=== PATIENT | female | born 1965 | race Caucasian/White ===

== ENCOUNTER 2025-03-29 13:23 | Emergency (ER) | payer SELFPAY ==
[2025-03-29 13:43] VITALS: BP 119/81; BP 140/86; PULSE 100; PULSE 101; RESP 19; TEMP 36.5; O2SAT 95; O2SAT 98; BMI 28.2
--- NOTE | 2025-03-29 14:02 | ED_ITS ---
HPI - General Adult General Chief complaint: General Medical Stated complaint: DIZZINESS SLURRED SPEECH FEET SWELLING Time Seen by Provider: 03/29/25 14:02 Source: patient and EMS Mode of arrival: EMS Limitations: no limitations History of Present Illness ED Provider: HPI narrative: 59-year-old transgender female presenting after she was picked up on the sidewalk she states that she was walking back home to [place], [place], states the weather was hot so she laid down to cool down on the sidewalk when somebody pulled up she told him she does not need help but was transported to the hospital, she was seen at [facility] and concerns were addressed she has a old lip plaque from a fall, and reports that has history of paraphimosis. Has not missed dialysis, no chest pain no slurred speech no new trauma. I looked at patient's visit from [facility]. Related Data Previous Rx's ?Medication ?Instructions ?Recorded clotrimazole-betamethasone 1 1 appl topical BID #15 gr ams 03/29/25 %-0.05 % topical cream Allergies Allergy/AdvReac Type Severity Reaction Status Date / Time No Known Allergies Allergy Verified 03/29/25 13:48 Review of Systems Constitutional: Constitutional: Reports as per HPI Physical Exam ED Vital Signs: Vital Signs - 24 hr 03/29/25 13:43 Temperature 97.7 F Pulse Rate 101 H Respiratory Rate 19 Blood Pressure 119/81 Pulse Oximetry 95 Oxygen Delivery Method Room Air BMI result Body Mass Index 28.2 Const Other: * Gen: ?Overall well-appearing patient * CV: RRR, no obvious murmurs appreciated * Resp: ?No wheezing rales rhonchi no stridor moving air well * Abd: ?Bowel sounds are present, no tenderness no rebound no rigidity * MSK: Bilateral pitting lower extremity edema, right side it AV fistula, functional * : Phimosis with balanitis * Skin: Noninfected lower lip scratch, no jaundice, noninfected skin markings * Neuro: ?Alert and oriented x3, moving upper and lower extremities symmetrically, no obvious facial asymmetry noted Medical Decision Making Medical Decision Making [facility] Narrative: 2:44 PM 03/29/2025 (Dr. Nithin Poe): with phimosis, balanitis we will discharge with clotrimazole and betamethasone to [facility] no new trauma, blood work at [facility] has been reassuring, patient states that there was no new falls reported, no SI or HI, has functional AV fistula, no evidence that patient requires repeat imaging or blood work Differential Diagnosis Differential Diagnoses: The differential diagnosis associated with the presentation includes (See above) Admission/Observation Consideration of admission/observation: Escalation of care including admiss ion/observation considered Independent Historian Clinical information obtained from an independent historian. History obtained from or confirmed by: EMS External Record Review External record reviewed: Outside ED record Tests considered The following testing was considered but not selected: CT brain, ECG, blood work Prescription Management I considered prescription management with: Antibiotic Discharge Plan Discharge Clinical Impression: ESRD (end stage renal disease) on dialysis, Bilateral edema of lower extremity Patient Disposition: Home, Self-Care Additional Instructions: Clean the area with gentle soap on wash with water, dry clean and put ointment twice a day I reviewed your workup at [facility] Otherwise please stay hydrated, get home safe Prescriptions: New clotrimazole-betamethasone 1-0.05 % cream 1 appl topical BID Qty: 15 0RF Print Language: Faroese
--- OUTSIDE RECORDS SUMMARY | 2025-03-29 14:05 | XMS_ITS ---
Author Name [facility] Organization Unknown Results Test Name/Text Value Interpretation Date Range Source BUN SerPl-mCnc 100.0 mg/dL Above high normal 03/26/20 2 5 8 - 21 [facility] CO2 SerPl-sCnc 23.0 mmol/L 5 22 - 33 [facility] Potassium SerPl-sCnc 5.0 mmol/L 5 3.4 - 5.3 [facility] BUN/Creat SerPl 9.0 Ratio Below low normal 03/26/20 2 5 10 - 25 [facility] Anion Gap Bld-sCnc 20.0 Above high normal 03/03 5 7 - 17 [facility] Chloride SerPl-sCnc 102.0 mmol/L 5 98 - 107 [facility] Glucose SerPl-mCnc 104.0 mg/dL Above high normal 03/03 5 65 - 99 [facility] Creat SerPl-mCnc 11.54 mg/dL Above high normal 5 0.4 - 1.1 [facility] Calcium SerPl-mCnc 9.4 mg/dL 5 8.7 - 10.5 [facility] GFR/BSA.pred SerPlBld AQT-VAL-VgVNgw 3.0 Below low normal 5 59 - [facility] Sodium SerPl-sCnc 145.0 mmol/L 5 136 - 145 [facility] LMWH PPP Project Design Engineer-aCnc >2.0 IU/mL Critically high 5 [facility] Anticoagulant APIXABAN (ELIQUIS) 03/26/20 2 5 [facility] aPTT PPP 35.0 seconds 5 25 - 36 [facility] Anticoagulant APIXABAN (ELIQUIS) 03/26/20 2 5 [facility] Prothrombin time 23.4 seconds Above high normal 5 10 - 13.5 [facility] INR PPP 2.0 5 [facility] Anticoagulant APIXABAN (ELIQUIS) 03/26/20 2 5 [facility] Imm Granulocytes/leuk NFr Bld Auto 1.1 % 5 [facility] MCH RBC Qn Auto 27.8 pg 5 27 - 31 [facility] Monocytes/leuk NFr Bld Auto 8.3 % 5 [facility] Monocytes num Bld Auto 0.38 Thou/uL 5 0.2 - 1.5 [facility] MCV RBC Auto 94.0 fL 5 80 - 100 [facility] Eosinophil/leuk NFr Bld Auto 3.7 % 5 [facility] Platelet num Bld Auto 138.0 Thou/uL Below low normal 5 150 - 450 [facility] PMV Bld Auto 11.8 fL 5 7.5 - 12.5 [facility] Hgb Bld-mCnc 11.6 g/dL Below low normal 5 11.7 - 15.7 [facility] Eosinophil num Bld Auto 0.17 Thou/uL 5 0 - 0.7 [facility] nRBC/100 WBC Bld Auto-Rto 1.1 /100 WBC Above high normal 5 0 - 0.1 [facility] Neutrophils num Bld Auto 2.63 Thou/uL 5 2 - 7.5 [facility] Basophils/leuk NFr Bld Auto 0.9 % 5 [facility] Neutrophils/leuk NFr Bld Auto 57.4 % 5 [facility] Basophils num Bld Auto 0.04 Thou/uL 5 0 - 0.2 [facility] Lymphocytes num Bld Auto 1.31 Thou/uL Below low normal 5 1.5 - 4.5 [facility] nRBC num Bld Auto 0.05 Thou/uL Above high normal 03/26 5 0 - 0.02 [facility] RDW RBC Auto-Rto 21.7 % Above high normal 5 11.5 - 14.5 [facility] Lymphocytes/leuk NFr Bld Auto 28.6 % 5 [facility] Imm Granulocytes num Bld Auto 0.05 Thou/uL 5 0 - 0.1 [facility]CT MCHC RBC Auto-mCnc 29.7 g/dL Below low normal 03/26 5 30 - 36 [facility] WBC num Bld Auto 4.6 Thou/uL 5 4 - 11 [facility] Hct VFr Bld Auto 39.0 % 5 35 - 47 [facility] RBC num Bld Auto 4.17 Mil/uL 5 4 - 5.4 [facility] Rh Bld Positive 5 [facility] Bld gp Ab Scn SerPl Ql Negative 5 [facility] ABO Group Bld A 5 [facility] Glucose SerPl-mCnc 114.0 mg/dL 5 70 - 199 [facility] Potassium SerPl-sCnc 5.0 mmol/L 5 3.5 - 5.1 [facility] Bilirub SerPl-mCnc 1.9 mg/dL Above high normal 03/03 5 0.3 - 1 [facility] ALT SerPl-cCnc 6.0 unit/L Below low normal 5 7 - 52 [facility] Chloride SerPl-sCnc 95.0 mmol/L Below low normal 5 98 - 107 [facility] Sodium SerPl-sCnc 139.0 mmol/L 5 135 - 145 [facility] Calcium SerPl-mCnc 9.7 mg/dL 5 8.4 - 10.2 [facility] Prot SerPl-mCnc 7.0 g/dL 5 6.4 - 8.5 [facility] AST SerPl-cCnc 28.0 unit/L 5 5 - 40 [facility] Creat SerPl-mCnc 11.0 mg/dL Above high normal 5 0.5 - 1.3 [facility] ALP SerPl-cCnc 77.0 unit/L 5 34 - 104 [facility] CO2 SerPl-sCnc 28.0 mmol/L 5 24 - 32 [facility] Albumin SerPl-mCnc 3.9 g/dL 5 3.5 - 5 [facility] BUN/Creat SerPl 7.9 Below low normal 03/25/20 2 5 12 - 20 [facility] Anion Gap SerPl Calc-sCnc 16.0 Above high normal 5 5 - 14 [facility] eGFRcr SerPlBld CKD-EPI 2020 5.0 mL/min/1.73m2 Below low normal 5 - [facility] BUN SerPl-mCnc 87.0 mg/dL 5 [facility] INR PPP 2.2 Above high normal 5 0.8 - 1.1 [facility] PT Bld 25.3 sec Above high normal 5 10.5 - 13.3 [facility] aPTT PPP 33.3 sec 5 25 - 37 [facility] Polychromasia Present Present 5 [facility] Neuts Seg NFr Bld Manual 82.0 % Above high normal 5 44 - 74 [facility] Basophils NFr Bld Manual 1.0 % 5 0 - 2 [facility] Monocytes # Bld Manual 0.14 K/mcL 5 0 - 0.8 [facility] Basophils # Bld Manual 0.07 K/mcL 5 0 - 0.2 [facility] Monocytes NFr Bld Manual 2.0 % 5 2 - 12 [facility] Neuts Seg # Bld Manual 5.58 K/mcL 5 1.8 - 7.8 [facility] Lymphocytes # Bld Manual 1.02 K/mcL 5 1 - 3.2 [facility] Lymphocytes NFr Bld Manual 15.0 % Below low normal 5 20 - 48 [facility] Macrocytes Present Present 5 [facility] RDW RBC Auto 23.4 % Above high normal 5 12.1 - 17.7 [facility] Platelet # Bld Auto 173.0 K/mcL 5 150 - 450 [facility] RBC # Bld Auto 4.62 M/mcL 5 4.2 - 6 [facility] WBC # Bld Auto 6.8 K/mcL 5 4 - 10.5 [facility] Hgb Bld-mCnc 13.2 g/dL 5 12.5 - 18 [facility] MCH RBC Qn Auto 28.6 pcg 5 25 - 33 [facility] Hct VFr Bld Auto 41.4 % 5 37 - 54 [facility] MCHC RBC Auto-EntMCnc 31.9 g/dL Below low normal 5 32 - 36 [facility] RBC Auto 89.7 FL 5 78 - 100 [facility] PMV Bld Auto 9.0 FL 5 7.4 - 11.4 [facility] Chloride SerPl-sCnc 101.0 mmol/L 5 98 - 107 [facility] Potassium SerPl-sCnc 4.5 mmol/L 5 3.4 - 5.3 [facility] Sodium SerPl-sCnc 140.0 mmol/L 5 136 - 145 [facility] CO2 SerPl-sCnc 25.0 mmol/L 5 22 - 33 [facility] Glucose SerPl-mCnc 131.0 mg/dL Above high normal 03/02 5 65 - 99 [facility] Calcium SerPl-mCnc 9.2 mg/dL 5 8.7 - 10.5 [facility] Anion Gap Bld-sCnc 14.0 09/12/202 5 7 - 17 [facility] GFR/BSA.pred SerPlBld HZG-KJM-LiRVda 7.0 Below low normal 5 59 - [facility] BUN/Creat SerPl 9.0 Ratio Below low normal 03/13/20 2 5 10 - 25 [facility] BUN SerPl-mCnc 53.0 mg/dL Above high normal 03/13/20 2 5 8 - 21 [facility] Creat SerPl-mCnc 6.2 mg/dL Above high normal 5 0.4 - 1.1 [facility] Globulin Ser Calc-mCnc 3.1 g/dL 5 1.5 - 3.9 [facility] Prot SerPl-mCnc 6.8 g/dL 5 6.3 - 8.3 [facility] ALT SerPl-cCnc 10.0 U/L 5 10 - 50 [facility] Albumin SerPl-mCnc 3.7 g/dL 5 3.5 - 5 [facility] Albumin/Glob SerPl 1.2 Ratio 5 1 - 3 [facility] Bilirub Direct SerPl-mCnc Specimen hemolyzed. Test not performed. 5 0 - 0.2 [facility] ALP SerPl-cCnc 95.0 U/L 5 32 - 122 [facility] Bilirub SerPl-mCnc 1.1 mg/dL Above high normal 03/02 5 0.2 - 1 [facility] AST SerPl-cCnc 49.0 U/L 5 10 - 50 [facility] Magnesium SerPl-mCnc 2.1 mg/dL 5 1.6 - 2.7 [facility] pro BNP, N-terminal >32348.0 pg/mL Above high normal 5 - 125 [facility] PMV Bld Auto 11.1 fL 5 7.5 - 12.5 [facility] RBC num Bld Auto 4.41 Mil/uL 5 4 - 5.4 [facility] Basophils num Bld Auto 0.03 Thou/uL 5 0 - 0.2 [facility] WBC num Bld Auto 6.3 Thou/uL 5 4 - 11 [facility] MCV RBC Auto 93.0 fL 5 80 - 100 [facility] Hgb Bld-mCnc 12.6 g/dL 5 11.7 - 15.7 [facility] Eosinophil/leuk NFr Bld Auto 1.9 % 5 [facility] RDW RBC Auto-Rto 21.3 % Above high normal 5 11.5 - 14.5 [facility] Lymphocytes/leuk NFr Bld Auto 20.0 % 5 [facility] Eosinophil num Bld Auto 0.12 Thou/uL 5 0 - 0.7 [facility] Imm Granulocytes/leuk NFr Bld Auto 0.3 % 5 [facility] Imm Granulocytes num Bld Auto 0.02 Thou/uL 5 0 - 0.1 [facility] Neutrophils/leuk NFr Bld Auto 66.2 % 5 [facility] Neutrophils num Bld Auto 4.17 Thou/uL 5 2 - 7.5 [facility] Basophils/leuk NFr Bld Auto 0.5 % 5 [facility] Lymphocytes num Bld Auto 1.26 Thou/uL Below low normal 5 1.5 - 4.5 [facility] Monocytes/leuk NFr Bld Auto 11.1 % 5 [facility] MCH RBC Qn Auto 28.6 pg 5 27 - 31 [facility] Platelet num Bld Auto 149.0 Thou/uL Below low normal 5 150 - 450 [facility] Monocytes num Bld Auto 0.7 Thou/uL 5 0.2 - 1.5 [facility] MCHC RBC Auto-mCnc 30.7 g/dL 5 30 - 36 [facility] Hct VFr Bld Auto 41.1 % 5 35 - 47 [facility] LMWH PPP Project Design Engineer-aCnc Blood/anticoagulant ratio of specimen is unsatisfactory for testing, please repeat. 5 [facility] Anticoagulant IV HEPARIN, UNFRACTIONATED 5 [facility] CO2 SerPl-sCnc 19.0 mmol/L Below low normal 5 22 - 33 [facility] GFR/BSA.pred SerPlBld EFW-KAL-JxNRqw 5.0 Below low normal 5 59 - [facility] Anion Gap Bld-sCnc 20.0 Above high normal 5 7 - 17 [facility] Creat SerPl-mCnc 9.0 mg/dL Above high normal 5 0.4 - 1.1 [facility]CT Chloride SerPl-sCnc 97.0 mmol/L Below low normal 5 98 - 107 [facility] BUN/Creat SerPl 8.0 Ratio Below low normal 03/10/20 2 5 10 - 25 [facility] Glucose SerPl-mCnc 191.0 mg/dL Above high normal 5 65 - 99 [facility] Calcium SerPl-mCnc 8.9 mg/dL 5 8.7 - 10.5 [facility]CT BUN SerPl-mCnc 76.0 mg/dL Above high normal 03/10/20 2 5 8 - 21 [facility] Potassium SerPl-sCnc 4.5 mmol/L 5 3.4 - 5.3 [facility] Sodium SerPl-sCnc 136.0 mmol/L 5 136 - 145 [facility] RBC num Bld Auto 4.24 Mil/uL 5 4 - 5.4 [facility] nRBC num Bld Auto 0.03 Thou/uL Above high normal 03/10 5 0 - 0.02 [facility] Hgb Bld-mCnc 12.4 g/dL 5 11.7 - 15.7 [facility] WBC num Bld Auto 5.1 Thou/uL 5 4 - 11 [facility] nRBC/100 WBC Bld Auto-Rto 0.6 /100 WBC Above high normal 5 0 - 0.1 [facility] MCV RBC Auto 93.0 fL 5 80 - 100 [facility] PMV Bld Auto 11.9 fL 5 7.5 - 12.5 [facility]CT Hct VFr Bld Auto 39.2 % 5 35 - 47 [facility] MCHC RBC Auto-mCnc 31.6 g/dL 5 30 - 36 [facility] RDW RBC Auto-Rto 21.6 % Above high normal 5 11.5 - 14.5 [facility] MCH RBC Qn Auto 29.2 pg 5 27 - 31 [facility] Platelet num Bld Auto 142.0 Thou/uL Below low normal 5 150 - 450 [facility] LMWH PPP Project Design Engineer-aCnc 0.31 IU/mL 5 [facility] Anticoagulant IV HEPARIN, UNFRACTIONATED 5 [facility] Platelet num Bld Auto 131.0 Thou/uL Below low normal 5 150 - 450 [facility] RDW RBC Auto-Rto 21.7 % Above high normal 5 11.5 - 14.5 [facility]CT nRBC num Bld Auto 0.02 Thou/uL 5 0 - 0.02 [facility] RBC num Bld Auto 4.38 Mil/uL 5 4 - 5.4 [facility] PMV Bld Auto 11.2 fL 5 7.5 - 12.5 [facility] nRBC/100 WBC Bld Auto-Rto 0.4 /100 WBC Above high normal 5 0 - 0.1 [facility]CT MCHC RBC Auto-mCnc 30.4 g/dL 5 30 - 36 [facility] Immature Platelet Fraction 7.7 % 5 1.2 - 8.6 [facility] MCV RBC Auto 94.0 fL 5 80 - 100 [facility] WBC num Bld Auto 5.2 Thou/uL 5 4 - 11 [facility] Hgb Bld-mCnc 12.5 g/dL 5 11.7 - 15.7 [facility]CT Hct VFr Bld Auto 41.1 % 5 35 - 47 [facility] MCH RBC Qn Auto 28.5 pg 5 27 - 31 [facility] Phosphate SerPl-mCnc 5.4 mg/dL Above high normal 5 2.7 - 4.5 [facility] Sodium SerPl-sCnc 140.0 mmol/L 5 136 - 145 [facility] BUN SerPl-mCnc 64.0 mg/dL Above high normal 03/09/20 2 5 8 - 21 [facility] Calcium SerPl-mCnc 9.4 mg/dL 5 8.7 - 10.5 [facility]CT Potassium SerPl-sCnc 4.2 mmol/L 5 3.4 - 5.3 [facility]CT GFR/BSA.pred SerPlBld KDV-NSW-SePAdg 5.0 Below low normal 5 59 - [facility]CT CO2 SerPl-sCnc 24.0 mmol/L 5 22 - 33 [facility] BUN/Creat SerPl 8.0 Ratio Below low normal 03/09/20 2 5 10 - 25 [facility] Anion Gap Bld-sCnc 19.0 Above high normal 5 7 - 17 [facility] Creat SerPl-mCnc 8.0 mg/dL Above high normal 5 0.4 - 1.1 [facility]CT Chloride SerPl-sCnc 97.0 mmol/L Below low normal 5 98 - 107 [facility] Glucose SerPl-mCnc 119.0 mg/dL Above high normal 5 65 - 99 [facility]CT Magnesium SerPl-mCnc 2.6 mg/dL 5 1.6 - 2.7 [facility]CT Prothrombin time 14.7 seconds Above high normal 5 10 - 13.5 [facility]CT INR PPP 1.3 5 [facility]CT Anticoagulant IV HEPARIN, UNFRACTIONATED 5 [facility] LMWH PPP Project Design Engineer-aCnc 0.52 IU/mL 5 [facility]CT Anticoagulant IV HEPARIN, UNFRACTIONATED 5 [facility] LMWH PPP Project Design Engineer-aCnc 0.47 IU/mL 5 [facility]CT Anticoagulant IV HEPARIN, UNFRACTIONATED 5 [facility]CT LMWH PPP Project Design Engineer-aCnc 0.43 IU/mL 5 [facility]CT Anticoagulant IV HEPARIN, UNFRACTIONATED 5 [facility]CT Calcium SerPl-mCnc 9.0 mg/dL 5 8.7 - 10.5 [facility]CT Anion Gap Bld-sCnc 17.0 5 7 - 17 [facility] CO2 SerPl-sCnc 24.0 mmol/L 5 22 - 33 [facility]CT BUN SerPl-mCnc 60.0 mg/dL Above high normal 03/08/20 2 5 8 - 21 [facility]CT Potassium SerPl-sCnc 4.4 mmol/L 5 3.4 - 5.3 HHCCT GFR/BSA.pred SerPlBld UAK-QJE-KpJZru 6.0 Below low normal 5 59 - HHCCT BUN/Creat SerPl 9.0 Ratio Below low normal 03/08/20 2 5 10 - 25 [facility] Glucose SerPl-mCnc 133.0 mg/dL Above high normal 5 65 - 99 [facility]CT Chloride SerPl-sCnc 97.0 mmol/L Below low normal 5 98 - 107 [facility]CT Sodium SerPl-sCnc 138.0 mmol/L 5 136 - 145 [facility] Creat SerPl-mCnc 6.9 mg/dL Above high normal 5 0.4 - 1.1 [facility] LMWH PPP Project Design Engineer-aCnc 0.27 IU/mL 5 [facility]CT Anticoagulant IV HEPARIN, UNFRACTIONATED 5 [facility]CT Calcium SerPl-mCnc 9.2 mg/dL 5 8.7 - 10.5 [facility]CT Potassium SerPl-sCnc 4.7 mmol/L 5 3.4 - 5.3 [facility]CT Sodium SerPl-sCnc 136.0 mmol/L 5 136 - 145 [facility] Creat SerPl-mCnc 6.7 mg/dL Above high normal 5 0.4 - 1.1 [facility]CT Anion Gap Bld-sCnc 15.0 5 7 - 17 [facility]CT BUN SerPl-mCnc 57.0 mg/dL Above high normal 03/08/20 2 5 8 - 21 [facility]CT BUN/Creat SerPl 9.0 Ratio Below low normal 03/08/20 2 5 10 - 25 [facility]CT GFR/BSA.pred SerPlBld NUX-ABQ-UgDYqm 7.0 Below low normal 5 59 - HHCCT Chloride SerPl-sCnc 97.0 mmol/L Below low normal 5 98 - 107 [facility]CT Glucose SerPl-mCnc 122.0 mg/dL Above high normal 09/0 5 65 - 99 [facility]CT CO2 SerPl-sCnc 24.0 mmol/L 5 22 - 33 [facility]CT WBC num Bld Auto 6.3 Thou/uL 5 4 - 11 [facility]CT RDW RBC Auto-Rto 21.5 % Above high normal 5 11.5 - 14.5 [facility]CT nRBC/100 WBC Bld Auto-Rto 0.3 /100 WBC Above high normal 5 0 - 0.1 [facility] Platelet num Bld Auto 175.0 Thou/uL 5 150 - 450 [facility] RBC num Bld Auto 4.83 Mil/uL 5 4 - 5.4 [facility]CT MCHC RBC Auto-mCnc 30.9 g/dL 5 30 - 36 [facility]CT nRBC num Bld Auto 0.02 Thou/uL 5 0 - 0.02 H[facility]CT PMV Bld Auto 11.7 fL 5 7.5 - 12.5 HHCCT Hct VFr Bld Auto 44.4 % 5 35 - 47 [facility]CT MCH RBC Qn Auto 28.4 pg 5 27 - 31 [facility]CT Hgb Bld-mCnc 13.7 g/dL 5 11.7 - 15.7 [facility]HCCT MCV RBC Auto 92.0 fL 5 80 - 100 [facility] LMWH PPP Project Design Engineer-aCnc 0.21 IU/mL 5 [facility]CT Anticoagulant IV HEPARIN, UNFRACTIONATED 5 [facility]CT RBC num Bld Auto 4.82 Mil/uL 5 4 - 5.4 [facility]HCCT nRBC num Bld Auto 0.03 Thou/uL Above high normal 03/08 5 0 - 0.02 [facility]CT Platelet num Bld Auto 186.0 Thou/uL 5 150 - 450 [facility]CT MCHC RBC Auto-mCnc 31.0 g/dL 5 30 - 36 [facility]CT PMV Bld Auto 11.3 fL 5 7.5 - 12.5 HHCCT Hct VFr Bld Auto 44.5 % 5 35 - 47 [facility]CT Hgb Bld-mCnc 13.8 g/dL 5 11.7 - 15.7 HHCCT nRBC/100 WBC Bld Auto-Rto 0.6 /100 WBC Above high normal 5 0 - 0.1 [facility]HCCT RDW RBC Auto-Rto 21.5 % Above high normal 5 11.5 - 14.5 HHCCT MCH RBC Qn Auto 28.6 pg 5 27 - 31 [facility]CT WBC num Bld Auto 5.4 Thou/uL 5 4 - 11 [facility]CT MCV RBC Auto 92.0 fL 5 80 - 100 [facility]CT HBV surface Ag Ser Ql Nonreactive 5 - [facility]CT LMWH PPP Project Design Engineer-aCnc 0.31 IU/mL 5 [facility]CT Anticoagulant IV HEPARIN, UNFRACTIONATED 5 [facility]HCCT Calcium SerPl-mCnc 10.2 mg/dL 5 8.7 - 10.5 HHCCT Chloride SerPl-sCnc 100.0 mmol/L 5 98 - 107 [facility]CT GFR/BSA.pred SerPlBld HIS-BCG-DsBDgs 5.0 Below low normal 5 59 - HHCCT Creat SerPl-mCnc 8.3 mg/dL Above high normal 5 0.4 - 1.1 [facility]CT BUN SerPl-mCnc 90.0 mg/dL Above high normal 03/07/20 2 5 8 - 21 [facility] BUN/Creat SerPl 11.0 Ratio 5 10 - 25 [facility]CT Potassium SerPl-sCnc 6.4 mmol/L Critically high 5 3.4 - 5.3 H[facility]CT Sodium SerPl-sCnc 142.0 mmol/L 5 136 - 145 [facility] Glucose SerPl-mCnc 84.0 mg/dL 5 65 - 99 [facility]CT CO2 SerPl-sCnc 20.0 mmol/L Below low normal 5 22 - 33 [facility]CT Anion Gap Bld-sCnc 22.0 Above high normal 5 7 - 17 [facility]CT GFR/BSA.pred SerPlBld XPR-KYQ-BgTKok 5.0 Below low normal 5 59 - [facility]HCCT Calcium SerPl-mCnc 10.4 mg/dL 5 8.7 - 10.5 [facility]CT Anion Gap Bld-sCnc 23.0 Above high normal 5 7 - 17 [facility]CT BUN SerPl-mCnc 88.0 mg/dL Above high normal 03/07/20 2 5 8 - 21 [facility]CT Potassium SerPl-sCnc 6.7 mmol/L Critically high 5 3.4 - 5.3 H[facility]CT BUN/Creat SerPl 11.0 Ratio 5 10 - 25 [facility]CT Glucose SerPl-mCnc 77.0 mg/dL 5 65 - 99 [facility] CO2 SerPl-sCnc 18.0 mmol/L Below low normal 5 22 - 33 [facility]CT Creat SerPl-mCnc 8.1 mg/dL Above high normal 5 0.4 - 1.1 [facility]CT Sodium SerPl-sCnc 141.0 mmol/L 5 136 - 145 [facility]CT Chloride SerPl-sCnc 100.0 mmol/L 5 98 - 107 [facility] LMWH PPP Project Design Engineer-aCnc 0.7 IU/mL 5 H[facility]CT Anticoagulant IV HEPARIN, UNFRACTIONATED 5 HHCCT RBC num Bld Auto 5.04 Mil/uL 5 4 - 5.4 HHCCT Hct VFr Bld Auto 47.5 % Above high normal 5 35 - 47 [facility]CT WBC num Bld Auto 6.7 Thou/uL 5 4 - 11 [facility]CT MCHC RBC Auto-mCnc 30.3 g/dL 5 30 - 36 [facility]CT Basophils num Bld Auto 0.04 Thou/uL 5 0 - 0.2 HHCCT Eosinophil num Bld Auto 0.04 Thou/uL 5 0 - 0.7 [facility]CT Imm Granulocytes num Bld Auto 0.03 Thou/uL 5 0 - 0.1 HHCCT Basophils/leuk NFr Bld Auto 0.6 % 5 [facility]CT nRBC/100 WBC Bld Auto-Rto 1.0 /100 WBC Above high normal 5 0 - 0.1 [facility]CT Lymphocytes/leuk NFr Bld Auto 31.9 % 5 [facility]CT Eosinophil/leuk NFr Bld Auto 0.6 % 5 [facility]CT Neutrophils num Bld Auto 3.97 Thou/uL 5 2 - 7.5 HHCCT MCH RBC Qn Auto 28.6 pg 5 27 - 31 [facility]CT Lymphocytes num Bld Auto 2.14 Thou/uL 5 1.5 - 4.5 [facility]CT Neutrophils/leuk NFr Bld Auto 59.3 % 5 [facility]CT Monocytes/leuk NFr Bld Auto 7.2 % 5 [facility]CT Imm Granulocytes/leuk NFr Bld Auto 0.4 % 5 [facility]CT RDW RBC Auto-Rto 22.3 % Above high normal 5 11.5 - 14.5 [facility]HCCT Hgb Bld-mCnc 14.4 g/dL 5 11.7 - 15.7 HHCCT PMV Bld Auto 12.1 fL 5 7.5 - 12.5 [facility]CT Platelet num Bld Auto 201.0 Thou/uL 5 150 - 450 [facility]CT Monocytes num Bld Auto 0.48 Thou/uL 5 0.2 - 1.5 [facility]HCCT nRBC num Bld Auto 0.07 Thou/uL Above high normal 03/07 5 0 - 0.02 HHCCT MCV RBC Auto 94.0 fL 5 80 - 100 [facility] LMWH PPP Project Design Engineer-aCnc 1.2 IU/mL 5 [facility]CT Anticoagulant IV HEPARIN, UNFRACTIONATED 5 [facility]CT LMWH PPP Project Design Engineer-aCnc 0.98 IU/mL 5 [facility]CT Anticoagulant APIXABAN (ELIQUIS) 03/06/20 2 5 [facility] INR PPP 2.2 5 [facility]CT Prothrombin time 25.4 seconds Above high normal 5 10 - 13.5 [facility]CT Anticoagulant IV HEPARIN, UNFRACTIONATED 5 [facility]HCCT aPTT PPP 35.0 seconds 5 25 - 36 [facility]CT Anticoagulant IV HEPARIN, UNFRACTIONATED 5 [facility]HCCT MCHC RBC Auto-mCnc 29.3 g/dL Below low normal 03/06 5 30 - 36 H[facility]CT WBC num Bld Auto 7.3 Thou/uL 5 4 - 11 [facility]CT Hgb Bld-mCnc 14.6 g/dL 5 11.7 - 15.7 [facility]HCCT MCV RBC Auto 94.0 fL 5 80 - 100 [facility]CT nRBC/100 WBC Bld Auto-Rto 0.4 /100 WBC Above high normal 5 0 - 0.1 [facility]CT MCH RBC Qn Auto 27.5 pg 5 27 - 31 [facility]CT RDW RBC Auto-Rto 22.4 % Above high normal 5 11.5 - 14.5 [facility]CT Platelet num Bld Auto 176.0 Thou/uL 5 150 - 450 [facility]CT PMV Bld Auto 11.5 fL 5 7.5 - 12.5 [facility]CT RBC num Bld Auto 5.31 Mil/uL 5 4 - 5.4 HHCCT nRBC num Bld Auto 0.03 Thou/uL Above high normal 03/06 5 0 - 0.02 HHCCT Hct VFr Bld Auto 49.9 % Above high normal 5 35 - 47 [facility]CT Chloride SerPl-sCnc 103.0 mmol/L 5 98 - 107 [facility]CT Sodium SerPl-sCnc 143.0 mmol/L 5 136 - 145 [facility]CT GFR/BSA.pred SerPlBld [id number]-HZN-FnVGnp 6.0 Below low normal 5 59 - [facility]HCCT Glucose SerPl-mCnc 149.0 mg/dL Above high normal 5 65 - 99 [facility]CT BUN/Creat SerPl 10.0 Ratio 5 10 - 25 [facility]CT Creat SerPl-mCnc 7.2 mg/dL Above high normal 5 0.4 - 1.1 HHCCT Potassium SerPl-sCnc 5.5 mmol/L Above high normal 5 3.4 - 5.3 HHCCT BUN SerPl-mCnc 75.0 mg/dL Above high normal 03/06/20 2 5 8 - 21 [facility]CT Anion Gap Bld-sCnc 19.0 Above high normal 5 7 - 17 [facility]CT Calcium SerPl-mCnc 10.0 mg/dL 5 8.7 - 10.5 [facility]CT CO2 SerPl-sCnc 21.0 mmol/L Below low normal 5 22 - 33 [facility]CT Prothrombin time 23.7 seconds Above high normal 5 10 - 13.5 HHCCT INR PPP 2.1 5 HHCCT Anticoagulant OTHER AGENT OR UNKNOWN 5 HHCCT MCV RBC Auto 94.0 fL 5 80 - 100 [facility]CT Hgb Bld-mCnc 14.3 g/dL 5 11.7 - 15.7 HHCCT PMV Bld Auto 11.7 fL 5 7.5 - 12.5 HHCCT nRBC num Bld Auto 0.02 Thou/uL 5 0 - 0.02 [facility]CT Platelet num Bld Auto 180.0 Thou/uL 5 150 - 450 [facility]CT MCHC RBC Auto-mCnc 29.4 g/dL Below low normal 03/06 5 30 - 36 [facility]CT RDW RBC Auto-Rto 22.2 % Above high normal 5 11.5 - 14.5 HHCCT MCH RBC Qn Auto 27.5 pg 5 27 - 31 [facility]CT nRBC/100 WBC Bld Auto-Rto 0.3 /100 WBC Above high normal 5 0 - 0.1 HHCCT Hct VFr Bld Auto 48.7 % Above high normal 5 35 - 47 [facility]CT RBC num Bld Auto 5.2 Mil/uL 5 4 - 5.4 HHCCT WBC num Bld Auto 7.2 Thou/uL 5 4 - 11 HHCCT BUN/Creat SerPl 10.0 Ratio 5 10 - 25 HHCCT Prot SerPl-mCnc 6.7 g/dL 5 6.3 - 8.3 HHCCT GFR/BSA.pred SerPlBld VKW-FHE-KiEXet 8.0 Below low normal 5 59 - HHCCT Bilirub SerPl-mCnc 1.5 mg/dL Above high normal 5 0.2 - 1 HHCCT ALP SerPl-cCnc 87.0 U/L 5 32 - 122 HHCCT Albumin SerPl-mCnc 3.7 g/dL 5 3.5 - 5 HHCCT Globulin Ser Calc-mCnc 3.0 g/dL 5 1.5 - 3.9 HHCCT Calcium SerPl-mCnc 9.8 mg/dL 5 8.7 - 10.5 HHCCT Potassium SerPl-sCnc 4.9 mmol/L 5 3.4 - 5.3 HHCCT Creat SerPl-mCnc 6.0 mg/dL Above high normal 5 0.4 - 1.1 [facility] Glucose SerPl-mCnc 95.0 mg/dL 5 65 - 99 [facility] ALT SerPl-cCnc 15.0 U/L 5 10 - 50 [facility] Anion Gap Bld-sCnc 18.0 Above high normal 5 7 - 17 [facility] Sodium SerPl-sCnc 142.0 mmol/L 5 136 - 145 [facility] Chloride SerPl-sCnc 101.0 mmol/L 5 98 - 107 [facility] AST SerPl-cCnc 21.0 U/L 5 10 - 50 [facility] Albumin/Glob SerPl 1.2 Ratio 5 1 - 3 [facility] CO2 SerPl-sCnc 23.0 mmol/L 5 22 - 33 [facility] BUN SerPl-mCnc 61.0 mg/dL Above high normal 03/05/20 2 5 8 - 21 [facility] INR PPP 2.2 5 [facility] Prothrombin time 25.6 seconds Above high normal 5 10 - 13.5 [facility] Anticoagulant APIXABAN (ELIQUIS) 03/05/20 2 5 [facility] Imm Granulocytes num Bld Auto 0.02 Thou/uL 5 0 - 0.1 [facility] Hgb Bld-mCnc 14.0 g/dL 5 11.7 - 15.7 [facility] Platelet num Bld Auto 155.0 Thou/uL 5 150 - 450 [facility] Lymphocytes num Bld Auto 1.71 Thou/uL 5 1.5 - 4.5 [facility] MCV RBC Auto 95.0 fL 5 80 - 100 [facility] Basophils num Bld Auto 0.04 Thou/uL 5 0 - 0.2 [facility] Lymphocytes/leuk NFr Bld Auto 27.1 % 5 [facility] WBC num Bld Auto 6.3 Thou/uL 5 4 - 11 [facility] Neutrophils num Bld Auto 3.86 Thou/uL 5 2 - 7.5 [facility] MCHC RBC Auto-mCnc 30.1 g/dL 5 30 - 36 [facility] RDW RBC Auto-Rto 22.0 % Above high normal 5 11.5 - 14.5 [facility] nRBC/100 WBC Bld Auto-Rto 0.3 /100 WBC Above high normal 5 0 - 0.1 [facility] Imm Granulocytes/leuk NFr Bld Auto 0.3 % 5 [facility] nRBC num Bld Auto 0.02 Thou/uL 5 0 - 0.02 [facility] Eosinophil num Bld Auto 0.08 Thou/uL 5 0 - 0.7 [facility] Monocytes num Bld Auto 0.6 Thou/uL 5 0.2 - 1.5 [facility] Basophils/leuk NFr Bld Auto 0.6 % 5 [facility] MCH RBC Qn Auto 28.6 pg 5 27 - 31 [facility] PMV Bld Auto 11.7 fL 5 7.5 - 12.5 [facility] Neutrophils/leuk NFr Bld Auto 61.2 % 5 [facility] Eosinophil/leuk NFr Bld Auto 1.3 % 5 [facility] RBC num Bld Auto 4.89 Mil/uL 5 4 - 5.4 [facility] Monocytes/leuk NFr Bld Auto 9.5 % 5 [facility] Hct VFr Bld Auto 46.5 % 5 35 - 47 [facility] pro BNP, N-terminal >76443.0 pg/mL Above high normal 5 - 125 [facility] Magnesium SerPl-mCnc 2.4 mg/dL 5 1.6 - 2.7 [facility] Glucose SerPl-mCnc 127.0 mg/dL Above high normal 5 65 - 99 [facility] BUN SerPl-mCnc 38.0 mg/dL Above high normal 03/04/20 2 5 8 - 21 [facility] GFR/BSA.pred SerPlBld [id number] 11.0 Below low normal 5 59 - [facility] Calcium SerPl-mCnc 9.3 mg/dL 5 8.7 - 10.5 [facility] BUN/Creat SerPl 9.0 Ratio Below low normal 03/04/20 2 5 10 - 25 [facility] Chloride SerPl-sCnc 99.0 mmol/L 5 98 - 107 [facility] Sodium SerPl-sCnc 139.0 mmol/L 5 136 - 145 [facility] Creat SerPl-mCnc 4.4 mg/dL Above high normal 5 0.4 - 1.1 [facility] Anion Gap Bld-sCnc 13.0 5 7 - 17 [facility] CO2 SerPl-sCnc 27.0 mmol/L 5 22 - 33 [facility] Potassium SerPl-sCnc 4.8 mmol/L 5 3.4 - 5.3 [facility] Hct VFr Bld Auto 44.8 % 5 35 - 47 [facility] Platelet num Bld Auto 148.0 Thou/uL Below low normal 5 150 - 450 [facility] MCH RBC Qn Auto 29.3 pg 5 27 - 31 [facility] MCHC RBC Auto-mCnc 30.8 g/dL 5 30 - 36 [facility] MCV RBC Auto 95.0 fL 5 80 - 100 [facility] RDW RBC Auto-Rto 21.4 % Above high normal 5 11.5 - 14.5 [facility] PMV Bld Auto 11.2 fL 5 7.5 - 12.5 [facility] Hgb Bld-mCnc 13.8 g/dL 5 11.7 - 15.7 [facility] WBC num Bld Auto 6.1 Thou/uL 5 4 - 11 [facility] RBC num Bld Auto 4.71 Mil/uL 5 4 - 5.4 [facility] BUN/Creat SerPl 8.0 Ratio Below low normal 03/03/20 2 5 10 - 25 [facility] Calcium SerPl-mCnc 9.4 mg/dL 5 8.7 - 10.5 [facility] Anion Gap Bld-sCnc 14.0 5 7 - 17 [facility] Potassium SerPl-sCnc 4.3 mmol/L 5 3.4 - 5.3 [facility] GFR/BSA.pred SerPlBld [id number] 8.0 Below low normal 5 59 - [facility] Sodium SerPl-sCnc 141.0 mmol/L 5 136 - 145 [facility] Glucose SerPl-mCnc 117.0 mg/dL Above high normal 5 65 - 99 [facility] BUN SerPl-mCnc 46.0 mg/dL Above high normal 03/03/20 2 5 8 - 21 [facility] CO2 SerPl-sCnc 30.0 mmol/L 5 22 - 33 [facility] Creat SerPl-mCnc 5.9 mg/dL Above high normal 5 0.4 - 1.1 [facility] Chloride SerPl-sCnc 97.0 mmol/L Below low normal 5 98 - 107 [facility] Magnesium SerPl-mCnc 2.5 mg/dL 5 1.6 - 2.7 [facility] Anion Gap Bld-sCnc 18.0 Above high normal 5 7 - 17 [facility] Glucose SerPl-mCnc 100.0 mg/dL Above high normal 5 65 - 99 [facility] BUN SerPl-mCnc 63.0 mg/dL Above high normal 03/02/20 2 5 8 - 21 [facility] Sodium SerPl-sCnc 141.0 mmol/L 5 136 - 145 [facility] Creat SerPl-mCnc 7.9 mg/dL Above high normal 5 0.4 - 1.1 [facility] Potassium SerPl-sCnc 5.0 mmol/L 5 3.4 - 5.3 [facility] BUN/Creat SerPl 8.0 Ratio Below low normal 03/02/20 2 5 10 - 25 [facility] CO2 SerPl-sCnc 26.0 mmol/L 5 22 - 33 [facility] Chloride SerPl-sCnc 97.0 mmol/L Below low normal 5 98 - 107 [facility] GFR/BSA.pred SerPlBld [id number] 5.0 Below low normal 5 59 - [facility] Calcium SerPl-mCnc 9.7 mg/dL 5 8.7 - 10.5 [facility] Magnesium SerPl-mCnc 2.8 mg/dL Above high normal 5 1.6 - 2.7 [facility] POC Glucose 127.0 mg/dL Above high normal 5 65 - 99 [facility] POC Glucose 156.0 mg/dL Above high normal 5 65 - 99 [facility] POC Glucose 138.0 mg/dL Above high normal 5 65 - 99 [facility] POC Glucose 126.0 mg/dL Above high normal 5 65 - 99 [facility] POC Glucose 130.0 mg/dL Above high normal 5 65 - 99 [facility] Magnesium SerPl-mCnc 2.5 mg/dL 5 1.6 - 2.7 [facility]CT Troponin T SerPl-mCnc 57.0 ng/L Critically high 5 - 15 [facility] Delta NO PREVIOUS RESULT 5 - 3 [facility] POC Glucose 171.0 mg/dL Above high normal 5 65 - 99 [facility] pro BNP, N-terminal >61178.0 pg/mL Above high normal 5 - 125 [facility] Calcium SerPl-mCnc 10.0 mg/dL 5 8.7 - 10.5 [facility] ALT SerPl-cCnc 13.0 U/L 5 10 - 50 [facility] Chloride SerPl-sCnc 98.0 mmol/L 5 98 - 107 [facility] ALP SerPl-cCnc 85.0 U/L 5 32 - 122 [facility] Creat SerPl-mCnc 5.4 mg/dL Above high normal 5 0.4 - 1.1 [facility]CT Bilirub SerPl-mCnc 1.9 mg/dL Above high normal 02/01 5 0.2 - 1 [facility] CO2 SerPl-sCnc 27.0 mmol/L 5 22 - 33 [facility] Albumin SerPl-mCnc 3.6 g/dL 5 3.5 - 5 [facility] Potassium SerPl-sCnc 4.5 mmol/L 5 3.4 - 5.3 [facility] BUN SerPl-mCnc 37.0 mg/dL Above high normal 02/29/20 2 5 8 - 21 [facility] AST SerPl-cCnc 20.0 U/L 5 10 - 50 [facility] Globulin Ser Calc-mCnc 3.0 g/dL 5 1.5 - 3.9 [facility] Prot SerPl-mCnc 6.6 g/dL 5 6.3 - 8.3 [facility] Glucose SerPl-mCnc 166.0 mg/dL Above high normal 02/01 5 65 - 99 [facility] Albumin/Glob SerPl 1.2 Ratio 5 1 - 3 [facility] Anion Gap Bld-sCnc 17.0 5 7 - 17 [facility] GFR/BSA.pred SerPlBld [id number] 9.0 Below low normal 5 59 - H[facility]CT BUN/Creat SerPl 7.0 Ratio Below low normal 02/29/20 2 5 10 - 25 [facility] Sodium SerPl-sCnc 142.0 mmol/L 5 136 - 145 [facility] Lymphocytes/leuk NFr Bld Auto 16.2 % 5 [facility] Basophils num Bld Auto 0.05 Thou/uL 5 0 - 0.2 [facility] nRBC num Bld Auto 0.04 Thou/uL Above high normal 02/28 5 0 - 0.02 [facility] Monocytes/leuk NFr Bld Auto 7.3 % 5 [facility] WBC num Bld Auto 8.2 Thou/uL 5 4 - 11 [facility] Neutrophils/leuk NFr Bld Auto 74.2 % 5 [facility] Lymphocytes num Bld Auto 1.33 Thou/uL Below low normal 5 1.5 - 4.5 [facility]CT MCHC RBC Auto-mCnc 30.7 g/dL 5 30 - 36 [facility] Hct VFr Bld Auto 42.4 % 5 35 - 47 [facility] Basophils/leuk NFr Bld Auto 0.6 % 5 [facility] PMV Bld Auto 11.0 fL 5 7.5 - 12.5 [facility] MCH RBC Qn Auto 28.8 pg 5 27 - 31 [facility] Monocytes num Bld Auto 0.6 Thou/uL 5 0.2 - 1.5 [facility] nRBC/100 WBC Bld Auto-Rto 0.5 /100 WBC Above high normal 5 0 - 0.1 [facility] Hgb Bld-mCnc 13.0 g/dL 5 11.7 - 15.7 [facility]CT Eosinophil/leuk NFr Bld Auto 1.2 % 5 [facility] Platelet num Bld Auto 185.0 Thou/uL 5 150 - 450 [facility] MCV RBC Auto 94.0 fL 5 80 - 100 [facility] RDW RBC Auto-Rto 21.9 % Above high normal 5 11.5 - 14.5 [facility]CT Neutrophils num Bld Auto 6.08 Thou/uL 5 2 - 7.5 [facility]CT Eosinophil num Bld Auto 0.1 Thou/uL 5 0 - 0.7 [facility] Imm Granulocytes/leuk NFr Bld Auto 0.5 % 5 [facility] Imm Granulocytes num Bld Auto 0.04 Thou/uL 5 0 - 0.1 [facility]CT RBC num Bld Auto 4.52 Mil/uL 5 4 - 5.4 [facility] BUN SerPl-mCnc 79.0 mg/dL Above high normal 02/18/20 2 5 8 - 21 [facility] GFR/BSA.pred SerPlBld [id number] 5.0 Below low normal 5 59 - [facility]CT Phosphate SerPl-mCnc 8.3 mg/dL Above high normal 5 2.7 - 4.5 [facility]CT Calcium SerPl-mCnc 9.2 mg/dL 5 8.7 - 10.5 [facility] Glucose SerPl-mCnc 194.0 mg/dL Above high normal 01/30 5 65 - 99 [facility] BUN/Creat SerPl 10.0 Ratio 5 10 - 25 [facility]CT Chloride SerPl-sCnc 96.0 mmol/L Below low normal 5 98 - 107 [facility]CT Potassium SerPl-sCnc 5.3 mmol/L 5 3.4 - 5.3 [facility]CT CO2 SerPl-sCnc 17.0 mmol/L Below low normal 5 22 - 33 [facility] Sodium SerPl-sCnc 135.0 mmol/L Below low normal 5 136 - 145 [facility] Albumin SerPl-mCnc 3.5 g/dL 5 3.5 - 5 [facility] Creat SerPl-mCnc 8.1 mg/dL Above high normal 5 0.4 - 1.1 [facility]CT Neutrophils num Bld Auto 5.45 Thou/uL 5 2 - 7.5 [facility]CT Hct VFr Bld Auto 43.3 % 5 35 - 47 [facility]CT MCHC RBC Auto-mCnc 31.2 g/dL 5 30 - 36 [facility] Hgb Bld-mCnc 13.5 g/dL 5 11.7 - 15.7 [facility]CT RBC num Bld Auto 4.69 Mil/uL 5 4 - 5.4 [facility]CT Monocytes num Bld Auto 0.31 Thou/uL 5 0.2 - 1.5 [facility]CT PMV Bld Auto 11.2 fL 5 7.5 - 12.5 [facility]CT Lymphocytes/leuk NFr Bld Auto 13.7 % 5 [facility]CT Eosinophil/leuk NFr Bld Auto 1.0 % 5 [facility]CT Eosinophil num Bld Auto 0.07 Thou/uL 5 0 - 0.7 [facility]CT Basophils/leuk NFr Bld Auto 0.3 % 5 [facility] Neutrophils/leuk NFr Bld Auto 80.1 % 5 [facility] MCH RBC Qn Auto 28.8 pg 5 27 - 31 [facility] MCV RBC Auto 92.0 fL 5 80 - 100 [facility] Imm Granulocytes/leuk NFr Bld Auto 0.3 % 5 [facility]CT WBC num Bld Auto 6.8 Thou/uL 5 4 - 11 [facility] Imm Granulocytes num Bld Auto 0.02 Thou/uL 5 0 - 0.1 [facility]CT nRBC num Bld Auto 0.08 Thou/uL Above high normal 02/17 5 0 - 0.02 [facility]CT Lymphocytes num Bld Auto 0.93 Thou/uL Below low normal 5 1.5 - 4.5 HHCCT Basophils num Bld Auto 0.02 Thou/uL 5 0 - 0.2 [facility]CT Platelet num Bld Auto 177.0 Thou/uL 5 150 - 450 [facility]CT RDW RBC Auto-Rto 22.7 % Above high normal 5 11.5 - 14.5 [facility]CT nRBC/100 WBC Bld Auto-Rto 1.2 /100 WBC Above high normal 5 0 - 0.1 [facility]CT Monocytes/leuk NFr Bld Auto 4.6 % 5 [facility] BUN/Creat SerPl 9.0 Ratio Below low normal 02/17/20 2 5 10 - 25 [facility]CT Chloride SerPl-sCnc 93.0 mmol/L Below low normal 5 98 - 107 [facility]CT GFR/BSA.pred SerPlBld [id number] 6.0 Below low normal 5 59 - [facility]HCCT BUN SerPl-mCnc 60.0 mg/dL Above high normal 02/17/20 2 5 8 - 21 [facility]CT Sodium SerPl-sCnc 136.0 mmol/L 5 136 - 145 [facility] Creat SerPl-mCnc 6.9 mg/dL Above high normal 5 0.4 - 1.1 [facility]CT Potassium SerPl-sCnc 5.1 mmol/L 5 3.4 - 5.3 [facility] CO2 SerPl-sCnc 23.0 mmol/L 5 22 - 33 [facility] Glucose SerPl-mCnc 128.0 mg/dL Above high normal 01/30 5 65 - 99 [facility] Anion Gap Bld-sCnc 20.0 Above high normal 01/30 5 7 - 17 [facility]CT Calcium SerPl-mCnc 9.5 mg/dL 5 8.7 - 10.5 [facility]CT Magnesium SerPl-mCnc 2.8 mg/dL Above high normal 5 1.6 - 2.7 H[facility]CT Eosinophil num Bld Auto 0.14 Thou/uL 5 0 - 0.7 [facility]CT Imm Granulocytes num Bld Auto 0.02 Thou/uL 5 0 - 0.1 [facility]CT Imm Granulocytes/leuk NFr Bld Auto 0.3 % 5 [facility] Platelet num Bld Auto 162.0 Thou/uL 5 150 - 450 [facility]CT Monocytes/leuk NFr Bld Auto 6.3 % 5 [facility]CT MCHC RBC Auto-mCnc 30.8 g/dL 5 30 - 36 [facility]CT Neutrophils/leuk NFr Bld Auto 76.1 % 5 [facility]CT PMV Bld Auto 11.1 fL 5 7.5 - 12.5 H[facility]CT Basophils num Bld Auto 0.02 Thou/uL 5 0 - 0.2 H[facility]CT MCH RBC Qn Auto 29.6 pg 5 27 - 31 [facility]CT nRBC/100 WBC Bld Auto-Rto 1.1 /100 WBC Above high normal 5 0 - 0.1 [facility]CT Lymphocytes/leuk NFr Bld Auto 14.9 % 5 [facility]CT RBC num Bld Auto 4.53 Mil/uL 5 4 - 5.4 [facility]CT Neutrophils num Bld Auto 5.04 Thou/uL 5 2 - 7.5 [facility]CT nRBC num Bld Auto 0.07 Thou/uL Above high normal 02/16 5 0 - 0.02 HHCCT WBC num Bld Auto 6.6 Thou/uL 5 4 - 11 [facility]CT Hgb Bld-mCnc 13.4 g/dL 5 11.7 - 15.7 HHCCT MCV RBC Auto 96.0 fL 5 80 - 100 [facility]CT Eosinophil/leuk NFr Bld Auto 2.1 % 5 [facility]CT Basophils/leuk NFr Bld Auto 0.3 % 5 [facility]CT RDW RBC Auto-Rto 22.6 % Above high normal 5 11.5 - 14.5 [facility]CT Monocytes num Bld Auto 0.42 Thou/uL 5 0.2 - 1.5 [facility]HCCT Lymphocytes num Bld Auto 0.99 Thou/uL Below low normal 5 1.5 - 4.5 HHCCT Hct VFr Bld Auto 43.5 % 5 35 - 47 [facility]CT POC Glucose 199.0 mg/dL Above high normal 5 65 - 99 [facility] POC Glucose 196.0 mg/dL Above high normal 5 65 - 99 [facility]CT Magnesium SerPl-mCnc 2.4 mg/dL 5 1.6 - 2.7 H[facility]CT Calcium SerPl-mCnc 9.3 mg/dL 5 8.7 - 10.5 [facility]CT CO2 SerPl-sCnc 24.0 mmol/L 5 22 - 33 [facility]CT Glucose SerPl-mCnc 167.0 mg/dL Above high normal 01/30 5 65 - 99 [facility]CT Sodium SerPl-sCnc 136.0 mmol/L 5 136 - 145 [facility]CT BUN SerPl-mCnc 47.0 mg/dL Above high normal 02/16/20 2 5 8 - 21 [facility]CT BUN/Creat SerPl 9.0 Ratio Below low normal 02/16/20 2 5 10 - 25 [facility]CT Chloride SerPl-sCnc 95.0 mmol/L Below low normal 5 98 - 107 [facility]CT Potassium SerPl-sCnc 4.2 mmol/L 5 3.4 - 5.3 HHCCT GFR/BSA.pred SerPlBld MHL-RPC-[id number] 8.0 Below low normal 5 59 - HHCCT Creat SerPl-mCnc 5.5 mg/dL Above high normal 5 0.4 - 1.1 [facility]CT Anion Gap Bld-sCnc 17.0 5 7 - 17 [facility]CT WBC num Bld Auto 7.4 Thou/uL 5 4 - 11 [facility]CT Imm Granulocytes num Bld Auto 0.03 Thou/uL 5 0 - 0.1 [facility]CT Imm Granulocytes/leuk NFr Bld Auto 0.4 % 5 H[facility]CT MCHC RBC Auto-mCnc 31.5 g/dL 5 30 - 36 [facility]CT MCV RBC Auto 94.0 fL 5 80 - 100 [facility]CT Lymphocytes num Bld Auto 0.78 Thou/uL Below low normal 5 1.5 - 4.5 HHCCT Basophils num Bld Auto 0.02 Thou/uL 5 0 - 0.2 HHCCT Hct VFr Bld Auto 41.9 % 5 35 - 47 HHCCT Neutrophils num Bld Auto 6.06 Thou/uL 5 2 - 7.5 HHCCT Neutrophils/leuk NFr Bld Auto 82.1 % 5 HHCCT RBC num Bld Auto 4.44 Mil/uL 5 4 - 5.4 HHCCT nRBC num Bld Auto 0.09 Thou/uL Above high normal 02/15 5 0 - 0.02 HHCCT Eosinophil/leuk NFr Bld Auto 1.4 % 5 HHCCT Monocytes/leuk NFr Bld Auto 5.2 % 5 [facility]CT Hgb Bld-mCnc 13.2 g/dL 5 11.7 - 15.7 HHCCT PMV Bld Auto 10.2 fL 5 7.5 - 12.5 HHCCT Monocytes num Bld Auto 0.38 Thou/uL 5 0.2 - 1.5 H[facility]CT Lymphocytes/leuk NFr Bld Auto 10.6 % 5 H[facility]CT Basophils/leuk NFr Bld Auto 0.3 % 5 HHCCT Eosinophil num Bld Auto 0.1 Thou/uL 5 0 - 0.7 [facility]CT Platelet num Bld Auto 180.0 Thou/uL 5 150 - 450 H[facility]CT nRBC/100 WBC Bld Auto-Rto 1.2 /100 WBC Above high normal 5 0 - 0.1 HHCCT RDW RBC Auto-Rto 22.6 % Above high normal 5 11.5 - 14.5 HHCCT MCH RBC Qn Auto 29.7 pg 5 27 - 31 HHCCT POC Glucose 107.0 mg/dL Above high normal 5 65 - 99 [facility]CT Magnesium SerPl-mCnc 2.9 mg/dL Above high normal 5 1.6 - 2.7 HHCCT BUN/Creat SerPl 10.0 Ratio 5 10 - 25 H[facility]CT GFR/BSA.pred SerPlBld IDV-HQZ-OhCYtl 6.0 Below low normal 5 59 - HHCCT Glucose SerPl-mCnc 90.0 mg/dL 5 65 - 99 [facility]CT Calcium SerPl-mCnc 10.1 mg/dL 5 8.7 - 10.5 [facility]CT Anion Gap Bld-sCnc 26.0 Above high normal 01/30 5 7 - 17 [facility]CT BUN SerPl-mCnc 78.0 mg/dL Above high normal 02/15/20 2 5 8 - 21 [facility]CT Sodium SerPl-sCnc 139.0 mmol/L 5 136 - 145 [facility]CT Chloride SerPl-sCnc 93.0 mmol/L Below low normal 5 98 - 107 [facility]CT Potassium SerPl-sCnc 5.9 mmol/L Above high normal 5 3.4 - 5.3 HHCCT CO2 SerPl-sCnc 20.0 mmol/L Below low normal 5 22 - 33 [facility]CT Creat SerPl-mCnc 7.6 mg/dL Above high normal 5 0.4 - 1.1 HHCCT RDW RBC Auto-Rto 22.5 % Above high normal 5 11.5 - 14.5 HHCCT WBC num Bld Auto 7.9 Thou/uL 5 4 - 11 [facility]CT Hgb Bld-mCnc 13.8 g/dL 5 11.7 - 15.7 HHCCT nRBC num Bld Auto 0.12 Thou/uL Above high normal 02/14 5 0 - 0.02 HHCCT Hct VFr Bld Auto 45.7 % 5 35 - 47 HHCCT PMV Bld Auto 11.4 fL 5 7.5 - 12.5 [facility]CT Platelet num Bld Auto 224.0 Thou/uL 5 150 - 450 H[facility]CT Eosinophil num Bld Auto 0.04 Thou/uL 5 0 - 0.7 HHCCT Neutrophils num Bld Auto 6.09 Thou/uL 5 2 - 7.5 HHCCT Imm Granulocytes/leuk NFr Bld Auto 0.5 % 5 HHCCT MCH RBC Qn Auto 28.6 pg 5 27 - 31 [facility]CT Monocytes/leuk NFr Bld Auto 6.0 % 5 HHCCT Basophils/leuk NFr Bld Auto 0.3 % 5 H[facility]CT MCHC RBC Auto-mCnc 30.2 g/dL 5 30 - 36 HHCCT nRBC/100 WBC Bld Auto-Rto 1.5 /100 WBC Above high normal 5 0 - 0.1 HHCCT MCV RBC Auto 95.0 fL 5 80 - 100 [facility]CT Imm Granulocytes num Bld Auto 0.04 Thou/uL 5 0 - 0.1 HHCCT RBC num Bld Auto 4.82 Mil/uL 5 4 - 5.4 HHCCT Eosinophil/leuk NFr Bld Auto 0.5 % 5 HHCCT Lymphocytes/leuk NFr Bld Auto 15.5 % 5 [facility]CT Neutrophils/leuk NFr Bld Auto 77.2 % 5 HHCCT Lymphocytes num Bld Auto 1.22 Thou/uL Below low normal 5 1.5 - 4.5 HHCCT Monocytes num Bld Auto 0.47 Thou/uL 5 0.2 - 1.5 HHCCT Basophils num Bld Auto 0.02 Thou/uL 5 0 - 0.2 HHCCT POC Glucose 132.0 mg/dL Above high normal 5 65 - 99 HHCCT Magnesium SerPl-mCnc 2.4 mg/dL 5 1.6 - 2.7 HHCCT GFR/BSA.pred SerPlBld JNO-TRU-HpHMyt 7.0 Below low normal 5 59 - HHCCT Potassium SerPl-sCnc 4.8 mmol/L 5 3.4 - 5.3 HHCCT Creat SerPl-mCnc 6.3 mg/dL Above high normal 5 0.4 - 1.1 HHCCT Calcium SerPl-mCnc 9.4 mg/dL 5 8.7 - 10.5 HHCCT Sodium SerPl-sCnc 138.0 mmol/L 5 136 - 145 H[facility]CT Anion Gap Bld-sCnc 20.0 Above high normal 01/30 5 7 - 17 HHCCT BUN SerPl-mCnc 61.0 mg/dL Above high normal 02/14/20 2 5 8 - 21 HHCCT BUN/Creat SerPl 10.0 Ratio 5 10 - 25 HHCCT Chloride SerPl-sCnc 97.0 mmol/L Below low normal 5 98 - 107 HHCCT CO2 SerPl-sCnc 21.0 mmol/L Below low normal 5 22 - 33 [facility]CT Glucose SerPl-mCnc 163.0 mg/dL Above high normal 01/30 5 65 - 99 H[facility]CT Neutrophils/leuk NFr Bld Auto 76.6 % 5 HHCCT Hgb Bld-mCnc 12.2 g/dL 5 11.7 - 15.7 HHCCT Lymphocytes/leuk NFr Bld Auto 13.6 % 5 HHCCT RBC num Bld Auto 4.23 Mil/uL 5 4 - 5.4 HHCCT Monocytes/leuk NFr Bld Auto 8.1 % 5 HHCCT Hct VFr Bld Auto 39.9 % 5 35 - 47 HHCCT WBC num Bld Auto 7.2 Thou/uL 5 4 - 11 HHCCT Imm Granulocytes num Bld Auto 0.02 Thou/uL 5 0 - 0.1 HHCCT nRBC num Bld Auto 0.14 Thou/uL Above high normal 02/13 5 0 - 0.02 HHCCT Neutrophils num Bld Auto 5.5 Thou/uL 5 2 - 7.5 HHCCT Basophils/leuk NFr Bld Auto 0.4 % 5 HHCCT Basophils num Bld Auto 0.03 Thou/uL 5 0 - 0.2 HHCCT Monocytes num Bld Auto 0.58 Thou/uL 5 0.2 - 1.5 HHCCT MCHC RBC Auto-mCnc 30.6 g/dL 5 30 - 36 HHCCT Eosinophil/leuk NFr Bld Auto 1.0 % 5 HHCCT nRBC/100 WBC Bld Auto-Rto 1.9 /100 WBC Above high normal 5 0 - 0.1 HHCCT PMV Bld Auto 10.6 fL 5 7.5 - 12.5 HHCCT Eosinophil num Bld Auto 0.07 Thou/uL 5 0 - 0.7 HHCCT Lymphocytes num Bld Auto 0.98 Thou/uL Below low normal 5 1.5 - 4.5 HHCCT MCH RBC Qn Auto 28.8 pg 5 27 - 31 HHCCT Imm Granulocytes/leuk NFr Bld Auto 0.3 % 5 HHCCT RDW RBC Auto-Rto 22.0 % Above high normal 5 11.5 - 14.5 [facility]CT Platelet num Bld Auto 200.0 Thou/uL 5 150 - 450 HHCCT MCV RBC Auto 94.0 fL 5 80 - 100 HHCCT Troponin T SerPl-mCnc 68.0 ng/L Critically high 5 - 15 HHCCT Delta 2.0 5 - 3 HHCCT HBV surface Ag Ser Ql Nonreactive 5 - HHCCT Troponin T SerPl-mCnc 69.0 ng/L Critically high 5 - 15 HHCCT Delta 3.0 Above high normal 5 - 3 HHCCT Troponin T SerPl-mCnc 67.0 ng/L Critically high 5 - 15 HHCCT Delta 1.0 5 - 3 HHCCT Magnesium SerPl-mCnc 3.0 mg/dL Above high normal 5 1.6 - 2.7 HHCCT Potassium SerPl-sCnc 5.5 mmol/L Above high normal 5 3.4 - 5.3 HHCCT Glucose SerPl-mCnc 115.0 mg/dL Above high normal 01/30 5 65 - 99 HHCCT Calcium SerPl-mCnc 10.2 mg/dL 5 8.7 - 10.5 HHCCT GFR/BSA.pred SerPlBld [id number]-[id number] 5.0 Below low normal 5 59 - HHCCT Sodium SerPl-sCnc 138.0 mmol/L 5 136 - 145 HHCCT BUN SerPl-mCnc 87.0 mg/dL Above high normal 02/13/20 2 5 8 - 21 HHCCT Chloride SerPl-sCnc 95.0 mmol/L Below low normal 5 98 - 107 HHCCT CO2 SerPl-sCnc 21.0 mmol/L Below low normal 5 22 - 33 HHCCT BUN/Creat SerPl 10.0 Ratio 5 10 - 25 HHCCT Creat SerPl-mCnc 8.4 mg/dL Above high normal 5 0.4 - 1.1 HHCCT Anion Gap Bld-sCnc 22.0 Above high normal 01/30 5 7 - 17 HHCCT RDW RBC Auto-Rto 22.0 % Above high normal 5 11.5 - 14.5 HHCCT nRBC num Bld Auto 0.12 Thou/uL Above high normal 02/12 5 0 - 0.02 HHCCT RBC num Bld Auto 4.38 Mil/uL 5 4 - 5.4 HHCCT MCV RBC Auto 93.0 fL 5 80 - 100 [facility]CT Platelet num Bld Auto 224.0 Thou/uL 5 150 - 450 HHCCT MCHC RBC Auto-mCnc 30.6 g/dL 5 30 - 36 HHCCT PMV Bld Auto 10.7 fL 5 7.5 - 12.5 HHCCT nRBC/100 WBC Bld Auto-Rto 1.5 /100 WBC Above high normal 5 0 - 0.1 HHCCT Hct VFr Bld Auto 40.9 % 5 35 - 47 HHCCT MCH RBC Qn Auto 28.5 pg 5 27 - 31 HHCCT Hgb Bld-mCnc 12.5 g/dL 5 11.7 - 15.7 HHCCT WBC num Bld Auto 8.1 Thou/uL 5 4 - 11 HHCCT Delta NO PREVIOUS RESULT 5 - 3 HHCCT Troponin T SerPl-mCnc 66.0 ng/L Critically high 5 - 15 HHCCT Magnesium SerPl-mCnc 2.7 mg/dL 5 1.6 - 2.7 HHCCT GFR/BSA.pred SerPlBld [id number]-[id number] 6.0 Below low normal 5 59 - HHCCT Sodium SerPl-sCnc 140.0 mmol/L 5 136 - 145 HHCCT Calcium SerPl-mCnc 10.3 mg/dL 5 8.7 - 10.5 HHCCT Potassium SerPl-sCnc 4.7 mmol/L 5 3.4 - 5.3 HHCCT BUN/Creat SerPl 10.0 Ratio 5 10 - 25 HHCCT Creat SerPl-mCnc 7.6 mg/dL Above high normal 5 0.4 - 1.1 HHCCT Anion Gap Bld-sCnc 21.0 Above high normal 01/30 5 7 - 17 HHCCT Chloride SerPl-sCnc 96.0 mmol/L Below low normal 5 98 - 107 HHCCT Glucose SerPl-mCnc 96.0 mg/dL 5 65 - 99 HHCCT BUN SerPl-mCnc 74.0 mg/dL Above high normal 02/13/20 2 5 8 - 21 HHCCT CO2 SerPl-sCnc 23.0 mmol/L 5 22 - 33 HHCCT Imm Granulocytes/leuk NFr Bld Auto 0.7 % 5 HHCCT Basophils num Bld Auto 0.04 Thou/uL 5 0 - 0.2 HHCCT Basophils/leuk NFr Bld Auto 0.5 % 5 HHCCT WBC num Bld Auto 8.6 Thou/uL 5 4 - 11 HHCCT MCH RBC Qn Auto 27.6 pg 5 27 - 31 HHCCT Hgb Bld-mCnc 12.2 g/dL 5 11.7 - 15.7 HHCCT Lymphocytes num Bld Auto 1.32 Thou/uL Below low normal 5 1.5 - 4.5 HHCCT Neutrophils/leuk NFr Bld Auto 73.5 % 5 HHCCT Monocytes num Bld Auto 0.76 Thou/uL 5 0.2 - 1.5 HHCCT Lymphocytes/leuk NFr Bld Auto 15.3 % 5 HHCCT Imm Granulocytes num Bld Auto 0.06 Thou/uL 5 0 - 0.1 HHCCT nRBC num Bld Auto 0.12 Thou/uL Above high normal 02/12 5 0 - 0.02 HHCCT RBC num Bld Auto 4.42 Mil/uL 5 4 - 5.4 HHCCT Platelet num Bld Auto 233.0 Thou/uL 5 150 - 450 HHCCT MCV RBC Auto 93.0 fL 5 80 - 100 HHCCT PMV Bld Auto 11.1 fL 5 7.5 - 12.5 HHCCT Eosinophil num Bld Auto 0.1 Thou/uL 5 0 - 0.7 HHCCT RDW RBC Auto-Rto 21.9 % Above high normal 5 11.5 - 14.5 HHCCT Neutrophils num Bld Auto 6.36 Thou/uL 5 2 - 7.5 HHCCT nRBC/100 WBC Bld Auto-Rto 1.4 /100 WBC Above high normal 5 0 - 0.1 HHCCT Hct VFr Bld Auto 41.3 % 5 35 - 47 HHCCT Monocytes/leuk NFr Bld Auto 8.8 % 5 HHCCT MCHC RBC Auto-mCnc 29.5 g/dL Below low normal 02/12 5 30 - 36 HHCCT Eosinophil/leuk NFr Bld Auto 1.2 % 5 HHCCT MCH RBC Qn Auto 28.6 pg 5 27 - 31 HHCCT WBC num Bld Auto 8.0 Thou/uL 5 4 - 11 HHCCT RBC num Bld Auto 4.12 Mil/uL 5 4 - 5.4 HHCCT RDW RBC Auto-Rto 19.9 % Above high normal 5 11.5 - 14.5 HHCCT Platelet num Bld Auto 273.0 Thou/uL 5 150 - 450 HHCCT nRBC/100 WBC Bld Auto-Rto 0.6 /100 WBC Above high normal 5 0 - 0.1 HHCCT Hgb Bld-mCnc 11.8 g/dL 5 11.7 - 15.7 HHCCT MCHC RBC Auto-mCnc 31.6 g/dL 5 30 - 36 HHCCT Hct VFr Bld Auto 37.3 % 5 35 - 47 HHCCT PMV Bld Auto 10.8 fL 5 7.5 - 12.5 HHCCT MCV RBC Auto 91.0 fL 5 80 - 100 HHCCT nRBC num Bld Auto 0.05 Thou/uL Above high normal 02/03 5 0 - 0.02 HHCCT BUN p dialysis SerPl-mCnc 18.0 mg/dL 5 8 - 21 HHCCT Urea reduction ratio SerPl 74.0 % 5 64 - HHCCT Kt/V Effective 1.69 5 1.3 - HHCCT Phosphate SerPl-mCnc 7.5 mg/dL Above high normal 5 2.7 - 4.5 HHCCT Potassium SerPl-sCnc 5.4 mmol/L Above high normal 5 3.4 - 5.3 HHCCT Calcium SerPl-mCnc 9.6 mg/dL 5 8.7 - 10.5 HHCCT AST SerPl-cCnc 21.0 U/L 5 10 - 50 HHCCT Calcium, Corrected 10.0 mg/dL 5 8.7 - 10.5 HHCCT GFR/BSA.pred SerPlBld [id number] 6.0 Below low normal 5 59 - HHCCT Calcium*Phosphorus 72.0 5 HHCCT Chloride SerPl-sCnc 90.0 mmol/L Below low normal 5 98 - 107 HHCCT Creat SerPl-mCnc 7.5 mg/dL Above high normal 5 0.4 - 1.1 HHCCT Sodium SerPl-sCnc 135.0 mmol/L Below low normal 5 136 - 145 HHCCT Albumin SerPl-mCnc 3.5 g/dL 5 3.5 - 5 HHCCT ALP SerPl-cCnc 60.0 U/L 5 32 - 122 HHCCT CO2 SerPl-sCnc 23.0 mmol/L 5 22 - 33 HHCCT BUN SerPl-mCnc 69.0 mg/dL Above high normal 02/04/20 2 5 8 - 21 HHCCT Potassium SerPl-sCnc 5.5 mmol/L Above high normal 5 3.4 - 5.3 HHCCT Haptoglob SerPl-mCnc 122.0 mg/dL 5 30 - 200 HHCCT CK SerPl-cCnc 93.0 U/L 5 24 - 173 HHCCT Phosphate SerPl-mCnc 6.4 mg/dL Above high normal 5 2.7 - 4.5 HHCCT Creat SerPl-mCnc 6.1 mg/dL Above high normal 5 0.4 - 1.1 HHCCT BUN SerPl-mCnc 52.0 mg/dL Above high normal 02/03/20 2 5 8 - 21 HHCCT BUN/Creat SerPl 9.0 Ratio Below low normal 02/03/20 2 5 10 - 25 HHCCT Albumin SerPl-mCnc 3.7 g/dL 5 3.5 - 5 HHCCT Sodium SerPl-sCnc 136.0 mmol/L 5 136 - 145 HHCCT Calcium SerPl-mCnc 9.6 mg/dL 5 8.7 - 10.5 HHCCT Potassium SerPl-sCnc 6.1 mmol/L Critically high 5 3.4 - 5.3 HHCCT CO2 SerPl-sCnc 23.0 mmol/L 5 22 - 33 HHCCT Glucose SerPl-mCnc 128.0 mg/dL Above high normal 08/ 5 65 - 99 HHCCT GFR/BSA.pred SerPlBld [id number] 7.0 Below low normal 5 59 - HHCCT Chloride SerPl-sCnc 94.0 mmol/L Below low normal 5 98 - 107 HHCCT RBC num Bld Auto 4.31 Mil/uL 5 4 - 5.4 HHCCT MCH RBC Qn Auto 28.8 pg 5 27 - 31 HHCCT nRBC/100 WBC Bld Auto-Rto 0.2 /100 WBC Above high normal 5 0 - 0.1 HHCCT PMV Bld Auto 10.4 fL 5 7.5 - 12.5 HHCCT RDW RBC Auto-Rto 19.5 % Above high normal 5 11.5 - 14.5 HHCCT MCV RBC Auto 94.0 fL 5 80 - 100 HHCCT MCHC RBC Auto-mCnc 30.8 g/dL 5 30 - 36 HHCCT nRBC num Bld Auto 0.02 Thou/uL 5 0 - 0.02 HHCCT Hgb Bld-mCnc 12.4 g/dL 5 11.7 - 15.7 HHCCT Platelet num Bld Auto 273.0 Thou/uL 5 150 - 450 HHCCT WBC num Bld Auto 8.2 Thou/uL 5 4 - 11 HHCCT Hct VFr Bld Auto 40.3 % 5 35 - 47 HHCCT Potassium SerPl-sCnc 5.7 mmol/L Above high normal 5 3.4 - 5.3 HHCCT CO2 SerPl-sCnc 21.0 mmol/L Below low normal 5 22 - 33 HHCCT BUN/Creat SerPl 8.0 Ratio Below low normal 02/01/20 2 5 10 - 25 [facility] Sodium SerPl-sCnc 137.0 mmol/L 5 136 - 145 [facility] Calcium SerPl-mCnc 9.9 mg/dL 5 8.7 - 10.5 [facility] BUN SerPl-mCnc 54.0 mg/dL Above high normal 02/01/20 2 5 8 - 21 [facility] GFR/BSA.pred SerPlBld [id number] 7.0 Below low normal 5 59 - [facility] Anion Gap Bld-sCnc 21.0 Above high normal 08 5 7 - 17 [facility] Creat SerPl-mCnc 6.7 mg/dL Above high normal 5 0.4 - 1.1 [facility] Glucose SerPl-mCnc 77.0 mg/dL 5 65 - 99 [facility] Chloride SerPl-sCnc 95.0 mmol/L Below low normal 5 98 - 107 [facility] Magnesium SerPl-mCnc 2.0 mg/dL 5 1.6 - 2.7 [facility] PMV Bld Auto 10.5 fL 5 7.5 - 12.5 [facility] Hct VFr Bld Auto 38.1 % 5 35 - 47 [facility] Hgb Bld-mCnc 11.3 g/dL Below low normal 5 11.7 - 15.7 [facility] Lymphocytes/leuk NFr Bld Auto 20.2 % 5 [facility] Basophils num Bld Auto 0.05 Thou/uL 5 0 - 0.2 [facility] Neutrophils num Bld Auto 5.81 Thou/uL 5 2 - 7.5 [facility] Monocytes num Bld Auto 0.98 Thou/uL 5 0.2 - 1.5 [facility] Platelet num Bld Auto 269.0 Thou/uL 5 150 - 450 [facility] MCH RBC Qn Auto 28.1 pg 5 27 - 31 [facility] MCV RBC Auto 95.0 fL 5 80 - 100 [facility] WBC num Bld Auto 8.7 Thou/uL 5 4 - 11 [facility] Eosinophil/leuk NFr Bld Auto 0.9 % 5 [facility] MCHC RBC Auto-mCnc 29.7 g/dL Below low normal 01/31 5 30 - 36 [facility] RBC num Bld Auto 4.02 Mil/uL 5 4 - 5.4 [facility] Monocytes/leuk NFr Bld Auto 11.2 % 5 [facility] Imm Granulocytes num Bld Auto 0.04 Thou/uL 5 0 - 0.1 [facility] RDW RBC Auto-Rto 20.1 % Above high normal 5 11.5 - 14.5 [facility] Lymphocytes num Bld Auto 1.76 Thou/uL 5 1.5 - 4.5 [facility] Neutrophils/leuk NFr Bld Auto 66.6 % 5 [facility] Basophils/leuk NFr Bld Auto 0.6 % 5 [facility] Imm Granulocytes/leuk NFr Bld Auto 0.5 % 5 [facility] Eosinophil num Bld Auto 0.08 Thou/uL 5 0 - 0.7 [facility] Troponin T SerPl-mCnc 72.0 ng/L Critically high 5 - 15 [facility] Delta 2.0 5 - 3 [facility] pro BNP, N-terminal >09348.0 pg/mL Above high normal 5 - 125 [facility] Troponin T SerPl-mCnc 70.0 ng/L Critically high 5 - 15 [facility] Delta NO PREVIOUS RESULT 5 - 3 [facility] AST SerPl-cCnc 29.0 U/L 5 10 - 50 [facility] Chloride SerPl-sCnc 95.0 mmol/L Below low normal 5 98 - 107 [facility] Prot SerPl-mCnc 7.3 g/dL 5 6.3 - 8.3 [facility] ALT SerPl-cCnc 11.0 U/L 5 10 - 50 [facility] Calcium SerPl-mCnc 10.2 mg/dL 5 8.7 - 10.5 [facility] GFR/BSA.pred SerPlBld [id number] 8.0 Below low normal 5 59 - [facility] Albumin SerPl-mCnc 4.0 g/dL 5 3.5 - 5 [facility] CO2 SerPl-sCnc 27.0 mmol/L 5 22 - 33 [facility] Albumin/Glob SerPl 1.2 Ratio 5 1 - 3 [facility] Potassium SerPl-sCnc 5.3 mmol/L 5 3.4 - 5.3 [facility] Sodium SerPl-sCnc 139.0 mmol/L 5 136 - 145 [facility] Globulin Ser Calc-mCnc 3.3 g/dL 5 1.5 - 3.9 [facility] Glucose SerPl-mCnc 100.0 mg/dL Above high normal 5 65 - 99 [facility] BUN SerPl-mCnc 50.0 mg/dL Above high normal 02/01/20 2 5 8 - 21 [facility] ALP SerPl-cCnc 75.0 U/L 5 32 - 122 [facility] BUN/Creat SerPl 8.0 Ratio Below low normal 02/01/20 2 5 10 - 25 [facility] Creat SerPl-mCnc 6.0 mg/dL Above high normal 5 0.4 - 1.1 [facility] Bilirub SerPl-mCnc 1.3 mg/dL Above high normal 5 0.2 - 1 [facility] Anion Gap Bld-sCnc 17.0 5 7 - 17 [facility] Lactate SerPl-sCnc 1.5 mmol/L 5 0.5 - 1.9 [facility] MCH RBC Qn Auto 28.6 pg 5 27 - 31 [facility] Lymphocytes num Bld Auto 1.5 Thou/uL 5 1.5 - 4.5 [facility] MCV RBC Auto 97.0 fL 5 80 - 100 [facility] Imm Granulocytes/leuk NFr Bld Auto 0.6 % 5 [facility] Basophils num Bld Auto 0.04 Thou/uL 5 0 - 0.2 [facility] Basophils/leuk NFr Bld Auto 0.4 % 5 [facility] RBC num Bld Auto 4.2 Mil/uL 5 4 - 5.4 [facility] Hgb Bld-mCnc 12.0 g/dL 5 11.7 - 15.7 [facility] Monocytes num Bld Auto 0.84 Thou/uL 5 0.2 - 1.5 [facility] Eosinophil num Bld Auto 0.17 Thou/uL 5 0 - 0.7 [facility] Hct VFr Bld Auto 40.8 % 5 35 - 47 [facility] Neutrophils/leuk NFr Bld Auto 71.3 % 5 [facility] Eosinophil/leuk NFr Bld Auto 1.9 % 5 [facility] Lymphocytes/leuk NFr Bld Auto 16.5 % 5 [facility] RDW RBC Auto-Rto 20.1 % Above high normal 5 11.5 - 14.5 [facility] Platelet num Bld Auto 244.0 Thou/uL 5 150 - 450 [facility] Imm Granulocytes num Bld Auto 0.05 Thou/uL 5 0 - 0.1 [facility] WBC num Bld Auto 9.1 Thou/uL 5 4 - 11 [facility] Neutrophils num Bld Auto 6.47 Thou/uL 5 2 - 7.5 [facility] PMV Bld Auto 10.7 fL 5 7.5 - 12.5 [facility] Monocytes/leuk NFr Bld Auto 9.3 % 5 [facility] MCHC RBC Auto-mCnc 29.4 g/dL Below low normal 01/31 5 30 - 36 [facility] POC Glucose 123.0 mg/dL Above high normal 5 65 - 99 [facility] POC Glucose 82.0 mg/dL 5 65 - 99 [facility] POC Glucose 63.0 mg/dL Below low normal 5 65 - 99 [facility] POC Glucose 164.0 mg/dL Above high normal 5 65 - 99 [facility] POC Glucose 203.0 mg/dL Above high normal 5 65 - 99 [facility] POC Glucose 95.0 mg/dL 5 65 - 99 [facility] Lactate SerPl-sCnc 1.5 mmol/L 5 0.5 - 1.9 [facility] Lactate SerPl-sCnc 1.4 mmol/L 5 0.5 - 1.9 [facility] Phosphate SerPl-mCnc 5.2 mg/dL Above high normal 5 2.7 - 4.5 [facility] Lipase SerPl-cCnc 41.0 U/L 5 13 - 60 [facility] BUN SerPl-mCnc 81.0 mg/dL Above high normal 01/27/20 2 5 8 - 21 [facility] Prot SerPl-mCnc 6.6 g/dL 5 6.3 - 8.3 [facility] Sodium SerPl-sCnc 139.0 mmol/L 5 136 - 145 [facility] CO2 SerPl-sCnc 21.0 mmol/L Below low normal 5 22 - 33 [facility] ALP SerPl-cCnc 67.0 U/L 5 32 - 122 [facility] Anion Gap Bld-sCnc 20.0 Above high normal 12/31 5 7 - 17 [facility] Glucose SerPl-mCnc 84.0 mg/dL 5 65 - 99 [facility]CT Bilirub SerPl-mCnc 1.1 mg/dL Above high normal 12/31 5 0.2 - 1 [facility] BUN/Creat SerPl 8.0 Ratio Below low normal 01/27/20 2 5 10 - 25 [facility] ALT SerPl-cCnc 6.0 U/L Below low normal 5 10 - 50 [facility] Chloride SerPl-sCnc 98.0 mmol/L 5 98 - 107 [facility] AST SerPl-cCnc 25.0 U/L 5 10 - 50 [facility] Calcium SerPl-mCnc 9.9 mg/dL 5 8.7 - 10.5 [facility] Albumin SerPl-mCnc 3.6 g/dL 5 3.5 - 5 [facility] GFR/BSA.pred SerPlBld [id number] 4.0 Below low normal 5 59 - [facility]CT Potassium SerPl-sCnc 6.4 mmol/L Critically high 5 3.4 - 5.3 [facility] Creat SerPl-mCnc 10.0 mg/dL Above high normal 5 0.4 - 1.1 [facility] Globulin Ser Calc-mCnc 3.0 g/dL 5 1.5 - 3.9 [facility]CT Albumin/Glob SerPl 1.2 Ratio 5 1 - 3 [facility] Magnesium SerPl-mCnc 2.7 mg/dL 5 1.6 - 2.7 [facility] RBC num Bld Auto 4.11 Mil/uL 5 4 - 5.4 [facility] MCV RBC Auto 95.0 fL 5 80 - 100 [facility] PMV Bld Auto 10.9 fL 5 7.5 - 12.5 [facility] Lymphocytes/leuk NFr Bld Auto 21.5 % 5 [facility] Basophils/leuk NFr Bld Auto 0.6 % 5 [facility] RDW RBC Auto-Rto 20.9 % Above high normal 5 11.5 - 14.5 [facility] Imm Granulocytes num Bld Auto 0.02 Thou/uL 5 0 - 0.1 [facility] Lymphocytes num Bld Auto 1.76 Thou/uL 5 1.5 - 4.5 [facility] Hct VFr Bld Auto 39.2 % 5 35 - 47 [facility] Neutrophils/leuk NFr Bld Auto 67.1 % 5 [facility] MCHC RBC Auto-mCnc 30.1 g/dL 5 30 - 36 [facility] Monocytes/leuk NFr Bld Auto 8.4 % 5 [facility] MCH RBC Qn Auto 28.7 pg 5 27 - 31 [facility] Basophils num Bld Auto 0.05 Thou/uL 5 0 - 0.2 [facility] Hgb Bld-mCnc 11.8 g/dL 5 11.7 - 15.7 [facility] WBC num Bld Auto 8.2 Thou/uL 5 4 - 11 [facility] Monocytes num Bld Auto 0.69 Thou/uL 5 0.2 - 1.5 [facility] Neutrophils num Bld Auto 5.47 Thou/uL 5 2 - 7.5 [facility] Platelet num Bld Auto 176.0 Thou/uL 5 150 - 450 [facility] Eosinophil/leuk NFr Bld Auto 2.2 % 5 [facility] Imm Granulocytes/leuk NFr Bld Auto 0.2 % 5 [facility] Eosinophil num Bld Auto 0.18 Thou/uL 5 0 - 0.7 [facility] POC Glucose 100.0 mg/dL Above high normal 5 65 - 99 [facility] ALT SerPl-cCnc <5.0 U/L Below low normal 5 10 - 50 [facility] Albumin/Glob SerPl 1.4 Ratio 5 1 - 3 [facility] GFR/BSA.pred SerPlBld [id number] 6.0 Below low normal 5 59 - [facility] Glucose SerPl-mCnc 163.0 mg/dL Above high normal 12/31 5 65 - 99 [facility] CO2 SerPl-sCnc 24.0 mmol/L 5 22 - 33 [facility] Sodium SerPl-sCnc 141.0 mmol/L 5 136 - 145 [facility] Albumin SerPl-mCnc 3.6 g/dL 5 3.5 - 5 [facility] Creat SerPl-mCnc 7.7 mg/dL Above high normal 5 0.4 - 1.1 [facility] Potassium SerPl-sCnc 4.7 mmol/L 5 3.4 - 5.3 [facility] Chloride SerPl-sCnc 99.0 mmol/L 5 98 - 107 [facility]CT Bilirub SerPl-mCnc 0.7 mg/dL 5 0.2 - 1 [facility] Globulin Ser Calc-mCnc 2.5 g/dL 5 1.5 - 3.9 [facility] ALP SerPl-cCnc 62.0 U/L 5 32 - 122 [facility] Anion Gap Bld-sCnc 18.0 Above high normal 12/31 5 7 - 17 [facility] AST SerPl-cCnc 22.0 U/L 5 10 - 50 [facility] Calcium SerPl-mCnc 9.5 mg/dL 5 8.7 - 10.5 [facility] BUN SerPl-mCnc 55.0 mg/dL Above high normal 01/25/20 2 5 8 - 21 [facility] Prot SerPl-mCnc 6.1 g/dL Below low normal 01/25/20 2 5 6.3 - 8.3 [facility] BUN/Creat SerPl 7.0 Ratio Below low normal 01/25/20 2 5 10 - 25 [facility] Phosphate SerPl-mCnc 3.6 mg/dL 5 2.7 - 4.5 [facility] Magnesium SerPl-mCnc 2.5 mg/dL 5 1.6 - 2.7 [facility] MCV RBC Auto 96.0 fL 5 80 - 100 [facility] RBC num Bld Auto 3.86 Mil/uL Below low normal 02 5 4 - 5.4 [facility] Neutrophils/leuk NFr Bld Auto 79.5 % 5 [facility] RDW RBC Auto-Rto 20.5 % Above high normal 5 11.5 - 14.5 [facility] Platelet num Bld Auto 159.0 Thou/uL 5 150 - 450 [facility] Neutrophils num Bld Auto 5.98 Thou/uL 5 2 - 7.5 [facility] Eosinophil/leuk NFr Bld Auto 2.1 % 5 [facility] Basophils/leuk NFr Bld Auto 0.3 % 5 [facility] WBC num Bld Auto 7.5 Thou/uL 5 4 - 11 [facility] Hgb Bld-mCnc 11.0 g/dL Below low normal 5 11.7 - 15.7 [facility] Lymphocytes/leuk NFr Bld Auto 10.9 % 5 [facility] Monocytes/leuk NFr Bld Auto 6.9 % 5 [facility] MCHC RBC Auto-mCnc 29.6 g/dL Below low normal 01/24 5 30 - 36 [facility] PMV Bld Auto 10.8 fL 5 7.5 - 12.5 [facility]CT Basophils num Bld Auto 0.02 Thou/uL 5 0 - 0.2 [facility] Imm Granulocytes num Bld Auto 0.02 Thou/uL 5 0 - 0.1 [facility]CT Monocytes num Bld Auto 0.52 Thou/uL 5 0.2 - 1.5 [facility] Imm Granulocytes/leuk NFr Bld Auto 0.3 % 5 [facility] MCH RBC Qn Auto 28.5 pg 5 27 - 31 [facility] Hct VFr Bld Auto 37.1 % 5 35 - 47 [facility]CT Lymphocytes num Bld Auto 0.82 Thou/uL Below low normal 5 1.5 - 4.5 [facility]CT Eosinophil num Bld Auto 0.16 Thou/uL 5 0 - 0.7 [facility] Calcium SerPl-mCnc 8.9 mg/dL 5 8.7 - 10.5 [facility]CT Potassium SerPl-sCnc 3.8 mmol/L 5 3.4 - 5.3 [facility]CT Chloride SerPl-sCnc 100.0 mmol/L 5 98 - 107 [facility] Glucose SerPl-mCnc 89.0 mg/dL 5 65 - 99 [facility] Creat SerPl-mCnc 4.2 mg/dL Above high normal 5 0.4 - 1.1 [facility] GFR/BSA.pred SerPlBld [id number] 12.0 Below low normal 5 59 - [facility]CT BUN SerPl-mCnc 21.0 mg/dL 5 8 - 21 [facility] Anion Gap Bld-sCnc 15.0 5 7 - 17 [facility] BUN/Creat SerPl 5.0 Ratio Below low normal 01/23/20 2 5 10 - 25 [facility] CO2 SerPl-sCnc 30.0 mmol/L 5 22 - 33 [facility] Sodium SerPl-sCnc 145.0 mmol/L 5 136 - 145 [facility] BUN SerPl-mCnc 63.0 mg/dL Above high normal 01/23/20 2 5 8 - 21 [facility] Potassium SerPl-sCnc 5.3 mmol/L 5 3.4 - 5.3 [facility]CT Glucose SerPl-mCnc 122.0 mg/dL Above high normal 12/31 5 65 - 99 [facility] Sodium SerPl-sCnc 138.0 mmol/L 5 136 - 145 [facility]CT Calcium SerPl-mCnc 8.7 mg/dL 5 8.7 - 10.5 [facility]CT GFR/BSA.pred SerPlBld [id number] 5.0 Below low normal 5 59 - [facility]CT Chloride SerPl-sCnc 96.0 mmol/L Below low normal 5 98 - 107 [facility] CO2 SerPl-sCnc 23.0 mmol/L 5 22 - 33 [facility] BUN/Creat SerPl 8.0 Ratio Below low normal 01/23/20 2 5 10 - 25 [facility] Phosphate SerPl-mCnc 7.3 mg/dL Above high normal 5 2.7 - 4.5 [facility]CT Albumin SerPl-mCnc 3.3 g/dL Below low normal 01/22 5 3.5 - 5 [facility] Creat SerPl-mCnc 8.1 mg/dL Above high normal 5 0.4 - 1.1 [facility] MCV RBC Auto 94.0 fL 5 80 - 100 [facility] MCH RBC Qn Auto 28.6 pg 5 27 - 31 [facility] WBC num Bld Auto 6.7 Thou/uL 5 4 - 11 [facility]CT PMV Bld Auto 11.2 fL 5 7.5 - 12.5 [facility] RBC num Bld Auto 4.09 Mil/uL 5 4 - 5.4 [facility]CT MCHC RBC Auto-mCnc 30.3 g/dL 5 30 - 36 [facility] Platelet num Bld Auto 200.0 Thou/uL 5 150 - 450 [facility] Hct VFr Bld Auto 38.6 % 5 35 - 47 [facility] RDW RBC Auto-Rto 20.3 % Above high normal 5 11.5 - 14.5 [facility]CT Hgb Bld-mCnc 11.7 g/dL 5 11.7 - 15.7 [facility]CT Lactate SerPl-sCnc 2.0 mmol/L Above high normal 12/31 5 0.5 - 1.9 [facility] ISTAT Hemoglobin 13.6 gm/dL 5 11.7 - 15.7 [facility] ISTAT Glucose 110.0 mg/dL Above high normal 5 65 - 99 [facility] ISTAT Hematocrit 40.0 % 5 35 - 47 [facility]CT ISTAT Potassium 4.4 mmol/L 5 3.4 - 5.3 [facility]CT BUN/Creat SerPl 7.0 Ratio Below low normal 01/22/20 2 5 10 - 25 [facility] GFR/BSA.pred SerPlBld [id number] 6.0 Below low normal 5 59 - [facility]CT Glucose SerPl-mCnc 106.0 mg/dL Above high normal 12/31 5 65 - 99 [facility] Anion Gap Bld-sCnc 17.0 5 7 - 17 [facility] Sodium SerPl-sCnc 142.0 mmol/L 5 136 - 145 [facility] CO2 SerPl-sCnc 28.0 mmol/L 5 22 - 33 [facility] Creat SerPl-mCnc 7.0 mg/dL Above high normal 5 0.4 - 1.1 [facility]CT Chloride SerPl-sCnc 97.0 mmol/L Below low normal 5 98 - 107 [facility]CT Potassium SerPl-sCnc 4.9 mmol/L 5 3.4 - 5.3 [facility]CT Calcium SerPl-mCnc 9.4 mg/dL 5 8.7 - 10.5 [facility]CT BUN SerPl-mCnc 47.0 mg/dL Above high normal 01/22/20 2 5 8 - 21 [facility]CT Prothrombin time 31.4 seconds Above high normal 5 10 - 13.5 [facility]CT INR PPP 2.7 5 [facility]HCCT Anticoagulant OTHER AGENT OR UNKNOWN 5 HHCCT Hct VFr Bld Auto 40.4 % 5 35 - 47 [facility] RDW RBC Auto-Rto 20.2 % Above high normal 5 11.5 - 14.5 [facility]CT Hgb Bld-mCnc 12.0 g/dL 5 11.7 - 15.7 [facility]CT MCH RBC Qn Auto 28.2 pg 5 27 - 31 [facility]CT PMV Bld Auto 11.3 fL 5 7.5 - 12.5 [facility]CT Platelet num Bld Auto 220.0 Thou/uL 5 150 - 450 [facility]CT MCHC RBC Auto-mCnc 29.7 g/dL Below low normal 01/21 5 30 - 36 [facility]CT WBC num Bld Auto 6.4 Thou/uL 5 4 - 11 [facility] RBC num Bld Auto 4.26 Mil/uL 5 4 - 5.4 [facility]CT MCV RBC Auto 95.0 fL 5 80 - 100 [facility]CT Potassium SerPl-sCnc 4.5 mmol/L 5 3.4 - 5.3 [facility]CT Lactate SerPl-sCnc 2.0 mmol/L Above high normal 12/31 5 0.5 - 1.9 [facility]CT Magnesium SerPl-mCnc 2.2 mg/dL 5 1.6 - 2.7 [facility] POC Glucose 88.0 mg/dL 5 65 - 99 [facility] POC Glucose 68.0 mg/dL 5 65 - 99 [facility] POC Glucose 88.0 mg/dL 5 65 - 99 [facility]CT BUN/Creat SerPl 10.0 Ratio 5 10 - 25 [facility]CT Albumin SerPl-mCnc 3.7 g/dL 5 3.5 - 5 [facility]CT CO2 SerPl-sCnc 20.0 mmol/L Below low normal 5 22 - 33 [facility]CT Potassium SerPl-sCnc 6.0 mmol/L Above high normal 5 3.4 - 5.3 [facility]CT Glucose SerPl-mCnc 85.0 mg/dL 5 65 - 99 [facility]CT BUN SerPl-mCnc 97.0 mg/dL Above high normal 01/21/20 2 5 8 - 21 [facility]CT Chloride SerPl-sCnc 100.0 mmol/L 5 98 - 107 [facility]CT Creat SerPl-mCnc 10.1 mg/dL Above high normal 5 0.4 - 1.1 [facility]CT Sodium SerPl-sCnc 146.0 mmol/L Above high normal 01/20 5 136 - 145 [facility]CT Calcium SerPl-mCnc 10.6 mg/dL Above high normal 12/31 5 8.7 - 10.5 [facility]CT Phosphate SerPl-mCnc 5.3 mg/dL Above high normal 5 2.7 - 4.5 [facility]CT GFR/BSA.pred SerPlBld [id number] 4.0 Below low normal 5 59 - HHCCT WBC num Bld Auto 7.6 Thou/uL 5 4 - 11 [facility]CT nRBC/100 WBC Bld Auto-Rto 0.3 /100 WBC Above high normal 5 0 - 0.1 [facility]CT Hgb Bld-mCnc 12.0 g/dL 5 11.7 - 15.7 [facility]CT RBC num Bld Auto 4.29 Mil/uL 5 4 - 5.4 [facility]CT MCHC RBC Auto-mCnc 29.8 g/dL Below low normal 01/20 5 30 - 36 [facility] Platelet num Bld Auto 227.0 Thou/uL 5 150 - 450 [facility]CT Hct VFr Bld Auto 40.3 % 5 35 - 47 [facility]CT PMV Bld Auto 11.4 fL 5 7.5 - 12.5 [facility]CT nRBC num Bld Auto 0.02 Thou/uL 5 0 - 0.02 H[facility]CT MCH RBC Qn Auto 28.0 pg 5 27 - 31 [facility]CT MCV RBC Auto 94.0 fL 5 80 - 100 [facility]CT RDW RBC Auto-Rto 20.8 % Above high normal 5 11.5 - 14.5 [facility]CT POC Glucose 108.0 mg/dL Above high normal 5 65 - 99 [facility] POC Glucose 91.0 mg/dL 5 65 - 99 [facility] POC Glucose 67.0 mg/dL 5 65 - 99 [facility]CT POC Glucose 126.0 mg/dL Above high normal 5 65 - 99 [facility]CT POC Glucose 188.0 mg/dL Above high normal 5 65 - 99 [facility]CT Potassium SerPl-sCnc 6.6 mmol/L Critically high 5 3.4 - 5.3 [facility]CT POC Glucose 116.0 mg/dL Above high normal 5 65 - 99 [facility]CT Lactate SerPl-sCnc 3.0 mmol/L Critically high 5 0.5 - 1.9 HHCCT INR PPP 1.9 5 HHCCT Prothrombin time 21.9 seconds Above high normal 5 10 - 13.5 H[facility]CT Anticoagulant APIXABAN (ELIQUIS) 01/21/20 2 5 [facility]HCCT POC Glucose 122.0 mg/dL Above high normal 5 65 - 99 [facility]CT Lipase SerPl-cCnc 37.0 U/L 5 13 - 60 [facility]CT BUN/Creat SerPl 9.0 Ratio Below low normal 01/21/20 2 5 10 - 25 [facility]CT CO2 SerPl-sCnc 20.0 mmol/L Below low normal 5 22 - 33 H[facility]CT AST SerPl-cCnc 30.0 U/L 5 10 - 50 [facility]CT BUN SerPl-mCnc 85.0 mg/dL Above high normal 01/21/20 2 5 8 - 21 [facility]CT Anion Gap Bld-sCnc 25.0 Above high normal 12/31 5 7 - 17 [facility]CT Chloride SerPl-sCnc 99.0 mmol/L 5 98 - 107 HHCCT ALT SerPl-cCnc 21.0 U/L 5 10 - 50 [facility]CT Prot SerPl-mCnc 6.9 g/dL 5 6.3 - 8.3 HHCCT Potassium SerPl-sCnc 6.2 mmol/L Critically high 5 3.4 - 5.3 HHCCT Globulin Ser Calc-mCnc 3.1 g/dL 5 1.5 - 3.9 HHCCT GFR/BSA.pred SerPlBld [id number] 4.0 Below low normal 5 59 - HHCCT Sodium SerPl-sCnc 144.0 mmol/L 5 136 - 145 H[facility]CT Calcium SerPl-mCnc 10.5 mg/dL 5 8.7 - 10.5 H[facility]CT Creat SerPl-mCnc 9.3 mg/dL Above high normal 5 0.4 - 1.1 HHCCT ALP SerPl-cCnc 65.0 U/L 5 32 - 122 [facility]CT Albumin/Glob SerPl 1.2 Ratio 5 1 - 3 HHCCT Bilirub SerPl-mCnc 1.7 mg/dL Above high normal 12/31 5 0.2 - 1 [facility]CT Albumin SerPl-mCnc 3.8 g/dL 5 3.5 - 5 [facility]CT Glucose SerPl-mCnc 113.0 mg/dL Above high normal 12/31 5 65 - 99 H[facility]CT Monocytes/leuk NFr Bld Auto 10.2 % 5 HHCCT Imm Granulocytes/leuk NFr Bld Auto 0.5 % 5 HHCCT RDW RBC Auto-Rto 21.0 % Above high normal 5 11.5 - 14.5 HHCCT Lymphocytes num Bld Auto 1.72 Thou/uL 5 1.5 - 4.5 HHCCT Neutrophils/leuk NFr Bld Auto 65.9 % 5 HHCCT Neutrophils num Bld Auto 5.18 Thou/uL 5 2 - 7.5 HHCCT Basophils num Bld Auto 0.03 Thou/uL 5 0 - 0.2 HHCCT Hgb Bld-mCnc 12.3 g/dL 5 11.7 - 15.7 HHCCT Lymphocytes/leuk NFr Bld Auto 21.9 % 5 HHCCT Hct VFr Bld Auto 41.0 % 5 35 - 47 HHCCT MCHC RBC Auto-mCnc 30.0 g/dL 5 30 - 36 H[facility]CT Basophils/leuk NFr Bld Auto 0.4 % 5 HHCCT nRBC/100 WBC Bld Auto-Rto 0.4 /100 WBC Above high normal 5 0 - 0.1 [facility]CT Platelet num Bld Auto 240.0 Thou/uL 5 150 - 450 H[facility]CT Eosinophil/leuk NFr Bld Auto 1.1 % 5 HHCCT nRBC num Bld Auto 0.03 Thou/uL Above high normal 01/20 5 0 - 0.02 HHCCT MCH RBC Qn Auto 28.2 pg 5 27 - 31 HHCCT RBC num Bld Auto 4.36 Mil/uL 5 4 - 5.4 HHCCT Eosinophil num Bld Auto 0.09 Thou/uL 5 0 - 0.7 HHCCT Monocytes num Bld Auto 0.8 Thou/uL 5 0.2 - 1.5 HHCCT PMV Bld Auto 11.4 fL 5 7.5 - 12.5 HHCCT WBC num Bld Auto 7.9 Thou/uL 5 4 - 11 HHCCT Imm Granulocytes num Bld Auto 0.04 Thou/uL 5 0 - 0.1 HHCCT MCV RBC Auto 94.0 fL 5 80 - 100 HHCCT Sodium SerPl-sCnc 132.0 mmol/L Below low normal 5 136 - 145 HHCCT Chloride SerPl-sCnc 92.0 mmol/L Below low normal 5 98 - 107 HHCCT Anion Gap Bld-sCnc 21.0 Above high normal 12/30 5 7 - 17 H[facility]CT BUN/Creat SerPl 9.0 Ratio Below low normal 01/14/20 2 5 10 - 25 [facility]CT Calcium SerPl-mCnc 9.1 mg/dL 5 8.7 - 10.5 HHCCT CO2 SerPl-sCnc 19.0 mmol/L Below low normal 5 22 - 33 HHCCT GFR/BSA.pred SerPlBld [id number] 4.0 Below low normal 5 59 - HHCCT BUN SerPl-mCnc 84.0 mg/dL Above high normal 01/14/20 2 5 8 - 21 H[facility]CT Potassium SerPl-sCnc 5.4 mmol/L Above high normal 5 3.4 - 5.3 HHCCT Glucose SerPl-mCnc 126.0 mg/dL Above high normal 12/30 5 65 - 99 [facility]CT Creat SerPl-mCnc 9.3 mg/dL Above high normal 5 0.4 - 1.1 HHCCT RBC num Bld Auto 4.3 Mil/uL 5 4 - 5.4 HHCCT WBC num Bld Auto 6.5 Thou/uL 5 4 - 11 HHCCT nRBC num Bld Auto 0.04 Thou/uL Above high normal 01/13 5 0 - 0.02 HHCCT MCHC RBC Auto-mCnc 30.9 g/dL 5 30 - 36 HHCCT nRBC/100 WBC Bld Auto-Rto 0.6 /100 WBC Above high normal 5 0 - 0.1 HHCCT Hgb Bld-mCnc 12.1 g/dL 5 11.7 - 15.7 HHCCT PMV Bld Auto 11.1 fL 5 7.5 - 12.5 HHCCT MCV RBC Auto 91.0 fL 5 80 - 100 HHCCT MCH RBC Qn Auto 28.1 pg 5 27 - 31 [facility]CT Platelet num Bld Auto 188.0 Thou/uL 5 150 - 450 HHCCT RDW RBC Auto-Rto 21.3 % Above high normal 5 11.5 - 14.5 HHCCT Hct VFr Bld Auto 39.1 % 5 35 - 47 HHCCT Phosphate SerPl-mCnc 7.0 mg/dL Above high normal 5 2.7 - 4.5 HHCCT Magnesium SerPl-mCnc 2.6 mg/dL 5 1.6 - 2.7 HHCCT Anion Gap Bld-sCnc 21.0 Above high normal 12/30 5 7 - 17 HHCCT BUN SerPl-mCnc 69.0 mg/dL Above high normal 01/13/20 2 5 8 - 21 HHCCT Creat SerPl-mCnc 8.0 mg/dL Above high normal 5 0.4 - 1.1 HHCCT Calcium SerPl-mCnc 9.0 mg/dL 5 8.7 - 10.5 HHCCT BUN/Creat SerPl 9.0 Ratio Below low normal 01/13/20 2 5 10 - 25 HHCCT GFR/BSA.pred SerPlBld [id number] 5.0 Below low normal 5 59 - HHCCT Sodium SerPl-sCnc 140.0 mmol/L 5 136 - 145 HHCCT Potassium SerPl-sCnc 4.7 mmol/L 5 3.4 - 5.3 HHCCT Chloride SerPl-sCnc 96.0 mmol/L Below low normal 5 98 - 107 HHCCT Glucose SerPl-mCnc 145.0 mg/dL Above high normal 12/30 5 65 - 99 HHCCT CO2 SerPl-sCnc 23.0 mmol/L 5 22 - 33 HHCCT POC Glucose 167.0 mg/dL Above high normal 5 65 - 99 HHCCT POC Glucose 158.0 mg/dL Above high normal 5 65 - 99 HHCCT BUN/Creat SerPl 8.0 Ratio Below low normal 01/12/20 2 5 10 - 25 HHCCT Sodium SerPl-sCnc 138.0 mmol/L 5 136 - 145 HHCCT Anion Gap Bld-sCnc 18.0 Above high normal 12/30 5 7 - 17 HHCCT Calcium SerPl-mCnc 8.8 mg/dL 5 8.7 - 10.5 HHCCT Potassium SerPl-sCnc 4.2 mmol/L 5 3.4 - 5.3 HHCCT Creat SerPl-mCnc 6.4 mg/dL Above high normal 5 0.4 - 1.1 HHCCT BUN SerPl-mCnc 50.0 mg/dL Above high normal 01/12/20 2 5 8 - 21 HHCCT Chloride SerPl-sCnc 97.0 mmol/L Below low normal 5 98 - 107 HHCCT Glucose SerPl-mCnc 134.0 mg/dL Above high normal 12/30 5 65 - 99 HHCCT GFR/BSA.pred SerPlBld [id number] 7.0 Below low normal 5 59 - HHCCT CO2 SerPl-sCnc 23.0 mmol/L 5 22 - 33 HHCCT POC Glucose 132.0 mg/dL Above high normal 5 65 - 99 HHCCT POC Glucose 112.0 mg/dL Above high normal 5 65 - 99 HHCCT POC Glucose 221.0 mg/dL Above high normal 5 65 - 99 HHCCT POC Glucose 115.0 mg/dL Above high normal 5 65 - 99 HHCCT HBV surface Ag Ser Ql Nonreactive 5 - HHCCT Hgb Bld-mCnc 12.1 g/dL 5 11.7 - 15.7 HHCCT Hct VFr Bld Auto 39.3 % 5 35 - 47 HHCCT PMV Bld Auto 11.8 fL 5 7.5 - 12.5 HHCCT RDW RBC Auto-Rto 19.9 % Above high normal 5 11.5 - 14.5 HHCCT MCHC RBC Auto-mCnc 30.8 g/dL 5 30 - 36 HHCCT nRBC num Bld Auto 0.06 Thou/uL Above high normal 01/10 5 0 - 0.02 HHCCT MCV RBC Auto 91.0 fL 5 80 - 100 [facility]CT Platelet num Bld Auto 211.0 Thou/uL 5 150 - 450 HHCCT RBC num Bld Auto 4.31 Mil/uL 5 4 - 5.4 HHCCT MCH RBC Qn Auto 28.1 pg 5 27 - 31 HHCCT nRBC/100 WBC Bld Auto-Rto 1.0 /100 WBC Above high normal 5 0 - 0.1 HHCCT WBC num Bld Auto 5.8 Thou/uL 5 4 - 11 HHCCT Chloride SerPl-sCnc 96.0 mmol/L Below low normal 5 98 - 107 HHCCT BUN/Creat SerPl 10.0 Ratio 5 10 - 25 HHCCT Glucose SerPl-mCnc 119.0 mg/dL Above high normal 12/30 5 65 - 99 HHCCT Sodium SerPl-sCnc 140.0 mmol/L 5 136 - 145 HHCCT Calcium SerPl-mCnc 9.6 mg/dL 5 8.7 - 10.5 HHCCT GFR/BSA.pred SerPlBld [id number] 5.0 Below low normal 5 59 - HHCCT Creat SerPl-mCnc 9.2 mg/dL Above high normal 5 0.4 - 1.1 HHCCT BUN SerPl-mCnc 89.0 mg/dL Above high normal 01/11/20 2 5 8 - 21 HHCCT Anion Gap Bld-sCnc 23.0 Above high normal 12/30 5 7 - 17 HHCCT CO2 SerPl-sCnc 21.0 mmol/L Below low normal 5 22 - 33 HHCCT Potassium SerPl-sCnc 5.6 mmol/L Above high normal 5 3.4 - 5.3 HHCCT POC Glucose 149.0 mg/dL Above high normal 5 65 - 99 HHCCT POC Glucose 183.0 mg/dL Above high normal 5 65 - 99 HHCCT POC Glucose 139.0 mg/dL Above high normal 5 65 - 99 HHCCT POC Glucose 176.0 mg/dL Above high normal 5 65 - 99 HHCCT Cortis AM peak SerPl-mCnc 23.9 ug/dL Above high normal 5 6.2 - 19.4 HHCCT Vit B12 SerPl-mCnc >2000.0 pg/mL Above high normal 5 243 - 894 HHCCT ALP SerPl-cCnc 60.0 U/L 5 32 - 122 HHCCT Calcium SerPl-mCnc 9.7 mg/dL 5 8.7 - 10.5 HHCCT Globulin Ser Calc-mCnc 2.8 g/dL 5 1.5 - 3.9 HHCCT BUN/Creat SerPl 9.0 Ratio Below low normal 01/10/20 2 5 10 - 25 HHCCT Bilirub SerPl-mCnc 1.7 mg/dL Above high normal 12/30 5 0.2 - 1 HHCCT Prot SerPl-mCnc 6.7 g/dL 5 6.3 - 8.3 HHCCT Glucose SerPl-mCnc 108.0 mg/dL Above high normal 12/30 5 65 - 99 HHCCT BUN SerPl-mCnc 71.0 mg/dL Above high normal 01/10/20 2 5 8 - 21 HHCCT Albumin SerPl-mCnc 3.9 g/dL 5 3.5 - 5 HHCCT GFR/BSA.pred SerPlBld [id number] 6.0 Below low normal 5 59 - HHCCT Sodium SerPl-sCnc 137.0 mmol/L 5 136 - 145 HHCCT Anion Gap Bld-sCnc 22.0 Above high normal 12/30 5 7 - 17 HHCCT Albumin/Glob SerPl 1.4 Ratio 5 1 - 3 HHCCT CO2 SerPl-sCnc 20.0 mmol/L Below low normal 5 22 - 33 HHCCT Potassium SerPl-sCnc 5.1 mmol/L 5 3.4 - 5.3 HHCCT Creat SerPl-mCnc 7.8 mg/dL Above high normal 5 0.4 - 1.1 HHCCT Chloride SerPl-sCnc 95.0 mmol/L Below low normal 5 98 - 107 HHCCT AST SerPl-cCnc 29.0 U/L 5 10 - 50 HHCCT ALT SerPl-cCnc 20.0 U/L 5 10 - 50 HHCCT Magnesium SerPl-mCnc 2.3 mg/dL 5 1.6 - 2.7 HHCCT Lactate SerPl-sCnc 2.7 mmol/L Above high normal 12/30 5 0.5 - 1.9 HHCCT Folate SerPl-mCnc 16.4 ng/mL 5 7.2 - HHCCT nRBC num Bld Auto 0.08 Thou/uL Above high normal 01/09 5 0 - 0.02 HHCCT Basophils/leuk NFr Bld Auto 0.4 % 5 HHCCT Eosinophil num Bld Auto 0.05 Thou/uL 5 0 - 0.7 HHCCT Imm Granulocytes/leuk NFr Bld Auto 0.8 % 5 HHCCT RDW RBC Auto-Rto 19.3 % Above high normal 5 11.5 - 14.5 HHCCT Hgb Bld-mCnc 12.1 g/dL 5 11.7 - 15.7 HHCCT MCH RBC Qn Auto 28.7 pg 5 27 - 31 HHCCT Neutrophils/leuk NFr Bld Auto 71.3 % 5 HHCCT Eosinophil/leuk NFr Bld Auto 0.7 % 5 HHCCT Imm Granulocytes num Bld Auto 0.06 Thou/uL 5 0 - 0.1 HHCCT Monocytes num Bld Auto 0.72 Thou/uL 5 0.2 - 1.5 HHCCT Platelet num Bld Auto 218.0 Thou/uL 5 150 - 450 HHCCT Basophils num Bld Auto 0.03 Thou/uL 5 0 - 0.2 HHCCT MCV RBC Auto 91.0 fL 5 80 - 100 HHCCT nRBC/100 WBC Bld Auto-Rto 1.1 /100 WBC Above high normal 5 0 - 0.1 HHCCT Hct VFr Bld Auto 38.4 % 5 35 - 47 HHCCT PMV Bld Auto 10.9 fL 5 7.5 - 12.5 HHCCT WBC num Bld Auto 7.5 Thou/uL 5 4 - 11 HHCCT Neutrophils num Bld Auto 5.36 Thou/uL 5 2 - 7.5 HHCCT RBC num Bld Auto 4.22 Mil/uL 5 4 - 5.4 HHCCT MCHC RBC Auto-mCnc 31.5 g/dL 5 30 - 36 HHCCT Lymphocytes/leuk NFr Bld Auto 17.2 % 5 HHCCT Monocytes/leuk NFr Bld Auto 9.6 % 5 HHCCT Lymphocytes num Bld Auto 1.29 Thou/uL Below low normal 5 1.5 - 4.5 HHCCT Delta 1.0 5 - 3 HHCCT Troponin T SerPl-mCnc 68.0 ng/L Critically high 5 - 15 HHCCT POC Glucose 104.0 mg/dL Above high normal 5 65 - 99 [facility] Ammonia Plas-sCnc 33.0 umol/L 5 11 - 51 [facility] T. pallidum IgG+IgM Ser QI IA Nonreactive 5 - [facility] HIV-1 p24 Antigen Negative 5 - [facility] HIV-1/2 Antibody Negative 5 - [facility] Delta NO PREVIOUS RESULT 5 - 3 [facility] Troponin T SerPl-mCnc 67.0 ng/L Critically high 5 - 15 [facility] TSH SerPl DL<=0.005 mIU/L-aCnc 1.55 mIU/L 5 0.27 - 4.2 [facility] Lactate SerPl-sCnc 3.0 mmol/L Critically high 5 0.5 - 1.9 [facility] WBC num/area UrnS HPF 0.0 per hpf 5 0 - 4 [facility] RBC num/area UrnS HPF 0.0 per hpf 5 0 - 4 [facility] Leukocyte esterase Ur Ql Strip Negative 5 - [facility] Hgb Ur Ql Strip Small Abnormal 5 - [facility] Ketones Ur Strip-mCnc Negative 5 - [facility] Glucose Ur Strip-mCnc 50.0 mg/dL 5 0 - 99 [facility] Nitrite Ur Ql Strip Negative 5 - [facility] Clarity Ur Clear 5 [facility] Prot Ur Strip-mCnc Moderate (100 mg/dL) Abnormal 5 - [facility] pH Ur Strip 8.0 5 5 - 8 [facility] Bilirub Ur Strip-mCnc Negative 5 - [facility] Sp Gr Ur Strip 1.011 5 1.003 - 1.03 [facility] Color Ur Yellow 5 [facility] Lactate SerPl-sCnc 3.2 mmol/L Critically high 5 0.5 - 1.9 [facility] ISTAT Lactate 3.42 mmol/L Above high normal 5 0.5 - 1.9 [facility] ISTAT Lactate 2.61 mmol/L Above high normal 5 0.5 - 1.9 [facility] Potassium SerPl-sCnc 5.0 mmol/L 5 3.4 - 5.3 [facility] Chloride SerPl-sCnc 95.0 mmol/L Below low normal 5 98 - 107 [facility] Glucose SerPl-mCnc 86.0 mg/dL 5 65 - 99 [facility] Albumin/Glob SerPl 1.5 Ratio 5 1 - 3 [facility] Calcium SerPl-mCnc 10.2 mg/dL 5 8.7 - 10.5 [facility] Creat SerPl-mCnc 9.7 mg/dL Above high normal 5 0.4 - 1.1 [facility] GFR/BSA.pred SerPlBld [id number] 4.0 Below low normal 5 59 - [facility] Prot SerPl-mCnc 6.7 g/dL 5 6.3 - 8.3 [facility] CO2 SerPl-sCnc 18.0 mmol/L Below low normal 5 22 - 33 [facility] ALP SerPl-cCnc 58.0 U/L 5 32 - 122 [facility] Anion Gap Bld-sCnc 28.0 Above high normal 12/30 5 7 - 17 [facility] Globulin Ser Calc-mCnc 2.7 g/dL 5 1.5 - 3.9 [facility] Albumin SerPl-mCnc 4.0 g/dL 5 3.5 - 5 [facility] ALT SerPl-cCnc 18.0 U/L 5 10 - 50 [facility] AST SerPl-cCnc 27.0 U/L 5 10 - 50 [facility] BUN SerPl-mCnc 92.0 mg/dL Above high normal 01/09/20 2 5 8 - 21 [facility] BUN/Creat SerPl 9.0 Ratio Below low normal 01/09/20 2 5 10 - 25 [facility] Sodium SerPl-sCnc 141.0 mmol/L 5 136 - 145 [facility] Bilirub SerPl-mCnc 1.6 mg/dL Above high normal 12/30 5 0.2 - 1 [facility] Lipase SerPl-cCnc 27.0 U/L 5 13 - 60 [facility] Monocytes num Bld Auto 0.77 Thou/uL 5 0.2 - 1.5 [facility] MCV RBC Auto 89.0 fL 5 80 - 100 [facility] Platelet num Bld Auto 234.0 Thou/uL 5 150 - 450 [facility] MCHC RBC Auto-mCnc 31.4 g/dL 5 30 - 36 [facility] WBC num Bld Auto 7.5 Thou/uL 5 4 - 11 [facility] RDW RBC Auto-Rto 19.1 % Above high normal 5 11.5 - 14.5 [facility] Monocytes/leuk NFr Bld Auto 10.3 % 5 [facility] Lymphocytes num Bld Auto 1.57 Thou/uL 5 1.5 - 4.5 [facility] nRBC num Bld Auto 0.05 Thou/uL Above high normal 01/08 5 0 - 0.02 [facility] Imm Granulocytes num Bld Auto 0.03 Thou/uL 5 0 - 0.1 [facility] Neutrophils num Bld Auto 4.92 Thou/uL 5 2 - 7.5 [facility] Lymphocytes/leuk NFr Bld Auto 21.1 % 5 [facility] PMV Bld Auto 11.2 fL 5 7.5 - 12.5 [facility] Basophils/leuk NFr Bld Auto 0.7 % 5 [facility] RBC num Bld Auto 4.14 Mil/uL 5 4 - 5.4 [facility] nRBC/100 WBC Bld Auto-Rto 0.7 /100 WBC Above high normal 5 0 - 0.1 [facility] Basophils num Bld Auto 0.05 Thou/uL 5 0 - 0.2 [facility] Hct VFr Bld Auto 36.9 % 5 35 - 47 [facility] MCH RBC Qn Auto 28.0 pg 5 27 - 31 [facility] Hgb Bld-mCnc 11.6 g/dL Below low normal 5 11.7 - 15.7 [facility] Imm Granulocytes/leuk NFr Bld Auto 0.4 % 5 [facility] Neutrophils/leuk NFr Bld Auto 66.0 % 5 [facility] Eosinophil/leuk NFr Bld Auto 1.5 % 5 [facility] Eosinophil num Bld Auto 0.11 Thou/uL 5 0 - 0.7 [facility] Delta 1.0 5 - 3 [facility] Troponin T SerPl-mCnc 63.0 ng/L Critically high 5 - 15 [facility] Troponin T SerPl-mCnc 64.0 ng/L Critically high 5 - 15 [facility] Delta NO PREVIOUS RESULT 5 - 3 [facility] BUN SerPl-mCnc 75.0 mg/dL Above high normal 01/07/20 2 5 8 - 21 [facility] ALT SerPl-cCnc 17.0 U/L 5 10 - 50 [facility] GFR/BSA.pred SerPlBld [id number] 5.0 Below low normal 5 59 - [facility]CT ALP SerPl-cCnc 57.0 U/L 5 32 - 122 [facility]CT Bilirub SerPl-mCnc 1.4 mg/dL Above high normal 5 0.2 - 1 [facility] Anion Gap Bld-sCnc 22.0 Above high normal 5 7 - 17 [facility] Chloride SerPl-sCnc 96.0 mmol/L Below low normal 5 98 - 107 [facility] AST SerPl-cCnc 24.0 U/L 5 10 - 50 [facility] Albumin SerPl-mCnc 4.1 g/dL 5 3.5 - 5 [facility] Sodium SerPl-sCnc 140.0 mmol/L 5 136 - 145 [facility] Calcium SerPl-mCnc 10.2 mg/dL 5 8.7 - 10.5 [facility] Globulin Ser Calc-mCnc 3.0 g/dL 5 1.5 - 3.9 [facility] Prot SerPl-mCnc 7.1 g/dL 5 6.3 - 8.3 [facility] Albumin/Glob SerPl 1.4 Ratio 5 1 - 3 [facility] BUN/Creat SerPl 9.0 Ratio Below low normal 01/07/20 2 5 10 - 25 [facility] Creat SerPl-mCnc 8.3 mg/dL Above high normal 5 0.4 - 1.1 [facility] CO2 SerPl-sCnc 22.0 mmol/L 5 22 - 33 [facility] Glucose SerPl-mCnc 80.0 mg/dL 5 65 - 99 [facility] Potassium SerPl-sCnc 5.2 mmol/L 5 3.4 - 5.3 [facility] Monocytes/leuk NFr Bld Auto 9.3 % 5 [facility] Imm Granulocytes num Bld Auto 0.04 Thou/uL 5 0 - 0.1 [facility] WBC num Bld Auto 8.7 Thou/uL 5 4 - 11 [facility] Basophils num Bld Auto 0.06 Thou/uL 5 0 - 0.2 [facility] Hgb Bld-mCnc 11.1 g/dL Below low normal 5 11.7 - 15.7 [facility] Lymphocytes num Bld Auto 2.08 Thou/uL 5 1.5 - 4.5 [facility] Eosinophil/leuk NFr Bld Auto 1.8 % 5 [facility] MCV RBC Auto 92.0 fL 5 80 - 100 [facility] RDW RBC Auto-Rto 18.6 % Above high normal 5 11.5 - 14.5 [facility] Neutrophils num Bld Auto 5.58 Thou/uL 5 2 - 7.5 [facility] MCHC RBC Auto-mCnc 29.8 g/dL Below low normal 01/06 5 30 - 36 [facility] Lymphocytes/leuk NFr Bld Auto 23.8 % 5 [facility] Eosinophil num Bld Auto 0.16 Thou/uL 5 0 - 0.7 [facility] RBC num Bld Auto 4.05 Mil/uL 5 4 - 5.4 [facility] Imm Granulocytes/leuk NFr Bld Auto 0.5 % 5 [facility] Monocytes num Bld Auto 0.81 Thou/uL 5 0.2 - 1.5 [facility] MCH RBC Qn Auto 27.4 pg 5 27 - 31 [facility] Neutrophils/leuk NFr Bld Auto 63.9 % 5 [facility] PMV Bld Auto 10.9 fL 5 7.5 - 12.5 [facility] Basophils/leuk NFr Bld Auto 0.7 % 5 [facility] Platelet num Bld Auto 213.0 Thou/uL 5 150 - 450 [facility] Hct VFr Bld Auto 37.2 % 5 35 - 47 [facility] GFR/BSA.pred SerPlBld [id number] 16.0 Below low normal 5 59 - [facility] BUN/Creat SerPl 7.0 Ratio Below low normal 11/05/19 2 5 10 - 25 [facility] Calcium SerPl-mCnc 9.2 mg/dL 5 8.7 - 10.5 [facility] Creat SerPl-mCnc 3.3 mg/dL Above high normal 5 0.4 - 1.1 [facility] BUN SerPl-mCnc 22.0 mg/dL Above high normal 11/05/19 2 5 8 - 21 [facility] Glucose SerPl-mCnc 140.0 mg/dL Above high normal 5 65 - 99 [facility] Sodium SerPl-sCnc 139.0 mmol/L 5 136 - 145 [facility] Chloride SerPl-sCnc 98.0 mmol/L 5 98 - 107 [facility] Potassium SerPl-sCnc 3.7 mmol/L 5 3.4 - 5.3 [facility] CO2 SerPl-sCnc 29.0 mmol/L 5 22 - 33 [facility] Anion Gap Bld-sCnc 12.0 5 7 - 17 [facility] Magnesium SerPl-mCnc 2.6 mg/dL 5 1.6 - 2.7 [facility] RBC num Bld Auto 4.17 Mil/uL 5 4 - 5.4 [facility] PMV Bld Auto 11.6 fL 5 7.5 - 12.5 [facility] Hgb Bld-mCnc 11.9 g/dL 5 11.7 - 15.7 [facility] Hct VFr Bld Auto 37.9 % 5 35 - 47 [facility] nRBC/100 WBC Bld Auto-Rto 0.5 /100 WBC Above high normal 5 0 - 0.1 [facility] WBC num Bld Auto 8.0 Thou/uL 5 4 - 11 [facility] Platelet num Bld Auto 220.0 Thou/uL 5 150 - 450 [facility] MCV RBC Auto 91.0 fL 5 80 - 100 [facility] MCH RBC Qn Auto 28.5 pg 5 27 - 31 [facility] RDW RBC Auto-Rto 17.7 % Above high normal 5 11.5 - 14.5 [facility] nRBC num Bld Auto 0.04 Thou/uL Above high normal 11/04 5 0 - 0.02 [facility] MCHC RBC Auto-mCnc 31.4 g/dL 5 30 - 36 [facility] Magnesium SerPl-mCnc 2.8 mg/dL Above high normal 5 1.6 - 2.7 [facility] Potassium SerPl-sCnc 6.2 mmol/L Critically high 5 3.4 - 5.3 [facility] Chloride SerPl-sCnc 96.0 mmol/L Below low normal 5 98 - 107 [facility] BUN SerPl-mCnc 66.0 mg/dL Above high normal 11/04/19 2 5 8 - 21 [facility] GFR/BSA.pred SerPlBld [id number] 6.0 Below low normal 5 59 - [facility]CT Sodium SerPl-sCnc 137.0 mmol/L Normal 5 136 - 145 [facility] Creat SerPl-mCnc 7.5 mg/dL Above high normal 5 0.4 - 1.1 [facility] Calcium SerPl-mCnc 9.3 mg/dL Normal 5 8.7 - 10.5 [facility] BUN/Creat SerPl 9.0 Ratio Below low normal 11/04/19 2 5 10 - 25 [facility] Glucose SerPl-mCnc 94.0 mg/dL Normal 5 65 - 99 [facility] Anion Gap Bld-sCnc 21.0 Above high normal 05/ 5 7 - 17 [facility] CO2 SerPl-sCnc 20.0 mmol/L Below low normal 5 22 - 33 [facility] RBC num Bld Auto 4.48 Mil/uL Normal 5 4 - 5.4 [facility] Hct VFr Bld Auto 40.4 % Normal 5 35 - 47 [facility] WBC num Bld Auto 8.9 Thou/uL Normal 5 4 - 11 [facility] MCHC RBC Auto-mCnc 31.7 g/dL Normal 5 30 - 36 [facility] MCV RBC Auto 90.0 fL Normal 5 80 - 100 [facility] RDW RBC Auto-Rto 17.6 % Above high normal 5 11.5 - 14.5 [facility] PMV Bld Auto 11.1 fL Normal 5 7.5 - 12.5 [facility] Hgb Bld-mCnc 12.8 g/dL Normal 5 11.7 - 15.7 [facility] Platelet num Bld Auto 221.0 Thou/uL Normal 5 150 - 450 [facility] MCH RBC Qn Auto 28.6 pg Normal 5 27 - 31 [facility] Magnesium SerPl-mCnc 2.6 mg/dL Normal 5 1.6 - 2.7 [facility] CO2 SerPl-sCnc 22.0 mmol/L Normal 5 22 - 33 [facility] BUN/Creat SerPl 8.0 Ratio Below low normal 11/03/19 2 5 10 - 25 [facility] GFR/BSA.pred SerPlBld [id number] 8.0 Below low normal 5 59 - [facility]CT Sodium SerPl-sCnc 137.0 mmol/L Normal 5 136 - 145 [facility]CT Chloride SerPl-sCnc 97.0 mmol/L Below low normal 5 98 - 107 [facility]CT Potassium SerPl-sCnc 4.9 mmol/L Normal 5 3.4 - 5.3 [facility] Anion Gap Bld-sCnc 18.0 Above high normal 5 7 - 17 [facility] Glucose SerPl-mCnc 225.0 mg/dL Above high normal 05/0 5 65 - 99 [facility] Creat SerPl-mCnc 6.0 mg/dL Above high normal 5 0.4 - 1.1 [facility]CT Calcium SerPl-mCnc 9.1 mg/dL Normal 5 8.7 - 10.5 [facility]CT BUN SerPl-mCnc 46.0 mg/dL Above high normal 11/03/19 2 5 8 - 21 [facility] MCV RBC Auto 93.0 fL Normal 5 80 - 100 [facility] MCH RBC Qn Auto 27.9 pg Normal 5 27 - 31 [facility] Hct VFr Bld Auto 38.9 % Normal 5 35 - 47 [facility] PMV Bld Auto 10.9 fL Normal 5 7.5 - 12.5 [facility] MCHC RBC Auto-mCnc 30.1 g/dL Normal 5 30 - 36 [facility] RBC num Bld Auto 4.2 Mil/uL Normal 5 4 - 5.4 [facility] RDW RBC Auto-Rto 17.6 % Above high normal 5 11.5 - 14.5 [facility] Hgb Bld-mCnc 11.7 g/dL Normal 5 11.7 - 15.7 [facility] Platelet num Bld Auto 232.0 Thou/uL Normal 5 150 - 450 [facility] WBC num Bld Auto 7.6 Thou/uL Normal 5 4 - 11 [facility]CT Troponin T SerPl-mCnc 83.0 ng/L Critically high 5 - 15 [facility] Delta 5.0 Above high normal 5 - 3 [facility] Potassium SerPl-sCnc 4.1 mmol/L Normal 5 3.4 - 5.3 [facility] POC Glucose 64.0 mg/dL Below low normal 5 65 - 99 [facility] Troponin T SerPl-mCnc 80.0 ng/L Critically high 5 - 15 [facility] Delta 2.0 Normal 5 - 3 [facility]CT Bilirub SerPl-mCnc 0.8 mg/dL Normal 5 0.2 - 1 [facility] Creat SerPl-mCnc 8.6 mg/dL Above high normal 5 0.4 - 1.1 [facility] Calcium SerPl-mCnc 9.7 mg/dL Normal 5 8.7 - 10.5 [facility] Albumin/Glob SerPl 1.3 Ratio Normal 5 1 - 3 [facility] Prot SerPl-mCnc 7.0 g/dL Normal 5 6.3 - 8.3 [facility] BUN/Creat SerPl 8.0 Ratio Below low normal 11/02/19 2 5 10 - 25 [facility] Glucose SerPl-mCnc 104.0 mg/dL Above high normal 5 65 - 99 [facility] GFR/BSA.pred SerPlBld QEN-QNI-RvLIme 5.0 Below low normal 5 59 - [facility]CT Anion Gap Bld-sCnc 17.0 Normal 5 7 - 17 [facility] Sodium SerPl-sCnc 140.0 mmol/L Normal 5 136 - 145 [facility]CT ALT SerPl-cCnc 25.0 U/L Normal 5 10 - 50 [facility] CO2 SerPl-sCnc 22.0 mmol/L Normal 5 22 - 33 [facility]CT Potassium SerPl-sCnc 6.7 mmol/L Critically high 5 3.4 - 5.3 [facility]CT Chloride SerPl-sCnc 101.0 mmol/L Normal 5 98 - 107 [facility]CT Albumin SerPl-mCnc 3.9 g/dL Normal 5 3.5 - 5 [facility]CT AST SerPl-cCnc 36.0 U/L Normal 5 10 - 50 [facility] BUN SerPl-mCnc 69.0 mg/dL Above high normal 11/02/19 2 5 8 - 21 [facility] ALP SerPl-cCnc 61.0 U/L Normal 5 32 - 122 [facility] Globulin Ser Calc-mCnc 3.1 g/dL Normal 5 1.5 - 3.9 [facility]CT TSH SerPl DL<=0.005 mIU/L-aCnc 1.88 mIU/L Normal 5 0.27 - 4.2 [facility] Delta NO PREVIOUS RESULT Normal 5 - 3 [facility]CT Troponin T SerPl-mCnc 78.0 ng/L Critically high 5 - 15 [facility]CT Magnesium SerPl-mCnc 2.6 mg/dL Normal 5 1.6 - 2.7 [facility]CT Eosinophil num Bld Auto 0.09 Thou/uL Normal 5 0 - 0.7 [facility] Imm Granulocytes/leuk NFr Bld Auto 0.2 % Normal 5 [facility] Platelet num Bld Auto 239.0 Thou/uL Normal 5 150 - 450 [facility] Neutrophils/leuk NFr Bld Auto 57.2 % Normal 5 [facility] MCV RBC Auto 94.0 fL Normal 5 80 - 100 [facility] MCH RBC Qn Auto 28.7 pg Normal 5 27 - 31 [facility] Lymphocytes/leuk NFr Bld Auto 32.8 % Normal 5 [facility] Eosinophil/leuk NFr Bld Auto 1.1 % Normal 5 [facility] PMV Bld Auto 11.2 fL Normal 5 7.5 - 12.5 [facility] MCHC RBC Auto-mCnc 30.4 g/dL Normal 5 30 - 36 [facility] Monocytes/leuk NFr Bld Auto 8.2 % Normal 5 [facility] Basophils/leuk NFr Bld Auto 0.5 % Normal 5 [facility]CT Hct VFr Bld Auto 40.8 % Normal 5 35 - 47 [facility] Lymphocytes num Bld Auto 2.72 Thou/uL Normal 5 1.5 - 4.5 [facility]CT Basophils num Bld Auto 0.04 Thou/uL Normal 5 0 - 0.2 [facility] RDW RBC Auto-Rto 17.7 % Above high normal 5 11.5 - 14.5 [facility] Imm Granulocytes num Bld Auto 0.02 Thou/uL Normal 5 0 - 0.1 [facility]CT Monocytes num Bld Auto 0.68 Thou/uL Normal 5 0.2 - 1.5 [facility] Hgb Bld-mCnc 12.4 g/dL Normal 5 11.7 - 15.7 [facility]CT Neutrophils num Bld Auto 4.74 Thou/uL Normal 5 2 - 7.5 [facility] RBC num Bld Auto 4.32 Mil/uL Normal 5 4 - 5.4 [facility]CT WBC num Bld Auto 8.3 Thou/uL Normal 5 4 - 11 [facility] Glucose SerPl-mCnc 137.0 mg/dL Above high normal 09/30 5 65 - 99 [facility] Albumin SerPl-mCnc 4.1 g/dL Normal 5 3.5 - 5 [facility]CT Phosphate SerPl-mCnc 5.0 mg/dL Above high normal 5 2.7 - 4.5 [facility]CT Sodium SerPl-sCnc 140.0 mmol/L Normal 5 136 - 145 [facility]CT Chloride SerPl-sCnc 96.0 mmol/L Below low normal 5 98 - 107 [facility] BUN/Creat SerPl 9.0 Ratio Below low normal 10/19/19 2 5 10 - 25 [facility] Calcium SerPl-mCnc 9.4 mg/dL Normal 5 8.7 - 10.5 [facility] CO2 SerPl-sCnc 26.0 mmol/L Normal 5 22 - 33 [facility] Creat SerPl-mCnc 7.9 mg/dL Above high normal 5 0.4 - 1.1 [facility]CT GFR/BSA.pred SerPlBld [id number] 5.0 Below low normal 5 59 - [facility]HCCT Potassium SerPl-sCnc 5.0 mmol/L Normal 5 3.4 - 5.3 [facility]CT BUN SerPl-mCnc 70.0 mg/dL Above high normal 10/19/19 2 5 8 - 21 [facility]CT Hct VFr Bld Auto 42.5 % Normal 5 35 - 47 [facility] MCHC RBC Auto-mCnc 31.1 g/dL Normal 5 30 - 36 [facility] Platelet num Bld Auto 207.0 Thou/uL Normal 5 150 - 450 [facility] PMV Bld Auto 11.0 fL Normal 5 7.5 - 12.5 [facility]CT Hgb Bld-mCnc 13.2 g/dL Normal 5 11.7 - 15.7 [facility]CT RDW RBC Auto-Rto 17.2 % Above high normal 5 11.5 - 14.5 [facility] RBC num Bld Auto 4.52 Mil/uL Normal 5 4 - 5.4 [facility]CT WBC num Bld Auto 5.9 Thou/uL Normal 5 4 - 11 [facility] MCV RBC Auto 94.0 fL Normal 5 80 - 100 [facility] MCH RBC Qn Auto 29.2 pg Normal 5 27 - 31 [facility] HBV surface Ag Ser Ql Nonreactive Normal 5 - [facility] HBV surface Ab Ser Ql Reactive (Immune) Normal 5 - [facility] HBV core Ab Ser Ql Nonreactive Normal 5 - [facility]CT Potassium SerPl-sCnc 4.4 mmol/L Normal 5 3.4 - 5.3 [facility]CT Calcium SerPl-mCnc 9.2 mg/dL Normal 5 8.7 - 10.5 [facility]CT BUN SerPl-mCnc 75.0 mg/dL Above high normal 10/17/19 2 5 8 - 21 [facility] Creat SerPl-mCnc 8.7 mg/dL Above high normal 5 0.4 - 1.1 [facility]CT Phosphate SerPl-mCnc 4.7 mg/dL Above high normal 5 2.7 - 4.5 H[facility]CT Albumin SerPl-mCnc 3.8 g/dL Normal 5 3.5 - 5 [facility] CO2 SerPl-sCnc 24.0 mmol/L Normal 5 22 - 33 [facility]CT Sodium SerPl-sCnc 144.0 mmol/L Normal 5 136 - 145 [facility] GFR/BSA.pred SerPlBld BNC-NMO-[id number] 5.0 Below low normal 5 59 - [facility]CT Glucose SerPl-mCnc 116.0 mg/dL Above high normal 09/30 5 65 - 99 [facility] BUN/Creat SerPl 9.0 Ratio Below low normal 10/17/19 2 5 10 - 25 [facility]CT Chloride SerPl-sCnc 104.0 mmol/L Normal 5 98 - 107 [facility] MCH RBC Qn Auto 28.9 pg Normal 5 27 - 31 [facility] RBC num Bld Auto 4.22 Mil/uL Normal 5 4 - 5.4 [facility] RDW RBC Auto-Rto 16.7 % Above high normal 5 11.5 - 14.5 [facility]CT WBC num Bld Auto 5.1 Thou/uL Normal 5 4 - 11 [facility] PMV Bld Auto 10.7 fL Normal 5 7.5 - 12.5 [facility]CT Hgb Bld-mCnc 12.2 g/dL Normal 5 11.7 - 15.7 [facility]CT MCHC RBC Auto-mCnc 30.3 g/dL Normal 5 30 - 36 [facility] MCV RBC Auto 95.0 fL Normal 5 80 - 100 [facility] Hct VFr Bld Auto 40.2 % Normal 5 35 - 47 [facility] Platelet num Bld Auto 189.0 Thou/uL Normal 5 150 - 450 [facility] POC Glucose 139.0 mg/dL Above high normal 5 65 - 99 [facility] Urea Breath Test Ql NOT DETECTED Normal 5 - [facility] Endomysium IgA Ser Ql Negative Normal 5 - [facility] Gliadin IgG Ser IA-aCnc 3.5 U/mL Normal 5 [facility] tTG IgG Ser-aCnc 1.1 U/mL Normal 5 [facility] tTG IgA Ser-aCnc <1.0 Normal 5 [facility] IgA SerPl-mCnc 315.0 mg/dL Above high normal 10/19/19 2 5 47 - 310 [facility] Gliadin IgA Ser IA-aCnc <1.0 Normal 5 [facility] Salicylates SerPl-mCnc <1.0 mg/dL Below low normal 5 15 - 30 [facility] Globulin Ser Calc-mCnc 2.7 g/dL Normal 5 1.5 - 3.9 [facility]CT Albumin SerPl-mCnc 3.7 g/dL Normal 5 3.5 - 5 [facility] AST SerPl-cCnc 20.0 U/L Normal 5 10 - 50 [facility] Glucose SerPl-mCnc 153.0 mg/dL Above high normal 08/31 5 65 - 99 [facility] Sodium SerPl-sCnc 144.0 mmol/L Normal 5 136 - 145 [facility] Creat SerPl-mCnc 7.1 mg/dL Above high normal 5 0.4 - 1.1 [facility]CT Bilirub SerPl-mCnc 1.4 mg/dL Above high normal 08/31 5 0.2 - 1 [facility] Anion Gap Bld-sCnc 19.0 Above high normal 08/31 5 7 - 17 [facility]CT Chloride SerPl-sCnc 99.0 mmol/L Normal 5 98 - 107 [facility]CT Potassium SerPl-sCnc 4.0 mmol/L Normal 5 3.4 - 5.3 [facility]CT BUN SerPl-mCnc 45.0 mg/dL Above high normal 09/23/19 2 5 8 - 21 [facility]CT ALP SerPl-cCnc 51.0 U/L Normal 5 32 - 122 [facility]CT ALT SerPl-cCnc 17.0 U/L Normal 5 10 - 50 [facility]CT Calcium SerPl-mCnc 9.3 mg/dL Normal 5 8.7 - 10.5 [facility]CT Prot SerPl-mCnc 6.4 g/dL Normal 5 6.3 - 8.3 [facility] BUN/Creat SerPl 6.0 Ratio Below low normal 09/23/19 2 5 10 - 25 [facility] Albumin/Glob SerPl 1.4 Ratio Normal 5 1 - 3 [facility] GFR/BSA.pred SerPlBld [id number] 6.0 Below low normal 5 59 - [facility] CO2 SerPl-sCnc 26.0 mmol/L Normal 5 22 - 33 [facility]CT APAP SerPl-mCnc <5.0 mg/L Below low normal 09/23/19 2 5 10 - 30 [facility] INR PPP 2.6 Normal 5 [facility]CT Prothrombin time 30.6 seconds Above high normal 5 10 - 13.5 [facility]CT Anticoagulant APIXABAN (ELIQUIS) Normal 09/22/19 2 5 [facility]CT MCHC RBC Auto-mCnc 30.5 g/dL Normal 5 30 - 36 [facility] RBC num Bld Auto 4.13 Mil/uL Normal 5 4 - 5.4 [facility]CT MCV RBC Auto 97.0 fL Normal 5 80 - 100 [facility] Lymphocytes/leuk NFr Bld Auto 25.2 % Normal 5 [facility]CT Hgb Bld-mCnc 12.2 g/dL Normal 5 11.7 - 15.7 [facility]CT Lymphocytes num Bld Auto 1.84 Thou/uL Normal 5 1.5 - 4.5 [facility]CT Imm Granulocytes num Bld Auto 0.03 Thou/uL Normal 5 0 - 0.1 [facility]CT WBC num Bld Auto 7.3 Thou/uL Normal 5 4 - 11 [facility] Neutrophils/leuk NFr Bld Auto 63.9 % Normal 5 [facility]CT Monocytes num Bld Auto 0.6 Thou/uL Normal 5 0.2 - 1.5 [facility]CT Imm Granulocytes/leuk NFr Bld Auto 0.4 % Normal 5 [facility]CT nRBC num Bld Auto 0.06 Thou/uL Above high normal 09/22 5 0 - 0.02 H[facility]CT Eosinophil num Bld Auto 0.13 Thou/uL Normal 5 0 - 0.7 [facility]CT Monocytes/leuk NFr Bld Auto 8.2 % Normal 5 [facility]CT Basophils num Bld Auto 0.04 Thou/uL Normal 5 0 - 0.2 [facility] Platelet num Bld Auto 186.0 Thou/uL Normal 5 150 - 450 [facility] MCH RBC Qn Auto 29.5 pg Normal 5 27 - 31 [facility]CT Eosinophil/leuk NFr Bld Auto 1.8 % Normal 5 [facility]CT Hct VFr Bld Auto 40.0 % Normal 5 35 - 47 [facility] nRBC/100 WBC Bld Auto-Rto 0.8 /100 WBC Above high normal 5 0 - 0.1 [facility]CT Neutrophils num Bld Auto 4.65 Thou/uL Normal 5 2 - 7.5 [facility]CT PMV Bld Auto 11.1 fL Normal 5 7.5 - 12.5 [facility]CT RDW RBC Auto-Rto 18.3 % Above high normal 5 11.5 - 14.5 [facility]CT Basophils/leuk NFr Bld Auto 0.5 % Normal 5 H[facility] pro BNP, N-terminal >14783.0 pg/mL Above high normal 5 - 125 [facility]CT Lipase SerPl-cCnc 30.0 U/L Normal 5 13 - 60 [facility]CT ALT SerPl-cCnc 11.0 U/L Normal 5 10 - 50 [facility] Albumin/Glob SerPl 1.5 Ratio Normal 5 1 - 3 [facility]CT Anion Gap Bld-sCnc 18.0 Above high normal 08/30 5 7 - 17 [facility] BUN/Creat SerPl 5.0 Ratio Below low normal 09/16/19 2 5 10 - 25 [facility]CT Bilirub SerPl-mCnc 1.1 mg/dL Above high normal 08/30 5 0.2 - 1 [facility]CT Calcium SerPl-mCnc 9.9 mg/dL Normal 5 8.7 - 10.5 HHCCT Prot SerPl-mCnc 6.9 g/dL Normal 5 6.3 - 8.3 HHCCT BUN SerPl-mCnc 43.0 mg/dL Above high normal 09/16/19 2 5 8 - 21 [facility]CT GFR/BSA.pred SerPlBld [id number] 4.0 Below low normal 5 59 - HHCCT AST SerPl-cCnc 13.0 U/L Normal 5 10 - 50 [facility]CT Potassium SerPl-sCnc 4.9 mmol/L Normal 5 3.4 - 5.3 [facility]CT Globulin Ser Calc-mCnc 2.8 g/dL Normal 5 1.5 - 3.9 [facility]CT Chloride SerPl-sCnc 102.0 mmol/L Normal 5 98 - 107 [facility]CT ALP SerPl-cCnc 54.0 U/L Normal 5 32 - 122 [facility]CT Albumin SerPl-mCnc 4.1 g/dL Normal 5 3.5 - 5 [facility] CO2 SerPl-sCnc 26.0 mmol/L Normal 5 22 - 33 [facility]CT Sodium SerPl-sCnc 146.0 mmol/L Above high normal 09/15 5 136 - 145 [facility]CT Glucose SerPl-mCnc 100.0 mg/dL Above high normal 08/30 5 65 - 99 [facility]CT Creat SerPl-mCnc 9.3 mg/dL Above high normal 5 0.4 - 1.1 HHCCT INR PPP 2.1 Normal 5 H[facility]CT Prothrombin time 24.4 seconds Above high normal 5 10 - 13.5 [facility]CT Anticoagulant APIXABAN (ELIQUIS) Normal 09/16/19 2 5 [facility]CT MCH RBC Qn Auto 28.9 pg Normal 5 27 - 31 [facility]CT Basophils/leuk NFr Bld Auto 0.5 % Normal 5 [facility]CT Eosinophil/leuk NFr Bld Auto 1.4 % Normal 5 [facility]CT Lymphocytes num Bld Auto 2.51 Thou/uL Normal 5 1.5 - 4.5 HHCCT Eosinophil num Bld Auto 0.11 Thou/uL Normal 5 0 - 0.7 [facility]CT RDW RBC Auto-Rto 16.9 % Above high normal 5 11.5 - 14.5 [facility]CT Platelet num Bld Auto 255.0 Thou/uL Normal 5 150 - 450 [facility]CT Neutrophils num Bld Auto 4.35 Thou/uL Normal 5 2 - 7.5 HHCCT MCV RBC Auto 97.0 fL Normal 5 80 - 100 [facility]CT Monocytes num Bld Auto 0.64 Thou/uL Normal 5 0.2 - 1.5 HHCCT WBC num Bld Auto 7.7 Thou/uL Normal 5 4 - 11 [facility]CT Lymphocytes/leuk NFr Bld Auto 32.7 % Normal 5 HHCCT Basophils num Bld Auto 0.04 Thou/uL Normal 5 0 - 0.2 HHCCT RBC num Bld Auto 3.67 Mil/uL Below low normal 02 5 4 - 5.4 [facility]CT PMV Bld Auto 10.5 fL Normal 5 7.5 - 12.5 [facility]CT Monocytes/leuk NFr Bld Auto 8.3 % Normal 5 [facility]CT Hgb Bld-mCnc 10.6 g/dL Below low normal 5 11.7 - 15.7 HHCCT Hct VFr Bld Auto 35.6 % Normal 5 35 - 47 [facility]CT MCHC RBC Auto-mCnc 29.8 g/dL Below low normal 09/15 5 30 - 36 [facility]CT Neutrophils/leuk NFr Bld Auto 56.7 % Normal 5 [facility]CT Imm Granulocytes num Bld Auto 0.03 Thou/uL Normal 5 0 - 0.1 [facility]CT Imm Granulocytes/leuk NFr Bld Auto 0.4 % Normal 5 [facility]CT HBV surface Ag Ser Ql Nonreactive Normal 5 - HHCCT Phosphate SerPl-mCnc 6.4 mg/dL Above high normal 5 2.7 - 4.5 HHCCT Potassium SerPl-sCnc 4.7 mmol/L Normal 5 3.4 - 5.3 HHCCT BUN SerPl-mCnc 63.0 mg/dL Above high normal 08/05/19 2 5 8 - 21 [facility]CT BUN/Creat SerPl 5.0 Ratio Below low normal 08/05/19 2 5 10 - 25 [facility]CT Calcium SerPl-mCnc 9.2 mg/dL Normal 5 8.7 - 10.5 [facility]CT Glucose SerPl-mCnc 124.0 mg/dL Above high normal 5 65 - 99 [facility]CT Sodium SerPl-sCnc 140.0 mmol/L Normal 5 136 - 145 [facility]CT GFR/BSA.pred SerPlBld [id number]-AuGXkl 3.0 Below low normal 5 59 - [facility]HCCT Albumin SerPl-mCnc 3.9 g/dL Normal 5 3.5 - 5 [facility]HCCT Chloride SerPl-sCnc 98.0 mmol/L Normal 5 98 - 107 [facility]CT Creat SerPl-mCnc 11.9 mg/dL Above high normal 5 0.4 - 1.1 [facility]CT CO2 SerPl-sCnc 22.0 mmol/L Normal 5 22 - 33 [facility] Platelet num Bld Auto 189.0 Thou/uL Normal 5 150 - 450 [facility]CT MCH RBC Qn Auto 29.2 pg Normal 5 27 - 31 [facility]CT RDW RBC Auto-Rto 15.0 % Above high normal 5 11.5 - 14.5 HHCCT PMV Bld Auto 10.9 fL Normal 5 7.5 - 12.5 [facility]HCCT MCV RBC Auto 91.0 fL Normal 5 80 - 100 [facility]CT WBC num Bld Auto 6.7 Thou/uL Normal 5 4 - 11 H[facility]CT Hct VFr Bld Auto 30.3 % Below low normal 02 5 35 - 47 [facility]CT MCHC RBC Auto-mCnc 32.0 g/dL Normal 5 30 - 36 [facility]CT Hgb Bld-mCnc 9.7 g/dL Below low normal 5 11.7 - 15.7 HHCCT RBC num Bld Auto 3.32 Mil/uL Below low normal 02 5 4 - 5.4 HHCCT Phosphate SerPl-mCnc 6.5 mg/dL Above high normal 5 2.7 - 4.5 HHCCT Magnesium SerPl-mCnc 2.7 mg/dL Normal 5 1.6 - 2.7 HHCCT Creat SerPl-mCnc 11.7 mg/dL Above high normal 5 0.4 - 1.1 H[facility]CT CO2 SerPl-sCnc 24.0 mmol/L Normal 5 22 - 33 HHCCT Anion Gap Bld-sCnc 17.0 Normal 5 7 - 17 [facility]CT Glucose SerPl-mCnc 124.0 mg/dL Above high normal 5 65 - 99 HHCCT Calcium SerPl-mCnc 9.1 mg/dL Normal 5 8.7 - 10.5 HHCCT GFR/BSA.pred SerPlBld [id number]-GmYPnd 3.0 Below low normal 5 59 - HHCCT BUN/Creat SerPl 5.0 Ratio Below low normal 08/05/19 2 5 10 - 25 [facility]HCCT BUN SerPl-mCnc 60.0 mg/dL Above high normal 08/05/19 2 5 8 - 21 HHCCT Sodium SerPl-sCnc 140.0 mmol/L Normal 5 136 - 145 HHCCT Chloride SerPl-sCnc 99.0 mmol/L Normal 5 98 - 107 HHCCT Potassium SerPl-sCnc 4.6 mmol/L Normal 5 3.4 - 5.3 HHCCT Ca-I SerPl-mCnc 1.1 mmol/L Below low normal 08/05/19 2 5 1.17 - 1.33 HHCCT WBC num Bld Auto 6.8 Thou/uL Normal 5 4 - 11 [facility]CT RBC num Bld Auto 3.31 Mil/uL Below low normal 02 5 4 - 5.4 [facility]CT Platelet num Bld Auto 178.0 Thou/uL Normal 5 150 - 450 HHCCT Hct VFr Bld Auto 30.9 % Below low normal 02 5 35 - 47 [facility]CT MCHC RBC Auto-mCnc 31.4 g/dL Normal 5 30 - 36 [facility]CT MCH RBC Qn Auto 29.3 pg Normal 5 27 - 31 HHCCT RDW RBC Auto-Rto 14.9 % Above high normal 5 11.5 - 14.5 HHCCT MCV RBC Auto 93.0 fL Normal 5 80 - 100 [facility]CT PMV Bld Auto 10.5 fL Normal 5 7.5 - 12.5 HHCCT Hgb Bld-mCnc 9.7 g/dL Below low normal 5 11.7 - 15.7 HHCCT ISTAT Hemoglobin 11.2 gm/dL Below low normal 02 5 11.7 - 15.7 [facility] ISTAT Hematocrit 33.0 % Below low normal 02 5 35 - 47 [facility]HCCT ISTAT Potassium 3.9 mmol/L Normal 5 3.4 - 5.3 HHCCT CO2 SerPl-sCnc 25.0 mmol/L Normal 4 22 - 33 HHCCT BUN SerPl-mCnc 57.0 mg/dL Above high normal 03/26/20 2 4 8 - 21 HHCCT Glucose SerPl-mCnc 141.0 mg/dL Above high normal 03/03 4 65 - 99 HHCCT Creat SerPl-mCnc 9.7 mg/dL Above high normal 4 0.4 - 1.1 HHCCT GFR/BSA.pred SerPlBld [id number] 4.0 Below low normal 4 59 - HHCCT BUN/Creat SerPl 6.0 Ratio Below low normal 03/26/20 2 4 10 - 25 HHCCT Calcium SerPl-mCnc 9.7 mg/dL Normal 4 8.7 - 10.5 HHCCT Anion Gap Bld-sCnc 17.0 Normal 4 7 - 17 H[facility]CT Chloride SerPl-sCnc 99.0 mmol/L Normal 4 98 - 107 H[facility]CT Sodium SerPl-sCnc 141.0 mmol/L Normal 4 136 - 145 HHCCT Potassium SerPl-sCnc 5.5 mmol/L Above high normal 4 3.4 - 5.3 HHCCT Magnesium SerPl-mCnc 2.7 mg/dL Normal 4 1.6 - 2.7 HHCCT Phosphate SerPl-mCnc 5.6 mg/dL Above high normal 4 2.7 - 4.5 HHCCT PMV Bld Auto 10.5 fL Normal 4 7.5 - 12.5 [facility]HCCT MCH RBC Qn Auto 30.4 pg Normal 4 27 - 31 HHCCT MCV RBC Auto 95.0 fL Normal 4 80 - 100 H[facility]CT Monocytes num Bld Auto 0.71 Thou/uL Normal 4 0.2 - 1.5 HHCCT Eosinophil/leuk NFr Bld Auto 2.9 % Normal 4 [facility]CT Lymphocytes/leuk NFr Bld Auto 25.9 % Normal 4 [facility] Imm Granulocytes/leuk NFr Bld Auto 0.3 % Normal 4 [facility] Hgb Bld-mCnc 9.9 g/dL Below low normal 4 11.7 - 15.7 [facility] RBC num Bld Auto 3.26 Mil/uL Below low normal 02 4 4 - 5.4 [facility] Neutrophils num Bld Auto 5.87 Thou/uL Normal 4 2 - 7.5 [facility] Imm Granulocytes num Bld Auto 0.03 Thou/uL Normal 4 0 - 0.1 [facility] WBC num Bld Auto 9.3 Thou/uL Normal 4 4 - 11 [facility] Neutrophils/leuk NFr Bld Auto 63.0 % Normal 4 [facility] Platelet num Bld Auto 250.0 Thou/uL Normal 4 150 - 450 [facility] RDW RBC Auto-Rto 12.7 % Normal 4 11.5 - 14.5 [facility] Hct VFr Bld Auto 30.9 % Below low normal 02 4 35 - 47 [facility] MCHC RBC Auto-mCnc 32.0 g/dL Normal 4 30 - 36 [facility] Monocytes/leuk NFr Bld Auto 7.6 % Normal 4 [facility] Eosinophil num Bld Auto 0.27 Thou/uL Normal 4 0 - 0.7 [facility] Lymphocytes num Bld Auto 2.42 Thou/uL Normal 4 1.5 - 4.5 [facility] Basophils/leuk NFr Bld Auto 0.3 % Normal 4 [facility] Basophils num Bld Auto 0.03 Thou/uL Normal 4 0 - 0.2 [facility] HBV surface Ag Ser Ql Nonreactive Normal 4 - [facility] WBC num/area UrnS HPF 0.0 per hpf Normal 4 0 - 4 [facility] RBC num/area UrnS HPF 0.0 per hpf Normal 4 0 - 4 [facility] Squamous num/area UrnS HPF 1.0 PER HPF Normal 4 [facility] Leukocyte esterase Ur Ql Strip Negative Normal 4 - [facility] pH Ur Strip 9.0 Above high normal 4 5 - 8 [facility] Bilirub Ur Strip-mCnc Negative Normal 4 - [facility] Glucose Ur Strip-mCnc 150.0 mg/dL Above high normal 4 0 - 99 [facility] Sp Gr Ur Strip 1.01 Normal 4 1.003 - 1.03 [facility] Prot Ur Strip-mCnc Moderate (100 mg/dL) Abnormal 4 - [facility] Color Ur Straw Normal 4 [facility] Clarity Ur Clear Normal 4 [facility] Ketones Ur Strip-mCnc Negative Normal 4 - [facility] Hgb Ur Ql Strip Negative Normal 4 - [facility] Nitrite Ur Ql Strip Negative Normal 4 - [facility] FLUBV RNA Nph Ql Non-probe PCR Not Detected Normal 4 [facility] HPIV2 RNA Nph Ql Non-probe PCR Not Detected Normal 4 [facility] HPIV4 RNA Nph Ql Non-probe PCR Not Detected Normal 4 [facility] Bordetella parapertussis Not Detected Normal 4 [facility] HPIV3 RNA Nph Ql Non-probe PCR Not Detected Normal 4 [facility] HCoV HKU1 RNA Nph Ql Non-probe PCR Not Detected Normal 4 [facility] HCoV 229E RNA Nph Ql Non-probe PCR Not Detected Normal 4 [facility] HCoV OC43 RNA Nph Ql Non-probe PCR Not Detected Normal 4 [facility] M pneumo DNA Nph Ql Non-probe PCR Not Detected Normal 4 [facility] B pert tox prom reg Nph Ql Non-probe PCR Not Detected Normal 4 [facility] HPIV1 RNA Nph Ql Non-probe PCR Not Detected Normal 4 [facility] 2019-nCOV RNA Not Detected Normal 4 [facility] HAdV DNA Nph Ql Non-probe PCR Not Detected Normal 4 [facility] RV+EV RNA Nph Ql Non-probe PCR Not Detected Normal 4 [facility] C pneum DNA Nph Ql Non-probe PCR Not Detected Normal 4 [facility] hMPV RNA Nph Ql Non-probe PCR Not Detected Normal 4 [facility] RSV RNA Nph Ql Non-probe PCR Not Detected Normal 4 [facility] HCoV NL63 RNA Nph Ql Non-probe PCR Not Detected Normal 4 [facility] FLUAV RNA Nph Ql Non-probe PCR Not Detected Normal 4 [facility] 2019-nCOV RNA Not Detected Normal 4 CCT Specimen source XXX Nasopharyngeal Normal 4 [facility] CK SerPl-cCnc 82.0 U/L Normal 4 24 - 173 [facility] Lipase SerPl-cCnc 38.0 U/L Normal 4 13 - 60 [facility] Bilirub SerPl-mCnc 0.7 mg/dL Normal 4 0.2 - 1 [facility] GFR/BSA.pred SerPlBld [id number] 3.0 Below low normal 4 59 - [facility] ALP SerPl-cCnc 41.0 U/L Normal 4 32 - 122 [facility] Anion Gap Bld-sCnc 17.0 Normal 4 7 - 17 [facility] Albumin SerPl-mCnc 4.2 g/dL Normal 4 3.5 - 5 [facility] Potassium SerPl-sCnc 6.2 mmol/L Critically high 4 3.4 - 5.3 [facility] Glucose SerPl-mCnc 118.0 mg/dL Above high normal 03/03 4 65 - 99 [facility] Creat SerPl-mCnc 12.9 mg/dL Above high normal 4 0.4 - 1.1 [facility] Calcium SerPl-mCnc 9.8 mg/dL Normal 4 8.7 - 10.5 [facility] Sodium SerPl-sCnc 135.0 mmol/L Below low normal 4 136 - 145 [facility] Globulin Ser Calc-mCnc 2.8 g/dL Normal 4 1.5 - 3.9 [facility] BUN SerPl-mCnc 76.0 mg/dL Above high normal 03/25/20 2 4 8 - 21 [facility] ALT SerPl-cCnc 18.0 U/L Normal 4 10 - 50 [facility] Albumin/Glob SerPl 1.5 Ratio Normal 4 1 - 3 [facility] Chloride SerPl-sCnc 96.0 mmol/L Below low normal 4 98 - 107 [facility] CO2 SerPl-sCnc 22.0 mmol/L Normal 4 22 - 33 [facility] AST SerPl-cCnc 19.0 U/L Normal 4 10 - 50 [facility] BUN/Creat SerPl 6.0 Ratio Below low normal 03/25/20 2 4 10 - 25 [facility] Prot SerPl-mCnc 7.0 g/dL Normal 4 6.3 - 8.3 [facility] Neutrophils num Bld Auto 9.53 Thou/uL Above high normal 4 2 - 7.5 [facility] MCHC RBC Auto-mCnc 32.4 g/dL Normal 4 30 - 36 [facility] Imm Granulocytes/leuk NFr Bld Auto 0.5 % Normal 4 [facility] MCV RBC Auto 94.0 fL Normal 4 80 - 100 [facility] Imm Granulocytes num Bld Auto 0.06 Thou/uL Normal 4 0 - 0.1 [facility] Eosinophil num Bld Auto 0.08 Thou/uL Normal 4 0 - 0.7 [facility] Monocytes/leuk NFr Bld Auto 6.8 % Normal 4 [facility] Lymphocytes num Bld Auto 2.03 Thou/uL Normal 4 1.5 - 4.5 [facility] Eosinophil/leuk NFr Bld Auto 0.6 % Normal 4 [facility] WBC num Bld Auto 12.6 Thou/uL Above high normal 4 4 - 11 [facility] Lymphocytes/leuk NFr Bld Auto 16.1 % Normal 4 [facility] Monocytes num Bld Auto 0.85 Thou/uL Normal 4 0.2 - 1.5 [facility] Platelet num Bld Auto 223.0 Thou/uL Normal 4 150 - 450 [facility] Neutrophils/leuk NFr Bld Auto 75.7 % Normal 4 [facility] Hgb Bld-mCnc 9.1 g/dL Below low normal 4 11.7 - 15.7 [facility] RDW RBC Auto-Rto 12.7 % Normal 4 11.5 - 14.5 [facility] Basophils/leuk NFr Bld Auto 0.3 % Normal 4 [facility] PMV Bld Auto 10.3 fL Normal 4 7.5 - 12.5 [facility] MCH RBC Qn Auto 30.3 pg Normal 4 27 - 31 [facility] Hct VFr Bld Auto 28.1 % Below low normal 02 4 35 - 47 [facility] RBC num Bld Auto 3.0 Mil/uL Below low normal 02 4 4 - 5.4 [facility] Basophils num Bld Auto 0.04 Thou/uL Normal 4 0 - 0.2 [facility] HBV surface Ag Ser Ql Nonreactive Normal 4 - [facility] Glucose SerPl-mCnc 86.0 mg/dL Normal 4 65 - 99 [facility] Creat SerPl-mCnc 11.5 mg/dL Above high normal 4 0.4 - 1.1 [facility] Calcium SerPl-mCnc 8.8 mg/dL Normal 4 8.7 - 10.5 [facility] BUN SerPl-mCnc 68.0 mg/dL Above high normal 02/09/20 2 4 8 - 21 [facility] Chloride SerPl-sCnc 96.0 mmol/L Below low normal 4 98 - 107 [facility] Sodium SerPl-sCnc 139.0 mmol/L Normal 4 136 - 145 [facility] BUN/Creat SerPl 6.0 Ratio Below low normal 02/09/20 2 4 10 - 25 [facility] CO2 SerPl-sCnc 25.0 mmol/L Normal 4 22 - 33 [facility] Potassium SerPl-sCnc 4.7 mmol/L Normal 4 3.4 - 5.3 [facility] Phosphate SerPl-mCnc 8.1 mg/dL Above high normal 4 2.7 - 4.5 [facility] Albumin SerPl-mCnc 3.6 g/dL Normal 4 3.5 - 5 [facility] GFR/BSA.pred SerPlBld MOR-SQO-UlQPup 4.0 Below low normal 4 59 - [facility] Imm Granulocytes num Bld Auto 0.02 Thou/uL Normal 4 0 - 0.1 [facility] WBC num Bld Auto 6.5 Thou/uL Normal 4 4 - 11 [facility] Hct VFr Bld Auto 34.5 % Below low normal 02 4 35 - 47 [facility] MCH RBC Qn Auto 30.2 pg Normal 4 27 - 31 [facility] Neutrophils/leuk NFr Bld Auto 58.4 % Normal 4 [facility] Platelet num Bld Auto 203.0 Thou/uL Normal 4 150 - 450 [facility] Monocytes/leuk NFr Bld Auto 9.4 % Normal 4 [facility] Lymphocytes/leuk NFr Bld Auto 27.3 % Normal 4 [facility] Eosinophil/leuk NFr Bld Auto 4.1 % Normal 4 [facility] Eosinophil num Bld Auto 0.27 Thou/uL Normal 4 0 - 0.7 [facility] Neutrophils num Bld Auto 3.8 Thou/uL Normal 4 2 - 7.5 [facility] Monocytes num Bld Auto 0.61 Thou/uL Normal 4 0.2 - 1.5 [facility] Basophils num Bld Auto 0.03 Thou/uL Normal 4 0 - 0.2 [facility] MCV RBC Auto 91.0 fL Normal 4 80 - 100 [facility] PMV Bld Auto 10.5 fL Normal 4 7.5 - 12.5 [facility] Lymphocytes num Bld Auto 1.78 Thou/uL Normal 4 1.5 - 4.5 [facility] Hgb Bld-mCnc 11.5 g/dL Below low normal 4 11.7 - 15.7 [facility] Imm Granulocytes/leuk NFr Bld Auto 0.3 % Normal 4 [facility] Basophils/leuk NFr Bld Auto 0.5 % Normal 4 [facility] RBC num Bld Auto 3.81 Mil/uL Below low normal 02 4 4 - 5.4 [facility] MCHC RBC Auto-mCnc 33.3 g/dL Normal 4 30 - 36 [facility] RDW RBC Auto-Rto 12.7 % Normal 4 11.5 - 14.5 [facility] Potassium SerPl-sCnc 4.5 mmol/L Normal 4 3.4 - 5.3 [facility] BUN/Creat SerPl 6.0 Ratio Below low normal 02/09/20 2 4 10 - 25 [facility] Creat SerPl-mCnc 11.5 mg/dL Above high normal 4 0.4 - 1.1 [facility] Sodium SerPl-sCnc 139.0 mmol/L Normal 4 136 - 145 [facility] Glucose SerPl-mCnc 106.0 mg/dL Above high normal 01/30 4 65 - 99 [facility] Anion Gap Bld-sCnc 19.0 Above high normal 01/30 4 7 - 17 [facility] Calcium SerPl-mCnc 8.8 mg/dL Normal 4 8.7 - 10.5 [facility] GFR/BSA.pred SerPlBld [id number]-[id number] 4.0 Below low normal 4 59 - [facility]CT Chloride SerPl-sCnc 97.0 mmol/L Below low normal 4 98 - 107 [facility] CO2 SerPl-sCnc 23.0 mmol/L Normal 4 22 - 33 [facility] BUN SerPl-mCnc 67.0 mg/dL Above high normal 02/09/20 2 4 8 - 21 [facility] Magnesium SerPl-mCnc 2.5 mg/dL Normal 4 1.6 - 2.7 [facility] Phosphate SerPl-mCnc 8.1 mg/dL Above high normal 4 2.7 - 4.5 [facility] Neutrophils num Bld Auto 3.0 Thou/uL Normal 4 2 - 7.5 [facility] Monocytes num Bld Auto 0.56 Thou/uL Normal 4 0.2 - 1.5 [facility] Lymphocytes num Bld Auto 1.57 Thou/uL Normal 4 1.5 - 4.5 [facility] MCH RBC Qn Auto 30.1 pg Normal 4 27 - 31 [facility] WBC num Bld Auto 5.4 Thou/uL Normal 4 4 - 11 [facility] Hct VFr Bld Auto 34.9 % Below low normal 02 4 35 - 47 [facility] Basophils/leuk NFr Bld Auto 0.4 % Normal 4 [facility] RBC num Bld Auto 3.82 Mil/uL Below low normal 02 4 4 - 5.4 [facility] RDW RBC Auto-Rto 12.7 % Normal 4 11.5 - 14.5 [facility] Imm Granulocytes num Bld Auto 0.02 Thou/uL Normal 4 0 - 0.1 [facility] Hgb Bld-mCnc 11.5 g/dL Below low normal 4 11.7 - 15.7 [facility]CT MCHC RBC Auto-mCnc 33.0 g/dL Normal 4 30 - 36 [facility] Monocytes/leuk NFr Bld Auto 10.3 % Normal 4 [facility] Lymphocytes/leuk NFr Bld Auto 28.9 % Normal 4 [facility] Basophils num Bld Auto 0.02 Thou/uL Normal 4 0 - 0.2 [facility] Neutrophils/leuk NFr Bld Auto 55.0 % Normal 4 [facility] MCV RBC Auto 91.0 fL Normal 4 80 - 100 [facility] Eosinophil/leuk NFr Bld Auto 5.0 % Normal 4 [facility] PMV Bld Auto 10.3 fL Normal 4 7.5 - 12.5 [facility] Eosinophil num Bld Auto 0.27 Thou/uL Normal 4 0 - 0.7 [facility] Platelet num Bld Auto 191.0 Thou/uL Normal 4 150 - 450 [facility] Imm Granulocytes/leuk NFr Bld Auto 0.4 % Normal 4 [facility] Ca-I SerPl-mCnc 1.07 mmol/L Below low normal 02/09/20 2 4 1.17 - 1.33 [facility] GFR/BSA.pred SerPlBld [id number]-[id number] 4.0 Below low normal 4 59 - [facility] Creat SerPl-mCnc 10.0 mg/dL Above high normal 4 0.4 - 1.1 [facility] Glucose SerPl-mCnc 94.0 mg/dL Normal 4 65 - 99 [facility] Anion Gap Bld-sCnc 17.0 Normal 4 7 - 17 [facility] BUN/Creat SerPl 6.0 Ratio Below low normal 02/09/20 2 4 10 - 25 [facility] Sodium SerPl-sCnc 138.0 mmol/L Normal 4 136 - 145 [facility] Chloride SerPl-sCnc 97.0 mmol/L Below low normal 4 98 - 107 [facility] Calcium SerPl-mCnc 8.9 mg/dL Normal 4 8.7 - 10.5 [facility] CO2 SerPl-sCnc 24.0 mmol/L Normal 4 22 - 33 [facility] Potassium SerPl-sCnc 4.4 mmol/L Normal 4 3.4 - 5.3 [facility] BUN SerPl-mCnc 56.0 mg/dL Above high normal 02/09/20 2 4 8 - 21 [facility] Magnesium SerPl-mCnc 2.4 mg/dL Normal 4 1.6 - 2.7 [facility] Phosphate SerPl-mCnc 6.3 mg/dL Above high normal 4 2.7 - 4.5 [facility] Hgb Bld-mCnc 11.8 g/dL Normal 4 11.7 - 15.7 [facility] Hct VFr Bld Auto 34.8 % Below low normal 02 4 35 - 47 [facility] WBC num Bld Auto 7.0 Thou/uL Normal 4 4 - 11 [facility] RDW RBC Auto-Rto 12.9 % Normal 4 11.5 - 14.5 [facility] RBC num Bld Auto 3.8 Mil/uL Below low normal 02 4 4 - 5.4 [facility]CT MCHC RBC Auto-mCnc 33.9 g/dL Normal 4 30 - 36 [facility] PMV Bld Auto 10.2 fL Normal 4 7.5 - 12.5 [facility] MCH RBC Qn Auto 31.1 pg Above high normal 02 4 27 - 31 [facility] Platelet num Bld Auto 222.0 Thou/uL Normal 4 150 - 450 [facility] MCV RBC Auto 92.0 fL Normal 4 80 - 100 [facility] Ca-I SerPl-mCnc 1.11 mmol/L Below low normal 02/09/20 2 4 1.17 - 1.33 [facility] ISTAT Glucose 106.0 mg/dL Above high normal 4 65 - 99 [facility] ISTAT Potassium 4.3 mmol/L Normal 4 3.4 - 5.3 [facility] History of Medication Use Medication Directions Dispensed Refills Start Date End Date Stat us alteplase (CATHFLO ACTIVASE) injection As needed, Starting on Sun03/25/25 at 1244, Intraprocedure 03/25/2025 03/25/20 completed fentaNYL (PF) (SUBLIMAZE) injection intravenous, As needed, Starting on Sun03/25/25 at 1233, Intraprocedure 03/25/2025 03/25/20 completed heparin (UFH) injection intravenous, As needed, Starting on Sun03/25/25 at 1306, Intraprocedure 03/25/2025 03/25/20 completed midazolam (VERSED) injection intravenous, As needed, Starting on Sun03/25/25 at 1233, Intraprocedure 03/25/2025 03/25/20 completed sodium chloride 0.9 % infusion intravenous, Continuous PRN, Starting on Sun03/25/25 at 1233, Intraprocedure 03/25/2025 03/25/20 completed iopamidoL (ISOVUE-300) 300 mg iodine /mL (61 %) solution 80 mL 80 mL, Other, Once in imaging, Starting on Sun03/25/25 at 1319, For 1 dose 03/25/2025 active metoprolol succinate (TOPROL-XL) 100 mg 24 hr tablet Take 1 tablet (100 mg total) by mouth. 03/11/2025 active metoPROLOL SUCCINATE (TOPROL-XL) 100 MG 24 hr tablet Take 1 tablet (100 mg total) by mouth daily. Do not start before March 11, 2025. 03/11/2025 active metoprolol succinate XL (TOPROL-XL) 100 mg 24 hr tablet 03/11/2025 active carvedilol (COREG) 6.25 MG tablet Take 1 tablet (6.25 mg total) by mouth 2 (two) times a day with meals. 03/04/2025 active mirtazapine (REMERON) 15 mg tablet 02/27/2025 active mirtazapine (REMERON) 15 mg tablet 02/27/2025 active clotrimazole-betamet hasone (LOTRISONE) 1-0.05 % cream APPLY TOPICALLY TO THE AFFECTED AREA TWICE DAILY FOR 7 DAYS 02/24/2025 active carvedilol (COREG) 25 MG tablet Take 1 tablet (25 mg total) by mouth 2 (two) times a day with meals. 02/17/2025 active aluminum-magnesium hydroxide-simethicon e (MYLANTA) suspension Take 5 mL by mouth 4 times daily (every 6 hours) as needed for indigestion or heartburn. 02/03/2025 active pantoprazole (PROTONIX) 40 mg EC tablet Take 1 tablet (40 mg total) by mouth 1 (one) time each day. 02/03/2025 active PANTOprazole (PROTONIX) 40 MG EC tablet Take 1 tablet (40 mg total) by mouth daily. 02/03/2025 active pantoprazole (PROTONIX) 40 mg tablet Take 1 tablet (40 mg total) by mouth daily. 02/03/2025 active mexiletine (MEXITIL) 150 mg capsule 02/02/2025 active HYDROmorphone (DILAUDID) 2 mg tablet 01/27/2025 active acetaminophen (TYLENOL) 325 mg tablet Take 2 tablets (650 mg total) by mouth every 6 hours as needed. 01/22/2025 active hydrocerin (EUCERIN) cream Apply topically 2 (two) times a day. 01/22/2025 active sodium zirconium cyclosilicate (LOKELMA) 10 g packet Take 1 packet (10 g total) by mouth daily. 01/22/2025 active sodium zirconium cyclosilicate (LOKELMA) 10 gram packet Take 10 g by mouth. 01/22/2025 activ e white petrolatum 61 % Crea Apply topically 2 (two) times daily. 01/22/2025 active thiamine mononitrate (VITAMIN B-1) 100 MG tablet Take 1 tablet (100 mg total) by mouth daily. 01/14/2025 active tamsulosin (FLOMAX) 0.4 mg 24 hr capsule TAKE 1 CAPSULE (0.4 MG) BY ORAL ROUTE ONCE DAILY 1/2 HOUR FOLLOWING THE SAME MEAL EACH DAY 01/13/2025 active thiamine mononitrate, vit B1, 100 mg tablet 01/13/2025 active thiamine mononitrate, vit B1, 100 mg tablet 01/13/2025 active augmented betamethasone dipropionate (DIPROLENE-AF) 0.05 % ointment 12/30/2024 active ELIQUIS 5 mg Tab tablet Take 1 tablet (5 mg total) by mouth every 12 (twelve) hours. 12/30/2024 active mupirocin (BACTROBAN) 2 % ointment APPLY TOPICALLY TO OPEN AREAS OF THE SKIN 2-3 TIMES DAILY UNTIL HEALED 12/29/2024 active nemolizumab-ilto (Nemluvio) 30 mg pen injector Inject 60 mg (2 injections) under the skin once. 12/29/2024 active nemolizumab-ilto (NEMLUVIO) 30 mg PnIj Inject 60 mg (2 injections) under the skin once. 12/29/2024 active nemolizumab-ilto (Nemluvio) 30 mg subcutaneous auto-injector Inject 60 mg (2 injections) under the skin once. 12/29/2024 active finasteride (PROSCAR) 5 mg tablet 12/17/2024 active hydrocortisone (ANUSOL-HC) 2.5 % rectal cream Insert into the rectum 3 (three) times a day as needed for hemorrhoids. 12/16/2024 active carvediloL (COREG) 12.5 mg Immediate Release tablet 12/07/2024 active clobetasol (TEMOVATE) 0.05 % ointment Apply topically 2 (two) times a day. Avoid using for more than 2 weeks at a time. 11/18/2024 active clobetasoL (TEMOVATE) 0.05 % ointment Apply topically. 11/18/2024 active hydrOXYzine (ATARAX) 25 mg tablet Take 1 tablet (25 mg total) by mouth. 11/18/2024 active hydrOXYzine HCl (ATARAX) 25 MG tablet Take 1 tablet (25 mg total) by mouth 4 times daily (every 6 hours) as needed for itching. 11/18/2024 active hydrOXYzine HCL (ATARAX) 25 mg tablet Take 1 tablet (25 mg total) by mouth. 11/18/2024 active vitamin B complex-vitamin C-folic acid (NEPHRO-KAEL) 0.8 MG Tab tablet Take 1 tablet by mouth daily. 11/05/2024 active mexiletine (MEXITIL) 150 mg capsule 11/04/2024 active JORGE LUIS-KAEL 0.8 mg tablet Take 1 tablet by mouth daily. 11/04/2024 active torsemide (DEMADEX) 100 mg tablet Take 1 tablet (100 mg total) by mouth daily. 10/29/2024 active torsemide (DEMADEX) 100 mg tablet Take 1 tablet (100 mg total) by mouth 1 (one) time each day. 10/29/2024 active torsemide (DEMADEX) 100 MG tablet Take 1 tablet (100 mg total) by mouth daily. 10/29/2024 active hydrocortisone 1 % ointment Apply topically 2 (two) times a day. 10/28/2024 active hydrocortisone 1 % ointment Apply topically 2 (two) times daily. 10/28/2024 active phenyleph-min oil-petrolatum (PREPARATION-H) 0.25-14-74.9 % rectal ointment Place 1 each rectally. 10/28/2024 active phenylephrine (PREPARATION H) 0.25-14-74.9 % Ointment topical rectal ointment Insert 1 each into the rectum 4 (four) times a day as needed for hemorrhoids. 10/28/2024 active furosemide (LASIX) 20 mg tablet 10/25/2024 active Entresto 24 mg-26 mg tablet Take 1 tablet twice a day by oral route for 90 days. 10/14/2024 active Entresto 24-26 mg per tablet Take 1 tablet by mouth 2 (two) times a day. 10/14/2024 active Entresto 24-26 MG per tablet 1 tablet by Mouth/Oral Cavity route every 12 hours. 10/14/2024 active ENTRESTO 24-26 mg tablet Take 1 tablet by mouth. 10/14/2024 active cyanocobalamin (VITAMIN B-12) 2000 MCG tablet Take 1 tablet (2,000 mcg total) by mouth daily. 10/04/2024 active cyanocobalamin, vitamin B-12, 2,000 mcg Tab Take 2,000 mcg by mouth. 10/04/2024 active buPROPion (WELLBUTRIN) 100 mg tablet Take 1 tablet (100 mg total) by mouth. 10/03/2024 active buPROPion (WELLBUTRIN) 100 MG tablet Take 1 tablet (100 mg total) by mouth 2 (two) times a day. Take 1 tablet in the morning and 1 tablet at 4:00 pm 10/03/2024 active cyanocobalamin (VITAMIN B-12) 1,000 mcg tablet Take 2 tablets (2,000 mcg total) by mouth. 10/03/2024 active cyanocobalamin (VITAMIN B-12) 1000 MCG tablet Take 2 tablets (2,000 mcg total) by mouth. 10/03/2024 active polyethylene glycol (MIRALAX) 17 gram packet 10/03/2024 active saliva substitute (MOUTH KOTE/BIOTENE) Solution Apply 3 sprays to the mouth or throat every 30 (thirty) minutes as needed (dry mouth). 10/03/2024 active sevelamer carbonate (RENVELA) 800 MG tablet Take 2 tablets (1,600 mg total) by mouth nightly. 10/03/2024 active sevelamer carbonate (RENVELA) 800 MG tablet Take 3 tablets (2,400 mg total) by mouth 3 (three) times a day with meals. 10/03/2024 active docusate sodium (COLACE) 100 mg capsule 09/16/2024 active docusate sodium (COLACE) 100 mg capsule 09/16/2024 active melatonin 10 mg Cap Take 10 mg by mouth nightly. 09/07/2024 active melatonin 10 mg capsule Take 1 capsule (10 mg total) by mouth. 09/07/2024 active melatonin 10 MG capsule Take 1 capsule (10 mg total) by mouth nightly. 09/07/2024 active albuterol (PROVENTIL HFA; VENTOLIN HFA) 108 (90 Base) MCG/ACT inhaler Inhale 2 puffs 4 times daily (every 6 hours) as needed for wheezing. 09/06/2024 active albuterol sulfate 90 mcg/actuation HFA aerosol inhaler Inhale 2 puffs into the lungs. 09/06/2024 active benzonatate (TESSALON) 200 mg capsule Take 1 capsule (200 mg total) by mouth 3 (three) times daily as needed for cough. 09/06/2024 active benzonatate (TESSALON) 200 mg capsule Take 1 capsule (200 mg total) by mouth. 09/06/2024 active benzonatate (TESSALON) 200 MG capsule Take 1 capsule (200 mg total) by mouth 3 (three) times a day as needed for cough. 09/06/2024 active DUPIXENT PEN 300 mg/2 mL pen injector 09/03/2024 acti ve sevelamer carbonate (RENVELA) 800 MG tablet TAKE 1 TABLET(800 MG) BY MOUTH THREE TIMES DAILY WITH MEALS 07/09/2024 active tacrolimus (PROTOPIC) 0.1 % ointment Apply 1 Units topically 2 (two) times a day as needed. 05/05/2024 active tacrolimus (PROTOPIC) 0.1 % ointment Apply 1 Units topically. 05/05/2024 active sevelamer (RENVELA) 800 mg tablet Take 3 tablets (2,400 mg total) by mouth. 03/26/2024 active sevelamer carbonate (RENVELA) 800 mg tablet Take 3 tablets (2,400 mg total) by mouth. 03/26/2024 active sevelamer carbonate (RENVELA) 800 MG tablet Take 1 tablet (800 mg total) by mouth 3 (three) times a day with meals. 03/26/2024 active estradiol valerate (DELESTROGEN) 20 MG/ML injection 0.2ml = 4mg subcutaneous weekly 03/14/2024 active HYDROmorphone (DILAUDID) 2 MG tablet Take 1 tablet (2 mg total) by mouth every 4 (four) hours as needed for severe pain. Max Daily Amount: 12 mg 02/09/2024 active ferrous sulfate 325 (65 FE) MG EC tablet Take 1 tablet (325 mg total) by mouth daily. Take 2 hours before or 4 hours after acid reducers. 11/09/2023 12/10/19 active traZODone (DESYREL) 50 MG tablet Take 1 tablet (50 mg total) by mouth nightly as needed for sleep. Do not start before December 21, 2023. 11/08/2023 01/21/20 24 active losartan (COZAAR) 25 mg tablet every morning. 09/18/2023 active losartan (COZAAR) 25 MG tablet every morning. 09/18/2023 active Eliquis 5 mg tablet Take 1 tablet twice a day by oral route for 90 days. 08/24/2023 active apixaban (ELIQUIS) 5 MG tablet Take 1 tablet (5 mg total) by mouth every 12 (twelve) hours around the clock. 05/30/2023 active calcium acetate (PHOSLO) 667 MG capsule TAKE 1 CAPSULE WITH EACH MEAL AND SNACK. 05/30/2023 active Eliquis 5 mg tablet Take 1 tablet (5 mg total) by mouth. 05/30/2023 active famotidine (PEPCID) 20 MG tablet Take 1 tablet (20 mg total) by mouth 2 (two) times a day. 05/03/2023 05/19/20 active Xiidra 5 % Solution Administer 1 drop to both eyes as needed. 03/12/2023 suspended Zinc 50 MG Tab 50 mg every morning. 02/13/2023 active zinc gluconate 50 mg tablet 1 tablet (50 mg total). 02/13/2023 active dupilumab (Dupixent) 300 MG/2ML pen injector Inject 2 mL (300 mg total) under the skin every 14 days (2 weeks). 01/29/2023 08/08/19 aborted dupilumab (Dupixent) 300 MG/2ML pen injector Inject 4 mL (600 mg total) under the skin once. 01/29/2023 active Dupixent Pen 300 mg/2 mL pen 01/29/2023 active betamethasone, augmented, (DIPROLENE) 0.05 % ointment Apply to symptomatic areas of skin twice daily as needed 12/21/2022 08/06/19 24 active buPROPion (WELLBUTRIN) 75 MG tablet TAKE 1 TABLET(75 MG) BY MOUTH TWICE DAILY 12/12/2022 active furosemide (LASIX) 20 MG tablet TAKE 1 TABLET BY MOUTH DAILY 09/14/2022 active ALPRAZolam (XANAX) 1 MG tablet TAKE 1 TABLET BY MOUTH EVERY NIGHT NEEDED FOR ANXIETY OR SLEEP 02/20/2022 suspended buPROPion (WELLBUTRIN) 75 MG tablet Take 1 tablet (75 mg total) by mouth 2 (two) times a day. 12/23/2021 active leuprolide (Lupron Depot, 4-Month,) 30 MG IM injection Inject 30 mg into the shoulder, thigh, or buttocks every 4 (four) months. 12/08/2021 01/09/20 23 active albuterol HFA (PROAIR HFA ; PROVENTIL HFA ; VENTOLIN HFA) 90 mcg/actuation inhaler Inhale 2 puffs by mouth. 11/29/2021 active Minoxidil (ROGAINE MENS EXTEA STRENGTH) 5 % foam Apply 0.5 Applicatorfuls topically 2 (two) times a day. 11/23/2021 active minoxidiL 5 % foam Apply 0.5 Applicatorfuls topically. 11/23/2021 active finasteride (PROSCAR) 5 MG tablet TAKE 1 TABLET BY MOUTH EVERY MORNING 10/05/2021 active polyethylene glycol 17 g packet Take 1 packet (17 g total) by mouth daily as needed for constipation. 08/21/2021 active citalopram (CeleXA) 40 mg tablet 02/22/2021 active furosemide (LASIX) 20 mg tablet 02/11/2021 active oxyCODONE-acetaminop hen (PERCOCET) 5-325 mg per tablet 02/04/2021 active finasteride (PROSCAR) 5 mg tablet 01/28/2021 active calcium acetate (PHOSLO) 667 MG capsule Take 3 capsules (2,001 mg total) by mouth 3 (three) times a day with meals. 12/13/2020 07/01/20 23 active calcium acetate (PHOSLO) 667 MG capsule Take 667 mg by mouth 3 (three) times a day with meals. 12/13/2020 active calcium acetate,phosphat bind, (PHOSLO) 667 mg capsule TAKE 1 CAPSULE WITH EACH MEAL AND SNACK. 12/10/2020 active ferrous sulfate 325 (65 FE) MG tablet Take 1 tablet (325 mg total) by mouth every morning. 12/10/2020 active amLODIPine (NORVASC) 10 mg tablet 11/30/2020 active carvediloL (COREG) 25 mg tablet 11/30/2020 active leuprolide (Lupron Depot, 6 Month,) 45 mg syringe kit 11/18/2020 active finasteride (PROSCAR) 5 mg tablet 11/01/2020 active atorvastatin (LIPITOR) 20 mg tablet 10/04/2020 active furosemide (LASIX) 20 mg tablet 09/30/2020 active calcitrioL (ROCALTROL) 0.25 mcg capsule 09/27/2020 active cholecalciferol (VITAMIN D-3) 25 mcg (1,000 unit) tablet 09/03/2020 activ e amlodipine 5 mg tablet TAKE 1 TABLET BY MOUTH EVERY DAY 06/09/2019 10/08/19 20 completed carvediloL (COREG) 12.5 mg tablet 11/03/2017 active amLODIPine (NORVASC) 10 mg tablet 10/08/2017 active estradiol 1 2mg tab daily 09/30 11/18 24 completed vitamin E 10/15/19 24 active amlodipine 10 mg tablet Take 1 tablet every day by oral route. 09/18/19 24 completed finasteride 5 mg tablet Take 0.5 tablets every day by oral route. 09/18/19 24 completed ropinirole 5 mg tablet Take 1 tablet 3 times a day by oral route. 07/20/19 24 completed losartan 25 mg tablet active Entresto 24 mg-26 mg tablet active calcium acetate 667 mg tablet Take 1 tablet every day by oral route. active Dupixent Pen active Rexulti 2 mg tablet Take 1 tablet every day by oral route. active tamsulosin 0.4 mg capsule TAKE 1 CAPSULE (0.4 MG) BY ORAL ROUTE ONCE DAILY 1/2 HOUR FOLLOWING THE SAME MEAL EACH DAY active Vivelle-Dot 0.1 mg/24 hr transdermal patch Apply 1 patch twice a week by transdermal route. active loratadine (CLARITIN) 10 mg tablet Take 1 tablet (10 mg total) by mouth nightly. active loratadine (CLARITIN) 10 mg tablet Take 1 tablet (10 mg total) by mouth. active Melatonin 10 MG Tablet Dispersible Take 2 tablets by mouth nightly as needed. active rOPINIRole (REQUIP) 0.25 mg tablet Take 1 tablet (0.25 mg total) by mouth. active ROPINIRole (REQUIP) 0.25 mg tablet Take 0.25 mg by mouth nightly. active tamsulosin (FLOMAX) 0.4 mg 24 hr capsule TAKE 1 CAPSULE (0.4 MG) BY ORAL ROUTE ONCE DAILY 1/2 HOUR FOLLOWING THE SAME MEAL EACH DAY active UNABLE TO FIND Take 1 gummy by mouth every morning. Med Name: [employer] power zinc gummies active Allergies Allergen Reaction Severity Comment Documented Date Source Statu s ADHESIVE TAPE-SILICONES RASH Plastic tape causes rash, pt prefers silk tape 08/09/2023 [email or web address] active ADHESIVES/TAPE RASH/DERMATIT IS Plastic tape causes rash, pt prefers silk tape 08/09/2023 [facility] active CHLORHEXIDINE HIVES 02/07/2023 [facility] active LEVONORGESTREL-ETH INYL ESTRAD 12/03/2017 [facility] active Problems Problem Status Onset Date Problem Type Date of Resolution Source Constipation active 2020-11-11 [facility] Atrial fibrillation with RVR active 2025-02-12 [facility] HTN (hypertension) active 2015-01-27 ProblemAct [facility] Mild cognitive impairment active 2024-10-03 ProblemAct [facility] Gender dysphoria in adult active 2024-03-14 ProblemAct [facility] Abnormal stress test active 2025-01-10 ProblemAct [facility] Severe recurrent major depression without psychotic features active 2024-09-22 ProblemAct [facility] ESRD (end stage renal disease) on dialysis active 2025-03-16 Problem[facility] Prurigo nodularis active 2023-09-05 ProblemAct [facility] Acute on chronic anemia active 2020-12-26 [facility] HLD (hyperlipidemia) active Problem[facility] Hypoglycemia active 2023-05-26 Problem[facility] ICD (implantable cardioverter-defibrillator ) in place active 2024-07-07 Problem[facility] Abdominal pain active 2025-01-[address] Circadian rhythm sleep disorder, shift work type active 2014-02-16 ProblemAct [facility] Hypotension active 2025-03-03 ProblemAct [facility] History of cardiac arrest active 2021-08-09 ProblemAct [facility] Proteinuria active 2008-11-15 ProblemAct [facility] Secondary hypercoagulable state active 2023-08-10 ProblemAct [facility] Alopecia active 2020-08-08 ProblemAct [facility] BPH (benign prostatic hyperplasia) active 2024-10-03 [facility] Recurrent major depressive disorder, in partial remission active 2023-11-16 [facility] AV fistula active 2025-03-06 ProblemAct [facility] HFrEF (heart failure with reduced ejection fraction) active 2025-02-01 ProblemAct [facility] Hx of colonic polyps active 2023-01-08 ProblemAct [facility] Suicide attempt active 2025-02-12 ProblemAct [facility] Paroxysmal VT active ProblemAct [facility] Secondary hyperparathyroidism of renal origin active ProblemAct [facility] Anxiety and depression active 2025-01-09 ProblemAct [facility] Long QT interval active 2021-09-12 ProblemAct [facility] Fatigue, unspecified type active 2025-01-08 ProblemAct [facility] Fluttering sensation of heart active 2021-09-11 ProblemAct [facility] Low back pain active 2014-06-04 ProblemAct [facility] T Hyperkalemia active 2023-05-25 ProblemAct [facility] Clotted renal dialysis AV graft, initial encounter active 2025-03-[address] Paroxysmal atrial fibrillation active 2024-11-01 ProblemAct [facility] Aortic calcification active ProblemAct [facility] Dry mouth active 2024-10-03 ProblemAct [facility] Hemorrhoids active 2024-10-28 ProblemAct [facility] KASEY (obstructive sleep apnea) active 2025-02-12 ProblemAct [facility] Atypical chest pain active 2020-11-11 ProblemAct [facility] AICD discharge active 2023-04-[address] Polyp of colon active 2020-11-[address] Gastroesophageal reflux disease active 2024-11-10 [facility] Suicidal ideation active 2024-09-21 [facility] Chronic HFrEF (heart failure with reduced ejection fraction) active 2025-02-14 [facility] Diarrhea active 2025-02-16 [facility] PTSD (post-traumatic stress disorder) active 2024-09-23 [facility] Encounter for post surgical wound check active 2025-03-12 [facility] [facility] Paroxysmal VT active [facility] Hypoglycemia active 2023-05-26 [facility] History of placement of internal cardiac defibrillator active 2021-09-12 [facility] PTSD (post-traumatic stress disorder) active 2024-09-23 [facility] Low back pain active 2014-06-04 [facility] T Acute on chronic anemia active 2020-12-26 [facility] Alopecia active 2020-08-08 [facility] ESRD (end stage renal disease) on dialysis active 2021-09-12 [facility] Hx of colonic polyps active 2023-01-08 [facility] AICD discharge active 2023-04-[address] Polyp of colon active 2020-11-[address] Proteinuria active 2008-11-15 [facility] Secondary hypercoagulable state active 2023-08-10 [facility] HTN (hypertension) active 2015-01-27 [facility] Aortic calcification active [facility] Prurigo nodularis active 2023-09-05 [facility] Hemorrhoids active 2024-10-28 [facility] Atypical chest pain active 2020-11-11 [facility] Constipation active 2020-11-11 [facility] Recurrent major depressive disorder, in partial remission active 2023-11-16 [facility] New onset atrial fibrillation active 2023-05-28 [facility] Gastroesophageal reflux disease active 2024-11-10 [facility] Suicidal ideation active 2024-09-21 [facility] Circadian rhythm sleep disorder, shift work type active 2014-02-16 ProblemAct [facility] Hyperkalemia active 2023-05-25 [facility] Dry mouth active 2024-10-03 [facility] Paroxysmal atrial fibrillation active 2024-11-01 [facility] HFrEF (heart failure with reduced ejection fraction) active 2023-05-30 [facility] Fluttering sensation of heart active 2021-09-11 [facility] Mild cognitive impairment active 2024-10-03 [facility] History of cardiac arrest active 2021-08-09 [facility] Long QT interval active 2021-09-12 [facility]Act [facility] Gender dysphoria in adult active 2024-03-14 [facility] BPH (benign prostatic hyperplasia) active 2024-10-03 [facility] Severe recurrent major depression without psychotic features active 2024-09-22 [facility] Hyperlipidemia active ProblemAct [facility] Transgender identity active 2019-04-16 [facility]Act [facility] Automatic implantable cardiac defibrillator in situ active 2021-08-12 [facility]Act [facility] History of cardiac catheterization active 2021-08-11 [facility]Act [facility] Hyperlipidemia active 2019-06-09 [facility]Act [facility] Atrial fibrillation active 2023-07-19 [facility]Act [facility] End-stage renal disease active 2021-07-20 [facility]Act [facility] Cardiomyopathy active 2023-09-18 [facility]Act [facility] Prolonged QT interval active 2023-07-26 [facility]Act [facility] Essential hypertension active 2019-02-17 [facility]Act [facility] History of cardiac arrest active 2023-07-26 [facility]Act [facility] Gender dysphoria active 2021-02-25 ProblemAct [facility] Encounter for fertility preservation counseling active 2021-12-29 ProblemAct [facility] Immunizations Vaccine Date Source Lot Number Status Covid-19 mRNA Seasonal Vacci ne - MODERNA 50 mcg/0.5 mL 12 years and older 05/05/2024 [facility] [id number] completed Covid-19 mRNA Seasonal Vacci ne - MODERNA 50 mcg/0.5 mL 12 years and older 05/05/2024 [facility] [id number] completed Covid-19 mRNA Seasonal Vacci ne - MODERNA 50 mcg/0.5 mL 12 years and older 05/05/2024 [facility] [id number] completed Covid-19 mRNA Seasonal Vacci ne - MODERNA 50 mcg/0.5 mL 12 years and older 05/05/2024 [facility] [id number] completed Covid-19 mRNA Seasonal Vacci ne - MODERNA 50 mcg/0.5 mL 12 years and older 05/05/2024 [facility] [id number] completed Covid-19 mRNA Seasonal Vacci ne - MODERNA 50 mcg/0.5 mL 12 years and older 05/05/2024 [facility] [id number] completed Covid-19 mRNA Seasonal Vacci ne - MODERNA 50 mcg/0.5 mL 12 years and older 05/05/2024 [facility] [id number] completed Covid-19 mRNA Seasonal Vacci ne - MODERNA 50 mcg/0.5 mL 12 years and older 05/05/2024 [facility] [id number] completed Influenza, Trivalent (FLUARI X, AFLURIA, FLULAVAL, FLUZONE) Preservative Free IM 05/05/2024 [facility] [id number] completed Influenza, Trivalent (FLUARI X, AFLURIA, FLULAVAL, FLUZONE) Preservative Free IM 05/05/2024 [facility] [id number] completed Influenza, Trivalent (FLUARI X, AFLURIA, FLULAVAL, FLUZONE) Preservative Free IM 05/05/2024 [facility] [id number] completed Influenza, Trivalent (FLUARI X, AFLURIA, FLULAVAL, FLUZONE) Preservative Free IM 05/05/2024 [facility] [id number] completed Influenza, Trivalent (FLUARI X, AFLURIA, FLULAVAL, FLUZONE) Preservative Free IM 05/05/2024 [facility] [id number] completed Influenza, Trivalent (FLUARI X, AFLURIA, FLULAVAL, FLUZONE) Preservative Free IM 05/05/2024 [facility] [id number] completed Influenza, Trivalent (FLUARI X, AFLURIA, FLULAVAL, FLUZONE) Preservative Free IM 05/05/2024 [facility] [id number] completed Influenza, Trivalent (FLUARI X, AFLURIA, FLULAVAL, FLUZONE) Preservative Free IM 05/05/2024 [facility] [id number] completed Influenza, Trivalent (FLUARI X, AFLURIA, FLULAVAL, FLUZONE) Preservative Free IM 05/05/2024 [facility] [id number] completed Covid-19 mRNA Seasonal Vacci ne - MODERNA 50 mcg/0.5 mL 12 years and older 10/17/2023 [facility] [id number] completed Covid-19 mRNA Seasonal Vacci ne - MODERNA 50 mcg/0.5 mL 12 years and older 10/17/2023 [facility] [id number] completed Covid-19 mRNA Seasonal Vacci ne - MODERNA 50 mcg/0.5 mL 12 years and older 10/17/2023 [facility] [id number] completed Covid-19 mRNA Seasonal Vacci ne - MODERNA 50 mcg/0.5 mL 12 years and older 10/17/2023 [facility] [id number] completed Covid-19 mRNA Seasonal Vacci ne - MODERNA 50 mcg/0.5 mL 12 years and older 10/17/2023 [facility] [id number] completed Covid-19 mRNA Seasonal Vacci ne - MODERNA 50 mcg/0.5 mL 12 years and older 10/17/2023 [facility] [id number] completed Covid-19 mRNA Seasonal Vacci ne - MODERNA 50 mcg/0.5 mL 12 years and older 10/17/2023 [facility] [id number] completed Covid-19 mRNA Seasonal Vacci ne - MODERNA 50 mcg/0.5 mL 12 years and older 10/17/2023 [facility] [id number] completed Covid-19 mRNA Seasonal Vacci ne - MODERNA 50 mcg/0.5 mL 12 years and older 04/27/2023 [facility] [id number] completed Covid-19 mRNA Seasonal Vacci ne - MODERNA 50 mcg/0.5 mL 12 years and older 04/27/2023 [facility] [id number] completed Covid-19 mRNA Seasonal Vacci ne - MODERNA 50 mcg/0.5 mL 12 years and older 04/27/2023 [facility] [id number] completed Covid-19 mRNA Seasonal Vacci ne - MODERNA 50 mcg/0.5 mL 12 years and older 04/27/2023 [facility] [id number] completed Covid-19 mRNA Seasonal Vacci ne - MODERNA 50 mcg/0.5 mL 12 years and older 04/27/2023 [facility] [id number] completed Covid-19 mRNA Seasonal Vacci ne - MODERNA 50 mcg/0.5 mL 12 years and older 04/27/2023 [facility] [id number] completed Covid-19 mRNA Seasonal Vacci ne - MODERNA 50 mcg/0.5 mL 12 years and older 04/27/2023 [facility] [id number] completed Covid-19 mRNA Seasonal Vacci ne - MODERNA 50 mcg/0.5 mL 12 years and older 04/27/2023 [facility] [id number] completed Hep A / Hep B 04/27/2023 [facility] 327E3 completed Hep A / Hep B 04/27/2023 [facility] 327E3 completed Hep A / Hep B 04/27/2023 [facility] 327E3 completed Hep A / Hep B 04/27/2023 [facility] 327E3 completed Hep A / Hep B 04/27/2023 [facility] 327E3 completed Hep A / Hep B 04/27/2023 [facility] 327E3 completed Hep A / Hep B 04/27/2023 [facility] 327E3 completed Hep A / Hep B 04/27/2023 [facility] 327E3 completed Pneumococcal Conjugate 20-Valent 04/27/2023 [facility] [id number] completed Pneumococcal Conjugate 20-Valent 04/27/2023 [facility] [id number] completed Pneumococcal Conjugate 20-Valent 04/27/2023 [facility] [id number] completed Pneumococcal Conjugate 20-Valent 04/27/2023 [facility] [id number] completed Pneumococcal Conjugate 20-Valent 04/27/2023 CCT [id number] completed Pneumococcal Conjugate 20-Valent 04/27/2023 [facility] [id number] completed Pneumococcal Conjugate 20-Valent 04/27/2023 CCT [id number] completed Pneumococcal Conjugate 20-Valent 04/27/2023 [facility] [id number] completed Pneumococcal Conjugate 20-Valent 04/27/2023 [facility] [id number] completed Zoster Vaccine Recombinant (Shingrix) 04/27/2023 [facility] [id number] completed Zoster Vaccine Recombinant (Shingrix) 04/27/2023 [facility] C5M4M completed Zoster Vaccine Recombinant (Shingrix) 04/27/2023 [facility] C5M4M completed Zoster Vaccine Recombinant (Shingrix) 04/27/2023 [facility] C5M4M completed Zoster Vaccine Recombinant (Shingrix) 04/27/2023 [facility] C5M4M completed Zoster Vaccine Recombinant (Shingrix) 04/27/2023 [facility] C5M4M completed Zoster Vaccine Recombinant (Shingrix) 04/27/2023 [facility] C5M4M completed Zoster Vaccine Recombinant (Shingrix) 04/27/2023 [facility] C5M4M completed Influenza, Quadrivalent (FLUCELVAX) MDCK, Preservative Free IM 02/22/2023 [facility] completed Influenza, Quadrivalent (FLUCELVAX) MDCK, Preservative Free IM 02/22/2023 [facility] completed Influenza, Quadrivalent (FLUCELVAX) MDCK, Preservative Free IM 02/22/2023 [facility] completed Influenza, Quadrivalent (FLUCELVAX) MDCK, Preservative Free IM 02/22/2023 [facility] completed Influenza, Quadrivalent (FLUCELVAX) MDCK, Preservative Free IM 02/22/2023 [facility] completed Influenza, Quadrivalent (FLUCELVAX) MDCK, Preservative Free IM 02/22/2023 [facility] completed Influenza, Quadrivalent (FLUCELVAX) MDCK, Preservative Free IM 02/22/2023 [facility] completed Influenza, Quadrivalent (FLUCELVAX) MDCK, Preservative Free IM 02/22/2023 [facility] completed Influenza, Unspecified 02/22/2023 [facility] co mpleted Influenza, Unspecified 02/22/2023 [facility] co mpleted Influenza, Unspecified 02/22/2023 [facility] co mpleted Influenza, Unspecified 02/22/2023 [facility] co mpleted Influenza, Unspecified 02/22/2023 [facility] co mpleted Influenza, Unspecified 02/22/2023 [facility] co mpleted Influenza, Unspecified 02/22/2023 [facility] co mpleted Influenza, Unspecified 02/22/2023 [facility] co mpleted Pneumococcal Conjugate 20-Valent 12/07/2022 [facility] completed Pneumococcal Conjugate 20-Valent 12/07/2022 [facility] completed Pneumococcal Conjugate 20-Valent 12/07/2022 [facility] completed Pneumococcal Conjugate 20-Valent 12/07/2022 [facility] completed Pneumococcal Conjugate 20-Valent 12/07/2022 [facility] completed Pneumococcal Conjugate 20-Valent 12/07/2022 [facility] completed Pneumococcal Conjugate 20-Valent 12/07/2022 [facility] completed Pneumococcal Conjugate 20-Valent 12/07/2022 [facility] completed Hep A / Hep B 12/05/2022 [facility] completed Hep A / Hep B 12/05/2022 [facility] completed Hep A / Hep B 12/05/2022 [facility] completed Hep A / Hep B 12/05/2022 [facility] completed Hep A / Hep B 12/05/2022 [facility] completed Hep A / Hep B 12/05/2022 [facility] completed Hep A / Hep B 12/05/2022 [facility] completed Hep A / Hep B 12/05/2022 [facility] completed Tdap 12/05/2022 [facility] DH3A2 completed Tdap 12/05/2022 [facility] DH3A2 completed Tdap 12/05/2022 [facility] DH3A2 completed Tdap 12/05/2022 [facility] DH3A2 completed Tdap 12/05/2022 [facility] DH3A2 completed Tdap 12/05/2022 [facility] DH3A2 completed Tdap 12/05/2022 [facility] DH3A2 completed Tdap 12/05/2022 [facility] DH3A2 completed Zoster Vaccine Recombinant (Shingrix) 12/05/2022 [facility] [id number] completed Zoster Vaccine Recombinant (Shingrix) 12/05/2022 [facility] XG7RF completed Zoster Vaccine Recombinant (Shingrix) 12/05/2022 [facility] XG7RF completed Zoster Vaccine Recombinant (Shingrix) 12/05/2022 [facility] XG7RF completed Zoster Vaccine Recombinant (Shingrix) 12/05/2022 [facility] XG7RF completed Zoster Vaccine Recombinant (Shingrix) 12/05/2022 CCT XG7RF completed Zoster Vaccine Recombinant (Shingrix) 12/05/2022 [facility] [id number] completed Zoster Vaccine Recombinant (Shingrix) 12/05/2022 [facility] XG7RF completed Influenza, Quadrivalent (FLUARIX, AFLURIA, FLULAVAL, FLUZONE) Preservative Free IM 02/17/2022 [facility] [id number] co mpleted Influenza, Quadrivalent (FLUARIX, AFLURIA, FLULAVAL, FLUZONE) Preservative Free IM 02/17/2022 [facility] [id number] co mpleted Influenza, Quadrivalent (FLUARIX, AFLURIA, FLULAVAL, FLUZONE) Preservative Free IM 02/17/2022 [facility] [id number] co mpleted Influenza, Quadrivalent (FLUARIX, AFLURIA, FLULAVAL, FLUZONE) Preservative Free IM 02/17/2022 CCT [id number] co mpleted Influenza, Quadrivalent (FLUARIX, AFLURIA, FLULAVAL, FLUZONE) Preservative Free IM 02/17/2022 [facility] [id number] co mpleted Influenza, Quadrivalent (FLUARIX, AFLURIA, FLULAVAL, FLUZONE) Preservative Free IM 02/17/2022 CCT [id number] co mpleted Influenza, Quadrivalent (FLUARIX, AFLURIA, FLULAVAL, FLUZONE) Preservative Free IM 02/17/2022 CCT [id number] co mpleted Influenza, Quadrivalent (FLUARIX, AFLURIA, FLULAVAL, FLUZONE) Preservative Free IM 02/17/2022 CCT [id number] co mpleted Influenza, Quadrivalent (FLUCELVAX) MDCK, Preservative Free IM 02/17/2022 CCT [id number] completed Influenza, Quadrivalent (FLUCELVAX) MDCK, Preservative Free IM 02/17/2022 CCT [id number] completed Influenza, Quadrivalent (FLUCELVAX) MDCK, Preservative Free IM 02/17/2022 CCT [id number] completed Influenza, Quadrivalent (FLUCELVAX) MDCK, Preservative Free IM 02/17/2022 CCT [id number] completed Influenza, Quadrivalent (FLUCELVAX) MDCK, Preservative Free IM 02/17/2022 CCT [id number] completed Influenza, Quadrivalent (FLUCELVAX) MDCK, Preservative Free IM 02/17/2022 CCT [id number] completed Influenza, Quadrivalent (FLUCELVAX) MDCK, Preservative Free IM 02/17/2022 CCT [id number] completed Influenza, Quadrivalent (FLUCELVAX) MDCK, Preservative Free IM 02/17/2022 CCT [id number] completed Influenza, Unspecified 02/17/2022 [facility] co mpleted Influenza, Unspecified 02/17/2022 [facility] co mpleted Influenza, Unspecified 02/17/2022 [facility] co mpleted Influenza, Unspecified 02/17/2022 [facility] co mpleted Influenza, Unspecified 02/17/2022 [facility] co mpleted Influenza, Unspecified 02/17/2022 [facility] co mpleted Influenza, Unspecified 02/17/2022 [facility] co mpleted Influenza, Unspecified 02/17/2022 [facility] co mpleted Pneumococcal, Unspecified 04/23/2021 [facility] completed Pneumococcal, Unspecified 04/23/2021 [facility] completed Pneumococcal, Unspecified 04/23/2021 [facility] completed Pneumococcal, Unspecified 04/23/2021 [facility] completed Pneumococcal, Unspecified 04/23/2021 [facility] completed Pneumococcal, Unspecified 04/23/2021 [facility] completed Pneumococcal, Unspecified 04/23/2021 [facility] completed Pneumococcal, Unspecified 04/23/2021 [facility] completed Influenza, Quadrivalent (FLUARIX, AFLURIA, FLULAVAL, FLUZONE) Preservative Free IM 04/19/2021 [facility] co mpleted Influenza, Quadrivalent (FLUARIX, AFLURIA, FLULAVAL, FLUZONE) Preservative Free IM 04/19/2021 [facility] co mpleted Influenza, Quadrivalent (FLUARIX, AFLURIA, FLULAVAL, FLUZONE) Preservative Free IM 04/19/2021 [facility] co mpleted Influenza, Quadrivalent (FLUARIX, AFLURIA, FLULAVAL, FLUZONE) Preservative Free IM 04/19/2021 [facility] co mpleted Influenza, Quadrivalent (FLUARIX, AFLURIA, FLULAVAL, FLUZONE) Preservative Free IM 04/19/2021 [facility] co mpleted Influenza, Quadrivalent (FLUARIX, AFLURIA, FLULAVAL, FLUZONE) Preservative Free IM 04/19/2021 [facility] co mpleted Influenza, Quadrivalent (FLUARIX, AFLURIA, FLULAVAL, FLUZONE) Preservative Free IM 04/19/2021 [facility] co mpleted Influenza, Quadrivalent (FLUARIX, AFLURIA, FLULAVAL, FLUZONE) Preservative Free IM 04/19/2021 [facility] co mpleted Influenza, Unspecified 04/19/2021 [facility] co mpleted Influenza, Unspecified 04/19/2021 [facility] co mpleted Influenza, Unspecified 04/19/2021 [facility] co mpleted Influenza, Unspecified 04/19/2021 [facility] co mpleted Influenza, Unspecified 04/19/2021 [facility] co mpleted Influenza, Unspecified 04/19/2021 [facility] co mpleted Influenza, Unspecified 04/19/2021 [facility] co mpleted Influenza, Unspecified 04/19/2021 [facility] co mpleted Covid-19 mRNA Primary Series Vaccine - Moderna 0.5 mL Full Dose 03/28/2021 [facility] [id number] completed Covid-19 mRNA Primary Series Vaccine - Moderna 0.5 mL Full Dose 03/28/2021 [facility] [id number] completed Covid-19 mRNA Primary Series Vaccine - Moderna 0.5 mL Full Dose 03/28/2021 [facility] [id number] completed Covid-19 mRNA Primary Series Vaccine - Moderna 0.5 mL Full Dose 03/28/2021 [facility] [id number] completed Covid-19 mRNA Primary Series Vaccine - Moderna 0.5 mL Full Dose 03/28/2021 [facility] [id number] completed Covid-19 mRNA Primary Series Vaccine - Moderna 0.5 mL Full Dose 03/28/2021 [facility] [id number] completed Covid-19 mRNA Primary Series Vaccine - Moderna 0.5 mL Full Dose 03/28/2021 [facility] [id number] completed Covid-19 mRNA Primary Series Vaccine - Moderna 0.5 mL Full Dose 03/28/2021 [facility] [id number] completed Influenza, Quadrivalent (FLUARIX, AFLURIA, FLULAVAL, FLUZONE) Preservative Free IM 02/21/2021 [facility] [id number] co mpleted Influenza, Quadrivalent (FLUARIX, AFLURIA, FLULAVAL, FLUZONE) Preservative Free IM 02/21/2021 [facility] [id number] co mpleted Influenza, Quadrivalent (FLUARIX, AFLURIA, FLULAVAL, FLUZONE) Preservative Free IM 02/21/2021 [facility] 49LC5 co mpleted Influenza, Quadrivalent (FLUARIX, AFLURIA, FLULAVAL, FLUZONE) Preservative Free IM 02/21/2021 [facility] 49LC5 co mpleted Influenza, Quadrivalent (FLUARIX, AFLURIA, FLULAVAL, FLUZONE) Preservative Free IM 02/21/2021 [facility] 49LC5 co mpleted Influenza, Quadrivalent (FLUARIX, AFLURIA, FLULAVAL, FLUZONE) Preservative Free IM 02/21/2021 [facility] 49LC5 co mpleted Influenza, Quadrivalent (FLUARIX, AFLURIA, FLULAVAL, FLUZONE) Preservative Free IM 02/21/2021 [facility] 49LC5 co mpleted Influenza, Quadrivalent (FLUARIX, AFLURIA, FLULAVAL, FLUZONE) Preservative Free IM 02/21/2021 [facility] 49LC5 co mpleted Influenza, Quadrivalent (FLUARIX, AFLURIA, FLULAVAL, FLUZONE) Preservative Free IM 02/21/2021 [facility] 49LC5 co mpleted Pneumococcal Conjugate 13-Valent 02/21/2021 [facility] completed Pneumococcal Conjugate 13-Valent 02/21/2021 [facility] completed Pneumococcal Conjugate 13-Valent 02/21/2021 [facility] completed Pneumococcal Conjugate 13-Valent 02/21/2021 [facility] completed Pneumococcal Conjugate 13-Valent 02/21/2021 [facility] completed Pneumococcal Conjugate 13-Valent 02/21/2021 [facility] completed Pneumococcal Conjugate 13-Valent 02/21/2021 [facility] completed Pneumococcal Conjugate 13-Valent 02/21/2021 [facility] completed Zoster Vaccine Recombinant (Shingrix) 02/21/2021 [facility] 2232K completed Zoster Vaccine Recombinant (Shingrix) 02/21/2021 [facility] 2232K completed Zoster Vaccine Recombinant (Shingrix) 02/21/2021 [facility] 2232K completed Zoster Vaccine Recombinant (Shingrix) 02/21/2021 [facility] 2232K completed Zoster Vaccine Recombinant (Shingrix) 02/21/2021 [facility] 2232K completed Zoster Vaccine Recombinant (Shingrix) 02/21/2021 [facility] 2232K completed Zoster Vaccine Recombinant (Shingrix) 02/21/2021 CCT 2232K completed Zoster Vaccine Recombinant (Shingrix) 02/21/2021 CCT 2K completed PPD Test 01/27/2021 [facility] completed PPD Test 01/27/2021 [facility] completed PPD Test 01/27/2021 [facility] completed PPD Test 01/27/2021 [facility] completed PPD Test 01/27/2021 [facility] completed PPD Test 01/27/2021 [facility] completed PPD Test 01/27/2021 [facility] completed PPD Test 01/27/2021 [facility] completed PPD Test 01/15/2021 [facility] completed PPD Test 01/15/2021 [facility] completed PPD Test 01/15/2021 [facility] completed PPD Test 01/15/2021 [facility] completed PPD Test 01/15/2021 [facility] completed PPD Test 01/15/2021 [facility] completed PPD Test 01/15/2021 [facility] completed PPD Test 01/15/2021 [facility] completed Covid-19 mRNA Primary Series Vaccine - Moderna 0.5 mL Full Dose 11/30/2020 [facility] [id number] completed Covid-19 mRNA Primary Series Vaccine - Moderna 0.5 mL Full Dose 11/30/2020 [facility] [id number] completed Covid-19 mRNA Primary Series Vaccine - Moderna 0.5 mL Full Dose 11/30/2020 [facility] [id number] completed Covid-19 mRNA Primary Series Vaccine - Moderna 0.5 mL Full Dose 11/30/2020 [facility] [id number] completed Covid-19 mRNA Primary Series Vaccine - Moderna 0.5 mL Full Dose 11/30/2020 [facility] [id number] completed Covid-19 mRNA Primary Series Vaccine - Moderna 0.5 mL Full Dose 11/30/2020 [facility] [id number] completed Covid-19 mRNA Primary Series Vaccine - Moderna 0.5 mL Full Dose 11/30/2020 [facility] [id number] completed Covid-19 mRNA Primary Series Vaccine - Moderna 0.5 mL Full Dose 11/30/2020 [facility] [id number] completed Covid-19 mRNA Primary Series Vaccine - Moderna 0.5 mL Full Dose 11/03/2020 [facility] [id number] completed Covid-19 mRNA Primary Series Vaccine - Moderna 0.5 mL Full Dose 11/03/2020 [facility] [id number] completed Covid-19 mRNA Primary Series Vaccine - Moderna 0.5 mL Full Dose 11/03/2020 [facility] [id number] completed Covid-19 mRNA Primary Series Vaccine - Moderna 0.5 mL Full Dose 11/03/2020 [facility] [id number] completed Covid-19 mRNA Primary Series Vaccine - Moderna 0.5 mL Full Dose 11/03/2020 [facility] [id number] completed Covid-19 mRNA Primary Series Vaccine - Moderna 0.5 mL Full Dose 11/03/2020 [facility] [id number] completed Covid-19 mRNA Primary Series Vaccine - Moderna 0.5 mL Full Dose 11/03/2020 [facility] [id number] completed Covid-19 mRNA Primary Series Vaccine - Moderna 0.5 mL Full Dose 11/03/2020 [facility] [id number] completed MMR 01/05/2020 [facility] completed MMR 01/05/2020 [facility] completed MMR 01/05/2020 CCT completed MMR 01/05/2020 CCT completed MMR 01/05/2020 CCT completed MMR 01/05/2020 CCT completed MMR 01/05/2020 [facility] completed MMR 01/05/2020 [facility] completed Influenza, Unspecified 07/29/2019 [facility] co mpleted Influenza, Unspecified 07/29/2019 [facility] co mpleted Influenza, Unspecified 07/29/2019 [facility] co mpleted Influenza, Unspecified 07/29/2019 [facility] co mpleted Influenza, Unspecified 07/29/2019 [facility] co mpleted Influenza, Unspecified 07/29/2019 [facility] co mpleted Influenza, Unspecified 07/29/2019 [facility] co mpleted Influenza, Unspecified 07/29/2019 [facility] co mpleted Influenza Inactivated/Split Preservative Free IM 05/26/2015 [facility] [id number] - FLUARIX 0.5 ML SYRINGE completed Influenza Inactivated/Split Preservative Free IM 03/27/2014 [facility] [id number] completed Tdap 11/15/2008 [facility] [id number] completed Tdap 11/15/2008 [facility] [id number] completed Tdap 11/15/2008 [facility] [id number] completed Tdap 11/15/2008 [facility] [id number] completed Tdap 11/15/2008 [facility] [id number] completed Tdap 11/15/2008 [facility] [id number] completed Tdap 11/15/2008 [facility] [id number] completed Tdap 11/15/2008 [facility] [id number] completed Encounters Encounter Type Encounter Reason Primary Diagnosis Location Date Ambulatory Abrasion of lip, sequela Abrasion of lip, sequela [facility] 5 Emergency Traumatic subdural hemorrhage with loss of consciousness status unknown, initial encounter Traumatic subdural hemorrhage with loss of consciousness status unknown, initial encounter [facility] 5 Emergency BLOOD CLOT Other specified complication of vascular prosthetic devices, implants and grafts, initial encounter ([facility] V24) [facility] 5 Ambulatory Follow-up Follow-up [facility] 5 Emergency Localized edema Localized edema [facility] 5 Ambulatory Other specified aftercare following surgery Other specified aftercare following surgery [facility] 5 Inpatient Other mechanical complication of surgically created arteriovenous fistula, initial encounter Other mechanical complication of surgically created arteriovenous fistula, initial encounter [facility] 5 Inpatient End stage renal disease End stage renal disease [facility] 5 Ambulatory Atrial fibrillation (HC Code) Atrial fibrillation (HC Code) [facility] 5 Ambulatory Balanitis Balanitis [facility] 5 Emergency Candidal balanitis Candidal balanitis [facility] 5 Ambulatory Presence of automati c (implantable) cardiac defibrillator Presence of automatic (implantable) cardiac defibrillator [employer] 5 Inpatient Tachycardia, unspecified Tachycardia, unspecified [employer] 5 Ambulatory Presence of automati c (implantable) cardiac defibrillator Presence of automatic (implantable) cardiac defibrillator [employer] 5 Inpatient Unspecified abdomina l pain Unspecified abdominal pain [employer] 5 Ambulatory Presence of other vascular implants and grafts Presence of other vascular implants and grafts [facility] 5 Emergency End stage renal disease End stage renal disease [employer] 5 Emergency Hyperkalemia Hyperkalemia [facility] 5 Emergency Arteriovenous fistul a, acquired Arteriovenous fistula, acquired [facility] 5 Inpatient Diarrhea, unspecified Diarrhea, unspecifi ed [facility] 5 Inpatient Encephalopathy, unspecified Encephalopathy, unspecified [facility] 5 Emergency Gastro-esophageal reflux disease without esophagitis Gastro-esophageal reflux disease without esophagitis [facility] 5 [facility] 5 Ambulatory Prurigo nodularis Prurigo nodularis [employer] 5 [facility] 5 Ambulatory Second degree hemorrhoids Second degree hemorrhoids [facility] 5 [facility] 5 Ambulatory End stage renal disease End stage renal disease [facility] 5 Ambulatory Unspecified hemorrhoids Unspecified hemorrhoids [facility] 5 Ambulatory Unspecified hemorrhoids Unspecified hemorrhoids [facility] 5 Ambulatory Calculus of gallbladder without cholecystitis without obstruction Calculus of gallbladder without cholecystitis without obstruction [facility] 5 [facility] 5 Ambulatory Presence of automati c (implantable) cardiac defibrillator Presence of automatic (implantable) cardiac defibrillator [facility] 5 Ambulatory Prurigo nodularis Prurigo nodularis [employer] 5 Ambulatory Rectal Bleeding Rectal Bleeding [facility] 5 Inpatient Unspecified atrial fibrillation Unspecified atrial fibrillation [facility] 5 Emergency Major depressive disorder, recurrent severe without psychotic features [facility] 5 [facility] 5 Ambulatory Abdominal distension (gaseous) Abdominal distension (gaseous) [facility] 5 Ambulatory Constipation, unspecified Constipation, unspecified [facility] 5 Observation Major depressive disorder, recurrent severe without psychotic features [facility] 5 Emergency Generalized abdomina l pain Generalized abdominal pain [employer] 5 Emergency Constipation, unspecified Constipation, unspecified [employer] 5 Ambulatory Abdominal distension (gaseous) Abdominal distension (gaseous) [employer] 5 Ambulatory Other specified cough Other specified cou gh [employer] 5 Ambulatory Consult Consult [employer] 5 [facility] 5 Ambulatory Follow-up Follow-up [employer] 5 Inpatient End stage renal disease End stage renal disease [employer] 5 Ambulatory Consult Consult [employer] 5 Ambulatory Encounter for genera l adult medical examination without abnormal findings Encounter for general adult medical examination without abnormal findings [employer] 4 Ambulatory Presence of automati c (implantable) cardiac defibrillator Presence of automatic (implantable) cardiac defibrillator [facility] 4 Ambulatory Prurigo nodularis Prurigo nodularis [facility] 4 Ambulatory Transsexualism Transsexualism [employer] 4 Inpatient Hyperkalemia Hyperkalemia [facility] [employer] 4 Ambulatory Consult Consult [employer] 4 Ambulatory Transsexualism Transsexualism [employer] 4 Inpatient End stage renal disease End stage renal disease [employer] 4 Ambulatory Consult Consult [employer] 4 Ambulatory Presence of automati c (implantable) cardiac defibrillator Presence of automatic (implantable) cardiac defibrillator [employer] 4 Ambulatory Major depressive disorder, recurrent, in partial remission Major depressive disorder, recurrent, in partial remission [facility] 4 [facility] 4 Emergency Major depressive disorder, recurrent severe without psychotic features Major depressive disorder, recurrent severe without psychotic features [employer] 4 Emergency Diarrhea, unspecified Diarrhea, unspecifi ed [employer] 4 Emergency Diarrhea, unspecified Diarrhea, unspecifi ed [employer] 4 [facility] 4 Ambulatory Encounter for genera l adult medical examination without abnormal findings Encounter for general adult medical examination without abnormal findings [employer] 4 Ambulatory Presence of automati c (implantable) cardiac defibrillator Presence of automatic (implantable) cardiac defibrillator [facility] [employer] 4 Ambulatory Follow-up Follow-up [employer] 4 [facility] 4 Ambulatory Unspecified atrial fibrillation Unspecified atrial fibrillation [employer] 4 Emergency Other specified heal th status Other specified health status [facility] 4 Ambulatory Transsexualism Transsexualism [facility] 4 [facility] 4 Ambulatory Stenosis of other vascular prosthetic devices, implants and grafts, 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, implants and grafts, initial encounter [facility] [employer] 4 Ambulatory 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 [employer] 4 [facility] 4 Ambulatory [employer] 4 Inpatient End stage renal disease End stage renal disease [facility] 4 [facility] 4 [facility] 4 Ambulatory [employer] 4 Emergency Other specified diseases of anus and rectum Other specified diseases of anus and rectum [facility] [employer] 4 Ambulatory Prurigo nodularis Prurigo nodularis [facility] [employer] 4 [facility] 4 Ambulatory End stage renal disease End stage renal disease [employer] 4 Emergency Unspecified atrial fibrillation Unspecified atrial fibrillation [employer] 4 Ambulatory Peripheral vascular angioplasty status Peripheral vascular angioplasty status [facility] 3 Observation Unspecified atrial fibrillation Unspecified atrial fibrillation [facility] 3 Inpatient Hyperkalemia Hyperkalemia [employer] 3 Ambulatory End stage renal disease End stage renal disease [employer] 3 Ambulatory Gastro-esophageal reflux disease without esophagitis Gastro-esophageal reflux disease without esophagitis [employer] 3 Ambulatory Presence of automati c (implantable) cardiac defibrillator Presence of automatic (implantable) cardiac defibrillator [employer] 3 Emergency Chest pain, unspecified Chest pain, unspecified [employer] 3 Observation Encounter for adjustment and management of automatic implantable cardiac defibrillator Encounter for adjustment and management of automatic implantable cardiac defibrillator [employer] 3 Ambulatory Presence of automati c (implantable) cardiac defibrillator Presence of automatic (implantable) cardiac defibrillator [employer] 3 Ambulatory Encounter for screening for malignant neoplasm of colon Encounter for screening for malignant neoplasm of colon [employer] 3 Ambulatory Encounter for screening for malignant neoplasm of colon Encounter for screening for malignant neoplasm of colon [employer] 3 Ambulatory [facility] 3 Ambulatory Encounter for genera l adult medical examination without abnormal findings Encounter for general adult medical examination without abnormal findings [facility] 3 Ambulatory End stage renal disease End stage renal disease [employer] 3 Ambulatory Presence of automati c (implantable) cardiac defibrillator Presence of automatic (implantable) cardiac defibrillator [employer] 3 Ambulatory Encounter for other preprocedural examination Encounter for other preprocedural examination [facility] 3 Ambulatory Prurigo nodularis [facility] 3 Ambulatory Encounter for screening for malignant neoplasm of colon [employer] 3 Ambulatory Disorder of the skin and subcutaneous tissue, unspecified [employer] 3 Ambulatory [facility] 3 Ambulatory Follow-up [facility] 3 Ambulatory Encounter for fertility preservation counseling [facility] 3 Ambulatory Presence of automati c (implantable) cardiac defibrillator Presence of automatic (implantable) cardiac defibrillator [employer] 3 Ambulatory Encounter for other preprocedural examination Encounter for other preprocedural examination [employer] 3 Ambulatory Transsexualism [employer] 3 Ambulatory Rash and other nonspecific skin eruption [employer] 3 Ambulatory Presence of auto matic (implantable) cardiac defibrillator [employer] 3 Ambulatory Rash and other nonspecific skin eruption [employer] 2 Ambulatory Presence of auto matic (implantable) cardiac defibrillator [employer] 2 Inpatient End stage renal disease [employer] 2 Ambulatory Rash and other nonspecific skin eruption [employer] 2 Ambulatory Presence of auto matic (implantable) cardiac defibrillator [employer] 2 Emergency Hematuria, unspecified [facility] 2 Ambulatory Encounter for fertility preservation counseling [facility] 2 Ambulatory Dysthymic disorder [facility] 2 Ambulatory Acute bronchospasm [facility] 2 Ambulatory Acute upper respiratory infection, unspecified [employer] 2 Ambulatory Presence of auto matic (implantable) cardiac defibrillator [employer] 2 Ambulatory Transsexualism [facility] 2 Ambulatory Other specified abnormal findings of blood chemistry [employer] 2 Ambulatory Presence of auto matic (implantable) cardiac defibrillator [employer] 2 Ambulatory Other specified abnormal findings of blood chemistry [facility] 2 Ambulatory Essential (prima ry) hypertension [employer] 2 Ambulatory [facility] 2 Inpatient Cardiac arrest, cause unspecified [employer] 2 Ambulatory [facility] 2 Ambulatory [facility] 1 Ambulatory [facility] 1 Ambulatory [facility] 1 Ambulatory [facility] 1 Ambulatory Anxiety disorder , unspecified [employer] 1 Ambulatory End stage renal disease [facility] 1 Ambulatory Encounter for re moval of sutures [facility] 1 Ambulatory Anemia, unspecified [facility] 1 Ambulatory End stage renal disease [facility] 1 Care Team Organization Name Specialty Phone Email Start Date End Da te [facility] ME[facility]O Primary Care 03/25/2025 [facility] Primary Care 03[facility]25/2025 [facility] BENTLEY WILDER Primary Care 03/25/2025 [facility] 02/28/2025 [facility] 11/16/2023 [facility] ANGELO POWELL Primary Care 10/30/2023 [facility] 10/16/2023 024 [facility] 10/16/2023 024 [facility] 10/12/202310/30 [facility]ologists [facility] Primary Care 08/14/2023 [facility] 05/03/2023 024 [facility] Aimee Cruz Primary [facility] 05/17/2022 [facility] Aimee Cruz Primary [facility] 12/29/2021 12/29/2021 [facility] Aimee Cruz Primary [facility] 12/29/2021 [facility] Aimee Cruz Primary Care 02/10/2022 [facility] Umair Kaminski Primary Care 07/25/2021 02/18/2024 [facility] MINNA TIDWELL Primary Care 03/06/2021 [facility] 03/06/2021 05/17/2022
--- OUTSIDE RECORDS SUMMARY | 2025-03-29 14:08 | XMS_ITS ---
Author Organization [facility] ([facility]) Address [address] [place] [address] Care Team Providers Care Pr Internship Name Role Phone Unavailable Unavailable Unavailable Allergies, Adverse Reactions, Alerts Allergy Name Allergy Type Status Severity Reaction(s) Onset Date Inactive Date Treating Clinician Comments Chlorhexidine Allergy Active Unknown 2022-07 17:46: 32 Medications Ordered Medication Name Filled Medication Name Start Date Stop Date Current Medication? Ordering Clinician Indication Dosage Frequency Signature (SIG) Comments Components Venofer 03-22 21:56: 56 Yes [id number] Number of Repeats Allowed: Frequency: One time a weekDosesO rdered: Maintenanc e Dose 50 Milligram Route: Intravenou s ONS [facility] 02-23 23:47: 12 Yes [id number] Number of Repeats Allowed: Frequency: Every Dialysis Treatment calcitriol 8-14 21:20: 10 Yes [id number] Number of Repeats Allowed: Frequency: Three times a week Bar, Protein 8-08 04:00: 00 Yes [id number] Number of Repeats Allowed: Frequency: Three times a week Mircera 8- 04:00: 00 Yes [id number] Number of Repeats Allowed: Frequency: PORSHA dosing, every four weeks calcitriol 7-23 15:29: 40 Yes [id number] Number of Repeats Allowed: Frequency: Three times a week Mircera 6-23 16:31: 32 Yes [id number] Number of Repeats Allowed: Frequency: PORSHA dosing, every two weeks Mircera 0 5-24 23:53: 54 Yes [id number] Number of Repeats Allowed: Frequency: PORSHA dosing, every four weeks calcitriol 11-21 15:07: 29 Yes [id number] Number of Repeats Allowed: Frequency: Three times a week Venofer 11-21 13:26: 30 Yes [id number] Number of Repeats Allowed: Frequency: One time a weekDosesO rdered: Maintenanc e Dose 50 Milligram Route: Intravenou s MiraLax 10-29 20:53: 02 Yes Number of Repeats Allowed: Frequency: One time a day Remeron 10-29 20:51: 34 Yes Number of Repeats Allowed: Frequency: Once a day, at bedtime calcitriol 08-13 12:44: 55 Yes [id number] Number of Repeats Allowed: Frequency: Three times a week Losartan Potassium 2023-07 16:22: 43 Yes Number of Repeats Allowed: Frequency: One time a day MAGnesium-O xide 09-17 15:46: 18 Yes Number of Repeats Allowed: Frequency: As needed Ferrous Sulfate 2022-07 17:45: 42 Yes Number of Repeats Allowed: Frequency: One time a day Eliquis 2022-07 17:20: 09 Yes Number of Repeats Allowed: Frequency: Every twelve hours Tamsulosin HCl 10-26 18:35: 55 Yes Number of Repeats Allowed: Frequency: One time a day buPROPion HCl 03-16 17:11: 33 Yes Number of Repeats Allowed: Frequency: One time a day Vitamin E 03-16 17:08: 34 Yes Number of Repeats Allowed: Frequency: One time a day Zinc 03-16 17:06: 56 Yes Number of Repeats Allowed: Frequency: One time a day Vitamin B12 03-16 17:05: 23 Yes Number of Repeats Allowed: Frequency: One time a day Multivitami n 03-16 17:04: 46 Yes Number of Repeats Allowed: Frequency: One time a day Melatonin 03-16 17:04: 21 Yes Number of Repeats Allowed: Frequency: Once a day, at bedtime Furosemide 03-16 17:03: 33 Yes Number of Repeats Allowed: Frequency: One time a day Finasteride 03-16 17:03: 04 Yes Number of Repeats Allowed: Frequency: One time a day Carvedilol 03-16 17:01: 52 Yes Number of Repeats Allowed: Frequency: Two times a day Oxygen 02-26 04:00: 00 Yes [id number] Number of Repeats Allowed: Frequency: As needed Antacid Extra Strength 02-26 04:00: 00 Yes [id number] Number of Repeats Allowed: Frequency: Every 4 hours as needed acetaminoph en 02-26 04:00: 00 Yes [id number] Number of Repeats Allowed: Frequency: Every 4 hours as needed ondansetron hydrochlori de 02-26 04:00: 00 Yes [id number] Number of Repeats Allowed: Frequency: Every 8 hours as needed Normal Saline Solution 0.9% NaCl 02-26 04:00: 00 Yes [id number] Number of Repeats Allowed: Frequency: As needed diphenhydra mine hydrochlori de 02-26 04:00: 00 Yes [id number] Number of Repeats Allowed: Frequency: Every 4 hours as needed diphenhydra mine hydrochlori de 02-26 04:00: 00 Yes [id number] Number of Repeats Allowed: Frequency: Every 30 minutes as needed Problems Condition Name Condition Details Condition Category Status Onset Date Resolution Date Condition Entered On Date Treating Clinician Comments End-stage renal disease Problem List Item Active 2024-04-16 16:34:59 Procedures Procedure Date / Time Performed Performing Clinician Kelly ce Details AV Graft 2025-01-21 04:00:00 Access Surgeon ALEJANDRO LUTHER M.D. ([id number]),[place], [place] Access Site Upper Arm (Right) Access Use Start Date 2025-01-26 04:00:0 0 AV [id number] 05:00:00 Access Site Upper Arm (Right) Access Use Start Date 2021-09-08 05:00:0 0 Access Use End Date 2025-01-21 04:00:00 DIALYSIS TREATMENT INFORMATION Conventional Hemodialysis Date Type Treatment Start Date Treatment End Date Pre-Treatment Vitals Post-Treatment Vitals Weight Gain BFR DFR Actual UF Dialysis Access [facility] 2024 In-Ce nter Hemod ialys is Treat ment 2025-03-28 T10:58:26. 000Z 2025-03-28 T14:44:27. 000Z BP Sitting (Pre-Dialysis) 118/80 mmHg BP Sitting (Post-D ialysis ) 155/ 80 mmHg BP Standing (Pre-Dialysis) 122/82 mmHg BP Standing (P ost-Dialysis) 135/86 mmHg Sitting Heart Rate Pre-Dialysis 86 BPM Sitting Heart Rate Post-Dialysis 90 BPM Standing Heart Rate Pre-Dialysis 94 BPM Standing Heart Rate Post-Dialysis 93 BPM Temperature Pre-Dialysis 97.8 degF Temperature Post -Dialysis 98 degF March 24, 2025 In-Center Hemodialysis Treatment [id number]:20:36.000Z 8297-32-31V01:52:53.000Z BP Sitting (Pre-Dialysis) 123/81 mmHg BP Sitting (Post-Dialysis) 130/80 mmHg Concurrent Access: falseAV Graft Upper Arm (Right) Arterial BP Standing (Pre-Dialysis) 131/88 mmHg BP Standing (P ost-Dialysis) 120/80 mmHg Sitting Heart Rate Pre-Dialysis 88 BPM Sitting Heart Rate Post-Dialysis 80 BPM Standing Heart Rate Pre-Dialysis 92 BPM Standing Heart Rate Post-Dialysis 80 BPM Temperature Pre-Dialysis 97.9 degF Temperature Post -Dialysis 98 degF March 21, 2025 In-Center Hemodialysis Treatment [id number]:13:10.000Z 9753-65-88E30:18:25.000Z BP Sitting (Pre-Dialysis) 134/95 mmHg BP Sitting (Post-Dialysis) 145/80 mmHg Concurrent Access: falseAV Graft Upper Arm (Right) Arterial BP Standing (Pre-Dialysis) 133/92 mmHg BP Standing (P ost-Dialysis) 135/94 mmHg Sitting Heart Rate Pre-Dialysis 73 BPM Sitting Heart Rate Post-Dialysis 80 BPM Standing Heart Rate Pre-Dialysis 87 BPM Standing Heart Rate Post-Dialysis 80 BPM Temperature Pre-Dialysis 98 degF Temperature Post -Dialysis 98 degF March 19, 2025 In-Center Hemodialysis Treatment [id number]:29:17.000Z 7992-85-39Z05:30:48.000Z BP Sitting (Pre-Dialysis) 137/112 mmHg BP Sitting (Post-Dialysis) 150/100 mmHg Concurrent Access: falseAV Graft Upper Arm (Right) Arterial Sitting Heart Rate Pre-Dialysis 94 BPM BP Standing (Post-Dialysis) 132/91 mmHg Temperature Pre-Dialysis 98.1 degF Sitting Heart Ra te Post-Dialysis 103 BPM Standing Heart Rate Post-Cuca lysis 104 BPM Temperature Post-Dialysis 98 degF March 17, 2025 In-Center Hemodialysis Treatment 9543-06-46E75:02:31.000Z 5672-03-97M65:08:01.000Z BP Sitting (Pre-Dialysis) 119/80 mmHg BP Sitting (Post-Dialysis) 207/117 mmHg Concurrent Access: falseAV Graft Upper Arm (Right) Arterial Sitting Heart Rate Pre-Dialysis 98 BPM BP Standing (Post-Dialysis) 127/81 mmHg Temperature Pre-Dialysis 97.6 degF Sitting Heart Ra te Post-Dialysis 80 BPM Standing Heart Rate Post-Cuca lysis 80 BPM Temperature Post-Dialysis 98 degF March 14, 2025 In-Center Hemodialysis Treatment 3911-05-69P68:32:37.000Z 6794-13-42W14:21:11.000Z BP Sitting (Pre-Dialysis) 128/94 mmHg BP Sitting (Post-Dialysis) 140/60 mmHg Concurrent Access: falseAV Graft Upper Arm (Right) Arterial BP Standing (Pre-Dialysis) 127/83 mmHg BP Standing (P ost-Dialysis) 121/76 mmHg Sitting Heart Rate Pre-Dialysis 97 BPM Sitting Heart Rate Post-Dialysis 80 BPM Standing Heart Rate Pre-Dialysis 97 BPM Standing Heart Rate Post-Dialysis 80 BPM Temperature Pre-Dialysis 97.6 degF Temperature Post -Dialysis 97.8 degF March 12, 2025 In-Center Hemodialysis Treatment [id number]:40:00.000Z 8933-08-41U15:01:00.000Z BP Sitting (Pre-Dialysis) 127/82 mmHg BP Sitting (Post-Dialysis) 166/60 mmHg Concurrent Access: falseAV Graft Upper Arm (Right) Arterial BP Standing (Pre-Dialysis) 126/81 mmHg Sitting Heart Rate Post-Dialysis 96 BPM Sitting Heart Rate Pre-Dialysis 81 BPM Temperatu re Post-Dialysis 98 degF Standing Heart Rate Pre-Dialysis 82 BPM Temperature Pre-Dialysis 98 degF March 05, 2025 In-Center Hemodialysis Treatment [id number]:29:28.000Z 2846-11-83J42:28:16.000Z BP Sitting (Pre-Dialysis) 105/70 mmHg BP Sitting (Post-Dialysis) 150/80 mmHg Concurrent Access: falseAV Graft Upper Arm (Right) Arterial Sitting Heart Rate Pre-Dialysis 91 BPM BP Standi ng (Post-Dialysis) 128/95 mmHg Temperature Pre-Dialysis 98 degF Sitting Heart Ra te Post-Dialysis 85 BPM Standing Heart Rate Post-Cuca lysis 40 BPM Temperature Post-Dialysis 98 degF February 28, 2025 In-Center Hemodialysis Treatment [id number]:24:49.000Z 0827-05-38N28:17:20.000Z BP Sitting (Pre-Dialysis) 125/91 mmHg BP Sitting (Post-Dialysis) 150/80 mmHg Concurrent Access: falseAV Graft Upper Arm (Right) Arterial Sitting Heart Rate Pre-Dialysis 117 BPM BP Standing (Post-Dialysis) 133/68 mmHg Temperature Pre-Dialysis 98.4 degF Sitting Heart Ra te Post-Dialysis 85 BPM Standing Heart Rate Post-Cuca lysis 96 BPM Temperature Post-Dialysis 97 .5 degF February 26, 2025 In-Center Hemodialysis Treatment [id number]:52:57.000Z 7253-44-72Y51:41:28.000Z BP Sitting (Pre-Dialysis) 131/80 mmHg BP Sitting (Post-Dialysis) 133/104 mmHg Concurrent Access: falseAV Graft Upper Arm (Right) Arterial Sitting Heart Rate Pre-Dialysis 95 BPM Sitting H eart Rate Post-Dialysis 109 BPM Temperature Pre-Dialysis 98 degF Temperature Post -Dialysis 98 degF February 24, 2025 In-Center Hemodialysis Treatment [id number]:24:18.000Z 4511-31-87O25:54:18.000Z BP Sitting (Pre-Dialysis) 145/103 mmHg BP Sitting (Post-Dialysis) 189/102 mmHg Concurrent Access: falseAV Graft Upper Arm (Right) Arterial Sitting Heart Rate Pre-Dialysis 98 BPM BP Standi ng (Post-Dialysis) 170/80 mmHg Temperature Pre-Dialysis 97 degF Sitting Heart Ra te Post-Dialysis 86 BPM Standing Heart Rate Post-Cuca lysis 80 BPM Temperature Post-Dialysis 97 .8 degF February 21, 2025 In-Center Hemodialysis Treatment 3557-19-29H34:13:16.000Z 8312-92-39I29:06:16.000Z BP Sitting (Pre-Dialysis) 119/75 mmHg BP Sitting (Post-Dialysis) 127/85 mmHg Concurrent Access: falseAV Graft Upper Arm (Right) Arterial Sitting Heart Rate Pre-Dialysis 103 BPM Sitting H eart Rate Post-Dialysis 72 BPM Temperature Pre-Dialysis 97 degF Temperature Post -Dialysis 98 degF February 19, 2025 In-Center Hemodialysis Treatment [id number]:56:00.000Z 5767-93-63Q53:40:34.000Z BP Sitting (Pre-Dialysis) 117/77 mmHg BP Sitting (Post-Dialysis) 133/73 mmHg Concurrent Access: falseAV Graft Upper Arm (Right) Arterial BP Standing (Pre-Dialysis) 117/80 mmHg BP Standing (P ost-Dialysis) 118/83 mmHg Sitting Heart Rate Pre-Dialysis 80 BPM Sitting Heart Rate Post-Dialysis 80 BPM Standing Heart Rate Pre-Dialysis 74 BPM Standing Heart Rate Post-Dialysis 99 BPM Temperature Pre-Dialysis 97.4 degF Temperature Post -Dialysis 98 degF February 10, 2025 In-Center Hemodialysis Treatment 4229-08-49K41:48:49.000Z 6813-81-56X81:40:04.000Z BP Sitting (Pre-Dialysis) 131/85 mmHg BP Sitting (Post-Dialysis) 128/90 mmHg Concurrent Access: falseAV Graft Upper Arm (Right) Arterial Sitting Heart Rate Pre-Dialysis 139 BPM Sitting H eart Rate Post-Dialysis 99 BPM Temperature Pre-Dialysis 97.8 degF Temperature Post -Dialysis 97.6 degF February 07, 2025 In-Center Hemodialysis Treatment 8426-44-87H98:43:57.000Z 6141-76-46S75:36:47.000Z BP Sitting (Pre-Dialysis) 156/99 mmHg BP Sitting (Post-Dialysis) 173/86 mmHg Concurrent Access: falseAV Graft Upper Arm (Right) Arterial Sitting Heart Rate Pre-Dialysis 105 BPM Sitting H eart Rate Post-Dialysis 65 BPM Temperature Pre-Dialysis 97.1 degF Temperature Post -Dialysis 97.5 degF February 05, 2025 In-Center Hemodialysis Treatment 6061-16-16J02:49:08.000Z 1166-54-93A63:47:10.000Z BP Sitting (Pre-Dialysis) 117/81 mmHg BP Sitting (Post-Dialysis) 148/82 mmHg Concurrent Access: falseAV Graft Upper Arm (Right) Arterial BP Standing (Pre-Dialysis) 118/75 mmHg BP Standing (P ost-Dialysis) 131/73 mmHg Sitting Heart Rate Pre-Dialysis 91 BPM Sitting Heart Rate Post-Dialysis 80 BPM Standing Heart Rate Pre-Dialysis 95 BPM Standing Heart Rate Post-Dialysis 85 BPM Temperature Pre-Dialysis 97.1 degF Temperature Post -Dialysis 97.5 degF January 29, 2025 In-Center Hemodialysis Treatment 4311-11-53P87:18:37.000Z 2478-93-22E77:07:15.000Z BP Sitting (Pre-Dialysis) 129/77 mmHg BP Sitting (Post-Dialysis) 126/81 mmHg Concurrent Access: falseAV Graft Upper Arm (Right) Arterial Sitting Heart Rate Pre-Dialysis 100 BPM BP Standing (Post-Dialysis) 127/86 mmHg Temperature Pre-Dialysis 96.6 degF Sitting Heart Ra te Post-Dialysis 101 BPM Standing Heart Rate Post-Cuca lysis 101 BPM Temperature Post-Dialysis 98 degF January 27, 2025 In-Center Hemodialysis Treatment [id number]:21:38.000Z 1570-40-91E00:12:29.000Z BP Sitting (Pre-Dialysis) 116/76 mmHg BP Sitting (Post-Dialysis) 139/93 mmHg Concurrent Access: falseAV Graft Upper Arm (Right) Arterial Sitting Heart Rate Pre-Dialysis 96 BPM Sitting H eart Rate Post-Dialysis 93 BPM Temperature Pre-Dialysis 97.3 degF Temperature Post -Dialysis 98 degF January 24, 2025 In-Center Hemodialysis Treatment BP Sitting (Pre-Dialysis) 132/80 mmHg Concurrent Access: falseAV Graft Upper Arm (Right) Arterial BP Standing (Pre-Dialysis) 132/84 mmHg Sitting Heart Rate Pre-Dialysis 86 BPM Standing Heart Rate Pre-Dialysis 80 BPM Temperature Pre-Dialysis 97.6 degF January 17, 2025 In-Center Hemodialysis Treatment 2663-42-08B29:05:00.000Z 1164-41-65W43:24:49.000Z BP Sitting (Pre-Dialysis) 113/102 Eosinophils [#/volume] in Blood by Automated count 2025-03-20 14:01:14 83 Cells/uL F 0.0-700.0 Basophils [#/volume] in Blood by Automated count 2025-02-20 20:33:11 24 Cells/uL F 0.0-400.0 Neutrophils/100 leukocytes in Blood by Automated count 2025-02-20 20:33:11 80.3 % F Basophils/100 leukocytes in Blood by Automated count 2025-02-20 20:33:11 0.3 % F Eosinophils/100 leukocytes in Blood by Automated count 2025-02-20 20:33:11 1.3 % F Eosinophils [#/volume] in Blood by Automated count 2025-02-20 20:33:11 106 Cells/uL F 0.0-700.0 Leukocytes [#/volume] in Blood by Automated count 2025-02-20 20:33:11 8.2 x 10^3 cells/uL F 4.0-11.0 Neutrophils [#/volume] in Blood by Automated count 2025-02-20 20:33:11 6552 Cells/uL F 2000.0-8800. 0 Monocytes/100 leukocytes in Blood by Automated count 2025-02-20 20:33:11 5.2 % F Lymphocytes [#/volume] in Blood by Automated count 2025-02-20 20:33:11 1061 Cells/uL F 620.0-3660.0 Monocytes [#/volume] in Blood by Automated count 2025-02-20 20:33:11 424 Cells/uL F 0.0-1100.0 Lymphocytes/100 leukocytes in Blood by Automated count 2025-02-20 20:33:11 13 % F Eosinophils [#/volume] in Blood by Automated count 2025-02-20 20:33:11 106 Cells/uL F 0.0-700.0 Eosinophils/100 leukocytes in Blood by Automated count 2025-02-20 20:33:11 1.3 % F Lymphocytes [#/volume] in Blood by Automated count 2025-02-20 20:33:11 1061 Cells/uL F 620.0-3660.0 Leukocytes [#/volume] in Blood by Automated count 2025-02-20 20:33:11 8.2 x 10^3 cells/uL F 4.0-11.0 Lymphocytes/100 leukocytes in Blood by Automated count 2025-02-20 20:33:11 13 % F Monocytes/100 leukocytes in Blood by Automated count 2025-02-20 20:33:11 5.2 % F Basophils [#/volume] in Blood by Automated count 2025-02-20 20:33:11 24 Cells/uL F 0.0-400.0 Basophils/100 leukocytes in Blood by Automated count 2025-02-20 20:33:11 0.3 % F Neutrophils [#/volume] in Blood by Automated count 2025-02-20 20:33:11 6552 Cells/uL F 2000.0-8800. 0 Neutrophils/100 leukocytes in Blood by Automated count 2025-02-20 20:33:11 80.3 % F Monocytes [#/volume] in Blood by Automated count 2025-02-20 20:33:11 424 Cells/uL F 0.0-1100.0 Eosinophils/100 leukocytes in Blood by Automated count 2025-02-20 20:33:11 1.3 % F Neutrophils/100 leukocytes in Blood by Automated count 2025-02-20 20:33:11 80.3 % F Monocytes/100 leukocytes in Blood by Automated count 2025-02-20 20:33:11 5.2 % F Lymphocytes/100 leukocytes in Blood by Automated count 2025-02-20 20:33:11 13 % F Basophils/100 leukocytes in Blood by Automated count 2025-02-20 20:33:11 0.3 % F Monocytes [#/volume] in Blood by Automated count 2025-02-20 20:33:11 424 Cells/uL F 0.0-1100.0 Basophils [#/volume] in Blood by Automated count 2025-02-20 20:33:11 24 Cells/uL F 0.0-400.0 Eosinophils [#/volume] in Blood by Automated count 2025-02-20 20:33:11 106 Cells/uL F 0.0-700.0 Neutrophils [#/volume] in Blood by Automated count 2025-02-20 20:33:11 6552 Cells/uL F 2000.0-8800. 0 Leukocytes [#/volume] in Blood by Automated count 2025-02-20 20:33:11 8.2 x 10^3 cells/uL F 4.0-11.0 Lymphocytes [#/volume] in Blood by Automated count 2025-02-20 20:33:11 1061 Cells/uL F 620.0-3660.0 Basophils/100 leukocytes in Blood by Automated count 2025-01-28 17:49:11 1 % F Neutrophils/100 leukocytes in Blood by Automated count 2025-01-28 17:49:11 66.9 % F Lymphocytes/100 leukocytes in Blood by Automated count 2025-01-28 17:49:11 21.9 % F Monocytes/100 leukocytes in Blood by Automated count 2025-01-28 17:49:11 6.8 % F Eosinophils/100 leukocytes in Blood by Automated count 2025-01-28 17:49:11 3.4 % F Leukocytes [#/volume] in Blood by Automated count 2025-01-28 17:49:11 7.3 x 10^3 cells/uL F 4.0-11.0 Neutrophils [#/volume] in Blood by Automated count 2025-01-28 17:49:11 4857 Cells/uL F 2000.0-8800. 0 Lymphocytes [#/volume] in Blood by Automated count 2025-01-28 17:49:11 1590 Cells/uL F 620.0-3660.0 Monocytes [#/volume] in Blood by Automated count 2025-01-28 17:49:11 494 Cells/uL F 0.0-1100.0 Eosinophils [#/volume] in Blood by Automated count 2025-01-28 17:49:11 247 Cells/uL F 0.0-700.0 Basophils [#/volume] in Blood by Automated count 2025-01-28 17:49:11 73 Cells/uL F 0.0-400.0 Monocytes [#/volume] in Blood by Automated count 2024-12-19 13:50:13 507 Cells/uL F 0.0-1100.0 Leukocytes [#/volume] in Blood by Automated count 2024-12-19 13:50:13 7.6 x 10^3 cells/uL F 4.0-11.0 Lymphocytes/100 leukocytes in Blood by Automated count 2024-12-19 13:50:13 26 % F Monocytes/100 leukocytes in Blood by Automated count 2024-12-19 13:50:13 6.7 % F Basophils/100 leukocytes in Blood by Automated count 2024-12-19 13:50:13 0.3 % F Basophils [#/volume] in Blood by Automated count 2024-12-19 13:50:13 23 Cells/uL F 0.0-400.0 Neutrophils [#/volume] in Blood by Automated count 2024-12-19 13:50:13 4936 Cells/uL F 2000.0-8800. 0 Neutrophils/100 leukocytes in Blood by Automated count 2024-12-19 13:50:13 65.2 % F Lymphocytes [#/volume] in Blood by Automated count 2024-12-19 13:50:13 1968 Cells/uL F 620.0-3660.0 Eosinophils/100 leukocytes in Blood by Automated count 2024-12-19 13:50:13 1.8 % F Eosinophils [#/volume] in Blood by Automated count 2024-12-19 13:50:13 136 Cells/uL F 0.0-700.0 Neutrophils/100 leukocytes in Blood by Automated count 2024-12-19 13:50:13 65.2 % F Eosinophils/100 leukocytes in Blood by Automated count 2024-12-19 13:50:13 1.8 % F Monocytes/100 leukocytes in Blood by Automated count 2024-12-19 13:50:13 6.7 % F Basophils/100 leukocytes in Blood by Automated count 2024-12-19 13:50:13 0.3 % F Lymphocytes/100 leukocytes in Blood by Automated count 2024-12-19 13:50:13 26 % F Monocytes [#/volume] in Blood by Automated count 2024-12-19 13:50:13 507 Cells/uL F 0.0-1100.0 Eosinophils [#/volume] in Blood by Automated count 2024-12-19 13:50:13 136 Cells/uL F 0.0-700.0 Basophils [#/volume] in Blood by Automated count 2024-12-19 13:50:13 23 Cells/uL F 0.0-400.0 Neutrophils [#/volume] in Blood by Automated count 2024-12-19 13:50:13 4936 Cells/uL F 2000.0-8800. 0 Leukocytes [#/volume] in Blood by Automated count 2024-12-19 13:50:13 7.6 x 10^3 cells/uL F 4.0-11.0 Lymphocytes [#/volume] in Blood by Automated count 2024-12-19 13:50:13 1968 Cells/uL F 620.0-3660.0 Eosinophils/100 leukocytes in Blood by Automated count 2024-12-19 13:50:13 1.8 % F Neutrophils/100 leukocytes in Blood by Automated count 2024-12-19 13:50:13 65.2 % F Monocytes/100 leukocytes in Blood by Automated count 2024-12-19 13:50:13 6.7 % F Basophils/100 leukocytes in Blood by Automated count 2024-12-19 13:50:13 0.3 % F Lymphocytes/100 leukocytes in Blood by Automated count 2024-12-19 13:50:13 26 % F Basophils [#/volume] in Blood by Automated count 2024-12-19 13:50:13 23 Cells/uL F 0.0-400.0 Eosinophils [#/volume] in Blood by Automated count 2024-12-19 13:50:13 136 Cells/uL F 0.0-700.0 Monocytes [#/volume] in Blood by Automated count 2024-12-19 13:50:13 507 Cells/uL F 0.0-1100.0 Leukocytes [#/volume] in Blood by Automated count 2024-12-19 13:50:13 7.6 x 10^3 cells/uL F 4.0-11.0 Neutrophils [#/volume] in Blood by Automated count 2024-12-19 13:50:13 4936 Cells/uL F 2000.0-8800. 0 Lymphocytes [#/volume] in Blood by Automated count 2024-12-19 13:50:13 1968 Cells/uL F 620.0-3660.0 Basophils/100 leukocytes in Blood by Automated count 2024-11-08 00:16:11 0.5 % F Leukocytes [#/volume] in Blood by Automated count 2024-11-08 00:16:11 7.5 x 10^3 cells/uL F 4.0-11.0 Monocytes [#/volume] in Blood by Automated count 2024-11-08 00:16:11 398 Cells/uL F 0.0-1100.0 Lymphocytes/100 leukocytes in Blood by Automated count 2024-11-08 00:16:11 23 % F Lymphocytes [#/volume] in Blood by Automated count 2024-11-08 00:16:11 1727 Cells/uL F 620.0-3660.0 Monocytes/100 leukocytes in Blood by Automated count 2024-11-08 00:16:11 5.3 % F Eosinophils [#/volume] in Blood by Automated count 2024-11-08 00:16:11 143 Cells/uL F 0.0-700.0 Neutrophils/100 leukocytes in Blood by Automated count 2024-11-08 00:16:11 69.2 % F Basophils [#/volume] in Blood by Automated count 2024-11-08 00:16:11 38 Cells/uL F 0.0-400.0 Eosinophils/100 leukocytes in Blood by Automated count 2024-11-08 00:16:11 1.9 % F Neutrophils [#/volume] in Blood by Automated count 2024-11-08 00:16:11 5197 Cells/uL F 2000.0-8800. 0 Basophils/100 leukocytes in Blood by Automated count 2024-11-08 00:16:11 0.5 % F Lymphocytes [#/volume] in Blood by Automated count 2024-11-08 00:16:11 1727 Cells/uL F 620.0-3660.0 Neutrophils/100 leukocytes in Blood by Automated count 2024-11-08 00:16:11 69.2 % F Lymphocytes/100 leukocytes in Blood by Automated count 2024-11-08 00:16:11 23 % F Eosinophils/100 leukocytes in Blood by Automated count 2024-11-08 00:16:11 1.9 % F Eosinophils [#/volume] in Blood by Automated count 2024-11-08 00:16:11 143 Cells/uL F 0.0-700.0 Basophils [#/volume] in Blood by Automated count 2024-11-08 00:16:11 38 Cells/uL F 0.0-400.0 Leukocytes [#/volume] in Blood by Automated count 2024-11-08 00:16:11 7.5 x 10^3 cells/uL F 4.0-11.0 Monocytes/100 leukocytes in Blood by Automated count 2024-11-08 00:16:11 5.3 % F Monocytes [#/volume] in Blood by Automated count 2024-11-08 00:16:11 398 Cells/uL F 0.0-1100.0 Neutrophils [#/volume] in Blood by Automated count 2024-11-08 00:16:11 5197 Cells/uL F 2000.0-8800. 0 Basophils/100 leukocytes in Blood by Automated count 2024-11-08 00:16:11 0.5 % F Eosinophils/100 leukocytes in Blood by Automated count 2024-11-08 00:16:11 1.9 % F Lymphocytes/100 leukocytes in Blood by Automated count 2024-11-08 00:16:11 23 % F Monocytes/100 leukocytes in Blood by Automated count 2024-11-08 00:16:11 5.3 % F Neutrophils/100 leukocytes in Blood by Automated count 2024-11-08 00:16:11 69.2 % F Monocytes [#/volume] in Blood by Automated count 2024-11-08 00:16:11 398 Cells/uL F 0.0-1100.0 Basophils [#/volume] in Blood by Automated count 2024-11-08 00:16:11 38 Cells/uL F 0.0-400.0 Eosinophils [#/volume] in Blood by Automated count 2024-11-08 00:16:11 143 Cells/uL F 0.0-700.0 Neutrophils [#/volume] in Blood by Automated count 2024-11-08 00:16:11 5197 Cells/uL F 2000.0-8800. 0 Leukocytes [#/volume] in Blood by Automated count 2024-11-08 00:16:11 7.5 x 10^3 cells/uL F 4.0-11.0 Lymphocytes [#/volume] in Blood by Automated count 2024-11-08 00:16:11 1727 Cells/uL F 620.0-3660.0 Monocytes/100 leukocytes in Blood by Automated count 2024-09-19 21:26:22 6.1 % F Neutrophils/100 leukocytes in Blood by Automated count 2024-09-19 21:26:22 61.8 % F Eosinophils/100 leukocytes in Blood by Automated count 2024-09-19 21:26:22 2.2 % F Basophils/100 leukocytes in Blood by Automated count 2024-09-19 21:26:22 0.5 % F Lymphocytes/100 leukocytes in Blood by Automated count 2024-09-19 21:26:22 29.4 % F Monocytes [#/volume] in Blood by Automated count 2024-09-19 21:26: 481 Cells/uL F 0.0-1100.0 Eosinophils [#/volume] in Blood by Automated count 2024-09-19 21:: 174 Cells/uL F 0.0-700.0 Basophils [#/volume] in Blood by Automated count 2024-09-19 21::22 39 Cells/uL F 0.0-400.0 Neutrophils [#/volume] in Blood by Automated count 2024-09-19 21:26:22 4876 Cells/uL F 2000.0-8800. 0 Leukocytes [#/volume] in Blood by Automated count 2024-09-19 21:26:22 7.9 x 10^3 cells/uL F 4.0-11.0 Lymphocytes [#/volume] in Blood by Automated count 2024-09-19 21::22 2320 Cells/uL F 620.0-3660.0 Eosinophils/100 leukocytes in Blood by Automated count 2024-08-29 17:02:39 F RECOLLECT - OUTDATED SPECIMEN Monocytes [#/volume] in Blood by Automated count 2024-08-29 17:02:39 F RECOLLECT - OUTDATED SPECIMEN Neutrophils/100 leukocytes in Blood by Automated count 2024-08-29 17:02:39 F RECOLLECT - OUTDATED SPECIMEN,WBC differential count percentage results will continue to be reported without reference ranges per [employer] guidelines and will not be flagged Normal of Abnormal. Refer to Absolute Differential counts for reference ranges. Basophils/100 leukocytes in Blood by Automated count 2024-08-29 17:02:39 F RECOLLECT - OUTDATED SPECIMEN Leukocytes [#/volume] in Blood by Automated count 2024-08-29 17:02:39 F RECOLLECT - OUTDATED SPECIMEN Eosinophils [#/volume] in Blood by Automated count 2024-08-29 17:02:39 F RECOLLECT - OUTDATED SPECIMEN Basophils [#/volume] in Blood by Automated count 2024-08-29 17:02:39 F RECOLLECT - OUTDATED SPECIMEN Neutrophils [#/volume] in Blood by Automated count 2024-08-29 17:02:39 F RECOLLECT - OUTDATED SPECIMEN Lymphocytes [#/volume] in Blood by Automated count 2024-08-29 17:02:39 F RECOLLECT - OUTDATED SPECIMEN Lymphocytes/100 leukocytes in Blood by Automated count 2024-08-29 17:02:39 F RECOLLECT - OUTDATED SPECIMEN Monocytes/100 leukocytes in Blood by Automated count 2024-08-29 17:02:39 F RECOLLECT - OUTDATED SPECIMEN Monocytes [#/volume] in Blood by Automated count 2024-08-29 17:02:39 F RECOLLECT - OUTDATED SPECIMEN Leukocytes [#/volume] in Blood by Automated count 2024-08-29 17:02:39 F RECOLLECT - OUTDATED SPECIMEN Neutrophils/100 leukocytes in Blood by Automated count 2024-08-29 17:02:39 F RECOLLECT - OUTDATED SPECIMEN,WBC differential count percentage results will continue to be reported without reference ranges per [employer] guidelines and will not be flagged Normal of Abnormal. Refer to Absolute Differential counts for reference ranges. Basophils [#/volume] in Blood by Automated count 2024-08-29 17:02:39 F RECOLLECT - OUTDATED SPECIMEN Neutrophils [#/volume] in Blood by Automated count 2024-08-29 17:02:39 F RECOLLECT - OUTDATED SPECIMEN Eosinophils [#/volume] in Blood by Automated count 2024-08-29 17:02:39 F RECOLLECT - OUTDATED SPECIMEN Basophils/100 leukocytes in Blood by Automated count 2024-08-29 17:02:39 F RECOLLECT - OUTDATED SPECIMEN Monocytes/100 leukocytes in Blood by Automated count 2024-08-29 17:02:39 F RECOLLECT - OUTDATED SPECIMEN Lymphocytes [#/volume] in Blood by Automated count 2024-08-29 17:02:39 F RECOLLECT - OUTDATED SPECIMEN Lymphocytes/100 leukocytes in Blood by Automated count 2024-08-29 17:02:39 F RECOLLECT - OUTDATED SPECIMEN Eosinophils/100 leukocytes in Blood by Automated count 2024-08-29 17:02:39 F RECOLLECT - OUTDATED SPECIMEN Basophils [#/volume] in Blood by Automated count 2024-08-23 02:36:10 F Recollect - Clot Detected Monocytes [#/volume] in Blood by Automated count 2024-08-23 02:36:10 F Recollect - Clot Detected Lymphocytes [#/volume] in Blood by Automated count 2024-08-23 02:36:10 F Recollect - Clot Detected Eosinophils [#/volume] in Blood by Automated count 2024-08-23 02:36:10 F Recollect - Clot Detected Neutrophils [#/volume] in Blood by Automated count 2024-08-23 02:36:10 F Recollect - Clot Detected Eosinophils [#/volume] in Blood by Automated count 2024-08-23 02:36:10 F Recollect - Clot Detected Neutrophils [#/volume] in Blood by Automated count 2024-08-23 02:36:10 F Recollect - Clot Detected Basophils [#/volume] in Blood by Automated count 2024-08-23 02:36:10 F Recollect - Clot Detected Lymphocytes [#/volume] in Blood by Automated count 2024-08-23 02:36:10 F Recollect - Clot Detected Monocytes [#/volume] in Blood by Automated count 2024-08-23 02:36:10 F Recollect - Clot Detected Eosinophils [#/volume] in Blood by Automated count 2024-08-23 02:36:10 F Recollect - Clot Detected Monocytes [#/volume] in Blood by Automated count 2024-08-23 02:36:10 F Recollect - Clot Detected Basophils [#/volume] in Blood by Automated count 2024-08-23 02:36:10 F Recollect - Clot Detected Lymphocytes [#/volume] in Blood by Automated count 2024-08-23 02:36:10 F Recollect - Clot Detected Neutrophils [#/volume] in Blood by Automated count 2024-08-23 02:36:10 F Recollect - Clot Detected Leukocytes [#/volume] in Blood by Automated count 2024-08-23 02:36:09 F Recollect - Clot Detected Leukocytes [#/volume] in Blood by Automated count 2024-08-23 02:36:09 F Recollect - Clot Detected Leukocytes [#/volume] in Blood by Automated count 2024-08-23 02:36:09 F Recollect - Clot Detected Basophils/100 leukocytes in Blood by Automated count 2024-08-23 02:36:08 F Recollect - Clot Detected Lymphocytes/100 leukocytes in Blood by Automated count 2024-08-23 02:36:08 F Recollect - Clot Detected Eosinophils/100 leukocytes in Blood by Automated count 2024-08-23 02:36:08 F Recollect - Clot Detected Neutrophils/100 leukocytes in Blood by Automated count 2024-08-23 02:36:08 F Recollect - Clot Detected Monocytes/100 leukocytes in Blood by Automated count 2024-08-23 02:36:08 F Recollect - Clot Detected Eosinophils/100 leukocytes in Blood by Automated count 2024-08-23 02:36:08 F Recollect - Clot Detected Lymphocytes/100 leukocytes in Blood by Automated count 2024-08-23 02:36:08 F Recollect - Clot Detected Neutrophils/100 leukocytes in Blood by Automated count 2024-08-23 02:36:08 F Recollect - Clot Detected Monocytes/100 leukocytes in Blood by Automated count 2024-08-23 02:36:08 F Recollect - Clot Detected Basophils/100 leukocytes in Blood by Automated count 2024-08-23 02:36:08 F Recollect - Clot Detected Lymphocytes/100 leukocytes in Blood by Automated count 2024-08-23 02:36:08 F Recollect - Clot Detected Monocytes/100 leukocytes in Blood by Automated count 2024-08-23 02:36:08 F Recollect - Clot Detected Basophils/100 leukocytes in Blood by Automated count 2024-08-23 02:36:08 F Recollect - Clot Detected Neutrophils/100 leukocytes in Blood by Automated count 2024-08-23 02:36:08 F Recollect - Clot Detected Eosinophils/100 leukocytes in Blood by Automated count 2024-08-23 02:36:08 F Recollect - Clot Detected Eosinophils/100 leukocytes in Blood by Automated count 2024-05-23 19:18:10 4.2 % F Monocytes/100 leukocytes in Blood by Automated count 2024-05-23 19:18:10 5.9 % F Basophils/100 leukocytes in Blood by Automated count 2024-05-23 19:18:10 1 % F Lymphocytes/100 leukocytes in Blood by Automated count 2024-05-23 19:18:10 28.4 % F Neutrophils/100 leukocytes in Blood by Automated count 2024-05-23 19:18:10 60.5 % F Monocytes [#/volume] in Blood by Automated count 2024-05-23 19:18:10 543 Cells/uL F 0.0-1100.0 Basophils [#/volume] in Blood by Automated count 2024-05-23 19:18:10 92 Cells/uL F 0.0-400.0 Eosinophils [#/volume] in Blood by Automated count 2024-05-23 19:18:10 386 Cells/uL F 0.0-700.0 Neutrophils [#/volume] in Blood by Automated count 2024-05-23 19:18:10 5566 Cells/uL F 2000.0-8800. 0 Leukocytes [#/volume] in Blood by Automated count 2024-05-23 19:18:10 9.2 x 10^3 cells/uL F 4.0-11.0 Lymphocytes [#/volume] in Blood by Automated count 2024-05-23 19:18:10 2613 Cells/uL F 620.0-3660.0 Lymphocytes/100 leukocytes in Blood by Automated count 2024-05-23 19:18:10 28.4 % F Monocytes/100 leukocytes in Blood by Automated count 2024-05-23 19:18:10 5.9 % F Neutrophils/100 leukocytes in Blood by Automated count 2024-05-23 19:18:10 60.5 % F Eosinophils/100 leukocytes in Blood by Automated count 2024-05-23 19:18:10 4.2 % F Basophils/100 leukocytes in Blood by Automated count 2024-05-23 19:18:10 1 % F Monocytes [#/volume] in Blood by Automated count 2024-05-23 19:18:10 543 Cells/uL F 0.0-1100.0 Basophils [#/volume] in Blood by Automated count 2024-05-23 19:18:10 92 Cells/uL F 0.0-400.0 Eosinophils [#/volume] in Blood by Automated count 2024-05-23 19:18:10 386 Cells/uL F 0.0-700.0 Neutrophils [#/volume] in Blood by Automated count 2024-05-23 19:18:10 5566 Cells/uL F 2000.0-8800. 0 Leukocytes [#/volume] in Blood by Automated count 2024-05-23 19:18:10 9.2 x 10^3 cells/uL F 4.0-11.0 Lymphocytes [#/volume] in Blood by Automated count 2024-05-23 19:18:10 2613 Cells/uL F 620.0-3660.0 Monocytes/100 leukocytes in Blood by Automated count 2024-05-23 19:18:10 5.9 % F Eosinophils/100 leukocytes in Blood by Automated count 2024-05-23 19:18:10 4.2 % F Basophils/100 leukocytes in Blood by Automated count 2024-05-23 19:18:10 1 % F Neutrophils/100 leukocytes in Blood by Automated count 2024-05-23 19:18:10 60.5 % F Lymphocytes/100 leukocytes in Blood by Automated count 2024-05-23 19:18:10 28.4 % F Monocytes [#/volume] in Blood by Automated count 2024-05-23 19:18:10 543 Cells/uL F 0.0-1100.0 Basophils [#/volume] in Blood by Automated count 2024-05-23 19:18:10 92 Cells/uL F 0.0-400.0 Eosinophils [#/volume] in Blood by Automated count 2024-05-23 19:18:10 386 Cells/uL F 0.0-700.0 Neutrophils [#/volume] in Blood by Automated count 2024-05-23 19:18:10 5566 Cells/uL F 2000.0-8800. 0 Leukocytes [#/volume] in Blood by Automated count 2024-05-23 19:18:10 9.2 x 10^3 cells/uL F 4.0-11.0 Lymphocytes [#/volume] in Blood by Automated count 2024-05-23 19:18:10 2613 Cells/uL F 620.0-3660.0 Lymphocytes/100 leukocytes in Blood by Automated count 2023-09-21 15:56:31 33 % F Monocytes/100 leukocytes in Blood by Automated count 2023-09-21 15:56:31 7.5 % F Basophils/100 leukocytes in Blood by Automated count 2023-09-21 15:56:31 0.4 % F Eosinophils/100 leukocytes in Blood by Automated count 2023-09-21 15:56:31 2.3 % F Monocytes [#/volume] in Blood by Automated count 2023-09-21 15:56:31 523 Cell/uL F 0.0-1100.0 Neutrophils/100 leukocytes in Blood by Automated count 2023-09-21 15:56:31 56.8 % F Basophils [#/volume] in Blood by Automated count 2023-09-21 15:56:31 28 Cell/uL F 0.0-400.0 Eosinophils [#/volume] in Blood by Automated count 2023-09-21 15:56:31 160 Cell/uL F 0.0-700.0 Neutrophils [#/volume] in Blood by Automated count 2023-09-21 15:56:31 3959 Cell/uL F 2000.0-8800. 0 Leukocytes [#/volume] in Blood by Automated count 2023-09-21 15:56:31 7 x 10^3 cells/uL F 4.0-11.0 Lymphocytes [#/volume] in Blood by Automated count 2023-09-21 15:56:31 2300 Cell/uL F 620.0-3660.0 Lymphocytes/100 leukocytes in Blood by Automated count 2023-08-24 17:50:20 34 % F Lymphocytes/100 leukocytes in Blood by Automated count 2023-08-24 17:50:20 34 % F Lymphocytes/100 leukocytes in Blood by Automated count 2023-08-24 17:50:20 34 % F Basophils/100 leukocytes in Blood by Automated count 2023-08-24 17:50:18 0.9 % F Monocytes [#/volume] in Blood by Automated count 2023-08-24 17:50:18 529 Cell/uL F 0.0-1100.0 Basophils [#/volume] in Blood by Automated count 2023-08-24 17:50:18 69 Cell/uL F 0.0-400.0 Eosinophils [#/volume] in Blood by Automated count 2023-08-24 17:50:18 283 Cell/uL F 0.0-700.0 Neutrophils [#/volume] in Blood by Automated count 2023-08-24 17:50:18 4175 Cell/uL F 2000.0-8800. 0 Basophils/100 leukocytes in Blood by Automated count 2023-08-24 17:50:18 0.9 % F Monocytes [#/volume] in Blood by Automated count 2023-08-24 17:50:18 529 Cell/uL F 0.0-1100.0 Basophils [#/volume] in Blood by Automated count 2023-08-24 17:50:18 69 Cell/uL F 0.0-400.0 Eosinophils [#/volume] in Blood by Automated count 2023-08-24 17:50:18 283 Cell/uL F 0.0-700.0 Neutrophils [#/volume] in Blood by Automated count 2023-08-24 17:50:18 4175 Cell/uL F 2000.0-8800. 0 Basophils/100 leukocytes in Blood by Automated count 2023-08-24 17:50:18 0.9 % F Monocytes [#/volume] in Blood by Automated count 2023-08-24 17:50:18 529 Cell/uL F 0.0-1100.0 Basophils [#/volume] in Blood by Automated count 2023-08-24 17:50:18 69 Cell/uL F 0.0-400.0 Eosinophils [#/volume] in Blood by Automated count 2023-08-24 17:50:18 283 Cell/uL F 0.0-700.0 Neutrophils [#/volume] in Blood by Automated count 2023-08-24 17:50:18 4175 Cell/uL F 2000.0-8800. 0 Eosinophils/100 leukocytes in Blood by Automated count 2023-08-24 17:50:16 3.7 % F Monocytes/100 leukocytes in Blood by Automated count 2023-08-24 17:50:16 6.9 % F Neutrophils/100 leukocytes in Blood by Automated count 2023-08-24 17:50:16 54.5 % F Leukocytes [#/volume] in Blood by Automated count 2023-08-24 17:50:16 7.7 x 10^3 cells/uL F 4.0-11.0 Monocytes/100 leukocytes in Blood by Automated count 2023-08-24 17:50:16 6.9 % F Eosinophils/100 leukocytes in Blood by Automated count 2023-08-24 17:50:16 3.7 % F Neutrophils/100 leukocytes in Blood by Automated count 2023-08-24 17:50:16 54.5 % F Leukocytes [#/volume] in Blood by Automated count 2023-08-24 17:50:16 7.7 x 10^3 cells/uL F 4.0-11.0 Eosinophils/100 leukocytes in Blood by Automated count 2023-08-24 17:50:16 3.7 % F Monocytes/100 leukocytes in Blood by Automated count 2023-08-24 17:50:16 6.9 % F Neutrophils/100 leukocytes in Blood by Automated count 2023-08-24 17:50:16 54.5 % F Leukocytes [#/volume] in Blood by Automated count 2023-08-24 17:50:16 7.7 x 10^3 cells/uL F 4.0-11.0 Lymphocytes [#/volume] in Blood by Automated count 2023-08-24 17:50:14 2604 Cell/uL F 620.0-3660.0 Lymphocytes [#/volume] in Blood by Automated count 2023-08-24 17:50:14 2604 Cell/uL F 620.0-3660.0 Lymphocytes [#/volume] in Blood by Automated count 2023-08-24 17:50:14 2604 Cell/uL F 620.0-3660.0 Lymphocytes [#/volume] in Blood by Automated count 2023-07-21 06:31:17 F Recollect - Clot Detected Neutrophils/100 leukocytes in Blood by Automated count 2023-07-21 06:31:17 F Recollect - Clot Detected Basophils/100 leukocytes in Blood by Automated count 2023-07-21 06:31:17 F Recollect - Clot Detected Neutrophils [#/volume] in Blood by Automated count 2023-07-21 06:31:17 F Recollect - Clot Detected Monocytes/100 leukocytes in Blood by Automated count 2023-07-21 06:31:17 F Recollect - Clot Detected Eosinophils [#/volume] in Blood by Automated count 2023-07-21 06:31:17 F Recollect - Clot Detected Basophils [#/volume] in Blood by Automated count 2023-07-21 06:31:17 F Recollect - Clot Detected Eosinophils/100 leukocytes in Blood by Automated count 2023-07-21 06:31:17 F Recollect - Clot Detected Leukocytes [#/volume] in Blood by Automated count 2023-07-21 06:31:17 F Recollect - Clot Detected Lymphocytes/100 leukocytes in Blood by Automated count 2023-07-21 06:31:17 F Recollect - Clot Detected Monocytes [#/volume] in Blood by Automated count 2023-07-21 06:31:17 F Recollect - Clot Detected Lymphocytes [#/volume] in Blood by Automated count 2023-07-21 06:31:17 F Recollect - Clot Detected Eosinophils [#/volume] in Blood by Automated count 2023-07-21 06:31:17 F Recollect - Clot Detected Basophils/100 leukocytes in Blood by Automated count 2023-07-21 06:31:17 F Recollect - Clot Detected Neutrophils/100 leukocytes in Blood by Automated count 2023-07-21 06:31:17 F Recollect - Clot Detected Neutrophils [#/volume] in Blood by Automated count 2023-07-21 06:31:17 F Recollect - Clot Detected Monocytes/100 leukocytes in Blood by Automated count 2023-07-21 06:31:17 F Recollect - Clot Detected Lymphocytes/100 leukocytes in Blood by Automated count 2023-07-21 06:31:17 F Recollect - Clot Detected Monocytes [#/volume] in Blood by Automated count 2023-07-21 06:31:17 F Recollect - Clot Detected Eosinophils/100 leukocytes in Blood by Automated count 2023-07-21 06:31:17 F Recollect - Clot Detected Basophils [#/volume] in Blood by Automated count 2023-07-21 06:31:17 F Recollect - Clot Detected Leukocytes [#/volume] in Blood by Automated count 2023-07-21 06:31:17 F Recollect - Clot Detected Monocytes/100 leukocytes in Blood by Automated count 2023-06-22 14:59:40 5.5 % F Neutrophils/100 leukocytes in Blood by Automated count 2023-06-22 14:59:40 58.8 % F Eosinophils/100 leukocytes in Blood by Automated count 2023-06-22 14:59:40 2.9 % F Lymphocytes/100 leukocytes in Blood by Automated count 2023-06-22 14:59:40 32.6 % F Basophils/100 leukocytes in Blood by Automated count 2023-06-22 14:59:40 0.2 % F Monocytes [#/volume] in Blood by Automated count 2023-06-22 14:59:40 360 Cell/uL F 0.0-1100.0 Basophils [#/volume] in Blood by Automated count 2023-06-22 14:59:40 13 Cell/uL F 0.0-400.0 Eosinophils [#/volume] in Blood by Automated count 2023-06-22 14:59:40 190 Cell/uL F 0.0-700.0 Neutrophils [#/volume] in Blood by Automated count 2023-06-22 14:59:40 3846 Cell/uL F 2000.0-8800. 0 Leukocytes [#/volume] in Blood by Automated count 2023-06-22 14:59:40 6.5 x 10^3 cells/uL F 4.0-11.0 Lymphocytes [#/volume] in Blood by Automated count 2023-06-22 14:59:40 2132 Cell/uL F 620.0-3660.0 Basophils/100 leukocytes in Blood by Automated count 2023-06-22 14:59:40 0.2 % F Basophils [#/volume] in Blood by Automated count 2023-06-22 14:59:40 13 Cell/uL F 0.0-400.0 Neutrophils [#/volume] in Blood by Automated count 2023-06-22 14:59:40 3846 Cell/uL F 2000.0-8800. 0 Leukocytes [#/volume] in Blood by Automated count 2023-06-22 14:59:40 6.5 x 10^3 cells/uL F 4.0-11.0 Eosinophils/100 leukocytes in Blood by Automated count 2023-06-22 14:59:40 2.9 % F Neutrophils/100 leukocytes in Blood by Automated count 2023-06-22 14:59:40 58.8 % F Lymphocytes/100 leukocytes in Blood by Automated count 2023-06-22 14:59:40 32.6 % F Monocytes/100 leukocytes in Blood by Automated count 2023-06-22 14:59:40 5.5 % F Monocytes [#/volume] in Blood by Automated count 2023-06-22 14:59:40 360 Cell/uL F 0.0-1100.0 Eosinophils [#/volume] in Blood by Automated count 2023-06-22 14:59:40 190 Cell/uL F 0.0-700.0 Lymphocytes [#/volume] in Blood by Automated count 2023-06-22 14:59:40 2132 Cell/uL F 620.0-3660.0 Lymphocytes/100 leukocytes in Blood by Automated count 2023-06-22 14:59:40 32.6 % F Monocytes/100 leukocytes in Blood by Automated count 2023-06-22 14:59:40 5.5 % F Neutrophils/100 leukocytes in Blood by Automated count 2023-06-22 14:59:40 58.8 % F Basophils/100 leukocytes in Blood by Automated count 2023-06-22 14:59:40 0.2 % F Eosinophils/100 leukocytes in Blood by Automated count 2023-06-22 14:59:40 2.9 % F Monocytes [#/volume] in Blood by Automated count 2023-06-22 14:59:40 360 Cell/uL F 0.0-1100.0 Eosinophils [#/volume] in Blood by Automated count 2023-06-22 14:59:40 190 Cell/uL F 0.0-700.0 Basophils [#/volume] in Blood by Automated count 2023-06-22 14:59:40 13 Cell/uL F 0.0-400.0 Neutrophils [#/volume] in Blood by Automated count 2023-06-22 14:59:40 3846 Cell/uL F 2000.0-8800. 0 Leukocytes [#/volume] in Blood by Automated count 2023-06-22 14:59:40 6.5 x 10^3 cells/uL F 4.0-11.0 Lymphocytes [#/volume] in Blood by Automated count 2023-06-22 14:59:40 2132 Cell/uL F 620.0-3660.0 Lymphocytes/100 leukocytes in Blood by Automated count 2023-05-18 16:38:46 41.2 % F Monocytes [#/volume] in Blood by Automated count 2023-05-18 16:38:46 402 Cell/uL F 0.0-1100.0 Basophils [#/volume] in Blood by Automated count 2023-05-18 16:38:46 6 Cell/uL F 0.0-400.0 Eosinophils [#/volume] in Blood by Automated count 2023-05-18 16:38:46 325 Cell/uL F 0.0-700.0 Leukocytes [#/volume] in Blood by Automated count 2023-05-18 16:38:46 5.9 x 10^3 cells/uL F 4.0-11.0 Lymphocytes [#/volume] in Blood by Automated count 2023-05-18 16:38:46 2435 Cell/uL F 620.0-3660.0 Neutrophils/100 leukocytes in Blood by Automated count 2023-05-18 16:38:44 46.4 % F Monocytes/100 leukocytes in Blood by Automated count 2023-05-18 16:38:44 6.8 % F Basophils/100 leukocytes in Blood by Automated count 2023-05-18 16:38:44 0.1 % F Eosinophils/100 leukocytes in Blood by Automated count 2023-05-18 16:38:44 5.5 % F Neutrophils [#/volume] in Blood by Automated count 2023-05-18 16:38:44 2742 Cell/uL F 2000.0-8800. 0 Monocytes/100 leukocytes in Blood by Automated count 2023-04-20 23:18:24 6.6 % F Eosinophils/100 leukocytes in Blood by Automated count 2023-04-20 23:18:24 2.5 % F Basophils/100 leukocytes in Blood by Automated count 2023-04-20 23:18:24 0.3 % F Neutrophils/100 leukocytes in Blood by Automated count 2023-04-20 23:18:24 61.3 % F Monocytes [#/volume] in Blood by Automated count 2023-04-20 23:18:24 629 Cell/uL F 0.0-1100.0 Lymphocytes/100 leukocytes in Blood by Automated count 2023-04-20 23:18:24 29.2 % F Basophils [#/volume] in Blood by Automated count 2023-04-20 23:18:24 29 Cell/uL F 0.0-400.0 Eosinophils [#/volume] in Blood by Automated count 2023-04-20 23:18:24 238 Cell/uL F 0.0-700.0 Neutrophils [#/volume] in Blood by Automated count 2023-04-20 23:18:24 5842 Cell/uL F 2000.0-8800. 0 Leukocytes [#/volume] in Blood by Automated count 2023-04-20 23:18:24 9.5 x 10^3 cells/uL F 4.0-11.0 Lymphocytes [#/volume] in Blood by Automated count 2023-04-20 23:18:24 2783 Cell/uL F 620.0-3660.0 Lymphocytes/100 leukocytes in Blood by Automated count 2023-03-23 18:23:35 39.3 % F Monocytes/100 leukocytes in Blood by Automated count 2023-03-23 18:23:35 6 % F Eosinophils/100 leukocytes in Blood by Automated count 2023-03-23 18:23:35 3.4 % F Basophils/100 leukocytes in Blood by Automated count 2023-03-23 18:23:35 0.2 % F Neutrophils/100 leukocytes in Blood by Automated count 2023-03-23 18:23:35 51 % F Monocytes [#/volume] in Blood by Automated count 2023-03-23 18:23:35 439 Cell/uL F 0.0-1100.0 Basophils [#/volume] in Blood by Automated count 2023-03-23 18:23:35 15 Cell/uL F 0.0-400.0 Eosinophils [#/volume] in Blood by Automated count 2023-03-23 18:23:35 249 Cell/uL F 0.0-700.0 Neutrophils [#/volume] in Blood by Automated count 2023-03-23 18:23:35 3728 Cell/uL F 2000.0-8800. 0 Leukocytes [#/volume] in Blood by Automated count 2023-03-23 18:23:35 7.3 x 10^3 cells/uL F 4.0-11.0 Lymphocytes [#/volume] in Blood by Automated count 2023-03-23 18:23:35 2873 Cell/uL F 620.0-3660.0 Monocytes/100 leukocytes in Blood by Automated count 2023-03-23 18:23:35 6 % F Neutrophils/100 leukocytes in Blood by Automated count 2023-03-23 18:23:35 51 % F Lymphocytes/100 leukocytes in Blood by Automated count 2023-03-23 18:23:35 39.3 % F Eosinophils/100 leukocytes in Blood by Automated count 2023-03-23 18:23:35 3.4 % F Monocytes [#/volume] in Blood by Automated count 2023-03-23 18:23:35 439 Cell/uL F 0.0-1100.0 Basophils [#/volume] in Blood by Automated count 2023-03-23 18:23:35 15 Cell/uL F 0.0-400.0 Basophils/100 leukocytes in Blood by Automated count 2023-03-23 18:23:35 0.2 % F Eosinophils [#/volume] in Blood by Automated count 2023-03-23 18:23:35 249 Cell/uL F 0.0-700.0 Neutrophils [#/volume] in Blood by Automated count 2023-03-23 18:23:35 3728 Cell/uL F 2000.0-8800. 0 Leukocytes [#/volume] in Blood by Automated count 2023-03-23 18:23:35 7.3 x 10^3 cells/uL F 4.0-11.0 Lymphocytes [#/volume] in Blood by Automated count 2023-03-23 18:23:35 2873 Cell/uL F 620.0-3660.0 Eosinophils/100 leukocytes in Blood by Automated count 2023-02-23 13:11:37 5 % F Basophils/100 leukocytes in Blood by Automated count 2023-02-23 13:11:37 0.5 % F Lymphocytes/100 leukocytes in Blood by Automated count 2023-02-23 13:11:37 27.8 % F Neutrophils/100 leukocytes in Blood by Automated count 2023-02-23 13:11:37 60.7 % F Monocytes/100 leukocytes in Blood by Automated count 2023-02-23 13:11:37 6.1 % F Monocytes [#/volume] in Blood by Automated count 2023-02-23 13:11:37 434 Cell/uL F 0.0-1100.0 Basophils [#/volume] in Blood by Automated count 2023-02-23 13:11:37 36 Cell/uL F 0.0-400.0 Eosinophils [#/volume] in Blood by Automated count 2023-02-23 13:11:37 356 Cell/uL F 0.0-700.0 Neutrophils [#/volume] in Blood by Automated count 2023-02-23 13:11:37 4322 Cell/uL F 2000.0-8800. 0 Leukocytes [#/volume] in Blood by Automated count 2023-02-23 13:11:37 7.1 x 10^3 cells/uL F 4.0-11.0 Lymphocytes [#/volume] in Blood by Automated count 2023-02-23 13:11:37 1979 Cell/uL F 620.0-3660.0 Lymphocytes/100 leukocytes in Blood by Automated count 2023-01-19 20:01:14 35.4 % F Basophils/100 leukocytes in Blood by Automated count 2023-01-19 20:01:14 0.7 % F Monocytes/100 leukocytes in Blood by Automated count 2023-01-19 20:01:12 8.1 % F Eosinophils/100 leukocytes in Blood by Automated count 2023-01-19 20:01:12 4.8 % F Neutrophils/100 leukocytes in Blood by Automated count 2023-01-19 20:01:12 50.9 % F Monocytes [#/volume] in Blood by Automated count 2023-01-19 20:01:12 414 Cell/uL F 0.0-1100.0 Basophils [#/volume] in Blood by Automated count 2023-01-19 20:01:12 36 Cell/uL F 0.0-400.0 Eosinophils [#/volume] in Blood by Automated count 2023-01-19 20:01:12 245 Cell/uL F 0.0-700.0 Neutrophils [#/volume] in Blood by Automated count 2023-01-19 20:01:12 2601 Cell/uL F 2000.0-8800. 0 Leukocytes [#/volume] in Blood by Automated count 2023-01-19 20:01:12 5.1 x 10^3 cells/uL F 4.0-11.0 Lymphocytes [#/volume] in Blood by Automated count 2023-01-19 20:01:12 1809 Cell/uL F 620.0-3660.0 Lymphocytes/100 leukocytes in Blood by Automated count 2022-12-22 18:25:12 32.7 % F Eosinophils/100 leukocytes in Blood by Automated count 2022-12-22 18:25:12 5.5 % F Basophils/100 leukocytes in Blood by Automated count 2022-12-22 18:25:12 0.5 % F Monocytes/100 leukocytes in Blood by Automated count 2022-12-22 18:25:12 5.2 % F Neutrophils/100 leukocytes in Blood by Automated count 2022-12-22 18:25:12 56.1 % F Basophils [#/volume] in Blood by Automated count 2022-12-22 18:25:12 38 Cell/uL F 0.0-400.0 Eosinophils [#/volume] in Blood by Automated count 2022-12-22 18:25:12 422 Cell/uL F 0.0-700.0 Lymphocytes [#/volume] in Blood by Automated count 2022-12-22 18:25:12 2508 Cell/uL F 620.0-3660.0 Eosinophils [#/volume] in Blood by Automated count 2022-12-22 18:25:12 422 Cell/uL F 0.0-700.0 Monocytes/100 leukocytes in Blood by Automated count 2022-12-22 18:25:12 5.2 % F Lymphocytes [#/volume] in Blood by Automated count 2022-12-22 18:25:12 2508 Cell/uL F 620.0-3660.0 Lymphocytes/100 leukocytes in Blood by Automated count 2022-12-22 18:25:12 32.7 % F Eosinophils/100 leukocytes in Blood by Automated count 2022-12-22 18:25:12 5.5 % F Neutrophils/100 leukocytes in Blood by Automated count 2022-12-22 18:25:12 56.1 % F Basophils/100 leukocytes in Blood by Automated count 2022-12-22 18:25:12 0.5 % F Basophils [#/volume] in Blood by Automated count 2022-12-22 18:25:12 38 Cell/uL F 0.0-400.0 Lymphocytes/100 leukocytes in Blood by Automated count 2022-12-22 18:25:12 32.7 % F Eosinophils/100 leukocytes in Blood by Automated count 2022-12-22 18:25:12 5.5 % F Monocytes/100 leukocytes in Blood by Automated count 2022-12-22 18:25:12 5.2 % F Basophils/100 leukocytes in Blood by Automated count 2022-12-22 18:25:12 0.5 % F Neutrophils/100 leukocytes in Blood by Automated count 2022-12-22 18:25:12 56.1 % F Basophils [#/volume] in Blood by Automated count 2022-12-22 18:25:12 38 Cell/uL F 0.0-400.0 Eosinophils [#/volume] in Blood by Automated count 2022-12-22 18:25:12 422 Cell/uL F 0.0-700.0 Lymphocytes [#/volume] in Blood by Automated count 2022-12-22 18:25:12 2508 Cell/uL F 620.0-3660.0 Monocytes [#/volume] in Blood by Automated count 2022-12-22 18:25:10 399 Cell/uL F 0.0-1100.0 Neutrophils [#/volume] in Blood by Automated count 2022-12-22 18:25:10 4303 Cell/uL F 2000.0-8800. 0 Leukocytes [#/volume] in Blood by Automated count 2022-12-22 18:25:10 7.7 x 10^3 cells/uL F 4.0-11.0 Leukocytes [#/volume] in Blood by Automated count 2022-12-22 18:25:10 7.7 x 10^3 cells/uL F 4.0-11.0 Monocytes [#/volume] in Blood by Automated count 2022-12-22 18:25:10 399 Cell/uL F 0.0-1100.0 Neutrophils [#/volume] in Blood by Automated count 2022-12-22 18:25:10 4303 Cell/uL F 2000.0-8800. 0 Monocytes [#/volume] in Blood by Automated count 2022-12-22 18:25:10 399 Cell/uL F 0.0-1100.0 Neutrophils [#/volume] in Blood by Automated count 2022-12-22 18:25:10 4303 Cell/uL F 2000.0-8800. 0 Leukocytes [#/volume] in Blood by Automated count 2022-12-22 18:25:10 7.7 x 10^3 cells/uL F 4.0-11.0 Lymphocytes/100 leukocytes in Blood by Automated count 2022-05-05 15:51:56 25.2 % F Eosinophils/100 leukocytes in Blood by Automated count 2022-05-05 15:51:56 5.4 % F Basophils/100 leukocytes in Blood by Automated count 2022-05-05 15:51:56 0.4 % F Lymphocytes [#/volume] in Blood by Automated count 2022-05-05 15:51:56 2114.28 Cell/uL F 1100.0-4800. 0 Neutrophils [#/volume] in Blood by Automated count 2022-05-05 15:51:56 5285.7 Cell/uL F 2000.0-8800. 0 Leukocytes [#/volume] in Blood by Automated count 2022-05-05 15:51:56 8.4 x 10^3 cells/uL F 4.5-11.0 Lymphocytes/100 leukocytes in Blood by Automated count 2022-05-05 15:51:56 25.2 % F Eosinophils/100 leukocytes in Blood by Automated count 2022-05-05 15:51:56 5.4 % F Basophils/100 leukocytes in Blood by Automated count 2022-05-05 15:51:56 0.4 % F Lymphocytes [#/volume] in Blood by Automated count 2022-05-05 15:51:56 2114.28 Cell/uL F 1100.0-4800. 0 Neutrophils [#/volume] in Blood by Automated count 2022-05-05 15:51:56 5285.7 Cell/uL F 2000.0-8800. 0 Leukocytes [#/volume] in Blood by Automated count 2022-05-05 15:51:56 8.4 x 10^3 cells/uL F 4.5-11.0 Neutrophils/100 leukocytes in Blood by Automated count 2022-05-05 15:51:55 63 % F Monocytes/100 leukocytes in Blood by Automated count 2022-05-05 15:51:55 6.1 % F Monocytes [#/volume] in Blood by Automated count 2022-05-05 15:51:55 511.79 Cell/uL F 0.0-1100.0 Basophils [#/volume] in Blood by Automated count 2022-05-05 15:51:55 33.56 Cell/uL F 0.0-400.0 Eosinophils [#/volume] in Blood by Automated count 2022-05-05 15:51:55 453.06 Cell/uL F 0.0-700.0 Monocytes/100 leukocytes in Blood by Automated count 2022-05-05 15:51:55 6.1 % F Neutrophils/100 leukocytes in Blood by Automated count 2022-05-05 15:51:55 63 % F Monocytes [#/volume] in Blood by Automated count 2022-05-05 15:51:55 511.79 Cell/uL F 0.0-1100.0 Basophils [#/volume] in Blood by Automated count 2022-05-05 15:51:55 33.56 Cell/uL F 0.0-400.0 Eosinophils [#/volume] in Blood by Automated count 2022-05-05 15:51:55 453.06 Cell/uL F 0.0-700.0 MineralBone Disorder Description Draw Date Result/Unit Status Ref Range Result Comments Alkaline phosphatase [Enzymatic activity/volume] in Serum or Plasma 2025-03-20 13:19:07 90 U/L F 46.0-116.0 Alkaline phosphatase [Enzymatic activity/volume] in Serum or Plasma 2025-03-20 13:19:07 90 U/L F 46.0-116.0 CA CORRECTED 2025-03-07 05:36:30 9.5 mg/dL F CA CORRECTED 2025-03-07 05:36:30 9.5 mg/dL F CA CORRECTED 2025-03-07 05:36:30 9.5 mg/dL F CA CORRECTED 2025-03-07 05:36:30 9.5 mg/dL F CA/PHOS PRODUCT 2025-03-07 05:33:36 47.8 Calc F 21.0-53.0 CA*PO4 CORRCTD 2025-03-07 05:33:36 49.5 Calc F 21.0-53.0 CA/PHOS PRODUCT 2025-03-07 05:33:36 47.8 Calc F 21.0-53.0 CA*PO4 CORRCTD 2025-03-07 05:33:36 49.5 Calc F 21.0-53.0 CA/PHOS PRODUCT 2025-03-07 05:33:36 47.8 Calc F 21.0-53.0 CA*PO4 CORRCTD 2025-03-07 05:33:36 49.5 Calc F 21.0-53.0 CA/PHOS PRODUCT 2025-03-07 05:33:36 47.8 Calc F 21.0-53.0 CA*PO4 CORRCTD 2025-03-07 05:33:36 49.5 Calc F 21.0-53.0 Calcium [Mass/volume] in Serum or Plasma 2025-03-07 05:26:31 9.2 mg/dL F 8.7-10.4 Calcium [Mass/volume] in Serum or Plasma 2025-03-07 05:26:31 9.2 mg/dL F 8.7-10.4 Calcium [Mass/volume] in Serum or Plasma 2025-03-07 05:26:31 9.2 mg/dL F 8.7-10.4 Calcium [Mass/volume] in Serum or Plasma 2025-03-07 05:26:31 9.2 mg/dL F 8.7-10.4 Parathyrin.intact [Mass/volume] in Serum or Plasma 2025-03-06 19:57:28 212 pg/mL F 18.0-80.0 Parathyrin.intact [Mass/volume] in Serum or Plasma 2025-03-06 19:57:28 212 pg/mL F 18.0-80.0 Parathyrin.intact [Mass/volume] in Serum or Plasma 2025-03-06 19:57:28 212 pg/mL F 18.0-80.0 Parathyrin.intact [Mass/volume] in Serum or Plasma 2025-03-06 19:57:28 212 pg/mL F 18.0-80.0 Phosphate [Mass/volume] in Serum or Plasma 2025-03-06 18:13:23 5.2 mg/dL F 2.4-5.1 Phosphate [Mass/volume] in Serum or Plasma 2025-03-06 18:13:23 5.2 mg/dL F 2.4-5.1 Phosphate [Mass/volume] in Serum or Plasma 2025-03-06 18:13:23 5.2 mg/dL F 2.4-5.1 Phosphate [Mass/volume] in Serum or Plasma 2025-03-06 18:13:23 5.2 mg/dL F 2.4-5.1 Alkaline phosphatase [Enzymatic activity/volume] in Serum or Plasma 2025-02-20 18:26:12 81 U/L F 46.0-116.0 Alkaline phosphatase [Enzymatic activity/volume] in Serum or Plasma 2025-02-20 18:26:12 81 U/L F 46.0-116.0 Alkaline phosphatase [Enzymatic activity/volume] in Serum or Plasma 2025-02-20 18:26:12 81 U/L F 46.0-116.0 CA CORRECTED 2025-02-07 08:28:20 9.4 mg/dL F CA CORRECTED 2025-02-07 08:28:20 9.4 mg/dL F CA CORRECTED 2025-02-07 08:28:20 9.4 mg/dL F CA*PO4 CORRCTD 2025-02-07 08:26:52 46.3 Calc F 21.0-53.0 CA/PHOS PRODUCT 2025-02-07 08:26:52 45.1 Calc F 21.0-53.0 CA/PHOS PRODUCT 2025-02-07 08:26:52 45.1 Calc F 21.0-53.0 CA*PO4 CORRCTD 2025-02-07 08:26:52 46.3 Calc F 21.0-53.0 CA/PHOS PRODUCT 2025-02-07 08:26:52 45.1 Calc F 21.0-53.0 CA*PO4 CORRCTD 2025-02-07 08:26:52 46.3 Calc F 21.0-53.0 Calcium [Mass/volume] in Serum or Plasma 2025-02-07 07:44:38 9.2 mg/dL F 8.7-10.4 Calcium [Mass/volume] in Serum or Plasma 2025-02-07 07:44:38 9.2 mg/dL F 8.7-10.4 Calcium [Mass/volume] in Serum or Plasma 2025-02-07 07:44:38 9.2 mg/dL F 8.7-10.4 Phosphate [Mass/volume] in Serum or Plasma 2025-02-07 03:34:13 4.9 mg/dL F 2.4-5.1 Phosphate [Mass/volume] in Serum or Plasma 2025-02-07 03:34:13 4.9 mg/dL F 2.4-5.1 Phosphate [Mass/volume] in Serum or Plasma 2025-02-07 03:34:13 4.9 mg/dL F 2.4-5.1 Parathyrin.intact [Mass/volume] in Serum or Plasma 2025-02-06 16:58:16 147 pg/mL F 18.0-80.0 Parathyrin.intact [Mass/volume] in Serum or Plasma 2025-02-06 16:58:16 147 pg/mL F 18.0-80.0 Parathyrin.intact [Mass/volume] in Serum or Plasma 2025-02-06 16:58:16 147 pg/mL F 18.0-80.0 Alkaline phosphatase [Enzymatic activity/volume] in Serum or Plasma 2025-01-28 16:05:12 68 U/L F 46.0-116.0 CA CORRECTED 2025-01-17 05:07:01 8.8 mg/dL F CA CORRECTED 2025-01-17 05:07:01 8.8 mg/dL F CA CORRECTED 2025-01-17 05:07:01 8.8 mg/dL F CA CORRECTED 2025-01-17 05:07:01 8.8 mg/dL F CA CORRECTED 2025-01-17 05:07:01 8.8 mg/dL F CA/PHOS PRODUCT 2025-01-17 05:04:08 51 Calc F 21.0-53.0 CA*PO4 CORRCTD 2025-01-17 05:04:08 51 Calc F 21.0-53.0 CA/PHOS PRODUCT 2025-01-17 05:04:08 51 Calc F 21.0-53.0 CA*PO4 CORRCTD 2025-01-17 05:04:08 51 Calc F 21.0-53.0 CA/PHOS PRODUCT 2025-01-17 05:04:08 51 Calc F 21.0-53.0 CA*PO4 CORRCTD 2025-01-17 05:04:08 51 Calc F 21.0-53.0 CA/PHOS PRODUCT 2025-01-17 05:04:08 51 Calc F 21.0-53.0 CA*PO4 CORRCTD 2025-01-17 05:04:08 51 Calc F 21.0-53.0 CA/PHOS PRODUCT 2025-01-17 05:04:08 51 Calc F 21.0-53.0 CA*PO4 CORRCTD 2025-01-17 05:04:08 51 Calc F 21.0-53.0 Calcium [Mass/volume] in Serum or Plasma 2025-01-17 04:55:52 8.8 mg/dL F 8.7-10.4 Calcium [Mass/volume] in Serum or Plasma 2025-01-17 04:55:52 8.8 mg/dL F 8.7-10.4 Calcium [Mass/volume] in Serum or Plasma 2025-01-17 04:55:52 8.8 mg/dL F 8.7-10.4 Calcium [Mass/volume] in Serum or Plasma 2025-01-17 04:55:52 8.8 mg/dL F 8.7-10.4 Calcium [Mass/volume] in Serum or Plasma 2025-01-17 04:55:52 8.8 mg/dL F 8.7-10.4 Parathyrin.intact [Mass/volume] in Serum or Plasma 2025-01-16 14:28:17 332 pg/mL F 18.0-80.0 Parathyrin.intact [Mass/volume] in Serum or Plasma 2025-01-16 14:28:17 332 pg/mL F 18.0-80.0 Parathyrin.intact [Mass/volume] in Serum or Plasma 2025-01-16 14:28:17 332 pg/mL F 18.0-80.0 Parathyrin.intact [Mass/volume] in Serum or Plasma 2025-01-16 14:28:17 332 pg/mL F 18.0-80.0 Parathyrin.intact [Mass/volume] in Serum or Plasma 2025-01-16 14:28:17 332 pg/mL F 18.0-80.0 Phosphate [Mass/volume] in Serum or Plasma 2025-01-16 13:39:09 5.8 mg/dL F 2.4-5.1 Phosphate [Mass/volume] in Serum or Plasma 2025-01-16 13:39:09 5.8 mg/dL F 2.4-5.1 Phosphate [Mass/volume] in Serum or Plasma 2025-01-16 13:39:09 5.8 mg/dL F 2.4-5.1 Phosphate [Mass/volume] in Serum or Plasma 2025-01-16 13:39:09 5.8 mg/dL F 2.4-5.1 Phosphate [Mass/volume] in Serum or Plasma 2025-01-16 13:39:09 5.8 mg/dL F 2.4-5.1 Alkaline phosphatase [Enzymatic activity/volume] in Serum or Plasma 2024-12-19 14:06:19 57 U/L F 46.0-116.0 Alkaline phosphatase [Enzymatic activity/volume] in Serum or Plasma 2024-12-19 14:06:19 57 U/L F 46.0-116.0 Alkaline phosphatase [Enzymatic activity/volume] in Serum or Plasma 2024-12-19 14:06:19 57 U/L F 46.0-116.0 CA CORRECTED 2024-12-06 02:27:26 9 mg/dL F CA CORRECTED 2024-12-06 02:27:26 9 mg/dL F CA CORRECTED 2024-12-06 02:27:26 9 mg/dL F CA CORRECTED 2024-12-06 02:27:26 9 mg/dL F CA CORRECTED 2024-12-06 02:27:26 9 mg/dL F CA/PHOS PRODUCT 2024-12-06 02:26:13 48.4 Calc F 21.0-53.0 CA*PO4 CORRCTD 2024-12-06 02:26:13 49.3 Calc F 21.0-53.0 CA*PO4 CORRCTD 2024-12-06 02:26:13 49.3 Calc F 21.0-53.0 CA/PHOS PRODUCT 2024-12-06 02:26:13 48.4 Calc F 21.0-53.0 CA*PO4 CORRCTD 2024-12-06 02:26:13 49.3 Calc F 21.0-53.0 CA/PHOS PRODUCT 2024-12-06 02:26:13 48.4 Calc F 21.0-53.0 CA*PO4 CORRCTD 2024-12-06 02:26:13 49.3 Calc F 21.0-53.0 CA/PHOS PRODUCT 2024-12-06 02:26:13 48.4 Calc F 21.0-53.0 CA/PHOS PRODUCT 2024-12-06 02:26:13 48.4 Calc F 21.0-53.0 CA*PO4 CORRCTD 2024-12-06 02:26:13 49.3 Calc F 21.0-53.0 Calcium [Mass/volume] in Serum or Plasma 2024-12-06 02:25:22 8.8 mg/dL F 8.7-10.4 Calcium [Mass/volume] in Serum or Plasma 2024-12-06 02:25:22 8.8 mg/dL F 8.7-10.4 Calcium [Mass/volume] in Serum or Plasma 2024-12-06 02:25:22 8.8 mg/dL F 8.7-10.4 Calcium [Mass/volume] in Serum or Plasma 2024-12-06 02:25:22 8.8 mg/dL F 8.7-10.4 Calcium [Mass/volume] in Serum or Plasma 2024-12-06 02:25:22 8.8 mg/dL F 8.7-10.4 Phosphate [Mass/volume] in Serum or Plasma 2024-12-05 20:36:17 5.5 mg/dL F 2.4-5.1 Phosphate [Mass/volume] in Serum or Plasma 2024-12-05 20:36:17 5.5 mg/dL F 2.4-5.1 Phosphate [Mass/volume] in Serum or Plasma 2024-12-05 20:36:17 5.5 mg/dL F 2.4-5.1 Phosphate [Mass/volume] in Serum or Plasma 2024-12-05 20:36:17 5.5 mg/dL F 2.4-5.1 Phosphate [Mass/volume] in Serum or Plasma 2024-12-05 20:36:17 5.5 mg/dL F 2.4-5.1 Parathyrin.intact [Mass/volume] in Serum or Plasma 2024-12-05 18:35:14 229 pg/mL F 18.0-80.0 Parathyrin.intact [Mass/volume] in Serum or Plasma 2024-12-05 18:35:14 229 pg/mL F 18.0-80.0 Parathyrin.intact [Mass/volume] in Serum or Plasma 2024-12-05 18:35:14 229 pg/mL F 18.0-80.0 Parathyrin.intact [Mass/volume] in Serum or Plasma 2024-12-05 18:35:14 229 pg/mL F 18.0-80.0 Parathyrin.intact [Mass/volume] in Serum or Plasma 2024-12-05 18:35:14 229 pg/mL F 18.0-80.0 CA CORRECTED 2024-11-25 15:05:21 9 mg/dL F CA CORRECTED 2024-11-25 15:05:21 9 mg/dL F CA CORRECTED 2024-11-25 15:05:21 9 mg/dL F Parathyrin.intact [Mass/volume] in Serum or Plasma 2024-11-25 15:03:53 416 pg/mL F 18.0-80.0 CANCELED - TEST CANCELED,This test utilizes Biotin (Vitamin B7) as one of it's reagents. Testing may be interfered with in patients consuming Biotin supplements. Please factor this when reviewing results. METHODOLOGY: SIEMENSReference range changed as of July. Parathyrin.intact [Mass/volume] in Serum or Plasma 2024-11-25 15:03:53 416 pg/mL K 18.0-80.0 This test utiliz es Biotin (Vitamin B7) as one of it's reagents. Testing may be interfered with in patients consuming Biotin supplements. Please factor this when reviewing results. METHODOLOGY: SIEMENSReference range changed as of July. Parathyrin.intact [Mass/volume] in Serum or Plasma 2024-11-25 15:03:53 416 pg/mL F 18.0-80.0 CA*PO4 CORRCTD 2024-11-25 15:02:06 34.2 Calc F 21.0-53.0 CA/PHOS PRODUCT 2024-11-25 15:02:06 34.2 Calc F 21.0-53.0 CA/PHOS PRODUCT 2024-11-25 15:02:06 34.2 Calc F 21.0-53.0 CA*PO4 CORRCTD 2024-11-25 15:02:06 34.2 Calc F 21.0-53.0 CA*PO4 CORRCTD 2024-11-25 15:02:06 34.2 Calc F 21.0-53.0 CA/PHOS PRODUCT 2024-11-25 15:02:06 34.2 Calc F 21.0-53.0 Parathyrin.intact [Mass/volume] in Serum or Plasma 2024-11-20 20:27:14 248 pg/mL F 18.0-80.0 Parathyrin.intact [Mass/volume] in Serum or Plasma 2024-11-20 20:27:14 248 pg/mL F 18.0-80.0 CA CORRECTED 2024-11-08 07:48:24 9.3 mg/dL F CA CORRECTED 2024-11-08 07:48:24 9.3 mg/dL F CA CORRECTED 2024-11-08 07:48:24 9.3 mg/dL F CA/PHOS PRODUCT 2024-11-08 07:45:01 35 Calc F 21.0-53.0 CA*PO4 CORRCTD 2024-11-08 07:45:01 35.3 Calc F 21.0-53.0 CA/PHOS PRODUCT 2024-11-08 07:45:01 35 Calc F 21.0-53.0 CA*PO4 CORRCTD 2024-11-08 07:45:01 35.3 Calc F 21.0-53.0 CA*PO4 CORRCTD 2024-11-08 07:45:01 35.3 Calc F 21.0-53.0 CA/PHOS PRODUCT 2024-11-08 07:45:01 35 Calc F 21.0-53.0 Phosphate [Mass/volume] in Serum or Plasma 2024-11-08 07:17:40 3.8 mg/dL F 2.4-5.1 Calcium [Mass/volume] in Serum or Plasma 2024-11-08 07:17:40 9.2 mg/dL F 8.7-10.4 Phosphate [Mass/volume] in Serum or Plasma 2024-11-08 07:17:40 3.8 mg/dL F 2.4-5.1 Calcium [Mass/volume] in Serum or Plasma 2024-11-08 07:17:40 9.2 mg/dL F 8.7-10.4 Phosphate [Mass/volume] in Serum or Plasma 2024-11-08 07:17:40 3.8 mg/dL F 2.4-5.1 Calcium [Mass/volume] in Serum or Plasma 2024-11-08 07:17:40 9.2 mg/dL F 8.7-10.4 Alkaline phosphatase [Enzymatic activity/volume] in Serum or Plasma 2024-11-07 22:54:27 59 U/L F 46.0-116.0 Alkaline phosphatase [Enzymatic activity/volume] in Serum or Plasma 2024-11-07 22:54:27 59 U/L F 46.0-116.0 Alkaline phosphatase [Enzymatic activity/volume] in Serum or Plasma 2024-11-07 22:54:27 59 U/L F 46.0-116.0 Parathyrin.intact [Mass/volume] in Serum or Plasma 2024-11-06 20:46:30 F CANCELED - TEST CANCELED Parathyrin.intact [Mass/volume] in Serum or Plasma 2024-11-06 20:46:30 F CANCELED - TEST CANCELED Parathyrin.intact [Mass/volume] in Serum or Plasma 2024-11-06 20:46:30 F CANCELED - TEST CANCELED,CANCELED - TEST CANCELED Parathyrin.intact [Mass/volume] in Serum or Plasma 2024-10-29 15:57:40 F This test utiliz es Biotin (Vitamin B7) as one of it's reagents. Testing may be interfered with in patients consuming Biotin supplements. Please factor this when reviewing results. METHODOLOGY: SIEMENSReference range changed as of July. CA CORRECTED 2024-10-11 06:30:14 9 mg/dL F CA/PHOS PRODUCT 2024-10-11 06:28:14 34.2 Calc F 21.0-53.0 CA*PO4 CORRCTD 2024-10-11 06:28:14 34.2 Calc F 21.0-53.0 Phosphate [Mass/volume] in Serum or Plasma 2024-10-11 06:14:11 3.8 mg/dL F 2.4-5.1 Calcium [Mass/volume] in Serum or Plasma 2024-10-11 06:14:11 9 mg/dL F 8.7-10.4 Phosphate [Mass/volume] in Serum or Plasma 2024-10-11 06:14:11 3.8 mg/dL F 2.4-5.1 Calcium [Mass/volume] in Serum or Plasma 2024-10-11 06:14:11 9 mg/dL F 8.7-10.4 Phosphate [Mass/volume] in Serum or Plasma 2024-10-11 06:14:11 3.8 mg/dL F 2.4-5.1 Calcium [Mass/volume] in Serum or Plasma 2024-10-11 06:14:11 9 mg/dL F 8.7-10.4 Phosphate [Mass/volume] in Serum or Plasma 2024-10-11 06:14:11 3.8 mg/dL F 2.4-5.1 Calcium [Mass/volume] in Serum or Plasma 2024-10-11 06:14:11 9 mg/dL F 8.7-10.4 Alkaline phosphatase [Enzymatic activity/volume] in Serum or Plasma 2024-09-19 16:59:24 53 U/L F 46.0-116.0 CA CORRECTED 2024-09-06 10:00:07 9.1 mg/dL F CA CORRECTED 2024-09-06 10:00:07 9.1 mg/dL F CA/PHOS PRODUCT 2024-09-06 09:56:56 52.8 Calc F 21.0-53.0 CA*PO4 CORRCTD 2024-09-06 09:56:56 52.8 Calc F 21.0-53.0 CA*PO4 CORRCTD 2024-09-06 09:56:56 52.8 Calc F 21.0-53.0 CA/PHOS PRODUCT 2024-09-06 09:56:56 52.8 Calc F 21.0-53.0 Phosphate [Mass/volume] in Serum or Plasma 2024-09-06 07:20:45 5.8 mg/dL F 2.4-5.1 Phosphate [Mass/volume] in Serum or Plasma 2024-09-06 07:20:45 5.8 mg/dL F 2.4-5.1 Calcium [Mass/volume] in Serum or Plasma 2024-09-06 07:19:48 9.1 mg/dL F 8.7-10.4 Calcium [Mass/volume] in Serum or Plasma 2024-09-06 07:19:48 9.1 mg/dL F 8.7-10.4 Parathyrin.intact [Mass/volume] in Serum or Plasma 2024-09-05 21:57:24 432 pg/mL F 18.0-80.0 Parathyrin.intact [Mass/volume] in Serum or Plasma 2024-09-05 21:57:24 432 pg/mL F 18.0-80.0 Alkaline phosphatase [Enzymatic activity/volume] in Serum or Plasma 2024-08-29 16:23:21 50 U/L F 46.0-116.0 Alkaline phosphatase [Enzymatic activity/volume] in Serum or Plasma 2024-08-29 16:23:21 50 U/L F 46.0-116.0 Alkaline phosphatase [Enzymatic activity/volume] in Serum or Plasma 2024-08-22 21:55:14 58 U/L F 46.0-116.0 Alkaline phosphatase [Enzymatic activity/volume] in Serum or Plasma 2024-08-22 21:55:14 58 U/L F 46.0-116.0 Alkaline phosphatase [Enzymatic activity/volume] in Serum or Plasma 2024-08-22 21:55:14 58 U/L F 46.0-116.0 CA CORRECTED 2024-08-09 12:17:24 9.1 mg/dL F CA CORRECTED 2024-08-09 12:17:24 9.1 mg/dL F CA/PHOS PRODUCT 2024-08-09 12:15:13 61 Calc F 21.0-53.0 CA*PO4 CORRCTD 2024-08-09 12:15:13 61 Calc F 21.0-53.0 CA*PO4 CORRCTD 2024-08-09 12:15:13 61 Calc F 21.0-53.0 CA/PHOS PRODUCT 2024-08-09 12:15:13 61 Calc F 21.0-53.0 Phosphate [Mass/volume] in Serum or Plasma 2024-08-09 08:16:15 6.7 mg/dL F 2.4-5.1 Calcium [Mass/volume] in Serum or Plasma 2024-08-09 08:16:15 9.1 mg/dL F 8.7-10.4 Phosphate [Mass/volume] in Serum or Plasma 2024-08-09 08:16:15 6.7 mg/dL F 2.4-5.1 Calcium [Mass/volume] in Serum or Plasma 2024-08-09 08:16:15 9.1 mg/dL F 8.7-10.4 Parathyrin.intact [Mass/volume] in Serum or Plasma 2024-08-09 01:31:28 436 pg/mL F 18.0-80.0 Parathyrin.intact [Mass/volume] in Serum or Plasma 2024-08-09 01:31:28 436 pg/mL F 18.0-80.0 25-Hydroxyvitamin D3+25-Hydroxyvitami n D2 [Mass/volume] in Serum or Plasma 2024-05-24 08:20:22 49.5 ng/mL F 25-Hydroxyvitamin D3+25-Hydroxyvitami n D2 [Mass/volume] in Serum or Plasma 2024-05-24 08:20:22 49.5 ng/mL F 25-Hydroxyvitamin D3+25-Hydroxyvitami n D2 [Mass/volume] in Serum or Plasma 2024-05-24 08:20:22 49.5 ng/mL F Alkaline phosphatase [Enzymatic activity/volume] in Serum or Plasma 2024-05-23 15:46:24 55 U/L F 46.0-116.0 Alkaline phosphatase [Enzymatic activity/volume] in Serum or Plasma 2024-05-23 15:46:24 55 U/L F 46.0-116.0 Alkaline phosphatase [Enzymatic activity/volume] in Serum or Plasma 2024-05-23 15:46:24 55 U/L F 46.0-116.0 Phosphate [Mass/volume] in Serum or Plasma 2024-05-23 15:46:22 5.3 mg/dL F 2.4-5.1 Phosphate [Mass/volume] in Serum or Plasma 2024-05-23 15:46:22 5.3 mg/dL F 2.4-5.1 Phosphate [Mass/volume] in Serum or Plasma 2024-05-23 15:46:22 5.3 mg/dL F 2.4-5.1 Phosphate [Mass/volume] in Serum or Plasma 2023-09-21 15:50:35 6.3 mg/dL F 2.4-5.1 Alkaline phosphatase [Enzymatic activity/volume] in Serum or Plasma 2023-09-21 15:50:35 52 U/L F 46.0-116.0 Alkaline phosphatase [Enzymatic activity/volume] in Serum or Plasma 2023-08-24 16:20:03 57 U/L F 46.0-116.0 Alkaline phosphatase [Enzymatic activity/volume] in Serum or Plasma 2023-08-24 16:20:03 57 U/L F 46.0-116.0 Alkaline phosphatase [Enzymatic activity/volume] in Serum or Plasma 2023-08-24 16:20:03 57 U/L F 46.0-116.0 Alkaline phosphatase [Enzymatic activity/volume] in Serum or Plasma 2023-07-20 16:08:42 112 U/L F 46.0-116.0 Alkaline phosphatase [Enzymatic activity/volume] in Serum or Plasma 2023-07-20 16:08:42 112 U/L F 46.0-116.0 Phosphate [Mass/volume] in Serum or Plasma 2023-07-20 16:08:38 5 mg/dL F 2.4-5.1 Phosphate [Mass/volume] in Serum or Plasma 2023-07-20 16:08:38 5 mg/dL F 2.4-5.1 Phosphate [Mass/volume] in Serum or Plasma 2023-06-22 15:18:32 7.9 mg/dL F 2.4-5.1 Alkaline phosphatase [Enzymatic activity/volume] in Serum or Plasma 2023-06-22 15:18:32 46 U/L F 46.0-116.0 Phosphate [Mass/volume] in Serum or Plasma 2023-06-22 15:18:32 7.9 mg/dL F 2.4-5.1 Alkaline phosphatase [Enzymatic activity/volume] in Serum or Plasma 2023-06-22 15:18:32 46 U/L F 46.0-116.0 Phosphate [Mass/volume] in Serum or Plasma 2023-06-22 15:18:32 7.9 mg/dL F 2.4-5.1 Alkaline phosphatase [Enzymatic activity/volume] in Serum or Plasma 2023-06-22 15:18:32 46 U/L F 46.0-116.0 CA CORRECTED 2023-05-19 05:27:36 8.7 mg/dL F CA/PHOS PRODUCT 2023-05-19 05:25:06 92.9 Calc F 21.0-53.0 CA*PO4 CORRCTD 2023-05-19 05:25:06 94 Calc F 21.0-53.0 Calcium [Mass/volume] in Serum or Plasma 2023-05-19 05:16:00 8.6 mg/dL F 8.7-10.4 Parathyrin.intact [Mass/volume] in Serum or Plasma 2023-05-19 03:16:30 402 pg/mL F 18.0-80.0 25-Hydroxyvitamin D3+25-Hydroxyvitami n D2 [Mass/volume] in Serum or Plasma 2023-05-19 03:16:22 61.1 ng/mL F Phosphate [Mass/volume] in Serum or Plasma 2023-05-18 20:21:37 10.8 mg/dL F 2.4-5.1 Alkaline phosphatase [Enzymatic activity/volume] in Serum or Plasma 2023-05-18 20:21:37 38 U/L F 46.0-116.0 Phosphate [Mass/volume] in Serum or Plasma 2023-04-20 19:35:36 6.6 mg/dL F 2.4-5.1 Alkaline phosphatase [Enzymatic activity/volume] in Serum or Plasma 2023-04-20 19:35:36 63 U/L F 46.0-116.0 Phosphate [Mass/volume] in Serum or Plasma 2023-03-23 19:55:35 8.9 mg/dL F 2.4-5.1 Alkaline phosphatase [Enzymatic activity/volume] in Serum or Plasma 2023-03-23 19:55:35 51 U/L F 46.0-116.0 Phosphate [Mass/volume] in Serum or Plasma 2023-03-23 19:55:35 8.9 mg/dL F 2.4-5.1 Alkaline phosphatase [Enzymatic activity/volume] in Serum or Plasma 2023-03-23 19:55:35 51 U/L F 46.0-116.0 Phosphate [Mass/volume] in Serum or Plasma 2023-02-23 14:23:38 5.1 mg/dL F 2.4-5.1 Alkaline phosphatase [Enzymatic activity/volume] in Serum or Plasma 2023-02-23 14:23:38 57 U/L F 46.0-116.0 Alkaline phosphatase [Enzymatic activity/volume] in Serum or Plasma 2023-01-19 18:49:17 46 U/L F 46.0-116.0 Alkaline phosphatase [Enzymatic activity/volume] in Serum or Plasma 2022-12-22 18:13:11 55 U/L F 46.0-116.0 Alkaline phosphatase [Enzymatic activity/volume] in Serum or Plasma 2022-12-22 18:13:11 55 U/L F 46.0-116.0 Alkaline phosphatase [Enzymatic activity/volume] in Serum or Plasma 2022-12-22 18:13:11 55 U/L F 46.0-116.0 Calcium.ionized [Mass/volume] in Serum or Plasma 2022-05-08 14:41:15 F CANCELED - INCOR RECT TEST ORDERED,[id number] Calcium.ionized [Mass/volume] in Serum or Plasma 2022-05-08 14:41:15 F CANCELED - INCOR RECT TEST ORDERED,[id number] CA CORRECTED 2022-05-06 02:44:40 8.6 mg/dL F CA CORRECTED 2022-05-06 02:44:40 8.6 mg/dL F CA*PO4 CORRCTD 2022-05-06 02:32:00 45.6 Calc F 21.0-53.0 CA/PHOS PRODUCT 2022-05-06 02:32:00 45.6 Calc F 21.0-53.0 CA/PHOS PRODUCT 2022-05-06 02:32:00 45.6 Calc F 21.0-53.0 CA*PO4 CORRCTD 2022-05-06 02:32:00 45.6 Calc F 21.0-53.0 Calcium [Mass/volume] in Serum or Plasma 2022-05-06 02:20:10 8.6 mg/dL F 8.7-10.4 Calcium [Mass/volume] in Serum or Plasma 2022-05-06 02:20:10 8.6 mg/dL F 8.7-10.4 Phosphate [Mass/volume] in Serum or Plasma 2022-05-05 19:23:51 5.3 mg/dL F 2.4-5.1 Alkaline phosphatase [Enzymatic activity/volume] in Serum or Plasma 2022-05-05 19:23:51 53 U/L F 46.0-116.0 Phosphate [Mass/volume] in Serum or Plasma 2022-05-05 19:23:51 5.3 mg/dL F 2.4-5.1 Alkaline phosphatase [Enzymatic activity/volume] in Serum or Plasma 2022-05-05 19:23:51 53 U/L F 46.0-116.0 Parathyrin.intact [Mass/volume] in Serum or Plasma 2022-05-05 16:17:53 264 pg/mL F 18.0-80.0 Parathyrin.intact [Mass/volume] in Serum or Plasma 2022-05-05 16:17:53 264 pg/mL F 18.0-80.0 25-Hydroxyvitamin D3+25-Hydroxyvitami n D2 [Mass/volume] in Serum or Plasma 2022-05-05 15:49:56 44.2 ng/mL F 30.0-100.0 25-Hydroxyvitamin D3+25-Hydroxyvitami n D2 [Mass/volume] in Serum or Plasma 2022-05-05 15:49:56 44.2 ng/mL F 30.0-100.0 Nutrition Description Draw Date Result/Unit Status Ref Range Result Comments Potassium [Moles/volume] in Serum or Plasma 2025-03-21 01:51:49 5.5 mEq/L F 3.5-5.5 Potassium [Moles/volume] in Serum or Plasma 2025-03-21 01:51:49 5.5 mEq/L F 3.5-5.5 A/G RATIO 2025-03-20 13:19:48 1.5 Calc F 1.0-2.5 GLOBULIN 2025-03-20 13:19:48 2.7 g/dL F 0.9-5.0 A/G RATIO 2025-03-20 13:19:48 1.5 Calc F 1.0-2.5 GLOBULIN 2025-03-20 13:19:48 2.7 g/dL F 0.9-5.0 Albumin [Mass/volume] in Serum or Plasma by Bromocresol green (BCG) dye binding method 2025-03-20 13:19:07 4 g/dL F 3.4-4.8 Bicarbonate [Moles/volume] in Serum or Plasma 2025-03-20 13:19:07 23 mEq/L F 20.0-31.0 Lactate dehydrogenase [Enzymatic activity/volume] in Serum or Plasma 2025-03-20 13:19:07 374 U/L F 120.0-246.0 Protein [Mass/volume] in Serum or Plasma 2025-03-20 13:19:07 6.7 g/dL F 5.7-8.2 Albumin [Mass/volume] in Serum or Plasma by Bromocresol green (BCG) dye binding method 2025-03-20 13:19:07 4 g/dL F 3.4-4.8 Bicarbonate [Moles/volume] in Serum or Plasma 2025-03-20 13:19:07 23 mEq/L F 20.0-31.0 Lactate dehydrogenase [Enzymatic activity/volume] in Serum or Plasma 2025-03-20 13:19:07 374 U/L F 120.0-246.0 Protein [Mass/volume] in Serum or Plasma 2025-03-20 13:19:07 6.7 g/dL F 5.7-8.2 Potassium [Moles/volume] in Serum or Plasma 2025-02-21 05:50:38 5.1 mEq/L F 3.5-5.5 Potassium [Moles/volume] in Serum or Plasma 2025-02-21 05:50:38 5.1 mEq/L F 3.5-5.5 Potassium [Moles/volume] in Serum or Plasma 2025-02-21 05:50:38 5.1 mEq/L F 3.5-5.5 GLOBULIN 2025-02-20 18:27:20 2.7 g/dL F 0.9-5.0 A/G RATIO 2025-02-20 18:27:20 1.3 Calc F 1.0-2.5 A/G RATIO 2025-02-20 18:27:20 1.3 Calc F 1.0-2.5 GLOBULIN 2025-02-20 18:27:20 2.7 g/dL F 0.9-5.0 GLOBULIN 2025-02-20 18:27:20 2.7 g/dL F 0.9-5.0 A/G RATIO 2025-02-20 18:27:20 1.3 Calc F 1.0-2.5 Albumin [Mass/volume] in Serum or Plasma by Bromocresol green (BCG) dye binding method 2025-02-20 18:26:12 3.6 g/dL F 3.4-4.8 Lactate dehydrogenase [Enzymatic activity/volume] in Serum or Plasma 2025-02-20 18:26:12 338 U/L F 120.0-246.0 Bicarbonate [Moles/volume] in Serum or Plasma 2025-02-20 18:26:12 24 mEq/L F 20.0-31.0 Protein [Mass/volume] in Serum or Plasma 2025-02-20 18:26:12 6.3 g/dL F 5.7-8.2 Albumin [Mass/volume] in Serum or Plasma by Bromocresol green (BCG) dye binding method 2025-02-20 18:26:12 3.6 g/dL F 3.4-4.8 Lactate dehydrogenase [Enzymatic activity/volume] in Serum or Plasma 2025-02-20 18:26:12 338 U/L F 120.0-246.0 Protein [Mass/volume] in Serum or Plasma 2025-02-20 18:26:12 6.3 g/dL F 5.7-8.2 Bicarbonate [Moles/volume] in Serum or Plasma 2025-02-20 18:26:12 24 mEq/L F 20.0-31.0 Lactate dehydrogenase [Enzymatic activity/volume] in Serum or Plasma 2025-02-20 18:26:12 338 U/L F 120.0-246.0 Bicarbonate [Moles/volume] in Serum or Plasma 2025-02-20 18:26:12 24 mEq/L F 20.0-31.0 Albumin [Mass/volume] in Serum or Plasma by Bromocresol green (BCG) dye binding method 2025-02-20 18:26:12 3.6 g/dL F 3.4-4.8 Protein [Mass/volume] in Serum or Plasma 2025-02-20 18:26:12 6.3 g/dL F 5.7-8.2 Potassium [Moles/volume] in Serum or Plasma 2025-01-29 04:36:34 5.6 mEq/L F 3.5-5.5 A/G RATIO 2025-01-28 16:06:05 1.5 Calc F 1.0-2.5 GLOBULIN 2025-01-28 16:06:05 2.5 g/dL F 0.9-5.0 Albumin [Mass/volume] in Serum or Plasma by Bromocresol green (BCG) dye binding method 2025-01-28 16:05:12 3.7 g/dL F 3.4-4.8 Lactate dehydrogenase [Enzymatic activity/volume] in Serum or Plasma 2025-01-28 16:05:12 352 U/L F 120.0-246.0 Protein [Mass/volume] in Serum or Plasma 2025-01-28 16:05:12 6.2 g/dL F 5.7-8.2 Bicarbonate [Moles/volume] in Serum or Plasma 2025-01-28 16:05:12 24 mEq/L F 20.0-31.0 Potassium [Moles/volume] in Serum or Plasma 2024-12-19 22:46:05 5.4 mEq/L F 3.5-5.5 Potassium [Moles/volume] in Serum or Plasma 2024-12-19 22:46:05 5.4 mEq/L F 3.5-5.5 Potassium [Moles/volume] in Serum or Plasma 2024-12-19 22:46:05 5.4 mEq/L F 3.5-5.5 A/G RATIO 2024-12-19 14:07:19 1.6 Calc F 1.0-2.5 GLOBULIN 2024-12-19 14:07:19 2.6 g/dL F 0.9-5.0 GLOBULIN 2024-12-19 14:07:19 2.6 g/dL F 0.9-5.0 A/G RATIO 2024-12-19 14:07:19 1.6 Calc F 1.0-2.5 GLOBULIN 2024-12-19 14:07:19 2.6 g/dL F 0.9-5.0 A/G RATIO 2024-12-19 14:07:19 1.6 Calc F 1.0-2.5 Protein [Mass/volume] in Serum or Plasma 2024-12-19 14:06:19 6.8 g/dL F 5.7-8.2 Bicarbonate [Moles/volume] in Serum or Plasma 2024-12-19 14:06:19 21 mEq/L F 20.0-31.0 Albumin [Mass/volume] in Serum or Plasma by Bromocresol green (BCG) dye binding method 2024-12-19 14:06:19 4.2 g/dL F 3.4-4.8 Lactate dehydrogenase [Enzymatic activity/volume] in Serum or Plasma 2024-12-19 14:06:19 304 U/L F 120.0-246.0 Lactate dehydrogenase [Enzymatic activity/volume] in Serum or Plasma 2024-12-19 14:06:19 304 U/L F 120.0-246.0 Bicarbonate [Moles/volume] in Serum or Plasma 2024-12-19 14:06:19 21 mEq/L F 20.0-31.0 Albumin [Mass/volume] in Serum or Plasma by Bromocresol green (BCG) dye binding method 2024-12-19 14:06:19 4.2 g/dL F 3.4-4.8 Protein [Mass/volume] in Serum or Plasma 2024-12-19 14:06:19 6.8 g/dL F 5.7-8.2 Lactate dehydrogenase [Enzymatic activity/volume] in Serum or Plasma 2024-12-19 14:06:19 304 U/L F 120.0-246.0 Bicarbonate [Moles/volume] in Serum or Plasma 2024-12-19 14:06:19 21 mEq/L F 20.0-31.0 Albumin [Mass/volume] in Serum or Plasma by Bromocresol green (BCG) dye binding method 2024-12-19 14:06:19 4.2 g/dL F 3.4-4.8 Protein [Mass/volume] in Serum or Plasma 2024-12-19 14:06:19 6.8 g/dL F 5.7-8.2 Albumin [Mass/volume] in Serum or Plasma by Bromocresol green (BCG) dye binding method 2024-11-12 19:34:15 3.8 g/dL F 3.4-4.8 Albumin [Mass/volume] in Serum or Plasma by Bromocresol green (BCG) dye binding method 2024-11-12 19:34:15 3.8 g/dL F 3.4-4.8 Potassium [Moles/volume] in Serum or Plasma 2024-11-08 07:17:40 5 mEq/L F 3.5-5.5 Potassium [Moles/volume] in Serum or Plasma 2024-11-08 07:17:40 5 mEq/L F 3.5-5.5 Potassium [Moles/volume] in Serum or Plasma 2024-11-08 07:17:40 5 mEq/L F 3.5-5.5 A/G RATIO 2024-11-07 22:55:33 1.7 Calc F 1.0-2.5 GLOBULIN 2024-11-07 22:55:33 2.3 g/dL F 0.9-5.0 A/G RATIO 2024-11-07 22:55:33 1.7 Calc F 1.0-2.5 GLOBULIN 2024-11-07 22:55:33 2.3 g/dL F 0.9-5.0 GLOBULIN 2024-11-07 22:55:33 2.3 g/dL F 0.9-5.0 A/G RATIO 2024-11-07 22:55:33 1.7 Calc F 1.0-2.5 Lactate dehydrogenase [Enzymatic activity/volume] in Serum or Plasma 2024-11-07 22:54:27 316 U/L F 120.0-246.0 Protein [Mass/volume] in Serum or Plasma 2024-11-07 22:54:27 6.2 g/dL F 5.7-8.2 Bicarbonate [Moles/volume] in Serum or Plasma 2024-11-07 22:54:27 25 mEq/L F 20.0-31.0 Albumin [Mass/volume] in Serum or Plasma by Bromocresol green (BCG) dye binding method 2024-11-07 22:54:27 3.9 g/dL F 3.4-4.8 Albumin [Mass/volume] in Serum or Plasma by Bromocresol green (BCG) dye binding method 2024-11-07 22:54:27 3.9 g/dL F 3.4-4.8 Protein [Mass/volume] in Serum or Plasma 2024-11-07 22:54:27 6.2 g/dL F 5.7-8.2 Lactate dehydrogenase [Enzymatic activity/volume] in Serum or Plasma 2024-11-07 22:54:27 316 U/L F 120.0-246.0 Bicarbonate [Moles/volume] in Serum or Plasma 2024-11-07 22:54:27 25 mEq/L F 20.0-31.0 Lactate dehydrogenase [Enzymatic activity/volume] in Serum or Plasma 2024-11-07 22:54:27 316 U/L F 120.0-246.0 Bicarbonate [Moles/volume] in Serum or Plasma 2024-11-07 22:54:27 25 mEq/L F 20.0-31.0 Albumin [Mass/volume] in Serum or Plasma by Bromocresol green (BCG) dye binding method 2024-11-07 22:54:27 3.9 g/dL F 3.4-4.8 Protein [Mass/volume] in Serum or Plasma 2024-11-07 22:54:27 6.2 g/dL F 5.7-8.2 Potassium [Moles/volume] in Serum or Plasma 2024-09-19 19:35:06 4.6 mEq/L F 3.5-5.5 A/G RATIO 2024-09-19 17:00:23 1.5 Calc F 1.0-2.5 GLOBULIN 2024-09-19 17:00:23 2.6 g/dL F 0.9-5.0 Lactate dehydrogenase [Enzymatic activity/volume] in Serum or Plasma 2024-09-19 16:59:24 289 U/L F 120.0-246.0 Bicarbonate [Moles/volume] in Serum or Plasma 2024-09-19 16:59:24 28 mEq/L F 20.0-31.0 Albumin [Mass/volume] in Serum or Plasma by Bromocresol green (BCG) dye binding method 2024-09-19 16:59:24 4 g/dL F 3.4-4.8 Protein [Mass/volume] in Serum or Plasma 2024-09-19 16:59:24 6.6 g/dL F 5.7-8.2 Potassium [Moles/volume] in Serum or Plasma 2024-08-29 20:17:44 4.4 mEq/L F 3.5-5.5 Potassium [Moles/volume] in Serum or Plasma 2024-08-29 20:17:44 4.4 mEq/L F 3.5-5.5 GLOBULIN 2024-08-29 16:23:55 2.6 g/dL F 0.9-5.0 A/G RATIO 2024-08-29 16:23:55 1.5 Calc F 1.0-2.5 GLOBULIN 2024-08-29 16:23:55 2.6 g/dL F 0.9-5.0 A/G RATIO 2024-08-29 16:23:55 1.5 Calc F 1.0-2.5 Bicarbonate [Moles/volume] in Serum or Plasma 2024-08-29 16:23:21 28 mEq/L F 20.0-31.0 Protein [Mass/volume] in Serum or Plasma 2024-08-29 16:23:21 6.6 g/dL F 5.7-8.2 Lactate dehydrogenase [Enzymatic activity/volume] in Serum or Plasma 2024-08-29 16:23:21 230 U/L F 120.0-246.0 Albumin [Mass/volume] in Serum or Plasma by Bromocresol green (BCG) dye binding method 2024-08-29 16:23:21 4 g/dL F 3.4-4.8 Lactate dehydrogenase [Enzymatic activity/volume] in Serum or Plasma 2024-08-29 16:23:21 230 U/L F 120.0-246.0 Bicarbonate [Moles/volume] in Serum or Plasma 2024-08-29 16:23:21 28 mEq/L F 20.0-31.0 Albumin [Mass/volume] in Serum or Plasma by Bromocresol green (BCG) dye binding method 2024-08-29 16:23:21 4 g/dL F 3.4-4.8 Protein [Mass/volume] in Serum or Plasma 2024-08-29 16:23:21 6.6 g/dL F 5.7-8.2 Potassium [Moles/volume] in Serum or Plasma 2024-08-23 07:15:16 4.5 mEq/L F 3.5-5.5 Potassium [Moles/volume] in Serum or Plasma 2024-08-23 07:15:16 4.5 mEq/L F 3.5-5.5 Potassium [Moles/volume] in Serum or Plasma 2024-08-23 07:15:16 4.5 mEq/L F 3.5-5.5 GLOBULIN 2024-08-22 21:56:53 2.6 g/dL F 0.9-5.0 A/G RATIO 2024-08-22 21:56:53 1.6 Calc F 1.0-2.5 GLOBULIN 2024-08-22 21:56:53 2.6 g/dL F 0.9-5.0 A/G RATIO 2024-08-22 21:56:53 1.6 Calc F 1.0-2.5 GLOBULIN 2024-08-22 21:56:53 2.6 g/dL F 0.9-5.0 A/G RATIO 2024-08-22 21:56:53 1.6 Calc F 1.0-2.5 Lactate dehydrogenase [Enzymatic activity/volume] in Serum or Plasma 2024-08-22 21:55:14 217 U/L F 120.0-246.0 Bicarbonate [Moles/volume] in Serum or Plasma 2024-08-22 21:55:14 25 mEq/L F 20.0-31.0 Albumin [Mass/volume] in Serum or Plasma by Bromocresol green (BCG) dye binding method 2024-08-22 21:55:14 4.2 g/dL F 3.4-4.8 Protein [Mass/volume] in Serum or Plasma 2024-08-22 21:55:14 6.8 g/dL F 5.7-8.2 Lactate dehydrogenase [Enzymatic activity/volume] in Serum or Plasma 2024-08-22 21:55:14 217 U/L F 120.0-246.0 Albumin [Mass/volume] in Serum or Plasma by Bromocresol green (BCG) dye binding method 2024-08-22 21:55:14 4.2 g/dL F 3.4-4.8 Protein [Mass/volume] in Serum or Plasma 2024-08-22 21:55:14 6.8 g/dL F 5.7-8.2 Bicarbonate [Moles/volume] in Serum or Plasma 2024-08-22 21:55:14 25 mEq/L F 20.0-31.0 Lactate dehydrogenase [Enzymatic activity/volume] in Serum or Plasma 2024-08-22 21:55:14 217 U/L F 120.0-246.0 Bicarbonate [Moles/volume] in Serum or Plasma 2024-08-22 21:55:14 25 mEq/L F 20.0-31.0 Albumin [Mass/volume] in Serum or Plasma by Bromocresol green (BCG) dye binding method 2024-08-22 21:55:14 4.2 g/dL F 3.4-4.8 Protein [Mass/volume] in Serum or Plasma 2024-08-22 21:55:14 6.8 g/dL F 5.7-8.2 CHOL/HDL RATIO 2024-05-24 08:31:11 3.8 Calc F 3.3-5.0 CHOL/HDL RATIO 2024-05-24 08:31:11 3.8 Calc F 3.3-5.0 CHOL/HDL RATIO 2024-05-24 08:31:11 3.8 Calc F 3.3-5.0 Potassium [Moles/volume] in Serum or Plasma 2024-05-23 16:57:22 6.1 mEq/L F 3.5-5.5 Potassium [Moles/volume] in Serum or Plasma 2024-05-23 16:57:22 6.1 mEq/L F 3.5-5.5 Potassium [Moles/volume] in Serum or Plasma 2024-05-23 16:57:22 6.1 mEq/L F 3.5-5.5 VLDL-CHOL(CALC) 2024-05-23 15:47:33 26 mg/dL F 0.0-29.0 LDL-CHOLESTEROL 2024-05-23 15:47:33 92 mg/dL F 0.0-99.0 GLOBULIN 2024-05-23 15:47:33 2.7 g/dL F 0.9-5.0 A/G RATIO 2024-05-23 15:47:33 1.6 Calc F 1.0-2.5 VLDL-CHOL(CALC) 2024-05-23 15:47:33 26 mg/dL F 0.0-29.0 GLOBULIN 2024-05-23 15:47:33 2.7 g/dL F 0.9-5.0 LDL-CHOLESTEROL 2024-05-23 15:47:33 92 mg/dL F 0.0-99.0 A/G RATIO 2024-05-23 15:47:33 1.6 Calc F 1.0-2.5 VLDL-CHOL(CALC) 2024-05-23 15:47:33 26 mg/dL F 0.0-29.0 LDL-CHOLESTEROL 2024-05-23 15:47:33 92 mg/dL F 0.0-99.0 GLOBULIN 2024-05-23 15:47:33 2.7 g/dL F 0.9-5.0 A/G RATIO 2024-05-23 15:47:33 1.6 Calc F 1.0-2.5 Lactate dehydrogenase [Enzymatic activity/volume] in Serum or Plasma 2024-05-23 15:46:24 210 U/L F 120.0-246.0 Cholesterol in HDL [Mass/volume] in Serum or Plasma 2024-05-23 15:46:24 42 mg/dL F 40.0-60.0 Lactate dehydrogenase [Enzymatic activity/volume] in Serum or Plasma 2024-05-23 15:46:24 210 U/L F 120.0-246.0 Cholesterol in HDL [Mass/volume] in Serum or Plasma 2024-05-23 15:46:24 42 mg/dL F 40.0-60.0 Lactate dehydrogenase [Enzymatic activity/volume] in Serum or Plasma 2024-05-23 15:46:24 210 U/L F 120.0-246.0 Cholesterol in HDL [Mass/volume] in Serum or Plasma 2024-05-23 15:46:24 42 mg/dL F 40.0-60.0 Protein [Mass/volume] in Serum or Plasma 2024-05-23 15:46:22 128 mg/dL F 0.0-149.0 Cholesterol [Mass/volume] in Serum or Plasma 2024-05-23 15:46:22 160 mg/dL F 0.0-199.0 Bicarbonate [Moles/volume] in Serum or Plasma 2024-05-23 15:46:22 26 mEq/L F 20.0-31.0 Albumin [Mass/volume] in Serum or Plasma by Bromocresol green (BCG) dye binding method 2024-05-23 15:46:22 4.2 g/dL F 3.4-4.8 Protein [Mass/volume] in Serum or Plasma 2024-05-23 15:46:22 6.9 g/dL F 5.7-8.2 Protein [Mass/volume] in Serum or Plasma 2024-05-23 15:46:22 128 mg/dL F 0.0-149.0 Cholesterol [Mass/volume] in Serum or Plasma 2024-05-23 15:46:22 160 mg/dL F 0.0-199.0 Bicarbonate [Moles/volume] in Serum or Plasma 2024-05-23 15:46:22 26 mEq/L F 20.0-31.0 Albumin [Mass/volume] in Serum or Plasma by Bromocresol green (BCG) dye binding method 2024-05-23 15:46:22 4.2 g/dL F 3.4-4.8 Protein [Mass/volume] in Serum or Plasma 2024-05-23 15:46:22 6.9 g/dL F 5.7-8.2 Protein [Mass/volume] in Serum or Plasma 2024-05-23 15:46:22 128 mg/dL F 0.0-149.0 Cholesterol [Mass/volume] in Serum or Plasma 2024-05-23 15:46:22 160 mg/dL F 0.0-199.0 Bicarbonate [Moles/volume] in Serum or Plasma 2024-05-23 15:46:22 26 mEq/L F 20.0-31.0 Albumin [Mass/volume] in Serum or Plasma by Bromocresol green (BCG) dye binding method 2024-05-23 15:46:22 4.2 g/dL F 3.4-4.8 Protein [Mass/volume] in Serum or Plasma 2024-05-23 15:46:22 6.9 g/dL F 5.7-8.2 Potassium [Moles/volume] in Serum or Plasma 2023-09-22 02:12:23 4.4 mEq/L F 3.5-5.5 GLOBULIN 2023-09-21 15:51:07 2.4 g/dL F 0.9-5.0 A/G RATIO 2023-09-21 15:51:07 1.8 Calc F 1.0-2.5 Lactate dehydrogenase [Enzymatic activity/volume] in Serum or Plasma 2023-09-21 15:50:35 195 U/L F 120.0-246.0 Bicarbonate [Moles/volume] in Serum or Plasma 2023-09-21 15:50:35 20 mEq/L F 20.0-31.0 Albumin [Mass/volume] in Serum or Plasma by Bromocresol green (BCG) dye binding method 2023-09-21 15:50:35 4.2 g/dL F 3.4-4.8 Protein [Mass/volume] in Serum or Plasma 2023-09-21 15:50:35 6.6 g/dL F 5.7-8.2 Potassium [Moles/volume] in Serum or Plasma 2023-08-24 17:28:31 4.3 mEq/L F 3.5-5.5 Potassium [Moles/volume] in Serum or Plasma 2023-08-24 17:28:31 4.3 mEq/L F 3.5-5.5 Potassium [Moles/volume] in Serum or Plasma 2023-08-24 17:28:31 4.3 mEq/L F 3.5-5.5 GLOBULIN 2023-08-24 16:20:25 2.4 g/dL F 0.9-5.0 A/G RATIO 2023-08-24 16:20:25 1.6 Calc F 1.0-2.5 GLOBULIN 2023-08-24 16:20:25 2.4 g/dL F 0.9-5.0 A/G RATIO 2023-08-24 16:20:25 1.6 Calc F 1.0-2.5 A/G RATIO 2023-08-24 16:20:25 1.6 Calc F 1.0-2.5 GLOBULIN 2023-08-24 16:20:25 2.4 g/dL F 0.9-5.0 Lactate dehydrogenase [Enzymatic activity/volume] in Serum or Plasma 2023-08-24 16:20:03 203 U/L F 120.0-246.0 Bicarbonate [Moles/volume] in Serum or Plasma 2023-08-24 16:20:03 27 mEq/L F 20.0-31.0 Albumin [Mass/volume] in Serum or Plasma by Bromocresol green (BCG) dye binding method 2023-08-24 16:20:03 3.9 g/dL F 3.4-4.8 Protein [Mass/volume] in Serum or Plasma 2023-08-24 16:20:03 6.3 g/dL F 5.7-8.2 Lactate dehydrogenase [Enzymatic activity/volume] in Serum or Plasma 2023-08-24 16:20:03 203 U/L F 120.0-246.0 Bicarbonate [Moles/volume] in Serum or Plasma 2023-08-24 16:20:03 27 mEq/L F 20.0-31.0 Albumin [Mass/volume] in Serum or Plasma by Bromocresol green (BCG) dye binding method 2023-08-24 16:20:03 3.9 g/dL F 3.4-4.8 Protein [Mass/volume] in Serum or Plasma 2023-08-24 16:20:03 6.3 g/dL F 5.7-8.2 Lactate dehydrogenase [Enzymatic activity/volume] in Serum or Plasma 2023-08-24 16:20:03 203 U/L F 120.0-246.0 Bicarbonate [Moles/volume] in Serum or Plasma 2023-08-24 16:20:03 27 mEq/L F 20.0-31.0 Albumin [Mass/volume] in Serum or Plasma by Bromocresol green (BCG) dye binding method 2023-08-24 16:20:03 3.9 g/dL F 3.4-4.8 Protein [Mass/volume] in Serum or Plasma 2023-08-24 16:20:03 6.3 g/dL F 5.7-8.2 Potassium [Moles/volume] in Serum or Plasma 2023-07-20 21:08:52 5 mEq/L F 3.5-5.5 Potassium [Moles/volume] in Serum or Plasma 2023-07-20 21:08:52 5 mEq/L F 3.5-5.5 GLOBULIN 2023-07-20 16:09:16 2.8 g/dL F 0.9-5.0 A/G RATIO 2023-07-20 16:09:16 1.6 Calc F 1.0-2.5 GLOBULIN 2023-07-20 16:09:16 2.8 g/dL F 0.9-5.0 A/G RATIO 2023-07-20 16:09:16 1.6 Calc F 1.0-2.5 Albumin [Mass/volume] in Serum or Plasma by Bromocresol green (BCG) dye binding method 2023-07-20 16:08:42 4.5 g/dL F 3.4-4.8 Albumin [Mass/volume] in Serum or Plasma by Bromocresol green (BCG) dye binding method 2023-07-20 16:08:42 4.5 g/dL F 3.4-4.8 Lactate dehydrogenase [Enzymatic activity/volume] in Serum or Plasma 2023-07-20 16:08:39 315 U/L F 120.0-246.0 Bicarbonate [Moles/volume] in Serum or Plasma 2023-07-20 16:08:39 28 mEq/L F 20.0-31.0 Lactate dehydrogenase [Enzymatic activity/volume] in Serum or Plasma 2023-07-20 16:08:39 315 U/L F 120.0-246.0 Bicarbonate [Moles/volume] in Serum or Plasma 2023-07-20 16:08:39 28 mEq/L F 20.0-31.0 Protein [Mass/volume] in Serum or Plasma 2023-07-20 16:08:38 7.3 g/dL F 5.7-8.2 Protein [Mass/volume] in Serum or Plasma 2023-07-20 16:08:38 7.3 g/dL F 5.7-8.2 Potassium [Moles/volume] in Serum or Plasma 2023-06-22 18:28:41 4.3 mEq/L F 3.5-5.5 Potassium [Moles/volume] in Serum or Plasma 2023-06-22 18:28:41 4.3 mEq/L F 3.5-5.5 Potassium [Moles/volume] in Serum or Plasma 2023-06-22 18:28:41 4.3 mEq/L F 3.5-5.5 GLOBULIN 2023-06-22 15:18:36 2.9 g/dL F 0.9-5.0 A/G RATIO 2023-06-22 15:18:36 1.4 Calc F 1.0-2.5 A/G RATIO 2023-06-22 15:18:36 1.4 Calc F 1.0-2.5 GLOBULIN 2023-06-22 15:18:36 2.9 g/dL F 0.9-5.0 GLOBULIN 2023-06-22 15:18:36 2.9 g/dL F 0.9-5.0 A/G RATIO 2023-06-22 15:18:36 1.4 Calc F 1.0-2.5 Lactate dehydrogenase [Enzymatic activity/volume] in Serum or Plasma 2023-06-22 15:18:32 242 U/L F 120.0-246.0 Bicarbonate [Moles/volume] in Serum or Plasma 2023-06-22 15:18:32 24 mEq/L F 20.0-31.0 Albumin [Mass/volume] in Serum or Plasma by Bromocresol green (BCG) dye binding method 2023-06-22 15:18:32 4.1 g/dL F 3.4-4.8 Protein [Mass/volume] in Serum or Plasma 2023-06-22 15:18:32 7 g/dL F 5.7-8.2 Lactate dehydrogenase [Enzymatic activity/volume] in Serum or Plasma 2023-06-22 15:18:32 242 U/L F 120.0-246.0 Albumin [Mass/volume] in Serum or Plasma by Bromocresol green (BCG) dye binding method 2023-06-22 15:18:32 4.1 g/dL F 3.4-4.8 Protein [Mass/volume] in Serum or Plasma 2023-06-22 15:18:32 7 g/dL F 5.7-8.2 Bicarbonate [Moles/volume] in Serum or Plasma 2023-06-22 15:18:32 24 mEq/L F 20.0-31.0 Lactate dehydrogenase [Enzymatic activity/volume] in Serum or Plasma 2023-06-22 15:18:32 242 U/L F 120.0-246.0 Bicarbonate [Moles/volume] in Serum or Plasma 2023-06-22 15:18:32 24 mEq/L F 20.0-31.0 Albumin [Mass/volume] in Serum or Plasma by Bromocresol green (BCG) dye binding method 2023-06-22 15:18:32 4.1 g/dL F 3.4-4.8 Protein [Mass/volume] in Serum or Plasma 2023-06-22 15:18:32 7 g/dL F 5.7-8.2 VLDL-CHOL(CALC) 2023-05-18 20:22:23 12 mg/dL F 0.0-29.0 LDL-CHOLESTEROL 2023-05-18 20:22:23 76 mg/dL F 0.0-99.0 GLOBULIN 2023-05-18 20:22:23 2.4 g/dL F 0.9-5.0 A/G RATIO 2023-05-18 20:22:23 1.6 Calc F 1.0-2.5 CHOL/HDL RATIO 2023-05-18 20:22:23 3.3 Calc F 3.3-5.0 Protein [Mass/volume] in Serum or Plasma 2023-05-18 20:21:37 60 mg/dL F 0.0-149.0 Cholesterol [Mass/volume] in Serum or Plasma 2023-05-18 20:21:37 127 mg/dL F 0.0-199.0 Lactate dehydrogenase [Enzymatic activity/volume] in Serum or Plasma 2023-05-18 20:21:37 189 U/L F 120.0-246.0 Bicarbonate [Moles/volume] in Serum or Plasma 2023-05-18 20:21:37 22 mEq/L F 20.0-31.0 Albumin [Mass/volume] in Serum or Plasma by Bromocresol green (BCG) dye binding method 2023-05-18 20:21:37 3.9 g/dL F 3.4-4.8 Potassium [Moles/volume] in Serum or Plasma 2023-05-18 20:21:37 4.6 mEq/L F 3.5-5.5 Cholesterol in HDL [Mass/volume] in Serum or Plasma 2023-05-18 20:21:37 39 mg/dL F 40.0-60.0 Protein [Mass/volume] in Serum or Plasma 2023-05-18 20:21:37 6.3 g/dL F 5.7-8.2 GLOBULIN 2023-04-20 19:36:12 2.5 g/dL F 0.9-5.0 A/G RATIO 2023-04-20 19:36:12 1.7 Calc F 1.0-2.5 Lactate dehydrogenase [Enzymatic activity/volume] in Serum or Plasma 2023-04-20 19:35:36 282 U/L F 120.0-246.0 Bicarbonate [Moles/volume] in Serum or Plasma 2023-04-20 19:35:36 23 mEq/L F 20.0-31.0 Albumin [Mass/volume] in Serum or Plasma by Bromocresol green (BCG) dye binding method 2023-04-20 19:35:36 4.2 g/dL F 3.4-4.8 Protein [Mass/volume] in Serum or Plasma 2023-04-20 19:35:36 6.7 g/dL F 5.7-8.2 Potassium [Moles/volume] in Serum or Plasma 2023-04-20 19:35:36 5.2 mEq/L F 3.5-5.5 GLOBULIN 2023-03-23 19:56:11 2.9 g/dL F 0.9-5.0 A/G RATIO 2023-03-23 19:56:11 1.4 Calc F 1.0-2.5 GLOBULIN 2023-03-23 19:56:11 2.9 g/dL F 0.9-5.0 A/G RATIO 2023-03-23 19:56:11 1.4 Calc F 1.0-2.5 Lactate dehydrogenase [Enzymatic activity/volume] in Serum or Plasma 2023-03-23 19:55:35 208 U/L F 120.0-246.0 Bicarbonate [Moles/volume] in Serum or Plasma 2023-03-23 19:55:35 24 mEq/L F 20.0-31.0 Albumin [Mass/volume] in Serum or Plasma by Bromocresol green (BCG) dye binding method 2023-03-23 19:55:35 4.1 g/dL F 3.4-4.8 Potassium [Moles/volume] in Serum or Plasma 2023-03-23 19:55:35 5.3 mEq/L F 3.5-5.5 Protein [Mass/volume] in Serum or Plasma 2023-03-23 19:55:35 7 g/dL F 5.7-8.2 Lactate dehydrogenase [Enzymatic activity/volume] in Serum or Plasma 2023-03-23 19:55:35 208 U/L F 120.0-246.0 Bicarbonate [Moles/volume] in Serum or Plasma 2023-03-23 19:55:35 24 mEq/L F 20.0-31.0 Potassium [Moles/volume] in Serum or Plasma 2023-03-23 19:55:35 5.3 mEq/L F 3.5-5.5 Albumin [Mass/volume] in Serum or Plasma by Bromocresol green (BCG) dye binding method 2023-03-23 19:55:35 4.1 g/dL F 3.4-4.8 Protein [Mass/volume] in Serum or Plasma 2023-03-23 19:55:35 7 g/dL F 5.7-8.2 GLOBULIN 2023-02-23 14:24:07 2.8 g/dL F 0.9-5.0 A/G RATIO 2023-02-23 14:24:07 1.5 Calc F 1.0-2.5 Lactate dehydrogenase [Enzymatic activity/volume] in Serum or Plasma 2023-02-23 14:23:38 208 U/L F 120.0-246.0 Bicarbonate [Moles/volume] in Serum or Plasma 2023-02-23 14:23:38 25 mEq/L F 20.0-31.0 Albumin [Mass/volume] in Serum or Plasma by Bromocresol green (BCG) dye binding method 2023-02-23 14:23:38 4.3 g/dL F 3.4-4.8 Potassium [Moles/volume] in Serum or Plasma 2023-02-23 14:23:38 4.7 mEq/L F 3.5-5.5 Protein [Mass/volume] in Serum or Plasma 2023-02-23 14:23:38 7.1 g/dL F 5.7-8.2 GLOBULIN 2023-01-19 18:50:01 2.6 g/dL F 0.9-5.0 A/G RATIO 2023-01-19 18:50:01 1.6 Calc F 1.0-2.5 Lactate dehydrogenase [Enzymatic activity/volume] in Serum or Plasma 2023-01-19 18:49:17 219 U/L F 120.0-246.0 Bicarbonate [Moles/volume] in Serum or Plasma 2023-01-19 18:49:17 26 mEq/L F 20.0-31.0 Albumin [Mass/volume] in Serum or Plasma by Bromocresol green (BCG) dye binding method 2023-01-19 18:49:17 4.1 g/dL F 3.4-4.8 Potassium [Moles/volume] in Serum or Plasma 2023-01-19 18:49:17 4.1 mEq/L F 3.5-5.5 Protein [Mass/volume] in Serum or Plasma 2023-01-19 18:49:17 6.7 g/dL F 5.7-8.2 GLOBULIN 2022-12-22 18:13:42 2.8 g/dL F 0.9-5.0 A/G RATIO 2022-12-22 18:13:42 1.6 Calc F 1.0-2.5 A/G RATIO 2022-12-22 18:13:42 1.6 Calc F 1.0-2.5 GLOBULIN 2022-12-22 18:13:42 2.8 g/dL F 0.9-5.0 GLOBULIN 2022-12-22 18:13:42 2.8 g/dL F 0.9-5.0 A/G RATIO 2022-12-22 18:13:42 1.6 Calc F 1.0-2.5 Potassium [Moles/volume] in Serum or Plasma 2022-12-22 18:13:13 5 mEq/L F 3.5-5.5 Potassium [Moles/volume] in Serum or Plasma 2022-12-22 18:13:13 5 mEq/L F 3.5-5.5 Potassium [Moles/volume] in Serum or Plasma 2022-12-22 18:13:13 5 mEq/L F 3.5-5.5 Lactate dehydrogenase [Enzymatic activity/volume] in Serum or Plasma 2022-12-22 18:13:11 245 U/L F 120.0-246.0 Bicarbonate [Moles/volume] in Serum or Plasma 2022-12-22 18:13:11 26 mEq/L F 20.0-31.0 Albumin [Mass/volume] in Serum or Plasma by Bromocresol green (BCG) dye binding method 2022-12-22 18:13:11 4.5 g/dL F 3.4-4.8 Protein [Mass/volume] in Serum or Plasma 2022-12-22 18:13:11 7.3 g/dL F 5.7-8.2 Lactate dehydrogenase [Enzymatic activity/volume] in Serum or Plasma 2022-12-22 18:13:11 245 U/L F 120.0-246.0 Protein [Mass/volume] in Serum or Plasma 2022-12-22 18:13:11 7.3 g/dL F 5.7-8.2 Bicarbonate [Moles/volume] in Serum or Plasma 2022-12-22 18:13:11 26 mEq/L F 20.0-31.0 Albumin [Mass/volume] in Serum or Plasma by Bromocresol green (BCG) dye binding method 2022-12-22 18:13:11 4.5 g/dL F 3.4-4.8 Bicarbonate [Moles/volume] in Serum or Plasma 2022-12-22 18:13:11 26 mEq/L F 20.0-31.0 Albumin [Mass/volume] in Serum or Plasma by Bromocresol green (BCG) dye binding method 2022-12-22 18:13:11 4.5 g/dL F 3.4-4.8 Lactate dehydrogenase [Enzymatic activity/volume] in Serum or Plasma 2022-12-22 18:13:11 245 U/L F 120.0-246.0 Protein [Mass/volume] in Serum or Plasma 2022-12-22 18:13:11 7.3 g/dL F 5.7-8.2 GLOBULIN 2022-05-06 00:54:01 2.5 g/dL K 0.9-5.0 A/G RATIO 2022-05-06 00:54:01 1.7 Calc K 1.0-2.5 GLOBULIN 2022-05-06 00:54:01 2.5 g/dL K 0.9-5.0 A/G RATIO 2022-05-06 00:54:01 1.7 Calc K 1.0-2.5 VLDL-CHOL(CALC) 2022-05-05 19:23:59 19 mg/dL F 0.0-29.0 LDL-CHOLESTEROL 2022-05-05 19:23:59 73 mg/dL F 0.0-99.0 CHOL/HDL RATIO 2022-05-05 19:23:59 3.2 Calc F 3.3-5.0 VLDL-CHOL(CALC) 2022-05-05 19:23:59 19 mg/dL F 0.0-29.0 LDL-CHOLESTEROL 2022-05-05 19:23:59 73 mg/dL F 0.0-99.0 CHOL/HDL RATIO 2022-05-05 19:23:59 3.2 Calc F 3.3-5.0 Protein [Mass/volume] in Serum or Plasma 2022-05-05 19:23:51 96 mg/dL F 0.0-149.0 Cholesterol [Mass/volume] in Serum or Plasma 2022-05-05 19:23:51 134 mg/dL F 0.0-199.0 Lactate dehydrogenase [Enzymatic activity/volume] in Serum or Plasma 2022-05-05 19:23:51 188 U/L F 120.0-246.0 Bicarbonate [Moles/volume] in Serum or Plasma 2022-05-05 19:23:51 28 mEq/L F 20.0-31.0 Albumin [Mass/volume] in Serum or Plasma by Bromocresol green (BCG) dye binding method 2022-05-05 19:23:51 4.2 g/dL F 3.4-4.8 Potassium [Moles/volume] in Serum or Plasma 2022-05-05 19:23:51 4.4 mEq/L F 3.5-5.5 Cholesterol in HDL [Mass/volume] in Serum or Plasma 2022-05-05 19:23:51 42 mg/dL F 40.0-60.0 Protein [Mass/volume] in Serum or Plasma 2022-05-05 19:23:51 6.7 g/dL F 5.7-8.2 Protein [Mass/volume] in Serum or Plasma 2022-05-05 19:23:51 96 mg/dL F 0.0-149.0 Cholesterol [Mass/volume] in Serum or Plasma 2022-05-05 19:23:51 134 mg/dL F 0.0-199.0 Lactate dehydrogenase [Enzymatic activity/volume] in Serum or Plasma 2022-05-05 19:23:51 188 U/L F 120.0-246.0 Bicarbonate [Moles/volume] in Serum or Plasma 2022-05-05 19:23:51 28 mEq/L F 20.0-31.0 Potassium [Moles/volume] in Serum or Plasma 2022-05-05 19:23:51 4.4 mEq/L F 3.5-5.5 Albumin [Mass/volume] in Serum or Plasma by Bromocresol green (BCG) dye binding method 2022-05-05 19:23:51 4.2 g/dL F 3.4-4.8 Cholesterol in HDL [Mass/volume] in Serum or Plasma 2022-05-05 19:23:51 42 mg/dL F 40.0-60.0 Protein [Mass/volume] in Serum or Plasma 2022-05-05 19:23:51 6.7 g/dL F 5.7-8.2 Encounters No encounter information to report Immunizations Ordered Immunization Name Filled Immunization Name Date Status Comments Refusal Reason TST-PPD intradermal 2024-07-15 17:13:53 Influenza Vaccination 2024-05-05 05:00:00 Influenza Vaccination 2023-10-30 04:00:00 TST-PPD intradermal 2023-08-14 16:02:00 Covid-19 Vaccination 2023-04-27 04:00:00 Pneumococcal conjugate PCV20, polysaccharide [id number] conjugate, adjuvant, PF 2023-04-27 04:00:00 Influenza Vaccination 2023-02-22 04:00:00 Tetanus Vaccination 2022-12-06 04:00:00 Pneumococcal Vaccination 2022-12-05 04:00:00 Influenza Vaccination 2022-03-02 04:00:00 Covid-19 Vaccination 2020-11-30 08:00:00 Covid-19 Vaccination 2020-11-03 08:00:00 Plan of Treatment Planned Activity Provider Planned Date Details Commen ts Diagnostic Test Pending Calin Wild 2024-11-15 05:48:09 Ferritin [Mass/volume] in Serum or Plasma [code = 2276-4] Diagnostic Test Pending Calin Wild 2024-11-30 04:00:00 Hemoglobin [Mass/volume] in Blood [code = 718-7] Diagnostic Test Pending Calin Wild 2024-11-22 05:44:12 Ferritin [Mass/volume] in Serum or Plasma [code = 2276-4] Diagnostic Test Pending Calin Wild 2025-01-20 05:38:54 Hemoglobin [Mass/volume] in Blood [code = 718-7] [facility] 2025-[facility]-30 05:41:56 Hemoglobin [Mass/volume] in Blood [code = 718-7] Diagnostic Test Pending [facility] 2025-02-09 05:20:24 Hemoglobin [Mass/volume] in Blood [code = 718-7] Diagnostic Test Pending [facility] 2025-03-02 04:00:00 Ferritin [Mass/volume] in Serum or Plasma [code = 2276-4] Future Scheduled Test [facility] 2025-05-02 04:00:00 Ferritin [Mass/volume] in Serum or Plasma [code = 2276-4] Diagnostic Test Pending [facility] 2024-09-06 06:47:31 Ferritin [Mass/volume] in Serum or Plasma [code = 2276-4] Diagnostic Test Pending [facility] 2024-09-22 05:24:53 Hemoglobin [Mass/volume] in Blood [code = 718-7] Diagnostic Test Pending [facility] 2022-03-02 04:00:00 Parathyrin.intact [Mass/volume] in Serum or Plasma [code = 2731-8] Diagnostic Test Pending [facility] 2024-11-07 04:00:00 Albumin [Mass/volume] in Serum or Plasma by Bromocresol green (BCG) dye binding method [code = 43357-9] Diagnostic [facility] 2022-03-02 04:00:00 Sodium [Moles/volume] in Serum or Plasma [code = 2951-2] Diagnostic Test Pending [facility] 2022-02-26 08:32:56 Alanine aminotransferase [Enzymatic activity/volume] in Serum or Plasma [code = 1742-6] Diagnostic Test Pending [facility] 2022-02-26 04:00:00 Aluminum [Mass/volume] in Serum or Plasma [code = 5574-9] Diagnostic Test Pending [facility] 2022-02-26 04:00:00 25-Hydroxyvitamin D3+25-Hydroxyvitamin D2 [Mass/volume] in Serum or Plasma [code = 57895-2] Diagnostic Test Pending [facility] 2022-03-02 04:00:00 Creatinine [Mass/volume] in Serum or Plasma [code = 2160-0] Diagnostic Test Pending Calin Wild [facility] 2025-02-27 04:00:00 In-Center Hemodialysis Treatment [code = ZAT568] Diagnostic Test Pending Calin Wild [facility] 2025-02-23 17:52:35 In-Center Hemodialysis Treatment [code = VVI599] Diagnostic Test Pending Jana Rosenberganoop Elliott [facility] 2025-02-06 04:00:00 In-Center Hemodialysis Treatment [code = NEB432] Diagnostic Test Pending Calin Wild [facility] 2025-01-26 12:23:13 In-Center Hemodialysis Treatment [code = HEZ900] Diagnostic Test Pending Calin Wild [facility] 2024-12-29 18:45:25 Sequential Treatment [code = QZJ336] Diagnostic Test Pending Calin Wild [facility] 2024-11-06 19:45:43 In-Center Hemodialysis Treatment [code = SRG719] Diagnostic Test Pending Calin Wild [facility] 2024-10-08 04:00:00 In-Center Hemodialysis Treatment [code = EXT467] Other Order Calin Wild [facility] 2024-08-15 18:17:58 Diet Order [facility] February 10, 2022 Diet Calorie 25 kcal/kg Fluid Value 1000 mL/d Phosphorus Value 800 mg/d Potassium Value 2000 mg/d Protein Value 1.2 gm/kg Sodium Value 2000 mg/d Calculated Weight 78 kg mmHg BP Sitting (Post-Dialysis) 136/94 mmHg Concurrent Access: falseAV Graft Upper Arm (Right) Arterial BP Standing (Pre-Dialysis) 126/98 mmHg BP Standing (P ost-Dialysis) 138/97 mmHg Sitting Heart Rate Pre-Dialysis 69 BPM Sitting Heart Rate Post-Dialysis 92 BPM Standing Heart Rate Pre-Dialysis 95 BPM Standing Heart Rate Post-Dialysis 92 BPM Temperature Pre-Dialysis 98.1 degF Temperature Post -Dialysis 98 degF January 15, 2025 In-Center Hemodialysis Treatment 7779-59-64P12:24:57.000Z 7896-99-53R71:16:28.000Z BP Sitting (Pre-Dialysis) 122/79 mmHg BP Sitting (Post-Dialysis) 164/109 mmHg Concurrent Access: falseAV Graft Upper Arm (Right) Arterial BP Standing (Pre-Dialysis) 112/66 mmHg Sitting Heart Rate Post-Dialysis 71 BPM Sitting Heart Rate Pre-Dialysis 80 BPM Temperatu re Post-Dialysis 98 degF Standing Heart Rate Pre-Dialysis 52 BPM Temperature Pre-Dialysis 97.2 degF January 06, 2025 In-Center Hemodialysis Treatment 4812-68-73U68:46:06.000Z 3022-37-15X04:32:57.000Z BP Sitting (Pre-Dialysis) 130/91 mmHg BP Sitting (Post-Dialysis) 137/103 mmHg Concurrent Access: falseAV Graft Upper Arm (Right) Arterial BP Standing (Pre-Dialysis) 136/92 mmHg BP Standing (P ost-Dialysis) 146/96 mmHg Sitting Heart Rate Pre-Dialysis 96 BPM Sitting Heart Rate Post-Dialysis 80 BPM Standing Heart Rate Pre-Dialysis 97 BPM Standing Heart Rate Post-Dialysis 80 BPM Temperature Pre-Dialysis 98 degF Temperature Post -Dialysis 98 degF January 03, 2025 In-Center Hemodialysis Treatment [id number]:01:20.000Z 0613-90-43P90:52:21.000Z BP Sitting (Pre-Dialysis) 148/98 mmHg BP Sitting (Post-Dialysis) 158/109 mmHg Concurrent Access: falseAV Graft Upper Arm (Right) Arterial Sitting Heart Rate Pre-Dialysis 97 BPM BP Standi ng (Post-Dialysis) 136/93 mmHg Temperature Pre-Dialysis 98 degF Sitting Heart Ra te Post-Dialysis 92 BPM Standing Heart Rate Post-Cuca lysis 74 BPM Temperature Post-Dialysis 98 degF January 01, 2025 In-Center Hemodialysis Treatment [id number]:44:48.000Z 4443-65-87O64:45:09.000Z BP Sitting (Pre-Dialysis) 146/102 mmHg BP Sitting (Post-Dialysis) 154/104 mmHg Concurrent Access: falseAV Graft Upper Arm (Right) Arterial BP Standing (Pre-Dialysis) 152/117 mmHg Sitti ng Heart Rate Post-Dialysis 80 BPM Sitting Heart Rate Pre-Dialysis 104 BPM Temperatu re Post-Dialysis 98 degF Standing Heart Rate Pre-Dialysis 96 BPM Temperature Pre-Dialysis 97.4 degF December 30, 2024 In-Center Hemodialysis Treatment [id number]:31:05.000Z 9684-15-80H55:12:36.000Z BP Sitting (Pre-Dialysis) 149/78 mmHg BP Sitting (Post-Dialysis) 127/83 mmHg Concurrent Access: falseAV Graft Upper Arm (Right) Arterial BP Standing (Pre-Dialysis) 116/71 mmHg Sitting Heart Rate Post-Dialysis 73 BPM Sitting Heart Rate Pre-Dialysis 81 BPM Temperatu re Post-Dialysis 98 degF Standing Heart Rate Pre-Dialysis 78 BPM Temperature Pre-Dialysis 97.9 degF December 29, 2024 Sequential Treatment [id number]:44:29.000Z 5401-67-42Q19:46:59.000Z BP Sitting (Pre-Dialysis) 118/78 mmHg BP Sitting (Post-Dialysis) 132/91 mmHg Concurrent Access: falseAV Graft Upper Arm (Right) Arterial BP Standing (Pre-Dialysis) 108/72 mmHg Sitting Heart Rate Post-Dialysis 80 BPM Sitting Heart Rate Pre-Dialysis 94 BPM Temperatu re Post-Dialysis 98 degF Standing Heart Rate Pre-Dialysis 99 BPM Temperature Pre-Dialysis 97.5 degF December 27, 2024 In-Center Hemodialysis Treatment [id number]:30:21.000Z [id number]:21:21.000Z BP Sitting (Pre-Dialysis) 150/95 mmHg BP Sitting (Post-Dialysis) 122/109 mmHg Concurrent Access: falseAV Graft Upper Arm (Right) Arterial BP Standing (Pre-Dialysis) 134/75 mmHg BP Standing (P ost-Dialysis) 141/86 mmHg Sitting Heart Rate Pre-Dialysis 100 BPM Sitting Heart Rate Post-Dialysis 97 BPM Standing Heart Rate Pre-Dialysis 100 BPM Standing Heart Rate Post-Dialysis 98 BPM Temperature Pre-Dialysis 98 degF Temperature Post -Dialysis 98 degF December 25, 2024 In-Center Hemodialysis Treatment [id number]:32:59.000Z [id number]:19:29.000Z BP Sitting (Pre-Dialysis) 142/98 mmHg BP Sitting (Post-Dialysis) 149/98 mmHg Concurrent Access: falseAV Graft Upper Arm (Right) Arterial BP Standing (Pre-Dialysis) 145/100 mmHg Sitti ng Heart Rate Post-Dialysis 95 BPM Sitting Heart Rate Pre-Dialysis 55 BPM Temperatu re Post-Dialysis 98 degF Standing Heart Rate Pre-Dialysis 55 BPM Temperature Pre-Dialysis 98 degF December 23, 2024 In-Center Hemodialysis Treatment [id number]:37:45.000Z 9641-49-78H17:29:36.000Z BP Sitting (Pre-Dialysis) 108/74 mmHg BP Sitting (Post-Dialysis) 140/87 mmHg Concurrent Access: falseAV Graft Upper Arm (Right) Arterial BP Standing (Pre-Dialysis) 110/60 mmHg BP Standing (P ost-Dialysis) 121/77 mmHg Sitting Heart Rate Pre-Dialysis 105 BPM Sitting Heart Rate Post-Dialysis 70 BPM Standing Heart Rate Pre-Dialysis 105 BPM Standing Heart Rate Post-Dialysis 87 BPM Temperature Pre-Dialysis 97.8 degF Temperature Post -Dialysis 98 degF December 20, 2024 In-Center Hemodialysis Treatment [id number]:45:12.000Z [id number]:03:23.000Z BP Sitting (Pre-Dialysis) 129/95 mmHg BP Sitting (Post-Dialysis) 134/89 mmHg Concurrent Access: falseAV Graft Upper Arm (Right) Arterial BP Standing (Pre-Dialysis) 132/88 mmHg BP Standing (P ost-Dialysis) 120/81 mmHg Sitting Heart Rate Pre-Dialysis 80 BPM Sitting Heart Rate Post-Dialysis 77 BPM Standing Heart Rate Pre-Dialysis 100 BPM Standing Heart Rate Post-Dialysis 81 BPM Temperature Pre-Dialysis 97.2 degF Temperature Post -Dialysis 97.5 degF December 18, 2024 In-Center Hemodialysis Treatment [id number]:10:00.000Z [id number]:45:31.000Z BP Sitting (Pre-Dialysis) 137/89 mmHg BP Sitting (Post-Dialysis) 132/82 mmHg Concurrent Access: falseAV Graft Upper Arm (Right) Arterial BP Standing (Pre-Dialysis) 132/97 mmHg Sitting Heart Rate Post-Dialysis 85 BPM Sitting Heart Rate Pre-Dialysis 105 BPM Temperatu re Post-Dialysis 98 degF Standing Heart Rate Pre-Dialysis 93 BPM Temperature Pre-Dialysis 97.9 degF December 16, 2024 In-Center Hemodialysis Treatment [id number]:42:19.000Z [id number]:11:49.000Z BP Sitting (Pre-Dialysis) 131/95 mmHg BP Sitting (Post-Dialysis) 148/100 mmHg Concurrent Access: falseAV Graft Upper Arm (Right) Arterial Sitting Heart Rate Pre-Dialysis 104 BPM Sitting H eart Rate Post-Dialysis 77 BPM Temperature Pre-Dialysis 97 degF Temperature Post -Dialysis 98.2 degF December 13, 2024 In-Center Hemodialysis Treatment [id number]:44:10.000Z [id number]:36:31.000Z BP Sitting (Pre-Dialysis) 144/104 mmHg BP Sitting (Post-Dialysis) 144/104 mmHg Concurrent Access: falseAV Graft Upper Arm (Right) Arterial Sitting Heart Rate Pre-Dialysis 113 BPM BP Standing (Post-Dialysis) 163/91 mmHg Temperature Pre-Dialysis 96.6 degF Sitting Heart Ra te Post-Dialysis 82 BPM Standing Heart Rate Post-Cuca lysis 81 BPM Temperature Post-Dialysis 98 degF December 11, 2024 In-Center Hemodialysis Treatment [id number]:36:19.000Z [id number]:29:39.000Z BP Sitting (Pre-Dialysis) 127/84 mmHg BP Sitting (Post-Dialysis) 100/50 mmHg Concurrent Access: falseAV Graft Upper Arm (Right) Arterial Sitting Heart Rate Pre-Dialysis 102 BPM Sitting H eart Rate Post-Dialysis 101 BPM Temperature Pre-Dialysis 98 degF Temperature Post -Dialysis 98.2 degF December 09, 2024 In-Center Hemodialysis Treatment [id number]:31:03.000Z [id number]:19:34.000Z BP Sitting (Pre-Dialysis) 135/91 mmHg BP Sitting (Post-Dialysis) 137/93 mmHg Concurrent Access: falseAV Graft Upper Arm (Right) Arterial Sitting Heart Rate Pre-Dialysis 105 BPM Sitting H eart Rate Post-Dialysis 90 BPM Temperature Pre-Dialysis 97.8 degF Temperature Post -Dialysis 98 degF December 06, 2024 In-Center Hemodialysis Treatment [id number]:27:54.000Z [id number]:13:24.000Z BP Sitting (Pre-Dialysis) 122/74 mmHg BP Sitting (Post-Dialysis) 116/64 mmHg Concurrent Access: falseAV Graft Upper Arm (Right) Arterial BP Standing (Pre-Dialysis) 116/77 mmHg BP Standing (P ost-Dialysis) 113/64 mmHg Sitting Heart Rate Pre-Dialysis 85 BPM Sitting Heart Rate Post-Dialysis 78 BPM Standing Heart Rate Pre-Dialysis 102 BPM Standing Heart Rate Post-Dialysis 58 BPM Temperature Pre-Dialysis 98 degF Temperature Post -Dialysis 98 degF December 04, 2024 In-Center Hemodialysis Treatment [id number]:22:05.000Z [id number]:16:05.000Z BP Sitting (Pre-Dialysis) 120/78 mmHg BP Sitting (Post-Dialysis) 119/79 mmHg Concurrent Access: falseAV Graft Upper Arm (Right) Arterial BP Standing (Pre-Dialysis) 149/60 mmHg BP Standing (P ost-Dialysis) 113/67 mmHg Sitting Heart Rate Pre-Dialysis 91 BPM Sitting Heart Rate Post-Dialysis 100 BPM Standing Heart Rate Pre-Dialysis 103 BPM Standing Heart Rate Post-Dialysis 99 BPM Temperature Pre-Dialysis 97.1 degF Temperature Post -Dialysis 98 degF December 02, 2024 In-Center Hemodialysis Treatment [id number]:06:11.000Z [id number]:02:11.000Z BP Sitting (Pre-Dialysis) 136/92 mmHg BP Sitting (Post-Dialysis) 147/95 mmHg Concurrent Access: falseAV Graft Upper Arm (Right) Arterial Sitting Heart Rate Pre-Dialysis 102 BPM BP Standing (Post-Dialysis) 122/80 mmHg Temperature Pre-Dialysis 97.6 degF Sitting Heart Ra te Post-Dialysis 50 BPM Standing Heart Rate Post-Cuca lysis 90 BPM Temperature Post-Dialysis 98 degF November 29, 2024 In-Center Hemodialysis Treatment [id number]:31:43.000Z [id number]:24:13.000Z BP Sitting (Pre-Dialysis) 121/96 mmHg BP Sitting (Post-Dialysis) 134/84 mmHg Concurrent Access: falseAV Graft Upper Arm (Right) Arterial BP Standing (Pre-Dialysis) 148/97 mmHg BP Standing (P ost-Dialysis) 123/76 mmHg Sitting Heart Rate Pre-Dialysis 95 BPM Sitting Heart Rate Post-Dialysis 88 BPM Standing Heart Rate Pre-Dialysis 103 BPM Standing Heart Rate Post-Dialysis 130 BPM Temperature Pre-Dialysis 96.7 degF Temperature Post -Dialysis 98 degF November 27, 2024 In-Center Hemodialysis Treatment [id number]:20:30.000Z [id number]:11:31.000Z BP Sitting (Pre-Dialysis) 117/77 mmHg BP Sitting (Post-Dialysis) 134/81 mmHg Concurrent Access: falseAV Graft Upper Arm (Right) Arterial BP Standing (Pre-Dialysis) 127/82 mmHg BP Standing (P ost-Dialysis) 136/72 mmHg Sitting Heart Rate Pre-Dialysis 100 BPM Sitting Heart Rate Post-Dialysis 108 BPM Standing Heart Rate Pre-Dialysis 101 BPM Standing Heart Rate Post-Dialysis 80 BPM Temperature Pre-Dialysis 97 degF Temperature Post -Dialysis 98 degF November 25, 2024 In-Center Hemodialysis Treatment [id number]:52:01.000Z [id number]:47:02.000Z BP Sitting (Pre-Dialysis) 115/64 mmHg BP Sitting (Post-Dialysis) 136/89 mmHg Concurrent Access: falseAV Graft Upper Arm (Right) Arterial BP Standing (Pre-Dialysis) 120/70 mmHg Sitti ng Heart Rate Post-Dialysis 120 BPM Sitting Heart Rate Pre-Dialysis 77 BPM Temperatu re Post-Dialysis 97.7 degF Standing Heart Rate Pre-Dialysis 80 BPM Temperature Pre-Dialysis 97.7 degF November 22, 2024 In-Center Hemodialysis Treatment [id number]:41:06.000Z [id number]:46:18.000Z BP Sitting (Pre-Dialysis) 122/81 mmHg BP Sitting (Post-Dialysis) 138/80 mmHg Concurrent Access: falseAV Graft Upper Arm (Right) Arterial BP Standing (Pre-Dialysis) 132/92 mmHg BP Standing (P ost-Dialysis) 140/86 mmHg Sitting Heart Rate Pre-Dialysis 100 BPM Sitting Heart Rate Post-Dialysis 97 BPM Standing Heart Rate Pre-Dialysis 101 BPM Standing Heart Rate Post-Dialysis 111 BPM Temperature Pre-Dialysis 97.5 degF Temperature Post -Dialysis 98 degF November 20, 2024 In-Center Hemodialysis Treatment [id number]:43:10.000Z [id number]:33:36.000Z BP Sitting (Pre-Dialysis) 137/91 mmHg BP Sitting (Post-Dialysis) 125/92 mmHg Concurrent Access: falseAV Graft Upper Arm (Right) Arterial BP Standing (Pre-Dialysis) 132/92 mmHg BP Standing (P ost-Dialysis) 125/63 mmHg Sitting Heart Rate Pre-Dialysis 95 BPM Sitting Heart Rate Post-Dialysis 60 BPM Standing Heart Rate Pre-Dialysis 102 BPM Standing Heart Rate Post-Dialysis 66 BPM Temperature Pre-Dialysis 97.8 degF Temperature Post -Dialysis 98.1 degF November 18, 2024 In-Center Hemodialysis Treatment [id number]:29:05.000Z [id number]:22:06.000Z BP Sitting (Pre-Dialysis) 148/95 mmHg BP Sitting (Post-Dialysis) 140/86 mmHg Concurrent Access: falseAV Graft Upper Arm (Right) Arterial BP Standing (Pre-Dialysis) 149/105 mmHg BP Standing (P ost-Dialysis) 132/83 mmHg Sitting Heart Rate Pre-Dialysis 69 BPM Sitting Heart Rate Post-Dialysis 86 BPM Standing Heart Rate Pre-Dialysis 109 BPM Standing Heart Rate Post-Dialysis 81 BPM Temperature Pre-Dialysis 97 degF Temperature Post -Dialysis 98 degF November 15, 2024 In-Center Hemodialysis Treatment [id number]:39:50.000Z [id number]:27:20.000Z BP Sitting (Pre-Dialysis) 132/93 mmHg BP Sitting (Post-Dialysis) 145/46 mmHg Concurrent Access: falseAV Graft Upper Arm (Right) Arterial BP Standing (Pre-Dialysis) 135/54 mmHg BP Standing (P ost-Dialysis) 121/84 mmHg Sitting Heart Rate Pre-Dialysis 93 BPM Sitting Heart Rate Post-Dialysis 70 BPM Standing Heart Rate Pre-Dialysis 107 BPM Standing Heart Rate Post-Dialysis 89 BPM Temperature Pre-Dialysis 97.3 degF Temperature Post -Dialysis 97.2 degF November 13, 2024 In-Center Hemodialysis Treatment [id number]:41:19.000Z [id number]:29:20.000Z BP Sitting (Pre-Dialysis) 123/85 mmHg BP Sitting (Post-Dialysis) 138/99 mmHg Concurrent Access: falseAV Graft Upper Arm (Right) Arterial Sitting Heart Rate Pre-Dialysis 82 BPM Sitting H eart Rate Post-Dialysis 87 BPM Temperature Pre-Dialysis 97 degF Temperature Post -Dialysis 98 degF November 11, 2024 In-Center Hemodialysis Treatment [id number]:26:17.000Z [id number]:16:37.000Z BP Sitting (Pre-Dialysis) 129/92 mmHg BP Sitting (Post-Dialysis) 150/96 mmHg Concurrent Access: falseAV Graft Upper Arm (Right) Arterial BP Standing (Pre-Dialysis) 140/89 mmHg BP Standing (P ost-Dialysis) 130/93 mmHg Sitting Heart Rate Pre-Dialysis 100 BPM Sitting Heart Rate Post-Dialysis 99 BPM Standing Heart Rate Pre-Dialysis 87 BPM Standing Heart Rate Post-Dialysis 91 BPM Temperature Pre-Dialysis 97.3 degF Temperature Post -Dialysis 98 degF November 08, 2024 In-Center Hemodialysis Treatment [id number]:34:09.000Z [id number]:27:49.000Z BP Sitting (Pre-Dialysis) 134/91 mmHg BP Sitting (Post-Dialysis) 130/92 mmHg Concurrent Access: falseAV Graft Upper Arm (Right) Arterial BP Standing (Pre-Dialysis) 136/97 mmHg Sitting Heart Rate Post-Dialysis 82 BPM Sitting Heart Rate Pre-Dialysis 110 BPM Temperatu re Post-Dialysis 98 degF Standing Heart Rate Pre-Dialysis 95 BPM Temperature Pre-Dialysis 97.9 degF November 06, 2024 In-Center Hemodialysis Treatment 5523-10-05P15:31:05.000Z [id number]:24:36.000Z BP Sitting (Pre-Dialysis) 118/81 mmHg BP Sitting (Post-Dialysis) 127/63 mmHg Concurrent Access: falseAV Graft Upper Arm (Right) Arterial BP Standing (Pre-Dialysis) 122/85 mmHg Sitti ng Heart Rate Post-Dialysis 80 BPM Sitting Heart Rate Pre-Dialysis 82 BPM Temperatu re Post-Dialysis 97.3 degF Standing Heart Rate Pre-Dialysis 89 BPM Temperature Pre-Dialysis 97.2 degF October 30, 2024 In-Center Hemodialysis Treatment [id number]:48:15.000Z 2004-88-36U67:35:00.000Z BP Sitting (Pre-Dialysis) 138/93 mmHg BP Sitting (Post-Dialysis) 147/102 mmHg Concurrent Access: falseAV Graft Upper Arm (Right) Arterial BP Standing (Pre-Dialysis) 137/99 mmHg BP Standing (P ost-Dialysis) 138/90 mmHg Sitting Heart Rate Pre-Dialysis 80 BPM Sitting Heart Rate Post-Dialysis 100 BPM Standing Heart Rate Pre-Dialysis 107 BPM Standing Heart Rate Post-Dialysis 102 BPM Temperature Pre-Dialysis 97.3 degF Temperature Post -Dialysis 97.9 degF October 14, 2024 In-Center Hemodialysis Treatment 1999-34-07W19:31:53.000Z [id number]:12:09.000Z BP Sitting (Pre-Dialysis) 149/99 mmHg BP Sitting (Post-Dialysis) 151/102 mmHg Concurrent Access: falseAV Graft Upper Arm (Right) Arterial BP Standing (Pre-Dialysis) 148/100 mmHg BP Standing (P ost-Dialysis) 132/93 mmHg Sitting Heart Rate Pre-Dialysis 105 BPM Sitting Heart Rate Post-Dialysis 100 BPM Standing Heart Rate Pre-Dialysis 106 BPM Standing Heart Rate Post-Dialysis 114 BPM Temperature Pre-Dialysis 97 degF Temperature Post -Dialysis 98 degF October 11, 2024 In-Center Hemodialysis Treatment [id number]:11:00.000Z 3417-49-91W77:02:00.000Z BP Sitting (Pre-Dialysis) 146/83 mmHg BP Sitting (Post-Dialysis) 148/98 mmHg Concurrent Access: falseAV Graft Upper Arm (Right) Arterial BP Standing (Pre-Dialysis) 146/83 mmHg BP Standing (P ost-Dialysis) 138/88 mmHg Sitting Heart Rate Pre-Dialysis 105 BPM Sitting Heart Rate Post-Dialysis 108 BPM Standing Heart Rate Pre-Dialysis 105 BPM Standing Heart Rate Post-Dialysis 80 BPM October 09, 2024 In-Center Hemodialysis Treatment [id number]:23:11.000Z [id number]:30:46.000Z BP Sitting (Pre-Dialysis) 126/82 mmHg BP Sitting (Post-Dialysis) 128/82 mmHg Concurrent Access: falseAV Graft Upper Arm (Right) Arterial BP Standing (Pre-Dialysis) 123/85 mmHg BP Standing (P ost-Dialysis) 133/93 mmHg Sitting Heart Rate Pre-Dialysis 102 BPM Sitting Heart Rate Post-Dialysis 92 BPM Standing Heart Rate Pre-Dialysis 95 BPM Standing Heart Rate Post-Dialysis 98 BPM Temperature Pre-Dialysis 98 degF Temperature Post -Dialysis 98 degF October 07, 2024 In-Center Hemodialysis Treatment [id number]:27:03.000Z [id number]:16:53.000Z BP Sitting (Pre-Dialysis) 129/87 mmHg BP Sitting (Post-Dialysis) 149/98 mmHg Concurrent Access: falseAV Graft Upper Arm (Right) Arterial Sitting Heart Rate Pre-Dialysis 104 BPM BP Standi ng (Post-Dialysis) 135/88 mmHg Temperature Pre-Dialysis 98 degF Sitting Heart Ra te Post-Dialysis 87 BPM Standing Heart Rate Post-Cuca lysis 97 BPM Temperature Post-Dialysis 97 .3 degF October 04, 2024 In-Center Hemodialysis Treatment [id number]:35:51.000Z [id number]:25:52.000Z BP Sitting (Pre-Dialysis) 134/94 mmHg BP Sitting (Post-Dialysis) 139/89 mmHg Concurrent Access: falseAV Graft Upper Arm (Right) Arterial BP Standing (Pre-Dialysis) 128/95 mmHg Sitting Heart Rate Post-Dialysis 82 BPM Sitting Heart Rate Pre-Dialysis 90 BPM Standing Heart Rate Pre-Dialysis 94 BPM Temperature Pre-Dialysis 97 degF September 20, 2024 In-Center Hemodialysis Treatment [id number]:02:43.000Z 4292-51-15M13:54:04.000Z BP Sitting (Pre-Dialysis) 155/93 mmHg BP Sitting (Post-Dialysis) 128/92 mmHg Concurrent Access: falseAV Graft Upper Arm (Right) Arterial Sitting Heart Rate Pre-Dialysis 91 BPM BP Standing (Post-Dialysis) 141/92 mmHg Temperature Pre-Dialysis 96.9 degF Sitting Heart Ra te Post-Dialysis 95 BPM Standing Heart Rate Post-Cuca lysis 74 BPM Temperature Post-Dialysis 98 degF September 18, 2024 In-Center Hemodialysis Treatment [id number]:05:44.000Z 3922-28-85M44:59:26.000Z BP Sitting (Pre-Dialysis) 140/101 mmHg BP Sitting (Post-Dialysis) 136/84 mmHg Concurrent Access: falseAV Graft Upper Arm (Right) Arterial Sitting Heart Rate Pre-Dialysis 108 BPM Sitting H eart Rate Post-Dialysis 84 BPM Temperature Pre-Dialysis 97 degF Temperature Post -Dialysis 98 degF September 16, 2024 In-Center Hemodialysis Treatment [id number]:30:54.000Z 9176-05-55C22:23:55.000Z BP Sitting (Pre-Dialysis) 133/95 mmHg BP Sitting (Post-Dialysis) 145/93 mmHg Concurrent Access: falseAV Graft Upper Arm (Right) Arterial BP Standing (Pre-Dialysis) 142/95 mmHg BP Standing (P ost-Dialysis) 135/97 mmHg Sitting Heart Rate Pre-Dialysis 102 BPM Sitting Heart Rate Post-Dialysis 90 BPM Standing Heart Rate Pre-Dialysis 98 BPM Standing Heart Rate Post-Dialysis 94 BPM Temperature Pre-Dialysis 97 degF Temperature Post -Dialysis 97.8 degF September 13, 2024 In-Center Hemodialysis Treatment [id number]:10:55.000Z 5489-96-90I94:02:16.000Z BP Sitting (Pre-Dialysis) 133/110 mmHg BP Sitting (Post-Dialysis) 105/91 mmHg Concurrent Access: falseAV Graft Upper Arm (Right) Arterial BP Standing (Pre-Dialysis) 134/82 mmHg BP Standing (P ost-Dialysis) 134/80 mmHg Sitting Heart Rate Pre-Dialysis 120 BPM Sitting Heart Rate Post-Dialysis 107 BPM Standing Heart Rate Pre-Dialysis 117 BPM Standing Heart Rate Post-Dialysis 108 BPM Temperature Pre-Dialysis 97 degF Temperature Post -Dialysis 98 degF September 11, 2024 In-Center Hemodialysis Treatment [id number]:36:01.000Z [id number]:58:57.000Z BP Sitting (Pre-Dialysis) 142/91 mmHg BP Sitting (Post-Dialysis) 135/77 mmHg Concurrent Access: falseAV Graft Upper Arm (Right) Arterial BP Standing (Pre-Dialysis) 148/89 mmHg BP Standing (P ost-Dialysis) 137/86 mmHg Sitting Heart Rate Pre-Dialysis 50 BPM Sitting Heart Rate Post-Dialysis 107 BPM Standing Heart Rate Pre-Dialysis 79 BPM Standing Heart Rate Post-Dialysis 99 BPM Temperature Pre-Dialysis 97.2 degF Temperature Post -Dialysis 98 degF September 09, 2024 In-Center Hemodialysis Treatment [id number]:50:48.000Z [id number]:43:43.000Z BP Sitting (Pre-Dialysis) 101/78 mmHg BP Sitting (Post-Dialysis) 130/80 mmHg Concurrent Access: falseAV Graft Upper Arm (Right) Arterial BP Standing (Pre-Dialysis) 135/94 mmHg BP Standing (P ost-Dialysis) 122/80 mmHg Sitting Heart Rate Pre-Dialysis 104 BPM Sitting Heart Rate Post-Dialysis 92 BPM Standing Heart Rate Pre-Dialysis 106 BPM Standing Heart Rate Post-Dialysis 93 BPM Temperature Pre-Dialysis 97.2 degF Temperature Post -Dialysis 98 degF September 06, 2024 In-Center Hemodialysis Treatment [id number]:34:39.000Z [id number]:11:39.000Z BP Sitting (Pre-Dialysis) 135/91 mmHg BP Sitting (Post-Dialysis) 129/83 mmHg Concurrent Access: falseAV Graft Upper Arm (Right) Arterial BP Standing (Pre-Dialysis) 120/84 mmHg BP Standing (P ost-Dialysis) 123/79 mmHg Sitting Heart Rate Pre-Dialysis 107 BPM Sitting Heart Rate Post-Dialysis 98 BPM Standing Heart Rate Pre-Dialysis 108 BPM Standing Heart Rate Post-Dialysis 91 BPM Temperature Pre-Dialysis 97.1 degF Temperature Post -Dialysis 98 degF September 04, 2024 In-Center Hemodialysis Treatment [id number]:50:57.000Z 7857-64-72R60:40:03.000Z BP Sitting (Pre-Dialysis) 130/95 mmHg BP Sitting (Post-Dialysis) 122/70 mmHg Concurrent Access: falseAV Graft Upper Arm (Right) Arterial BP Standing (Pre-Dialysis) 135/95 mmHg BP Standing (P ost-Dialysis) 138/72 mmHg Sitting Heart Rate Pre-Dialysis 96 BPM Sitting Heart Rate Post-Dialysis 99 BPM Standing Heart Rate Pre-Dialysis 103 BPM Standing Heart Rate Post-Dialysis 80 BPM Temperature Pre-Dialysis 97.5 degF Temperature Post -Dialysis 98 degF September 02, 2024 In-Center Hemodialysis Treatment [id number]:28:43.000Z 6387-95-44M81:21:13.000Z BP Sitting (Pre-Dialysis) 133/88 mmHg BP Sitting (Post-Dialysis) 139/89 mmHg Concurrent Access: falseAV Graft Upper Arm (Right) Arterial BP Standing (Pre-Dialysis) 138/85 mmHg Sitti ng Heart Rate Post-Dialysis 89 BPM Sitting Heart Rate Pre-Dialysis 110 BPM Temperatu re Post-Dialysis 97.5 degF Standing Heart Rate Pre-Dialysis 111 BPM Temperature Pre-Dialysis 97.5 degF August 30, 2024 In-Center Hemodialysis Treatment 6945-65-01K67:29:26.000Z [id number]:19:57.000Z BP Sitting (Pre-Dialysis) 136/93 mmHg BP Sitting (Post-Dialysis) 126/98 mmHg Concurrent Access: falseAV Graft Upper Arm (Right) Arterial BP Standing (Pre-Dialysis) 155/84 mmHg BP Standing (P ost-Dialysis) 109/74 mmHg Sitting Heart Rate Pre-Dialysis 44 BPM Sitting Heart Rate Post-Dialysis 50 BPM Standing Heart Rate Pre-Dialysis 58 BPM Standing Heart Rate Post-Dialysis 91 BPM Temperature Pre-Dialysis 98 degF August 28, 2024 In-Center Hemodialysis Treatment [id number]:21:02.000Z 4768-20-90N45:10:32.000Z BP Sitting (Pre-Dialysis) 121/82 mmHg BP Sitting (Post-Dialysis) 146/98 mmHg Concurrent Access: falseAV Graft Upper Arm (Right) Arterial BP Standing (Pre-Dialysis) 123/95 mmHg BP Standing (P ost-Dialysis) 136/80 mmHg Sitting Heart Rate Pre-Dialysis 100 BPM Sitting Heart Rate Post-Dialysis 80 BPM Standing Heart Rate Pre-Dialysis 108 BPM Standing Heart Rate Post-Dialysis 92 BPM Temperature Pre-Dialysis 98 degF Temperature Post -Dialysis 97.5 degF August 26, 2024 In-Center Hemodialysis Treatment 2674-09-35Y85:33:27.000Z 2592-31-74T24:24:28.000Z BP Sitting (Pre-Dialysis) 141/91 mmHg BP Sitting (Post-Dialysis) 147/97 mmHg Concurrent Access: falseAV Graft Upper Arm (Right) Arterial BP Standing (Pre-Dialysis) 151/100 mmHg BP Standing (P ost-Dialysis) 134/76 mmHg Sitting Heart Rate Pre-Dialysis 102 BPM Sitting Heart Rate Post-Dialysis 98 BPM Standing Heart Rate Pre-Dialysis 110 BPM Standing Heart Rate Post-Dialysis 105 BPM Temperature Pre-Dialysis 99.7 degF Temperature Post -Dialysis 98 degF August 23, 2024 In-Center Hemodialysis Treatment 0148-25-19Z20:21:08.000Z 6105-65-06L74:04:04.000Z BP Sitting (Pre-Dialysis) 140/99 mmHg BP Sitting (Post-Dialysis) 139/84 mmHg Concurrent Access: falseAV Graft Upper Arm (Right) Arterial BP Standing (Pre-Dialysis) 130/99 mmHg BP Standing (P ost-Dialysis) 117/82 mmHg Sitting Heart Rate Pre-Dialysis 100 BPM Sitting Heart Rate Post-Dialysis 97 BPM Standing Heart Rate Pre-Dialysis 99 BPM Standing Heart Rate Post-Dialysis 100 BPM Temperature Pre-Dialysis 98 degF Temperature Post -Dialysis 98 degF August 21, 2024 In-Center Hemodialysis Treatment [id number]:38:50.000Z 8308-59-55E37:29:20.000Z BP Sitting (Pre-Dialysis) 138/89 mmHg BP Sitting (Post-Dialysis) 144/70 mmHg Concurrent Access: falseAV Graft Upper Arm (Right) Arterial BP Standing (Pre-Dialysis) 123/79 mmHg BP Standing (P ost-Dialysis) 120/82 mmHg Sitting Heart Rate Pre-Dialysis 103 BPM Sitting Heart Rate Post-Dialysis 80 BPM Standing Heart Rate Pre-Dialysis 92 BPM Standing Heart Rate Post-Dialysis 100 BPM Temperature Pre-Dialysis 97 degF Temperature Post -Dialysis 98 degF August 19, 2024 In-Center Hemodialysis Treatment 6741-72-50P48:03:46.000Z 0428-69-08S86:52:46.000Z BP Sitting (Pre-Dialysis) 138/92 mmHg BP Sitting (Post-Dialysis) 131/89 mmHg Concurrent Access: falseAV Graft Upper Arm (Right) Arterial BP Standing (Pre-Dialysis) 151/102 mmHg Sitti ng Heart Rate Post-Dialysis 97 BPM Sitting Heart Rate Pre-Dialysis 98 BPM Temperatu re Post-Dialysis 97.3 degF Standing Heart Rate Pre-Dialysis 80 BPM Temperature Pre-Dialysis 98.5 degF August 16, 2024 In-Center Hemodialysis Treatment 5229-26-01D72:28:25.000Z 5787-78-12I05:19:00.000Z BP Sitting (Pre-Dialysis) 129/79 mmHg BP Sitting (Post-Dialysis) 104/73 mmHg Concurrent Access: falseAV Graft Upper Arm (Right) Arterial BP Standing (Pre-Dialysis) 129/77 mmHg Sitting Heart Rate Post-Dialysis 89 BPM Sitting Heart Rate Pre-Dialysis 87 BPM Temperatu re Post-Dialysis 98 degF Standing Heart Rate Pre-Dialysis 97 BPM Temperature Pre-Dialysis 97.2 degF August 14, 2024 In-Center Hemodialysis Treatment [id number]:41:39.000Z 4040-86-81Z53:30:49.000Z BP Sitting (Pre-Dialysis) 147/100 mmHg BP Sitting (Post-Dialysis) 137/88 mmHg Concurrent Access: falseAV Graft Upper Arm (Right) Arterial BP Standing (Pre-Dialysis) 147/98 mmHg Sitti ng Heart Rate Post-Dialysis 94 BPM Sitting Heart Rate Pre-Dialysis 90 BPM Temperatu re Post-Dialysis 97.8 degF Standing Heart Rate Pre-Dialysis 110 BPM Temperature Pre-Dialysis 97.3 degF August 12, 2024 In-Center Hemodialysis Treatment 5074-48-00L81:11:53.000Z 8679-47-45T09:00:03.000Z BP Sitting (Pre-Dialysis) 129/76 mmHg BP Sitting (Post-Dialysis) 121/79 mmHg Concurrent Access: falseAV Graft Upper Arm (Right) Arterial BP Standing (Pre-Dialysis) 134/88 mmHg BP Standing (P ost-Dialysis) 130/70 mmHg Sitting Heart Rate Pre-Dialysis 104 BPM Sitting Heart Rate Post-Dialysis 91 BPM Standing Heart Rate Pre-Dialysis 117 BPM Standing Heart Rate Post-Dialysis 80 BPM Temperature Pre-Dialysis 97.2 degF Temperature Post -Dialysis 98 degF August 09, 2024 In-Center Hemodialysis Treatment 8881-50-30V10:50:16.000Z 1224-92-35N34:09:02.000Z BP Sitting (Pre-Dialysis) 130/83 mmHg BP Sitting (Post-Dialysis) 107/61 mmHg Concurrent Access: falseAV Graft Upper Arm (Right) Arterial BP Standing (Pre-Dialysis) 148/96 mmHg BP Standing (P ost-Dialysis) 127/73 mmHg Sitting Heart Rate Pre-Dialysis 99 BPM Sitting Heart Rate Post-Dialysis 89 BPM Standing Heart Rate Pre-Dialysis 100 BPM Standing Heart Rate Post-Dialysis 60 BPM Temperature Pre-Dialysis 97.2 degF Temperature Post -Dialysis 98 degF August 07, 2024 In-Center Hemodialysis Treatment [id number]:21:00.000Z 6822-42-59B25:23:50.000Z BP Sitting (Pre-Dialysis) 133/82 mmHg BP Sitting (Post-Dialysis) 121/80 mmHg Concurrent Access: falseAV Graft Upper Arm (Right) Arterial BP Standing (Pre-Dialysis) 145/95 mmHg BP Standing (P ost-Dialysis) 121/80 mmHg Sitting Heart Rate Pre-Dialysis 106 BPM Sitting Heart Rate Post-Dialysis 91 BPM Standing Heart Rate Pre-Dialysis 106 BPM Standing Heart Rate Post-Dialysis 90 BPM Temperature Pre-Dialysis 97.5 degF Temperature Post -Dialysis 98 degF August 02, 2024 In-Center Hemodialysis Treatment 4149-25-51G60:36:00.000Z 1600-77-80G44:27:53.000Z BP Sitting (Pre-Dialysis) 138/91 mmHg BP Sitting (Post-Dialysis) 139/88 mmHg Concurrent Access: falseAV Graft Upper Arm (Right) Arterial BP Standing (Pre-Dialysis) 145/96 mmHg BP Standing (P ost-Dialysis) 122/81 mmHg Sitting Heart Rate Pre-Dialysis 77 BPM Sitting Heart Rate Post-Dialysis 90 BPM Standing Heart Rate Pre-Dialysis 114 BPM Standing Heart Rate Post-Dialysis 97 BPM Temperature Pre-Dialysis 98 degF Temperature Post -Dialysis 97.6 degF July 31, 2024 In-Center Hemodialysis Treatment 3187-49-08P18:44:39.000Z 7844-85-49V65:33:15.000Z BP Sitting (Pre-Dialysis) 140/86 mmHg BP Sitting (Post-Dialysis) 119/68 mmHg Concurrent Access: falseAV Graft Upper Arm (Right) Arterial BP Standing (Pre-Dialysis) 146/96 mmHg Sitting Heart Rate Post-Dialysis 88 BPM Sitting Heart Rate Pre-Dialysis 108 BPM Temperatu re Post-Dialysis 98 degF Standing Heart Rate Pre-Dialysis 106 BPM Temperature Pre-Dialysis 97.9 degF July 29, 2024 In-Center Hemodialysis Treatment 9113-52-71H68:12:36.000Z 4235-66-27Z36:04:36.000Z BP Sitting (Pre-Dialysis) 140/88 mmHg BP Sitting (Post-Dialysis) 106/79 mmHg Concurrent Access: falseAV Graft Upper Arm (Right) Arterial BP Standing (Pre-Dialysis) 136/87 mmHg BP Standing (P ost-Dialysis) 122/77 mmHg Sitting Heart Rate Pre-Dialysis 107 BPM Sitting Heart Rate Post-Dialysis 120 BPM Standing Heart Rate Pre-Dialysis 145 BPM Standing Heart Rate Post-Dialysis 90 BPM Temperature Pre-Dialysis 97.6 degF Temperature Post -Dialysis 98 degF July 26, 2024 In-Center Hemodialysis Treatment 7361-24-27K65:38:11.000Z 6036-40-45O06:26:52.000Z BP Sitting (Pre-Dialysis) 121/84 mmHg BP Sitting (Post-Dialysis) 117/97 mmHg Concurrent Access: falseAV Graft Upper Arm (Right) Arterial BP Standing (Pre-Dialysis) 135/85 mmHg Sitting Heart Rate Post-Dialysis 90 BPM Sitting Heart Rate Pre-Dialysis 89 BPM Temperatu re Post-Dialysis 98 degF Standing Heart Rate Pre-Dialysis 160 BPM Temperature Pre-Dialysis 98 degF July 24, 2024 In-Center Hemodialysis Treatment 1033-43-24X77:37:41.000Z 7722-62-56F96:28:11.000Z BP Sitting (Pre-Dialysis) 152/98 mmHg BP Sitting (Post-Dialysis) 137/97 mmHg Concurrent Access: falseAV Graft Upper Arm (Right) Arterial BP Standing (Pre-Dialysis) 167/102 mmHg Sitti ng Heart Rate Post-Dialysis 100 BPM Sitting Heart Rate Pre-Dialysis 113 BPM Temperatu re Post-Dialysis 98 degF Standing Heart Rate Pre-Dialysis 120 BPM Temperature Pre-Dialysis 97.9 degF July 22, 2024 In-Center Hemodialysis Treatment 0518-77-41O62:34:39.000Z 1362-83-36A75:24:59.000Z BP Sitting (Pre-Dialysis) 162/109 mmHg BP Sitting (Post-Dialysis) 130/77 mmHg Concurrent Access: falseAV Graft Upper Arm (Right) Arterial BP Standing (Pre-Dialysis) 148/95 mmHg Sitting Heart Rate Post-Dialysis 90 BPM Sitting Heart Rate Pre-Dialysis 114 BPM Standing Heart Rate Pre-Dialysis 114 BPM Temperature Pre-Dialysis 97.9 degF July 19, 2024 In-Center Hemodialysis Treatment 3496-09-03X62:36:33.000Z 3746-12-95B73:28:34.000Z BP Sitting (Pre-Dialysis) 139/90 mmHg BP Sitting (Post-Dialysis) 131/96 mmHg Concurrent Access: falseAV Graft Upper Arm (Right) Arterial BP Standing (Pre-Dialysis) 146/97 mmHg Sitti ng Heart Rate Post-Dialysis 93 BPM Sitting Heart Rate Pre-Dialysis 46 BPM Temperatu re Post-Dialysis 97.2 degF Standing Heart Rate Pre-Dialysis 114 BPM Temperature Pre-Dialysis 97.6 degF July 17, 2024 In-Center Hemodialysis Treatment 7511-09-02L11:40:24.000Z 2950-61-68X52:30:59.000Z BP Sitting (Pre-Dialysis) 159/93 mmHg BP Sitting (Post-Dialysis) 137/88 mmHg Concurrent Access: falseAV Graft Upper Arm (Right) Arterial Sitting Heart Rate Pre-Dialysis 104 BPM Sitting H eart Rate Post-Dialysis 104 BPM Temperature Pre-Dialysis 98 degF Temperature Post -Dialysis 97.2 degF July 15, 2024 In-Center Hemodialysis Treatment 2428-54-29P00:31:52.000Z 9899-91-16P37:20:13.000Z BP Sitting (Pre-Dialysis) 118/80 mmHg BP Sitting (Post-Dialysis) 134/89 mmHg Concurrent Access: falseAV Graft Upper Arm (Right) Arterial Sitting Heart Rate Pre-Dialysis 60 BPM Sitting H eart Rate Post-Dialysis 100 BPM Temperature Pre-Dialysis 97.9 degF Temperature Post -Dialysis 98 degF July 12, 2024 In-Center Hemodialysis Treatment [id number]:33:14.000Z 6619-47-46Z83:21:05.000Z BP Sitting (Pre-Dialysis) 134/75 mmHg BP Sitting (Post-Dialysis) 117/79 mmHg Concurrent Access: falseAV Graft Upper Arm (Right) Arterial BP Standing (Pre-Dialysis) 145/82 mmHg Sitti ng Heart Rate Post-Dialysis 87 BPM Sitting Heart Rate Pre-Dialysis 108 BPM Temperatu re Post-Dialysis 97.2 degF Standing Heart Rate Pre-Dialysis 131 BPM Temperature Pre-Dialysis 98 degF July 10, 2024 In-Center Hemodialysis Treatment 1650-13-57S85:33:54.000Z 8055-38-33D39:23:55.000Z BP Sitting (Pre-Dialysis) 140/80 mmHg BP Sitting (Post-Dialysis) 130/50 mmHg Concurrent Access: falseAV Graft Upper Arm (Right) Arterial BP Standing (Pre-Dialysis) 136/98 mmHg BP Standing (P ost-Dialysis) 142/60 mmHg Sitting Heart Rate Pre-Dialysis 108 BPM Sitting Heart Rate Post-Dialysis 99 BPM Standing Heart Rate Pre-Dialysis 109 BPM Standing Heart Rate Post-Dialysis 106 BPM Temperature Pre-Dialysis 98.2 degF Temperature Post -Dialysis 98 degF July 05, 2024 In-Center Hemodialysis Treatment 5927-26-06K84:36:46.000Z 7709-71-64P67:34:22.000Z BP Sitting (Pre-Dialysis) 166/90 mmHg BP Sitting (Post-Dialysis) 138/91 mmHg Concurrent Access: falseAV Graft Upper Arm (Right) Arterial Sitting Heart Rate Pre-Dialysis 130 BPM Sitting H eart Rate Post-Dialysis 99 BPM Temperature Pre-Dialysis 96.6 degF Temperature Post -Dialysis 98 degF July 03, 2024 In-Center Hemodialysis Treatment 5825-82-48T42:36:15.000Z 8701-93-50H09:26:11.000Z BP Sitting (Pre-Dialysis) 171/98 mmHg BP Sitting (Post-Dialysis) 133/76 mmHg Concurrent Access: falseAV Graft Upper Arm (Right) Arterial BP Standing (Pre-Dialysis) 168/115 mmHg BP Standing (P ost-Dialysis) 127/80 mmHg Sitting Heart Rate Pre-Dialysis 106 BPM Sitting Heart Rate Post-Dialysis 108 BPM Standing Heart Rate Pre-Dialysis 99 BPM Standing Heart Rate Post-Dialysis 130 BPM Temperature Pre-Dialysis 97.2 degF Temperature Post -Dialysis 98 degF June 30, 2024 In-Center Hemodialysis Treatment 8144-68-32I61:44:23.000Z 6269-33-57F54:24:24.000Z BP Sitting (Pre-Dialysis) 150/100 mmHg BP Sitting (Post-Dialysis) 102/76 mmHg Concurrent Access: falseAV Graft Upper Arm (Right) Arterial BP Standing (Pre-Dialysis) 151/98 mmHg BP Standing (P ost-Dialysis) 106/79 mmHg Sitting Heart Rate Pre-Dialysis 101 BPM Sitting Heart Rate Post-Dialysis 100 BPM Standing Heart Rate Pre-Dialysis 120 BPM Standing Heart Rate Post-Dialysis 100 BPM Temperature Pre-Dialysis 97.2 degF Temperature Post -Dialysis 98 degF June 28, 2024 In-Center Hemodialysis Treatment 4968-50-29E55:07:51.000Z 5790-46-18R20:01:32.000Z BP Sitting (Pre-Dialysis) 144/78 mmHg BP Sitting (Post-Dialysis) 133/80 mmHg Concurrent Access: falseAV Graft Upper Arm (Right) Arterial BP Standing (Pre-Dialysis) 149/96 mmHg Sitting Heart Rate Post-Dialysis 72 BPM Sitting Heart Rate Pre-Dialysis 101 BPM Temperatu re Post-Dialysis 98 degF Standing Heart Rate Pre-Dialysis 70 BPM Temperature Pre-Dialysis 97.7 degF June 26, 2024 In-Center Hemodialysis Treatment 3332-40-99Z54:36:58.000Z 7965-66-44M83:26:29.000Z BP Sitting (Pre-Dialysis) 150/100 mmHg BP Sitting (Post-Dialysis) 135/69 mmHg Concurrent Access: falseAV Graft Upper Arm (Right) Arterial Sitting Heart Rate Pre-Dialysis 125 BPM Sitting H eart Rate Post-Dialysis 117 BPM Temperature Pre-Dialysis 98 degF Temperature Post -Dialysis 98 degF June 23, 2024 In-Center Hemodialysis Treatment 8121-99-37O46:47:13.000Z 6602-06-19S00:37:44.000Z BP Sitting (Pre-Dialysis) 151/100 mmHg BP Sitting (Post-Dialysis) 129/87 mmHg Concurrent Access: falseAV Graft Upper Arm (Right) Arterial BP Standing (Pre-Dialysis) 151/99 mmHg BP Standing (P ost-Dialysis) 130/76 mmHg Sitting Heart Rate Pre-Dialysis 94 BPM Sitting Heart Rate Post-Dialysis 117 BPM Standing Heart Rate Pre-Dialysis 103 BPM Standing Heart Rate Post-Dialysis 92 BPM Temperature Pre-Dialysis 98 degF Temperature Post -Dialysis 97.8 degF June 21, 2024 In-Center Hemodialysis Treatment 7317-07-33Z05:39:15.000Z 2081-13-08F89:28:25.000Z BP Sitting (Pre-Dialysis) 143/108 mmHg BP Sitting (Post-Dialysis) 105/73 mmHg Concurrent Access: falseAV Graft Upper Arm (Right) Arterial BP Standing (Pre-Dialysis) 135/82 mmHg Sitting Heart Rate Post-Dialysis 93 BPM Sitting Heart Rate Pre-Dialysis 113 BPM Temperatu re Post-Dialysis 98 degF Standing Heart Rate Pre-Dialysis 117 BPM Temperature Pre-Dialysis 97.6 degF June 19, 2024 In-Center Hemodialysis Treatment 8719-13-91J57:41:13.000Z 5045-88-33Z33:30:28.000Z BP Sitting (Pre-Dialysis) 153/87 mmHg BP Sitting (Post-Dialysis) 160/101 mmHg Concurrent Access: falseAV Graft Upper Arm (Right) Arterial BP Standing (Pre-Dialysis) 149/89 mmHg Sitting Heart Rate Post-Dialysis 88 BPM Sitting Heart Rate Pre-Dialysis 120 BPM Temperatu re Post-Dialysis 98 degF Standing Heart Rate Pre-Dialysis 120 BPM Temperature Pre-Dialysis 98.2 degF June 17, 2024 In-Center Hemodialysis Treatment 8071-70-46N65:33:13.000Z 2207-62-81F02:29:24.000Z BP Sitting (Pre-Dialysis) 137/84 mmHg BP Sitting (Post-Dialysis) 148/97 mmHg Concurrent Access: falseAV Graft Upper Arm (Right) Arterial Sitting Heart Rate Pre-Dialysis 108 BPM Sitting H eart Rate Post-Dialysis 103 BPM Temperature Pre-Dialysis 97.6 degF Temperature Post -Dialysis 97.8 degF June 14, 2024 In-Center Hemodialysis Treatment 8238-87-10E71:35:44.000Z 8534-21-48N22:28:44.000Z BP Sitting (Pre-Dialysis) 162/102 mmHg BP Sitting (Post-Dialysis) 128/77 mmHg Concurrent Access: falseAV Graft Upper Arm (Right) Arterial Sitting Heart Rate Pre-Dialysis 106 BPM BP Standi ng (Post-Dialysis) 121/76 mmHg Temperature Pre-Dialysis 98 degF Sitting Heart Ra te Post-Dialysis 85 BPM Standing Heart Rate Post-Cuca lysis 120 BPM Temperature Post-Dialysis 98 degF June 12, 2024 In-Center Hemodialysis Treatment 0964-60-84F91:23:13.000Z 0812-79-77T42:07:38.000Z BP Sitting (Pre-Dialysis) 140/85 mmHg BP Sitting (Post-Dialysis) 98/62 mmHg Concurrent Access: falseAV Graft Upper Arm (Right) Arterial Sitting Heart Rate Pre-Dialysis 103 BPM BP Standi ng (Post-Dialysis) 98/65 mmHg Temperature Pre-Dialysis 97.2 degF Sitting Heart Ra te Post-Dialysis 100 BPM Standing Heart Rate Post-Cuca lysis 80 BPM Temperature Post-Dialysis 98 degF June 10, 2024 In-Center Hemodialysis Treatment [id number]:10:00.000Z 0988-23-16F61:07:20.000Z BP Sitting (Pre-Dialysis) 135/81 mmHg BP Sitting (Post-Dialysis) 130/79 mmHg Concurrent Access: falseAV Graft Upper Arm (Right) Arterial Sitting Heart Rate Pre-Dialysis 98 BPM Sitting H eart Rate Post-Dialysis 60 BPM Temperature Pre-Dialysis 98.6 degF Temperature Post -Dialysis 98 degF June 07, 2024 In-Center Hemodialysis Treatment [id number]:31:27.000Z [id number]:22:33.000Z BP Sitting (Pre-Dialysis) 156/102 mmHg BP Sitting (Post-Dialysis) 126/81 mmHg Concurrent Access: falseAV Graft Upper Arm (Right) Arterial Sitting Heart Rate Pre-Dialysis 106 BPM Sitting H eart Rate Post-Dialysis 100 BPM Temperature Pre-Dialysis 97.9 degF Temperature Post -Dialysis 97.5 degF June 05, 2024 In-Center Hemodialysis Treatment [id number]:22:17.000Z 6740-97-01W57:16:00.000Z BP Sitting (Pre-Dialysis) 143/95 mmHg BP Sitting (Post-Dialysis) 155/94 mmHg Concurrent Access: falseAV Graft Upper Arm (Right) Arterial Sitting Heart Rate Pre-Dialysis 105 BPM Sitting H eart Rate Post-Dialysis 103 BPM Temperature Pre-Dialysis 98.4 degF Temperature Post -Dialysis 98 degF June 03, 2024 In-Center Hemodialysis Treatment [id number]:41:21.000Z [id number]:33:36.000Z BP Sitting (Pre-Dialysis) 150/93 mmHg BP Sitting (Post-Dialysis) 120/68 mmHg Concurrent Access: falseAV Graft Upper Arm (Right) Arterial Sitting Heart Rate Pre-Dialysis 97 BPM BP Standi ng (Post-Dialysis) 134/94 mmHg Temperature Pre-Dialysis 98 degF Sitting Heart Ra te Post-Dialysis 99 BPM Standing Heart Rate Post-Cuca lysis 100 BPM Temperature Post-Dialysis 97 .5 degF May 31, 2024 In-Center Hemodialysis Treatment [id number]:38:02.000Z 7886-79-84P07:32:17.000Z BP Sitting (Pre-Dialysis) 139/76 mmHg BP Sitting (Post-Dialysis) 131/76 mmHg Concurrent Access: falseAV Graft Upper Arm (Right) Arterial Sitting Heart Rate Pre-Dialysis 100 BPM BP Standi ng (Post-Dialysis) 125/83 mmHg Temperature Pre-Dialysis 98 degF Sitting Heart Ra te Post-Dialysis 97 BPM Standing Heart Rate Post-Cuca lysis 96 BPM Temperature Post-Dialysis 98 degF May 28, 2024 In-Center Hemodialysis Treatment [id number]:35:32.000Z 4988-21-26V24:23:52.000Z BP Sitting (Pre-Dialysis) 125/90 mmHg BP Sitting (Post-Dialysis) 122/76 mmHg Concurrent Access: falseAV Graft Upper Arm (Right) Arterial Sitting Heart Rate Pre-Dialysis 105 BPM BP Standi ng (Post-Dialysis) 101/66 mmHg Temperature Pre-Dialysis 98 degF Sitting Heart Ra te Post-Dialysis 88 BPM Standing Heart Rate Post-Cuca lysis 76 BPM Temperature Post-Dialysis 98 degF May 26, 2024 In-Center Hemodialysis Treatment [id number]:33:00.000Z 8060-23-15O78:27:00.000Z BP Sitting (Pre-Dialysis) 148/89 mmHg BP Sitting (Post-Dialysis) 109/69 mmHg Concurrent Access: falseAV Graft Upper Arm (Right) Arterial BP Standing (Pre-Dialysis) 155/84 mmHg Sitting Heart Rate Post-Dialysis 100 BPM Sitting Heart Rate Pre-Dialysis 103 BPM Temperatu re Post-Dialysis 98 degF Standing Heart Rate Pre-Dialysis 120 BPM Temperature Pre-Dialysis 98.3 degF May 24, 2024 In-Center Hemodialysis Treatment [id number]:41:57.000Z 5061-59-20Y07:12:58.000Z BP Sitting (Pre-Dialysis) 163/97 mmHg BP Sitting (Post-Dialysis) 126/99 mmHg Concurrent Access: falseAV Graft Upper Arm (Right) Arterial Sitting Heart Rate Pre-Dialysis 112 BPM BP Standi ng (Post-Dialysis) 130/86 mmHg Temperature Pre-Dialysis 98 degF Sitting Heart Ra te Post-Dialysis 109 BPM Standing Heart Rate Post-Cuca lysis 80 BPM Temperature Post-Dialysis 98 degF May 22, 2024 In-Center Hemodialysis Treatment [id number]:31:28.000Z 5810-49-80G21:22:53.000Z BP Sitting (Pre-Dialysis) 156/99 mmHg BP Sitting (Post-Dialysis) 136/84 mmHg Concurrent Access: falseAV Graft Upper Arm (Right) Arterial Sitting Heart Rate Pre-Dialysis 100 BPM BP Standing (Post-Dialysis) 115/54 mmHg Temperature Pre-Dialysis 97.1 degF Sitting Heart Ra te Post-Dialysis 100 BPM Standing Heart Rate Post-Cuca lysis 120 BPM Temperature Post-Dialysis 98 degF May 20, 2024 In-Center Hemodialysis Treatment [id number]:30:22.000Z 9760-50-77V43:23:38.000Z BP Sitting (Pre-Dialysis) 149/100 mmHg BP Sitting (Post-Dialysis) 146/84 mmHg Concurrent Access: falseAV Graft Upper Arm (Right) Arterial Sitting Heart Rate Pre-Dialysis 114 BPM BP Standing (Post-Dialysis) 121/68 mmHg Temperature Pre-Dialysis 98.7 degF Sitting Heart Ra te Post-Dialysis 120 BPM Standing Heart Rate Post-Cuca lysis 96 BPM Temperature Post-Dialysis 98 degF May 17, 2024 In-Center Hemodialysis Treatment 8575-05-28U78:24:58.000Z 9882-35-36O06:17:54.000Z BP Sitting (Pre-Dialysis) 157/99 mmHg BP Sitting (Post-Dialysis) 120/87 mmHg Concurrent Access: falseAV Graft Upper Arm (Right) Arterial Sitting Heart Rate Pre-Dialysis 102 BPM BP Standi ng (Post-Dialysis) 149/98 mmHg Temperature Pre-Dialysis 97 degF Sitting Heart Ra te Post-Dialysis 98 BPM Standing Heart Rate Post-Cuca lysis 99 BPM Temperature Post-Dialysis 98 degF May 15, 2024 In-Center Hemodialysis Treatment [id number]:23:32.000Z 8954-35-31Y81:15:48.000Z BP Sitting (Pre-Dialysis) 169/99 mmHg BP Sitting (Post-Dialysis) 123/87 mmHg Concurrent Access: falseAV Graft Upper Arm (Right) Arterial Sitting Heart Rate Pre-Dialysis 120 BPM BP Standing (Post-Dialysis) 115/76 mmHg Temperature Pre-Dialysis 98.3 degF Sitting Heart Ra te Post-Dialysis 98 BPM Standing Heart Rate Post-Cuca lysis 110 BPM Temperature Post-Dialysis 98 degF May 13, 2024 In-Center Hemodialysis Treatment [id number]:23:56.000Z 0815-82-70I85:14:11.000Z BP Sitting (Pre-Dialysis) 144/109 mmHg BP Sitting (Post-Dialysis) 150/87 mmHg Concurrent Access: falseAV Graft Upper Arm (Right) Arterial Sitting Heart Rate Pre-Dialysis 100 BPM Sitting H eart Rate Post-Dialysis 71 BPM Temperature Pre-Dialysis 98 degF May 10, 2024 In-Center Hemodialysis Treatment 2403-88-42L22:48:51.000Z 4078-59-19P46:41:22.000Z BP Sitting (Pre-Dialysis) 148/86 mmHg BP Sitting (Post-Dialysis) 131/82 mmHg Concurrent Access: falseAV Graft Upper Arm (Right) Arterial BP Standing (Pre-Dialysis) 151/85 mmHg BP Standing (P ost-Dialysis) 140/89 mmHg Sitting Heart Rate Pre-Dialysis 104 BPM Sitting Heart Rate Post-Dialysis 86 BPM Standing Heart Rate Pre-Dialysis 86 BPM Standing Heart Rate Post-Dialysis 96 BPM Temperature Pre-Dialysis 97.8 degF Temperature Post -Dialysis 98 degF May 08, 2024 In-Center Hemodialysis Treatment [id number]:09:18.000Z 1980-61-97E94:47:33.000Z BP Sitting (Pre-Dialysis) 133/82 mmHg BP Sitting (Post-Dialysis) 120/73 mmHg Concurrent Access: falseAV Graft Upper Arm (Right) Arterial BP Standing (Pre-Dialysis) 141/95 mmHg BP Standing (P ost-Dialysis) 108/70 mmHg Sitting Heart Rate Pre-Dialysis 94 BPM Sitting Heart Rate Post-Dialysis 90 BPM Standing Heart Rate Pre-Dialysis 95 BPM Standing Heart Rate Post-Dialysis 100 BPM Temperature Pre-Dialysis 97.2 degF Temperature Post -Dialysis 97.5 degF May 06, 2024 In-Center Hemodialysis Treatment 7889-20-30Q70:40:12.000Z 0173-69-41V23:29:13.000Z BP Sitting (Pre-Dialysis) 156/91 mmHg BP Sitting (Post-Dialysis) 149/81 mmHg Concurrent Access: falseAV Graft Upper Arm (Right) Arterial Sitting Heart Rate Pre-Dialysis 91 BPM BP Standing (Post-Dialysis) 105/79 mmHg Temperature Pre-Dialysis 97.2 degF Sitting Heart Ra te Post-Dialysis 79 BPM Standing Heart Rate Post-Cuca lysis 105 BPM Temperature Post-Dialysis 98 degF May 03, 2024 In-Center Hemodialysis Treatment [id number]:47:12.000Z 4709-95-75N43:30:30.000Z BP Sitting (Pre-Dialysis) 154/106 mmHg BP Sitting (Post-Dialysis) 112/80 mmHg Concurrent Access: falseAV Graft Upper Arm (Right) Arterial BP Standing (Pre-Dialysis) 151/103 mmHg BP Standing (P ost-Dialysis) 115/80 mmHg Sitting Heart Rate Pre-Dialysis 96 BPM Sitting Heart Rate Post-Dialysis 60 BPM Standing Heart Rate Pre-Dialysis 97 BPM Standing Heart Rate Post-Dialysis 80 BPM Temperature Pre-Dialysis 97.3 degF Temperature Post -Dialysis 98 degF May 01, 2024 In-Center Hemodialysis Treatment 5828-08-68F16:35:12.000Z 4459-77-20D49:23:52.000Z BP Sitting (Pre-Dialysis) 144/88 mmHg BP Sitting (Post-Dialysis) 141/78 mmHg Concurrent Access: falseAV Graft Upper Arm (Right) Arterial Sitting Heart Rate Pre-Dialysis 99 BPM BP Standi ng (Post-Dialysis) 115/76 mmHg Temperature Pre-Dialysis 98 degF Sitting Heart Ra te Post-Dialysis 109 BPM Standing Heart Rate Post-Cuca lysis 109 BPM Temperature Post-Dialysis 98 degF April 29, 2024 In-Center Hemodialysis Treatment 4344-23-25U37:39:04.000Z 5454-90-13L74:32:15.000Z BP Sitting (Pre-Dialysis) 143/73 mmHg BP Sitting (Post-Dialysis) 120/94 mmHg Concurrent Access: falseAV Graft Upper Arm (Right) Arterial BP Standing (Pre-Dialysis) 148/97 mmHg BP Standing (P ost-Dialysis) 100/64 mmHg Sitting Heart Rate Pre-Dialysis 97 BPM Sitting Heart Rate Post-Dialysis 90 BPM Standing Heart Rate Pre-Dialysis 107 BPM Standing Heart Rate Post-Dialysis 110 BPM Temperature Pre-Dialysis 97 degF Temperature Post -Dialysis 97.4 degF April 26, 2024 In-Center Hemodialysis Treatment [id number]:44:27.000Z 0787-66-16Y88:36:27.000Z BP Sitting (Pre-Dialysis) 140/89 mmHg BP Sitting (Post-Dialysis) 125/99 mmHg Concurrent Access: falseAV Graft Upper Arm (Right) Arterial BP Standing (Pre-Dialysis) 151/98 mmHg BP Standing (P ost-Dialysis) 133/99 mmHg Sitting Heart Rate Pre-Dialysis 89 BPM Sitting Heart Rate Post-Dialysis 80 BPM Standing Heart Rate Pre-Dialysis 80 BPM Standing Heart Rate Post-Dialysis 89 BPM Temperature Pre-Dialysis 98 degF Temperature Post -Dialysis 97.7 degF April 24, 2024 In-Center Hemodialysis Treatment [id number]:46:16.000Z 9874-89-89S81:39:21.000Z BP Sitting (Pre-Dialysis) 157/92 mmHg BP Sitting (Post-Dialysis) 120/77 mmHg Concurrent Access: falseAV Graft Upper Arm (Right) Arterial BP Standing (Pre-Dialysis) 147/96 mmHg BP Standing (P ost-Dialysis) 101/56 mmHg Sitting Heart Rate Pre-Dialysis 102 BPM Sitting Heart Rate Post-Dialysis 99 BPM Standing Heart Rate Pre-Dialysis 105 BPM Standing Heart Rate Post-Dialysis 109 BPM Temperature Pre-Dialysis 97.3 degF Temperature Post -Dialysis 98 degF April 22, 2024 In-Center Hemodialysis Treatment [id number]:51:53.000Z 4694-72-48E67:41:53.000Z BP Sitting (Pre-Dialysis) 162/100 mmHg BP Sitting (Post-Dialysis) 125/88 mmHg Concurrent Access: falseAV Graft Upper Arm (Right) Arterial Sitting Heart Rate Pre-Dialysis 107 BPM BP Standing (Post-Dialysis) 109/60 mmHg Temperature Pre-Dialysis 97.6 degF Sitting Heart Ra te Post-Dialysis 93 BPM Standing Heart Rate Post-Cuca lysis 96 BPM Temperature Post-Dialysis 97 .6 degF April 19, 2024 In-Center Hemodialysis Treatment [id number]:36:42.000Z 8619-28-91S42:22:33.000Z BP Sitting (Pre-Dialysis) 136/95 mmHg BP Sitting (Post-Dialysis) 120/78 mmHg Concurrent Access: falseAV Graft Upper Arm (Right) Arterial Sitting Heart Rate Pre-Dialysis 97 BPM BP Standi ng (Post-Dialysis) 114/66 mmHg Temperature Pre-Dialysis 98 degF Sitting Heart Ra te Post-Dialysis 94 BPM Standing Heart Rate Post-Cuca lysis 92 BPM Temperature Post-Dialysis 98 degF April 17, 2024 In-Center Hemodialysis Treatment [id number]:41:58.000Z 7564-91-89Z57:18:28.000Z BP Sitting (Pre-Dialysis) 148/84 mmHg BP Sitting (Post-Dialysis) 128/79 mmHg Concurrent Access: falseAV Graft Upper Arm (Right) Arterial Sitting Heart Rate Pre-Dialysis 104 BPM Sitting H eart Rate Post-Dialysis 85 BPM Temperature Pre-Dialysis 98.1 degF Temperature Post -Dialysis 97.7 degF April 15, 2024 In-Center Hemodialysis Treatment 8725-06-38Z85:06:26.000Z 0978-78-99C33:57:37.000Z BP Sitting (Pre-Dialysis) 160/98 mmHg BP Sitting (Post-Dialysis) 124/89 mmHg Concurrent Access: falseAV Graft Upper Arm (Right) Arterial Sitting Heart Rate Pre-Dialysis 97 BPM Sitting H eart Rate Post-Dialysis 92 BPM Temperature Pre-Dialysis 97 degF Temperature Post -Dialysis 98 degF April 12, 2024 In-Center Hemodialysis Treatment [id number]:35:04.000Z 6852-08-66D38:23:08.000Z BP Sitting (Pre-Dialysis) 139/79 mmHg BP Sitting (Post-Dialysis) 108/67 mmHg Concurrent Access: falseAV Graft Upper Arm (Right) Arterial BP Standing (Pre-Dialysis) 138/79 mmHg Sitti ng Heart Rate Post-Dialysis 95 BPM Sitting Heart Rate Pre-Dialysis 99 BPM Temperatu re Post-Dialysis 97.7 degF Standing Heart Rate Pre-Dialysis 99 BPM Temperature Pre-Dialysis 97.8 degF April 10, 2024 In-Center Hemodialysis Treatment 7976-92-72K57:46:56.000Z 3096-22-05A14:43:46.000Z BP Sitting (Pre-Dialysis) 158/94 mmHg BP Sitting (Post-Dialysis) 133/76 mmHg Concurrent Access: falseAV Graft Upper Arm (Right) Arterial Sitting Heart Rate Pre-Dialysis 106 BPM Sitting H eart Rate Post-Dialysis 74 BPM Temperature Pre-Dialysis 98.3 degF Temperature Post -Dialysis 98.4 degF April 08, 2024 In-Center Hemodialysis Treatment 7413-97-07Z11:40:39.000Z 6939-53-05J21:30:54.000Z BP Sitting (Pre-Dialysis) 147/95 mmHg BP Sitting (Post-Dialysis) 136/85 mmHg Concurrent Access: falseAV Graft Upper Arm (Right) Arterial Sitting Heart Rate Pre-Dialysis 110 BPM Sitting H eart Rate Post-Dialysis 98 BPM Temperature Pre-Dialysis 97.3 degF Temperature Post -Dialysis 98 degF April 05, 2024 In-Center Hemodialysis Treatment 0887-05-28M70:40:10.000Z 4402-21-73I20:30:46.000Z BP Sitting (Pre-Dialysis) 150/95 mmHg BP Sitting (Post-Dialysis) 136/92 mmHg Concurrent Access: falseAV Graft Upper Arm (Right) Arterial BP Standing (Pre-Dialysis) 150/96 mmHg BP Standing (P ost-Dialysis) 115/65 mmHg Sitting Heart Rate Pre-Dialysis 105 BPM Sitting Heart Rate Post-Dialysis 102 BPM Standing Heart Rate Pre-Dialysis 99 BPM Standing Heart Rate Post-Dialysis 103 BPM Temperature Pre-Dialysis 97 degF Temperature Post -Dialysis 98 degF April 03, 2024 In-Center Hemodialysis Treatment 9786-16-37Q95:42:09.000Z [id number]:35:04.000Z BP Sitting (Pre-Dialysis) 169/100 mmHg BP Sitting (Post-Dialysis) 122/79 mmHg Concurrent Access: falseAV Graft Upper Arm (Right) Arterial BP Standing (Pre-Dialysis) 151/75 mmHg Sitti ng Heart Rate Post-Dialysis 100 BPM Sitting Heart Rate Pre-Dialysis 106 BPM Temperatu re Post-Dialysis 97.9 degF Standing Heart Rate Pre-Dialysis 109 BPM Temperature Pre-Dialysis 97.7 degF April 01, 2024 In-Center Hemodialysis Treatment 2585-27-31W91:39:05.000Z 2527-99-60G47:33:20.000Z BP Sitting (Pre-Dialysis) 152/98 mmHg BP Sitting (Post-Dialysis) 132/77 mmHg Concurrent Access: falseAV Graft Upper Arm (Right) Arterial BP Standing (Pre-Dialysis) 157/101 mmHg BP Standing (P ost-Dialysis) 134/68 mmHg Sitting Heart Rate Pre-Dialysis 103 BPM Sitting Heart Rate Post-Dialysis 95 BPM Standing Heart Rate Pre-Dialysis 120 BPM Standing Heart Rate Post-Dialysis 97 BPM Temperature Pre-Dialysis 98.7 degF Temperature Post -Dialysis 97.5 degF March 29, 2024 In-Center Hemodialysis Treatment 4255-15-12S62:42:23.000Z 8634-49-64R88:23:44.000Z BP Sitting (Pre-Dialysis) 145/95 mmHg BP Sitting (Post-Dialysis) 110/63 mmHg Concurrent Access: falseAV Graft Upper Arm (Right) Arterial BP Standing (Pre-Dialysis) 130/80 mmHg BP Standing (P ost-Dialysis) 113/62 mmHg Sitting Heart Rate Pre-Dialysis 112 BPM Sitting Heart Rate Post-Dialysis 106 BPM Standing Heart Rate Pre-Dialysis 111 BPM Standing Heart Rate Post-Dialysis 96 BPM Temperature Pre-Dialysis 97.3 degF Temperature Post -Dialysis 96 degF March 27, 2024 In-Center Hemodialysis Treatment 2752-34-25R54:35:50.000Z 6613-86-38O00:33:20.000Z BP Sitting (Pre-Dialysis) 137/92 mmHg BP Sitting (Post-Dialysis) 126/81 mmHg Concurrent Access: falseAV Graft Upper Arm (Right) Arterial BP Standing (Pre-Dialysis) 148/82 mmHg Sitti ng Heart Rate Post-Dialysis 59 BPM Sitting Heart Rate Pre-Dialysis 91 BPM Temperatu re Post-Dialysis 97.5 degF Standing Heart Rate Pre-Dialysis 91 BPM Temperature Pre-Dialysis 97.8 degF March 22, 2024 In-Center Hemodialysis Treatment 4120-83-87T00:39:37.000Z 0532-21-67M84:32:37.000Z BP Sitting (Pre-Dialysis) 166/95 mmHg BP Sitting (Post-Dialysis) 122/99 mmHg Concurrent Access: falseAV Graft Upper Arm (Right) Arterial BP Standing (Pre-Dialysis) 145/89 mmHg BP Standing (P ost-Dialysis) 152/101 mmHg Sitting Heart Rate Pre-Dialysis 94 BPM Sitting Heart Rate Post-Dialysis 99 BPM Standing Heart Rate Pre-Dialysis 107 BPM Standing Heart Rate Post-Dialysis 112 BPM Temperature Pre-Dialysis 98.3 degF Temperature Post -Dialysis 98 degF March 20, 2024 In-Center Hemodialysis Treatment [id number]:33:58.000Z 6319-10-20S90:23:43.000Z BP Sitting (Pre-Dialysis) 164/73 mmHg BP Sitting (Post-Dialysis) 151/96 mmHg Concurrent Access: falseAV Graft Upper Arm (Right) Arterial BP Standing (Pre-Dialysis) 168/94 mmHg BP Standing (P ost-Dialysis) 134/84 mmHg Sitting Heart Rate Pre-Dialysis 52 BPM Sitting Heart Rate Post-Dialysis 104 BPM Standing Heart Rate Pre-Dialysis 108 BPM Standing Heart Rate Post-Dialysis 107 BPM Temperature Pre-Dialysis 97 degF Temperature Post -Dialysis 98 degF March 18, 2024 In-Center Hemodialysis Treatment 6395-55-37I22:35:18.000Z 7952-32-96Q60:56:55.000Z BP Sitting (Pre-Dialysis) 151/96 mmHg BP Sitting (Post-Dialysis) 148/98 mmHg Concurrent Access: falseAV Graft Upper Arm (Right) Arterial BP Standing (Pre-Dialysis) 168/104 mmHg BP Standing (P ost-Dialysis) 126/88 mmHg Sitting Heart Rate Pre-Dialysis 98 BPM Sitting Heart Rate Post-Dialysis 89 BPM Standing Heart Rate Pre-Dialysis 101 BPM Standing Heart Rate Post-Dialysis 106 BPM Temperature Pre-Dialysis 98.6 degF March 15, 2024 In-Center Hemodialysis Treatment 7836-15-58J30:30:02.000Z 3163-07-67A82:22:53.000Z BP Sitting (Pre-Dialysis) 146/86 mmHg BP Sitting (Post-Dialysis) 139/93 mmHg Concurrent Access: falseAV Graft Upper Arm (Right) Arterial BP Standing (Pre-Dialysis) 154/109 mmHg BP Standing (P ost-Dialysis) 113/56 mmHg Sitting Heart Rate Pre-Dialysis 102 BPM Sitting Heart Rate Post-Dialysis 104 BPM Standing Heart Rate Pre-Dialysis 104 BPM Standing Heart Rate Post-Dialysis 127 BPM Temperature Pre-Dialysis 98 degF Temperature Post -Dialysis 98 degF March 13, 2024 In-Center Hemodialysis Treatment 3447-09-98N97:29:46.000Z 6780-25-92U13:10:23.000Z BP Sitting (Pre-Dialysis) 163/97 mmHg BP Sitting (Post-Dialysis) 140/90 mmHg Concurrent Access: falseAV Graft Upper Arm (Right) Arterial BP Standing (Pre-Dialysis) 174/112 mmHg BP Standing (P ost-Dialysis) 137/93 mmHg Sitting Heart Rate Pre-Dialysis 98 BPM Sitting Heart Rate Post-Dialysis 60 BPM Standing Heart Rate Pre-Dialysis 112 BPM Standing Heart Rate Post-Dialysis 65 BPM Temperature Pre-Dialysis 97.2 degF Temperature Post -Dialysis 98 degF March 11, 2024 In-Center Hemodialysis Treatment 4713-80-93I37:39:57.000Z 2564-58-26Z79:31:23.000Z BP Sitting (Pre-Dialysis) 145/88 mmHg BP Sitting (Post-Dialysis) 143/72 mmHg Concurrent Access: falseAV Graft Upper Arm (Right) Arterial BP Standing (Pre-Dialysis) 150/103 mmHg BP Standing (P ost-Dialysis) 128/99 mmHg Sitting Heart Rate Pre-Dialysis 92 BPM Sitting Heart Rate Post-Dialysis 85 BPM Standing Heart Rate Pre-Dialysis 61 BPM Standing Heart Rate Post-Dialysis 100 BPM Temperature Pre-Dialysis 98.1 degF Temperature Post -Dialysis 98.2 degF March 08, 2024 In-Center Hemodialysis Treatment 8945-55-20D42:45:55.000Z 7773-19-64C41:36:15.000Z BP Sitting (Pre-Dialysis) 169/99 mmHg BP Sitting (Post-Dialysis) 120/80 mmHg Concurrent Access: falseAV Graft Upper Arm (Right) Arterial BP Standing (Pre-Dialysis) 158/99 mmHg BP Standing (P ost-Dialysis) 119/79 mmHg Sitting Heart Rate Pre-Dialysis 91 BPM Sitting Heart Rate Post-Dialysis 100 BPM Standing Heart Rate Pre-Dialysis 104 BPM Standing Heart Rate Post-Dialysis 100 BPM Temperature Pre-Dialysis 97.7 degF Temperature Post -Dialysis 98 degF March 06, 2024 In-Center Hemodialysis Treatment [id number]:39:33.000Z 3113-80-73W26:22:48.000Z BP Sitting (Pre-Dialysis) 141/74 mmHg BP Sitting (Post-Dialysis) 148/83 mmHg Concurrent Access: falseAV Graft Upper Arm (Right) Arterial Sitting Heart Rate Pre-Dialysis 85 BPM BP Standi ng (Post-Dialysis) 118/81 mmHg Temperature Pre-Dialysis 98 degF Sitting Heart Ra te Post-Dialysis 110 BPM Standing Heart Rate Post-Cuca lysis 102 BPM Temperature Post-Dialysis 98 degF March 04, 2024 In-Center Hemodialysis Treatment 7863-56-86V30:50:01.000Z 8320-84-96M00:49:07.000Z BP Sitting (Pre-Dialysis) 132/82 mmHg BP Sitting (Post-Dialysis) 146/85 mmHg Concurrent Access: falseAV Graft Upper Arm (Right) Arterial BP Standing (Pre-Dialysis) 121/78 mmHg BP Standing (P ost-Dialysis) 109/75 mmHg Sitting Heart Rate Pre-Dialysis 80 BPM Sitting Heart Rate Post-Dialysis 110 BPM Standing Heart Rate Pre-Dialysis 80 BPM Standing Heart Rate Post-Dialysis 133 BPM Temperature Pre-Dialysis 97.7 degF Temperature Post -Dialysis 97.4 degF March 01, 2024 In-Center Hemodialysis Treatment [id number]:43:48.000Z 5686-06-84F85:53:54.000Z BP Sitting (Pre-Dialysis) 120/83 mmHg BP Sitting (Post-Dialysis) 128/92 mmHg Concurrent Access: falseAV Graft Upper Arm (Right) Arterial Sitting Heart Rate Pre-Dialysis 87 BPM BP Standi ng (Post-Dialysis) 130/80 mmHg Temperature Pre-Dialysis 98 degF Sitting Heart Ra te Post-Dialysis 102 BPM Standing Heart Rate Post-Cuca lysis 99 BPM Temperature Post-Dialysis 98 degF February 28, 2024 In-Center Hemodialysis Treatment 5342-89-00W14:48:45.000Z 9773-66-40L56:42:35.000Z BP Sitting (Pre-Dialysis) 122/79 mmHg BP Sitting (Post-Dialysis) 123/78 mmHg Concurrent Access: falseAV Graft Upper Arm (Right) Arterial BP Standing (Pre-Dialysis) 120/77 mmHg Sitting Heart Rate Post-Dialysis 95 BPM Sitting Heart Rate Pre-Dialysis 95 BPM Temperatu re Post-Dialysis 98 degF Standing Heart Rate Pre-Dialysis 95 BPM Temperature Pre-Dialysis 97.9 degF February 26, 2024 In-Center Hemodialysis Treatment 6665-58-37T97:45:55.000Z 3855-88-97K81:25:30.000Z BP Sitting (Pre-Dialysis) 151/98 mmHg BP Sitting (Post-Dialysis) 114/66 mmHg Concurrent Access: falseAV Graft Upper Arm (Right) Arterial Sitting Heart Rate Pre-Dialysis 80 BPM BP Standing (Post-Dialysis) 100/53 mmHg Temperature Pre-Dialysis 97.8 degF Sitting Heart Ra te Post-Dialysis 86 BPM Standing Heart Rate Post-Cuca lysis 106 BPM Temperature Post-Dialysis 97 .6 degF February 23, 2024 In-Center Hemodialysis Treatment 7728-75-26Z47:53:25.000Z 5473-89-01Q45:14:40.000Z BP Sitting (Pre-Dialysis) 135/74 mmHg BP Sitting (Post-Dialysis) 140/89 mmHg Concurrent Access: falseAV Graft Upper Arm (Right) Arterial Sitting Heart Rate Pre-Dialysis 120 BPM BP Standi ng (Post-Dialysis) 109/68 mmHg Temperature Pre-Dialysis 98 degF Sitting Heart Ra te Post-Dialysis 90 BPM Standing Heart Rate Post-Cuca lysis 86 BPM Temperature Post-Dialysis 98 degF February 21, 2024 In-Center Hemodialysis Treatment 6075-32-20T14:46:17.000Z 2873-63-92M23:38:47.000Z BP Sitting (Pre-Dialysis) 117/76 mmHg BP Sitting (Post-Dialysis) 132/88 mmHg Concurrent Access: falseAV Graft Upper Arm (Right) Arterial BP Standing (Pre-Dialysis) 123/77 mmHg BP Standing (P ost-Dialysis) 100/61 mmHg Sitting Heart Rate Pre-Dialysis 86 BPM Sitting Heart Rate Post-Dialysis 139 BPM Standing Heart Rate Pre-Dialysis 92 BPM Standing Heart Rate Post-Dialysis 93 BPM Temperature Pre-Dialysis 98 degF Temperature Post -Dialysis 98 degF February 19, 2024 In-Center Hemodialysis Treatment 6578-78-30T18:41:00.000Z 9798-29-29D51:51:40.000Z BP Sitting (Pre-Dialysis) 146/89 mmHg BP Sitting (Post-Dialysis) 147/88 mmHg Concurrent Access: falseAV Graft Upper Arm (Right) Arterial Sitting Heart Rate Pre-Dialysis 80 BPM BP Standing (Post-Dialysis) 114/68 mmHg Temperature Pre-Dialysis 97.8 degF Sitting Heart Ra te Post-Dialysis 80 BPM Standing Heart Rate Post-Cuca lysis 86 BPM Temperature Post-Dialysis 97 .9 degF February 18, 2024 Sequential Treatment [id number]:32:41.000Z 4715-98-32A05:44:42.000Z BP Sitting (Pre-Dialysis) 164/88 mmHg BP Sitting (Post-Dialysis) 118/93 mmHg Concurrent Access: falseAV Graft Upper Arm (Right) Arterial Sitting Heart Rate Pre-Dialysis 94 BPM Sitting H eart Rate Post-Dialysis 53 BPM Temperature Pre-Dialysis 97.2 degF Temperature Post -Dialysis 98 degF February 16, 2024 In-Center Hemodialysis Treatment 4776-35-06L26:32:00.000Z 7855-25-99O09:10:10.000Z BP Sitting (Pre-Dialysis) 148/88 mmHg BP Sitting (Post-Dialysis) 148/97 mmHg Concurrent Access: falseAV Graft Upper Arm (Right) Arterial BP Standing (Pre-Dialysis) 160/69 mmHg BP Standing (P ost-Dialysis) 163/79 mmHg Sitting Heart Rate Pre-Dialysis 95 BPM Sitting Heart Rate Post-Dialysis 95 BPM Standing Heart Rate Pre-Dialysis 100 BPM Standing Heart Rate Post-Dialysis 85 BPM Temperature Pre-Dialysis 98.2 degF Temperature Post -Dialysis 97.6 degF February 14, 2024 In-Center Hemodialysis Treatment [id number]:44:00.000Z [id number]:36:49.000Z BP Sitting (Pre-Dialysis) 141/81 mmHg BP Sitting (Post-Dialysis) 102/81 mmHg Concurrent Access: falseAV Graft Upper Arm (Right) Arterial Sitting Heart Rate Pre-Dialysis 95 BPM Sitting H eart Rate Post-Dialysis 93 BPM Temperature Pre-Dialysis 97.7 degF Temperature Post -Dialysis 98.6 degF February 13, 2024 Sequential Treatment [id number]:31:20.000Z 2573-50-60V14:18:56.000Z BP Sitting (Pre-Dialysis) 136/79 mmHg BP Sitting (Post-Dialysis) 120/70 mmHg Concurrent Access: falseAV Graft Upper Arm (Right) Arterial BP Standing (Pre-Dialysis) 132/83 mmHg BP Standing (P ost-Dialysis) 122/78 mmHg Sitting Heart Rate Pre-Dialysis 80 BPM Sitting Heart Rate Post-Dialysis 80 BPM Standing Heart Rate Pre-Dialysis 135 BPM Standing Heart Rate Post-Dialysis 49 BPM Temperature Pre-Dialysis 97.6 degF Temperature Post -Dialysis 98 degF February 12, 2024 In-Center Hemodialysis Treatment [id number]:02:47.000Z [id number]:23:32.000Z BP Sitting (Pre-Dialysis) 149/99 mmHg BP Sitting (Post-Dialysis) 146/87 mmHg Concurrent Access: falseAV Graft Upper Arm (Right) Arterial Sitting Heart Rate Pre-Dialysis 87 BPM BP Standing (Post-Dialysis) 155/79 mmHg Temperature Pre-Dialysis 98.3 degF Sitting Heart Ra te Post-Dialysis 96 BPM Standing Heart Rate Post-Cuca lysis 86 BPM February 07, 2024 In-Center Hemodialysis Treatment [id number]:41:57.000Z 7763-12-11P50:32:58.000Z BP Sitting (Pre-Dialysis) 108/72 mmHg BP Sitting (Post-Dialysis) 111/67 mmHg Concurrent Access: falseAV Graft Upper Arm (Right) Arterial BP Standing (Pre-Dialysis) 137/94 mmHg BP Standing (P ost-Dialysis) 119/80 mmHg Sitting Heart Rate Pre-Dialysis 97 BPM Sitting Heart Rate Post-Dialysis 100 BPM Standing Heart Rate Pre-Dialysis 73 BPM Standing Heart Rate Post-Dialysis 112 BPM Temperature Pre-Dialysis 97.7 degF Temperature Post -Dialysis 97.2 degF February 05, 2024 In-Center Hemodialysis Treatment [id number]:35:04.000Z 5325-36-29D27:24:05.000Z BP Sitting (Pre-Dialysis) 133/86 mmHg BP Sitting (Post-Dialysis) 171/87 mmHg Concurrent Access: falseAV Graft Upper Arm (Right) Arterial BP Standing (Pre-Dialysis) 172/83 mmHg BP Standing (P ost-Dialysis) 112/68 mmHg Sitting Heart Rate Pre-Dialysis 92 BPM Sitting Heart Rate Post-Dialysis 87 BPM Standing Heart Rate Pre-Dialysis 99 BPM Standing Heart Rate Post-Dialysis 87 BPM Temperature Pre-Dialysis 97.9 degF Temperature Post -Dialysis 97.5 degF February 02, 2024 In-Center Hemodialysis Treatment [id number]:28:00.000Z 4294-29-27F02:16:04.000Z BP Sitting (Pre-Dialysis) 134/78 mmHg BP Sitting (Post-Dialysis) 128/82 mmHg Concurrent Access: falseAV Graft Upper Arm (Right) Arterial Sitting Heart Rate Pre-Dialysis 89 BPM BP Standi ng (Post-Dialysis) 151/96 mmHg Temperature Pre-Dialysis 98 degF Sitting Heart Ra te Post-Dialysis 60 BPM Standing Heart Rate Post-Cuca lysis 61 BPM Temperature Post-Dialysis 98 .2 degF January 31, 2024 In-Center Hemodialysis Treatment [id number]:39:00.000Z 7642-52-50F88:39:21.000Z BP Sitting (Pre-Dialysis) 136/78 mmHg BP Sitting (Post-Dialysis) 117/82 mmHg Concurrent Access: falseAV Graft Upper Arm (Right) Arterial BP Standing (Pre-Dialysis) 149/102 mmHg Sitti ng Heart Rate Post-Dialysis 97 BPM Sitting Heart Rate Pre-Dialysis 80 BPM Temperatu re Post-Dialysis 97 degF Standing Heart Rate Pre-Dialysis 80 BPM Temperature Pre-Dialysis 97.9 degF January 29, 2024 In-Center Hemodialysis Treatment 3421-24-24R39:39:37.000Z 2377-32-33R14:28:18.000Z BP Sitting (Pre-Dialysis) 129/78 mmHg BP Sitting (Post-Dialysis) 103/70 mmHg Concurrent Access: falseAV Graft Upper Arm (Right) Arterial BP Standing (Pre-Dialysis) 123/80 mmHg BP Standing (P ost-Dialysis) 119/62 mmHg Sitting Heart Rate Pre-Dialysis 90 BPM Sitting Heart Rate Post-Dialysis 88 BPM Standing Heart Rate Pre-Dialysis 92 BPM Standing Heart Rate Post-Dialysis 96 BPM Temperature Pre-Dialysis 97.3 degF Temperature Post -Dialysis 98 degF January 26, 2024 In-Center Hemodialysis Treatment [id number]:44:10.000Z 7596-67-99N94:32:50.000Z BP Sitting (Pre-Dialysis) 129/69 mmHg BP Sitting (Post-Dialysis) 108/70 mmHg Concurrent Access: falseAV Graft Upper Arm (Right) Arterial Sitting Heart Rate Pre-Dialysis 117 BPM BP Standing (Post-Dialysis) 103/67 mmHg Temperature Pre-Dialysis 98.3 degF Sitting Heart Ra te Post-Dialysis 80 BPM Standing Heart Rate Post-Cuca lysis 104 BPM Temperature Post-Dialysis 98 degF January 24, 2024 In-Center Hemodialysis Treatment [id number]:36:17.000Z 0838-81-82S20:30:17.000Z BP Sitting (Pre-Dialysis) 139/91 mmHg BP Sitting (Post-Dialysis) 114/65 mmHg Concurrent Access: falseAV Graft Upper Arm (Right) Arterial BP Standing (Pre-Dialysis) 157/89 mmHg BP Standing (P ost-Dialysis) 100/62 mmHg Sitting Heart Rate Pre-Dialysis 88 BPM Sitting Heart Rate Post-Dialysis 92 BPM Standing Heart Rate Pre-Dialysis 102 BPM Standing Heart Rate Post-Dialysis 109 BPM Temperature Pre-Dialysis 97.3 degF Temperature Post -Dialysis 97.6 degF January 22, 2024 In-Center Hemodialysis Treatment [id number]:35:00.000Z 3336-06-69Z81:27:13.000Z BP Sitting (Pre-Dialysis) 130/89 mmHg BP Sitting (Post-Dialysis) 132/74 mmHg Concurrent Access: falseAV Graft Upper Arm (Right) Arterial Sitting Heart Rate Pre-Dialysis 101 BPM Sitting H eart Rate Post-Dialysis 85 BPM Temperature Pre-Dialysis 98 degF Temperature Post -Dialysis 98 degF January 19, 2024 In-Center Hemodialysis Treatment 7917-71-30N96:45:00.000Z 6569-82-14N69:30:07.000Z BP Sitting (Pre-Dialysis) 126/78 mmHg BP Sitting (Post-Dialysis) 107/75 mmHg Concurrent Access: falseAV Graft Upper Arm (Right) Arterial BP Standing (Pre-Dialysis) 159/92 mmHg Sitting Heart Rate Post-Dialysis 94 BPM Sitting Heart Rate Pre-Dialysis 91 BPM Temperatu re Post-Dialysis 98 degF Standing Heart Rate Pre-Dialysis 100 BPM Temperature Pre-Dialysis 98 degF January 17, 2024 In-Center Hemodialysis Treatment 4006-63-73Y76:46:19.000Z 1099-01-04G31:53:40.000Z BP Sitting (Pre-Dialysis) 131/86 mmHg BP Sitting (Post-Dialysis) 132/80 mmHg Concurrent Access: falseAV Graft Upper Arm (Right) Arterial BP Standing (Pre-Dialysis) 130/76 mmHg BP Standing (P ost-Dialysis) 135/69 mmHg Sitting Heart Rate Pre-Dialysis 89 BPM Sitting Heart Rate Post-Dialysis 90 BPM Standing Heart Rate Pre-Dialysis 86 BPM Standing Heart Rate Post-Dialysis 113 BPM Temperature Pre-Dialysis 98.4 degF Temperature Post -Dialysis 98 degF January 15, 2024 In-Center Hemodialysis Treatment [id number]:41:33.000Z 5879-81-25E61:45:39.000Z BP Sitting (Pre-Dialysis) 136/81 mmHg BP Sitting (Post-Dialysis) 122/79 mmHg Concurrent Access: falseAV Graft Upper Arm (Right) Arterial BP Standing (Pre-Dialysis) 132/83 mmHg Sitting Heart Rate Post-Dialysis 93 BPM Sitting Heart Rate Pre-Dialysis 80 BPM Temperatu re Post-Dialysis 98 degF Standing Heart Rate Pre-Dialysis 85 BPM Temperature Pre-Dialysis 98.4 degF January 12, 2024 In-Center Hemodialysis Treatment 4371-70-55U75:28:01.000Z 8421-98-08I32:33:06.000Z BP Sitting (Pre-Dialysis) 152/74 mmHg BP Sitting (Post-Dialysis) 123/77 mmHg Concurrent Access: falseAV Graft Upper Arm (Right) Arterial BP Standing (Pre-Dialysis) 149/97 mmHg BP Standing (P ost-Dialysis) 117/68 mmHg Sitting Heart Rate Pre-Dialysis 89 BPM Sitting Heart Rate Post-Dialysis 86 BPM Standing Heart Rate Pre-Dialysis 93 BPM Standing Heart Rate Post-Dialysis 80 BPM Temperature Pre-Dialysis 97.7 degF Temperature Post -Dialysis 98 degF January 10, 2024 In-Center Hemodialysis Treatment 6216-62-20M65:56:29.000Z 8998-89-91E56:57:05.000Z BP Sitting (Pre-Dialysis) 127/98 mmHg BP Sitting (Post-Dialysis) 121/85 mmHg Concurrent Access: falseAV Graft Upper Arm (Right) Arterial BP Standing (Pre-Dialysis) 128/77 mmHg Sitting Heart Rate Post-Dialysis 91 BPM Sitting Heart Rate Pre-Dialysis 80 BPM Temperatu re Post-Dialysis 98 degF Standing Heart Rate Pre-Dialysis 94 BPM Temperature Pre-Dialysis 97.6 degF January 08, 2024 In-Center Hemodialysis Treatment 0015-74-48N87:41:00.000Z 1732-21-71B96:48:24.000Z BP Sitting (Pre-Dialysis) 141/89 mmHg BP Sitting (Post-Dialysis) 111/95 mmHg Concurrent Access: falseAV Graft Upper Arm (Right) Arterial BP Standing (Pre-Dialysis) 130/75 mmHg BP Standing (P ost-Dialysis) 117/78 mmHg Sitting Heart Rate Pre-Dialysis 96 BPM Sitting Heart Rate Post-Dialysis 80 BPM Standing Heart Rate Pre-Dialysis 85 BPM Standing Heart Rate Post-Dialysis 89 BPM Temperature Pre-Dialysis 98.5 degF Temperature Post -Dialysis 98 degF January 05, 2024 In-Center Hemodialysis Treatment 3045-29-07K79:32:41.000Z 8458-95-28J14:36:36.000Z BP Sitting (Pre-Dialysis) 108/69 mmHg BP Sitting (Post-Dialysis) 118/77 mmHg Concurrent Access: falseAV Graft Upper Arm (Right) Arterial BP Standing (Pre-Dialysis) 90/57 mmHg BP Standing (P ost-Dialysis) 137/97 mmHg Sitting Heart Rate Pre-Dialysis 107 BPM Sitting Heart Rate Post-Dialysis 80 BPM Standing Heart Rate Pre-Dialysis 86 BPM Standing Heart Rate Post-Dialysis 60 BPM Temperature Pre-Dialysis 97.3 degF Temperature Post -Dialysis 97.6 degF January 03, 2024 In-Center Hemodialysis Treatment [id number]:28:07.000Z 1298-44-50H09:26:08.000Z BP Sitting (Pre-Dialysis) 137/83 mmHg BP Sitting (Post-Dialysis) 116/76 mmHg Concurrent Access: falseAV Graft Upper Arm (Right) Arterial Sitting Heart Rate Pre-Dialysis 71 BPM BP Standi ng (Post-Dialysis) 132/70 mmHg Temperature Pre-Dialysis 98 degF Sitting Heart Ra te Post-Dialysis 88 BPM Standing Heart Rate Post-Cuca lysis 120 BPM Temperature Post-Dialysis 98 degF January 01, 2024 In-Center Hemodialysis Treatment 8577-18-56J18:38:24.000Z 2509-26-10X94:34:54.000Z BP Sitting (Pre-Dialysis) 107/64 mmHg BP Sitting (Post-Dialysis) 119/76 mmHg Concurrent Access: falseAV Graft Upper Arm (Right) Arterial Sitting Heart Rate Pre-Dialysis 82 BPM Sitting H eart Rate Post-Dialysis 88 BPM Temperature Pre-Dialysis 98.2 degF Temperature Post -Dialysis 97.5 degF December 29, 2023 In-Center Hemodialysis Treatment 9210-49-92F06:28:14.000Z 2440-28-98G84:33:22.000Z BP Sitting (Pre-Dialysis) 135/109 mmHg BP Sitting (Post-Dialysis) 105/58 mmHg Concurrent Access: falseAV Graft Upper Arm (Right) Arterial BP Standing (Pre-Dialysis) 122/78 mmHg BP Standing (P ost-Dialysis) 118/80 mmHg Sitting Heart Rate Pre-Dialysis 80 BPM Sitting Heart Rate Post-Dialysis 92 BPM Standing Heart Rate Pre-Dialysis 88 BPM Standing Heart Rate Post-Dialysis 90 BPM Temperature Pre-Dialysis 98.2 degF Temperature Post -Dialysis 98.2 degF December 27, 2023 In-Center Hemodialysis Treatment 1107-53-41W00:30:00.000Z 6844-16-78X44:33:37.000Z BP Sitting (Pre-Dialysis) 142/85 mmHg BP Sitting (Post-Dialysis) 122/80 mmHg Concurrent Access: falseAV Graft Upper Arm (Right) Arterial Sitting Heart Rate Pre-Dialysis 81 BPM Sitting H eart Rate Post-Dialysis 86 BPM Temperature Pre-Dialysis 97.6 degF Temperature Post -Dialysis 97.6 degF December 25, 2023 In-Center Hemodialysis Treatment [id number]:22:00.000Z 9548-06-86D97:41:14.000Z BP Sitting (Pre-Dialysis) 141/74 mmHg BP Sitting (Post-Dialysis) 106/92 mmHg Concurrent Access: falseAV Graft Upper Arm (Right) Arterial BP Standing (Pre-Dialysis) 111/69 mmHg BP Standing (P ost-Dialysis) 119/78 mmHg Sitting Heart Rate Pre-Dialysis 77 BPM Sitting Heart Rate Post-Dialysis 93 BPM Standing Heart Rate Pre-Dialysis 82 BPM Standing Heart Rate Post-Dialysis 104 BPM Temperature Pre-Dialysis 97.2 degF Temperature Post -Dialysis 98 degF December 22, 2023 In-Center Hemodialysis Treatment 9670-21-91U99:28:43.000Z 0031-85-34L83:31:43.000Z BP Sitting (Pre-Dialysis) 122/76 mmHg BP Sitting (Post-Dialysis) 113/90 mmHg Concurrent Access: falseAV Graft Upper Arm (Right) Arterial BP Standing (Pre-Dialysis) 114/71 mmHg BP Standing (P ost-Dialysis) 141/66 mmHg Sitting Heart Rate Pre-Dialysis 95 BPM Sitting Heart Rate Post-Dialysis 103 BPM Standing Heart Rate Pre-Dialysis 101 BPM Standing Heart Rate Post-Dialysis 82 BPM Temperature Pre-Dialysis 97.8 degF Temperature Post -Dialysis 97.8 degF December 20, 2023 In-Center Hemodialysis Treatment 5612-29-55B37:20:00.000Z 8124-52-97O79:22:16.000Z BP Sitting (Pre-Dialysis) 120/73 mmHg BP Sitting (Post-Dialysis) 104/73 mmHg Concurrent Access: falseAV Graft Upper Arm (Right) Arterial BP Standing (Pre-Dialysis) 111/62 mmHg BP Standing (P ost-Dialysis) 100/56 mmHg Sitting Heart Rate Pre-Dialysis 93 BPM Sitting Heart Rate Post-Dialysis 97 BPM Standing Heart Rate Pre-Dialysis 96 BPM Standing Heart Rate Post-Dialysis 91 BPM Temperature Pre-Dialysis 98.2 degF Temperature Post -Dialysis 97.6 degF December 18, 2023 In-Center Hemodialysis Treatment 6033-31-62A19:26:05.000Z 4600-57-86Z06:31:40.000Z BP Sitting (Pre-Dialysis) 137/94 mmHg BP Sitting (Post-Dialysis) 143/84 mmHg Concurrent Access: falseAV Graft Upper Arm (Right) Arterial BP Standing (Pre-Dialysis) 116/86 mmHg Sitting Heart Rate Post-Dialysis 81 BPM Sitting Heart Rate Pre-Dialysis 93 BPM Temperatu re Post-Dialysis 98 degF Standing Heart Rate Pre-Dialysis 103 BPM Temperature Pre-Dialysis 97 degF December 15, 2023 In-Center Hemodialysis Treatment 8510-93-29R86:37:30.000Z 7037-70-39X75:40:01.000Z BP Sitting (Pre-Dialysis) 122/79 mmHg BP Sitting (Post-Dialysis) 116/79 mmHg Concurrent Access: falseAV Graft Upper Arm (Right) Arterial Sitting Heart Rate Pre-Dialysis 95 BPM BP Standing (Post-Dialysis) 127/73 mmHg Temperature Pre-Dialysis 98.6 degF Sitting Heart Ra te Post-Dialysis 109 BPM Standing Heart Rate Post-Cuca lysis 126 BPM Temperature Post-Dialysis 97 .2 degF December 13, 2023 In-Center Hemodialysis Treatment [id number]:58:26.000Z 1459-18-67G14:09:02.000Z BP Sitting (Pre-Dialysis) 151/79 mmHg BP Sitting (Post-Dialysis) 113/67 mmHg Concurrent Access: falseAV Graft Upper Arm (Right) Arterial Sitting Heart Rate Pre-Dialysis 81 BPM BP Standing (Post-Dialysis) 130/94 mmHg Temperature Pre-Dialysis 97.7 degF Sitting Heart Ra te Post-Dialysis 119 BPM Standing Heart Rate Post-Cuca lysis 104 BPM Temperature Post-Dialysis 98 degF December 11, 2023 In-Center Hemodialysis Treatment 4967-53-25X21:24:23.000Z 5874-22-80R14:24:53.000Z BP Sitting (Pre-Dialysis) 143/86 mmHg BP Sitting (Post-Dialysis) 148/76 mmHg Concurrent Access: falseAV Graft Upper Arm (Right) Arterial BP Standing (Pre-Dialysis) 134/97 mmHg BP Standing (P ost-Dialysis) 113/69 mmHg Sitting Heart Rate Pre-Dialysis 90 BPM Sitting Heart Rate Post-Dialysis 68 BPM Standing Heart Rate Pre-Dialysis 89 BPM Standing Heart Rate Post-Dialysis 60 BPM Temperature Pre-Dialysis 98.5 degF Temperature Post -Dialysis 97.2 degF December 08, 2023 In-Center Hemodialysis Treatment 6540-90-85U22:28:57.000Z 5710-71-64H65:31:57.000Z BP Sitting (Pre-Dialysis) 111/73 mmHg BP Sitting (Post-Dialysis) 150/74 mmHg Concurrent Access: falseAV Graft Upper Arm (Right) Arterial Sitting Heart Rate Pre-Dialysis 82 BPM BP Standi ng (Post-Dialysis) 112/63 mmHg Temperature Pre-Dialysis 97 degF Sitting Heart Ra te Post-Dialysis 72 BPM Standing Heart Rate Post-Cuca lysis 78 BPM Temperature Post-Dialysis 98 degF December 06, 2023 In-Center Hemodialysis Treatment 6519-12-97K43:26:23.000Z 9066-42-07T30:33:54.000Z BP Sitting (Pre-Dialysis) 136/74 mmHg BP Sitting (Post-Dialysis) 139/99 mmHg Concurrent Access: falseAV Graft Upper Arm (Right) Arterial BP Standing (Pre-Dialysis) 119/77 mmHg Sitting Heart Rate Post-Dialysis 73 BPM Sitting Heart Rate Pre-Dialysis 85 BPM Standing Heart Rate Pre-Dialysis 94 BPM Temperature Pre-Dialysis 97.3 degF December 04, 2023 In-Center Hemodialysis Treatment 0998-49-84R19:27:32.000Z 7329-00-32V88:32:53.000Z BP Sitting (Pre-Dialysis) 116/66 mmHg BP Sitting (Post-Dialysis) 118/77 mmHg Concurrent Access: falseAV Graft Upper Arm (Right) Arterial BP Standing (Pre-Dialysis) 106/70 mmHg Sitting Heart Rate Post-Dialysis 80 BPM Sitting Heart Rate Pre-Dialysis 80 BPM Temperatu re Post-Dialysis 98 degF Standing Heart Rate Pre-Dialysis 82 BPM Temperature Pre-Dialysis 98 degF December 01, 2023 In-Center Hemodialysis Treatment 3010-81-26R50:39:30.000Z 2911-85-10H38:39:31.000Z BP Sitting (Pre-Dialysis) 120/79 mmHg BP Sitting (Post-Dialysis) 107/70 mmHg Concurrent Access: falseAV Graft Upper Arm (Right) Arterial BP Standing (Pre-Dialysis) 98/62 mmHg BP Standing (P ost-Dialysis) 135/78 mmHg Sitting Heart Rate Pre-Dialysis 73 BPM Sitting Heart Rate Post-Dialysis 72 BPM Standing Heart Rate Pre-Dialysis 86 BPM Standing Heart Rate Post-Dialysis 60 BPM Temperature Pre-Dialysis 97.3 degF Temperature Post -Dialysis 98 degF November 29, 2023 In-Center Hemodialysis Treatment 6773-48-37T07:29:57.000Z 2242-09-91E17:35:57.000Z BP Sitting (Pre-Dialysis) 121/71 mmHg BP Sitting (Post-Dialysis) 108/83 mmHg Concurrent Access: falseAV Graft Upper Arm (Right) Arterial Sitting Heart Rate Pre-Dialysis 79 BPM BP Standing (Post-Dialysis) 114/65 mmHg Temperature Pre-Dialysis 97.5 degF Sitting Heart Ra te Post-Dialysis 72 BPM Standing Heart Rate Post-Cuca lysis 62 BPM November 27, 2023 In-Center Hemodialysis Treatment 4950-97-11L77:46:24.000Z 4863-92-81K56:45:20.000Z BP Sitting (Pre-Dialysis) 117/65 mmHg BP Sitting (Post-Dialysis) 96/66 mmHg Concurrent Access: falseAV Graft Upper Arm (Right) Arterial BP Standing (Pre-Dialysis) 111/68 mmHg Sitting Heart Rate Post-Dialysis 80 BPM Sitting Heart Rate Pre-Dialysis 60 BPM Temperatu re Post-Dialysis 98 degF Standing Heart Rate Pre-Dialysis 70 BPM Temperature Pre-Dialysis 98 degF November 24, 2023 In-Center Hemodialysis Treatment [id number]:17:48.000Z 8433-17-17P17:16:19.000Z BP Sitting (Pre-Dialysis) 93/54 mmHg BP Sitting (Post-Dialysis) 108/74 mmHg Concurrent Access: falseAV Graft Upper Arm (Right) Arterial Sitting Heart Rate Pre-Dialysis 80 BPM Sitting H eart Rate Post-Dialysis 90 BPM Temperature Pre-Dialysis 97 degF Temperature Post -Dialysis 98 degF November 22, 2023 In-Center Hemodialysis Treatment 2700-80-30R51:32:07.000Z 2368-98-37N06:30:54.000Z BP Sitting (Pre-Dialysis) 129/69 mmHg BP Sitting (Post-Dialysis) 109/68 mmHg Concurrent Access: falseAV Graft Upper Arm (Right) Arterial Sitting Heart Rate Pre-Dialysis 73 BPM BP Standing (Post-Dialysis) 112/99 mmHg Temperature Pre-Dialysis 97.4 degF Sitting Heart Ra te Post-Dialysis 71 BPM Standing Heart Rate Post-Cuca lysis 80 BPM Temperature Post-Dialysis 98 degF November 20, 2023 In-Center Hemodialysis Treatment 9317-31-28N25:38:26.000Z 0608-59-97V73:33:21.000Z BP Sitting (Pre-Dialysis) 122/78 mmHg BP Sitting (Post-Dialysis) 112/64 mmHg Concurrent Access: falseAV Graft Upper Arm (Right) Arterial BP Standing (Pre-Dialysis) 117/76 mmHg Sitting Heart Rate Post-Dialysis 80 BPM Sitting Heart Rate Pre-Dialysis 80 BPM Temperatu re Post-Dialysis 98 degF Standing Heart Rate Pre-Dialysis 74 BPM Temperature Pre-Dialysis 97.4 degF November 17, 2023 In-Center Hemodialysis Treatment 2499-39-29V01:02:04.000Z 0966-75-78E37:48:28.000Z BP Sitting (Pre-Dialysis) 132/78 mmHg BP Sitting (Post-Dialysis) 124/98 mmHg Concurrent Access: falseAV Graft Upper Arm (Right) Arterial BP Standing (Pre-Dialysis) 133/70 mmHg BP Standing (P ost-Dialysis) 120/96 mmHg Sitting Heart Rate Pre-Dialysis 72 BPM Sitting Heart Rate Post-Dialysis 86 BPM Standing Heart Rate Pre-Dialysis 80 BPM Standing Heart Rate Post-Dialysis 84 BPM Temperature Pre-Dialysis 97.7 degF Temperature Post -Dialysis 98 degF November 15, 2023 In-Center Hemodialysis Treatment 5817-16-79O17:33:00.000Z 8524-04-22A70:26:48.000Z BP Sitting (Pre-Dialysis) 107/68 mmHg BP Sitting (Post-Dialysis) 105/62 mmHg Concurrent Access: falseAV Graft Upper Arm (Right) Arterial Sitting Heart Rate Pre-Dialysis 80 BPM BP Standi ng (Post-Dialysis) 117/91 mmHg Temperature Pre-Dialysis 98 degF Sitting Heart Ra te Post-Dialysis 79 BPM Standing Heart Rate Post-Cuca lysis 79 BPM Temperature Post-Dialysis 97 .8 degF November 13, 2023 In-Center Hemodialysis Treatment 4827-14-52Z04:41:44.000Z 7054-65-41F20:46:45.000Z BP Sitting (Pre-Dialysis) 122/81 mmHg BP Sitting (Post-Dialysis) 132/75 mmHg Concurrent Access: falseAV Graft Upper Arm (Right) Arterial Sitting Heart Rate Pre-Dialysis 88 BPM BP Standi ng (Post-Dialysis) 117/80 mmHg Temperature Pre-Dialysis 98 degF Sitting Heart Ra te Post-Dialysis 82 BPM Standing Heart Rate Post-Cuca lysis 108 BPM Temperature Post-Dialysis 97 .8 degF November 10, 2023 In-Center Hemodialysis Treatment [id number]:32:54.000Z 0164-89-87B18:36:36.000Z BP Sitting (Pre-Dialysis) 128/74 mmHg BP Sitting (Post-Dialysis) 116/71 mmHg Concurrent Access: falseAV Graft Upper Arm (Right) Arterial BP Standing (Pre-Dialysis) 149/79 mmHg Sitting Heart Rate Post-Dialysis 85 BPM Sitting Heart Rate Pre-Dialysis 81 BPM Temperatu re Post-Dialysis 98 degF Standing Heart Rate Pre-Dialysis 92 BPM Temperature Pre-Dialysis 98.2 degF November 01, 2023 In-Center Hemodialysis Treatment 7229-35-17E71:08:32.000Z 1890-51-36W77:21:02.000Z BP Sitting (Pre-Dialysis) 131/82 mmHg BP Sitting (Post-Dialysis) 130/83 mmHg Concurrent Access: falseAV Graft Upper Arm (Right) Arterial BP Standing (Pre-Dialysis) 135/82 mmHg Sitti ng Heart Rate Post-Dialysis 80 BPM Sitting Heart Rate Pre-Dialysis 80 BPM Temperatu re Post-Dialysis 98.5 degF Standing Heart Rate Pre-Dialysis 80 BPM Temperature Pre-Dialysis 98 degF October 31, 2023 Additional Day Of Dialysis Treatment [id number]:42:54.000Z 8681-62-32A14:46:34.000Z BP Sitting (Pre-Dialysis) 129/77 mmHg BP Sitting (Post-Dialysis) 138/85 mmHg Concurrent Access: falseAV Graft Upper Arm (Right) Arterial Sitting Heart Rate Pre-Dialysis 87 BPM BP Standing (Post-Dialysis) 112/67 mmHg Temperature Pre-Dialysis 97.4 degF Sitting Heart Ra te Post-Dialysis 91 BPM Standing Heart Rate Post-Cuca lysis 92 BPM Temperature Post-Dialysis 97 .5 degF October 30, 2023 In-Center Hemodialysis Treatment [id number]:25:12.000Z 8105-89-16F81:23:42.000Z BP Sitting (Pre-Dialysis) 120/76 mmHg BP Sitting (Post-Dialysis) 116/75 mmHg Concurrent Access: falseAV Graft Upper Arm (Right) Arterial Sitting Heart Rate Pre-Dialysis 142 BPM BP Standing (Post-Dialysis) 123/80 mmHg Temperature Pre-Dialysis 97.8 degF Sitting Heart Ra te Post-Dialysis 80 BPM Standing Heart Rate Post-Cuca lysis 80 BPM October 27, 2023 In-Center Hemodialysis Treatment [id number]:52:27.000Z 4171-91-24W17:58:08.000Z BP Sitting (Pre-Dialysis) 124/68 mmHg BP Sitting (Post-Dialysis) 126/74 mmHg Concurrent Access: falseAV Graft Upper Arm (Right) Arterial BP Standing (Pre-Dialysis) 144/59 mmHg Sitting Heart Rate Post-Dialysis 80 BPM Sitting Heart Rate Pre-Dialysis 85 BPM Temperatu re Post-Dialysis 98 degF Standing Heart Rate Pre-Dialysis 86 BPM Temperature Pre-Dialysis 98.3 degF October 25, 2023 In-Center Hemodialysis Treatment 2852-93-57J93:06:25.000Z 4073-00-62J77:07:30.000Z BP Sitting (Pre-Dialysis) 133/82 mmHg BP Sitting (Post-Dialysis) 127/83 mmHg Concurrent Access: falseAV Graft Upper Arm (Right) Arterial BP Standing (Pre-Dialysis) 139/74 mmHg BP Standing (P ost-Dialysis) 138/79 mmHg Sitting Heart Rate Pre-Dialysis 77 BPM Sitting Heart Rate Post-Dialysis 60 BPM Standing Heart Rate Pre-Dialysis 80 BPM Standing Heart Rate Post-Dialysis 120 BPM Temperature Pre-Dialysis 98.3 degF Temperature Post -Dialysis 98 degF October 23, 2023 In-Center Hemodialysis Treatment [id number]:22:41.000Z 5894-90-49H07:59:01.000Z BP Sitting (Pre-Dialysis) 148/100 mmHg BP Sitting (Post-Dialysis) 115/81 mmHg Concurrent Access: falseAV Graft Upper Arm (Right) Arterial BP Standing (Pre-Dialysis) 148/96 mmHg Sitting Heart Rate Post-Dialysis 98 BPM Sitting Heart Rate Pre-Dialysis 74 BPM Temperatu re Post-Dialysis 98 degF Standing Heart Rate Pre-Dialysis 80 BPM Temperature Pre-Dialysis 96.7 degF October 20, 2023 In-Center Hemodialysis Treatment 8622-17-12U41:07:02.000Z 7618-63-38F19:13:23.000Z BP Sitting (Pre-Dialysis) 144/97 mmHg BP Sitting (Post-Dialysis) 105/70 mmHg Concurrent Access: falseAV Graft Upper Arm (Right) Arterial BP Standing (Pre-Dialysis) 123/74 mmHg Sitting Heart Rate Post-Dialysis 81 BPM Sitting Heart Rate Pre-Dialysis 79 BPM Temperatu re Post-Dialysis 98 degF Standing Heart Rate Pre-Dialysis 73 BPM Temperature Pre-Dialysis 97 degF October 18, 2023 In-Center Hemodialysis Treatment [id number]:26:02.000Z [id number]:19:57.000Z BP Sitting (Pre-Dialysis) 137/96 mmHg BP Sitting (Post-Dialysis) 145/101 mmHg Concurrent Access: falseAV Graft Upper Arm (Right) Arterial Sitting Heart Rate Pre-Dialysis 93 BPM BP Standi ng (Post-Dialysis) 100/64 mmHg Temperature Pre-Dialysis 98 degF Sitting Heart Ra te Post-Dialysis 101 BPM Standing Heart Rate Post-Cuca lysis 95 BPM Temperature Post-Dialysis 97 .5 degF October 16, 2023 In-Center Hemodialysis Treatment [id number]:12:24.000Z 6560-96-94Z66:57:24.000Z BP Sitting (Pre-Dialysis) 118/69 mmHg BP Sitting (Post-Dialysis) 110/68 mmHg Concurrent Access: falseAV Graft Upper Arm (Right) Arterial BP Standing (Pre-Dialysis) 123/77 mmHg BP Standing (P ost-Dialysis) 100/64 mmHg Sitting Heart Rate Pre-Dialysis 74 BPM Sitting Heart Rate Post-Dialysis 82 BPM Standing Heart Rate Pre-Dialysis 94 BPM Standing Heart Rate Post-Dialysis 85 BPM Temperature Pre-Dialysis 97.3 degF Temperature Post -Dialysis 97.5 degF October 13, 2023 In-Center Hemodialysis Treatment 7795-04-25T55:33:56.000Z 0918-37-25P41:34:17.000Z BP Sitting (Pre-Dialysis) 106/59 mmHg BP Sitting (Post-Dialysis) 132/97 mmHg Concurrent Access: falseAV Graft Upper Arm (Right) Arterial Sitting Heart Rate Pre-Dialysis 95 BPM BP Standing (Post-Dialysis) 107/56 mmHg Temperature Pre-Dialysis 97.3 degF Sitting Heart Ra te Post-Dialysis 60 BPM Standing Heart Rate Post-Cuca lysis 100 BPM Temperature Post-Dialysis 97 degF October 12, 2023 Sequential Treatment [id number]:56:55.000Z 4336-39-20U95:25:10.000Z BP Sitting (Pre-Dialysis) 127/73 mmHg BP Sitting (Post-Dialysis) 114/62 mmHg Concurrent Access: falseAV Graft Upper Arm (Right) Arterial BP Standing (Pre-Dialysis) 112/61 mmHg BP Standing (P ost-Dialysis) 100/67 mmHg Sitting Heart Rate Pre-Dialysis 80 BPM Sitting Heart Rate Post-Dialysis 96 BPM Standing Heart Rate Pre-Dialysis 96 BPM Standing Heart Rate Post-Dialysis 100 BPM Temperature Pre-Dialysis 97.4 degF Temperature Post -Dialysis 98 degF October 11, 2023 In-Center Hemodialysis Treatment 6639-09-02K54:32:49.000Z 3920-44-95F86:37:10.000Z BP Sitting (Pre-Dialysis) 145/96 mmHg BP Sitting (Post-Dialysis) 119/83 mmHg Concurrent Access: falseAV Graft Upper Arm (Right) Arterial BP Standing (Pre-Dialysis) 133/79 mmHg BP Standing (P ost-Dialysis) 104/71 mmHg Sitting Heart Rate Pre-Dialysis 87 BPM Sitting Heart Rate Post-Dialysis 80 BPM Standing Heart Rate Pre-Dialysis 85 BPM Standing Heart Rate Post-Dialysis 97 BPM Temperature Pre-Dialysis 97.4 degF Temperature Post -Dialysis 97.8 degF October 09, 2023 In-Center Hemodialysis Treatment 2613-26-58M12:54:34.000Z 9648-51-31I63:26:34.000Z BP Sitting (Pre-Dialysis) 133/83 mmHg BP Sitting (Post-Dialysis) 139/94 mmHg Concurrent Access: falseAV Graft Upper Arm (Right) Arterial BP Standing (Pre-Dialysis) 142/82 mmHg BP Standing (P ost-Dialysis) 132/92 mmHg Sitting Heart Rate Pre-Dialysis 88 BPM Sitting Heart Rate Post-Dialysis 80 BPM Standing Heart Rate Pre-Dialysis 91 BPM Standing Heart Rate Post-Dialysis 80 BPM Temperature Pre-Dialysis 98.2 degF Temperature Post -Dialysis 98 degF October 06, 2023 In-Center Hemodialysis Treatment [id number]:33:44.000Z 6763-32-51B51:48:59.000Z BP Sitting (Pre-Dialysis) 140/92 mmHg BP Sitting (Post-Dialysis) 127/77 mmHg Concurrent Access: falseAV Graft Upper Arm (Right) Arterial BP Standing (Pre-Dialysis) 137/93 mmHg BP Standing (P ost-Dialysis) 126/74 mmHg Sitting Heart Rate Pre-Dialysis 91 BPM Sitting Heart Rate Post-Dialysis 98 BPM Standing Heart Rate Pre-Dialysis 88 BPM Standing Heart Rate Post-Dialysis 98 BPM Temperature Pre-Dialysis 98 degF Temperature Post -Dialysis 97.6 degF October 04, 2023 In-Center Hemodialysis Treatment 2718-67-11C42:23:20.000Z 8978-20-18X43:33:50.000Z BP Sitting (Pre-Dialysis) 135/76 mmHg BP Sitting (Post-Dialysis) 134/77 mmHg Concurrent Access: falseAV Graft Upper Arm (Right) Arterial BP Standing (Pre-Dialysis) 145/57 mmHg BP Standing (P ost-Dialysis) 116/78 mmHg Sitting Heart Rate Pre-Dialysis 97 BPM Sitting Heart Rate Post-Dialysis 85 BPM Standing Heart Rate Pre-Dialysis 91 BPM Standing Heart Rate Post-Dialysis 92 BPM Temperature Pre-Dialysis 98.3 degF Temperature Post -Dialysis 97.5 degF October 02, 2023 In-Center Hemodialysis Treatment [id number]:07:54.000Z 6053-80-19F67:18:35.000Z BP Sitting (Pre-Dialysis) 161/75 mmHg BP Sitting (Post-Dialysis) 136/89 mmHg Concurrent Access: falseAV Graft Upper Arm (Right) Arterial Sitting Heart Rate Pre-Dialysis 173 BPM Sitting H eart Rate Post-Dialysis 80 BPM Temperature Pre-Dialysis 97.8 degF September 29, 2023 In-Center Hemodialysis Treatment 5756-16-34T99:31:49.000Z 5170-64-76E27:31:49.000Z BP Sitting (Pre-Dialysis) 138/91 mmHg BP Sitting (Post-Dialysis) 141/83 mmHg Concurrent Access: falseAV Graft Upper Arm (Right) Arterial BP Standing (Pre-Dialysis) 141/94 mmHg Sitti ng Heart Rate Post-Dialysis 87 BPM Sitting Heart Rate Pre-Dialysis 80 BPM Temperatu re Post-Dialysis 98.2 degF Standing Heart Rate Pre-Dialysis 85 BPM Temperature Pre-Dialysis 98 degF September 27, 2023 In-Center Hemodialysis Treatment 2599-84-29O46:08:10.000Z 7947-02-95B98:15:00.000Z BP Sitting (Pre-Dialysis) 137/84 mmHg BP Sitting (Post-Dialysis) 133/85 mmHg Concurrent Access: falseAV Graft Upper Arm (Right) Arterial BP Standing (Pre-Dialysis) 140/82 mmHg BP Standing (P ost-Dialysis) 119/77 mmHg Sitting Heart Rate Pre-Dialysis 80 BPM Sitting Heart Rate Post-Dialysis 70 BPM Standing Heart Rate Pre-Dialysis 99 BPM Standing Heart Rate Post-Dialysis 91 BPM Temperature Pre-Dialysis 97.5 degF Temperature Post -Dialysis 98 degF September 25, 2023 In-Center Hemodialysis Treatment 5108-81-81G98:28:17.000Z 5879-76-57X15:32:47.000Z BP Sitting (Pre-Dialysis) 140/88 mmHg BP Sitting (Post-Dialysis) 122/80 mmHg Concurrent Access: falseAV Graft Upper Arm (Right) Arterial BP Standing (Pre-Dialysis) 134/81 mmHg Sitti ng Heart Rate Post-Dialysis 80 BPM Sitting Heart Rate Pre-Dialysis 80 BPM Temperatu re Post-Dialysis 97.9 degF Standing Heart Rate Pre-Dialysis 80 BPM Temperature Pre-Dialysis 97.6 degF September 22, 2023 In-Center Hemodialysis Treatment 0312-28-54G61:13:00.000Z 5184-21-10V04:20:06.000Z BP Sitting (Pre-Dialysis) 136/82 mmHg BP Sitting (Post-Dialysis) 118/77 mmHg Concurrent Access: falseAV Graft Upper Arm (Right) Arterial BP Standing (Pre-Dialysis) 128/78 mmHg BP Standing (P ost-Dialysis) 108/69 mmHg Sitting Heart Rate Pre-Dialysis 94 BPM Sitting Heart Rate Post-Dialysis 81 BPM Standing Heart Rate Pre-Dialysis 80 BPM Standing Heart Rate Post-Dialysis 95 BPM Temperature Pre-Dialysis 97.9 degF Temperature Post -Dialysis 97.9 degF September 20, 2023 In-Center Hemodialysis Treatment 4117-88-96J93:23:37.000Z 0277-95-89Z35:22:52.000Z BP Sitting (Pre-Dialysis) 109/83 mmHg BP Sitting (Post-Dialysis) 121/79 mmHg Concurrent Access: falseAV Graft Upper Arm (Right) Arterial BP Standing (Pre-Dialysis) 130/80 mmHg BP Standing (P ost-Dialysis) 171/68 mmHg Sitting Heart Rate Pre-Dialysis 89 BPM Sitting Heart Rate Post-Dialysis 91 BPM Standing Heart Rate Pre-Dialysis 85 BPM Standing Heart Rate Post-Dialysis 120 BPM Temperature Pre-Dialysis 97.5 degF Temperature Post -Dialysis 98 degF September 18, 2023 In-Center Hemodialysis Treatment 7955-04-30S34:26:55.000Z 8094-20-52B22:32:41.000Z BP Sitting (Pre-Dialysis) 148/94 mmHg BP Sitting (Post-Dialysis) 126/92 mmHg Concurrent Access: falseAV Graft Upper Arm (Right) Arterial BP Standing (Pre-Dialysis) 138/98 mmHg Sitting Heart Rate Post-Dialysis 87 BPM Sitting Heart Rate Pre-Dialysis 101 BPM Temperatu re Post-Dialysis 98 degF Standing Heart Rate Pre-Dialysis 103 BPM Temperature Pre-Dialysis 97.5 degF September 15, 2023 In-Center Hemodialysis Treatment 1845-62-94E77:25:00.000Z 5093-78-97F33:34:31.000Z BP Sitting (Pre-Dialysis) 130/75 mmHg BP Sitting (Post-Dialysis) 126/92 mmHg Concurrent Access: falseAV Graft Upper Arm (Right) Arterial BP Standing (Pre-Dialysis) 119/80 mmHg Sitting Heart Rate Post-Dialysis 87 BPM Sitting Heart Rate Pre-Dialysis 96 BPM Temperatu re Post-Dialysis 98 degF Standing Heart Rate Pre-Dialysis 108 BPM Temperature Pre-Dialysis 98.6 degF September 13, 2023 In-Center Hemodialysis Treatment 2968-00-20P75:23:47.000Z 2622-46-71L38:38:48.000Z BP Sitting (Pre-Dialysis) 131/96 mmHg BP Sitting (Post-Dialysis) 130/62 mmHg Concurrent Access: falseAV Graft Upper Arm (Right) Arterial BP Standing (Pre-Dialysis) 130/92 mmHg Sitti ng Heart Rate Post-Dialysis 94 BPM Sitting Heart Rate Pre-Dialysis 103 BPM Temperatu re Post-Dialysis 97.8 degF Standing Heart Rate Pre-Dialysis 95 BPM Temperature Pre-Dialysis 98 degF September 11, 2023 In-Center Hemodialysis Treatment 5285-58-51A99:30:28.000Z 9373-99-20H74:44:29.000Z BP Sitting (Pre-Dialysis) 122/78 mmHg BP Sitting (Post-Dialysis) 145/79 mmHg Concurrent Access: falseAV Graft Upper Arm (Right) Arterial BP Standing (Pre-Dialysis) 109/78 mmHg Sitting Heart Rate Post-Dialysis 108 BPM Sitting Heart Rate Pre-Dialysis 117 BPM Standing Heart Rate Pre-Dialysis 120 BPM Temperature Pre-Dialysis 98.2 degF September 08, 2023 In-Center Hemodialysis Treatment 8351-22-66Y43:58:25.000Z 8918-93-96I50:37:25.000Z BP Sitting (Pre-Dialysis) 128/87 mmHg BP Sitting (Post-Dialysis) 141/68 mmHg Concurrent Access: falseAV Graft Upper Arm (Right) Arterial BP Standing (Pre-Dialysis) 134/96 mmHg BP Standing (P ost-Dialysis) 120/76 mmHg Sitting Heart Rate Pre-Dialysis 92 BPM Sitting Heart Rate Post-Dialysis 138 BPM Standing Heart Rate Pre-Dialysis 81 BPM Standing Heart Rate Post-Dialysis 120 BPM Temperature Pre-Dialysis 97.8 degF Temperature Post -Dialysis 98 degF September 06, 2023 In-Center Hemodialysis Treatment 5038-73-40N61:16:58.000Z 3623-64-59X62:17:58.000Z BP Sitting (Pre-Dialysis) 123/76 mmHg BP Sitting (Post-Dialysis) 120/78 mmHg Concurrent Access: falseAV Graft Upper Arm (Right) Arterial BP Standing (Pre-Dialysis) 138/77 mmHg BP Standing (P ost-Dialysis) 127/73 mmHg Sitting Heart Rate Pre-Dialysis 133 BPM Sitting Heart Rate Post-Dialysis 95 BPM Standing Heart Rate Pre-Dialysis 160 BPM Standing Heart Rate Post-Dialysis 108 BPM Temperature Pre-Dialysis 97.4 degF Temperature Post -Dialysis 97.5 degF September 04, 2023 In-Center Hemodialysis Treatment 6428-35-70F77:22:13.000Z 2673-46-27W95:29:49.000Z BP Sitting (Pre-Dialysis) 119/84 mmHg BP Sitting (Post-Dialysis) 109/81 mmHg Concurrent Access: falseAV Graft Upper Arm (Right) Arterial Sitting Heart Rate Pre-Dialysis 157 BPM BP Standi ng (Post-Dialysis) 121/80 mmHg Temperature Pre-Dialysis 98 degF Sitting Heart Ra te Post-Dialysis 120 BPM Standing Heart Rate Post-Cuca lysis 110 BPM Temperature Post-Dialysis 97 .3 degF September 01, 2023 In-Center Hemodialysis Treatment 1970-34-95K75:26:55.000Z 6735-40-70L06:33:16.000Z BP Sitting (Pre-Dialysis) 171/130 mmHg BP Sitting (Post-Dialysis) 118/78 mmHg Concurrent Access: falseAV Graft Upper Arm (Right) Arterial BP Standing (Pre-Dialysis) 163/149 mmHg Sitti ng Heart Rate Post-Dialysis 120 BPM Sitting Heart Rate Pre-Dialysis 100 BPM Temperatu re Post-Dialysis 98 degF Standing Heart Rate Pre-Dialysis 89 BPM Temperature Pre-Dialysis 97.3 degF August 30, 2023 In-Center Hemodialysis Treatment 2205-06-37G87:33:39.000Z 9483-90-29U03:41:10.000Z BP Sitting (Pre-Dialysis) 125/86 mmHg BP Sitting (Post-Dialysis) 120/82 mmHg Concurrent Access: falseAV Graft Upper Arm (Right) Arterial BP Standing (Pre-Dialysis) 122/63 mmHg Sitting Heart Rate Post-Dialysis 93 BPM Sitting Heart Rate Pre-Dialysis 40 BPM Temperatu re Post-Dialysis 98 degF Standing Heart Rate Pre-Dialysis 61 BPM Temperature Pre-Dialysis 97 degF August 28, 2023 In-Center Hemodialysis Treatment 4246-01-11V58:36:31.000Z 4744-26-74I15:33:02.000Z BP Sitting (Pre-Dialysis) 121/88 mmHg BP Sitting (Post-Dialysis) 120/82 mmHg Concurrent Access: falseAV Graft Upper Arm (Right) Arterial BP Standing (Pre-Dialysis) 124/60 mmHg BP Standing (P ost-Dialysis) 119/88 mmHg Sitting Heart Rate Pre-Dialysis 92 BPM Sitting Heart Rate Post-Dialysis 93 BPM Standing Heart Rate Pre-Dialysis 108 BPM Standing Heart Rate Post-Dialysis 59 BPM Temperature Pre-Dialysis 97.7 degF Temperature Post -Dialysis 97.8 degF August 25, 2023 In-Center Hemodialysis Treatment 0809-10-24T20:40:26.000Z 3918-11-38L93:35:27.000Z BP Sitting (Pre-Dialysis) 111/73 mmHg BP Sitting (Post-Dialysis) 142/84 mmHg Concurrent Access: falseAV Graft Upper Arm (Right) Arterial BP Standing (Pre-Dialysis) 102/77 mmHg BP Standing (P ost-Dialysis) 116/79 mmHg Sitting Heart Rate Pre-Dialysis 91 BPM Sitting Heart Rate Post-Dialysis 97 BPM Standing Heart Rate Pre-Dialysis 86 BPM Standing Heart Rate Post-Dialysis 99 BPM Temperature Pre-Dialysis 97.1 degF Temperature Post -Dialysis 97 degF August 23, 2023 In-Center Hemodialysis Treatment 4172-03-42U98:22:20.000Z 8036-38-07P91:25:50.000Z BP Sitting (Pre-Dialysis) 120/78 mmHg BP Sitting (Post-Dialysis) 144/85 mmHg Concurrent Access: falseAV Graft Upper Arm (Right) Arterial BP Standing (Pre-Dialysis) 106/78 mmHg BP Standing (P ost-Dialysis) 110/69 mmHg Sitting Heart Rate Pre-Dialysis 103 BPM Sitting Heart Rate Post-Dialysis 98 BPM Standing Heart Rate Pre-Dialysis 103 BPM Standing Heart Rate Post-Dialysis 80 BPM Temperature Pre-Dialysis 97 degF Temperature Post -Dialysis 97 degF August 21, 2023 In-Center Hemodialysis Treatment 1129-39-57T51:15:51.000Z 5497-33-75P87:08:21.000Z BP Sitting (Pre-Dialysis) 116/64 mmHg BP Sitting (Post-Dialysis) 121/63 mmHg Concurrent Access: falseAV Graft Upper Arm (Right) Arterial Sitting Heart Rate Pre-Dialysis 98 BPM Sitting H eart Rate Post-Dialysis 102 BPM Temperature Pre-Dialysis 97.6 degF Temperature Post -Dialysis 97.5 degF August 16, 2023 In-Center Hemodialysis Treatment 2711-60-99D72:29:33.000Z 4999-21-50N49:22:08.000Z BP Sitting (Pre-Dialysis) 130/82 mmHg BP Sitting (Post-Dialysis) 136/96 mmHg Concurrent Access: falseAV Graft Upper Arm (Right) Arterial BP Standing (Pre-Dialysis) 136/69 mmHg BP Standing (P ost-Dialysis) 148/92 mmHg Sitting Heart Rate Pre-Dialysis 98 BPM Sitting Heart Rate Post-Dialysis 88 BPM Standing Heart Rate Pre-Dialysis 74 BPM Standing Heart Rate Post-Dialysis 92 BPM Temperature Pre-Dialysis 97.2 degF Temperature Post -Dialysis 98 degF August 14, 2023 In-Center Hemodialysis Treatment 1340-59-74D64:54:20.000Z 5691-58-64K48:42:21.000Z BP Sitting (Pre-Dialysis) 126/94 mmHg BP Sitting (Post-Dialysis) 137/85 mmHg Concurrent Access: falseAV Graft Upper Arm (Right) Arterial BP Standing (Pre-Dialysis) 116/82 mmHg Sitting Heart Rate Post-Dialysis 102 BPM Sitting Heart Rate Pre-Dialysis 93 BPM Temperatu re Post-Dialysis 98 degF Standing Heart Rate Pre-Dialysis 102 BPM Temperature Pre-Dialysis 97.6 degF August 11, 2023 In-Center Hemodialysis Treatment 9586-26-31M01:29:35.000Z 0514-57-78G03:24:15.000Z BP Sitting (Pre-Dialysis) 111/67 mmHg BP Sitting (Post-Dialysis) 122/66 mmHg Concurrent Access: falseAV Graft Upper Arm (Right) Arterial BP Standing (Pre-Dialysis) 122/81 mmHg Sitti ng Heart Rate Post-Dialysis 90 BPM Sitting Heart Rate Pre-Dialysis 105 BPM Temperatu re Post-Dialysis 97.6 degF Standing Heart Rate Pre-Dialysis 109 BPM Temperature Pre-Dialysis 98 degF August 09, 2023 In-Center Hemodialysis Treatment 2837-87-25K47:38:23.000Z 1279-00-62T44:35:14.000Z BP Sitting (Pre-Dialysis) 118/80 mmHg BP Sitting (Post-Dialysis) 117/70 mmHg Concurrent Access: falseAV Graft Upper Arm (Right) Arterial Sitting Heart Rate Pre-Dialysis 102 BPM Sitting H eart Rate Post-Dialysis 102 BPM Temperature Pre-Dialysis 98.4 degF Temperature Post -Dialysis 98 degF August 07, 2023 In-Center Hemodialysis Treatment 6163-32-72P83:00:41.000Z 6573-62-03M19:01:12.000Z BP Sitting (Pre-Dialysis) 127/89 mmHg BP Sitting (Post-Dialysis) 129/92 mmHg Concurrent Access: falseAV Graft Upper Arm (Right) Arterial Sitting Heart Rate Pre-Dialysis 102 BPM BP Standi ng (Post-Dialysis) 117/86 mmHg Temperature Pre-Dialysis 98 degF Sitting Heart Ra te Post-Dialysis 98 BPM Standing Heart Rate Post-Cuca lysis 100 BPM Temperature Post-Dialysis 97 .9 degF August 04, 2023 In-Center Hemodialysis Treatment 8592-59-64H45:44:06.000Z 6726-71-50Q48:27:32.000Z BP Sitting (Pre-Dialysis) 120/79 mmHg BP Sitting (Post-Dialysis) 138/93 mmHg Concurrent Access: falseAV Graft Upper Arm (Right) Arterial BP Standing (Pre-Dialysis) 114/64 mmHg BP Standing (P ost-Dialysis) 121/83 mmHg Sitting Heart Rate Pre-Dialysis 141 BPM Sitting Heart Rate Post-Dialysis 138 BPM Standing Heart Rate Pre-Dialysis 200 BPM Standing Heart Rate Post-Dialysis 120 BPM Temperature Pre-Dialysis 97.3 degF Temperature Post -Dialysis 98 degF August 02, 2023 In-Center Hemodialysis Treatment 4636-87-72Z49:02:10.000Z 9064-89-84O95:59:55.000Z BP Sitting (Pre-Dialysis) 114/90 mmHg BP Sitting (Post-Dialysis) 138/79 mmHg Concurrent Access: falseAV Graft Upper Arm (Right) Arterial Sitting Heart Rate Pre-Dialysis 113 BPM BP Standing (Post-Dialysis) 123/81 mmHg Temperature Pre-Dialysis 96.9 degF Sitting Heart Ra te Post-Dialysis 94 BPM Standing Heart Rate Post-Cuca lysis 111 BPM July 31, 2023 In-Center Hemodialysis Treatment 9855-77-47T52:49:23.000Z 7446-76-71H18:40:23.000Z BP Sitting (Pre-Dialysis) 127/93 mmHg BP Sitting (Post-Dialysis) 130/97 mmHg Concurrent Access: falseAV Graft Upper Arm (Right) Arterial Sitting Heart Rate Pre-Dialysis 125 BPM Sitting H eart Rate Post-Dialysis 94 BPM Temperature Pre-Dialysis 97.9 degF Temperature Post -Dialysis 98.3 degF July 28, 2023 In-Center Hemodialysis Treatment 1994-40-46X69:17:30.000Z 3691-08-23R87:08:25.000Z BP Sitting (Pre-Dialysis) 130/105 mmHg BP Sitting (Post-Dialysis) 117/80 mmHg Concurrent Access: falseAV Graft Upper Arm (Right) Arterial BP Standing (Pre-Dialysis) 119/80 mmHg Sitti ng Heart Rate Post-Dialysis 80 BPM Sitting Heart Rate Pre-Dialysis 67 BPM Temperatu re Post-Dialysis 97.5 degF Standing Heart Rate Pre-Dialysis 101 BPM Temperature Pre-Dialysis 97.8 degF July 26, 2023 In-Center Hemodialysis Treatment 0925-65-31O68:27:00.000Z 2930-05-02Y70:27:47.000Z BP Sitting (Pre-Dialysis) 138/92 mmHg BP Sitting (Post-Dialysis) 148/98 mmHg Concurrent Access: falseAV Graft Upper Arm (Right) Arterial Sitting Heart Rate Pre-Dialysis 99 BPM Sitting H eart Rate Post-Dialysis 99 BPM Temperature Pre-Dialysis 97.7 degF Temperature Post -Dialysis 98 degF July 24, 2023 In-Center Hemodialysis Treatment 9524-15-65J59:35:28.000Z 7752-27-18H07:23:14.000Z BP Sitting (Pre-Dialysis) 133/81 mmHg BP Sitting (Post-Dialysis) 120/80 mmHg Concurrent Access: falseAV Graft Upper Arm (Right) Arterial BP Standing (Pre-Dialysis) 125/56 mmHg BP Standing (P ost-Dialysis) 137/99 mmHg Sitting Heart Rate Pre-Dialysis 102 BPM Sitting Heart Rate Post-Dialysis 104 BPM Standing Heart Rate Pre-Dialysis 79 BPM Standing Heart Rate Post-Dialysis 99 BPM Temperature Pre-Dialysis 97.5 degF Temperature Post -Dialysis 98 degF July 21, 2023 In-Center Hemodialysis Treatment 7870-77-37M28:28:58.000Z 8233-80-73T31:21:14.000Z BP Sitting (Pre-Dialysis) 117/78 mmHg BP Sitting (Post-Dialysis) 119/87 mmHg Concurrent Access: falseAV Graft Upper Arm (Right) Arterial BP Standing (Pre-Dialysis) 119/88 mmHg BP Standing (P ost-Dialysis) 122/94 mmHg Sitting Heart Rate Pre-Dialysis 89 BPM Sitting Heart Rate Post-Dialysis 89 BPM Standing Heart Rate Pre-Dialysis 61 BPM Standing Heart Rate Post-Dialysis 85 BPM Temperature Pre-Dialysis 97 degF Temperature Post -Dialysis 97 degF July 19, 2023 In-Center Hemodialysis Treatment 4299-60-88K79:32:13.000Z 0526-11-93Q24:35:23.000Z BP Sitting (Pre-Dialysis) 136/98 mmHg BP Sitting (Post-Dialysis) 157/99 mmHg Concurrent Access: falseAV Graft Upper Arm (Right) Arterial BP Standing (Pre-Dialysis) 130/89 mmHg Sitting Heart Rate Post-Dialysis 80 BPM Sitting Heart Rate Pre-Dialysis 110 BPM Temperatu re Post-Dialysis 98 degF Standing Heart Rate Pre-Dialysis 106 BPM Temperature Pre-Dialysis 97.8 degF July 17, 2023 In-Center Hemodialysis Treatment [id number]:40:50.000Z 8390-53-54Q51:29:55.000Z BP Sitting (Pre-Dialysis) 142/83 mmHg BP Sitting (Post-Dialysis) 131/94 mmHg Concurrent Access: falseAV Graft Upper Arm (Right) Arterial BP Standing (Pre-Dialysis) 116/82 mmHg BP Standing (P ost-Dialysis) 131/99 mmHg Sitting Heart Rate Pre-Dialysis 59 BPM Sitting Heart Rate Post-Dialysis 70 BPM Standing Heart Rate Pre-Dialysis 103 BPM Standing Heart Rate Post-Dialysis 100 BPM Temperature Pre-Dialysis 96.4 degF Temperature Post -Dialysis 98 degF July 14, 2023 In-Center Hemodialysis Treatment 6889-10-72H34:34:17.000Z 1934-57-20Y89:19:18.000Z BP Sitting (Pre-Dialysis) 124/71 mmHg BP Sitting (Post-Dialysis) 133/78 mmHg Concurrent Access: falseAV Graft Upper Arm (Right) Arterial BP Standing (Pre-Dialysis) 106/59 mmHg BP Standing (P ost-Dialysis) 116/65 mmHg Sitting Heart Rate Pre-Dialysis 60 BPM Sitting Heart Rate Post-Dialysis 84 BPM Standing Heart Rate Pre-Dialysis 51 BPM Standing Heart Rate Post-Dialysis 101 BPM Temperature Pre-Dialysis 97.4 degF Temperature Post -Dialysis 97.4 degF July 12, 2023 In-Center Hemodialysis Treatment 6215-48-35R05:30:02.000Z 6038-53-00T65:18:32.000Z BP Sitting (Pre-Dialysis) 127/87 mmHg BP Sitting (Post-Dialysis) 125/82 mmHg Concurrent Access: falseAV Graft Upper Arm (Right) Arterial BP Standing (Pre-Dialysis) 124/88 mmHg BP Standing (P ost-Dialysis) 120/84 mmHg Sitting Heart Rate Pre-Dialysis 94 BPM Sitting Heart Rate Post-Dialysis 100 BPM Standing Heart Rate Pre-Dialysis 102 BPM Standing Heart Rate Post-Dialysis 94 BPM Temperature Pre-Dialysis 98.5 degF Temperature Post -Dialysis 97.3 degF July 10, 2023 In-Center Hemodialysis Treatment 4284-29-24T55:30:17.000Z 1318-46-25P87:30:23.000Z BP Sitting (Pre-Dialysis) 134/76 mmHg BP Sitting (Post-Dialysis) 130/94 mmHg Concurrent Access: falseAV Graft Upper Arm (Right) Arterial Sitting Heart Rate Pre-Dialysis 109 BPM Sitting H eart Rate Post-Dialysis 38 BPM Temperature Pre-Dialysis 97.9 degF Temperature Post -Dialysis 97.5 degF July 07, 2023 In-Center Hemodialysis Treatment 8351-21-19A45:27:19.000Z 8674-60-29R25:19:15.000Z BP Sitting (Pre-Dialysis) 118/95 mmHg BP Sitting (Post-Dialysis) 125/56 mmHg Concurrent Access: falseAV Graft Upper Arm (Right) Arterial BP Standing (Pre-Dialysis) 121/72 mmHg BP Standing (P ost-Dialysis) 117/72 mmHg Sitting Heart Rate Pre-Dialysis 79 BPM Sitting Heart Rate Post-Dialysis 90 BPM Standing Heart Rate Pre-Dialysis 70 BPM Standing Heart Rate Post-Dialysis 90 BPM Temperature Pre-Dialysis 97.2 degF Temperature Post -Dialysis 97.5 degF July 05, 2023 In-Center Hemodialysis Treatment 5253-28-09T64:17:52.000Z 4011-65-36G06:13:22.000Z BP Sitting (Pre-Dialysis) 119/80 mmHg BP Sitting (Post-Dialysis) 139/92 mmHg Concurrent Access: falseAV Graft Upper Arm (Right) Arterial BP Standing (Pre-Dialysis) 121/83 mmHg Sitti ng Heart Rate Post-Dialysis 139 BPM Sitting Heart Rate Pre-Dialysis 100 BPM Temperatu re Post-Dialysis 98.3 degF Standing Heart Rate Pre-Dialysis 101 BPM Temperature Pre-Dialysis 97.2 degF July 03, 2023 In-Center Hemodialysis Treatment 2307-59-46X94:19:21.000Z 3747-11-19J24:17:02.000Z BP Sitting (Pre-Dialysis) 128/58 mmHg BP Sitting (Post-Dialysis) 136/87 mmHg Concurrent Access: falseAV Graft Upper Arm (Right) Arterial BP Standing (Pre-Dialysis) 127/79 mmHg BP Standing (P ost-Dialysis) 116/60 mmHg Sitting Heart Rate Pre-Dialysis 78 BPM Sitting Heart Rate Post-Dialysis 60 BPM Standing Heart Rate Pre-Dialysis 96 BPM Standing Heart Rate Post-Dialysis 59 BPM Temperature Pre-Dialysis 97.4 degF Temperature Post -Dialysis 97.5 degF June 30, 2023 In-Center Hemodialysis Treatment 9196-71-44N63:28:12.000Z 1814-69-25L30:21:43.000Z BP Sitting (Pre-Dialysis) 128/88 mmHg BP Sitting (Post-Dialysis) 148/110 mmHg Concurrent Access: falseAV Graft Upper Arm (Right) Arterial BP Standing (Pre-Dialysis) 122/81 mmHg BP Standing (P ost-Dialysis) 116/72 mmHg Sitting Heart Rate Pre-Dialysis 97 BPM Sitting Heart Rate Post-Dialysis 84 BPM Standing Heart Rate Pre-Dialysis 100 BPM Standing Heart Rate Post-Dialysis 103 BPM Temperature Pre-Dialysis 97.3 degF Temperature Post -Dialysis 97.4 degF June 28, 2023 In-Center Hemodialysis Treatment 4925-30-49Z89:27:26.000Z 2026-22-30J68:11:57.000Z BP Sitting (Pre-Dialysis) 133/97 mmHg BP Sitting (Post-Dialysis) 148/84 mmHg Concurrent Access: falseAV Graft Upper Arm (Right) Arterial BP Standing (Pre-Dialysis) 136/87 mmHg Sitti ng Heart Rate Post-Dialysis 88 BPM Sitting Heart Rate Pre-Dialysis 93 BPM Temperatu re Post-Dialysis 97.5 degF Standing Heart Rate Pre-Dialysis 61 BPM Temperature Pre-Dialysis 97.2 degF June 26, 2023 In-Center Hemodialysis Treatment [id number]:24:29.000Z 7611-55-37H55:21:00.000Z BP Sitting (Pre-Dialysis) 138/96 mmHg BP Sitting (Post-Dialysis) 157/68 mmHg Concurrent Access: falseAV Graft Upper Arm (Right) Arterial BP Standing (Pre-Dialysis) 144/93 mmHg BP Standing (P ost-Dialysis) 133/103 mmHg Sitting Heart Rate Pre-Dialysis 68 BPM Sitting Heart Rate Post-Dialysis 61 BPM Standing Heart Rate Pre-Dialysis 99 BPM Standing Heart Rate Post-Dialysis 105 BPM Temperature Pre-Dialysis 97.5 degF Temperature Post -Dialysis 98.3 degF June 23, 2023 In-Center Hemodialysis Treatment [id number]:22:15.000Z 6066-28-54P77:57:50.000Z BP Sitting (Pre-Dialysis) 119/87 mmHg BP Sitting (Post-Dialysis) 118/78 mmHg Concurrent Access: falseAV Graft Upper Arm (Right) Arterial BP Standing (Pre-Dialysis) 133/86 mmHg BP Standing (P ost-Dialysis) 104/66 mmHg Sitting Heart Rate Pre-Dialysis 78 BPM Sitting Heart Rate Post-Dialysis 51 BPM Standing Heart Rate Pre-Dialysis 109 BPM Standing Heart Rate Post-Dialysis 68 BPM Temperature Pre-Dialysis 97.1 degF Temperature Post -Dialysis 97.8 degF June 21, 2023 In-Center Hemodialysis Treatment [id number]:22:13.000Z [id number]:13:19.000Z BP Sitting (Pre-Dialysis) 155/94 mmHg BP Sitting (Post-Dialysis) 138/82 mmHg Concurrent Access: falseAV Graft Upper Arm (Right) Arterial BP Standing (Pre-Dialysis) 158/98 mmHg BP Standing (P ost-Dialysis) 139/73 mmHg Sitting Heart Rate Pre-Dialysis 94 BPM Sitting Heart Rate Post-Dialysis 74 BPM Standing Heart Rate Pre-Dialysis 99 BPM Standing Heart Rate Post-Dialysis 103 BPM Temperature Pre-Dialysis 97.8 degF Temperature Post -Dialysis 98 degF June 19, 2023 In-Center Hemodialysis Treatment [id number]:40:38.000Z 7743-68-92B90:18:38.000Z BP Sitting (Pre-Dialysis) 133/96 mmHg BP Sitting (Post-Dialysis) 129/70 mmHg Concurrent Access: falseAV Graft Upper Arm (Right) Arterial BP Standing (Pre-Dialysis) 147/88 mmHg BP Standing (P ost-Dialysis) 128/74 mmHg Sitting Heart Rate Pre-Dialysis 108 BPM Sitting Heart Rate Post-Dialysis 80 BPM Standing Heart Rate Pre-Dialysis 103 BPM Standing Heart Rate Post-Dialysis 93 BPM Temperature Pre-Dialysis 97.6 degF Temperature Post -Dialysis 97.6 degF June 16, 2023 In-Center Hemodialysis Treatment [id number]:48:00.000Z 3502-37-15H63:14:57.000Z BP Sitting (Pre-Dialysis) 142/89 mmHg BP Sitting (Post-Dialysis) 140/72 mmHg Concurrent Access: falseAV Graft Upper Arm (Right) Arterial BP Standing (Pre-Dialysis) 137/80 mmHg BP Standing (P ost-Dialysis) 101/80 mmHg Sitting Heart Rate Pre-Dialysis 81 BPM Sitting Heart Rate Post-Dialysis 62 BPM Standing Heart Rate Pre-Dialysis 93 BPM Standing Heart Rate Post-Dialysis 81 BPM Temperature Pre-Dialysis 97.3 degF June 14, 2023 In-Center Hemodialysis Treatment [id number]:40:43.000Z [id number]:29:44.000Z BP Sitting (Pre-Dialysis) 148/82 mmHg BP Sitting (Post-Dialysis) 140/82 mmHg Concurrent Access: falseAV Graft Upper Arm (Right) Arterial BP Standing (Pre-Dialysis) 138/82 mmHg BP Standing (P ost-Dialysis) 122/77 mmHg Sitting Heart Rate Pre-Dialysis 99 BPM Sitting Heart Rate Post-Dialysis 92 BPM Standing Heart Rate Pre-Dialysis 95 BPM Standing Heart Rate Post-Dialysis 96 BPM Temperature Pre-Dialysis 98.2 degF Temperature Post -Dialysis 97.7 degF June 12, 2023 In-Center Hemodialysis Treatment [id number]:44:07.000Z 9349-55-05S02:25:13.000Z BP Sitting (Pre-Dialysis) 149/83 mmHg BP Sitting (Post-Dialysis) 172/64 mmHg Concurrent Access: falseAV Graft Upper Arm (Right) Arterial BP Standing (Pre-Dialysis) 141/84 mmHg Sitti ng Heart Rate Post-Dialysis 95 BPM Sitting Heart Rate Pre-Dialysis 100 BPM Temperatu re Post-Dialysis 97.4 degF Standing Heart Rate Pre-Dialysis 94 BPM Temperature Pre-Dialysis 98 degF June 07, 2023 In-Center Hemodialysis Treatment [id number]:03:30.000Z [id number]:49:51.000Z BP Sitting (Pre-Dialysis) 147/99 mmHg BP Sitting (Post-Dialysis) 146/95 mmHg Concurrent Access: falseAV Graft Upper Arm (Right) Arterial BP Standing (Pre-Dialysis) 139/88 mmHg Sitting Heart Rate Post-Dialysis 86 BPM Sitting Heart Rate Pre-Dialysis 105 BPM Standing Heart Rate Pre-Dialysis 120 BPM Temperature Pre-Dialysis 97.6 degF June 05, 2023 In-Center Hemodialysis Treatment [id number]:34:27.000Z [id number]:25:57.000Z BP Sitting (Pre-Dialysis) 143/96 mmHg BP Sitting (Post-Dialysis) 149/86 mmHg Concurrent Access: falseAV Graft Upper Arm (Right) Arterial BP Standing (Pre-Dialysis) 144/91 mmHg BP Standing (P ost-Dialysis) 148/94 mmHg Sitting Heart Rate Pre-Dialysis 102 BPM Sitting Heart Rate Post-Dialysis 86 BPM Standing Heart Rate Pre-Dialysis 97 BPM Standing Heart Rate Post-Dialysis 100 BPM Temperature Pre-Dialysis 97.8 degF Temperature Post -Dialysis 98 degF June 02, 2023 In-Center Hemodialysis Treatment [id number]:50:00.000Z [id number]:36:40.000Z BP Sitting (Pre-Dialysis) 181/106 mmHg BP Sitting (Post-Dialysis) 152/99 mmHg Concurrent Access: falseAV Graft Upper Arm (Right) Arterial BP Standing (Pre-Dialysis) 158/105 mmHg BP Standing (P ost-Dialysis) 133/88 mmHg Sitting Heart Rate Pre-Dialysis 98 BPM Sitting Heart Rate Post-Dialysis 94 BPM Standing Heart Rate Pre-Dialysis 95 BPM Standing Heart Rate Post-Dialysis 102 BPM Temperature Pre-Dialysis 97.7 degF Temperature Post -Dialysis 97.9 degF May 31, 2023 In-Center Hemodialysis Treatment [id number]:56:08.000Z 7079-77-12L51:43:58.000Z BP Sitting (Pre-Dialysis) 165/100 mmHg BP Sitting (Post-Dialysis) 137/87 mmHg Concurrent Access: falseAV Graft Upper Arm (Right) Arterial BP Standing (Pre-Dialysis) 168/105 mmHg BP Standing (P ost-Dialysis) 126/79 mmHg Sitting Heart Rate Pre-Dialysis 96 BPM Sitting Heart Rate Post-Dialysis 89 BPM Standing Heart Rate Pre-Dialysis 100 BPM Standing Heart Rate Post-Dialysis 93 BPM Temperature Pre-Dialysis 98.4 degF May 21, 2023 In-Center Hemodialysis Treatment [id number]:10:21.000Z [id number]:02:26.000Z BP Sitting (Pre-Dialysis) 162/100 mmHg BP Sitting (Post-Dialysis) 147/97 mmHg Concurrent Access: falseAV Graft Upper Arm (Right) Arterial BP Standing (Pre-Dialysis) 172/65 mmHg BP Standing (P ost-Dialysis) 148/77 mmHg Sitting Heart Rate Pre-Dialysis 97 BPM Sitting Heart Rate Post-Dialysis 94 BPM Standing Heart Rate Pre-Dialysis 73 BPM Standing Heart Rate Post-Dialysis 94 BPM Temperature Pre-Dialysis 97.4 degF Temperature Post -Dialysis 97.7 degF May 19, 2023 In-Center Hemodialysis Treatment [id number]:38:52.000Z 4508-87-77I66:33:03.000Z BP Sitting (Pre-Dialysis) 168/112 mmHg BP Sitting (Post-Dialysis) 150/92 mmHg Concurrent Access: falseAV Graft Upper Arm (Right) Arterial Sitting Heart Rate Pre-Dialysis 91 BPM BP Standing (Post-Dialysis) 139/78 mmHg Temperature Pre-Dialysis 97.8 degF Sitting Heart Ra te Post-Dialysis 87 BPM Standing Heart Rate Post-Cuca lysis 94 BPM Temperature Post-Dialysis 97 .5 degF May 17, 2023 In-Center Hemodialysis Treatment [id number]:50:56.000Z [id number]:46:52.000Z BP Sitting (Pre-Dialysis) 141/94 mmHg BP Sitting (Post-Dialysis) 144/92 mmHg Concurrent Access: falseAV Graft Upper Arm (Right) Arterial BP Standing (Pre-Dialysis) 149/95 mmHg BP Standing (P ost-Dialysis) 137/63 mmHg Sitting Heart Rate Pre-Dialysis 78 BPM Sitting Heart Rate Post-Dialysis 80 BPM Standing Heart Rate Pre-Dialysis 80 BPM Standing Heart Rate Post-Dialysis 88 BPM Temperature Pre-Dialysis 98.3 degF Temperature Post -Dialysis 97.5 degF May 14, 2023 In-Center Hemodialysis Treatment [id number]:12:00.000Z [id number]:02:31.000Z BP Sitting (Pre-Dialysis) 150/79 mmHg BP Sitting (Post-Dialysis) 144/76 mmHg Concurrent Access: falseAV Graft Upper Arm (Right) Arterial BP Standing (Pre-Dialysis) 150/101 mmHg Sitti ng Heart Rate Post-Dialysis 90 BPM Sitting Heart Rate Pre-Dialysis 89 BPM Temperatu re Post-Dialysis 97.3 degF Standing Heart Rate Pre-Dialysis 87 BPM Temperature Pre-Dialysis 98.7 degF May 12, 2023 In-Center Hemodialysis Treatment 8869-79-15R41:32:26.000Z 8310-78-73N48:19:46.000Z BP Sitting (Pre-Dialysis) 151/85 mmHg BP Sitting (Post-Dialysis) 124/86 mmHg Concurrent Access: falseAV Graft Upper Arm (Right) Arterial BP Standing (Pre-Dialysis) 136/92 mmHg BP Standing (P ost-Dialysis) 108/63 mmHg Sitting Heart Rate Pre-Dialysis 81 BPM Sitting Heart Rate Post-Dialysis 87 BPM Standing Heart Rate Pre-Dialysis 78 BPM Standing Heart Rate Post-Dialysis 104 BPM Temperature Pre-Dialysis 97.2 degF May 10, 2023 In-Center Hemodialysis Treatment [id number]:28:04.000Z [id number]:14:04.000Z BP Sitting (Pre-Dialysis) 133/99 mmHg BP Sitting (Post-Dialysis) 139/92 mmHg Concurrent Access: falseAV Graft Upper Arm (Right) Arterial BP Standing (Pre-Dialysis) 141/91 mmHg BP Standing (P ost-Dialysis) 100/55 mmHg Sitting Heart Rate Pre-Dialysis 59 BPM Sitting Heart Rate Post-Dialysis 94 BPM Standing Heart Rate Pre-Dialysis 86 BPM Standing Heart Rate Post-Dialysis 79 BPM Temperature Pre-Dialysis 96.1 degF Temperature Post -Dialysis 97.4 degF May 08, 2023 In-Center Hemodialysis Treatment [id number]:56:57.000Z 9523-62-97T49:39:28.000Z BP Sitting (Pre-Dialysis) 150/96 mmHg BP Sitting (Post-Dialysis) 149/93 mmHg Concurrent Access: falseAV Graft Upper Arm (Right) Arterial BP Standing (Pre-Dialysis) 167/98 mmHg Sitti ng Heart Rate Post-Dialysis 81 BPM Sitting Heart Rate Pre-Dialysis 82 BPM Temperatu re Post-Dialysis 97.2 degF Standing Heart Rate Pre-Dialysis 81 BPM Temperature Pre-Dialysis 96.8 degF May 05, 2023 In-Center Hemodialysis Treatment 5091-03-60J41:21:03.000Z [id number]:05:33.000Z BP Sitting (Pre-Dialysis) 141/99 mmHg BP Sitting (Post-Dialysis) 141/84 mmHg Concurrent Access: falseAV Graft Upper Arm (Right) Arterial BP Standing (Pre-Dialysis) 140/89 mmHg BP Standing (P ost-Dialysis) 120/73 mmHg Sitting Heart Rate Pre-Dialysis 90 BPM Sitting Heart Rate Post-Dialysis 80 BPM Standing Heart Rate Pre-Dialysis 91 BPM Standing Heart Rate Post-Dialysis 81 BPM Temperature Pre-Dialysis 97.8 degF Temperature Post -Dialysis 97.4 degF May 03, 2023 In-Center Hemodialysis Treatment [id number]:46:56.000Z [id number]:50:16.000Z BP Sitting (Pre-Dialysis) 141/97 mmHg BP Sitting (Post-Dialysis) 145/70 mmHg Concurrent Access: falseAV Graft Upper Arm (Right) Arterial Sitting Heart Rate Pre-Dialysis 91 BPM Sitting H eart Rate Post-Dialysis 78 BPM Temperature Pre-Dialysis 98 degF Temperature Post -Dialysis 97.9 degF May 01, 2023 In-Center Hemodialysis Treatment [id number]:01:11.000Z [id number]:51:02.000Z BP Sitting (Pre-Dialysis) 148/97 mmHg BP Sitting (Post-Dialysis) 148/81 mmHg Concurrent Access: falseAV Graft Upper Arm (Right) Arterial BP Standing (Pre-Dialysis) 131/84 mmHg BP Standing (P ost-Dialysis) 119/76 mmHg Sitting Heart Rate Pre-Dialysis 80 BPM Sitting Heart Rate Post-Dialysis 74 BPM Standing Heart Rate Pre-Dialysis 80 BPM Standing Heart Rate Post-Dialysis 80 BPM Temperature Pre-Dialysis 98.1 degF Temperature Post -Dialysis 98.8 degF April 28, 2023 In-Center Hemodialysis Treatment [id number]:43:10.000Z 5201-73-97E06:18:10.000Z BP Sitting (Pre-Dialysis) 133/67 mmHg BP Sitting (Post-Dialysis) 123/84 mmHg Concurrent Access: falseAV Graft Upper Arm (Right) Arterial Sitting Heart Rate Pre-Dialysis 92 BPM BP Standing (Post-Dialysis) 104/59 mmHg Temperature Pre-Dialysis 97.4 degF Sitting Heart Ra te Post-Dialysis 91 BPM Standing Heart Rate Post-Cuca lysis 89 BPM Temperature Post-Dialysis 98 degF April 26, 2023 In-Center Hemodialysis Treatment [id number]:46:00.000Z 4287-91-30W95:29:31.000Z BP Sitting (Pre-Dialysis) 157/98 mmHg BP Sitting (Post-Dialysis) 130/94 mmHg Concurrent Access: falseAV Graft Upper Arm (Right) Arterial BP Standing (Pre-Dialysis) 151/100 mmHg BP Standing (P ost-Dialysis) 119/78 mmHg Sitting Heart Rate Pre-Dialysis 95 BPM Sitting Heart Rate Post-Dialysis 80 BPM Standing Heart Rate Pre-Dialysis 101 BPM Standing Heart Rate Post-Dialysis 60 BPM Temperature Pre-Dialysis 97.2 degF April 24, 2023 In-Center Hemodialysis Treatment 8327-06-36H45:56:21.000Z [id number]:48:21.000Z BP Sitting (Pre-Dialysis) 147/99 mmHg BP Sitting (Post-Dialysis) 130/94 mmHg Concurrent Access: falseAV Graft Upper Arm (Right) Arterial BP Standing (Pre-Dialysis) 147/95 mmHg BP Standing (P ost-Dialysis) 119/78 mmHg Sitting Heart Rate Pre-Dialysis 80 BPM Sitting Heart Rate Post-Dialysis 80 BPM Standing Heart Rate Pre-Dialysis 80 BPM Standing Heart Rate Post-Dialysis 60 BPM Temperature Pre-Dialysis 98 degF Temperature Post -Dialysis 97.3 degF April 21, 2023 In-Center Hemodialysis Treatment 5437-93-27F11:37:00.000Z 7987-30-34E82:39:29.000Z BP Sitting (Pre-Dialysis) 155/85 mmHg BP Sitting (Post-Dialysis) 150/95 mmHg Concurrent Access: falseAV Graft Upper Arm (Right) Arterial BP Standing (Pre-Dialysis) 144/71 mmHg BP Standing (P ost-Dialysis) 141/89 mmHg Sitting Heart Rate Pre-Dialysis 80 BPM Sitting Heart Rate Post-Dialysis 73 BPM Standing Heart Rate Pre-Dialysis 85 BPM Standing Heart Rate Post-Dialysis 94 BPM Temperature Pre-Dialysis 97.2 degF April 19, 2023 In-Center Hemodialysis Treatment [id number]:28:00.000Z 3941-38-87Y58:26:21.000Z BP Sitting (Pre-Dialysis) 138/88 mmHg BP Sitting (Post-Dialysis) 156/89 mmHg Concurrent Access: falseAV Graft Upper Arm (Right) Arterial Sitting Heart Rate Pre-Dialysis 85 BPM BP Standing (Post-Dialysis) 140/80 mmHg Temperature Pre-Dialysis 98.2 degF Sitting Heart Ra te Post-Dialysis 79 BPM Standing Heart Rate Post-Cuca lysis 79 BPM Temperature Post-Dialysis 97 .2 degF April 14, 2023 In-Center Hemodialysis Treatment 9847-94-50C10:44:00.000Z [id number]:32:40.000Z BP Sitting (Pre-Dialysis) 163/107 mmHg BP Sitting (Post-Dialysis) 135/80 mmHg Concurrent Access: falseAV Graft Upper Arm (Right) Arterial BP Standing (Pre-Dialysis) 147/101 mmHg BP Standing (P ost-Dialysis) 122/46 mmHg Sitting Heart Rate Pre-Dialysis 92 BPM Sitting Heart Rate Post-Dialysis 85 BPM Standing Heart Rate Pre-Dialysis 92 BPM Standing Heart Rate Post-Dialysis 95 BPM Temperature Pre-Dialysis 97.2 degF Temperature Post -Dialysis 98.2 degF April 11, 2023 In-Center Hemodialysis Treatment [id number]:46:55.000Z 8707-61-06P31:20:16.000Z BP Sitting (Pre-Dialysis) 160/73 mmHg BP Sitting (Post-Dialysis) 165/107 mmHg Concurrent Access: falseAV Graft Upper Arm (Right) Arterial BP Standing (Pre-Dialysis) 165/101 mmHg Sitti ng Heart Rate Post-Dialysis 88 BPM Sitting Heart Rate Pre-Dialysis 92 BPM Temperatu re Post-Dialysis 98 degF Standing Heart Rate Pre-Dialysis 95 BPM Temperature Pre-Dialysis 98.1 degF April 10, 2023 In-Center Hemodialysis Treatment 4661-33-26G06:22:00.000Z 7238-42-36T29:15:48.000Z BP Sitting (Pre-Dialysis) 164/89 mmHg BP Sitting (Post-Dialysis) 151/103 mmHg Concurrent Access: falseAV Graft Upper Arm (Right) Arterial Sitting Heart Rate Pre-Dialysis 104 BPM Sitting H eart Rate Post-Dialysis 77 BPM Temperature Pre-Dialysis 98 degF Temperature Post -Dialysis 98.7 degF April 07, 2023 In-Center Hemodialysis Treatment 1810-27-59L97:36:27.000Z 0026-05-05X15:27:57.000Z BP Sitting (Pre-Dialysis) 137/74 mmHg BP Sitting (Post-Dialysis) 135/87 mmHg Concurrent Access: falseAV Graft Upper Arm (Right) Arterial BP Standing (Pre-Dialysis) 156/96 mmHg Sitting Heart Rate Post-Dialysis 74 BPM Sitting Heart Rate Pre-Dialysis 91 BPM Temperatu re Post-Dialysis 98 degF Standing Heart Rate Pre-Dialysis 101 BPM Temperature Pre-Dialysis 98 degF April 05, 2023 In-Center Hemodialysis Treatment 1306-48-15O28:03:47.000Z [id number]:57:18.000Z BP Sitting (Pre-Dialysis) 167/85 mmHg BP Sitting (Post-Dialysis) 159/102 mmHg Concurrent Access: falseAV Graft Upper Arm (Right) Arterial BP Standing (Pre-Dialysis) 166/88 mmHg BP Standing (P ost-Dialysis) 118/79 mmHg Sitting Heart Rate Pre-Dialysis 94 BPM Sitting Heart Rate Post-Dialysis 104 BPM Standing Heart Rate Pre-Dialysis 100 BPM Standing Heart Rate Post-Dialysis 93 BPM Temperature Pre-Dialysis 97.5 degF Temperature Post -Dialysis 97.7 degF April 03, 2023 In-Center Hemodialysis Treatment [id number]:45:42.000Z 5081-75-07T23:01:22.000Z BP Sitting (Pre-Dialysis) 161/98 mmHg BP Sitting (Post-Dialysis) 117/88 mmHg Concurrent Access: falseAV Graft Upper Arm (Right) Arterial BP Standing (Pre-Dialysis) 164/100 mmHg Sitti ng Heart Rate Post-Dialysis 81 BPM Sitting Heart Rate Pre-Dialysis 93 BPM Temperatu re Post-Dialysis 98 degF Standing Heart Rate Pre-Dialysis 99 BPM Temperature Pre-Dialysis 98 degF March 31, 2023 In-Center Hemodialysis Treatment 1373-36-55A79:47:12.000Z 9223-75-74B34:38:28.000Z BP Sitting (Pre-Dialysis) 157/85 mmHg BP Sitting (Post-Dialysis) 144/98 mmHg Concurrent Access: falseAV Graft Upper Arm (Right) Arterial BP Standing (Pre-Dialysis) 170/98 mmHg BP Standing (P ost-Dialysis) 148/85 mmHg Sitting Heart Rate Pre-Dialysis 92 BPM Sitting Heart Rate Post-Dialysis 80 BPM Standing Heart Rate Pre-Dialysis 93 BPM Standing Heart Rate Post-Dialysis 110 BPM Temperature Pre-Dialysis 97.9 degF Temperature Post -Dialysis 97.7 degF March 29, 2023 In-Center Hemodialysis Treatment 7578-73-81V48:45:00.000Z 9932-92-56J64:54:09.000Z BP Sitting (Pre-Dialysis) 151/87 mmHg BP Sitting (Post-Dialysis) 139/92 mmHg Concurrent Access: falseAV Graft Upper Arm (Right) Arterial BP Standing (Pre-Dialysis) 150/103 mmHg BP Standing (P ost-Dialysis) 141/76 mmHg Sitting Heart Rate Pre-Dialysis 90 BPM Sitting Heart Rate Post-Dialysis 80 BPM Standing Heart Rate Pre-Dialysis 92 BPM Standing Heart Rate Post-Dialysis 94 BPM Temperature Pre-Dialysis 98.4 degF Temperature Post -Dialysis 97.5 degF March 27, 2023 In-Center Hemodialysis Treatment [id number]:57:44.000Z 5246-04-62C21:29:50.000Z BP Sitting (Pre-Dialysis) 143/93 mmHg BP Sitting (Post-Dialysis) 125/78 mmHg Concurrent Access: falseAV Graft Upper Arm (Right) Arterial BP Standing (Pre-Dialysis) 141/86 mmHg Sitti ng Heart Rate Post-Dialysis 81 BPM Sitting Heart Rate Pre-Dialysis 86 BPM Temperatu re Post-Dialysis 97.6 degF Standing Heart Rate Pre-Dialysis 79 BPM Temperature Pre-Dialysis 97.4 degF March 24, 2023 In-Center Hemodialysis Treatment 6768-22-35Y15:42:00.000Z 0069-84-62S03:20:20.000Z BP Sitting (Pre-Dialysis) 154/95 mmHg BP Sitting (Post-Dialysis) 132/80 mmHg Concurrent Access: falseAV Graft Upper Arm (Right) Arterial BP Standing (Pre-Dialysis) 160/100 mmHg BP Standing (P ost-Dialysis) 128/81 mmHg Sitting Heart Rate Pre-Dialysis 79 BPM Sitting Heart Rate Post-Dialysis 81 BPM Standing Heart Rate Pre-Dialysis 85 BPM Standing Heart Rate Post-Dialysis 80 BPM Temperature Pre-Dialysis 97.9 degF Temperature Post -Dialysis 98 degF March 22, 2023 In-Center Hemodialysis Treatment 2803-12-46K57:50:42.000Z 3014-43-67E64:04:58.000Z BP Sitting (Pre-Dialysis) 150/85 mmHg BP Sitting (Post-Dialysis) 144/98 mmHg Concurrent Access: falseAV Graft Upper Arm (Right) Arterial BP Standing (Pre-Dialysis) 141/89 mmHg BP Standing (P ost-Dialysis) 135/84 mmHg Sitting Heart Rate Pre-Dialysis 81 BPM Sitting Heart Rate Post-Dialysis 74 BPM Standing Heart Rate Pre-Dialysis 82 BPM Standing Heart Rate Post-Dialysis 82 BPM Temperature Pre-Dialysis 98 degF Temperature Post -Dialysis 98 degF March 20, 2023 In-Center Hemodialysis Treatment 6798-76-84P70:01:00.000Z 1603-87-99K22:49:57.000Z BP Sitting (Pre-Dialysis) 168/83 mmHg BP Sitting (Post-Dialysis) 148/95 mmHg Concurrent Access: falseAV Graft Upper Arm (Right) Arterial BP Standing (Pre-Dialysis) 186/100 mmHg Sitti ng Heart Rate Post-Dialysis 80 BPM Sitting Heart Rate Pre-Dialysis 93 BPM Temperatu re Post-Dialysis 98 degF Standing Heart Rate Pre-Dialysis 86 BPM Temperature Pre-Dialysis 97.6 degF March 17, 2023 In-Center Hemodialysis Treatment 0470-06-28Z83:44:41.000Z 1433-92-26K28:17:42.000Z BP Sitting (Pre-Dialysis) 149/83 mmHg BP Sitting (Post-Dialysis) 138/81 mmHg Concurrent Access: falseAV Graft Upper Arm (Right) Arterial BP Standing (Pre-Dialysis) 140/77 mmHg Sitti ng Heart Rate Post-Dialysis 95 BPM Sitting Heart Rate Pre-Dialysis 82 BPM Temperatu re Post-Dialysis 98.7 degF Standing Heart Rate Pre-Dialysis 81 BPM Temperature Pre-Dialysis 97.8 degF March 15, 2023 In-Center Hemodialysis Treatment [id number]:47:18.000Z 6932-84-25E68:38:48.000Z BP Sitting (Pre-Dialysis) 158/96 mmHg BP Sitting (Post-Dialysis) 154/96 mmHg Concurrent Access: falseAV Graft Upper Arm (Right) Arterial BP Standing (Pre-Dialysis) 149/94 mmHg BP Standing (P ost-Dialysis) 138/85 mmHg Sitting Heart Rate Pre-Dialysis 95 BPM Sitting Heart Rate Post-Dialysis 81 BPM Standing Heart Rate Pre-Dialysis 96 BPM Standing Heart Rate Post-Dialysis 101 BPM Temperature Pre-Dialysis 98.3 degF Temperature Post -Dialysis 98 degF March 13, 2023 In-Center Hemodialysis Treatment [id number]:49:23.000Z 1159-62-18C26:40:29.000Z BP Sitting (Pre-Dialysis) 148/95 mmHg BP Sitting (Post-Dialysis) 145/85 mmHg Concurrent Access: falseAV Graft Upper Arm (Right) Arterial BP Standing (Pre-Dialysis) 149/81 mmHg Sitti ng Heart Rate Post-Dialysis 79 BPM Sitting Heart Rate Pre-Dialysis 87 BPM Temperatu re Post-Dialysis 97.9 degF Standing Heart Rate Pre-Dialysis 86 BPM Temperature Pre-Dialysis 97.6 degF March 10, 2023 In-Center Hemodialysis Treatment 5974-57-31Q08:00:00.000Z 8681-16-98U18:45:52.000Z BP Sitting (Pre-Dialysis) 143/74 mmHg BP Sitting (Post-Dialysis) 130/70 mmHg Concurrent Access: falseAV Graft Upper Arm (Right) Arterial BP Standing (Pre-Dialysis) 138/84 mmHg BP Standing (P ost-Dialysis) 113/70 mmHg Sitting Heart Rate Pre-Dialysis 94 BPM Sitting Heart Rate Post-Dialysis 80 BPM Standing Heart Rate Pre-Dialysis 88 BPM Standing Heart Rate Post-Dialysis 103 BPM Temperature Pre-Dialysis 97.7 degF Temperature Post -Dialysis 97.9 degF March 08, 2023 In-Center Hemodialysis Treatment [id number]:46:41.000Z 9897-65-82D98:35:16.000Z BP Sitting (Pre-Dialysis) 164/88 mmHg BP Sitting (Post-Dialysis) 120/89 mmHg Concurrent Access: falseAV Graft Upper Arm (Right) Arterial BP Standing (Pre-Dialysis) 163/93 mmHg BP Standing (P ost-Dialysis) 125/43 mmHg Sitting Heart Rate Pre-Dialysis 89 BPM Sitting Heart Rate Post-Dialysis 81 BPM Standing Heart Rate Pre-Dialysis 86 BPM Standing Heart Rate Post-Dialysis 92 BPM Temperature Pre-Dialysis 97.8 degF Temperature Post -Dialysis 97.2 degF March 06, 2023 In-Center Hemodialysis Treatment [id number]:57:38.000Z 1876-40-16D72:51:43.000Z BP Sitting (Pre-Dialysis) 159/99 mmHg BP Sitting (Post-Dialysis) 146/95 mmHg Concurrent Access: falseAV Graft Upper Arm (Right) Arterial BP Standing (Pre-Dialysis) 159/95 mmHg BP Standing (P ost-Dialysis) 122/83 mmHg Sitting Heart Rate Pre-Dialysis 91 BPM Sitting Heart Rate Post-Dialysis 80 BPM Standing Heart Rate Pre-Dialysis 91 BPM Standing Heart Rate Post-Dialysis 94 BPM Temperature Pre-Dialysis 98.3 degF Temperature Post -Dialysis 97.8 degF March 03, 2023 In-Center Hemodialysis Treatment [id number]:51:15.000Z 6214-92-46O77:42:45.000Z BP Sitting (Pre-Dialysis) 144/79 mmHg BP Sitting (Post-Dialysis) 137/88 mmHg Concurrent Access: falseAV Graft Upper Arm (Right) Arterial BP Standing (Pre-Dialysis) 140/74 mmHg BP Standing (P ost-Dialysis) 123/76 mmHg Sitting Heart Rate Pre-Dialysis 77 BPM Sitting Heart Rate Post-Dialysis 81 BPM Standing Heart Rate Pre-Dialysis 72 BPM Standing Heart Rate Post-Dialysis 79 BPM Temperature Pre-Dialysis 97.1 degF Temperature Post -Dialysis 97.7 degF March 01, 2023 In-Center Hemodialysis Treatment 5938-50-57I90:51:30.000Z 8096-37-78L47:39:31.000Z BP Sitting (Pre-Dialysis) 128/72 mmHg BP Sitting (Post-Dialysis) 132/84 mmHg Concurrent Access: falseAV Graft Upper Arm (Right) Arterial BP Standing (Pre-Dialysis) 122/78 mmHg Sitting Heart Rate Post-Dialysis 74 BPM Sitting Heart Rate Pre-Dialysis 80 BPM Temperatu re Post-Dialysis 98 degF Standing Heart Rate Pre-Dialysis 80 BPM Temperature Pre-Dialysis 98.3 degF February 27, 2023 In-Center Hemodialysis Treatment 5800-50-93S63:03:33.000Z 6038-06-87Q23:54:58.000Z BP Sitting (Pre-Dialysis) 136/77 mmHg BP Sitting (Post-Dialysis) 165/96 mmHg Concurrent Access: falseAV Graft Upper Arm (Right) Arterial BP Standing (Pre-Dialysis) 137/84 mmHg BP Standing (P ost-Dialysis) 138/85 mmHg Sitting Heart Rate Pre-Dialysis 82 BPM Sitting Heart Rate Post-Dialysis 66 BPM Standing Heart Rate Pre-Dialysis 80 BPM Standing Heart Rate Post-Dialysis 80 BPM Temperature Pre-Dialysis 97.6 degF Temperature Post -Dialysis 98 degF February 24, 2023 In-Center Hemodialysis Treatment [id number]:42:51.000Z [id number]:34:22.000Z BP Sitting (Pre-Dialysis) 166/87 mmHg BP Sitting (Post-Dialysis) 128/75 mmHg Concurrent Access: falseAV Graft Upper Arm (Right) Arterial BP Standing (Pre-Dialysis) 167/92 mmHg BP Standing (P ost-Dialysis) 102/75 mmHg Sitting Heart Rate Pre-Dialysis 80 BPM Sitting Heart Rate Post-Dialysis 91 BPM Standing Heart Rate Pre-Dialysis 100 BPM Standing Heart Rate Post-Dialysis 85 BPM Temperature Pre-Dialysis 97.5 degF Temperature Post -Dialysis 98 degF February 22, 2023 In-Center Hemodialysis Treatment [id number]:47:03.000Z [id number]:23:43.000Z BP Sitting (Pre-Dialysis) 140/73 mmHg BP Sitting (Post-Dialysis) 144/85 mmHg Concurrent Access: falseAV Graft Upper Arm (Right) Arterial BP Standing (Pre-Dialysis) 137/87 mmHg BP Standing (P ost-Dialysis) 124/87 mmHg Sitting Heart Rate Pre-Dialysis 102 BPM Sitting Heart Rate Post-Dialysis 88 BPM Standing Heart Rate Pre-Dialysis 94 BPM Standing Heart Rate Post-Dialysis 85 BPM Temperature Pre-Dialysis 97.3 degF Temperature Post -Dialysis 97.9 degF February 20, 2023 In-Center Hemodialysis Treatment [id number]:01:22.000Z 1095-03-41H80:34:23.000Z BP Sitting (Pre-Dialysis) 138/87 mmHg BP Sitting (Post-Dialysis) 127/79 mmHg Concurrent Access: falseAV Graft Upper Arm (Right) Arterial Sitting Heart Rate Pre-Dialysis 79 BPM BP Standing (Post-Dialysis) 117/78 mmHg Temperature Pre-Dialysis 97.3 degF Sitting Heart Ra te Post-Dialysis 79 BPM Standing Heart Rate Post-Cuca lysis 99 BPM Temperature Post-Dialysis 97 .9 degF February 17, 2023 In-Center Hemodialysis Treatment [id number]:56:53.000Z 7793-29-34I81:12:43.000Z BP Sitting (Pre-Dialysis) 168/63 mmHg BP Sitting (Post-Dialysis) 155/72 mmHg Concurrent Access: falseAV Graft Upper Arm (Right) Arterial BP Standing (Pre-Dialysis) 154/96 mmHg Sitti ng Heart Rate Post-Dialysis 79 BPM Sitting Heart Rate Pre-Dialysis 78 BPM Temperatu re Post-Dialysis 98.2 degF Standing Heart Rate Pre-Dialysis 81 BPM Temperature Pre-Dialysis 98.4 degF February 15, 2023 In-Center Hemodialysis Treatment [id number]:00:00.000Z [id number]:28:26.000Z BP Sitting (Pre-Dialysis) 150/85 mmHg BP Sitting (Post-Dialysis) 155/92 mmHg Concurrent Access: falseAV Graft Upper Arm (Right) Arterial BP Standing (Pre-Dialysis) 140/83 mmHg BP Standing (P ost-Dialysis) 133/84 mmHg Sitting Heart Rate Pre-Dialysis 88 BPM Sitting Heart Rate Post-Dialysis 80 BPM Standing Heart Rate Pre-Dialysis 88 BPM Standing Heart Rate Post-Dialysis 81 BPM Temperature Pre-Dialysis 97.3 degF Temperature Post -Dialysis 97.9 degF February 13, 2023 In-Center Hemodialysis Treatment [id number]:42:26.000Z [id number]:17:47.000Z BP Sitting (Pre-Dialysis) 151/111 mmHg BP Sitting (Post-Dialysis) 155/92 mmHg Concurrent Access: falseAV Graft Upper Arm (Right) Arterial BP Standing (Pre-Dialysis) 150/91 mmHg Sitti ng Heart Rate Post-Dialysis 79 BPM Sitting Heart Rate Pre-Dialysis 98 BPM Temperatu re Post-Dialysis 98.2 degF Standing Heart Rate Pre-Dialysis 88 BPM Temperature Pre-Dialysis 97.2 degF February 10, 2023 In-Center Hemodialysis Treatment 2503-07-09U10:00:21.000Z 1508-20-74V03:18:16.000Z BP Sitting (Pre-Dialysis) 123/74 mmHg BP Sitting (Post-Dialysis) 144/75 mmHg Concurrent Access: falseAV Graft Upper Arm (Right) Arterial BP Standing (Pre-Dialysis) 150/88 mmHg Sitti ng Heart Rate Post-Dialysis 77 BPM Sitting Heart Rate Pre-Dialysis 79 BPM Temperatu re Post-Dialysis 98.1 degF Standing Heart Rate Pre-Dialysis 88 BPM Temperature Pre-Dialysis 98.3 degF February 06, 2023 In-Center Hemodialysis Treatment [id number]:59:48.000Z [id number]:21:48.000Z BP Sitting (Pre-Dialysis) 151/83 mmHg BP Sitting (Post-Dialysis) 141/81 mmHg Concurrent Access: falseAV Graft Upper Arm (Right) Arterial BP Standing (Pre-Dialysis) 144/83 mmHg Sitting Heart Rate Post-Dialysis 80 BPM Sitting Heart Rate Pre-Dialysis 77 BPM Temperatu re Post-Dialysis 98 degF Standing Heart Rate Pre-Dialysis 77 BPM Temperature Pre-Dialysis 98.5 degF February 03, 2023 In-Center Hemodialysis Treatment 1995-24-28R49:01:32.000Z 4667-21-13M67:31:33.000Z BP Sitting (Pre-Dialysis) 156/98 mmHg BP Sitting (Post-Dialysis) 164/92 mmHg Concurrent Access: falseAV Graft Upper Arm (Right) Arterial BP Standing (Pre-Dialysis) 145/95 mmHg Sitting Heart Rate Post-Dialysis 90 BPM Sitting Heart Rate Pre-Dialysis 88 BPM Temperatu re Post-Dialysis 98 degF Standing Heart Rate Pre-Dialysis 78 BPM Temperature Pre-Dialysis 97.2 degF February 01, 2023 In-Center Hemodialysis Treatment 5255-86-29S47:55:00.000Z 6217-55-71Y62:30:06.000Z BP Sitting (Pre-Dialysis) 145/99 mmHg BP Sitting (Post-Dialysis) 147/97 mmHg Concurrent Access: falseAV Graft Upper Arm (Right) Arterial BP Standing (Pre-Dialysis) 148/99 mmHg Sitti ng Heart Rate Post-Dialysis 82 BPM Sitting Heart Rate Pre-Dialysis 87 BPM Temperatu re Post-Dialysis 97.8 degF Standing Heart Rate Pre-Dialysis 86 BPM Temperature Pre-Dialysis 98.1 degF January 30, 2023 In-Center Hemodialysis Treatment [id number]:51:19.000Z 7572-70-74Y37:28:20.000Z BP Sitting (Pre-Dialysis) 156/100 mmHg BP Sitting (Post-Dialysis) 167/109 mmHg Concurrent Access: falseAV Graft Upper Arm (Right) Arterial BP Standing (Pre-Dialysis) 152/103 mmHg BP Standing (P ost-Dialysis) 145/96 mmHg Sitting Heart Rate Pre-Dialysis 80 BPM Sitting Heart Rate Post-Dialysis 70 BPM Standing Heart Rate Pre-Dialysis 85 BPM Standing Heart Rate Post-Dialysis 80 BPM Temperature Pre-Dialysis 98.3 degF Temperature Post -Dialysis 97.5 degF January 27, 2023 In-Center Hemodialysis Treatment [id number]:53:00.000Z [id number]:16:16.000Z BP Sitting (Pre-Dialysis) 170/85 mmHg BP Sitting (Post-Dialysis) 165/93 mmHg Concurrent Access: falseAV Graft Upper Arm (Right) Arterial BP Standing (Pre-Dialysis) 164/96 mmHg BP Standing (P ost-Dialysis) 150/97 mmHg Sitting Heart Rate Pre-Dialysis 91 BPM Sitting Heart Rate Post-Dialysis 80 BPM Standing Heart Rate Pre-Dialysis 89 BPM Standing Heart Rate Post-Dialysis 87 BPM Temperature Pre-Dialysis 98.2 degF Temperature Post -Dialysis 98.3 degF January 25, 2023 In-Center Hemodialysis Treatment [id number]:46:37.000Z 9879-50-62Q33:21:37.000Z BP Sitting (Pre-Dialysis) 166/100 mmHg BP Sitting (Post-Dialysis) 165/93 mmHg Concurrent Access: falseAV Graft Upper Arm (Right) Arterial BP Standing (Pre-Dialysis) 152/99 mmHg BP Standing (P ost-Dialysis) 148/88 mmHg Sitting Heart Rate Pre-Dialysis 96 BPM Sitting Heart Rate Post-Dialysis 80 BPM Standing Heart Rate Pre-Dialysis 89 BPM Standing Heart Rate Post-Dialysis 85 BPM Temperature Pre-Dialysis 97.2 degF January 23, 2023 In-Center Hemodialysis Treatment [id number]:04:27.000Z 0698-67-11J57:19:22.000Z BP Sitting (Pre-Dialysis) 141/85 mmHg BP Sitting (Post-Dialysis) 137/77 mmHg Concurrent Access: falseAV Graft Upper Arm (Right) Arterial BP Standing (Pre-Dialysis) 147/97 mmHg Sitti ng Heart Rate Post-Dialysis 67 BPM Sitting Heart Rate Pre-Dialysis 80 BPM Temperatu re Post-Dialysis 97.5 degF Standing Heart Rate Pre-Dialysis 80 BPM Temperature Pre-Dialysis 98.4 degF January 20, 2023 In-Center Hemodialysis Treatment 0539-41-15Z56:25:53.000Z 0895-34-79P34:58:24.000Z BP Sitting (Pre-Dialysis) 151/94 mmHg BP Sitting (Post-Dialysis) 158/95 mmHg Concurrent Access: falseAV Graft Upper Arm (Right) Arterial BP Standing (Pre-Dialysis) 160/96 mmHg Sitti ng Heart Rate Post-Dialysis 79 BPM Sitting Heart Rate Pre-Dialysis 95 BPM Temperatu re Post-Dialysis 97.6 degF Standing Heart Rate Pre-Dialysis 99 BPM Temperature Pre-Dialysis 97 degF January 18, 2023 In-Center Hemodialysis Treatment 1932-69-30M36:52:31.000Z 2649-47-13O20:26:02.000Z BP Sitting (Pre-Dialysis) 152/99 mmHg BP Sitting (Post-Dialysis) 136/87 mmHg Concurrent Access: falseAV Graft Upper Arm (Right) Arterial BP Standing (Pre-Dialysis) 152/97 mmHg Sitti ng Heart Rate Post-Dialysis 80 BPM Sitting Heart Rate Pre-Dialysis 80 BPM Temperatu re Post-Dialysis 97.8 degF Standing Heart Rate Pre-Dialysis 80 BPM Temperature Pre-Dialysis 98 degF January 16, 2023 In-Center Hemodialysis Treatment [id number]:05:33.000Z 9307-50-39A43:19:29.000Z BP Sitting (Pre-Dialysis) 151/98 mmHg BP Sitting (Post-Dialysis) 150/99 mmHg Concurrent Access: falseAV Graft Upper Arm (Right) Arterial BP Standing (Pre-Dialysis) 157/100 mmHg BP Standing (P ost-Dialysis) 146/95 mmHg Sitting Heart Rate Pre-Dialysis 87 BPM Sitting Heart Rate Post-Dialysis 80 BPM Standing Heart Rate Pre-Dialysis 88 BPM Standing Heart Rate Post-Dialysis 88 BPM Temperature Pre-Dialysis 98 degF Temperature Post -Dialysis 98 degF January 13, 2023 In-Center Hemodialysis Treatment 6750-94-96Z35:00:00.000Z 8415-87-88T95:42:02.000Z BP Sitting (Pre-Dialysis) 164/100 mmHg BP Sitting (Post-Dialysis) 142/73 mmHg Concurrent Access: falseAV Graft Upper Arm (Right) Arterial BP Standing (Pre-Dialysis) 161/105 mmHg BP Standing (P ost-Dialysis) 127/82 mmHg Sitting Heart Rate Pre-Dialysis 88 BPM Sitting Heart Rate Post-Dialysis 80 BPM Standing Heart Rate Pre-Dialysis 85 BPM Standing Heart Rate Post-Dialysis 94 BPM Temperature Pre-Dialysis 98 degF Temperature Post -Dialysis 97.9 degF January 11, 2023 In-Center Hemodialysis Treatment [id number]:44:39.000Z 9254-28-06V25:17:59.000Z BP Sitting (Pre-Dialysis) 143/100 mmHg BP Sitting (Post-Dialysis) 158/88 mmHg Concurrent Access: falseAV Graft Upper Arm (Right) Arterial BP Standing (Pre-Dialysis) 162/95 mmHg Sitti ng Heart Rate Post-Dialysis 85 BPM Sitting Heart Rate Pre-Dialysis 85 BPM Temperatu re Post-Dialysis 97.6 degF Standing Heart Rate Pre-Dialysis 89 BPM Temperature Pre-Dialysis 98 degF January 09, 2023 In-Center Hemodialysis Treatment 9982-26-62P02:45:42.000Z 9449-53-08A32:19:13.000Z BP Sitting (Pre-Dialysis) 159/106 mmHg BP Sitting (Post-Dialysis) 152/97 mmHg Concurrent Access: falseAV Graft Upper Arm (Right) Arterial BP Standing (Pre-Dialysis) 150/96 mmHg Sitting Heart Rate Post-Dialysis 86 BPM Sitting Heart Rate Pre-Dialysis 93 BPM Standing Heart Rate Pre-Dialysis 96 BPM Temperature Pre-Dialysis 98.3 degF January 06, 2023 In-Center Hemodialysis Treatment 4602-53-29W60:10:24.000Z 0155-86-70N86:49:25.000Z BP Sitting (Pre-Dialysis) 139/77 mmHg BP Sitting (Post-Dialysis) 151/98 mmHg Concurrent Access: falseAV Graft Upper Arm (Right) Arterial BP Standing (Pre-Dialysis) 147/95 mmHg BP Standing (P ost-Dialysis) 138/82 mmHg Sitting Heart Rate Pre-Dialysis 85 BPM Sitting Heart Rate Post-Dialysis 80 BPM Standing Heart Rate Pre-Dialysis 87 BPM Standing Heart Rate Post-Dialysis 90 BPM Temperature Pre-Dialysis 98 degF Temperature Post -Dialysis 98.2 degF January 04, 2023 In-Center Hemodialysis Treatment 7777-19-25C83:55:00.000Z 1525-79-83U68:18:15.000Z BP Sitting (Pre-Dialysis) 160/98 mmHg BP Sitting (Post-Dialysis) 165/99 mmHg Concurrent Access: falseAV Graft Upper Arm (Right) Arterial BP Standing (Pre-Dialysis) 164/112 mmHg BP Standing (P ost-Dialysis) 149/96 mmHg Sitting Heart Rate Pre-Dialysis 93 BPM Sitting Heart Rate Post-Dialysis 80 BPM Standing Heart Rate Pre-Dialysis 83 BPM Standing Heart Rate Post-Dialysis 82 BPM Temperature Pre-Dialysis 98.3 degF Temperature Post -Dialysis 98.4 degF January 02, 2023 In-Center Hemodialysis Treatment [id number]:22:38.000Z 5366-25-43K42:56:09.000Z BP Sitting (Pre-Dialysis) 151/112 mmHg BP Sitting (Post-Dialysis) 162/95 mmHg Concurrent Access: falseAV Graft Upper Arm (Right) Arterial BP Standing (Pre-Dialysis) 161/105 mmHg BP Standing (P ost-Dialysis) 137/95 mmHg Sitting Heart Rate Pre-Dialysis 90 BPM Sitting Heart Rate Post-Dialysis 79 BPM Standing Heart Rate Pre-Dialysis 120 BPM Standing Heart Rate Post-Dialysis 87 BPM Temperature Pre-Dialysis 98 degF Temperature Post -Dialysis 98.3 degF December 30, 2022 In-Center Hemodialysis Treatment [id number]:51:06.000Z 9476-77-73P15:23:12.000Z BP Sitting (Pre-Dialysis) 140/85 mmHg BP Sitting (Post-Dialysis) 125/70 mmHg Concurrent Access: falseAV Graft Upper Arm (Right) Arterial BP Standing (Pre-Dialysis) 140/65 mmHg BP Standing (P ost-Dialysis) 123/77 mmHg Sitting Heart Rate Pre-Dialysis 73 BPM Sitting Heart Rate Post-Dialysis 88 BPM Standing Heart Rate Pre-Dialysis 86 BPM Standing Heart Rate Post-Dialysis 90 BPM Temperature Pre-Dialysis 98.2 degF Temperature Post -Dialysis 98 degF December 28, 2022 In-Center Hemodialysis Treatment [id number]:49:24.000Z 7656-82-98T69:23:14.000Z BP Sitting (Pre-Dialysis) 148/88 mmHg BP Sitting (Post-Dialysis) 167/104 mmHg Concurrent Access: falseAV Graft Upper Arm (Right) Arterial BP Standing (Pre-Dialysis) 149/87 mmHg BP Standing (P ost-Dialysis) 136/87 mmHg Sitting Heart Rate Pre-Dialysis 80 BPM Sitting Heart Rate Post-Dialysis 73 BPM Standing Heart Rate Pre-Dialysis 109 BPM Standing Heart Rate Post-Dialysis 90 BPM Temperature Pre-Dialysis 98 degF Temperature Post -Dialysis 98.7 degF December 26, 2022 In-Center Hemodialysis Treatment [id number]:51:19.000Z 2815-59-31W89:23:50.000Z BP Sitting (Pre-Dialysis) 173/95 mmHg BP Sitting (Post-Dialysis) 157/107 mmHg Concurrent Access: falseAV Graft Upper Arm (Right) Arterial BP Standing (Pre-Dialysis) 163/77 mmHg Sitti ng Heart Rate Post-Dialysis 70 BPM Sitting Heart Rate Pre-Dialysis 94 BPM Temperatu re Post-Dialysis 98.6 degF Standing Heart Rate Pre-Dialysis 96 BPM Temperature Pre-Dialysis 97.6 degF December 23, 2022 In-Center Hemodialysis Treatment [id number]:49:52.000Z 7836-27-66L78:31:16.000Z BP Sitting (Pre-Dialysis) 156/87 mmHg BP Sitting (Post-Dialysis) 150/97 mmHg Concurrent Access: falseAV Graft Upper Arm (Right) Arterial BP Standing (Pre-Dialysis) 158/98 mmHg Sitting Heart Rate Post-Dialysis 79 BPM Sitting Heart Rate Pre-Dialysis 88 BPM Temperatu re Post-Dialysis 98 degF Standing Heart Rate Pre-Dialysis 92 BPM Temperature Pre-Dialysis 98 degF December 21, 2022 In-Center Hemodialysis Treatment 2652-53-26M86:56:02.000Z 5049-21-08J58:43:54.000Z BP Sitting (Pre-Dialysis) 149/57 mmHg BP Sitting (Post-Dialysis) 142/86 mmHg Concurrent Access: falseAV Graft Upper Arm (Right) Arterial BP Standing (Pre-Dialysis) 170/99 mmHg Sitting Heart Rate Post-Dialysis 82 BPM Sitting Heart Rate Pre-Dialysis 81 BPM Temperatu re Post-Dialysis 98 degF Standing Heart Rate Pre-Dialysis 91 BPM Temperature Pre-Dialysis 97.6 degF December 19, 2022 In-Center Hemodialysis Treatment [id number]:57:40.000Z 0544-58-74D10:38:46.000Z BP Sitting (Pre-Dialysis) 161/85 mmHg BP Sitting (Post-Dialysis) 151/99 mmHg Concurrent Access: falseAV Graft Upper Arm (Right) Arterial BP Standing (Pre-Dialysis) 171/97 mmHg BP Standing (P ost-Dialysis) 138/89 mmHg Sitting Heart Rate Pre-Dialysis 90 BPM Sitting Heart Rate Post-Dialysis 79 BPM Standing Heart Rate Pre-Dialysis 92 BPM Standing Heart Rate Post-Dialysis 81 BPM Temperature Pre-Dialysis 98 degF Temperature Post -Dialysis 97.7 degF December 16, 2022 In-Center Hemodialysis Treatment 4404-63-27F08:18:46.000Z 7774-98-92Q77:02:46.000Z BP Sitting (Pre-Dialysis) 150/115 mmHg BP Sitting (Post-Dialysis) 168/97 mmHg Concurrent Access: falseAV Graft Upper Arm (Right) Arterial BP Standing (Pre-Dialysis) 128/111 mmHg BP Standing (P ost-Dialysis) 146/86 mmHg Sitting Heart Rate Pre-Dialysis 96 BPM Sitting Heart Rate Post-Dialysis 80 BPM Standing Heart Rate Pre-Dialysis 96 BPM Standing Heart Rate Post-Dialysis 80 BPM Temperature Pre-Dialysis 98 degF Temperature Post -Dialysis 98 degF December 14, 2022 In-Center Hemodialysis Treatment [id number]:20:13.000Z [id number]:52:19.000Z BP Sitting (Pre-Dialysis) 159/100 mmHg BP Sitting (Post-Dialysis) 161/80 mmHg Concurrent Access: falseAV Graft Upper Arm (Right) Arterial BP Standing (Pre-Dialysis) 176/99 mmHg BP Standing (P ost-Dialysis) 142/85 mmHg Sitting Heart Rate Pre-Dialysis 87 BPM Sitting Heart Rate Post-Dialysis 80 BPM Standing Heart Rate Pre-Dialysis 88 BPM Standing Heart Rate Post-Dialysis 80 BPM Temperature Pre-Dialysis 98 degF Temperature Post -Dialysis 98 degF December 12, 2022 In-Center Hemodialysis Treatment 0602-12-03H31:48:38.000Z 0586-81-18B61:54:08.000Z BP Sitting (Pre-Dialysis) 141/116 mmHg BP Sitting (Post-Dialysis) 150/85 mmHg Concurrent Access: falseAV Graft Upper Arm (Right) Arterial BP Standing (Pre-Dialysis) 183/120 mmHg Sitti ng Heart Rate Post-Dialysis 94 BPM Sitting Heart Rate Pre-Dialysis 105 BPM Temperatu re Post-Dialysis 98 degF Standing Heart Rate Pre-Dialysis 100 BPM Temperature Pre-Dialysis 97.5 degF December 09, 2022 In-Center Hemodialysis Treatment 0949-85-71M60:00:00.000Z 8568-59-31B83:37:14.000Z BP Sitting (Pre-Dialysis) 122/82 mmHg BP Sitting (Post-Dialysis) 141/81 mmHg Concurrent Access: falseAV Graft Upper Arm (Right) Arterial BP Standing (Pre-Dialysis) 122/82 mmHg Sitting Heart Rate Post-Dialysis 80 BPM Sitting Heart Rate Pre-Dialysis 90 BPM Temperatu re Post-Dialysis 98 degF Standing Heart Rate Pre-Dialysis 80 BPM Temperature Pre-Dialysis 98.6 degF December 07, 2022 In-Center Hemodialysis Treatment 6664-75-09E63:49:45.000Z 5035-97-76F77:15:51.000Z BP Sitting (Pre-Dialysis) 145/84 mmHg BP Sitting (Post-Dialysis) 139/74 mmHg Concurrent Access: falseAV Graft Upper Arm (Right) Arterial BP Standing (Pre-Dialysis) 121/67 mmHg Sitting Heart Rate Post-Dialysis 49 BPM Sitting Heart Rate Pre-Dialysis 80 BPM Temperatu re Post-Dialysis 98 degF Standing Heart Rate Pre-Dialysis 69 BPM Temperature Pre-Dialysis 98 degF December 05, 2022 In-Center Hemodialysis Treatment 3903-68-60P73:43:15.000Z 3986-22-11G23:19:40.000Z BP Sitting (Pre-Dialysis) 131/69 mmHg BP Sitting (Post-Dialysis) 128/71 mmHg Concurrent Access: falseAV Graft Upper Arm (Right) Arterial BP Standing (Pre-Dialysis) 135/102 mmHg Sitti ng Heart Rate Post-Dialysis 79 BPM Sitting Heart Rate Pre-Dialysis 73 BPM Temperatu re Post-Dialysis 98.2 degF Standing Heart Rate Pre-Dialysis 79 BPM Temperature Pre-Dialysis 97.5 degF December 02, 2022 In-Center Hemodialysis Treatment [id number]:51:14.000Z 5387-47-30C64:27:14.000Z BP Sitting (Pre-Dialysis) 139/81 mmHg BP Sitting (Post-Dialysis) 148/84 mmHg Concurrent Access: falseAV Graft Upper Arm (Right) Arterial BP Standing (Pre-Dialysis) 129/71 mmHg Sitting Heart Rate Post-Dialysis 88 BPM Sitting Heart Rate Pre-Dialysis 85 BPM Temperatu re Post-Dialysis 98 degF Standing Heart Rate Pre-Dialysis 81 BPM Temperature Pre-Dialysis 97 degF November 30, 2022 In-Center Hemodialysis Treatment [id number]:49:15.000Z 3511-87-61U01:22:45.000Z BP Sitting (Pre-Dialysis) 148/95 mmHg BP Sitting (Post-Dialysis) 121/72 mmHg Concurrent Access: falseAV Graft Upper Arm (Right) Arterial BP Standing (Pre-Dialysis) 140/81 mmHg Sitting Heart Rate Post-Dialysis 98 BPM Sitting Heart Rate Pre-Dialysis 81 BPM Standing Heart Rate Pre-Dialysis 94 BPM Temperature Pre-Dialysis 97.3 degF November 28, 2022 In-Center Hemodialysis Treatment 9923-87-09X58:45:46.000Z 4442-57-43G36:04:46.000Z BP Sitting (Pre-Dialysis) 149/87 mmHg BP Sitting (Post-Dialysis) 142/91 mmHg Concurrent Access: falseAV Graft Upper Arm (Right) Arterial BP Standing (Pre-Dialysis) 152/73 mmHg Sitting Heart Rate Post-Dialysis 91 BPM Sitting Heart Rate Pre-Dialysis 88 BPM Temperatu re Post-Dialysis 97 degF Standing Heart Rate Pre-Dialysis 95 BPM Temperature Pre-Dialysis 98 degF November 25, 2022 In-Center Hemodialysis Treatment [id number]:45:35.000Z 0130-57-60Q50:13:00.000Z BP Sitting (Pre-Dialysis) 159/91 mmHg BP Sitting (Post-Dialysis) 141/77 mmHg Concurrent Access: falseAV Graft Upper Arm (Right) Arterial Sitting Heart Rate Pre-Dialysis 102 BPM BP Standi ng (Post-Dialysis) 135/74 mmHg Temperature Pre-Dialysis 98 degF Sitting Heart Ra te Post-Dialysis 80 BPM Standing Heart Rate Post-Cuca lysis 91 BPM Temperature Post-Dialysis 97 .7 degF November 23, 2022 In-Center Hemodialysis Treatment 9312-04-47N75:40:00.000Z 6786-33-38G45:17:00.000Z BP Sitting (Pre-Dialysis) 151/67 mmHg BP Sitting (Post-Dialysis) 129/82 mmHg Concurrent Access: falseAV Graft Upper Arm (Right) Arterial BP Standing (Pre-Dialysis) 140/78 mmHg BP Standing (P ost-Dialysis) 130/72 mmHg Sitting Heart Rate Pre-Dialysis 82 BPM Sitting Heart Rate Post-Dialysis 79 BPM Standing Heart Rate Pre-Dialysis 85 BPM Standing Heart Rate Post-Dialysis 80 BPM Temperature Pre-Dialysis 97.3 degF November 21, 2022 In-Center Hemodialysis Treatment 0255-46-15V98:45:30.000Z 2243-07-17K77:20:56.000Z BP Sitting (Pre-Dialysis) 162/92 mmHg BP Sitting (Post-Dialysis) 150/89 mmHg Concurrent Access: falseAV Graft Upper Arm (Right) Arterial BP Standing (Pre-Dialysis) 162/69 mmHg BP Standing (P ost-Dialysis) 125/76 mmHg Sitting Heart Rate Pre-Dialysis 81 BPM Sitting Heart Rate Post-Dialysis 79 BPM Standing Heart Rate Pre-Dialysis 80 BPM Standing Heart Rate Post-Dialysis 81 BPM Temperature Pre-Dialysis 98 degF Temperature Post -Dialysis 97.9 degF November 18, 2022 In-Center Hemodialysis Treatment 2609-61-44S30:42:47.000Z 5602-57-54Q53:16:17.000Z BP Sitting (Pre-Dialysis) 142/74 mmHg BP Sitting (Post-Dialysis) 136/78 mmHg Concurrent Access: falseAV Graft Upper Arm (Right) Arterial Sitting Heart Rate Pre-Dialysis 80 BPM Sitting H eart Rate Post-Dialysis 68 BPM Temperature Pre-Dialysis 98 degF Temperature Post -Dialysis 97 degF November 15, 2022 In-Center Hemodialysis Treatment [id number]:54:00.000Z 9729-44-14Z70:00:15.000Z BP Sitting (Pre-Dialysis) 142/73 mmHg BP Sitting (Post-Dialysis) 145/86 mmHg Concurrent Access: falseAV Graft Upper Arm (Right) Arterial BP Standing (Pre-Dialysis) 139/84 mmHg Sitting Heart Rate Post-Dialysis 85 BPM Sitting Heart Rate Pre-Dialysis 77 BPM Temperatu re Post-Dialysis 98 degF Standing Heart Rate Pre-Dialysis 87 BPM Temperature Pre-Dialysis 98 degF November 14, 2022 In-Center Hemodialysis Treatment 6280-15-23J57:57:29.000Z 9619-97-29I62:40:30.000Z BP Sitting (Pre-Dialysis) 160/91 mmHg BP Sitting (Post-Dialysis) 139/83 mmHg Concurrent Access: falseAV Graft Upper Arm (Right) Arterial BP Standing (Pre-Dialysis) 149/96 mmHg BP Standing (P ost-Dialysis) 120/77 mmHg Sitting Heart Rate Pre-Dialysis 89 BPM Sitting Heart Rate Post-Dialysis 80 BPM Standing Heart Rate Pre-Dialysis 88 BPM Standing Heart Rate Post-Dialysis 97 BPM Temperature Pre-Dialysis 98.4 degF Temperature Post -Dialysis 97.7 degF November 11, 2022 In-Center Hemodialysis Treatment [id number]:46:00.000Z [id number]:16:19.000Z BP Sitting (Pre-Dialysis) 161/85 mmHg BP Sitting (Post-Dialysis) 116/78 mmHg Concurrent Access: falseAV Graft Upper Arm (Right) Arterial BP Standing (Pre-Dialysis) 148/82 mmHg Sitting Heart Rate Post-Dialysis 90 BPM Sitting Heart Rate Pre-Dialysis 92 BPM Standing Heart Rate Pre-Dialysis 100 BPM Temperature Pre-Dialysis 97.2 degF November 09, 2022 In-Center Hemodialysis Treatment 3491-10-35I25:40:00.000Z 6692-77-02T62:08:39.000Z BP Sitting (Pre-Dialysis) 149/97 mmHg BP Sitting (Post-Dialysis) 128/89 mmHg Concurrent Access: falseAV Graft Upper Arm (Right) Arterial BP Standing (Pre-Dialysis) 150/96 mmHg BP Standing (P ost-Dialysis) 129/73 mmHg Sitting Heart Rate Pre-Dialysis 90 BPM Sitting Heart Rate Post-Dialysis 80 BPM Standing Heart Rate Pre-Dialysis 91 BPM Standing Heart Rate Post-Dialysis 96 BPM Temperature Pre-Dialysis 98.1 degF Temperature Post -Dialysis 98 degF November 07, 2022 In-Center Hemodialysis Treatment [id number]:44:41.000Z 8882-62-55C41:21:41.000Z BP Sitting (Pre-Dialysis) 161/106 mmHg BP Sitting (Post-Dialysis) 138/89 mmHg Concurrent Access: falseAV Graft Upper Arm (Right) Arterial BP Standing (Pre-Dialysis) 160/102 mmHg Sitti ng Heart Rate Post-Dialysis 95 BPM Sitting Heart Rate Pre-Dialysis 80 BPM Temperatu re Post-Dialysis 98.7 degF Standing Heart Rate Pre-Dialysis 87 BPM Temperature Pre-Dialysis 98.5 degF November 04, 2022 In-Center Hemodialysis Treatment 5080-21-20M26:50:26.000Z 6788-12-82G19:20:01.000Z BP Sitting (Pre-Dialysis) 163/105 mmHg BP Sitting (Post-Dialysis) 148/100 mmHg Concurrent Access: falseAV Graft Upper Arm (Right) Arterial BP Standing (Pre-Dialysis) 164/99 mmHg Sitti ng Heart Rate Post-Dialysis 87 BPM Sitting Heart Rate Pre-Dialysis 92 BPM Temperatu re Post-Dialysis 98.1 degF Standing Heart Rate Pre-Dialysis 86 BPM Temperature Pre-Dialysis 97.1 degF November 02, 2022 In-Center Hemodialysis Treatment [id number]:42:32.000Z 2207-19-54U72:30:32.000Z BP Sitting (Pre-Dialysis) 135/80 mmHg BP Sitting (Post-Dialysis) 90/52 mmHg Concurrent Access: falseAV Graft Upper Arm (Right) Arterial BP Standing (Pre-Dialysis) 138/76 mmHg BP Standing (P ost-Dialysis) 105/71 mmHg Sitting Heart Rate Pre-Dialysis 67 BPM Sitting Heart Rate Post-Dialysis 94 BPM Standing Heart Rate Pre-Dialysis 120 BPM Standing Heart Rate Post-Dialysis 80 BPM Temperature Pre-Dialysis 97.9 degF Temperature Post -Dialysis 98.1 degF October 31, 2022 In-Center Hemodialysis Treatment [id number]:41:29.000Z 0960-09-62C54:06:00.000Z BP Sitting (Pre-Dialysis) 151/96 mmHg BP Sitting (Post-Dialysis) 108/67 mmHg Concurrent Access: falseAV Graft Upper Arm (Right) Arterial BP Standing (Pre-Dialysis) 157/94 mmHg BP Standing (P ost-Dialysis) 108/65 mmHg Sitting Heart Rate Pre-Dialysis 79 BPM Sitting Heart Rate Post-Dialysis 73 BPM Standing Heart Rate Pre-Dialysis 77 BPM Standing Heart Rate Post-Dialysis 80 BPM Temperature Pre-Dialysis 97.1 degF October 28, 2022 In-Center Hemodialysis Treatment 7630-04-75N52:30:00.000Z 4322-05-02D28:10:58.000Z BP Sitting (Pre-Dialysis) 157/102 mmHg BP Sitting (Post-Dialysis) 142/75 mmHg Concurrent Access: falseAV Graft Upper Arm (Right) Arterial BP Standing (Pre-Dialysis) 144/89 mmHg Sitti ng Heart Rate Post-Dialysis 72 BPM Sitting Heart Rate Pre-Dialysis 74 BPM Temperatu re Post-Dialysis 97.2 degF Standing Heart Rate Pre-Dialysis 73 BPM Temperature Pre-Dialysis 97.3 degF October 26, 2022 In-Center Hemodialysis Treatment 2799-39-24M71:35:00.000Z 5913-15-13E27:54:45.000Z BP Sitting (Pre-Dialysis) 140/73 mmHg BP Sitting (Post-Dialysis) 140/80 mmHg Concurrent Access: falseAV Graft Upper Arm (Right) Arterial BP Standing (Pre-Dialysis) 151/98 mmHg BP Standing (P ost-Dialysis) 117/78 mmHg Sitting Heart Rate Pre-Dialysis 65 BPM Sitting Heart Rate Post-Dialysis 88 BPM Standing Heart Rate Pre-Dialysis 65 BPM Standing Heart Rate Post-Dialysis 80 BPM Temperature Pre-Dialysis 98.1 degF Temperature Post -Dialysis 98 degF October 24, 2022 In-Center Hemodialysis Treatment [id number]:43:18.000Z 5393-19-72E97:16:19.000Z BP Sitting (Pre-Dialysis) 139/79 mmHg BP Sitting (Post-Dialysis) 120/83 mmHg Concurrent Access: falseAV Graft Upper Arm (Right) Arterial BP Standing (Pre-Dialysis) 121/75 mmHg Sitting Heart Rate Post-Dialysis 71 BPM Sitting Heart Rate Pre-Dialysis 67 BPM Temperatu re Post-Dialysis 98 degF Standing Heart Rate Pre-Dialysis 67 BPM Temperature Pre-Dialysis 97 degF October 21, 2022 In-Center Hemodialysis Treatment 8636-44-99G65:38:00.000Z 7553-42-57R69:11:26.000Z BP Sitting (Pre-Dialysis) 162/84 mmHg BP Sitting (Post-Dialysis) 121/79 mmHg Concurrent Access: falseAV Graft Upper Arm (Right) Arterial BP Standing (Pre-Dialysis) 158/79 mmHg BP Standing (P ost-Dialysis) 107/62 mmHg Sitting Heart Rate Pre-Dialysis 72 BPM Sitting Heart Rate Post-Dialysis 81 BPM Standing Heart Rate Pre-Dialysis 77 BPM Standing Heart Rate Post-Dialysis 90 BPM Temperature Pre-Dialysis 97.2 degF Temperature Post -Dialysis 98 degF October 19, 2022 In-Center Hemodialysis Treatment 1004-70-41B90:41:10.000Z 6163-91-73D43:33:05.000Z BP Sitting (Pre-Dialysis) 151/97 mmHg BP Sitting (Post-Dialysis) 127/78 mmHg Concurrent Access: falseAV Graft Upper Arm (Right) Arterial BP Standing (Pre-Dialysis) 159/92 mmHg Sitting Heart Rate Post-Dialysis 72 BPM Sitting Heart Rate Pre-Dialysis 73 BPM Temperatu re Post-Dialysis 98 degF Standing Heart Rate Pre-Dialysis 80 BPM Temperature Pre-Dialysis 97.1 degF October 17, 2022 In-Center Hemodialysis Treatment [id number]:45:37.000Z 3400-13-21T85:24:37.000Z BP Sitting (Pre-Dialysis) 172/104 mmHg BP Sitting (Post-Dialysis) 157/97 mmHg Concurrent Access: falseAV Graft Upper Arm (Right) Arterial BP Standing (Pre-Dialysis) 171/102 mmHg Sitti ng Heart Rate Post-Dialysis 69 BPM Sitting Heart Rate Pre-Dialysis 73 BPM Temperatu re Post-Dialysis 98.3 degF Standing Heart Rate Pre-Dialysis 80 BPM Temperature Pre-Dialysis 96.2 degF October 14, 2022 In-Center Hemodialysis Treatment 1476-86-39I69:30:00.000Z 5004-97-13P62:06:36.000Z BP Sitting (Pre-Dialysis) 120/82 mmHg BP Sitting (Post-Dialysis) 133/84 mmHg Concurrent Access: falseAV Graft Upper Arm (Right) Arterial BP Standing (Pre-Dialysis) 145/73 mmHg BP Standing (P ost-Dialysis) 117/58 mmHg Sitting Heart Rate Pre-Dialysis 85 BPM Sitting Heart Rate Post-Dialysis 80 BPM Standing Heart Rate Pre-Dialysis 80 BPM Standing Heart Rate Post-Dialysis 91 BPM Temperature Pre-Dialysis 97 degF Temperature Post -Dialysis 98 degF October 12, 2022 In-Center Hemodialysis Treatment 2569-60-91L06:36:00.000Z 7123-26-58D59:02:33.000Z BP Sitting (Pre-Dialysis) 141/119 mmHg BP Sitting (Post-Dialysis) 138/89 mmHg Concurrent Access: falseAV Graft Upper Arm (Right) Arterial BP Standing (Pre-Dialysis) 144/115 mmHg BP Standing (P ost-Dialysis) 104/74 mmHg Sitting Heart Rate Pre-Dialysis 100 BPM Sitting Heart Rate Post-Dialysis 104 BPM Standing Heart Rate Pre-Dialysis 92 BPM Standing Heart Rate Post-Dialysis 95 BPM Temperature Pre-Dialysis 98 degF Temperature Post -Dialysis 98.8 degF October 10, 2022 In-Center Hemodialysis Treatment 0927-47-52Q97:55:00.000Z 8195-90-56N19:26:23.000Z BP Sitting (Pre-Dialysis) 167/109 mmHg BP Sitting (Post-Dialysis) 145/89 mmHg Concurrent Access: falseAV Graft Upper Arm (Right) Arterial BP Standing (Pre-Dialysis) 164/94 mmHg Sitti ng Heart Rate Post-Dialysis 77 BPM Sitting Heart Rate Pre-Dialysis 82 BPM Temperatu re Post-Dialysis 97.9 degF Standing Heart Rate Pre-Dialysis 104 BPM Temperature Pre-Dialysis 97.1 degF October 07, 2022 In-Center Hemodialysis Treatment [id number]:53:55.000Z 1512-31-44J52:37:55.000Z BP Sitting (Pre-Dialysis) 175/112 mmHg BP Sitting (Post-Dialysis) 129/96 mmHg Concurrent Access: falseAV Graft Upper Arm (Right) Arterial BP Standing (Pre-Dialysis) 166/102 mmHg Sitti ng Heart Rate Post-Dialysis 146 BPM Sitting Heart Rate Pre-Dialysis 93 BPM Temperatu re Post-Dialysis 98.3 degF Standing Heart Rate Pre-Dialysis 87 BPM Temperature Pre-Dialysis 97.6 degF October 05, 2022 In-Center Hemodialysis Treatment 6703-63-88Z98:49:00.000Z 7765-98-18K60:28:13.000Z BP Sitting (Pre-Dialysis) 158/100 mmHg BP Sitting (Post-Dialysis) 141/88 mmHg Concurrent Access: falseAV Graft Upper Arm (Right) Arterial BP Standing (Pre-Dialysis) 167/109 mmHg Sitti ng Heart Rate Post-Dialysis 90 BPM Sitting Heart Rate Pre-Dialysis 92 BPM Temperatu re Post-Dialysis 98.4 degF Standing Heart Rate Pre-Dialysis 90 BPM Temperature Pre-Dialysis 97 degF October 03, 2022 In-Center Hemodialysis Treatment 8749-22-57F11:58:20.000Z 0403-22-52P64:28:20.000Z BP Sitting (Pre-Dialysis) 149/96 mmHg BP Sitting (Post-Dialysis) 137/84 mmHg Concurrent Access: falseAV Graft Upper Arm (Right) Arterial BP Standing (Pre-Dialysis) 149/95 mmHg BP Standing (P ost-Dialysis) 122/79 mmHg Sitting Heart Rate Pre-Dialysis 80 BPM Sitting Heart Rate Post-Dialysis 107 BPM Standing Heart Rate Pre-Dialysis 78 BPM Standing Heart Rate Post-Dialysis 96 BPM Temperature Pre-Dialysis 97 degF Temperature Post -Dialysis 98.5 degF September 30, 2022 In-Center Hemodialysis Treatment [id number]:59:43.000Z 9381-38-90X43:32:14.000Z BP Sitting (Pre-Dialysis) 179/97 mmHg BP Sitting (Post-Dialysis) 147/100 mmHg Concurrent Access: falseAV Graft Upper Arm (Right) Arterial BP Standing (Pre-Dialysis) 158/104 mmHg BP Standing (P ost-Dialysis) 107/67 mmHg Sitting Heart Rate Pre-Dialysis 77 BPM Sitting Heart Rate Post-Dialysis 86 BPM Standing Heart Rate Pre-Dialysis 80 BPM Standing Heart Rate Post-Dialysis 91 BPM Temperature Pre-Dialysis 96.6 degF Temperature Post -Dialysis 97.7 degF September 28, 2022 In-Center Hemodialysis Treatment [id number]:41:00.000Z 5461-18-46N54:07:23.000Z BP Sitting (Pre-Dialysis) 152/96 mmHg BP Sitting (Post-Dialysis) 135/79 mmHg Concurrent Access: falseAV Graft Upper Arm (Right) Arterial BP Standing (Pre-Dialysis) 159/98 mmHg BP Standing (P ost-Dialysis) 118/78 mmHg Sitting Heart Rate Pre-Dialysis 70 BPM Sitting Heart Rate Post-Dialysis 80 BPM Standing Heart Rate Pre-Dialysis 85 BPM Standing Heart Rate Post-Dialysis 89 BPM Temperature Pre-Dialysis 97 degF Temperature Post -Dialysis 97.7 degF September 26, 2022 In-Center Hemodialysis Treatment 1795-20-53S71:08:00.000Z 3252-44-27X18:39:16.000Z BP Sitting (Pre-Dialysis) 152/97 mmHg BP Sitting (Post-Dialysis) 122/78 mmHg Concurrent Access: falseAV Graft Upper Arm (Right) Arterial BP Standing (Pre-Dialysis) 158/98 mmHg Sitting Heart Rate Post-Dialysis 73 BPM Sitting Heart Rate Pre-Dialysis 69 BPM Temperatu re Post-Dialysis 98 degF Standing Heart Rate Pre-Dialysis 89 BPM Temperature Pre-Dialysis 97 degF September 23, 2022 In-Center Hemodialysis Treatment 4147-04-60C84:46:05.000Z 1310-89-59K20:08:00.000Z BP Sitting (Pre-Dialysis) 149/87 mmHg BP Sitting (Post-Dialysis) 147/101 mmHg Concurrent Access: falseAV Graft Upper Arm (Right) Arterial BP Standing (Pre-Dialysis) 158/103 mmHg Sitti ng Heart Rate Post-Dialysis 86 BPM Sitting Heart Rate Pre-Dialysis 92 BPM Temperatu re Post-Dialysis 98 degF Standing Heart Rate Pre-Dialysis 86 BPM Temperature Pre-Dialysis 96.6 degF September 21, 2022 In-Center Hemodialysis Treatment 7024-85-44Q96:45:00.000Z 3532-51-60S13:22:43.000Z BP Sitting (Pre-Dialysis) 156/102 mmHg BP Sitting (Post-Dialysis) 148/80 mmHg Concurrent Access: falseAV Graft Upper Arm (Right) Arterial BP Standing (Pre-Dialysis) 164/102 mmHg BP Standing (P ost-Dialysis) 133/93 mmHg Sitting Heart Rate Pre-Dialysis 88 BPM Sitting Heart Rate Post-Dialysis 90 BPM Standing Heart Rate Pre-Dialysis 95 BPM Standing Heart Rate Post-Dialysis 93 BPM Temperature Pre-Dialysis 98.2 degF Temperature Post -Dialysis 98 degF September 19, 2022 In-Center Hemodialysis Treatment 8431-29-63A45:53:00.000Z 4099-06-71Q72:23:19.000Z BP Sitting (Pre-Dialysis) 156/113 mmHg BP Sitting (Post-Dialysis) 160/99 mmHg Concurrent Access: falseAV Graft Upper Arm (Right) Arterial BP Standing (Pre-Dialysis) 171/104 mmHg BP Standing (P ost-Dialysis) 130/77 mmHg Sitting Heart Rate Pre-Dialysis 91 BPM Sitting Heart Rate Post-Dialysis 80 BPM Standing Heart Rate Pre-Dialysis 92 BPM Standing Heart Rate Post-Dialysis 80 BPM Temperature Pre-Dialysis 98 degF Temperature Post -Dialysis 98 degF September 16, 2022 In-Center Hemodialysis Treatment 2969-78-76G67:50:00.000Z 1133-90-24X54:19:44.000Z BP Sitting (Pre-Dialysis) 155/109 mmHg BP Sitting (Post-Dialysis) 150/100 mmHg Concurrent Access: falseAV Graft Upper Arm (Right) Arterial BP Standing (Pre-Dialysis) 170/104 mmHg BP Standing (P ost-Dialysis) 133/94 mmHg Sitting Heart Rate Pre-Dialysis 91 BPM Sitting Heart Rate Post-Dialysis 98 BPM Standing Heart Rate Pre-Dialysis 92 BPM Standing Heart Rate Post-Dialysis 92 BPM Temperature Pre-Dialysis 97.3 degF Temperature Post -Dialysis 97.8 degF September 14, 2022 In-Center Hemodialysis Treatment [id number]:56:00.000Z 5859-55-76V01:03:32.000Z BP Sitting (Pre-Dialysis) 164/115 mmHg BP Sitting (Post-Dialysis) 155/88 mmHg Concurrent Access: falseAV Graft Upper Arm (Right) Arterial BP Standing (Pre-Dialysis) 178/110 mmHg BP Standing (P ost-Dialysis) 130/79 mmHg Sitting Heart Rate Pre-Dialysis 91 BPM Sitting Heart Rate Post-Dialysis 79 BPM Standing Heart Rate Pre-Dialysis 86 BPM Standing Heart Rate Post-Dialysis 82 BPM Temperature Pre-Dialysis 98.2 degF Temperature Post -Dialysis 98 degF September 12, 2022 In-Center Hemodialysis Treatment 3221-22-62C46:26:00.000Z 9123-71-46K99:59:34.000Z BP Sitting (Pre-Dialysis) 179/110 mmHg BP Sitting (Post-Dialysis) 138/94 mmHg Concurrent Access: falseAV Graft Upper Arm (Right) Arterial BP Standing (Pre-Dialysis) 191/112 mmHg BP Standing (P ost-Dialysis) 130/79 mmHg Sitting Heart Rate Pre-Dialysis 102 BPM Sitting Heart Rate Post-Dialysis 81 BPM Standing Heart Rate Pre-Dialysis 72 BPM Standing Heart Rate Post-Dialysis 99 BPM Temperature Pre-Dialysis 98.2 degF Temperature Post -Dialysis 97 degF September 09, 2022 In-Center Hemodialysis Treatment [id number]:45:00.000Z 1211-92-04W75:06:06.000Z BP Sitting (Pre-Dialysis) 160/97 mmHg BP Sitting (Post-Dialysis) 128/89 mmHg Concurrent Access: falseAV Graft Upper Arm (Right) Arterial BP Standing (Pre-Dialysis) 170/101 mmHg BP Standing (P ost-Dialysis) 127/99 mmHg Sitting Heart Rate Pre-Dialysis 93 BPM Sitting Heart Rate Post-Dialysis 94 BPM Standing Heart Rate Pre-Dialysis 103 BPM Standing Heart Rate Post-Dialysis 79 BPM Temperature Pre-Dialysis 98 degF September 07, 2022 In-Center Hemodialysis Treatment 9859-53-86V16:58:00.000Z 5589-41-76Z23:34:08.000Z BP Sitting (Pre-Dialysis) 174/98 mmHg BP Sitting (Post-Dialysis) 123/98 mmHg Concurrent Access: falseAV Graft Upper Arm (Right) Arterial BP Standing (Pre-Dialysis) 167/59 mmHg Sitting Heart Rate Post-Dialysis 100 BPM Sitting Heart Rate Pre-Dialysis 104 BPM Temperatu re Post-Dialysis 98 degF Standing Heart Rate Pre-Dialysis 107 BPM Temperature Pre-Dialysis 97.3 degF September 05, 2022 In-Center Hemodialysis Treatment 3510-24-68D91:55:00.000Z 1414-00-72O76:28:24.000Z BP Sitting (Pre-Dialysis) 152/87 mmHg BP Sitting (Post-Dialysis) 137/90 mmHg Concurrent Access: falseAV Graft Upper Arm (Right) Arterial BP Standing (Pre-Dialysis) 160/99 mmHg BP Standing (P ost-Dialysis) 134/83 mmHg Sitting Heart Rate Pre-Dialysis 85 BPM Sitting Heart Rate Post-Dialysis 98 BPM Standing Heart Rate Pre-Dialysis 86 BPM Standing Heart Rate Post-Dialysis 88 BPM Temperature Pre-Dialysis 97.5 degF Temperature Post -Dialysis 97.7 degF September 02, 2022 In-Center Hemodialysis Treatment 9853-67-75J73:54:00.000Z 1369-74-04P90:23:35.000Z BP Sitting (Pre-Dialysis) 152/100 mmHg BP Sitting (Post-Dialysis) 149/84 mmHg Concurrent Access: falseAV Graft Upper Arm (Right) Arterial BP Standing (Pre-Dialysis) 144/88 mmHg BP Standing (P ost-Dialysis) 126/90 mmHg Sitting Heart Rate Pre-Dialysis 91 BPM Sitting Heart Rate Post-Dialysis 80 BPM Standing Heart Rate Pre-Dialysis 98 BPM Standing Heart Rate Post-Dialysis 95 BPM Temperature Pre-Dialysis 98 degF Temperature Post -Dialysis 98.3 degF August 31, 2022 In-Center Hemodialysis Treatment [id number]:50:00.000Z 7258-12-10V36:19:41.000Z BP Sitting (Pre-Dialysis) 167/102 mmHg BP Sitting (Post-Dialysis) 156/104 mmHg Concurrent Access: falseAV Graft Upper Arm (Right) Arterial BP Standing (Pre-Dialysis) 157/96 mmHg Sitting Heart Rate Post-Dialysis 82 BPM Sitting Heart Rate Pre-Dialysis 77 BPM Temperatu re Post-Dialysis 97 degF Standing Heart Rate Pre-Dialysis 99 BPM Temperature Pre-Dialysis 97 degF August 29, 2022 In-Center Hemodialysis Treatment 5838-81-30B60:19:58.000Z 2221-64-97Q54:52:39.000Z BP Sitting (Pre-Dialysis) 171/105 mmHg BP Sitting (Post-Dialysis) 164/78 mmHg Concurrent Access: falseAV Graft Upper Arm (Right) Arterial BP Standing (Pre-Dialysis) 165/110 mmHg Sitting Heart Rate Post-Dialysis 81 BPM Sitting Heart Rate Pre-Dialysis 88 BPM Standing Heart Rate Pre-Dialysis 88 BPM Temperature Pre-Dialysis 98 degF August 26, 2022 In-Center Hemodialysis Treatment 7698-64-16N32:50:00.000Z 7880-09-68J83:24:28.000Z BP Sitting (Pre-Dialysis) 166/110 mmHg BP Sitting (Post-Dialysis) 147/99 mmHg Concurrent Access: falseAV Graft Upper Arm (Right) Arterial BP Standing (Pre-Dialysis) 170/110 mmHg Sitti ng Heart Rate Post-Dialysis 88 BPM Sitting Heart Rate Pre-Dialysis 82 BPM Temperatu re Post-Dialysis 97 degF Standing Heart Rate Pre-Dialysis 82 BPM Temperature Pre-Dialysis 98 degF August 24, 2022 In-Center Hemodialysis Treatment 3789-55-25Q01:45:00.000Z 9598-37-22B12:56:01.000Z BP Sitting (Pre-Dialysis) 160/108 mmHg BP Sitting (Post-Dialysis) 121/78 mmHg Concurrent Access: falseAV Graft Upper Arm (Right) Arterial Sitting Heart Rate Pre-Dialysis 81 BPM BP Standi ng (Post-Dialysis) 140/83 mmHg Temperature Pre-Dialysis 97 degF Sitting Heart Ra te Post-Dialysis 82 BPM Standing Heart Rate Post-Cuca lysis 87 BPM Temperature Post-Dialysis 98 degF August 22, 2022 In-Center Hemodialysis Treatment 1821-98-69K80:05:00.000Z 4939-96-59H84:03:36.000Z BP Sitting (Pre-Dialysis) 158/99 mmHg BP Sitting (Post-Dialysis) 105/61 mmHg Concurrent Access: falseAV Graft Upper Arm (Right) Arterial BP Standing (Pre-Dialysis) 148/83 mmHg BP Standing (P ost-Dialysis) 131/65 mmHg Sitting Heart Rate Pre-Dialysis 80 BPM Sitting Heart Rate Post-Dialysis 80 BPM Standing Heart Rate Pre-Dialysis 89 BPM Standing Heart Rate Post-Dialysis 95 BPM Temperature Pre-Dialysis 97.3 degF Temperature Post -Dialysis 98 degF August 19, 2022 In-Center Hemodialysis Treatment 4816-81-29G50:47:36.000Z 6551-39-16T96:18:41.000Z BP Sitting (Pre-Dialysis) 175/110 mmHg BP Sitting (Post-Dialysis) 149/97 mmHg Concurrent Access: falseAV Graft Upper Arm (Right) Arterial BP Standing (Pre-Dialysis) 186/113 mmHg Sitti ng Heart Rate Post-Dialysis 101 BPM Sitting Heart Rate Pre-Dialysis 92 BPM Temperatu re Post-Dialysis 98.1 degF Standing Heart Rate Pre-Dialysis 89 BPM Temperature Pre-Dialysis 97.2 degF August 17, 2022 In-Center Hemodialysis Treatment 1218-32-06D87:47:00.000Z 9079-50-96K31:30:11.000Z BP Sitting (Pre-Dialysis) 164/104 mmHg BP Sitting (Post-Dialysis) 139/88 mmHg Concurrent Access: falseAV Graft Upper Arm (Right) Arterial BP Standing (Pre-Dialysis) 170/109 mmHg BP Standing (P ost-Dialysis) 118/78 mmHg Sitting Heart Rate Pre-Dialysis 92 BPM Sitting Heart Rate Post-Dialysis 108 BPM Standing Heart Rate Pre-Dialysis 98 BPM Standing Heart Rate Post-Dialysis 93 BPM Temperature Pre-Dialysis 98 degF Temperature Post -Dialysis 98 degF August 15, 2022 In-Center Hemodialysis Treatment [id number]:55:00.000Z 1382-93-70S59:18:51.000Z BP Sitting (Pre-Dialysis) 170/118 mmHg BP Sitting (Post-Dialysis) 151/102 mmHg Concurrent Access: falseAV Graft Upper Arm (Right) Arterial BP Standing (Pre-Dialysis) 173/107 mmHg BP Standing (P ost-Dialysis) 148/99 mmHg Sitting Heart Rate Pre-Dialysis 104 BPM Sitting Heart Rate Post-Dialysis 95 BPM Standing Heart Rate Pre-Dialysis 104 BPM Standing Heart Rate Post-Dialysis 107 BPM Temperature Pre-Dialysis 98 degF Temperature Post -Dialysis 98 degF August 12, 2022 In-Center Hemodialysis Treatment 7952-05-21N56:40:00.000Z 3553-11-28V04:21:11.000Z BP Sitting (Pre-Dialysis) 165/104 mmHg BP Sitting (Post-Dialysis) 162/104 mmHg Concurrent Access: falseAV Graft Upper Arm (Right) Arterial Sitting Heart Rate Pre-Dialysis 96 BPM BP Standi ng (Post-Dialysis) 157/110 mmHg Temperature Pre-Dialysis 97 degF Sitting Heart Ra te Post-Dialysis 80 BPM Standing Heart Rate Post-Cuca lysis 124 BPM Temperature Post-Dialysis 97 .3 degF August 10, 2022 In-Center Hemodialysis Treatment 3144-24-15L49:48:00.000Z 4511-88-75H44:17:49.000Z BP Sitting (Pre-Dialysis) 165/101 mmHg BP Sitting (Post-Dialysis) 157/94 mmHg Concurrent Access: falseAV Graft Upper Arm (Right) Arterial BP Standing (Pre-Dialysis) 175/105 mmHg Sitti ng Heart Rate Post-Dialysis 82 BPM Sitting Heart Rate Pre-Dialysis 49 BPM Temperatu re Post-Dialysis 98.3 degF Standing Heart Rate Pre-Dialysis 81 BPM Temperature Pre-Dialysis 97.7 degF August 08, 2022 In-Center Hemodialysis Treatment [id number]:54:49.000Z 8142-46-79F41:34:50.000Z BP Sitting (Pre-Dialysis) 164/103 mmHg BP Sitting (Post-Dialysis) 161/94 mmHg Concurrent Access: falseAV Graft Upper Arm (Right) Arterial BP Standing (Pre-Dialysis) 172/101 mmHg BP Standing (P ost-Dialysis) 148/94 mmHg Sitting Heart Rate Pre-Dialysis 82 BPM Sitting Heart Rate Post-Dialysis 90 BPM Standing Heart Rate Pre-Dialysis 88 BPM Standing Heart Rate Post-Dialysis 81 BPM Temperature Pre-Dialysis 97.6 degF Temperature Post -Dialysis 98 degF August 05, 2022 In-Center Hemodialysis Treatment 6315-35-27P56:50:00.000Z 0570-29-30K69:26:00.000Z BP Sitting (Pre-Dialysis) 170/96 mmHg BP Sitting (Post-Dialysis) 128/95 mmHg Concurrent Access: falseAV Graft Upper Arm (Right) Arterial BP Standing (Pre-Dialysis) 177/107 mmHg BP Standing (P ost-Dialysis) 116/94 mmHg Sitting Heart Rate Pre-Dialysis 85 BPM Sitting Heart Rate Post-Dialysis 59 BPM Standing Heart Rate Pre-Dialysis 81 BPM Standing Heart Rate Post-Dialysis 89 BPM Temperature Pre-Dialysis 97.9 degF Temperature Post -Dialysis 98.7 degF August 03, 2022 In-Center Hemodialysis Treatment 3629-19-97U85:49:00.000Z 2732-12-47D98:28:32.000Z BP Sitting (Pre-Dialysis) 149/97 mmHg BP Sitting (Post-Dialysis) 116/84 mmHg Concurrent Access: falseAV Graft Upper Arm (Right) Arterial BP Standing (Pre-Dialysis) 160/95 mmHg BP Standing (P ost-Dialysis) 105/73 mmHg Sitting Heart Rate Pre-Dialysis 80 BPM Sitting Heart Rate Post-Dialysis 87 BPM Standing Heart Rate Pre-Dialysis 120 BPM Standing Heart Rate Post-Dialysis 94 BPM Temperature Pre-Dialysis 98 degF August 01, 2022 In-Center Hemodialysis Treatment 6762-16-49F45:02:00.000Z 0510-22-23N84:31:52.000Z BP Sitting (Pre-Dialysis) 144/84 mmHg BP Sitting (Post-Dialysis) 101/71 mmHg Concurrent Access: falseAV Graft Upper Arm (Right) Arterial BP Standing (Pre-Dialysis) 163/95 mmHg BP Standing (P ost-Dialysis) 116/78 mmHg Sitting Heart Rate Pre-Dialysis 81 BPM Sitting Heart Rate Post-Dialysis 41 BPM Standing Heart Rate Pre-Dialysis 88 BPM Standing Heart Rate Post-Dialysis 88 BPM Temperature Pre-Dialysis 97.2 degF Temperature Post -Dialysis 97.2 degF July 29, 2022 In-Center Hemodialysis Treatment 0971-16-94L29:45:00.000Z 3644-81-42O37:19:14.000Z BP Sitting (Pre-Dialysis) 150/108 mmHg BP Sitting (Post-Dialysis) 144/99 mmHg Concurrent Access: falseAV Graft Upper Arm (Right) Arterial Sitting Heart Rate Pre-Dialysis 80 BPM BP Standi ng (Post-Dialysis) 161/79 mmHg Temperature Pre-Dialysis 98 degF Sitting Heart Ra te Post-Dialysis 92 BPM Standing Heart Rate Post-Cuca lysis 94 BPM July 27, 2022 In-Center Hemodialysis Treatment 3835-17-04W86:56:00.000Z 4211-02-46O87:05:48.000Z BP Sitting (Pre-Dialysis) 151/97 mmHg BP Sitting (Post-Dialysis) 150/89 mmHg Concurrent Access: falseAV Graft Upper Arm (Right) Arterial BP Standing (Pre-Dialysis) 120/88 mmHg BP Standing (P ost-Dialysis) 120/78 mmHg Sitting Heart Rate Pre-Dialysis 77 BPM Sitting Heart Rate Post-Dialysis 80 BPM Standing Heart Rate Pre-Dialysis 94 BPM Standing Heart Rate Post-Dialysis 102 BPM Temperature Pre-Dialysis 97 degF Temperature Post -Dialysis 98 degF July 25, 2022 In-Center Hemodialysis Treatment 1863-70-58Q08:52:00.000Z 0356-27-24S87:23:47.000Z BP Sitting (Pre-Dialysis) 165/100 mmHg BP Sitting (Post-Dialysis) 129/78 mmHg Concurrent Access: falseAV Graft Upper Arm (Right) Arterial BP Standing (Pre-Dialysis) 168/100 mmHg BP Standing (P ost-Dialysis) 103/78 mmHg Sitting Heart Rate Pre-Dialysis 99 BPM Sitting Heart Rate Post-Dialysis 80 BPM Standing Heart Rate Pre-Dialysis 85 BPM Standing Heart Rate Post-Dialysis 52 BPM Temperature Pre-Dialysis 96 degF Temperature Post -Dialysis 98 degF July 22, 2022 In-Center Hemodialysis Treatment [id number]:46:00.000Z 2780-86-29A17:15:25.000Z BP Sitting (Pre-Dialysis) 162/97 mmHg BP Sitting (Post-Dialysis) 143/103 mmHg Concurrent Access: falseAV Graft Upper Arm (Right) Arterial BP Standing (Pre-Dialysis) 168/97 mmHg BP Standing (P ost-Dialysis) 128/82 mmHg Sitting Heart Rate Pre-Dialysis 81 BPM Sitting Heart Rate Post-Dialysis 80 BPM Standing Heart Rate Pre-Dialysis 62 BPM Standing Heart Rate Post-Dialysis 104 BPM Temperature Pre-Dialysis 97 degF Temperature Post -Dialysis 97.8 degF July 20, 2022 In-Center Hemodialysis Treatment 2292-08-77T05:44:44.000Z 5650-15-79L37:19:14.000Z BP Sitting (Pre-Dialysis) 150/112 mmHg BP Sitting (Post-Dialysis) 139/80 mmHg Concurrent Access: falseAV Graft Upper Arm (Right) Arterial BP Standing (Pre-Dialysis) 160/95 mmHg Sitti ng Heart Rate Post-Dialysis 80 BPM Sitting Heart Rate Pre-Dialysis 80 BPM Temperatu re Post-Dialysis 97.7 degF Standing Heart Rate Pre-Dialysis 80 BPM Temperature Pre-Dialysis 97.4 degF July 18, 2022 In-Center Hemodialysis Treatment 2868-14-48W98:46:00.000Z 5900-09-82Q16:23:20.000Z BP Sitting (Pre-Dialysis) 154/83 mmHg BP Sitting (Post-Dialysis) 121/78 mmHg Concurrent Access: falseAV Graft Upper Arm (Right) Arterial BP Standing (Pre-Dialysis) 158/72 mmHg BP Standing (P ost-Dialysis) 111/66 mmHg Sitting Heart Rate Pre-Dialysis 117 BPM Sitting Heart Rate Post-Dialysis 80 BPM Standing Heart Rate Pre-Dialysis 74 BPM Standing Heart Rate Post-Dialysis 82 BPM Temperature Pre-Dialysis 97.9 degF Temperature Post -Dialysis 98 degF July 15, 2022 In-Center Hemodialysis Treatment [id number]:50:00.000Z [id number]:24:02.000Z BP Sitting (Pre-Dialysis) 150/88 mmHg BP Sitting (Post-Dialysis) 108/79 mmHg Concurrent Access: falseAV Graft Upper Arm (Right) Arterial BP Standing (Pre-Dialysis) 147/92 mmHg BP Standing (P ost-Dialysis) 122/78 mmHg Sitting Heart Rate Pre-Dialysis 79 BPM Sitting Heart Rate Post-Dialysis 85 BPM Standing Heart Rate Pre-Dialysis 91 BPM Standing Heart Rate Post-Dialysis 82 BPM Temperature Pre-Dialysis 97.5 degF Temperature Post -Dialysis 97.9 degF July 13, 2022 In-Center Hemodialysis Treatment [id number]:30:00.000Z [id number]:34:49.000Z BP Sitting (Pre-Dialysis) 150/81 mmHg BP Sitting (Post-Dialysis) 120/80 mmHg Concurrent Access: falseAV Graft Upper Arm (Right) Arterial BP Standing (Pre-Dialysis) 150/89 mmHg BP Standing (P ost-Dialysis) 104/50 mmHg Sitting Heart Rate Pre-Dialysis 82 BPM Sitting Heart Rate Post-Dialysis 90 BPM Standing Heart Rate Pre-Dialysis 82 BPM Standing Heart Rate Post-Dialysis 89 BPM Temperature Pre-Dialysis 98 degF Temperature Post -Dialysis 98 degF July 11, 2022 In-Center Hemodialysis Treatment [id number]:46:00.000Z [id number]:17:52.000Z BP Sitting (Pre-Dialysis) 164/110 mmHg BP Sitting (Post-Dialysis) 139/96 mmHg Concurrent Access: falseAV Graft Upper Arm (Right) Arterial BP Standing (Pre-Dialysis) 194/110 mmHg BP Standing (P ost-Dialysis) 133/87 mmHg Sitting Heart Rate Pre-Dialysis 81 BPM Sitting Heart Rate Post-Dialysis 81 BPM Standing Heart Rate Pre-Dialysis 85 BPM Standing Heart Rate Post-Dialysis 90 BPM Temperature Pre-Dialysis 97.2 degF Temperature Post -Dialysis 98.3 degF July 08, 2022 In-Center Hemodialysis Treatment 0920-12-09R58:45:00.000Z [id number]:20:30.000Z BP Sitting (Pre-Dialysis) 149/93 mmHg BP Sitting (Post-Dialysis) 128/87 mmHg Concurrent Access: falseAV Graft Upper Arm (Right) Arterial BP Standing (Pre-Dialysis) 150/86 mmHg Sitting Heart Rate Post-Dialysis 87 BPM Sitting Heart Rate Pre-Dialysis 78 BPM Temperatu re Post-Dialysis 98 degF Standing Heart Rate Pre-Dialysis 80 BPM Temperature Pre-Dialysis 96 degF July 06, 2022 In-Center Hemodialysis Treatment [id number]:56:00.000Z [id number]:25:05.000Z BP Sitting (Pre-Dialysis) 159/66 mmHg BP Sitting (Post-Dialysis) 120/81 mmHg Concurrent Access: falseAV Graft Upper Arm (Right) Arterial BP Standing (Pre-Dialysis) 159/95 mmHg BP Standing (P ost-Dialysis) 112/69 mmHg Sitting Heart Rate Pre-Dialysis 81 BPM Sitting Heart Rate Post-Dialysis 82 BPM Standing Heart Rate Pre-Dialysis 79 BPM Standing Heart Rate Post-Dialysis 81 BPM Temperature Pre-Dialysis 96.4 degF Temperature Post -Dialysis 98 degF July 04, 2022 In-Center Hemodialysis Treatment [id number]:51:00.000Z 4023-86-43D06:20:43.000Z BP Sitting (Pre-Dialysis) 165/115 mmHg BP Sitting (Post-Dialysis) 108/81 mmHg Concurrent Access: falseAV Graft Upper Arm (Right) Arterial BP Standing (Pre-Dialysis) 162/97 mmHg Sitting Heart Rate Post-Dialysis 94 BPM Sitting Heart Rate Pre-Dialysis 89 BPM Temperatu re Post-Dialysis 98 degF Standing Heart Rate Pre-Dialysis 40 BPM Temperature Pre-Dialysis 97.1 degF July 01, 2022 In-Center Hemodialysis Treatment [id number]:12:00.000Z [id number]:44:19.000Z BP Sitting (Pre-Dialysis) 155/127 mmHg BP Sitting (Post-Dialysis) 140/93 mmHg Concurrent Access: falseAV Graft Upper Arm (Right) Arterial BP Standing (Pre-Dialysis) 168/97 mmHg Sitting Heart Rate Post-Dialysis 72 BPM Sitting Heart Rate Pre-Dialysis 81 BPM Temperatu re Post-Dialysis 98 degF Standing Heart Rate Pre-Dialysis 91 BPM Temperature Pre-Dialysis 98 degF June 29, 2022 In-Center Hemodialysis Treatment 8860-07-20P20:57:00.000Z 9704-01-23U78:30:16.000Z BP Sitting (Pre-Dialysis) 144/88 mmHg BP Sitting (Post-Dialysis) 158/105 mmHg Concurrent Access: falseAV Graft Upper Arm (Right) Arterial BP Standing (Pre-Dialysis) 63/96 mmHg BP Standing (P ost-Dialysis) 122/78 mmHg Sitting Heart Rate Pre-Dialysis 85 BPM Sitting Heart Rate Post-Dialysis 80 BPM Standing Heart Rate Pre-Dialysis 81 BPM Standing Heart Rate Post-Dialysis 87 BPM Temperature Pre-Dialysis 98 degF Temperature Post -Dialysis 97.3 degF June 27, 2022 In-Center Hemodialysis Treatment [id number]:52:00.000Z [id number]:22:44.000Z BP Sitting (Pre-Dialysis) 160/100 mmHg BP Sitting (Post-Dialysis) 162/102 mmHg Concurrent Access: falseAV Graft Upper Arm (Right) Arterial BP Standing (Pre-Dialysis) 171/98 mmHg BP Standing (P ost-Dialysis) 128/102 mmHg Sitting Heart Rate Pre-Dialysis 99 BPM Sitting Heart Rate Post-Dialysis 94 BPM Standing Heart Rate Pre-Dialysis 99 BPM Standing Heart Rate Post-Dialysis 80 BPM Temperature Pre-Dialysis 98.3 degF Temperature Post -Dialysis 98 degF June 24, 2022 In-Center Hemodialysis Treatment [id number]:23:00.000Z [id number]:02:40.000Z BP Sitting (Pre-Dialysis) 164/98 mmHg BP Sitting (Post-Dialysis) 132/93 mmHg Concurrent Access: falseAV Graft Upper Arm (Right) Arterial BP Standing (Pre-Dialysis) 154/98 mmHg BP Standing (P ost-Dialysis) 120/53 mmHg Sitting Heart Rate Pre-Dialysis 79 BPM Sitting Heart Rate Post-Dialysis 86 BPM Standing Heart Rate Pre-Dialysis 79 BPM Standing Heart Rate Post-Dialysis 71 BPM Temperature Pre-Dialysis 95 degF Temperature Post -Dialysis 98 degF June 22, 2022 In-Center Hemodialysis Treatment [id number]:01:00.000Z [id number]:31:16.000Z BP Sitting (Pre-Dialysis) 170/108 mmHg BP Sitting (Post-Dialysis) 155/98 mmHg Concurrent Access: falseAV Graft Upper Arm (Right) Arterial BP Standing (Pre-Dialysis) 176/119 mmHg BP Standing (P ost-Dialysis) 135/85 mmHg Sitting Heart Rate Pre-Dialysis 88 BPM Sitting Heart Rate Post-Dialysis 93 BPM Standing Heart Rate Pre-Dialysis 91 BPM Standing Heart Rate Post-Dialysis 103 BPM Temperature Pre-Dialysis 96.5 degF Temperature Post -Dialysis 98 degF June 20, 2022 In-Center Hemodialysis Treatment [id number]:59:12.000Z [id number]:34:13.000Z BP Sitting (Pre-Dialysis) 167/108 mmHg BP Sitting (Post-Dialysis) 142/82 mmHg Concurrent Access: falseAV Graft Upper Arm (Right) Arterial BP Standing (Pre-Dialysis) 175/105 mmHg BP Standing (P ost-Dialysis) 111/95 mmHg Sitting Heart Rate Pre-Dialysis 95 BPM Sitting Heart Rate Post-Dialysis 96 BPM Standing Heart Rate Pre-Dialysis 95 BPM Standing Heart Rate Post-Dialysis 73 BPM Temperature Pre-Dialysis 97.1 degF Temperature Post -Dialysis 98.3 degF June 17, 2022 In-Center Hemodialysis Treatment [id number]:52:00.000Z 2048-03-10N72:24:00.000Z BP Sitting (Pre-Dialysis) 159/96 mmHg BP Sitting (Post-Dialysis) 132/86 mmHg Concurrent Access: falseAV Graft Upper Arm (Right) Arterial BP Standing (Pre-Dialysis) 150/94 mmHg BP Standing (P ost-Dialysis) 133/96 mmHg Sitting Heart Rate Pre-Dialysis 89 BPM Sitting Heart Rate Post-Dialysis 88 BPM Standing Heart Rate Pre-Dialysis 94 BPM Standing Heart Rate Post-Dialysis 71 BPM Temperature Pre-Dialysis 97.9 degF Temperature Post -Dialysis 97.7 degF June 15, 2022 In-Center Hemodialysis Treatment [id number]:33:20.000Z [id number]:07:36.000Z BP Sitting (Pre-Dialysis) 168/109 mmHg BP Sitting (Post-Dialysis) 142/98 mmHg Concurrent Access: falseAV Graft Upper Arm (Right) Arterial BP Standing (Pre-Dialysis) 182/115 mmHg BP Standing (P ost-Dialysis) 118/80 mmHg Sitting Heart Rate Pre-Dialysis 92 BPM Sitting Heart Rate Post-Dialysis 98 BPM Standing Heart Rate Pre-Dialysis 106 BPM Standing Heart Rate Post-Dialysis 60 BPM Temperature Pre-Dialysis 97.6 degF Temperature Post -Dialysis 98 degF June 13, 2022 In-Center Hemodialysis Treatment [id number]:56:00.000Z 0923-11-90T30:28:46.000Z BP Sitting (Pre-Dialysis) 150/105 mmHg BP Sitting (Post-Dialysis) 150/98 mmHg Concurrent Access: falseAV Graft Upper Arm (Right) Arterial BP Standing (Pre-Dialysis) 168/107 mmHg BP Standing (P ost-Dialysis) 120/79 mmHg Sitting Heart Rate Pre-Dialysis 95 BPM Sitting Heart Rate Post-Dialysis 81 BPM Standing Heart Rate Pre-Dialysis 98 BPM Standing Heart Rate Post-Dialysis 91 BPM Temperature Pre-Dialysis 96.7 degF June 10, 2022 In-Center Hemodialysis Treatment 5038-31-08V10:46:00.000Z [id number]:17:20.000Z BP Sitting (Pre-Dialysis) 179/99 mmHg BP Sitting (Post-Dialysis) 148/80 mmHg Concurrent Access: falseAV Graft Upper Arm (Right) Arterial BP Standing (Pre-Dialysis) 168/94 mmHg Sitti ng Heart Rate Post-Dialysis 93 BPM Sitting Heart Rate Pre-Dialysis 91 BPM Temperatu re Post-Dialysis 98.7 degF Standing Heart Rate Pre-Dialysis 85 BPM Temperature Pre-Dialysis 98 degF June 08, 2022 In-Center Hemodialysis Treatment [id number]:51:00.000Z 0365-14-11V19:45:13.000Z BP Sitting (Pre-Dialysis) 142/92 mmHg BP Sitting (Post-Dialysis) 116/68 mmHg Concurrent Access: falseAV Graft Upper Arm (Right) Arterial BP Standing (Pre-Dialysis) 156/81 mmHg Sitti ng Heart Rate Post-Dialysis 82 BPM Sitting Heart Rate Pre-Dialysis 90 BPM Temperatu re Post-Dialysis 96.8 degF Standing Heart Rate Pre-Dialysis 91 BPM Temperature Pre-Dialysis 97.4 degF June 06, 2022 In-Center Hemodialysis Treatment [id number]:45:00.000Z 7097-65-08P71:26:25.000Z BP Sitting (Pre-Dialysis) 159/105 mmHg BP Sitting (Post-Dialysis) 142/89 mmHg Concurrent Access: falseAV Graft Upper Arm (Right) Arterial BP Standing (Pre-Dialysis) 163/103 mmHg Sitti ng Heart Rate Post-Dialysis 80 BPM Sitting Heart Rate Pre-Dialysis 91 BPM Temperatu re Post-Dialysis 97.2 degF Standing Heart Rate Pre-Dialysis 95 BPM Temperature Pre-Dialysis 97.7 degF June 05, 2022 Sequential Treatment [id number]:15:00.000Z [id number]:08:36.000Z BP Sitting (Pre-Dialysis) 157/105 mmHg BP Sitting (Post-Dialysis) 164/109 mmHg Concurrent Access: falseAV Graft Upper Arm (Right) Arterial BP Standing (Pre-Dialysis) 158/108 mmHg BP Standing (P ost-Dialysis) 148/93 mmHg Sitting Heart Rate Pre-Dialysis 101 BPM Sitting Heart Rate Post-Dialysis 70 BPM Standing Heart Rate Pre-Dialysis 99 BPM Standing Heart Rate Post-Dialysis 82 BPM Temperature Pre-Dialysis 98 degF June 03, 2022 In-Center Hemodialysis Treatment [id number]:35:00.000Z 7187-14-51W72:14:18.000Z BP Sitting (Pre-Dialysis) 165/104 mmHg BP Sitting (Post-Dialysis) 142/118 mmHg Concurrent Access: falseAV Graft Upper Arm (Right) Arterial BP Standing (Pre-Dialysis) 160/100 mmHg BP Standing (P ost-Dialysis) 125/80 mmHg Sitting Heart Rate Pre-Dialysis 98 BPM Sitting Heart Rate Post-Dialysis 90 BPM Standing Heart Rate Pre-Dialysis 100 BPM Standing Heart Rate Post-Dialysis 93 BPM Temperature Pre-Dialysis 97.5 degF 2022 In-Center Hemodialysis Treatment [id number]:11:00.000Z [id number]:42:23.000Z BP Sitting (Pre-Dialysis) 148/93 mmHg BP Sitting (Post-Dialysis) 144/89 mmHg Concurrent Access: falseAV Graft Upper Arm (Right) Arterial Sitting Heart Rate Pre-Dialysis 101 BPM Sitting H eart Rate Post-Dialysis 81 BPM Temperature Pre-Dialysis 97.5 degF Temperature Post -Dialysis 97.8 degF May 30, 2022 In-Center Hemodialysis Treatment 7824-51-31H14:43:00.000Z 5425-81-24T45:14:05.000Z BP Sitting (Pre-Dialysis) 148/95 mmHg BP Sitting (Post-Dialysis) 135/96 mmHg Concurrent Access: falseAV Graft Upper Arm (Right) Arterial BP Standing (Pre-Dialysis) 149/88 mmHg BP Standing (P ost-Dialysis) 103/65 mmHg Sitting Heart Rate Pre-Dialysis 93 BPM Sitting Heart Rate Post-Dialysis 91 BPM Standing Heart Rate Pre-Dialysis 92 BPM Standing Heart Rate Post-Dialysis 103 BPM Temperature Pre-Dialysis 97.5 degF Temperature Post -Dialysis 97.9 degF May 27, 2022 In-Center Hemodialysis Treatment 9634-23-06O78:01:29.000Z 0023-85-99O19:35:40.000Z BP Sitting (Pre-Dialysis) 182/123 mmHg BP Sitting (Post-Dialysis) 136/60 mmHg Concurrent Access: falseAV Graft Upper Arm (Right) Arterial BP Standing (Pre-Dialysis) 161/97 mmHg Sitti ng Heart Rate Post-Dialysis 54 BPM Sitting Heart Rate Pre-Dialysis 105 BPM Temperatu re Post-Dialysis 98.3 degF Standing Heart Rate Pre-Dialysis 104 BPM Temperature Pre-Dialysis 97.6 degF May 24, 2022 In-Center Hemodialysis Treatment [id number]:44:45.000Z 5448-15-97F49:19:00.000Z BP Sitting (Pre-Dialysis) 157/102 mmHg BP Sitting (Post-Dialysis) 132/81 mmHg Concurrent Access: falseAV Graft Upper Arm (Right) Arterial BP Standing (Pre-Dialysis) 151/105 mmHg BP Standing (P ost-Dialysis) 142/71 mmHg Sitting Heart Rate Pre-Dialysis 105 BPM Sitting Heart Rate Post-Dialysis 90 BPM Standing Heart Rate Pre-Dialysis 108 BPM Standing Heart Rate Post-Dialysis 86 BPM Temperature Pre-Dialysis 98.3 degF Temperature Post -Dialysis 98.1 degF May 22, 2022 In-Center Hemodialysis Treatment 0031-64-13S63:42:00.000Z 6757-58-58Y72:17:22.000Z BP Sitting (Pre-Dialysis) 156/112 mmHg BP Sitting (Post-Dialysis) 150/101 mmHg Concurrent Access: falseAV Graft Upper Arm (Right) Arterial Sitting Heart Rate Pre-Dialysis 92 BPM BP Standi ng (Post-Dialysis) 144/86 mmHg Temperature Pre-Dialysis 98 degF Sitting Heart Ra te Post-Dialysis 85 BPM Standing Heart Rate Post-Cuca lysis 96 BPM Temperature Post-Dialysis 98 .4 degF May 20, 2022 In-Center Hemodialysis Treatment [id number]:45:00.000Z [id number]:20:40.000Z BP Sitting (Pre-Dialysis) 171/106 mmHg BP Sitting (Post-Dialysis) 138/93 mmHg Concurrent Access: falseAV Graft Upper Arm (Right) Arterial BP Standing (Pre-Dialysis) 166/98 mmHg BP Standing (P ost-Dialysis) 142/77 mmHg Sitting Heart Rate Pre-Dialysis 100 BPM Sitting Heart Rate Post-Dialysis 82 BPM Standing Heart Rate Pre-Dialysis 88 BPM Standing Heart Rate Post-Dialysis 95 BPM Temperature Pre-Dialysis 98 degF Temperature Post -Dialysis 97.8 degF May 18, 2022 In-Center Hemodialysis Treatment 5059-30-14C56:47:00.000Z 0747-61-71O94:14:29.000Z BP Sitting (Pre-Dialysis) 156/74 mmHg BP Sitting (Post-Dialysis) 149/95 mmHg Concurrent Access: falseAV Graft Upper Arm (Right) Arterial BP Standing (Pre-Dialysis) 156/94 mmHg Sitti ng Heart Rate Post-Dialysis 80 BPM Sitting Heart Rate Pre-Dialysis 80 BPM Temperatu re Post-Dialysis 98.2 degF Standing Heart Rate Pre-Dialysis 95 BPM Temperature Pre-Dialysis 97.4 degF May 16, 2022 In-Center Hemodialysis Treatment 5729-52-29L69:48:13.000Z 5174-16-06A49:19:13.000Z BP Sitting (Pre-Dialysis) 161/98 mmHg BP Sitting (Post-Dialysis) 141/99 mmHg Concurrent Access: falseAV Graft Upper Arm (Right) Arterial BP Standing (Pre-Dialysis) 167/95 mmHg BP Standing (P ost-Dialysis) 124/81 mmHg Sitting Heart Rate Pre-Dialysis 90 BPM Sitting Heart Rate Post-Dialysis 82 BPM Standing Heart Rate Pre-Dialysis 96 BPM Standing Heart Rate Post-Dialysis 90 BPM Temperature Pre-Dialysis 98 degF Temperature Post -Dialysis 98.2 degF May 13, 2022 In-Center Hemodialysis Treatment 3071-07-47U76:38:00.000Z 8627-87-51K91:06:46.000Z BP Sitting (Pre-Dialysis) 163/100 mmHg BP Sitting (Post-Dialysis) 150/95 mmHg Concurrent Access: falseAV Graft Upper Arm (Right) Arterial BP Standing (Pre-Dialysis) 161/104 mmHg BP Standing (P ost-Dialysis) 134/89 mmHg Sitting Heart Rate Pre-Dialysis 99 BPM Sitting Heart Rate Post-Dialysis 91 BPM Standing Heart Rate Pre-Dialysis 101 BPM Standing Heart Rate Post-Dialysis 96 BPM Temperature Pre-Dialysis 97.9 degF Temperature Post -Dialysis 97.9 degF May 11, 2022 In-Center Hemodialysis Treatment 3489-06-71O42:50:00.000Z [id number]:20:36.000Z BP Sitting (Pre-Dialysis) 168/95 mmHg BP Sitting (Post-Dialysis) 150/85 mmHg Concurrent Access: falseAV Graft Upper Arm (Right) Arterial BP Standing (Pre-Dialysis) 164/109 mmHg BP Standing (P ost-Dialysis) 151/92 mmHg Sitting Heart Rate Pre-Dialysis 102 BPM Sitting Heart Rate Post-Dialysis 94 BPM Standing Heart Rate Pre-Dialysis 104 BPM Standing Heart Rate Post-Dialysis 99 BPM Temperature Pre-Dialysis 98.3 degF May 09, 2022 In-Center Hemodialysis Treatment [id number]:47:28.000Z 2697-07-10T79:21:44.000Z BP Sitting (Pre-Dialysis) 165/113 mmHg BP Sitting (Post-Dialysis) 150/89 mmHg Concurrent Access: falseAV Graft Upper Arm (Right) Arterial BP Standing (Pre-Dialysis) 165/101 mmHg Sitti ng Heart Rate Post-Dialysis 81 BPM Sitting Heart Rate Pre-Dialysis 80 BPM Temperatu re Post-Dialysis 97.1 degF Standing Heart Rate Pre-Dialysis 81 BPM Temperature Pre-Dialysis 97.9 degF May 06, 2022 In-Center Hemodialysis Treatment 6342-77-89K45:41:00.000Z 1262-28-28T74:02:13.000Z BP Sitting (Pre-Dialysis) 149/85 mmHg BP Sitting (Post-Dialysis) 122/77 mmHg Concurrent Access: falseAV Graft Upper Arm (Right) Arterial BP Standing (Pre-Dialysis) 148/86 mmHg Sitti ng Heart Rate Post-Dialysis 66 BPM Sitting Heart Rate Pre-Dialysis 80 BPM Temperatu re Post-Dialysis 96.5 degF Standing Heart Rate Pre-Dialysis 81 BPM Temperature Pre-Dialysis 97.1 degF May 04, 2022 In-Center Hemodialysis Treatment 4612-56-35P75:51:09.000Z 0705-90-15W70:23:39.000Z BP Sitting (Pre-Dialysis) 151/84 mmHg BP Sitting (Post-Dialysis) 120/87 mmHg Concurrent Access: falseAV Graft Upper Arm (Right) Arterial BP Standing (Pre-Dialysis) 148/92 mmHg Sitti ng Heart Rate Post-Dialysis 72 BPM Sitting Heart Rate Pre-Dialysis 80 BPM Temperatu re Post-Dialysis 97.7 degF Standing Heart Rate Pre-Dialysis 82 BPM Temperature Pre-Dialysis 98 degF May 02, 2022 In-Center Hemodialysis Treatment 6291-32-02P52:46:28.000Z 2857-87-27V34:20:59.000Z BP Sitting (Pre-Dialysis) 160/100 mmHg BP Sitting (Post-Dialysis) 145/88 mmHg Concurrent Access: falseAV Graft Upper Arm (Right) Arterial BP Standing (Pre-Dialysis) 159/95 mmHg BP Standing (P ost-Dialysis) 110/78 mmHg Sitting Heart Rate Pre-Dialysis 94 BPM Sitting Heart Rate Post-Dialysis 85 BPM Standing Heart Rate Pre-Dialysis 91 BPM Standing Heart Rate Post-Dialysis 64 BPM Temperature Pre-Dialysis 95.9 degF Temperature Post -Dialysis 98 degF April 29, 2022 In-Center Hemodialysis Treatment 2059-39-20C07:50:00.000Z 6091-79-37J14:21:57.000Z BP Sitting (Pre-Dialysis) 154/96 mmHg BP Sitting (Post-Dialysis) 133/91 mmHg Concurrent Access: falseAV Graft Upper Arm (Right) Arterial Sitting Heart Rate Pre-Dialysis 81 BPM BP Standing (Post-Dialysis) 116/80 mmHg Temperature Pre-Dialysis 97.6 degF Sitting Heart Ra te Post-Dialysis 94 BPM Standing Heart Rate Post-Cuca lysis 102 BPM April 27, 2022 In-Center Hemodialysis Treatment [id number]:48:00.000Z 1643-81-29T53:18:50.000Z BP Sitting (Pre-Dialysis) 173/106 mmHg BP Sitting (Post-Dialysis) 149/97 mmHg Concurrent Access: falseAV Graft Upper Arm (Right) Arterial BP Standing (Pre-Dialysis) 178/108 mmHg Sitti ng Heart Rate Post-Dialysis 85 BPM Sitting Heart Rate Pre-Dialysis 90 BPM Temperatu re Post-Dialysis 97.8 degF Standing Heart Rate Pre-Dialysis 94 BPM Temperature Pre-Dialysis 98.2 degF April 25, 2022 In-Center Hemodialysis Treatment [id number]:49:28.000Z 5391-01-10D65:21:29.000Z BP Sitting (Pre-Dialysis) 149/96 mmHg BP Sitting (Post-Dialysis) 142/92 mmHg Concurrent Access: falseAV Graft Upper Arm (Right) Arterial BP Standing (Pre-Dialysis) 151/95 mmHg BP Standing (P ost-Dialysis) 117/79 mmHg Sitting Heart Rate Pre-Dialysis 81 BPM Sitting Heart Rate Post-Dialysis 79 BPM Standing Heart Rate Pre-Dialysis 93 BPM Standing Heart Rate Post-Dialysis 99 BPM Temperature Pre-Dialysis 98.3 degF Temperature Post -Dialysis 97.9 degF April 20, 2022 In-Center Hemodialysis Treatment 3535-59-04N41:51:00.000Z 5046-50-85Z07:25:59.000Z BP Sitting (Pre-Dialysis) 162/100 mmHg BP Sitting (Post-Dialysis) 131/80 mmHg Concurrent Access: falseAV Graft Upper Arm (Right) Arterial BP Standing (Pre-Dialysis) 174/104 mmHg BP Standing (P ost-Dialysis) 117/67 mmHg Sitting Heart Rate Pre-Dialysis 81 BPM Sitting Heart Rate Post-Dialysis 93 BPM Standing Heart Rate Pre-Dialysis 80 BPM Standing Heart Rate Post-Dialysis 100 BPM Temperature Pre-Dialysis 98 degF Temperature Post -Dialysis 98.2 degF April 18, 2022 In-Center Hemodialysis Treatment [id number]:30:00.000Z 3251-08-38K74:04:22.000Z BP Sitting (Pre-Dialysis) 162/105 mmHg BP Sitting (Post-Dialysis) 156/82 mmHg Concurrent Access: falseAV Graft Upper Arm (Right) Arterial BP Standing (Pre-Dialysis) 176/110 mmHg BP Standing (P ost-Dialysis) 130/75 mmHg Sitting Heart Rate Pre-Dialysis 80 BPM Sitting Heart Rate Post-Dialysis 90 BPM Standing Heart Rate Pre-Dialysis 85 BPM Standing Heart Rate Post-Dialysis 97 BPM Temperature Pre-Dialysis 97.1 degF Temperature Post -Dialysis 97.4 degF April 15, 2022 In-Center Hemodialysis Treatment [id number]:44:00.000Z 5890-68-77S17:13:44.000Z BP Sitting (Pre-Dialysis) 157/99 mmHg BP Sitting (Post-Dialysis) 120/81 mmHg Concurrent Access: falseAV Graft Upper Arm (Right) Arterial BP Standing (Pre-Dialysis) 140/85 mmHg Sitti ng Heart Rate Post-Dialysis 91 BPM Sitting Heart Rate Pre-Dialysis 79 BPM Temperatu re Post-Dialysis 97.6 degF Standing Heart Rate Pre-Dialysis 82 BPM Temperature Pre-Dialysis 97.6 degF April 13, 2022 In-Center Hemodialysis Treatment 4661-91-91S85:00:00.000Z 2973-60-88B10:37:36.000Z BP Sitting (Pre-Dialysis) 156/95 mmHg BP Sitting (Post-Dialysis) 150/86 mmHg Concurrent Access: falseAV Graft Upper Arm (Right) Arterial BP Standing (Pre-Dialysis) 140/85 mmHg BP Standing (P ost-Dialysis) 149/81 mmHg Sitting Heart Rate Pre-Dialysis 85 BPM Sitting Heart Rate Post-Dialysis 91 BPM Standing Heart Rate Pre-Dialysis 86 BPM Standing Heart Rate Post-Dialysis 99 BPM Temperature Pre-Dialysis 96.6 degF Temperature Post -Dialysis 98 degF April 11, 2022 In-Center Hemodialysis Treatment 8077-53-71B68:52:00.000Z 2913-21-60U83:23:25.000Z BP Sitting (Pre-Dialysis) 144/89 mmHg BP Sitting (Post-Dialysis) 134/89 mmHg Concurrent Access: falseAV Graft Upper Arm (Right) Arterial BP Standing (Pre-Dialysis) 159/88 mmHg Sitting Heart Rate Post-Dialysis 78 BPM Sitting Heart Rate Pre-Dialysis 74 BPM Temperatu re Post-Dialysis 98 degF Standing Heart Rate Pre-Dialysis 79 BPM Temperature Pre-Dialysis 98.2 degF April 08, 2022 In-Center Hemodialysis Treatment 8693-00-12P76:53:00.000Z 5034-72-64I34:25:26.000Z BP Sitting (Pre-Dialysis) 149/83 mmHg BP Sitting (Post-Dialysis) 140/81 mmHg Concurrent Access: falseAV Graft Upper Arm (Right) Arterial BP Standing (Pre-Dialysis) 122/76 mmHg Sitting Heart Rate Post-Dialysis 71 BPM Sitting Heart Rate Pre-Dialysis 80 BPM Temperatu re Post-Dialysis 98 degF Standing Heart Rate Pre-Dialysis 80 BPM Temperature Pre-Dialysis 98 degF April 06, 2022 In-Center Hemodialysis Treatment 0488-37-23Y33:51:00.000Z 4750-58-51N42:14:41.000Z BP Sitting (Pre-Dialysis) 150/96 mmHg BP Sitting (Post-Dialysis) 146/98 mmHg Concurrent Access: falseAV Graft Upper Arm (Right) Arterial Sitting Heart Rate Pre-Dialysis 82 BPM BP Standing (Post-Dialysis) 133/76 mmHg Temperature Pre-Dialysis 97.3 degF Sitting Heart Ra te Post-Dialysis 80 BPM Standing Heart Rate Post-Cuca lysis 88 BPM Temperature Post-Dialysis 97 .7 degF April 04, 2022 In-Center Hemodialysis Treatment [id number]:50:00.000Z 3765-02-38A90:23:57.000Z BP Sitting (Pre-Dialysis) 166/81 mmHg BP Sitting (Post-Dialysis) 128/84 mmHg Concurrent Access: falseAV Graft Upper Arm (Right) Arterial BP Standing (Pre-Dialysis) 132/86 mmHg BP Standing (P ost-Dialysis) 108/68 mmHg Sitting Heart Rate Pre-Dialysis 78 BPM Sitting Heart Rate Post-Dialysis 82 BPM Standing Heart Rate Pre-Dialysis 70 BPM Standing Heart Rate Post-Dialysis 101 BPM Temperature Pre-Dialysis 97 degF Temperature Post -Dialysis 98.2 degF April 01, 2022 In-Center Hemodialysis Treatment 9616-31-17B71:16:00.000Z 0349-58-00A05:47:32.000Z BP Sitting (Pre-Dialysis) 143/89 mmHg BP Sitting (Post-Dialysis) 134/94 mmHg Concurrent Access: falseAV Graft Upper Arm (Right) Arterial BP Standing (Pre-Dialysis) 139/71 mmHg BP Standing (P ost-Dialysis) 116/78 mmHg Sitting Heart Rate Pre-Dialysis 67 BPM Sitting Heart Rate Post-Dialysis 80 BPM Standing Heart Rate Pre-Dialysis 96 BPM Standing Heart Rate Post-Dialysis 91 BPM Temperature Pre-Dialysis 97.6 degF Temperature Post -Dialysis 97.5 degF March 30, 2022 In-Center Hemodialysis Treatment [id number]:50:00.000Z 0000-64-26X18:25:11.000Z BP Sitting (Pre-Dialysis) 152/95 mmHg BP Sitting (Post-Dialysis) 152/96 mmHg Concurrent Access: falseAV Graft Upper Arm (Right) Arterial BP Standing (Pre-Dialysis) 150/97 mmHg BP Standing (P ost-Dialysis) 152/76 mmHg Sitting Heart Rate Pre-Dialysis 74 BPM Sitting Heart Rate Post-Dialysis 80 BPM Standing Heart Rate Pre-Dialysis 80 BPM Standing Heart Rate Post-Dialysis 88 BPM Temperature Pre-Dialysis 97.8 degF Temperature Post -Dialysis 98 degF March 28, 2022 In-Center Hemodialysis Treatment 5427-40-77S74:16:00.000Z 5675-45-14L00:45:05.000Z BP Sitting (Pre-Dialysis) 149/88 mmHg BP Sitting (Post-Dialysis) 151/95 mmHg Concurrent Access: falseAV Graft Upper Arm (Right) Arterial BP Standing (Pre-Dialysis) 150/97 mmHg BP Standing (P ost-Dialysis) 118/76 mmHg Sitting Heart Rate Pre-Dialysis 73 BPM Sitting Heart Rate Post-Dialysis 71 BPM Standing Heart Rate Pre-Dialysis 98 BPM Standing Heart Rate Post-Dialysis 93 BPM Temperature Pre-Dialysis 97.8 degF Temperature Post -Dialysis 98.1 degF March 25, 2022 In-Center Hemodialysis Treatment [id number]:53:00.000Z [id number]:23:10.000Z BP Sitting (Pre-Dialysis) 159/101 mmHg BP Sitting (Post-Dialysis) 135/85 mmHg Concurrent Access: falseAV Graft Upper Arm (Right) Arterial BP Standing (Pre-Dialysis) 150/96 mmHg Sitting Heart Rate Post-Dialysis 90 BPM Sitting Heart Rate Pre-Dialysis 88 BPM Standing Heart Rate Pre-Dialysis 88 BPM Temperature Pre-Dialysis 98.4 degF March 23, 2022 In-Center Hemodialysis Treatment [id number]:12.000Z [id number]:07.000Z BP Sitting (Pre-Dialysis) 140/79 mmHg BP Sitting (Post-Dialysis) 142/84 mmHg Concurrent Access: falseAV Graft Upper Arm (Right) Arterial BP Standing (Pre-Dialysis) 138/84 mmHg BP Standing (P ost-Dialysis) 136/79 mmHg Sitting Heart Rate Pre-Dialysis 80 BPM Sitting Heart Rate Post-Dialysis 60 BPM Standing Heart Rate Pre-Dialysis 85 BPM Standing Heart Rate Post-Dialysis 91 BPM Temperature Pre-Dialysis 98 degF Temperature Post -Dialysis 97.7 degF March 21, 2022 In-Center Hemodialysis Treatment [id number]:51:00.000Z [id number]:02:54.000Z BP Sitting (Pre-Dialysis) 162/99 mmHg BP Sitting (Post-Dialysis) 164/101 mmHg Concurrent Access: falseAV Graft Upper Arm (Right) Arterial BP Standing (Pre-Dialysis) 162/108 mmHg Sitti ng Heart Rate Post-Dialysis 80 BPM Sitting Heart Rate Pre-Dialysis 90 BPM Temperatu re Post-Dialysis 98 degF Standing Heart Rate Pre-Dialysis 90 BPM Temperature Pre-Dialysis 97.8 degF March 18, 2022 In-Center Hemodialysis Treatment [id number]:09:00.000Z [id number]:39:54.000Z BP Sitting (Pre-Dialysis) 164/98 mmHg BP Sitting (Post-Dialysis) 157/97 mmHg Concurrent Access: falseAV Graft Upper Arm (Right) Arterial BP Standing (Pre-Dialysis) 156/107 mmHg BP Standing (P ost-Dialysis) 132/94 mmHg Sitting Heart Rate Pre-Dialysis 82 BPM Sitting Heart Rate Post-Dialysis 79 BPM Standing Heart Rate Pre-Dialysis 79 BPM Standing Heart Rate Post-Dialysis 77 BPM Temperature Pre-Dialysis 98 degF Temperature Post -Dialysis 97.6 degF March 17, 2022 In-Center Hemodialysis Treatment [id number]:20:00.000Z [id number]:56:36.000Z BP Sitting (Pre-Dialysis) 191/122 mmHg BP Sitting (Post-Dialysis) 138/81 mmHg Concurrent Access: falseAV Graft Upper Arm (Right) Arterial BP Standing (Pre-Dialysis) 165/102 mmHg Sitti ng Heart Rate Post-Dialysis 81 BPM Sitting Heart Rate Pre-Dialysis 91 BPM Temperatu re Post-Dialysis 97.6 degF Standing Heart Rate Pre-Dialysis 73 BPM Temperature Pre-Dialysis 98 degF March 09, 2022 In-Center Hemodialysis Treatment [id number]:02:00.000Z [id number]:32:15.000Z BP Sitting (Pre-Dialysis) 164/104 mmHg BP Sitting (Post-Dialysis) 137/85 mmHg Concurrent Access: falseAV Graft Upper Arm (Right) Arterial BP Standing (Pre-Dialysis) 157/98 mmHg BP Standing (P ost-Dialysis) 122/80 mmHg Sitting Heart Rate Pre-Dialysis 78 BPM Sitting Heart Rate Post-Dialysis 79 BPM Standing Heart Rate Pre-Dialysis 71 BPM Standing Heart Rate Post-Dialysis 80 BPM Temperature Pre-Dialysis 98 degF Temperature Post -Dialysis 97.7 degF March 07, 2022 In-Center Hemodialysis Treatment [id number]:52:00.000Z [id number]:13:56.000Z BP Sitting (Pre-Dialysis) 156/93 mmHg BP Sitting (Post-Dialysis) 133/92 mmHg Concurrent Access: falseAV Graft Upper Arm (Right) Arterial BP Standing (Pre-Dialysis) 165/98 mmHg Sitti ng Heart Rate Post-Dialysis 72 BPM Sitting Heart Rate Pre-Dialysis 71 BPM Temperatu re Post-Dialysis 97.9 degF Standing Heart Rate Pre-Dialysis 79 BPM Temperature Pre-Dialysis 97.5 degF March 04, 2022 In-Center Hemodialysis Treatment [id number]:48:00.000Z [id number]:20:01.000Z BP Sitting (Pre-Dialysis) 166/102 mmHg BP Sitting (Post-Dialysis) 135/74 mmHg Concurrent Access: falseAV Graft Upper Arm (Right) Arterial BP Standing (Pre-Dialysis) 147/84 mmHg BP Standing (P ost-Dialysis) 128/78 mmHg Sitting Heart Rate Pre-Dialysis 73 BPM Sitting Heart Rate Post-Dialysis 73 BPM Standing Heart Rate Pre-Dialysis 80 BPM Standing Heart Rate Post-Dialysis 82 BPM Temperature Pre-Dialysis 97.5 degF Temperature Post -Dialysis 98.2 degF March 02, 2022 In-Center Hemodialysis Treatment [id number]:00:00.000Z [id number]:31:41.000Z BP Sitting (Pre-Dialysis) 148/94 mmHg BP Sitting (Post-Dialysis) 169/101 mmHg Concurrent Access: falseAV Graft Upper Arm (Right) Arterial Sitting Heart Rate Pre-Dialysis 86 BPM BP Standing (Post-Dialysis) 149/91 mmHg Temperature Pre-Dialysis 98.2 degF Sitting Heart Ra te Post-Dialysis 90 BPM Standing Heart Rate Post-Cuca lysis 86 BPM Temperature Post-Dialysis 98 degF February 28, 2022 In-Center Hemodialysis Treatment [id number]:07:00.000Z [id number]:37:33.000Z BP Sitting (Pre-Dialysis) 163/109 mmHg BP Sitting (Post-Dialysis) 150/101 mmHg Concurrent Access: falseAV Graft Upper Arm (Right) Arterial BP Standing (Pre-Dialysis) 158/98 mmHg BP Standing (P ost-Dialysis) 134/89 mmHg Sitting Heart Rate Pre-Dialysis 91 BPM Sitting Heart Rate Post-Dialysis 94 BPM Standing Heart Rate Pre-Dialysis 91 BPM Standing Heart Rate Post-Dialysis 80 BPM Temperature Pre-Dialysis 97.6 degF Temperature Post -Dialysis 97.6 degF DIALYSIS ORDER Dialysis Procedure Orders Type of Dialysis Procedure Order Order Date/Time Observations In-Center Hemodialysis Treatment February 27, 2025 Target Weight 74.5 kg Dialysate Flow Rate 800 mL/min Blood Flow Rate 450 mL/min Treatment Time 225 min(total) Max UF Rate 13 mL/kg/hr Base Sodium Dialysate Base Sodium 138 mE q/L dialysate_temp 37 C BiCarb Dialysate BiCarbonate 35 meq/L Access Concurrent No Arterial Access AV Graft (Upper Arm (Right)) Venous Access AV Graft (Upper Arm (Right)) Arterial Needle Display NIPRO, TULIP, 15 G x 1 , SHARP , TWIN Venous Needle NIPRO, [place], 15G x 1 , SHARP , TWIN Dialyzer Nipro Elisio 17H 145 5 [email or web address] Dialysate Bath Potassium Potassium 2 mEq /L Dialysate Bath Calcium Calcium 2.5 mEq/L In-Center Hemodialysis TreatmentAu2024 Observation Value Target Weight 76 kg Dialysate Flow Rate 800 mL/min Blood Flow Rate 450 mL/min Treatment Time 225 min(total) Max UF Rate 13 mL/kg/hr Base Sodium Dialysate Base Sodium 138 mE q/L dialysate_temp 37 C BiCarb Dialysate BiCarbonate 35 meq/L Access Concurrent No Arterial Access AV Graft (Upper Arm (Right)) Venous Access AV Graft (Upper Arm (Right)) Arterial Needle Display NIPRO, [place], 15 G x 1 , SHARP , TWIN Venous Needle NIPRO, [place], 15G x 1 , SHARP , TWIN Dialyzer Nipro Elisio 17H 145 5 [email or web address] Dialysate Bath Potassium Potassium 2 mEq /L Dialysate Bath Calcium Calcium 2.5 mEq/L In-Center Hemodialysis TreatmentAugust 2024 Observation Value Target Weight 76 kg Dialysate Flow Rate 800 mL/min Blood Flow Rate 450 mL/min Treatment Time 225 min(total) Max UF Rate 13 mL/kg/hr Base Sodium Dialysate Base Sodium 138 mE q/L dialysate_temp 37 C BiCarb Dialysate BiCarbonate 35 meq/L Access Concurrent No Arterial Access AV Graft (Upper Arm (Right)) Venous Access AV Graft (Upper Arm (Right)) Arterial Needle Display NIPRO, [place], 15 G x 1 , SHARP , TWIN Venous Needle NIPRO, [place], 15G x 1 , SHARP , TWIN Dialyzer Nipro Elisio 17H 145 5 [email or web address] Dialysate Bath Potassium Potassium 2 mEq /L Dialysate Bath Calcium Calcium 2.5 mEq/L In-Center Hemodialysis TreatmentJuly 2024 Observation Value Target Weight 77.4 kg Dialysate Flow Rate 800 mL/min Blood Flow Rate 450 mL/min Treatment Time 225 min(total) Max UF Rate 13 mL/kg/hr Base Sodium Dialysate Base Sodium 138 mE q/L dialysate_temp 37 C BiCarb Dialysate BiCarbonate 35 meq/L Access Concurrent No Arterial Access AV Graft (Upper Arm (Right)) Venous Access AV Graft (Upper Arm (Right)) Arterial Needle Display NIPRO, [place], 15 G x 1 , SHARP , TWIN Venous Needle NIPRO, [place], 15G x 1 , SHARP , TWIN Dialyzer Nipro Elisio 17H 145 5 treatment_[email or web address]_id Dialysate Bath Potassium Potassium 2 mEq /L Dialysate Bath Calcium Calcium 2.5 mEq/L Sequential TreatmentJune 2024 Observation Value Target Weight 77.4 kg Dialysate Flow Rate 800 mL/min Blood Flow Rate 200 mL/min Treatment Time 120 min(total) Max UF Rate 13 mL/kg/hr Base Sodium Dialysate Base Sodium 138 mE q/L dialysate_temp 37 C BiCarb Dialysate BiCarbonate 35 meq/L Access Concurrent No Arterial Access AV Graft (Upper Arm (Right)) Venous Access AV Graft (Upper Arm (Right)) Arterial Needle Display NIPRO, [place], 15 G x 1 , SHARP , TWIN Venous Needle NIPRO, [place], 15G x 1 , SHARP , TWIN Dialyzer Nipro Elisio 17H 145 5 treatment_[email or web address]_id In-Center Hemodialysis TreatmentMay 2024 Observation Value Target Weight 77.4 kg Dialysate Flow Rate 800 mL/min Blood Flow Rate 450 mL/min Treatment Time 225 min(total) Max UF Rate 13 mL/kg/hr Base Sodium Dialysate Base Sodium 138 mE q/L dialysate_temp 37 C BiCarb Dialysate BiCarbonate 35 meq/L Access Concurrent No Arterial Access AV Graft (Upper Arm (Right)) Venous Access AV Graft (Upper Arm (Right)) Arterial Needle Display NIPRO, [place], 15 G x 1 , SHARP , TWIN Venous Needle NIPRO, [place], 15G x 1 , SHARP , TWIN Dialyzer Nipro Elisio 17H 145 5 [email or web address] Dialysate Bath Potassium Potassium 2 mEq /L Dialysate Bath Calcium Calcium 2.5 mEq/L In-Center Hemodialysis TreatmentApril 2024 Observation Value Target Weight 80.5 kg Dialysate Flow Rate 800 mL/min Blood Flow Rate 450 mL/min Treatment Time 225 min(total) Max UF Rate 13 mL/kg/hr Base Sodium Dialysate Base Sodium 138 mE q/L dialysate_temp 37 C BiCarb Dialysate BiCarbonate 35 meq/L Access Concurrent No Arterial Access AV Graft (Upper Arm (Right)) Venous Access AV Graft (Upper Arm (Right)) Arterial Needle Display NIPRO, T[place], 15 G x 1 , SHARP , TWIN Venous Needle NIPRO, [place], 15G x 1 , SHARP , TWIN Dialyzer Nipro Elisio 17H 145 5 [email or web address] Dialysate Bath Potassium Potassium 2 mEq /L Dialysate Bath Calcium Calcium 2.5 mEq/L Results Adequacy Description Draw Date Result/Unit Status Ref Range Result Comments Creatinine [Mass/volume] in Serum or Plasma 2025-03-20 13:19:07 7.85 mg/dL F 0.5-1.1 Creatinine [Mass/volume] in Serum or Plasma 2025-03-20 13:19:07 7.85 mg/dL F 0.5-1.1 URR% 2025-03-18 15:01:21 70 % F DIALYZER FLOW-QD 2025-03-18 15:01:21 805 mL/min F Dialyzer DIANA 2025-03-18 15:01:21 1455 Calc F LENGTH OF DIALYSIS 2025-03-18 15:01:21 225 min F BSA LV 2025-03-18 15:01:21 1.86 sq m F PATIENT AGE 2025-03-18 15:01:21 59 Years F WEIGHT - POST DAY 1 2025-03-18 15:01:21 76.1 kg F WEIGHT - PRE DAY 1 2025-03-18 15:01:21 79.5 kg F HEIGHT IN INCHES 2025-03-18 15:01:21 67 Inches F WEIGHT (KG) 2025-03-18 15:01:21 74.5 kg F PRESCRIBED DAYS/WEEK 2025-03-18 15:01:21 3 Day/Wk F VM (KT/V MEAN VOL) 2025-03-18 15:01:21 38.3 F VT (KT/V TX VOL) 2025-03-18 15:01:21 37.2 L F Residual kt/v 2025-03-18 15:01:21 F nPCR 2025-03-18 15:01:21 1.58 G/KG/D F Total Kt/V 2025-03-18 15:01:21 1.47 F KT/V PRESCRIBED 2025-03-18 15:01:21 2.58 F AMPUTATE FACTOR 2025-03-18 15:01:21 0 F spKt/V 2025-03-18 15:01:21 1.47 F TBW ([place]) 2025-03-18 15:01:21 34.86 Liters F stdKt/V (DIAL) 2025-03-18 15:01:21 N/A F eKt/V 2025-03-18 15:01:21 1.26 F TOTAL HOURS/WEEK DIALYSIS 2025-03-18 15:01:21 8 hrs F CURRENT KRU 2025-03-18 15:01:21 F stdKT/V Total 2025-03-18 15:01:21 N/A F Std Renal KT/V 2025-03-18 15:01:21 N/A F BLOOD FLOW-QWB 2025-03-18 15:01:21 292 F Urea nitrogen [Mass/volume] in Serum or Plasma 2025-03-18 14:59:19 83 mg/dL F 9.0-23.0 Urea nitrogen [Mass/volume] in Serum or Plasma --post dialysis 2025-03-18 14:55:16 25 mg/dL F 9.0-23.0 URR% 2025-03-17 16:35:38 see comments F 65.0-100.0 Unable to Calculate.,RECOLLEC T - OUTDATED SPECIMEN Urea nitrogen [Mass/volume] in Serum or Plasma --post dialysis 2025-03-17 16:34:12 24 mg/dL F 9.0-23.0 URR% 2025-03-14 23:30:22 F RECOLLECT - OUTDATED SPECIMEN,Unable to Calculate. Urea nitrogen [Mass/volume] in Serum or Plasma 2025-03-14 23:29:50 F RECOLLECT - OUTDATED SPECIMEN Urea nitrogen [Mass/volume] in Serum or Plasma 2025-03-14 23:29:50 F RECOLLECT - OUTDATED SPECIMEN WEIGHT (KG) 2025-03-14 21:41:19 74.5 kg F HEIGHT IN INCHES 2025-03-14 21:41:19 67 Inches F PATIENT AGE 2025-03-14 21:41:19 59 Years F AMPUTATE FACTOR 2025-03-14 21:41:19 0 F PATIENT AGE 2025-03-14 21:41:19 59 Years F HEIGHT IN INCHES 2025-03-14 21:41:19 67 Inches F WEIGHT (KG) 2025-03-14 21:41:19 74.5 kg F AMPUTATE FACTOR 2025-03-14 21:41:19 0 F Creatinine [Mass/volume] in Serum or Plasma 2025-02-20 18:26:12 8.17 mg/dL F 0.5-1.1 Creatinine [Mass/volume] in Serum or Plasma 2025-02-20 18:26:12 8.17 mg/dL F 0.5-1.1 Creatinine [Mass/volume] in Serum or Plasma 2025-02-20 18:26:12 8.17 mg/dL F 0.5-1.1 WEIGHT (KG) 2025-02-07 03:36:16 76 kg F VM (KT/V MEAN VOL) 2025-02-07 03:36:16 38.7 F WEIGHT - POST DAY 1 2025-02-07 03:36:16 75.6 kg F Total Kt/V 2025-02-07 03:36:16 1.51 F stdKT/V Total 2025-02-07 03:36:16 N/A F Std Renal KT/V 2025-02-07 03:36:16 N/A F PATIENT AGE 2025-02-07 03:36:16 59 Years F BLOOD FLOW-QWB 2025-02-07 03:36:16 392 F Dialyzer DIANA 2025-02-07 03:36:16 1455 Calc F Residual kt/v 2025-02-07 03:36:16 F TBW ([place]) 2025-02-07 03:36:16 34.74 Liters F DIALYZER FLOW-QD 2025-02-07 03:36:16 800 mL/min F BSA LV 2025-02-07 03:36:16 1.88 sq m F stdKt/V (DIAL) 2025-02-07 03:36:16 N/A F CURRENT KRU 2025-02-07 03:36:16 F nPCR 2025-02-07 03:36:16 0.43 G/KG/D F spKt/V 2025-02-07 03:36:16 1.51 F URR% 2025-02-07 03:36:16 77 % F KT/V PRESCRIBED 2025-02-07 03:36:16 2.55 F HEIGHT IN INCHES 2025-02-07 03:36:16 67 Inches F VT (KT/V TX VOL) 2025-02-07 03:36:16 44.5 L F eKt/V 2025-02-07 03:36:16 1.29 F TOTAL HOURS/WEEK DIALYSIS 2025-02-07 03:36:16 3 hrs F AMPUTATE FACTOR 2025-02-07 03:36:16 0 F LENGTH OF DIALYSIS 2025-02-07 03:36:16 225 min F WEIGHT - PRE DAY 1 2025-02-07 03:36:16 75.7 kg F PRESCRIBED DAYS/WEEK 2025-02-07 03:36:16 3 Day/Wk F URR% 2025-02-07 03:36:16 77 % F DIALYZER FLOW-QD 2025-02-07 03:36:16 800 mL/min F Dialyzer DIANA 2025-02-07 03:36:16 1455 Calc F PATIENT AGE 2025-02-07 03:36:16 59 Years F LENGTH OF DIALYSIS 2025-02-07 03:36:16 225 min F BSA LV 2025-02-07 03:36:16 1.88 sq m F WEIGHT - POST DAY 1 2025-02-07 03:36:16 75.6 kg F WEIGHT - PRE DAY 1 2025-02-07 03:36:16 75.7 kg F HEIGHT IN INCHES 2025-02-07 03:36:16 67 Inches F WEIGHT (KG) 2025-02-07 03:36:16 76 kg F PRESCRIBED DAYS/WEEK 2025-02-07 03:36:16 3 Day/Wk F VT (KT/V TX VOL) 2025-02-07 03:36:16 44.5 L F Residual kt/v 2025-02-07 03:36:16 F VM (KT/V MEAN VOL) 2025-02-07 03:36:16 38.7 F Total Kt/V 2025-02-07 03:36:16 1.51 F KT/V PRESCRIBED 2025-02-07 03:36:16 2.55 F AMPUTATE FACTOR 2025-02-07 03:36:16 0 F nPCR 2025-02-07 03:36:16 0.43 G/KG/D F TBW ([place]) 2025-02-07 03:36:16 34.74 Liters F eKt/V 2025-02-07 03:36:16 1.29 F spKt/V 2025-02-07 03:36:16 1.51 F stdKt/V (DIAL) 2025-02-07 03:36:16 N/A F Std Renal KT/V 2025-02-07 03:36:16 N/A F stdKT/V Total 2025-02-07 03:36:16 N/A F TOTAL HOURS/WEEK DIALYSIS 2025-02-07 03:36:16 3 hrs F BLOOD FLOW-QWB 2025-02-07 03:36:16 392 F CURRENT KRU 2025-02-07 03:36:16 F nPCR 2025-02-07 03:36:16 0.43 G/KG/D F TOTAL HOURS/WEEK DIALYSIS 2025-02-07 03:36:16 3 hrs F CURRENT KRU 2025-02-07 03:36:16 F Std Renal KT/V 2025-02-07 03:36:16 N/A F spKt/V 2025-02-07 03:36:16 1.51 F VM (KT/V MEAN VOL) 2025-02-07 03:36:16 38.7 F Residual kt/v 2025-02-07 03:36:16 F eKt/V 2025-02-07 03:36:16 1.29 F KT/V PRESCRIBED 2025-02-07 03:36:16 2.55 F stdKt/V (DIAL) 2025-02-07 03:36:16 N/A F Dialyzer DIANA 2025-02-07 03:36:16 1455 Calc F DIALYZER FLOW-QD 2025-02-07 03:36:16 800 mL/min F WEIGHT (KG) 2025-02-07 03:36:16 76 kg F PATIENT AGE 2025-02-07 03:36:16 59 Years F WEIGHT - PRE DAY 1 2025-02-07 03:36:16 75.7 kg F BLOOD FLOW-QWB 2025-02-07 03:36:16 392 F PRESCRIBED DAYS/WEEK 2025-02-07 03:36:16 3 Day/Wk F LENGTH OF DIALYSIS 2025-02-07 03:36:16 225 min F TBW ([place]) 2025-02-07 03:36:16 34.74 Liters F HEIGHT IN INCHES 2025-02-07 03:36:16 67 Inches F VT (KT/V TX VOL) 2025-02-07 03:36:16 44.5 L F AMPUTATE FACTOR 2025-02-07 03:36:16 0 F URR% 2025-02-07 03:36:16 77 % F BSA LV 2025-02-07 03:36:16 1.88 sq m F stdKT/V Total 2025-02-07 03:36:16 N/A F Total Kt/V 2025-02-07 03:36:16 1.51 F WEIGHT - POST DAY 1 2025-02-07 03:36:16 75.6 kg F Urea nitrogen [Mass/volume] in Serum or Plasma 2025-02-07 03:34:13 56 mg/dL F 9.0-23.0 Urea nitrogen [Mass/volume] in Serum or Plasma 2025-02-07 03:34:13 56 mg/dL F 9.0-23.0 Urea nitrogen [Mass/volume] in Serum or Plasma 2025-02-07 03:34:13 56 mg/dL F 9.0-23.0 Urea nitrogen [Mass/volume] in Serum or Plasma --post dialysis 2025-02-06 16:31:15 13 mg/dL F 9.0-23.0 Urea nitrogen [Mass/volume] in Serum or Plasma --post dialysis 2025-02-06 16:31:15 13 mg/dL F 9.0-23.0 Urea nitrogen [Mass/volume] in Serum or Plasma --post dialysis 2025-02-06 16:31:15 13 mg/dL F 9.0-23.0 Creatinine [Mass/volume] in Serum or Plasma 2025-01-28 16:05:12 8.59 mg/dL F 0.5-1.1 Std Renal KT/V 2025-01-16 13:40:54 N/A F DIALYZER FLOW-QD 2025-01-16 13:40:54 791 mL/min F WEIGHT - POST DAY 1 2025-01-16 13:40:54 77.6 kg F URR% 2025-01-16 13:40:54 76 % F nPCR 2025-01-16 13:40:54 0.54 G/KG/D F WEIGHT - PRE DAY 1 2025-01-16 13:40:54 79.1 kg F stdKT/V Total 2025-01-16 13:40:54 N/A F HEIGHT IN INCHES 2025-01-16 13:40:54 67 Inches F WEIGHT (KG) 2025-01-16 13:40:54 77.4 kg F AMPUTATE FACTOR 2025-01-16 13:40:54 0 F VT (KT/V TX VOL) 2025-01-16 13:40:54 40.7 L F Dialyzer DIANA 2025-01-16 13:40:54 1455 Calc F PATIENT AGE 2025-01-16 13:40:54 59 Years F spKt/V 2025-01-16 13:40:54 1.55 F KT/V PRESCRIBED 2025-01-16 13:40:54 2.55 F TOTAL HOURS/WEEK DIALYSIS 2025-01-16 13:40:54 3 hrs F BLOOD FLOW-QWB 2025-01-16 13:40:54 350 F stdKt/V (DIAL) 2025-01-16 13:40:54 N/A F BSA LV 2025-01-16 13:40:54 1.89 sq m F eKt/V 2025-01-16 13:40:54 1.32 F VM (KT/V MEAN VOL) 2025-01-16 13:40:54 36.8 F PRESCRIBED DAYS/WEEK 2025-01-16 13:40:54 3 Day/Wk F TBW ([place]) 2025-01-16 13:40:54 35.23 Liters F Total Kt/V 2025-01-16 13:40:54 1.55 F LENGTH OF DIALYSIS 2025-01-16 13:40:54 227 min F CURRENT KRU 2025-01-16 13:40:54 F Residual kt/v 2025-01-16 13:40:54 F URR% 2025-01-16 13:40:54 76 % F DIALYZER FLOW-QD 2025-01-16 13:40:54 791 mL/min F Dialyzer DIANA 2025-01-16 13:40:54 1455 Calc F LENGTH OF DIALYSIS 2025-01-16 13:40:54 227 min F PATIENT AGE 2025-01-16 13:40:54 59 Years F BSA LV 2025-01-16 13:40:54 1.89 sq m F WEIGHT - POST DAY 1 2025-01-16 13:40:54 77.6 kg F HEIGHT IN INCHES 2025-01-16 13:40:54 67 Inches F WEIGHT - PRE DAY 1 2025-01-16 13:40:54 79.1 kg F WEIGHT (KG) 2025-01-16 13:40:54 77.4 kg F PRESCRIBED DAYS/WEEK 2025-01-16 13:40:54 3 Day/Wk F VT (KT/V TX VOL) 2025-01-16 13:40:54 40.7 L F Residual kt/v 2025-01-16 13:40:54 F KT/V PRESCRIBED 2025-01-16 13:40:54 2.55 F VM (KT/V MEAN VOL) 2025-01-16 13:40:54 36.8 F Total Kt/V 2025-01-16 13:40:54 1.55 F nPCR 2025-01-16 13:40:54 0.54 G/KG/D F AMPUTATE FACTOR 2025-01-16 13:40:54 0 F TBW ([place]) 2025-01-16 13:40:54 35.23 Liters F spKt/V 2025-01-16 13:40:54 1.55 F eKt/V 2025-01-16 13:40:54 1.32 F stdKt/V (DIAL) 2025-01-16 13:40:54 N/A F Std Renal KT/V 2025-01-16 13:40:54 N/A F stdKT/V Total 2025-01-16 13:40:54 N/A F TOTAL HOURS/WEEK DIALYSIS 2025-01-16 13:40:54 3 hrs F BLOOD FLOW-QWB 2025-01-16 13:40:54 350 F CURRENT KRU 2025-01-16 13:40:54 F Total Kt/V 2025-01-16 13:40:54 1.55 F CURRENT KRU 2025-01-16 13:40:54 F Dialyzer DIANA 2025-01-16 13:40:54 1455 Calc F BSA LV 2025-01-16 13:40:54 1.89 sq m F WEIGHT - PRE DAY 1 2025-01-16 13:40:54 79.1 kg F Std Renal KT/V 2025-01-16 13:40:54 N/A F HEIGHT IN INCHES 2025-01-16 13:40:54 67 Inches F stdKt/V (DIAL) 2025-01-16 13:40:54 N/A F stdKT/V Total 2025-01-16 13:40:54 N/A F WEIGHT (KG) 2025-01-16 13:40:54 77.4 kg F TOTAL HOURS/WEEK DIALYSIS 2025-01-16 13:40:54 3 hrs F VM (KT/V MEAN VOL) 2025-01-16 13:40:54 36.8 F TBW ([place]) 2025-01-16 13:40:54 35.23 Liters F eKt/V 2025-01-16 13:40:54 1.32 F KT/V PRESCRIBED 2025-01-16 13:40:54 2.55 F BLOOD FLOW-QWB 2025-01-16 13:40:54 350 F DIALYZER FLOW-QD 2025-01-16 13:40:54 791 mL/min F LENGTH OF DIALYSIS 2025-01-16 13:40:54 227 min F WEIGHT - POST DAY 1 2025-01-16 13:40:54 77.6 kg F spKt/V 2025-01-16 13:40:54 1.55 F URR% 2025-01-16 13:40:54 76 % F AMPUTATE FACTOR 2025-01-16 13:40:54 0 F PATIENT AGE 2025-01-16 13:40:54 59 Years F nPCR 2025-01-16 13:40:54 0.54 G/KG/D F Residual kt/v 2025-01-16 13:40:54 F VT (KT/V TX VOL) 2025-01-16 13:40:54 40.7 L F PRESCRIBED DAYS/WEEK 2025-01-16 13:40:54 3 Day/Wk F URR% 2025-01-16 13:40:54 76 % F DIALYZER FLOW-QD 2025-01-16 13:40:54 791 mL/min F PATIENT AGE 2025-01-16 13:40:54 59 Years F LENGTH OF DIALYSIS 2025-01-16 13:40:54 227 min F BSA LV 2025-01-16 13:40:54 1.89 sq m F WEIGHT - POST DAY 1 2025-01-16 13:40:54 77.6 kg F Dialyzer DIANA 2025-01-16 13:40:54 1455 Calc F HEIGHT IN INCHES 2025-01-16 13:40:54 67 Inches F WEIGHT (KG) 2025-01-16 13:40:54 77.4 kg F PRESCRIBED DAYS/WEEK 2025-01-16 13:40:54 3 Day/Wk F VT (KT/V TX VOL) 2025-01-16 13:40:54 40.7 L F WEIGHT - PRE DAY 1 2025-01-16 13:40:54 79.1 kg F Residual kt/v 2025-01-16 13:40:54 F VM (KT/V MEAN VOL) 2025-01-16 13:40:54 36.8 F KT/V PRESCRIBED 2025-01-16 13:40:54 2.55 F Total Kt/V 2025-01-16 13:40:54 1.55 F nPCR 2025-01-16 13:40:54 0.54 G/KG/D F AMPUTATE FACTOR 2025-01-16 13:40:54 0 F TBW ([place]) 2025-01-16 13:40:54 35.23 Liters F spKt/V 2025-01-16 13:40:54 1.55 F eKt/V 2025-01-16 13:40:54 1.32 F Std Renal KT/V 2025-01-16 13:40:54 N/A F TOTAL HOURS/WEEK DIALYSIS 2025-01-16 13:40:54 3 hrs F stdKT/V Total 2025-01-16 13:40:54 N/A F stdKt/V (DIAL) 2025-01-16 13:40:54 N/A F BLOOD FLOW-QWB 2025-01-16 13:40:54 350 F CURRENT KRU 2025-01-16 13:40:54 F URR% 2025-01-16 13:40:54 76 % F Dialyzer DIANA 2025-01-16 13:40:54 1455 Calc F LENGTH OF DIALYSIS 2025-01-16 13:40:54 227 min F DIALYZER FLOW-QD 2025-01-16 13:40:54 791 mL/min F PATIENT AGE 2025-01-16 13:40:54 59 Years F BSA LV 2025-01-16 13:40:54 1.89 sq m F WEIGHT - POST DAY 1 2025-01-16 13:40:54 77.6 kg F WEIGHT - PRE DAY 1 2025-01-16 13:40:54 79.1 kg F HEIGHT IN INCHES 2025-01-16 13:40:54 67 Inches F PRESCRIBED DAYS/WEEK 2025-01-16 13:40:54 3 Day/Wk F WEIGHT (KG) 2025-01-16 13:40:54 77.4 kg F VT (KT/V TX VOL) 2025-01-16 13:40:54 40.7 L F VM (KT/V MEAN VOL) 2025-01-16 13:40:54 36.8 F KT/V PRESCRIBED 2025-01-16 13:40:54 2.55 F Residual kt/v 2025-01-16 13:40:54 F Total Kt/V 2025-01-16 13:40:54 1.55 F AMPUTATE FACTOR 2025-01-16 13:40:54 0 F nPCR 2025-01-16 13:40:54 0.54 G/KG/D F TBW ([place]) 2025-01-16 13:40:54 35.23 Liters F spKt/V 2025-01-16 13:40:54 1.55 F eKt/V 2025-01-16 13:40:54 1.32 F stdKt/V (DIAL) 2025-01-16 13:40:54 N/A F Std Renal KT/V 2025-01-16 13:40:54 N/A F stdKT/V Total 2025-01-16 13:40:54 N/A F TOTAL HOURS/WEEK DIALYSIS 2025-01-16 13:40:54 3 hrs F BLOOD FLOW-QWB 2025-01-16 13:40:54 350 F CURRENT KRU 2025-01-16 13:40:54 F Urea nitrogen [Mass/volume] in Serum or Plasma 2025-01-16 13:39:09 76 mg/dL F 9.0-23.0 Urea nitrogen [Mass/volume] in Serum or Plasma 2025-01-16 13:39:09 76 mg/dL F 9.0-23.0 Urea nitrogen [Mass/volume] in Serum or Plasma 2025-01-16 13:39:09 76 mg/dL F 9.0-23.0 Urea nitrogen [Mass/volume] in Serum or Plasma 2025-01-16 13:39:09 76 mg/dL F 9.0-23.0 Urea nitrogen [Mass/volume] in Serum or Plasma 2025-01-16 13:39:09 76 mg/dL F 9.0-23.0 Urea nitrogen [Mass/volume] in Serum or Plasma --post dialysis 2025-01-16 13:18:21 18 mg/dL F 9.0-23.0 Urea nitrogen [Mass/volume] in Serum or Plasma --post dialysis 2025-01-16 13:18:21 18 mg/dL F 9.0-23.0 Urea nitrogen [Mass/volume] in Serum or Plasma --post dialysis 2025-01-16 13:18:21 18 mg/dL F 9.0-23.0 Urea nitrogen [Mass/volume] in Serum or Plasma --post dialysis 2025-01-16 13:18:21 18 mg/dL F 9.0-23.0 Urea nitrogen [Mass/volume] in Serum or Plasma --post dialysis 2025-01-16 13:18:21 18 mg/dL F 9.0-23.0 Creatinine [Mass/volume] in Serum or Plasma 2024-12-19 14:06:19 9.15 mg/dL F 0.5-1.1 Creatinine [Mass/volume] in Serum or Plasma 2024-12-19 14:06:19 9.15 mg/dL F 0.5-1.1 Creatinine [Mass/volume] in Serum or Plasma 2024-12-19 14:06:19 9.15 mg/dL F 0.5-1.1 WEIGHT - POST DAY 1 2024-12-05 20:38:18 77.5 kg F TOTAL HOURS/WEEK DIALYSIS 2024-12-05 20:38:18 11 hrs F Std Renal KT/V 2024-12-05 20:38:18 N/A F KT/V PRESCRIBED 2024-12-05 20:38:18 2.55 F VT (KT/V TX VOL) 2024-12-05 20:38:18 34.7 L F stdKt/V (DIAL) 2024-12-05 20:38:18 N/A F spKt/V 2024-12-05 20:38:18 1.72 F PRESCRIBED DAYS/WEEK 2024-12-05 20:38:18 3 Day/Wk F HEIGHT IN INCHES 2024-12-05 20:38:18 67 Inches F eKt/V 2024-12-05 20:38:18 1.46 F BLOOD FLOW-QWB 2024-12-05 20:38:18 324 F WEIGHT (KG) 2024-12-05 20:38:18 77.4 kg F AMPUTATE FACTOR 2024-12-05 20:38:18 0 F DIALYZER FLOW-QD 2024-12-05 20:38:18 784 mL/min F PATIENT AGE 2024-12-05 20:38:18 59 Years F LENGTH OF DIALYSIS 2024-12-05 20:38:18 227 min F stdKT/V Total 2024-12-05 20:38:18 N/A F URR% 2024-12-05 20:38:18 76 % F VM (KT/V MEAN VOL) 2024-12-05 20:38:18 35.5 F Total Kt/V 2024-12-05 20:38:18 1.72 F CURRENT KRU 2024-12-05 20:38:18 F Unable to calculate: Pre BUN lab result is unknown WEIGHT - PRE DAY 1 2024-12-05 20:38:18 80.3 kg F TBW ([place]) 2024-12-05 20:38:18 35.21 Liters F Residual kt/v 2024-12-05 20:38:18 F Unable to calculate: Pre BUN lab result is unknown nPCR 2024-12-05 20:38:18 1.48 G/KG/D F Dialyzer DIANA 2024-12-05 20:38:18 1455 Calc F BSA LV 2024-12-05 20:38:18 1.89 sq m F Total Kt/V 2024-12-05 20:38:18 1.72 F Std Renal KT/V 2024-12-05 20:38:18 N/A F BSA LV 2024-12-05 20:38:18 1.89 sq m F PRESCRIBED DAYS/WEEK 2024-12-05 20:38:18 3 Day/Wk F DIALYZER FLOW-QD 2024-12-05 20:38:18 784 mL/min F KT/V PRESCRIBED 2024-12-05 20:38:18 2.55 F Dialyzer DIANA 2024-12-05 20:38:18 1455 Calc F AMPUTATE FACTOR 2024-12-05 20:38:18 0 F VM (KT/V MEAN VOL) 2024-12-05 20:38:18 35.5 F WEIGHT - PRE DAY 1 2024-12-05 20:38:18 80.3 kg F WEIGHT - POST DAY 1 2024-12-05 20:38:18 77.5 kg F nPCR 2024-12-05 20:38:18 1.48 G/KG/D F CURRENT KRU 2024-12-05 20:38:18 F Unable to calculate: Pre BUN lab result is unknown LENGTH OF DIALYSIS 2024-12-05 20:38:18 227 min F BLOOD FLOW-QWB 2024-12-05 20:38:18 324 F spKt/V 2024-12-05 20:38:18 1.72 F stdKt/V (DIAL) 2024-12-05 20:38:18 N/A F stdKT/V Total 2024-12-05 20:38:18 N/A F TBW ([place]) 2024-12-05 20:38:18 35.21 Liters F WEIGHT (KG) 2024-12-05 20:38:18 77.4 kg F HEIGHT IN INCHES 2024-12-05 20:38:18 67 Inches F URR% 2024-12-05 20:38:18 76 % F eKt/V 2024-12-05 20:38:18 1.46 F PATIENT AGE 2024-12-05 20:38:18 59 Years F TOTAL HOURS/WEEK DIALYSIS 2024-12-05 20:38:18 11 hrs F VT (KT/V TX VOL) 2024-12-05 20:38:18 34.7 L F Residual kt/v 2024-12-05 20:38:18 F Unable to calculate: Pre BUN lab result is unknown Total Kt/V 2024-12-05 20:38:18 1.72 F PRESCRIBED DAYS/WEEK 2024-12-05 20:38:18 3 Day/Wk F CURRENT KRU 2024-12-05 20:38:18 F DIALYZER FLOW-QD 2024-12-05 20:38:18 784 mL/min F stdKT/V Total 2024-12-05 20:38:18 N/A F KT/V PRESCRIBED 2024-12-05 20:38:18 2.55 F Dialyzer DIANA 2024-12-05 20:38:18 1455 Calc F URR% 2024-12-05 20:38:18 76 % F eKt/V 2024-12-05 20:38:18 1.46 F TOTAL HOURS/WEEK DIALYSIS 2024-12-05 20:38:18 11 hrs F HEIGHT IN INCHES 2024-12-05 20:38:18 67 Inches F BSA LV 2024-12-05 20:38:18 1.89 sq m F Std Renal KT/V 2024-12-05 20:38:18 N/A F spKt/V 2024-12-05 20:38:18 1.72 F nPCR 2024-12-05 20:38:18 1.48 G/KG/D F AMPUTATE FACTOR 2024-12-05 20:38:18 0 F LENGTH OF DIALYSIS 2024-12-05 20:38:18 227 min F PATIENT AGE 2024-12-05 20:38:18 59 Years F TBW ([place]) 2024-12-05 20:38:18 35.21 Liters F stdKt/V (DIAL) 2024-12-05 20:38:18 N/A F WEIGHT - POST DAY 1 2024-12-05 20:38:18 77.5 kg F VM (KT/V MEAN VOL) 2024-12-05 20:38:18 35.5 F BLOOD FLOW-QWB 2024-12-05 20:38:18 324 F Residual kt/v 2024-12-05 20:38:18 F WEIGHT - PRE DAY 1 2024-12-05 20:38:18 80.3 kg F WEIGHT (KG) 2024-12-05 20:38:18 77.4 kg F VT (KT/V TX VOL) 2024-12-05 20:38:18 34.7 L F Std Renal KT/V 2024-12-05 20:38:18 N/A F BSA LV 2024-12-05 20:38:18 1.89 sq m F Total Kt/V 2024-12-05 20:38:18 1.72 F KT/V PRESCRIBED 2024-12-05 20:38:18 2.55 F PRESCRIBED DAYS/WEEK 2024-12-05 20:38:18 3 Day/Wk F LENGTH OF DIALYSIS 2024-12-05 20:38:18 227 min F AMPUTATE FACTOR 2024-12-05 20:38:18 0 F Dialyzer DIANA 2024-12-05 20:38:18 1455 Calc F CURRENT KRU 2024-12-05 20:38:18 F Unable to calculate: Pre BUN lab result is unknown DIALYZER FLOW-QD 2024-12-05 20:38:18 784 mL/min F VM (KT/V MEAN VOL) 2024-12-05 20:38:18 35.5 F BLOOD FLOW-QWB 2024-12-05 20:38:18 324 F stdKT/V Total 2024-12-05 20:38:18 N/A F nPCR 2024-12-05 20:38:18 1.48 G/KG/D F spKt/V 2024-12-05 20:38:18 1.72 F WEIGHT - PRE DAY 1 2024-12-05 20:38:18 80.3 kg F stdKt/V (DIAL) 2024-12-05 20:38:18 N/A F TBW ([place]) 2024-12-05 20:38:18 35.21 Liters F TOTAL HOURS/WEEK DIALYSIS 2024-12-05 20:38:18 11 hrs F URR% 2024-12-05 20:38:18 76 % F WEIGHT (KG) 2024-12-05 20:38:18 77.4 kg F WEIGHT - POST DAY 1 2024-12-05 20:38:18 77.5 kg F VT (KT/V TX VOL) 2024-12-05 20:38:18 34.7 L F PATIENT AGE 2024-12-05 20:38:18 59 Years F HEIGHT IN INCHES 2024-12-05 20:38:18 67 Inches F eKt/V 2024-12-05 20:38:18 1.46 F Residual kt/v 2024-12-05 20:38:18 F Unable to calculate: Pre BUN lab result is unknown LENGTH OF DIALYSIS 2024-12-05 20:38:18 227 min F PATIENT AGE 2024-12-05 20:38:18 59 Years F WEIGHT - PRE DAY 1 2024-12-05 20:38:18 80.3 kg F BSA LV 2024-12-05 20:38:18 1.89 sq m F HEIGHT IN INCHES 2024-12-05 20:38:18 67 Inches F URR% 2024-12-05 20:38:18 76 % F WEIGHT (KG) 2024-12-05 20:38:18 77.4 kg F VM (KT/V MEAN VOL) 2024-12-05 20:38:18 35.5 F AMPUTATE FACTOR 2024-12-05 20:38:18 0 F TBW ([place]) 2024-12-05 20:38:18 35.21 Liters F stdKt/V (DIAL) 2024-12-05 20:38:18 N/A F TOTAL HOURS/WEEK DIALYSIS 2024-12-05 20:38:18 11 hrs F VT (KT/V TX VOL) 2024-12-05 20:38:18 34.7 L F BLOOD FLOW-QWB 2024-12-05 20:38:18 324 F CURRENT KRU 2024-12-05 20:38:18 F Unable to calculate: Pre BUN lab result is unknown spKt/V 2024-12-05 20:38:18 1.72 F DIALYZER FLOW-QD 2024-12-05 20:38:18 784 mL/min F Dialyzer DIANA 2024-12-05 20:38:18 1455 Calc F PRESCRIBED DAYS/WEEK 2024-12-05 20:38:18 3 Day/Wk F Residual kt/v 2024-12-05 20:38:18 F Unable to calculate: Pre BUN lab result is unknown Total Kt/V 2024-12-05 20:38:18 1.72 F KT/V PRESCRIBED 2024-12-05 20:38:18 2.55 F nPCR 2024-12-05 20:38:18 1.48 G/KG/D F WEIGHT - POST DAY 1 2024-12-05 20:38:18 77.5 kg F Std Renal KT/V 2024-12-05 20:38:18 N/A F stdKT/V Total 2024-12-05 20:38:18 N/A F eKt/V 2024-12-05 20:38:18 1.46 F Urea nitrogen [Mass/volume] in Serum or Plasma 2024-12-05 20:36:17 75 mg/dL F 9.0-23.0 Urea nitrogen [Mass/volume] in Serum or Plasma 2024-12-05 20:36:17 75 mg/dL F 9.0-23.0 Urea nitrogen [Mass/volume] in Serum or Plasma 2024-12-05 20:36:17 75 mg/dL F 9.0-23.0 Urea nitrogen [Mass/volume] in Serum or Plasma 2024-12-05 20:36:17 75 mg/dL F 9.0-23.0 Urea nitrogen [Mass/volume] in Serum or Plasma 2024-12-05 20:36:17 75 mg/dL F 9.0-23.0 Urea nitrogen [Mass/volume] in Serum or Plasma --post dialysis 2024-12-05 17:24:17 18 mg/dL F 9.0-23.0 Urea nitrogen [Mass/volume] in Serum or Plasma --post dialysis 2024-12-05 17:24:17 18 mg/dL F 9.0-23.0 Urea nitrogen [Mass/volume] in Serum or Plasma --post dialysis 2024-12-05 17:24:17 18 mg/dL F 9.0-23.0 Urea nitrogen [Mass/volume] in Serum or Plasma --post dialysis 2024-12-05 17:24:17 18 mg/dL F 9.0-23.0 Urea nitrogen [Mass/volume] in Serum or Plasma --post dialysis 2024-12-05 17:24:17 18 mg/dL F 9.0-23.0 URR% 2024-11-25 15:05:23 72 % F CURRENT KRU 2024-11-25 15:05:23 F stdKt/V (DIAL) 2024-11-25 15:05:23 N/A F WEIGHT - PRE DAY 1 2024-11-25 15:05:23 83.1 kg F nPCR 2024-11-25 15:05:23 1.67 G/KG/D F PATIENT AGE 2024-11-25 15:05:23 59 Years F DIALYZER FLOW-QD 2024-11-25 15:05:23 787 mL/min F WEIGHT (KG) 2024-11-25 15:05:23 80.5 kg F AMPUTATE FACTOR 2024-11-25 15:05:23 0 F TBW ([place]) 2024-11-25 15:05:23 36.09 Liters F Std Renal KT/V 2024-11-25 15:05:23 N/A F stdKT/V Total 2024-11-25 15:05:23 N/A F VT (KT/V TX VOL) 2024-11-25 15:05:23 32.3 L F KT/V PRESCRIBED 2024-11-25 15:05:23 2.02 F BLOOD FLOW-QWB 2024-11-25 15:05:23 318 F Total Kt/V 2024-11-25 15:05:23 1.48 F Dialyzer DIANA 2024-11-25 15:05:23 1455 Calc F eKt/V 2024-11-25 15:05:23 1.23 F VM (KT/V MEAN VOL) 2024-11-25 15:05:23 35.4 F Residual kt/v 2024-11-25 15:05:23 F LENGTH OF DIALYSIS 2024-11-25 15:05:23 184 min F TOTAL HOURS/WEEK DIALYSIS 2024-11-25 15:05:23 10 hrs F HEIGHT IN INCHES 2024-11-25 15:05:23 67 Inches F PRESCRIBED DAYS/WEEK 2024-11-25 15:05:23 3 Day/Wk F spKt/V 2024-11-25 15:05:23 1.48 F WEIGHT - POST DAY 1 2024-11-25 15:05:23 81.1 kg F BSA LV 2024-11-25 15:05:23 1.92 sq m F URR% 2024-11-25 15:05:23 72 % F stdKt/V (DIAL) 2024-11-25 15:05:23 N/A F CURRENT KRU 2024-11-25 15:05:23 F VT (KT/V TX VOL) 2024-11-25 15:05:23 32.3 L F stdKT/V Total 2024-11-25 15:05:23 N/A F Dialyzer DIANA 2024-11-25 15:05:23 1455 Calc F nPCR 2024-11-25 15:05:23 1.67 G/KG/D F TBW ([place]) 2024-11-25 15:05:23 36.09 Liters F BLOOD FLOW-QWB 2024-11-25 15:05:23 318 F eKt/V 2024-11-25 15:05:23 1.23 F WEIGHT - POST DAY 1 2024-11-25 15:05:23 81.1 kg F VM (KT/V MEAN VOL) 2024-11-25 15:05:23 35.4 F Residual kt/v 2024-11-25 15:05:23 F LENGTH OF DIALYSIS 2024-11-25 15:05:23 184 min F Total Kt/V 2024-11-25 15:05:23 1.48 F KT/V PRESCRIBED 2024-11-25 15:05:23 2.02 F WEIGHT - PRE DAY 1 2024-11-25 15:05:23 83.1 kg F PATIENT AGE 2024-11-25 15:05:23 59 Years F DIALYZER FLOW-QD 2024-11-25 15:05:23 787 mL/min F Std Renal KT/V 2024-11-25 15:05:23 N/A F WEIGHT (KG) 2024-11-25 15:05:23 80.5 kg F BSA LV 2024-11-25 15:05:23 1.92 sq m F AMPUTATE FACTOR 2024-11-25 15:05:23 0 F HEIGHT IN INCHES 2024-11-25 15:05:23 67 Inches F spKt/V 2024-11-25 15:05:23 1.48 F TOTAL HOURS/WEEK DIALYSIS 2024-11-25 15:05:23 10 hrs F PRESCRIBED DAYS/WEEK 2024-11-25 15:05:23 3 Day/Wk F PATIENT AGE 2024-11-25 15:05:23 59 Years F spKt/V 2024-11-25 15:05:23 1.48 F TOTAL HOURS/WEEK DIALYSIS 2024-11-25 15:05:23 10 hrs F KT/V PRESCRIBED 2024-11-25 15:05:23 2.02 F Std Renal KT/V 2024-11-25 15:05:23 N/A F BLOOD FLOW-QWB 2024-11-25 15:05:23 318 F WEIGHT (KG) 2024-11-25 15:05:23 80.5 kg F DIALYZER FLOW-QD 2024-11-25 15:05:23 787 mL/min F VT (KT/V TX VOL) 2024-11-25 15:05:23 32.3 L F Residual kt/v 2024-11-25 15:05:23 F Unable to calculate: Pre BUN lab result is unknown PRESCRIBED DAYS/WEEK 2024-11-25 15:05:23 3 Day/Wk F Dialyzer DIANA 2024-11-25 15:05:23 1455 Calc F WEIGHT - PRE DAY 1 2024-11-25 15:05:23 83.1 kg F AMPUTATE FACTOR 2024-11-25 15:05:23 0 F nPCR 2024-11-25 15:05:23 1.67 G/KG/D F BSA LV 2024-11-25 15:05:23 1.92 sq m F HEIGHT IN INCHES 2024-11-25 15:05:23 67 Inches F LENGTH OF DIALYSIS 2024-11-25 15:05:23 184 min F VM (KT/V MEAN VOL) 2024-11-25 15:05:23 35.4 F WEIGHT - POST DAY 1 2024-11-25 15:05:23 81.1 kg F eKt/V 2024-11-25 15:05:23 1.23 F TBW ([place]) 2024-11-25 15:05:23 36.09 Liters F CURRENT KRU 2024-11-25 15:05:23 F Unable to calculate: Pre BUN lab result is unknown URR% 2024-11-25 15:05:23 72 % F Total Kt/V 2024-11-25 15:05:23 1.48 F stdKT/V Total 2024-11-25 15:05:23 N/A F stdKt/V (DIAL) 2024-11-25 15:05:23 N/A F nPCR 2024-11-07 22:56:33 0.48 G/KG/D F LENGTH OF DIALYSIS 2024-11-07 22:56:33 225 min F HEIGHT IN INCHES 2024-11-07 22:56:33 67 Inches F eKt/V 2024-11-07 22:56:33 1.36 F spKt/V 2024-11-07 22:56:33 1.6 F DIALYZER FLOW-QD 2024-11-07 22:56:33 800 mL/min F stdKt/V (DIAL) 2024-11-07 22:56:33 N/A F TBW ([place]) 2024-11-07 22:56:33 35.18 Liters F PRESCRIBED DAYS/WEEK 2024-11-07 22:56:33 3 Day/Wk F TOTAL HOURS/WEEK DIALYSIS 2024-11-07 22:56:33 3 hrs F PATIENT AGE 2024-11-07 22:56:33 59 Years F BLOOD FLOW-QWB 2024-11-07 22:56:33 325 F Std Renal KT/V 2024-11-07 22:56:33 N/A F WEIGHT - PRE DAY 1 2024-11-07 22:56:33 78.4 kg F WEIGHT (KG) 2024-11-07 22:56:33 80.5 kg F Residual kt/v 2024-11-07 22:56:33 F Unable to calculate: Pre BUN lab result is unknown KT/V PRESCRIBED 2024-11-07 22:56:33 2.47 F CURRENT KRU 2024-11-07 22:56:33 F Unable to calculate: Pre BUN lab result is unknown VM (KT/V MEAN VOL) 2024-11-07 22:56:33 35.8 F stdKT/V Total 2024-11-07 22:56:33 N/A F VT (KT/V TX VOL) 2024-11-07 22:56:33 37.2 L F URR% 2024-11-07 22:56:33 78 % F Dialyzer DIANA 2024-11-07 22:56:33 1455 Calc F AMPUTATE FACTOR 2024-11-07 22:56:33 0 F WEIGHT - POST DAY 1 2024-11-07 22:56:33 77.4 kg F Total Kt/V 2024-11-07 22:56:33 1.6 F BSA LV 2024-11-07 22:56:33 1.92 sq m F WEIGHT - PRE DAY 1 2024-11-07 22:56:33 78.4 kg F VT (KT/V TX VOL) 2024-11-07 22:56:33 37.2 L F CURRENT KRU 2024-11-07 22:56:33 F Unable to calculate: Pre BUN lab result is unknown Residual kt/v 2024-11-07 22:56:33 F Unable to calculate: Pre BUN lab result is unknown PATIENT AGE 2024-11-07 22:56:33 59 Years F WEIGHT - POST DAY 1 2024-11-07 22:56:33 77.4 kg F LENGTH OF DIALYSIS 2024-11-07 22:56:33 225 min F WEIGHT (KG) 2024-11-07 22:56:33 80.5 kg F TBW ([place]) 2024-11-07 22:56:33 35.18 Liters F DIALYZER FLOW-QD 2024-11-07 22:56:33 800 mL/min F BSA LV 2024-11-07 22:56:33 1.92 sq m F PRESCRIBED DAYS/WEEK 2024-11-07 22:56:33 3 Day/Wk F eKt/V 2024-11-07 22:56:33 1.36 F URR% 2024-11-07 22:56:33 78 % F stdKT/V Total 2024-11-07 22:56:33 N/A F VM (KT/V MEAN VOL) 2024-11-07 22:56:33 35.8 F AMPUTATE FACTOR 2024-11-07 22:56:33 0 F stdKt/V (DIAL) 2024-11-07 22:56:33 N/A F Total Kt/V 2024-11-07 22:56:33 1.6 F HEIGHT IN INCHES 2024-11-07 22:56:33 67 Inches F BLOOD FLOW-QWB 2024-11-07 22:56:33 325 F Std Renal KT/V 2024-11-07 22:56:33 N/A F nPCR 2024-11-07 22:56:33 0.48 G/KG/D F spKt/V 2024-11-07 22:56:33 1.6 F Dialyzer DIANA 2024-11-07 22:56:33 1455 Calc F TOTAL HOURS/WEEK DIALYSIS 2024-11-07 22:56:33 3 hrs F KT/V PRESCRIBED 2024-11-07 22:56:33 2.47 F Residual kt/v 2024-11-07 22:56:33 F Unable to calculate: Pre BUN lab result is unknown stdKt/V (DIAL) 2024-11-07 22:56:33 N/A F VT (KT/V TX VOL) 2024-11-07 22:56:33 37.2 L F CURRENT KRU 2024-11-07 22:56:33 F Unable to calculate: Pre BUN lab result is unknown WEIGHT - PRE DAY 1 2024-11-07 22:56:33 78.4 kg F PRESCRIBED DAYS/WEEK 2024-11-07 22:56:33 3 Day/Wk F AMPUTATE FACTOR 2024-11-07 22:56:33 0 F PATIENT AGE 2024-11-07 22:56:33 59 Years F URR% 2024-11-07 22:56:33 78 % F nPCR 2024-11-07 22:56:33 0.48 G/KG/D F Total Kt/V 2024-11-07 22:56:33 1.6 F BLOOD FLOW-QWB 2024-11-07 22:56:33 325 F Std Renal KT/V 2024-11-07 22:56:33 N/A F eKt/V 2024-11-07 22:56:33 1.36 F TOTAL HOURS/WEEK DIALYSIS 2024-11-07 22:56:33 3 hrs F DIALYZER FLOW-QD 2024-11-07 22:56:33 800 mL/min F LENGTH OF DIALYSIS 2024-11-07 22:56:33 225 min F BSA LV 2024-11-07 22:56:33 1.92 sq m F VM (KT/V MEAN VOL) 2024-11-07 22:56:33 35.8 F TBW ([place]) 2024-11-07 22:56:33 35.18 Liters F HEIGHT IN INCHES 2024-11-07 22:56:33 67 Inches F WEIGHT - POST DAY 1 2024-11-07 22:56:33 77.4 kg F WEIGHT (KG) 2024-11-07 22:56:33 80.5 kg F spKt/V 2024-11-07 22:56:33 1.6 F Dialyzer DIANA 2024-11-07 22:56:33 1455 Calc F KT/V PRESCRIBED 2024-11-07 22:56:33 2.47 F stdKT/V Total 2024-11-07 22:56:33 N/A F Creatinine [Mass/volume] in Serum or Plasma 2024-11-07 22:54:27 7.4 mg/dL F 0.5-1.1 Urea nitrogen [Mass/volume] in Serum or Plasma 2024-11-07 22:54:27 63 mg/dL F 9.0-23.0 Creatinine [Mass/volume] in Serum or Plasma 2024-11-07 22:54:27 7.4 mg/dL F 0.5-1.1 Urea nitrogen [Mass/volume] in Serum or Plasma 2024-11-07 22:54:27 63 mg/dL F 9.0-23.0 Creatinine [Mass/volume] in Serum or Plasma 2024-11-07 22:54:27 7.4 mg/dL F 0.5-1.1 Urea nitrogen [Mass/volume] in Serum or Plasma 2024-11-07 22:54:27 63 mg/dL F 9.0-23.0 Urea nitrogen [Mass/volume] in Serum or Plasma --post dialysis 2024-11-07 21:43:25 14 mg/dL F 9.0-23.0 Urea nitrogen [Mass/volume] in Serum or Plasma --post dialysis 2024-11-07 21:43:25 14 mg/dL F 9.0-23.0 Urea nitrogen [Mass/volume] in Serum or Plasma --post dialysis 2024-11-07 21:43:25 14 mg/dL F 9.0-23.0 CURRENT KRU 2024-10-10 14:53:30 F WEIGHT - PRE DAY 1 2024-10-10 14:53:30 83.1 kg F stdKt/V (DIAL) 2024-10-10 14:53:30 N/A F URR% 2024-10-10 14:53:30 72 % F DIALYZER FLOW-QD 2024-10-10 14:53:30 787 mL/min F stdKT/V Total 2024-10-10 14:53:30 N/A F Total Kt/V 2024-10-10 14:53:30 1.48 F WEIGHT (KG) 2024-10-10 14:53:30 80.5 kg F nPCR 2024-10-10 14:53:30 1.67 G/KG/D F VT (KT/V TX VOL) 2024-10-10 14:53:30 32.3 L F KT/V PRESCRIBED 2024-10-10 14:53:30 2.02 F Dialyzer DIANA 2024-10-10 14:53:30 1455 Calc F BLOOD FLOW-QWB 2024-10-10 14:53:30 318 F AMPUTATE FACTOR 2024-10-10 14:53:30 0 F TBW ([place]) 2024-10-10 14:53:30 36.09 Liters F Std Renal KT/V 2024-10-10 14:53:30 N/A F WEIGHT - POST DAY 1 2024-10-10 14:53:30 81.1 kg F VM (KT/V MEAN VOL) 2024-10-10 14:53:30 35.4 F Residual kt/v 2024-10-10 14:53:30 F spKt/V 2024-10-10 14:53:30 1.48 F PATIENT AGE 2024-10-10 14:53:30 59 Years F LENGTH OF DIALYSIS 2024-10-10 14:53:30 184 min F BSA LV 2024-10-10 14:53:30 1.92 sq m F PRESCRIBED DAYS/WEEK 2024-10-10 14:53:30 3 Day/Wk F TOTAL HOURS/WEEK DIALYSIS 2024-10-10 14:53:30 10 hrs F eKt/V 2024-10-10 14:53:30 1.23 F HEIGHT IN INCHES 2024-10-10 14:53:30 67 Inches F Urea nitrogen [Mass/volume] in Serum or Plasma 2024-10-10 14:51:24 85 mg/dL F 9.0-23.0 Urea nitrogen [Mass/volume] in Serum or Plasma 2024-10-10 14:51:24 85 mg/dL F 9.0-23.0 Urea nitrogen [Mass/volume] in Serum or Plasma 2024-10-10 14:51:24 85 mg/dL F 9.0-23.0 Urea nitrogen [Mass/volume] in Serum or Plasma 2024-10-10 14:51:24 85 mg/dL F 9.0-23.0 Urea nitrogen [Mass/volume] in Serum or Plasma --post dialysis 2024-10-10 13:15:14 24 mg/dL F 9.0-23.0 Urea nitrogen [Mass/volume] in Serum or Plasma --post dialysis 2024-10-10 13:15:14 24 mg/dL F 9.0-23.0 Urea nitrogen [Mass/volume] in Serum or Plasma --post dialysis 2024-10-10 13:15:14 24 mg/dL F 9.0-23.0 Urea nitrogen [Mass/volume] in Serum or Plasma --post dialysis 2024-10-10 13:15:14 24 mg/dL F 9.0-23.0 Creatinine [Mass/volume] in Serum or Plasma 2024-09-19 16:59:24 8.63 mg/dL F 0.5-1.1 PATIENT AGE 2024-09-05 23:14:11 59 Years F BSA LV 2024-09-05 23:14:11 1.96 sq m F HEIGHT IN INCHES 2024-09-05 23:14:11 67 Inches F TBW ([place]) 2024-09-05 23:14:11 36.78 Liters F WEIGHT - PRE DAY 1 2024-09-05 23:14:11 85.3 kg F VM (KT/V MEAN VOL) 2024-09-05 23:14:11 36.4 F WEIGHT - POST DAY 1 2024-09-05 23:14:11 83.9 kg F WEIGHT (KG) 2024-09-05 23:14:11 84 kg F Dialyzer DIANA 2024-09-05 23:14:11 1455 Calc F stdKT/V Total 2024-09-05 23:14:11 N/A F VT (KT/V TX VOL) 2024-09-05 23:14:11 36.9 L F nPCR 2024-09-05 23:14:11 1.32 G/KG/D F stdKt/V (DIAL) 2024-09-05 23:14:11 N/A F Total Kt/V 2024-09-05 23:14:11 1.82 F TOTAL HOURS/WEEK DIALYSIS 2024-09-05 23:14:11 11 hrs F PRESCRIBED DAYS/WEEK 2024-09-05 23:14:11 3 Day/Wk F LENGTH OF DIALYSIS 2024-09-05 23:14:11 225 min F AMPUTATE FACTOR 2024-09-05 23:14:11 0 F URR% 2024-09-05 23:14:11 79 % F Residual kt/v 2024-09-05 23:14:11 F BLOOD FLOW-QWB 2024-09-05 23:14:11 392 F KT/V PRESCRIBED 2024-09-05 23:14:11 2.41 F CURRENT KRU 2024-09-05 23:14:11 F DIALYZER FLOW-QD 2024-09-05 23:14:11 801 mL/min F spKt/V 2024-09-05 23:14:11 1.82 F Std Renal KT/V 2024-09-05 23:14:11 N/A F eKt/V 2024-09-05 23:14:11 1.55 F HEIGHT IN INCHES 2024-09-05 23:14:11 67 Inches F WEIGHT - PRE DAY 1 2024-09-05 23:14:11 85.3 kg F BSA LV 2024-09-05 23:14:11 1.96 sq m F PATIENT AGE 2024-09-05 23:14:11 59 Years F VM (KT/V MEAN VOL) 2024-09-05 23:14:11 36.4 F TBW ([place]) 2024-09-05 23:14:11 36.78 Liters F stdKt/V (DIAL) 2024-09-05 23:14:11 N/A F Total Kt/V 2024-09-05 23:14:11 1.82 F VT (KT/V TX VOL) 2024-09-05 23:14:11 36.9 L F URR% 2024-09-05 23:14:11 79 % F Dialyzer DIANA 2024-09-05 23:14:11 1455 Calc F stdKT/V Total 2024-09-05 23:14:11 N/A F LENGTH OF DIALYSIS 2024-09-05 23:14:11 225 min F nPCR 2024-09-05 23:14:11 1.32 G/KG/D F AMPUTATE FACTOR 2024-09-05 23:14:11 0 F WEIGHT - POST DAY 1 2024-09-05 23:14:11 83.9 kg F PRESCRIBED DAYS/WEEK 2024-09-05 23:14:11 3 Day/Wk F WEIGHT (KG) 2024-09-05 23:14:11 84 kg F DIALYZER FLOW-QD 2024-09-05 23:14:11 801 mL/min F spKt/V 2024-09-05 23:14:11 1.82 F KT/V PRESCRIBED 2024-09-05 23:14:11 2.41 F BLOOD FLOW-QWB 2024-09-05 23:14:11 392 F CURRENT KRU 2024-09-05 23:14:11 F eKt/V 2024-09-05 23:14:11 1.55 F TOTAL HOURS/WEEK DIALYSIS 2024-09-05 23:14:11 11 hrs F Residual kt/v 2024-09-05 23:14:11 F Std Renal KT/V 2024-09-05 23:14:11 N/A F Urea nitrogen [Mass/volume] in Serum or Plasma --post dialysis 2024-09-05 23:12:25 13 mg/dL F 9.0-23.0 Urea nitrogen [Mass/volume] in Serum or Plasma --post dialysis 2024-09-05 23:12:25 13 mg/dL F 9.0-23.0 Urea nitrogen [Mass/volume] in Serum or Plasma 2024-09-05 21:12:19 63 mg/dL F 9.0-23.0 Urea nitrogen [Mass/volume] in Serum or Plasma 2024-09-05 21:12:19 63 mg/dL F 9.0-23.0 Creatinine [Mass/volume] in Serum or Plasma 2024-08-22 21:55:14 9.83 mg/dL F 0.5-1.1 Creatinine [Mass/volume] in Serum or Plasma 2024-08-22 21:55:14 9.83 mg/dL F 0.5-1.1 Creatinine [Mass/volume] in Serum or Plasma 2024-08-22 21:55:14 9.83 mg/dL F 0.5-1.1 nPCR 2024-08-08 23:22:39 0.69 G/KG/D F WEIGHT - PRE DAY 1 2024-08-08 23:22:39 87.1 kg F BSA LV 2024-08-08 23:22:39 1.96 sq m F spKt/V 2024-08-08 23:22:39 1.48 F PRESCRIBED DAYS/WEEK 2024-08-08 23:22:39 3 Day/Wk F BLOOD FLOW-QWB 2024-08-08 23:22:39 450 F AMPUTATE FACTOR 2024-08-08 23:22:39 0 F LENGTH OF DIALYSIS 2024-08-08 23:22:39 182 min F WEIGHT (KG) 2024-08-08 23:22:39 84 kg F stdKt/V (DIAL) 2024-08-08 23:22:39 N/A F DIALYZER FLOW-QD 2024-08-08 23:22:39 800 mL/min F URR% 2024-08-08 23:22:39 75 % F Dialyzer DIANA 2024-08-08 23:22:39 1455 Calc F WEIGHT - POST DAY 1 2024-08-08 23:22:39 85.8 kg F HEIGHT IN INCHES 2024-08-08 23:22:39 67 Inches F KT/V PRESCRIBED 2024-08-08 23:22:39 1.95 F TOTAL HOURS/WEEK DIALYSIS 2024-08-08 23:22:39 7 hrs F Residual kt/v 2024-08-08 23:22:39 F eKt/V 2024-08-08 23:22:39 1.23 F CURRENT KRU 2024-08-08 23:22:39 F VM (KT/V MEAN VOL) 2024-08-08 23:22:39 36.2 F VT (KT/V TX VOL) 2024-08-08 23:22:39 39.7 L F Std Renal KT/V 2024-08-08 23:22:39 N/A F stdKT/V Total 2024-08-08 23:22:39 N/A F Total Kt/V 2024-08-08 23:22:39 1.48 F PATIENT AGE 2024-08-08 23:22:39 59 Years F TBW ([place]) 2024-08-08 23:22:39 37.25 Liters F nPCR 2024-08-08 23:22:39 0.69 G/KG/D F BSA LV 2024-08-08 23:22:39 1.96 sq m F WEIGHT - PRE DAY 1 2024-08-08 23:22:39 87.1 kg F spKt/V 2024-08-08 23:22:39 1.48 F URR% 2024-08-08 23:22:39 75 % F AMPUTATE FACTOR 2024-08-08 23:22:39 0 F HEIGHT IN INCHES 2024-08-08 23:22:39 67 Inches F KT/V PRESCRIBED 2024-08-08 23:22:39 1.95 F stdKt/V (DIAL) 2024-08-08 23:22:39 N/A F Residual kt/v 2024-08-08 23:22:39 F PRESCRIBED DAYS/WEEK 2024-08-08 23:22:39 3 Day/Wk F Dialyzer DIANA 2024-08-08 23:22:39 1455 Calc F WEIGHT - POST DAY 1 2024-08-08 23:22:39 85.8 kg F LENGTH OF DIALYSIS 2024-08-08 23:22:39 182 min F DIALYZER FLOW-QD 2024-08-08 23:22:39 800 mL/min F CURRENT KRU 2024-08-08 23:22:39 F BLOOD FLOW-QWB 2024-08-08 23:22:39 450 F Total Kt/V 2024-08-08 23:22:39 1.48 F VM (KT/V MEAN VOL) 2024-08-08 23:22:39 36.2 F eKt/V 2024-08-08 23:22:39 1.23 F TBW ([place]) 2024-08-08 23:22:39 37.25 Liters F VT (KT/V TX VOL) 2024-08-08 23:22:39 39.7 L F Std Renal KT/V 2024-08-08 23:22:39 N/A F WEIGHT (KG) 2024-08-08 23:22:39 84 kg F TOTAL HOURS/WEEK DIALYSIS 2024-08-08 23:22:39 7 hrs F stdKT/V Total 2024-08-08 23:22:39 N/A F PATIENT AGE 2024-08-08 23:22:39 59 Years F Urea nitrogen [Mass/volume] in Serum or Plasma 2024-08-08 23:06:32 67 mg/dL F 9.0-23.0 Urea nitrogen [Mass/volume] in Serum or Plasma 2024-08-08 23:06:32 67 mg/dL F 9.0-23.0 Urea nitrogen [Mass/volume] in Serum or Plasma --post dialysis 2024-08-08 21:51:24 17 mg/dL F 9.0-23.0 Urea nitrogen [Mass/volume] in Serum or Plasma --post dialysis 2024-08-08 21:51:24 17 mg/dL F 9.0-23.0 Creatinine [Mass/volume] in Serum or Plasma 2024-05-23 15:46:22 10.54 mg/dL F 0.5-1.1 Creatinine [Mass/volume] in Serum or Plasma 2024-05-23 15:46:22 10.54 mg/dL F 0.5-1.1 Creatinine [Mass/volume] in Serum or Plasma 2024-05-23 15:46:22 10.54 mg/dL F 0.5-1.1 Creatinine [Mass/volume] in Serum or Plasma 2023-09-21 15:50:35 9.71 mg/dL F 0.5-1.1 Creatinine [Mass/volume] in Serum or Plasma 2023-08-24 16:20:03 10.27 mg/dL F 0.5-1.1 Creatinine [Mass/volume] in Serum or Plasma 2023-08-24 16:20:03 10.27 mg/dL F 0.5-1.1 Creatinine [Mass/volume] in Serum or Plasma 2023-08-24 16:20:03 10.27 mg/dL F 0.5-1.1 Creatinine [Mass/volume] in Serum or Plasma 2023-07-20 16:08:42 10.48 mg/dL F 0.5-1.1 Creatinine [Mass/volume] in Serum or Plasma 2023-07-20 16:08:42 10.48 mg/dL F 0.5-1.1 Creatinine [Mass/volume] in Serum or Plasma 2023-06-22 15:18:32 11.14 mg/dL F 0.5-1.1 Creatinine [Mass/volume] in Serum or Plasma 2023-06-22 15:18:32 11.14 mg/dL F 0.5-1.1 Creatinine [Mass/volume] in Serum or Plasma 2023-06-22 15:18:32 11.14 mg/dL F 0.5-1.1 Creatinine [Mass/volume] in Serum or Plasma 2023-05-18 20:21:37 13.22 mg/dL F 0.5-1.1 Creatinine [Mass/volume] in Serum or Plasma 2023-04-20 19:35:36 11.05 mg/dL F 0.5-1.1 Creatinine [Mass/volume] in Serum or Plasma 2023-03-23 19:55:35 12.07 mg/dL F 0.5-1.1 Creatinine [Mass/volume] in Serum or Plasma 2023-03-23 19:55:35 12.07 mg/dL F 0.5-1.1 Creatinine [Mass/volume] in Serum or Plasma 2023-02-23 14:23:38 11 mg/dL F 0.5-1.1 Creatinine [Mass/volume] in Serum or Plasma 2023-01-19 18:49:17 10.65 mg/dL F 0.5-1.1 Creatinine [Mass/volume] in Serum or Plasma 2022-12-22 18:13:11 14.12 mg/dL F 0.5-1.1 Creatinine [Mass/volume] in Serum or Plasma 2022-12-22 18:13:11 14.12 mg/dL F 0.5-1.1 Creatinine [Mass/volume] in Serum or Plasma 2022-12-22 18:13:11 14.12 mg/dL F 0.5-1.1 LENGTH OF DIALYSIS 2022-05-05 19:28:47 210 min F stdKt/V (DIAL) 2022-05-05 19:28:47 N/A F WEIGHT - POST DAY 1 2022-05-05 19:28:47 69.4 kg F stdKT/V Total 2022-05-05 19:28:47 N/A F Dialyzer DIANA 2022-05-05 19:28:47 1218 Calc F Total Kt/V 2022-05-05 19:28:47 1.86 F WEIGHT - PRE DAY 1 2022-05-05 19:28:47 72.4 kg F HEIGHT IN INCHES 2022-05-05 19:28:47 67 Inches F PATIENT AGE 2022-05-05 19:28:47 56 Years F TOTAL HOURS/WEEK DIALYSIS 2022-05-05 19:28:47 10 F nPCR 2022-05-05 19:28:47 1.48 G/KG/D F spKt/V 2022-05-05 19:28:47 1.86 F KT/V PRESCRIBED 2022-05-05 19:28:47 2.17 F PRESCRIBED DAYS/WEEK 2022-05-05 19:28:47 3 Day/Wk F WEIGHT (KG) 2022-05-05 19:28:47 68.5 kg F BLOOD FLOW-QWB 2022-05-05 19:28:47 450 F URR% 2022-05-05 19:28:47 78 % F AMPUTATE FACTOR 2022-05-05 19:28:47 0 F DIALYZER FLOW-QD 2022-05-05 19:28:47 500 mL/min F stdKT/V Total 2022-05-05 19:28:47 N/A F PATIENT AGE 2022-05-05 19:28:47 56 Years F WEIGHT - POST DAY 1 2022-05-05 19:28:47 69.4 kg F WEIGHT - PRE DAY 1 2022-05-05 19:28:47 72.4 kg F Total Kt/V 2022-05-05 19:28:47 1.86 F LENGTH OF DIALYSIS 2022-05-05 19:28:47 210 min F HEIGHT IN INCHES 2022-05-05 19:28:47 67 Inches F Dialyzer DIANA 2022-05-05 19:28:47 1218 Calc F stdKt/V (DIAL) 2022-05-05 19:28:47 N/A F URR% 2022-05-05 19:28:47 78 % F KT/V PRESCRIBED 2022-05-05 19:28:47 2.17 F PRESCRIBED DAYS/WEEK 2022-05-05 19:28:47 3 Day/Wk F WEIGHT (KG) 2022-05-05 19:28:47 68.5 kg F spKt/V 2022-05-05 19:28:47 1.86 F nPCR 2022-05-05 19:28:47 1.48 G/KG/D F TOTAL HOURS/WEEK DIALYSIS 2022-05-05 19:28:47 10 F BLOOD FLOW-QWB 2022-05-05 19:28:47 450 F DIALYZER FLOW-QD 2022-05-05 19:28:47 500 mL/min F AMPUTATE FACTOR 2022-05-05 19:28:47 0 F VT (KT/V TX VOL) 2022-05-05 19:28:47 31.8 L F eKt/V 2022-05-05 19:28:47 1.56 F Std Renal KT/V 2022-05-05 19:28:47 N/A F BSA LV 2022-05-05 19:28:47 1.79 sq m F Residual kt/v 2022-05-05 19:28:47 F TBW ([place]) 2022-05-05 19:28:47 33.21 Liters F VM (KT/V MEAN VOL) 2022-05-05 19:28:47 34.8 F CURRENT KRU 2022-05-05 19:28:47 F eKt/V 2022-05-05 19:28:47 1.56 F Std Renal KT/V 2022-05-05 19:28:47 N/A F VT (KT/V TX VOL) 2022-05-05 19:28:47 31.8 L F BSA LV 2022-05-05 19:28:47 1.79 sq m F VM (KT/V MEAN VOL) 2022-05-05 19:28:47 34.8 F TBW ([place]) 2022-05-05 19:28:47 33.21 Liters F Residual kt/v 2022-05-05 19:28:47 F CURRENT KRU 2022-05-05 19:28:47 F Creatinine [Mass/volume] in Serum or Plasma 2022-05-05 19:23:51 10.16 mg/dL F 0.5-1.1 Urea nitrogen [Mass/volume] in Serum or Plasma 2022-05-05 19:23:51 69 mg/dL F 9.0-23.0 Creatinine [Mass/volume] in Serum or Plasma 2022-05-05 19:23:51 10.16 mg/dL F 0.5-1.1 Urea nitrogen [Mass/volume] in Serum or Plasma 2022-05-05 19:23:51 69 mg/dL F 9.0-23.0 Urea nitrogen [Mass/volume] in Serum or Plasma --post dialysis 2022-05-05 15:55:56 15 mg/dL F 9.0-23.0 Urea nitrogen [Mass/volume] in Serum or Plasma --post dialysis 2022-05-05 15:55:56 15 mg/dL F 9.0-23.0 Urea nitrogen [Mass/volume] in Serum or Plasma --post dialysis stdKT/V Total VM (KT/V MEAN VOL) TBW ([place]) WEIGHT - PRE DAY 1 DIALYZER FLOW-QD spKt/V BSA LV CURRENT KRU WEIGHT - POST DAY 1 BLOOD FLOW-QWB nPCR eKt/V Std Renal KT/V LENGTH OF DIALYSIS Dialyzer DIANA stdKt/V (DIAL) Total Kt/V VT (KT/V TX VOL) TOTAL HOURS/WEEK DIALYSIS KT/V PRESCRIBED PRESCRIBED DAYS/WEEK Residual kt/v DIALYZER FLOW-QD Dialyzer DIANA LENGTH OF DIALYSIS BSA LV WEIGHT - POST DAY 1 WEIGHT - PRE DAY 1 PRESCRIBED DAYS/WEEK VT (KT/V TX VOL) VM (KT/V MEAN VOL) Residual kt/v KT/V PRESCRIBED Total Kt/V nPCR TBW () spKt/V eKt/V stdKt/V (DIAL) Std Renal KT/V stdKT/V Total TOTAL HOURS/WEEK DIALYSIS BLOOD FLOW-QWB CURRENT KRU WEIGHT - PRE DAY 1 WEIGHT (KG) Std Renal KT/V WEIGHT - POST DAY 1 Total Kt/V nPCR PATIENT AGE CURRENT KRU VM (KT/V MEAN VOL) HEIGHT IN INCHES VT (KT/V TX VOL) Residual kt/v eKt/V stdKt/V (DIAL) LENGTH OF DIALYSIS TBW ([place]) KT/V PRESCRIBED stdKT/V Total AMPUTATE FACTOR BLOOD FLOW-QWB DIALYZER FLOW-QD Urea nitrogen [Mass/volume] in Serum or Plasma Dialyzer DIANA spKt/V PRESCRIBED DAYS/WEEK URR% TOTAL HOURS/WEEK DIALYSIS BSA LV PRESCRIBED DAYS/WEEK BSA LV PATIENT AGE Residual kt/v WEIGHT - PRE DAY 1 VT (KT/V TX VOL) eKt/V TBW () CURRENT KRU WEIGHT - POST DAY 1 URR% DIALYZER FLOW-QD AMPUTATE FACTOR TOTAL HOURS/WEEK DIALYSIS LENGTH OF DIALYSIS nPCR HEIGHT IN INCHES Total Kt/V Urea nitrogen [Mass/volume] in Serum or Plasma spKt/V Dialyzer DIANA WEIGHT (KG) VM (KT/V MEAN VOL) stdKT/V Total stdKt/V (DIAL) Std Renal KT/V BLOOD FLOW-QWB KT/V PRESCRIBED WEIGHT - PRE DAY 1 PRESCRIBED DAYS/WEEK VT (KT/V TX VOL) VM (KT/V MEAN VOL) KT/V PRESCRIBED Total Kt/V nPCR AMPUTATE FACTOR TBW () eKt/V spKt/V stdKT/V Total TOTAL HOURS/WEEK DIALYSIS Urea nitrogen [Mass/volume] in Serum or Plasma URR% PATIENT AGE BSA LV WEIGHT (KG) HEIGHT IN INCHES Residual kt/v Std Renal KT/V BLOOD FLOW-QWB Dialyzer DIANA LENGTH OF DIALYSIS stdKt/V (DIAL) WEIGHT - POST DAY 1 CURRENT KRU DIALYZER FLOW-QD Urea nitrogen [Mass/volume] in Serum or Plasma URR% DIALYZER FLOW-QD Dialyzer DIANA PATIENT AGE BSA LV LENGTH OF DIALYSIS WEIGHT - POST DAY 1 WEIGHT - PRE DAY 1 HEIGHT IN INCHES WEIGHT (KG) PRESCRIBED DAYS/WEEK VT (KT/V TX VOL) VM (KT/V MEAN VOL) Residual kt/v KT/V PRESCRIBED Total Kt/V nPCR TBW ([place]) AMPUTATE FACTOR spKt/V eKt/V stdKt/V (DIAL) TOTAL HOURS/WEEK DIALYSIS stdKT/V Total Std Renal KT/V BLOOD FLOW-QWB CURRENT KRU Anemia Description Draw Date Result/Unit Status Ref Range Result Comments HCT CALC HGBX3 2025-03-21 04:04:54 see comments F 37.0-47.0 Unable to Calculate. IRON SATURATION 2025-03-21 01:55:14 26 % F 16.0-46.0 TIBC 2025-03-21 01:55:14 269 ug/dL F 250.0-425.0 IRON SATURATION 2025-03-21 01:55:14 26 % F 16.0-46.0 TIBC 2025-03-21 01:55:14 269 ug/dL F 250.0-425.0 Iron [Mass/volume] in Serum or Plasma 2025-03-21 01:51:49 71 ug/dL F 50.0-170.0 Iron binding capacity.unsaturated [Mass/volume] in Serum or Plasma 2025-03-21 01:51:49 198 ug/dL F 80.0-375.0 Iron [Mass/volume] in Serum or Plasma 2025-03-21 01:51:49 71 ug/dL F 50.0-170.0 Iron binding capacity.unsaturated [Mass/volume] in Serum or Plasma 2025-03-21 01:51:49 198 ug/dL F 80.0-375.0 Ferritin [Mass/volume] in Serum or Plasma 2025-03-20 14:08:19 374 ng/mL F 10.0-291.0 Ferritin [Mass/volume] in Serum or Plasma 2025-03-20 14:08:19 374 ng/mL F 10.0-291.0 HCT CALC HGBX3 2025-03-20 14:02:05 38.1 % F 37.0-47.0 HCT CALC HGBX3 2025-03-20 14:02:05 38.1 % F 37.0-47.0 Erythrocyte distribution width [Ratio] by Automated count 2025-03-20 14:01:14 19.4 % F 11.0-15.0 Erythrocytes [#/volume] in Blood by Automated count 2025-03-20 14:01:14 4.38 x 10^6 cells/uL F 3.85-5.2 Hematocrit [Volume Fraction] of Blood by Automated count 2025-03-20 14:01:14 41.6 % F 37.0-47.0 Hemoglobin [Mass/volume] in Blood 2025-03-20 14:01:14 12.7 g/dL F 12.0-16.0 MCV [Entitic volume] by Automated count 2025-03-20 14:01:14 94.9 fL F 80.0-100.0 MCHC [Mass/volume] by Automated count 2025-03-20 14:01:14 30.5 g/dL F 29.6-35.3 MCH [Entitic mass] by Automated count 2025-03-20 14:01:14 28.9 pg F 25.9-34.2 Platelets [#/volume] in Blood by Automated count 2025-03-20 14:01:14 230 x 10^3 cells/uL F 140.0-450.0 Erythrocyte distribution width [Ratio] by Automated count 2025-03-20 14:01:14 19.4 % F 11.0-15.0 Erythrocytes [#/volume] in Blood by Automated count 2025-03-20 14:01:14 4.38 x 10^6 cells/uL F 3.85-5.2 Hematocrit [Volume Fraction] of Blood by Automated count 2025-03-20 14:01:14 41.6 % F 37.0-47.0 MCH [Entitic mass] by Automated count 2025-03-20 14:01:14 28.9 pg F 25.9-34.2 Hemoglobin [Mass/volume] in Blood 2025-03-20 14:01:14 12.7 g/dL F 12.0-16.0 MCV [Entitic volume] by Automated count 2025-03-20 14:01:14 94.9 fL F 80.0-100.0 MCHC [Mass/volume] by Automated count 2025-03-20 14:01:14 30.5 g/dL F 29.6-35.3 Platelets [#/volume] in Blood by Automated count 2025-03-20 14:01:14 230 x 10^3 cells/uL F 140.0-450.0 HCT CALC HGBX3 2025-03-06 18:27:05 42.6 % F 37.0-47.0 HCT CALC HGBX3 2025-03-06 18:27:05 42.6 % F 37.0-47.0 HCT CALC HGBX3 2025-03-06 18:27:05 42.6 % F 37.0-47.0 HCT CALC HGBX3 2025-03-06 18:27:05 42.6 % F 37.0-47.0 Hemoglobin [Mass/volume] in Blood 2025-03-06 18:26:13 14.2 g/dL F 12.0-16.0 Hemoglobin [Mass/volume] in Blood 2025-03-06 18:26:13 14.2 g/dL F 12.0-16.0 Hemoglobin [Mass/volume] in Blood 2025-03-06 18:26:13 14.2 g/dL F 12.0-16.0 Hemoglobin [Mass/volume] in Blood 2025-03-06 18:26:13 14.2 g/dL F 12.0-16.0 HCT CALC HGBX3 2025-02-27 15:27:55 39.6 % F 37.0-47.0 Hemoglobin [Mass/volume] in Blood 2025-02-27 15:27:13 13.2 g/dL F 12.0-16.0 TIBC 2025-02-21 06:10:33 250 ug/dL F 250.0-425.0 IRON SATURATION 2025-02-21 06:10:33 21 % F 16.0-46.0 TIBC 2025-02-21 06:10:33 250 ug/dL F 250.0-425.0 IRON SATURATION 2025-02-21 06:10:33 21 % F 16.0-46.0 IRON SATURATION 2025-02-21 06:10:33 21 % F 16.0-46.0 TIBC 2025-02-21 06:10:33 250 ug/dL F 250.0-425.0 Iron [Mass/volume] in Serum or Plasma 2025-02-21 05:50:38 53 ug/dL F 50.0-170.0 Iron binding capacity.unsaturated [Mass/volume] in Serum or Plasma 2025-02-21 05:50:38 197 ug/dL F 80.0-375.0 Iron [Mass/volume] in Serum or Plasma 2025-02-21 05:50:38 53 ug/dL F 50.0-170.0 Iron binding capacity.unsaturated [Mass/volume] in Serum or Plasma 2025-02-21 05:50:38 197 ug/dL F 80.0-375.0 Iron [Mass/volume] in Serum or Plasma 2025-02-21 05:50:38 53 ug/dL F 50.0-170.0 Iron binding capacity.unsaturated [Mass/volume] in Serum or Plasma 2025-02-21 05:50:38 197 ug/dL F 80.0-375.0 HCT CALC HGBX3 2025-02-20 20:33:49 41.7 % F 37.0-47.0 HCT CALC HGBX3 2025-02-20 20:33:49 41.7 % F 37.0-47.0 HCT CALC HGBX3 2025-02-20 20:33:49 41.7 % F 37.0-47.0 MCV [Entitic volume] by Automated count 2025-02-20 20:33:11 98.9 fL F 80.0-100.0 Hematocrit [Volume Fraction] of Blood by Automated count 2025-02-20 20:33:11 45.8 % F 37.0-47.0 Erythrocytes [#/volume] in Blood by Automated count 2025-02-20 20:33:11 4.64 x 10^6 cells/uL F 3.85-5.2 MCHC [Mass/volume] by Automated count 2025-02-20 20:33:11 30.4 g/dL F 29.6-35.3 MCH [Entitic mass] by Automated count 2025-02-20 20:33:11 30 pg F 25.9-34.2 Hemoglobin [Mass/volume] in Blood 2025-02-20 20:33:11 13.9 g/dL F 12.0-16.0 Platelets [#/volume] in Blood by Automated count 2025-02-20 20:33:11 148 x 10^3 cells/uL F 140.0-450.0 Erythrocyte distribution width [Ratio] by Automated count 2025-02-20 20:33:11 20.2 % F 11.0-15.0 Hemoglobin [Mass/volume] in Blood 2025-02-20 20:33:11 13.9 g/dL F 12.0-16.0 MCV [Entitic volume] by Automated count 2025-02-20 20:33:11 98.9 fL F 80.0-100.0 Hematocrit [Volume Fraction] of Blood by Automated count 2025-02-20 20:33:11 45.8 % F 37.0-47.0 MCH [Entitic mass] by Automated count 2025-02-20 20:33:11 30 pg F 25.9-34.2 MCHC [Mass/volume] by Automated count 2025-02-20 20:33:11 30.4 g/dL F 29.6-35.3 Erythrocytes [#/volume] in Blood by Automated count 2025-02-20 20:33:11 4.64 x 10^6 cells/uL F 3.85-5.2 Erythrocyte distribution width [Ratio] by Automated count 2025-02-20 20:33:11 20.2 % F 11.0-15.0 Platelets [#/volume] in Blood by Automated count 2025-02-20 20:33:11 148 x 10^3 cells/uL F 140.0-450.0 Hemoglobin [Mass/volume] in Blood 2025-02-20 20:33:11 13.9 g/dL F 12.0-16.0 Erythrocyte distribution width [Ratio] by Automated count 2025-02-20 20:33:11 20.2 % F 11.0-15.0 Platelets [#/volume] in Blood by Automated count 2025-02-20 20:33:11 148 x 10^3 cells/uL F 140.0-450.0 MCH [Entitic mass] by Automated count 2025-02-20 20:33:11 30 pg F 25.9-34.2 MCHC [Mass/volume] by Automated count 2025-02-20 20:33:11 30.4 g/dL F 29.6-35.3 Erythrocytes [#/volume] in Blood by Automated count 2025-02-20 20:33:11 4.64 x 10^6 cells/uL F 3.85-5.2 Hematocrit [Volume Fraction] of Blood by Automated count 2025-02-20 20:33:11 45.8 % F 37.0-47.0 MCV [Entitic volume] by Automated count 2025-02-20 20:33:11 98.9 fL F 80.0-100.0 Ferritin [Mass/volume] in Serum or Plasma 2025-02-20 20:02:13 308 ng/mL F 10.0-291.0 Ferritin [Mass/volume] in Serum or Plasma 2025-02-20 20:02:13 308 ng/mL F 10.0-291.0 Ferritin [Mass/volume] in Serum or Plasma 2025-02-20 20:02:13 308 ng/mL F 10.0-291.0 HCT CALC HGBX3 2025-02-07 00:12:00 36.6 % F 37.0-47.0 HCT CALC HGBX3 2025-02-07 00:12:00 36.6 % F 37.0-47.0 HCT CALC HGBX3 2025-02-07 00:12:00 36.6 % F 37.0-47.0 Hemoglobin [Mass/volume] in Blood 2025-02-07 00:11:16 12.2 g/dL F 12.0-16.0 Hemoglobin [Mass/volume] in Blood 2025-02-07 00:11:16 12.2 g/dL F 12.0-16.0 Hemoglobin [Mass/volume] in Blood 2025-02-07 00:11:16 12.2 g/dL F 12.0-16.0 HCT CALC HGBX3 2025-01-30 14:56:17 34.8 % F 37.0-47.0 Hemoglobin [Mass/volume] in Blood 2025-01-30 14:55:16 11.6 g/dL F 12.0-16.0 HCT CALC HGBX3 2025-01-28 17:50:40 34.5 % F 37.0-47.0 Erythrocyte distribution width [Ratio] by Automated count 2025-01-28 17:49:11 19.7 % F 11.0-15.0 Hematocrit [Volume Fraction] of Blood by Automated count 2025-01-28 17:49:11 36.9 % F 37.0-47.0 MCV [Entitic volume] by Automated count 2025-01-28 17:49:11 95.7 fL F 80.0-100.0 MCH [Entitic mass] by Automated count 2025-01-28 17:49:11 29.7 pg F 25.9-34.2 MCHC [Mass/volume] by Automated count 2025-01-28 17:49:11 31.1 g/dL F 29.6-35.3 Erythrocytes [#/volume] in Blood by Automated count 2025-01-28 17:49:11 3.86 x 10^6 cells/uL F 3.85-5.2 Platelets [#/volume] in Blood by Automated count 2025-01-28 17:49:11 217 x 10^3 cells/uL F 140.0-450.0 Hemoglobin [Mass/volume] in Blood 2025-01-28 17:49:11 11.5 g/dL F 12.0-16.0 HCT CALC HGBX3 2025-01-16 13:47:59 36.6 % F 37.0-47.0 HCT CALC HGBX3 2025-01-16 13:47:59 36.6 % F 37.0-47.0 HCT CALC HGBX3 2025-01-16 13:47:59 36.6 % F 37.0-47.0 HCT CALC HGBX3 2025-01-16 13:47:59 36.6 % F 37.0-47.0 HCT CALC HGBX3 2025-01-16 13:47:59 36.6 % F 37.0-47.0 Hemoglobin [Mass/volume] in Blood 2025-01-16 13:47:13 12.2 g/dL F 12.0-16.0 Hemoglobin [Mass/volume] in Blood 2025-01-16 13:47:13 12.2 g/dL F 12.0-16.0 Hemoglobin [Mass/volume] in Blood 2025-01-16 13:47:13 12.2 g/dL F 12.0-16.0 Hemoglobin [Mass/volume] in Blood 2025-01-16 13:47:13 12.2 g/dL F 12.0-16.0 Hemoglobin [Mass/volume] in Blood 2025-01-16 13:47:13 12.2 g/dL F 12.0-16.0 HCT CALC HGBX3 2024-12-19 13:51:12 34.5 % F 37.0-47.0 HCT CALC HGBX3 2024-12-19 13:51:12 34.5 % F 37.0-47.0 HCT CALC HGBX3 2024-12-19 13:51:12 34.5 % F 37.0-47.0 MCHC [Mass/volume] by Automated count 2024-12-19 13:50:13 31.7 g/dL F 29.6-35.3 MCH [Entitic mass] by Automated count 2024-12-19 13:50:13 28.6 pg F 25.9-34.2 Hemoglobin [Mass/volume] in Blood 2024-12-19 13:50:13 11.5 g/dL F 12.0-16.0 Hematocrit [Volume Fraction] of Blood by Automated count 2024-12-19 13:50:13 36.3 % F 37.0-47.0 Erythrocytes [#/volume] in Blood by Automated count 2024-12-19 13:50:13 4.02 x 10^6 cells/uL F 3.85-5.2 MCV [Entitic volume] by Automated count 2024-12-19 13:50:13 90.2 fL F 80.0-100.0 Platelets [#/volume] in Blood by Automated count 2024-12-19 13:50:13 244 x 10^3 cells/uL F 140.0-450.0 Erythrocyte distribution width [Ratio] by Automated count 2024-12-19 13:50:13 17.5 % F 11.0-15.0 Erythrocyte distribution width [Ratio] by Automated count 2024-12-19 13:50:13 17.5 % F 11.0-15.0 Hemoglobin [Mass/volume] in Blood 2024-12-19 13:50:13 11.5 g/dL F 12.0-16.0 Platelets [#/volume] in Blood by Automated count 2024-12-19 13:50:13 244 x 10^3 cells/uL F 140.0-450.0 MCH [Entitic mass] by Automated count 2024-12-19 13:50:13 28.6 pg F 25.9-34.2 MCHC [Mass/volume] by Automated count 2024-12-19 13:50:13 31.7 g/dL F 29.6-35.3 Erythrocytes [#/volume] in Blood by Automated count 2024-12-19 13:50:13 4.02 x 10^6 cells/uL F 3.85-5.2 Hematocrit [Volume Fraction] of Blood by Automated count 2024-12-19 13:50:13 36.3 % F 37.0-47.0 MCV [Entitic volume] by Automated count 2024-12-19 13:50:13 90.2 fL F 80.0-100.0 Erythrocyte distribution width [Ratio] by Automated count 2024-12-19 13:50:13 17.5 % F 11.0-15.0 Hemoglobin [Mass/volume] in Blood 2024-12-19 13:50:13 11.5 g/dL F 12.0-16.0 Platelets [#/volume] in Blood by Automated count 2024-12-19 13:50:13 244 x 10^3 cells/uL F 140.0-450.0 MCH [Entitic mass] by Automated count 2024-12-19 13:50:13 28.6 pg F 25.9-34.2 MCHC [Mass/volume] by Automated count 2024-12-19 13:50:13 31.7 g/dL F 29.6-35.3 Erythrocytes [#/volume] in Blood by Automated count 2024-12-19 13:50:13 4.02 x 10^6 cells/uL F 3.85-5.2 Hematocrit [Volume Fraction] of Blood by Automated count 2024-12-19 13:50:13 36.3 % F 37.0-47.0 MCV [Entitic volume] by Automated count 2024-12-19 13:50:13 90.2 fL F 80.0-100.0 HCT CALC HGBX3 2024-12-05 14:01:51 33.6 % F 37.0-47.0 HCT CALC HGBX3 2024-12-05 14:01:51 33.6 % F 37.0-47.0 HCT CALC HGBX3 2024-12-05 14:01:51 33.6 % F 37.0-47.0 HCT CALC HGBX3 2024-12-05 14:01:51 33.6 % F 37.0-47.0 HCT CALC HGBX3 2024-12-05 14:01:51 33.6 % F 37.0-47.0 Hemoglobin [Mass/volume] in Blood 2024-12-05 14:01:17 11.2 g/dL F 12.0-16.0 Hemoglobin [Mass/volume] in Blood 2024-12-05 14:01:17 11.2 g/dL F 12.0-16.0 Hemoglobin [Mass/volume] in Blood 2024-12-05 14:01:17 11.2 g/dL F 12.0-16.0 Hemoglobin [Mass/volume] in Blood 2024-12-05 14:01:17 11.2 g/dL F 12.0-16.0 Hemoglobin [Mass/volume] in Blood 2024-12-05 14:01:17 11.2 g/dL F 12.0-16.0 IRON SATURATION 2024-11-28 17:14:13 34 % F 16.0-46.0 TIBC 2024-11-28 17:14:13 279 ug/dL F 250.0-425.0 IRON SATURATION 2024-11-28 17:14:13 34 % F 16.0-46.0 TIBC 2024-11-28 17:14:13 279 ug/dL F 250.0-425.0 Iron [Mass/volume] in Serum or Plasma 2024-11-28 17:13:14 94 ug/dL F 50.0-170.0 Iron binding capacity.unsaturated [Mass/volume] in Serum or Plasma 2024-11-28 17:13:14 185 ug/dL F 80.0-375.0 Iron [Mass/volume] in Serum or Plasma 2024-11-28 17:13:14 94 ug/dL F 50.0-170.0 Iron binding capacity.unsaturated [Mass/volume] in Serum or Plasma 2024-11-28 17:13:14 185 ug/dL F 80.0-375.0 Ferritin [Mass/volume] in Serum or Plasma 2024-11-26 17:57:10 663 ng/mL F 10.0-291.0 Ferritin [Mass/volume] in Serum or Plasma 2024-11-26 17:57:10 663 ng/mL F 10.0-291.0 HCT CALC HGBX3 2024-11-25 15:02:06 37.2 % F 37.0-47.0 HCT CALC HGBX3 2024-11-25 15:02:06 37.2 % F 37.0-47.0 HCT CALC HGBX3 2024-11-25 15:02:06 37.2 % F 37.0-47.0 HCT CALC HGBX3 2024-11-21 13:29:12 34.5 % F 37.0-47.0 HCT CALC HGBX3 2024-11-21 13:29:12 34.5 % F 37.0-47.0 Hemoglobin [Mass/volume] in Blood 2024-11-21 13:28:11 11.5 g/dL F 12.0-16.0 Hemoglobin [Mass/volume] in Blood 2024-11-21 13:28:11 11.5 g/dL F 12.0-16.0 Ferritin [Mass/volume] in Serum or Plasma 2024-11-20 20:27:14 426 ng/mL F 10.0-291.0 Ferritin [Mass/volume] in Serum or Plasma 2024-11-20 20:27:14 426 ng/mL F 10.0-291.0 HCT CALC HGBX3 2024-11-14 15:39:48 36.6 % F 37.0-47.0 HCT CALC HGBX3 2024-11-14 15:39:48 36.6 % F 37.0-47.0 Hemoglobin [Mass/volume] in Blood 2024-11-14 15:39:10 12.2 g/dL F 12.0-16.0 Hemoglobin [Mass/volume] in Blood 2024-11-14 15:39:10 12.2 g/dL F 12.0-16.0 IRON SATURATION 2024-11-08 07:45:01 28 % F 16.0-46.0 TIBC 2024-11-08 07:45:01 248 ug/dL F 250.0-425.0 IRON SATURATION 2024-11-08 07:45:01 28 % F 16.0-46.0 TIBC 2024-11-08 07:45:01 248 ug/dL F 250.0-425.0 IRON SATURATION 2024-11-08 07:45:01 28 % F 16.0-46.0 TIBC 2024-11-08 07:45:01 248 ug/dL F 250.0-425.0 Iron [Mass/volume] in Serum or Plasma 2024-11-08 07:17:40 70 ug/dL F 50.0-170.0 Iron [Mass/volume] in Serum or Plasma 2024-11-08 07:17:40 70 ug/dL F 50.0-170.0 Iron [Mass/volume] in Serum or Plasma 2024-11-08 07:17:40 70 ug/dL F 50.0-170.0 Iron binding capacity.unsaturated [Mass/volume] in Serum or Plasma 2024-11-08 07:17:34 178 ug/dL F 80.0-375.0 Iron binding capacity.unsaturated [Mass/volume] in Serum or Plasma 2024-11-08 07:17:34 178 ug/dL F 80.0-375.0 Iron binding capacity.unsaturated [Mass/volume] in Serum or Plasma 2024-11-08 07:17:34 178 ug/dL F 80.0-375.0 HCT CALC HGBX3 2024-11-08 00:16:55 38.1 % F 37.0-47.0 HCT CALC HGBX3 2024-11-08 00:16:55 38.1 % F 37.0-47.0 HCT CALC HGBX3 2024-11-08 00:16:55 38.1 % F 37.0-47.0 Hematocrit [Volume Fraction] of Blood by Automated count 2024-11-08 00:16:11 43 % F 37.0-47.0 Hemoglobin [Mass/volume] in Blood 2024-11-08 00:16:11 12.7 g/dL F 12.0-16.0 MCV [Entitic volume] by Automated count 2024-11-08 00:16:11 96.6 fL F 80.0-100.0 MCH [Entitic mass] by Automated count 2024-11-08 00:16:11 28.5 pg F 25.9-34.2 Erythrocytes [#/volume] in Blood by Automated count 2024-11-08 00:16:11 4.46 x 10^6 cells/uL F 3.85-5.2 MCHC [Mass/volume] by Automated count 2024-11-08 00:16:11 29.5 g/dL F 29.6-35.3 Erythrocyte distribution width [Ratio] by Automated count 2024-11-08 00:16:11 18.1 % F 11.0-15.0 Platelets [#/volume] in Blood by Automated count 2024-11-08 00:16:11 204 x 10^3 cells/uL F 140.0-450.0 Hemoglobin [Mass/volume] in Blood 2024-11-08 00:16:11 12.7 g/dL F 12.0-16.0 Platelets [#/volume] in Blood by Automated count 2024-11-08 00:16:11 204 x 10^3 cells/uL F 140.0-450.0 MCHC [Mass/volume] by Automated count 2024-11-08 00:16:11 29.5 g/dL F 29.6-35.3 Erythrocytes [#/volume] in Blood by Automated count 2024-11-08 00:16:11 4.46 x 10^6 cells/uL F 3.85-5.2 Hematocrit [Volume Fraction] of Blood by Automated count 2024-11-08 00:16:11 43 % F 37.0-47.0 MCH [Entitic mass] by Automated count 2024-11-08 00:16:11 28.5 pg F 25.9-34.2 Erythrocyte distribution width [Ratio] by Automated count 2024-11-08 00:16:11 18.1 % F 11.0-15.0 MCV [Entitic volume] by Automated count 2024-11-08 00:16:11 96.6 fL F 80.0-100.0 Erythrocyte distribution width [Ratio] by Automated count 2024-11-08 00:16:11 18.1 % F 11.0-15.0 Hemoglobin [Mass/volume] in Blood 2024-11-08 00:16:11 12.7 g/dL F 12.0-16.0 Platelets [#/volume] in Blood by Automated count 2024-11-08 00:16:11 204 x 10^3 cells/uL F 140.0-450.0 MCH [Entitic mass] by Automated count 2024-11-08 00:16:11 28.5 pg F 25.9-34.2 MCHC [Mass/volume] by Automated count 2024-11-08 00:16:11 29.5 g/dL F 29.6-35.3 Hematocrit [Volume Fraction] of Blood by Automated count 2024-11-08 00:16:11 43 % F 37.0-47.0 Erythrocytes [#/volume] in Blood by Automated count 2024-11-08 00:16:11 4.46 x 10^6 cells/uL F 3.85-5.2 MCV [Entitic volume] by Automated count 2024-11-08 00:16:11 96.6 fL F 80.0-100.0 Ferritin [Mass/volume] in Serum or Plasma 2024-11-06 20:46:30 F CANCELED - TEST CANCELED Ferritin [Mass/volume] in Serum or Plasma 2024-11-06 20:46:30 F CANCELED - TEST CANCELED Ferritin [Mass/volume] in Serum or Plasma 2024-11-06 20:46:30 F CANCELED - TEST CANCELED,CANCELE D - TEST CANCELED HCT CALC HGBX3 2024-10-28 21:51:54 see comments F 37.0-47.0 Unable to Calculate. HCT CALC HGBX3 2024-10-10 16:16:24 37.2 % F 37.0-47.0 Hemoglobin [Mass/volume] in Blood 2024-10-10 16:15:15 12.4 g/dL F 12.0-16.0 Hemoglobin [Mass/volume] in Blood 2024-10-10 16:15:15 12.4 g/dL F 12.0-16.0 Hemoglobin [Mass/volume] in Blood 2024-10-10 16:15:15 12.4 g/dL F 12.0-16.0 Hemoglobin [Mass/volume] in Blood 2024-10-10 16:15:15 12.4 g/dL F 12.0-16.0 Ferritin [Mass/volume] in Serum or Plasma 2024-09-20 06:26:09 1635 ng/mL F 10.0-291.0 IRON SATURATION 2024-09-20 04:04:50 94 % F 16.0-46.0 TIBC 2024-09-20 04:04:50 225 ug/dL F 250.0-425.0 Iron [Mass/volume] in Serum or Plasma 2024-09-20 03:58:39 211 ug/dL F 50.0-170.0 Iron binding capacity.unsaturated [Mass/volume] in Serum or Plasma 2024-09-20 03:58:39 14 ug/dL F 80.0-375.0 HCT CALC HGBX3 2024-09-19 21:27:14 36.3 % F 37.0-47.0 Erythrocyte distribution width [Ratio] by Automated count 2024-09-19 21:26:22 16.1 % F 11.0-15.0 Hemoglobin [Mass/volume] in Blood 2024-09-19 21:26:22 12.1 g/dL F 12.0-16.0 Platelets [#/volume] in Blood by Automated count 2024-09-19 21:26:22 247 x 10^3 cells/uL F 140.0-450.0 MCH [Entitic mass] by Automated count 2024-09-19 21:26:22 30 pg F 25.9-34.2 MCHC [Mass/volume] by Automated count 2024-09-19 21:26:22 30.9 g/dL F 29.6-35.3 Erythrocytes [#/volume] in Blood by Automated count 2024-09-19 21:26:22 4.04 x 10^6 cells/uL F 3.85-5.2 Hematocrit [Volume Fraction] of Blood by Automated count 2024-09-19 21:26:22 39.2 % F 37.0-47.0 MCV [Entitic volume] by Automated count 2024-09-19 21:26:22 97 fL F 80.0-100.0 HCT CALC HGBX3 2024-09-05 21:34:39 30.6 % F 37.0-47.0 HCT CALC HGBX3 2024-09-05 21:34:39 30.6 % F 37.0-47.0 Hemoglobin [Mass/volume] in Blood 2024-09-05 21:33:23 10.2 g/dL F 12.0-16.0 Hemoglobin [Mass/volume] in Blood 2024-09-05 21:33:23 10.2 g/dL F 12.0-16.0 Hemoglobin [Mass/volume] in Blood 2024-08-29 17:02:39 F RECOLLECT - OUTDATED SPECIMEN MCH [Entitic mass] by Automated count 2024-08-29 17:02:39 F RECOLLECT - OUTDATED SPECIMEN Platelets [#/volume] in Blood by Automated count 2024-08-29 17:02:39 F RECOLLECT - OUTDATED SPECIMEN HCT CALC HGBX3 2024-08-29 17:02:39 F RECOLLECT - OUTDATED SPECIMEN,Unable to Calculate. Erythrocyte distribution width [Ratio] by Automated count 2024-08-29 17:02:39 F RECOLLECT - OUTDATED SPECIMEN MCV [Entitic volume] by Automated count 2024-08-29 17:02:39 F RECOLLECT - OUTDATED SPECIMEN,NOTE: MCV may be falsely elevated in aged samples (approximately 72 hours). Hematocrit [Volume Fraction] of Blood by Automated count 2024-08-29 17:02:39 F RECOLLECT - OUTDATED SPECIMEN Erythrocytes [#/volume] in Blood by Automated count 2024-08-29 17:02:39 F RECOLLECT - OUTDATED SPECIMEN MCHC [Mass/volume] by Automated count 2024-08-29 17:02:39 F RECOLLECT - OUTDATED SPECIMEN Hematocrit [Volume Fraction] of Blood by Automated count 2024-08-29 17:02:39 F RECOLLECT - OUTDATED SPECIMEN Erythrocytes [#/volume] in Blood by Automated count 2024-08-29 17:02:39 F RECOLLECT - OUTDATED SPECIMEN MCV [Entitic volume] by Automated count 2024-08-29 17:02:39 F RECOLLECT - OUTDATED SPECIMEN,NOTE: MCV may be falsely elevated in aged samples (approximately 72 hours). MCHC [Mass/volume] by Automated count 2024-08-29 17:02:39 F RECOLLECT - OUTDATED SPECIMEN Hemoglobin [Mass/volume] in Blood 2024-08-29 17:02:39 F RECOLLECT - OUTDATED SPECIMEN Platelets [#/volume] in Blood by Automated count 2024-08-29 17:02:39 F RECOLLECT - OUTDATED SPECIMEN HCT CALC HGBX3 2024-08-29 17:02:39 F RECOLLECT - OUTDATED SPECIMEN,Unable to Calculate. Erythrocyte distribution width [Ratio] by Automated count 2024-08-29 17:02:39 F RECOLLECT - OUTDATED SPECIMEN MCH [Entitic mass] by Automated count 2024-08-29 17:02:39 F RECOLLECT - OUTDATED SPECIMEN IRON SATURATION 2024-08-23 08:25:44 18 % F 16.0-46.0 TIBC 2024-08-23 08:25:44 234 ug/dL F 250.0-425.0 TIBC 2024-08-23 08:25:44 234 ug/dL F 250.0-425.0 IRON SATURATION 2024-08-23 08:25:44 18 % F 16.0-46.0 IRON SATURATION 2024-08-23 08:25:44 18 % F 16.0-46.0 TIBC 2024-08-23 08:25:44 234 ug/dL F 250.0-425.0 Iron [Mass/volume] in Serum or Plasma 2024-08-23 07:15:16 42 ug/dL F 50.0-170.0 Iron binding capacity.unsaturated [Mass/volume] in Serum or Plasma 2024-08-23 07:15:16 192 ug/dL F 80.0-375.0 Iron [Mass/volume] in Serum or Plasma 2024-08-23 07:15:16 42 ug/dL F 50.0-170.0 Iron binding capacity.unsaturated [Mass/volume] in Serum or Plasma 2024-08-23 07:15:16 192 ug/dL F 80.0-375.0 Iron binding capacity.unsaturated [Mass/volume] in Serum or Plasma 2024-08-23 07:15:16 192 ug/dL F 80.0-375.0 Iron [Mass/volume] in Serum or Plasma 2024-08-23 07:15:16 42 ug/dL F 50.0-170.0 Ferritin [Mass/volume] in Serum or Plasma 2024-08-23 06:36:08 833 ng/mL F 10.0-291.0 Ferritin [Mass/volume] in Serum or Plasma 2024-08-23 06:36:08 833 ng/mL F 10.0-291.0 Ferritin [Mass/volume] in Serum or Plasma 2024-08-23 06:36:08 833 ng/mL F 10.0-291.0 HCT CALC HGBX3 2024-08-23 02:36:46 F Recollect - Clot Detected,Unable to Calculate. HCT CALC HGBX3 2024-08-23 02:36:46 F Recollect - Clot Detected,Unable to Calculate. HCT CALC HGBX3 2024-08-23 02:36:46 F Recollect - Clot Detected,Unable to Calculate. Erythrocyte distribution width [Ratio] by Automated count 2024-08-23 02:36:09 F Recollect - Clot Detected Hematocrit [Volume Fraction] of Blood by Automated count 2024-08-23 02:36:09 F Recollect - Clot Detected Platelets [#/volume] in Blood by Automated count 2024-08-23 02:36:09 F Recollect - Clot Detected Hemoglobin [Mass/volume] in Blood 2024-08-23 02:36:09 F Recollect - Clot Detected Erythrocytes [#/volume] in Blood by Automated count 2024-08-23 02:36:09 F Recollect - Clot Detected MCH [Entitic mass] by Automated count 2024-08-23 02:36:09 F Recollect - Clot Detected MCV [Entitic volume] by Automated count 2024-08-23 02:36:09 F Recollect - Clot Detected MCHC [Mass/volume] by Automated count 2024-08-23 02:36:09 F Recollect - Clot Detected Erythrocyte distribution width [Ratio] by Automated count 2024-08-23 02:36:09 F Recollect - Clot Detected MCHC [Mass/volume] by Automated count 2024-08-23 02:36:09 F Recollect - Clot Detected MCH [Entitic mass] by Automated count 2024-08-23 02:36:09 F Recollect - Clot Detected Platelets [#/volume] in Blood by Automated count 2024-08-23 02:36:09 F Recollect - Clot Detected Erythrocytes [#/volume] in Blood by Automated count 2024-08-23 02:36:09 F Recollect - Clot Detected Hemoglobin [Mass/volume] in Blood 2024-08-23 02:36:09 F Recollect - Clot Detected MCV [Entitic volume] by Automated count 2024-08-23 02:36:09 F Recollect - Clot Detected Hematocrit [Volume Fraction] of Blood by Automated count 2024-08-23 02:36:09 F Recollect - Clot Detected Hemoglobin [Mass/volume] in Blood 2024-08-23 02:36:09 F Recollect - Clot Detected Platelets [#/volume] in Blood by Automated count 2024-08-23 02:36:09 F Recollect - Clot Detected MCHC [Mass/volume] by Automated count 2024-08-23 02:36:09 F Recollect - Clot Detected Erythrocyte distribution width [Ratio] by Automated count 2024-08-23 02:36:09 F Recollect - Clot Detected Erythrocytes [#/volume] in Blood by Automated count 2024-08-23 02:36:09 F Recollect - Clot Detected Hematocrit [Volume Fraction] of Blood by Automated count 2024-08-23 02:36:09 F Recollect - Clot Detected MCH [Entitic mass] by Automated count 2024-08-23 02:36:09 F Recollect - Clot Detected MCV [Entitic volume] by Automated count 2024-08-23 02:36:09 F Recollect - Clot Detected HCT CALC HGBX3 2024-08-08 22:21:59 31.5 % F 37.0-47.0 HCT CALC HGBX3 2024-08-08 22:21:59 31.5 % F 37.0-47.0 Hemoglobin [Mass/volume] in Blood 2024-08-08 22:21:17 10.5 g/dL F 12.0-16.0 Hemoglobin [Mass/volume] in Blood 2024-08-08 22:21:17 10.5 g/dL F 12.0-16.0 Ferritin [Mass/volume] in Serum or Plasma 2024-05-24 08:21:04 794 ng/mL F 10.0-291.0 Ferritin [Mass/volume] in Serum or Plasma 2024-05-24 08:21:04 794 ng/mL F 10.0-291.0 Ferritin [Mass/volume] in Serum or Plasma 2024-05-24 08:21:04 794 ng/mL F 10.0-291.0 IRON SATURATION 2024-05-24 04:52:26 35 % F 16.0-46.0 TIBC 2024-05-24 04:52:26 227 ug/dL F 250.0-425.0 IRON SATURATION 2024-05-24 04:52:26 35 % F 16.0-46.0 TIBC 2024-05-24 04:52:26 227 ug/dL F 250.0-425.0 IRON SATURATION 2024-05-24 04:52:26 35 % F 16.0-46.0 TIBC 2024-05-24 04:52:26 227 ug/dL F 250.0-425.0 Iron binding capacity.unsaturated [Mass/volume] in Serum or Plasma 2024-05-24 04:50:50 147 ug/dL F 80.0-375.0 Iron binding capacity.unsaturated [Mass/volume] in Serum or Plasma 2024-05-24 04:50:50 147 ug/dL F 80.0-375.0 Iron binding capacity.unsaturated [Mass/volume] in Serum or Plasma 2024-05-24 04:50:50 147 ug/dL F 80.0-375.0 HCT CALC HGBX3 2024-05-23 19:19:04 36 % F 37.0-47.0 HCT CALC HGBX3 2024-05-23 19:19:04 36 % F 37.0-47.0 HCT CALC HGBX3 2024-05-23 19:19:04 36 % F 37.0-47.0 Erythrocyte distribution width [Ratio] by Automated count 2024-05-23 19:18:10 15.3 % F 11.0-15.0 Hemoglobin [Mass/volume] in Blood 2024-05-23 19:18:10 12 g/dL F 12.0-16.0 Platelets [#/volume] in Blood by Automated count 2024-05-23 19:18:10 262 x 10^3 cells/uL F 140.0-450.0 MCH [Entitic mass] by Automated count 2024-05-23 19:18:10 29.6 pg F 25.9-34.2 MCHC [Mass/volume] by Automated count 2024-05-23 19:18:10 31 g/dL F 29.6-35.3 Erythrocytes [#/volume] in Blood by Automated count 2024-05-23 19:18:10 4.05 x 10'6 cells/uL F 3.85-5.2 Hematocrit [Volume Fraction] of Blood by Automated count 2024-05-23 19:18:10 38.6 % F 37.0-47.0 MCV [Entitic volume] by Automated count 2024-05-23 19:18:10 95.3 fL F 80.0-100.0 Hemoglobin [Mass/volume] in Blood 2024-05-23 19:18:10 12 g/dL F 12.0-16.0 Erythrocyte distribution width [Ratio] by Automated count 2024-05-23 19:18:10 15.3 % F 11.0-15.0 Platelets [#/volume] in Blood by Automated count 2024-05-23 19:18:10 262 x 10^3 cells/uL F 140.0-450.0 MCH [Entitic mass] by Automated count 2024-05-23 19:18:10 29.6 pg F 25.9-34.2 MCHC [Mass/volume] by Automated count 2024-05-23 19:18:10 31 g/dL F 29.6-35.3 Erythrocytes [#/volume] in Blood by Automated count 2024-05-23 19:18:10 4.05 x 10'6 cells/uL F 3.85-5.2 Hematocrit [Volume Fraction] of Blood by Automated count 2024-05-23 19:18:10 38.6 % F 37.0-47.0 MCV [Entitic volume] by Automated count 2024-05-23 19:18:10 95.3 fL F 80.0-100.0 Erythrocyte distribution width [Ratio] by Automated count 2024-05-23 19:18:10 15.3 % F 11.0-15.0 Hemoglobin [Mass/volume] in Blood 2024-05-23 19:18:10 12 g/dL F 12.0-16.0 Platelets [#/volume] in Blood by Automated count 2024-05-23 19:18:10 262 x 10^3 cells/uL F 140.0-450.0 MCH [Entitic mass] by Automated count 2024-05-23 19:18:10 29.6 pg F 25.9-34.2 MCHC [Mass/volume] by Automated count 2024-05-23 19:18:10 31 g/dL F 29.6-35.3 Erythrocytes [#/volume] in Blood by Automated count 2024-05-23 19:18:10 4.05 x 10'6 cells/uL F 3.85-5.2 Hematocrit [Volume Fraction] of Blood by Automated count 2024-05-23 19:18:10 38.6 % F 37.0-47.0 MCV [Entitic volume] by Automated count 2024-05-23 19:18:10 95.3 fL F 80.0-100.0 Iron [Mass/volume] in Serum or Plasma 2024-05-23 18:37:05 80 ug/dL F 50.0-170.0 Iron [Mass/volume] in Serum or Plasma 2024-05-23 18:37:05 80 ug/dL F 50.0-170.0 Iron [Mass/volume] in Serum or Plasma 2024-05-23 18:37:05 80 ug/dL F 50.0-170.0 HCT CALC HGBX3 2023-09-21 15:57:26 38.1 % F 37.0-47.0 Erythrocyte distribution width [Ratio] by Automated count 2023-09-21 15:56:31 16.2 % F 11.0-15.0 Platelets [#/volume] in Blood by Automated count 2023-09-21 15:56:31 153 x 10^3 cells/uL F 140.0-450.0 Hemoglobin [Mass/volume] in Blood 2023-09-21 15:56:31 12.7 g/dL F 12.0-16.0 MCH [Entitic mass] by Automated count 2023-09-21 15:56:31 29.7 pg F 25.9-34.2 MCHC [Mass/volume] by Automated count 2023-09-21 15:56:31 30.9 g/dL F 29.6-35.3 Erythrocytes [#/volume] in Blood by Automated count 2023-09-21 15:56:31 4.28 x 10'6 cells/uL F 3.85-5.2 Hematocrit [Volume Fraction] of Blood by Automated count 2023-09-21 15:56:31 41.1 % F 37.0-47.0 MCV [Entitic volume] by Automated count 2023-09-21 15:56:31 96 fL F 80.0-100.0 IRON SATURATION 2023-08-25 02:45:29 13 % F 16.0-46.0 TIBC 2023-08-25 02:45:29 255 ug/dL F 250.0-425.0 IRON SATURATION 2023-08-25 02:45:29 13 % F 16.0-46.0 TIBC 2023-08-25 02:45:29 255 ug/dL F 250.0-425.0 IRON SATURATION 2023-08-25 02:45:29 13 % F 16.0-46.0 TIBC 2023-08-25 02:45:29 255 ug/dL F 250.0-425.0 Iron [Mass/volume] in Serum or Plasma 2023-08-25 02:43:50 34 ug/dL F 50.0-170.0 Iron binding capacity.unsaturated [Mass/volume] in Serum or Plasma 2023-08-25 02:43:50 221 ug/dL F 80.0-375.0 Iron [Mass/volume] in Serum or Plasma 2023-08-25 02:43:50 34 ug/dL F 50.0-170.0 Iron binding capacity.unsaturated [Mass/volume] in Serum or Plasma 2023-08-25 02:43:50 221 ug/dL F 80.0-375.0 Iron [Mass/volume] in Serum or Plasma 2023-08-25 02:43:50 34 ug/dL F 50.0-170.0 Iron binding capacity.unsaturated [Mass/volume] in Serum or Plasma 2023-08-25 02:43:50 221 ug/dL F 80.0-375.0 Ferritin [Mass/volume] in Serum or Plasma 2023-08-24 20:37:57 355 ng/mL F 10.0-291.0 Ferritin [Mass/volume] in Serum or Plasma 2023-08-24 20:37:57 355 ng/mL F 10.0-291.0 Ferritin [Mass/volume] in Serum or Plasma 2023-08-24 20:37:57 355 ng/mL F 10.0-291.0 HCT CALC HGBX3 2023-08-24 17:50:27 37.2 % F 37.0-47.0 HCT CALC HGBX3 2023-08-24 17:50:27 37.2 % F 37.0-47.0 HCT CALC HGBX3 2023-08-24 17:50:27 37.2 % F 37.0-47.0 Hemoglobin [Mass/volume] in Blood 2023-08-24 17:50:16 12.4 g/dL F 12.0-16.0 Erythrocyte distribution width [Ratio] by Automated count 2023-08-24 17:50:16 16 % F 11.0-15.0 Platelets [#/volume] in Blood by Automated count 2023-08-24 17:50:16 179 x 10^3 cells/uL F 140.0-450.0 MCH [Entitic mass] by Automated count 2023-08-24 17:50:16 30.9 pg F 25.9-34.2 MCHC [Mass/volume] by Automated count 2023-08-24 17:50:16 31.8 g/dL F 29.6-35.3 Erythrocytes [#/volume] in Blood by Automated count 2023-08-24 17:50:16 4.02 x 10'6 cells/uL F 3.85-5.2 Erythrocyte distribution width [Ratio] by Automated count 2023-08-24 17:50:16 16 % F 11.0-15.0 Hemoglobin [Mass/volume] in Blood 2023-08-24 17:50:16 12.4 g/dL F 12.0-16.0 Platelets [#/volume] in Blood by Automated count 2023-08-24 17:50:16 179 x 10^3 cells/uL F 140.0-450.0 MCH [Entitic mass] by Automated count 2023-08-24 17:50:16 30.9 pg F 25.9-34.2 MCHC [Mass/volume] by Automated count 2023-08-24 17:50:16 31.8 g/dL F 29.6-35.3 Erythrocytes [#/volume] in Blood by Automated count 2023-08-24 17:50:16 4.02 x 10'6 cells/uL F 3.85-5.2 Erythrocyte distribution width [Ratio] by Automated count 2023-08-24 17:50:16 16 % F 11.0-15.0 Hemoglobin [Mass/volume] in Blood 2023-08-24 17:50:16 12.4 g/dL F 12.0-16.0 Platelets [#/volume] in Blood by Automated count 2023-08-24 17:50:16 179 x 10^3 cells/uL F 140.0-450.0 MCH [Entitic mass] by Automated count 2023-08-24 17:50:16 30.9 pg F 25.9-34.2 MCHC [Mass/volume] by Automated count 2023-08-24 17:50:16 31.8 g/dL F 29.6-35.3 Erythrocytes [#/volume] in Blood by Automated count 2023-08-24 17:50:16 4.02 x 10'6 cells/uL F 3.85-5.2 Hematocrit [Volume Fraction] of Blood by Automated count 2023-08-24 17:50:14 38.9 % F 37.0-47.0 MCV [Entitic volume] by Automated count 2023-08-24 17:50:14 97 fL F 80.0-100.0 Hematocrit [Volume Fraction] of Blood by Automated count 2023-08-24 17:50:14 38.9 % F 37.0-47.0 MCV [Entitic volume] by Automated count 2023-08-24 17:50:14 97 fL F 80.0-100.0 Hematocrit [Volume Fraction] of Blood by Automated count 2023-08-24 17:50:14 38.9 % F 37.0-47.0 MCV [Entitic volume] by Automated count 2023-08-24 17:50:14 97 fL F 80.0-100.0 HCT CALC HGBX3 2023-07-21 06:32:18 F Recollect - Clot Detected HCT CALC HGBX3 2023-07-21 06:32:18 F Recollect - Clot Detected MCHC [Mass/volume] by Automated count 2023-07-21 06:31:17 F Recollect - Clot Detected Hematocrit [Volume Fraction] of Blood by Automated count 2023-07-21 06:31:17 F Recollect - Clot Detected Platelets [#/volume] in Blood by Automated count 2023-07-21 06:31:17 F Recollect - Clot Detected Erythrocytes [#/volume] in Blood by Automated count 2023-07-21 06:31:17 F Recollect - Clot Detected MCV [Entitic volume] by Automated count 2023-07-21 06:31:17 F Recollect - Clot Detected Erythrocyte distribution width [Ratio] by Automated count 2023-07-21 06:31:17 F Recollect - Clot Detected MCH [Entitic mass] by Automated count 2023-07-21 06:31:17 F Recollect - Clot Detected Hemoglobin [Mass/volume] in Blood 2023-07-21 06:31:17 F Recollect - Clot Detected Hematocrit [Volume Fraction] of Blood by Automated count 2023-07-21 06:31:17 F Recollect - Clot Detected Erythrocytes [#/volume] in Blood by Automated count 2023-07-21 06:31:17 F Recollect - Clot Detected MCHC [Mass/volume] by Automated count 2023-07-21 06:31:17 F Recollect - Clot Detected Platelets [#/volume] in Blood by Automated count 2023-07-21 06:31:17 F Recollect - Clot Detected Hemoglobin [Mass/volume] in Blood 2023-07-21 06:31:17 F Recollect - Clot Detected MCV [Entitic volume] by Automated count 2023-07-21 06:31:17 F Recollect - Clot Detected Erythrocyte distribution width [Ratio] by Automated count 2023-07-21 06:31:17 F Recollect - Clot Detected MCH [Entitic mass] by Automated count 2023-07-21 06:31:17 F Recollect - Clot Detected HCT CALC HGBX3 2023-06-22 15:00:02 28.5 % F 37.0-47.0 HCT CALC HGBX3 2023-06-22 15:00:02 28.5 % F 37.0-47.0 HCT CALC HGBX3 2023-06-22 15:00:02 28.5 % F 37.0-47.0 Erythrocyte distribution width [Ratio] by Automated count 2023-06-22 14:59:40 15.5 % F 11.0-15.0 Hemoglobin [Mass/volume] in Blood 2023-06-22 14:59:40 9.5 g/dL F 12.0-16.0 Platelets [#/volume] in Blood by Automated count 2023-06-22 14:59:40 224 x 10^3 cells/uL F 140.0-450.0 MCH [Entitic mass] by Automated count 2023-06-22 14:59:40 30.6 pg F 25.9-34.2 MCHC [Mass/volume] by Automated count 2023-06-22 14:59:40 32.9 g/dL F 29.6-35.3 Erythrocytes [#/volume] in Blood by Automated count 2023-06-22 14:59:40 3.11 x 10'6 cells/uL F 3.85-5.2 Hematocrit [Volume Fraction] of Blood by Automated count 2023-06-22 14:59:40 28.9 % F 37.0-47.0 MCV [Entitic volume] by Automated count 2023-06-22 14:59:40 92.9 fL F 80.0-100.0 Hemoglobin [Mass/volume] in Blood 2023-06-22 14:59:40 9.5 g/dL F 12.0-16.0 Platelets [#/volume] in Blood by Automated count 2023-06-22 14:59:40 224 x 10^3 cells/uL F 140.0-450.0 MCH [Entitic mass] by Automated count 2023-06-22 14:59:40 30.6 pg F 25.9-34.2 MCHC [Mass/volume] by Automated count 2023-06-22 14:59:40 32.9 g/dL F 29.6-35.3 Erythrocytes [#/volume] in Blood by Automated count 2023-06-22 14:59:40 3.11 x 10'6 cells/uL F 3.85-5.2 MCV [Entitic volume] by Automated count 2023-06-22 14:59:40 92.9 fL F 80.0-100.0 Erythrocyte distribution width [Ratio] by Automated count 2023-06-22 14:59:40 15.5 % F 11.0-15.0 Hematocrit [Volume Fraction] of Blood by Automated count 2023-06-22 14:59:40 28.9 % F 37.0-47.0 Erythrocyte distribution width [Ratio] by Automated count 2023-06-22 14:59:40 15.5 % F 11.0-15.0 Platelets [#/volume] in Blood by Automated count 2023-06-22 14:59:40 224 x 10^3 cells/uL F 140.0-450.0 Hemoglobin [Mass/volume] in Blood 2023-06-22 14:59:40 9.5 g/dL F 12.0-16.0 MCHC [Mass/volume] by Automated count 2023-06-22 14:59:40 32.9 g/dL F 29.6-35.3 MCH [Entitic mass] by Automated count 2023-06-22 14:59:40 30.6 pg F 25.9-34.2 Erythrocytes [#/volume] in Blood by Automated count 2023-06-22 14:59:40 3.11 x 10'6 cells/uL F 3.85-5.2 Hematocrit [Volume Fraction] of Blood by Automated count 2023-06-22 14:59:40 28.9 % F 37.0-47.0 MCV [Entitic volume] by Automated count 2023-06-22 14:59:40 92.9 fL F 80.0-100.0 IRON SATURATION 2023-05-19 05:25:06 32 % F 16.0-46.0 TIBC 2023-05-19 05:25:06 265 ug/dL F 250.0-425.0 Iron [Mass/volume] in Serum or Plasma 2023-05-19 05:16:00 85 ug/dL F 50.0-170.0 Iron binding capacity.unsaturated [Mass/volume] in Serum or Plasma 2023-05-19 05:16:00 180 ug/dL F 80.0-375.0 Ferritin [Mass/volume] in Serum or Plasma 2023-05-19 03:16:30 683 ng/mL F 10.0-291.0 HCT CALC HGBX3 2023-05-18 16:39:48 31.8 % F 37.0-47.0 Erythrocyte distribution width [Ratio] by Automated count 2023-05-18 16:38:44 13.7 % F 11.0-15.0 Platelets [#/volume] in Blood by Automated count 2023-05-18 16:38:44 190 x 10^3 cells/uL F 140.0-450.0 Hemoglobin [Mass/volume] in Blood 2023-05-18 16:38:44 10.6 g/dL F 12.0-16.0 MCH [Entitic mass] by Automated count 2023-05-18 16:38:44 30.5 pg F 25.9-34.2 Erythrocytes [#/volume] in Blood by Automated count 2023-05-18 16:38:44 3.48 x 10'6 cells/uL F 3.85-5.2 MCHC [Mass/volume] by Automated count 2023-05-18 16:38:44 33 g/dL F 29.6-35.3 Hematocrit [Volume Fraction] of Blood by Automated count 2023-05-18 16:38:44 32.2 % F 37.0-47.0 MCV [Entitic volume] by Automated count 2023-05-18 16:38:44 92.6 fL F 80.0-100.0 HCT CALC HGBX3 2023-04-20 23:19:28 33.6 % F 37.0-47.0 Erythrocyte distribution width [Ratio] by Automated count 2023-04-20 23:18:24 13.7 % F 11.0-15.0 Hemoglobin [Mass/volume] in Blood 2023-04-20 23:18:24 11.2 g/dL F 12.0-16.0 MCHC [Mass/volume] by Automated count 2023-04-20 23:18:24 34.4 g/dL F 29.6-35.3 Erythrocytes [#/volume] in Blood by Automated count 2023-04-20 23:18:24 3.58 x 10'6 cells/uL F 3.85-5.2 Hematocrit [Volume Fraction] of Blood by Automated count 2023-04-20 23:18:24 32.7 % F 37.0-47.0 MCV [Entitic volume] by Automated count 2023-04-20 23:18:24 91.3 fL F 80.0-100.0 MCH [Entitic mass] by Automated count 2023-04-20 23:18:24 31.4 pg F 25.9-34.2 Platelets [#/volume] in Blood by Automated count 2023-04-20 23:18:24 278 x 10^3 cells/uL F 140.0-450.0 HCT CALC HGBX3 2023-03-23 18:24:08 37.5 % F 37.0-47.0 HCT CALC HGBX3 2023-03-23 18:24:08 37.5 % F 37.0-47.0 Erythrocyte distribution width [Ratio] by Automated count 2023-03-23 18:23:35 14.4 % F 11.0-15.0 Hemoglobin [Mass/volume] in Blood 2023-03-23 18:23:35 12.5 g/dL F 12.0-16.0 Platelets [#/volume] in Blood by Automated count 2023-03-23 18:23:35 195 x 10^3 cells/uL F 140.0-450.0 MCH [Entitic mass] by Automated count 2023-03-23 18:23:35 31.6 pg F 25.9-34.2 MCHC [Mass/volume] by Automated count 2023-03-23 18:23:35 33.3 g/dL F 29.6-35.3 Erythrocytes [#/volume] in Blood by Automated count 2023-03-23 18:23:35 3.97 x 10'6 cells/uL F 3.85-5.2 Hematocrit [Volume Fraction] of Blood by Automated count 2023-03-23 18:23:35 37.6 % F 37.0-47.0 MCV [Entitic volume] by Automated count 2023-03-23 18:23:35 94.8 fL F 80.0-100.0 Erythrocyte distribution width [Ratio] by Automated count 2023-03-23 18:23:35 14.4 % F 11.0-15.0 Hemoglobin [Mass/volume] in Blood 2023-03-23 18:23:35 12.5 g/dL F 12.0-16.0 Platelets [#/volume] in Blood by Automated count 2023-03-23 18:23:35 195 x 10^3 cells/uL F 140.0-450.0 MCH [Entitic mass] by Automated count 2023-03-23 18:23:35 31.6 pg F 25.9-34.2 MCHC [Mass/volume] by Automated count 2023-03-23 18:23:35 33.3 g/dL F 29.6-35.3 Hematocrit [Volume Fraction] of Blood by Automated count 2023-03-23 18:23:35 37.6 % F 37.0-47.0 Erythrocytes [#/volume] in Blood by Automated count 2023-03-23 18:23:35 3.97 x 10'6 cells/uL F 3.85-5.2 MCV [Entitic volume] by Automated count 2023-03-23 18:23:35 94.8 fL F 80.0-100.0 IRON SATURATION 2023-02-24 04:36:40 32 % F 16.0-46.0 TIBC 2023-02-24 04:36:40 248 ug/dL F 250.0-425.0 Iron [Mass/volume] in Serum or Plasma 2023-02-24 04:35:15 79 ug/dL F 50.0-170.0 Iron binding capacity.unsaturated [Mass/volume] in Serum or Plasma 2023-02-24 04:35:15 169 ug/dL F 80.0-375.0 Ferritin [Mass/volume] in Serum or Plasma 2023-02-23 15:03:09 542 ng/mL F 10.0-291.0 HCT CALC HGBX3 2023-02-23 13:12:15 38.4 % F 37.0-47.0 Erythrocyte distribution width [Ratio] by Automated count 2023-02-23 13:11:37 13.8 % F 11.0-15.0 Hemoglobin [Mass/volume] in Blood 2023-02-23 13:11:37 12.8 g/dL F 12.0-16.0 Platelets [#/volume] in Blood by Automated count 2023-02-23 13:11:37 261 x 10^3 cells/uL F 140.0-450.0 MCH [Entitic mass] by Automated count 2023-02-23 13:11:37 31.1 pg F 25.9-34.2 MCHC [Mass/volume] by Automated count 2023-02-23 13:11:37 33.7 g/dL F 29.6-35.3 Erythrocytes [#/volume] in Blood by Automated count 2023-02-23 13:11:37 4.12 x 10'6 cells/uL F 3.85-5.2 Hematocrit [Volume Fraction] of Blood by Automated count 2023-02-23 13:11:37 38 % F 37.0-47.0 MCV [Entitic volume] by Automated count 2023-02-23 13:11:37 92.2 fL F 80.0-100.0 HCT CALC HGBX3 2023-01-19 20:02:04 37.2 % F 37.0-47.0 Hematocrit [Volume Fraction] of Blood by Automated count 2023-01-19 20:01:14 36.4 % F 37.0-47.0 Erythrocyte distribution width [Ratio] by Automated count 2023-01-19 20:01:12 13.8 % F 11.0-15.0 Hemoglobin [Mass/volume] in Blood 2023-01-19 20:01:12 12.4 g/dL F 12.0-16.0 Platelets [#/volume] in Blood by Automated count 2023-01-19 20:01:12 224 x 10^3 cells/uL F 140.0-450.0 MCH [Entitic mass] by Automated count 2023-01-19 20:01:12 31.5 pg F 25.9-34.2 MCHC [Mass/volume] by Automated count 2023-01-19 20:01:12 34 g/dL F 29.6-35.3 Erythrocytes [#/volume] in Blood by Automated count 2023-01-19 20:01:12 3.93 x 10'6 cells/uL F 3.85-5.2 MCV [Entitic volume] by Automated count 2023-01-19 20:01:12 92.7 fL F 80.0-100.0 IRON SATURATION 2022-12-23 01:52:43 21 % F 16.0-46.0 TIBC 2022-12-23 01:52:43 254 ug/dL F 250.0-425.0 IRON SATURATION 2022-12-23 01:52:43 21 % F 16.0-46.0 TIBC 2022-12-23 01:52:43 254 ug/dL F 250.0-425.0 IRON SATURATION 2022-12-23 01:52:43 21 % F 16.0-46.0 TIBC 2022-12-23 01:52:43 254 ug/dL F 250.0-425.0 Iron [Mass/volume] in Serum or Plasma 2022-12-23 01:46:28 54 ug/dL F 50.0-170.0 Iron binding capacity.unsaturated [Mass/volume] in Serum or Plasma 2022-12-23 01:46:28 200 ug/dL F 80.0-375.0 Iron binding capacity.unsaturated [Mass/volume] in Serum or Plasma 2022-12-23 01:46:28 200 ug/dL F 80.0-375.0 Iron [Mass/volume] in Serum or Plasma 2022-12-23 01:46:28 54 ug/dL F 50.0-170.0 Iron [Mass/volume] in Serum or Plasma 2022-12-23 01:46:28 54 ug/dL F 50.0-170.0 Iron binding capacity.unsaturated [Mass/volume] in Serum or Plasma 2022-12-23 01:46:28 200 ug/dL F 80.0-375.0 HCT CALC HGBX3 2022-12-22 18:25:27 36.6 % F 37.0-47.0 HCT CALC HGBX3 2022-12-22 18:25:27 36.6 % F 37.0-47.0 HCT CALC HGBX3 2022-12-22 18:25:27 36.6 % F 37.0-47.0 Erythrocyte distribution width [Ratio] by Automated count 2022-12-22 18:25:12 13.2 % F 11.0-15.0 Hemoglobin [Mass/volume] in Blood 2022-12-22 18:25:12 12.2 g/dL F 12.0-16.0 Platelets [#/volume] in Blood by Automated count 2022-12-22 18:25:12 236 x 10^3 cells/uL F 140.0-450.0 MCH [Entitic mass] by Automated count 2022-12-22 18:25:12 31.6 pg F 25.9-34.2 MCHC [Mass/volume] by Automated count 2022-12-22 18:25:12 33.9 g/dL F 29.6-35.3 Hematocrit [Volume Fraction] of Blood by Automated count 2022-12-22 18:25:12 36.1 % F 37.0-47.0 MCV [Entitic volume] by Automated count 2022-12-22 18:25:12 93.2 fL F 80.0-100.0 Hemoglobin [Mass/volume] in Blood 2022-12-22 18:25:12 12.2 g/dL F 12.0-16.0 Platelets [#/volume] in Blood by Automated count 2022-12-22 18:25:12 236 x 10^3 cells/uL F 140.0-450.0 MCH [Entitic mass] by Automated count 2022-12-22 18:25:12 31.6 pg F 25.9-34.2 MCV [Entitic volume] by Automated count 2022-12-22 18:25:12 93.2 fL F 80.0-100.0 Erythrocyte distribution width [Ratio] by Automated count 2022-12-22 18:25:12 13.2 % F 11.0-15.0 MCHC [Mass/volume] by Automated count 2022-12-22 18:25:12 33.9 g/dL F 29.6-35.3 Hematocrit [Volume Fraction] of Blood by Automated count 2022-12-22 18:25:12 36.1 % F 37.0-47.0 Erythrocyte distribution width [Ratio] by Automated count 2022-12-22 18:25:12 13.2 % F 11.0-15.0 Hemoglobin [Mass/volume] in Blood 2022-12-22 18:25:12 12.2 g/dL F 12.0-16.0 Platelets [#/volume] in Blood by Automated count 2022-12-22 18:25:12 236 x 10^3 cells/uL F 140.0-450.0 MCH [Entitic mass] by Automated count 2022-12-22 18:25:12 31.6 pg F 25.9-34.2 MCHC [Mass/volume] by Automated count 2022-12-22 18:25:12 33.9 g/dL F 29.6-35.3 Hematocrit [Volume Fraction] of Blood by Automated count 2022-12-22 18:25:12 36.1 % F 37.0-47.0 MCV [Entitic volume] by Automated count 2022-12-22 18:25:12 93.2 fL F 80.0-100.0 Erythrocytes [#/volume] in Blood by Automated count 2022-12-22 18:25:10 3.87 x 10'6 cells/uL F 3.85-5.2 Erythrocytes [#/volume] in Blood by Automated count 2022-12-22 18:25:10 3.87 x 10'6 cells/uL F 3.85-5.2 Erythrocytes [#/volume] in Blood by Automated count 2022-12-22 18:25:10 3.87 x 10'6 cells/uL F 3.85-5.2 Ferritin [Mass/volume] in Serum or Plasma 2022-12-22 17:14:09 428 ng/mL F 10.0-291.0 Ferritin [Mass/volume] in Serum or Plasma 2022-12-22 17:14:09 428 ng/mL F 10.0-291.0 Ferritin [Mass/volume] in Serum or Plasma 2022-12-22 17:14:09 428 ng/mL F 10.0-291.0 IRON SATURATION 2022-05-06 02:32:00 28 % F 16.0-46.0 TIBC 2022-05-06 02:32:00 264 ug/dL F 250.0-425.0 IRON SATURATION 2022-05-06 02:32:00 28 % F 16.0-46.0 TIBC 2022-05-06 02:32:00 264 ug/dL F 250.0-425.0 Iron [Mass/volume] in Serum or Plasma 2022-05-06 02:20:10 73 ug/dL F 50.0-170.0 Iron binding capacity.unsaturated [Mass/volume] in Serum or Plasma 2022-05-06 02:20:10 191 ug/dL F 80.0-375.0 Iron [Mass/volume] in Serum or Plasma 2022-05-06 02:20:10 73 ug/dL F 50.0-170.0 Iron binding capacity.unsaturated [Mass/volume] in Serum or Plasma 2022-05-06 02:20:10 191 ug/dL F 80.0-375.0 Ferritin [Mass/volume] in Serum or Plasma 2022-05-05 16:17:53 479 ng/mL F 10.0-291.0 Ferritin [Mass/volume] in Serum or Plasma 2022-05-05 16:17:53 479 ng/mL F 10.0-291.0 HCT CALC HGBX3 2022-05-05 15:52:29 36 % F 37.0-47.0 HCT CALC HGBX3 2022-05-05 15:52:29 36 % F 37.0-47.0 Erythrocytes [#/volume] in Blood by Automated count 2022-05-05 15:51:56 4.15 x 10'6 cells/uL F 4.2-5.4 Erythrocytes [#/volume] in Blood by Automated count 2022-05-05 15:51:56 4.15 x 10'6 cells/uL F 4.2-5.4 Erythrocyte distribution width [Ratio] by Automated count 2022-05-05 15:51:55 14.1 % F 11.0-15.0 Hemoglobin [Mass/volume] in Blood 2022-05-05 15:51:55 12 g/dL F 12.0-16.0 Platelets [#/volume] in Blood by Automated count 2022-05-05 15:51:55 257 x 10^3 cells/uL F 150.0-400.0 MCH [Entitic mass] by Automated count 2022-05-05 15:51:55 29 pg F 27.0-31.0 MCHC [Mass/volume] by Automated count 2022-05-05 15:51:55 31.5 g/dL F 32.0-36.0 Hematocrit [Volume Fraction] of Blood by Automated count 2022-05-05 15:51:55 38.2 % F 37.0-47.0 MCV [Entitic volume] by Automated count 2022-05-05 15:51:55 92.1 fL F 80.0-100.0 Hemoglobin [Mass/volume] in Blood 2022-05-05 15:51:55 12 g/dL F 12.0-16.0 Platelets [#/volume] in Blood by Automated count 2022-05-05 15:51:55 257 x 10^3 cells/uL F 150.0-400.0 Erythrocyte distribution width [Ratio] by Automated count 2022-05-05 15:51:55 14.1 % F 11.0-15.0 MCH [Entitic mass] by Automated count 2022-05-05 15:51:55 29 pg F 27.0-31.0 MCHC [Mass/volume] by Automated count 2022-05-05 15:51:55 31.5 g/dL F 32.0-36.0 Hematocrit [Volume Fraction] of Blood by Automated count 2022-05-05 15:51:55 38.2 % F 37.0-47.0 MCV [Entitic volume] by Automated count 2022-05-05 15:51:55 92.1 fL F 80.0-100.0 FluidBP Description Draw Date Result/Unit Status Ref Range Result Comments Sodium [Moles/volume] in Serum or Plasma 2025-03-21 01:51:49 143 mEq/L F 132.0-146.0 Sodium [Moles/volume] in Serum or Plasma 2025-03-21 01:51:49 143 mEq/L F 132.0-146.0 Sodium [Moles/volume] in Serum or Plasma 2025-02-21 05:50:38 139 mEq/L F 132.0-146.0 Sodium [Moles/volume] in Serum or Plasma 2025-02-21 05:50:38 139 mEq/L F 132.0-146.0 Sodium [Moles/volume] in Serum or Plasma 2025-02-21 05:50:38 139 mEq/L F 132.0-146.0 Sodium [Moles/volume] in Serum or Plasma 2025-01-29 04:36:34 139 mEq/L F 132.0-146.0 Sodium [Moles/volume] in Serum or Plasma 2024-12-19 22:46:05 137 mEq/L F 132.0-146.0 Sodium [Moles/volume] in Serum or Plasma 2024-12-19 22:46:05 137 mEq/L F 132.0-146.0 Sodium [Moles/volume] in Serum or Plasma 2024-12-19 22:46:05 137 mEq/L F 132.0-146.0 Sodium [Moles/volume] in Serum or Plasma 2024-11-08 07:17:40 140 mEq/L F 132.0-146.0 Sodium [Moles/volume] in Serum or Plasma 2024-11-08 07:17:40 140 mEq/L F 132.0-146.0 Sodium [Moles/volume] in Serum or Plasma 2024-11-08 07:17:40 140 mEq/L F 132.0-146.0 Sodium [Moles/volume] in Serum or Plasma 2024-09-19 19:35:06 140 mEq/L F 132.0-146.0 Sodium [Moles/volume] in Serum or Plasma 2024-08-23 07:15:16 139 mEq/L F 132.0-146.0 Sodium [Moles/volume] in Serum or Plasma 2024-08-23 07:15:16 139 mEq/L F 132.0-146.0 Sodium [Moles/volume] in Serum or Plasma 2024-08-23 07:15:16 139 mEq/L F 132.0-146.0 Sodium [Moles/volume] in Serum or Plasma 2024-05-23 16:57:22 139 mEq/L F 132.0-146.0 Sodium [Moles/volume] in Serum or Plasma 2024-05-23 16:57:22 139 mEq/L F 132.0-146.0 Sodium [Moles/volume] in Serum or Plasma 2024-05-23 16:57:22 139 mEq/L F 132.0-146.0 Sodium [Moles/volume] in Serum or Plasma 2023-09-22 02:12:23 140 mEq/L F 132.0-146.0 Sodium [Moles/volume] in Serum or Plasma 2023-08-24 17:28:31 138 mEq/L F 132.0-146.0 Sodium [Moles/volume] in Serum or Plasma 2023-08-24 17:28:31 138 mEq/L F 132.0-146.0 Sodium [Moles/volume] in Serum or Plasma 2023-08-24 17:28:31 138 mEq/L F 132.0-146.0 Sodium [Moles/volume] in Serum or Plasma 2023-07-20 21:08:52 137 mEq/L F 132.0-146.0 Sodium [Moles/volume] in Serum or Plasma 2023-07-20 21:08:52 137 mEq/L F 132.0-146.0 Sodium [Moles/volume] in Serum or Plasma 2023-06-22 18:28:41 138 mEq/L F 132.0-146.0 Sodium [Moles/volume] in Serum or Plasma 2023-06-22 18:28:41 138 mEq/L F 132.0-146.0 Sodium [Moles/volume] in Serum or Plasma 2023-06-22 18:28:41 138 mEq/L F 132.0-146.0 Sodium [Moles/volume] in Serum or Plasma 2023-05-18 20:21:37 140 mEq/L F 132.0-146.0 Sodium [Moles/volume] in Serum or Plasma 2023-04-20 19:35:36 138 mEq/L F 132.0-146.0 Sodium [Moles/volume] in Serum or Plasma 2023-03-23 19:55:35 135 mEq/L F 132.0-146.0 Sodium [Moles/volume] in Serum or Plasma 2023-03-23 19:55:35 135 mEq/L F 132.0-146.0 Sodium [Moles/volume] in Serum or Plasma 2023-02-23 14:23:38 140 mEq/L F 132.0-146.0 Sodium [Moles/volume] in Serum or Plasma 2023-01-19 18:49:17 140 mEq/L F 132.0-146.0 Sodium [Moles/volume] in Serum or Plasma 2022-12-22 18:13:13 137 mEq/L F 132.0-146.0 Sodium [Moles/volume] in Serum or Plasma 2022-12-22 18:13:13 137 mEq/L F 132.0-146.0 Sodium [Moles/volume] in Serum or Plasma 2022-12-22 18:13:13 137 mEq/L F 132.0-146.0 Sodium [Moles/volume] in Serum or Plasma 2022-05-05 19:23:51 138 mEq/L F 132.0-146.0 Sodium [Moles/volume] in Serum or Plasma 2022-05-05 19:23:51 138 mEq/L F 132.0-146.0 General Description Draw Date Result/Unit Status Ref Range Result Comments Chloride [Moles/volume] in Serum or Plasma 2025-03-21 01:51:49 101 mEq/L F 99.0-109.0 Chloride [Moles/volume] in Serum or Plasma 2025-03-21 01:51:49 101 mEq/L F 99.0-109.0 Alanine aminotransferase [Enzymatic activity/volume] in Serum or Plasma 2025-03-20 13:19:07 11 U/L F 10.0-49.0 Aspartate aminotransferase [Enzymatic activity/volume] in Serum or Plasma 2025-03-20 13:19:07 18 U/L F 0.0-33.0 Alanine aminotransferase [Enzymatic activity/volume] in Serum or Plasma 2025-03-20 13:19:07 11 U/L F 10.0-49.0 Aspartate aminotransferase [Enzymatic activity/volume] in Serum or Plasma 2025-03-20 13:19:07 18 U/L F 0.0-33.0 Chloride [Moles/volume] in Serum or Plasma 2025-02-21 05:50:38 99 mEq/L F 99.0-109.0 Chloride [Moles/volume] in Serum or Plasma 2025-02-21 05:50:38 99 mEq/L F 99.0-109.0 Chloride [Moles/volume] in Serum or Plasma 2025-02-21 05:50:38 99 mEq/L F 99.0-109.0 Alanine aminotransferase [Enzymatic activity/volume] in Serum or Plasma 2025-02-20 18:26:12 19 U/L F 10.0-49.0 Aspartate aminotransferase [Enzymatic activity/volume] in Serum or Plasma 2025-02-20 18:26:12 24 U/L F 0.0-33.0 Alanine aminotransferase [Enzymatic activity/volume] in Serum or Plasma 2025-02-20 18:26:12 19 U/L F 10.0-49.0 Aspartate aminotransferase [Enzymatic activity/volume] in Serum or Plasma 2025-02-20 18:26:12 24 U/L F 0.0-33.0 Aspartate aminotransferase [Enzymatic activity/volume] in Serum or Plasma 2025-02-20 18:26:12 24 U/L F 0.0-33.0 Alanine aminotransferase [Enzymatic activity/volume] in Serum or Plasma 2025-02-20 18:26:12 19 U/L F 10.0-49.0 Chloride [Moles/volume] in Serum or Plasma 2025-01-29 04:36:34 102 mEq/L F 99.0-109.0 Alanine aminotransferase [Enzymatic activity/volume] in Serum or Plasma 2025-01-28 16:05:12 9 U/L F 10.0-49.0 Aspartate aminotransferase [Enzymatic activity/volume] in Serum or Plasma 2025-01-28 16:05:12 16 U/L F 0.0-33.0 Chloride [Moles/volume] in Serum or Plasma 2024-12-19 22:46:05 96 mEq/L F 99.0-109.0 Chloride [Moles/volume] in Serum or Plasma 2024-12-19 22:46:05 96 mEq/L F 99.0-109.0 Chloride [Moles/volume] in Serum or Plasma 2024-12-19 22:46:05 96 mEq/L F 99.0-109.0 Alanine aminotransferase [Enzymatic activity/volume] in Serum or Plasma 2024-12-19 14:06:19 14 U/L F 10.0-49.0 Aspartate aminotransferase [Enzymatic activity/volume] in Serum or Plasma 2024-12-19 14:06:19 21 U/L F 0.0-33.0 Aspartate aminotransferase [Enzymatic activity/volume] in Serum or Plasma 2024-12-19 14:06:19 21 U/L F 0.0-33.0 Alanine aminotransferase [Enzymatic activity/volume] in Serum or Plasma 2024-12-19 14:06:19 14 U/L F 10.0-49.0 Aspartate aminotransferase [Enzymatic activity/volume] in Serum or Plasma 2024-12-19 14:06:19 21 U/L F 0.0-33.0 Alanine aminotransferase [Enzymatic activity/volume] in Serum or Plasma 2024-12-19 14:06:19 14 U/L F 10.0-49.0 Chloride [Moles/volume] in Serum or Plasma 2024-11-08 07:17:40 101 mEq/L F 99.0-109.0 Chloride [Moles/volume] in Serum or Plasma 2024-11-08 07:17:40 101 mEq/L F 99.0-109.0 Chloride [Moles/volume] in Serum or Plasma 2024-11-08 07:17:40 101 mEq/L F 99.0-109.0 Aspartate aminotransferase [Enzymatic activity/volume] in Serum or Plasma 2024-11-07 22:54:27 22 U/L F 0.0-33.0 Alanine aminotransferase [Enzymatic activity/volume] in Serum or Plasma 2024-11-07 22:54:27 21 U/L F 10.0-49.0 Alanine aminotransferase [Enzymatic activity/volume] in Serum or Plasma 2024-11-07 22:54:27 21 U/L F 10.0-49.0 Aspartate aminotransferase [Enzymatic activity/volume] in Serum or Plasma 2024-11-07 22:54:27 22 U/L F 0.0-33.0 Aspartate aminotransferase [Enzymatic activity/volume] in Serum or Plasma 2024-11-07 22:54:27 22 U/L F 0.0-33.0 Alanine aminotransferase [Enzymatic activity/volume] in Serum or Plasma 2024-11-07 22:54:27 21 U/L F 10.0-49.0 Chloride [Moles/volume] in Serum or Plasma 2024-09-19 19:35:06 99 mEq/L F 99.0-109.0 Aspartate aminotransferase [Enzymatic activity/volume] in Serum or Plasma 2024-09-19 16:59:24 32 U/L F 0.0-33.0 Alanine aminotransferase [Enzymatic activity/volume] in Serum or Plasma 2024-09-19 16:59:24 29 U/L F 10.0-49.0 Chloride [Moles/volume] in Serum or Plasma 2024-08-29 20:17:44 97 mEq/L F 99.0-109.0 Chloride [Moles/volume] in Serum or Plasma 2024-08-29 20:17:44 97 mEq/L F 99.0-109.0 Aspartate aminotransferase [Enzymatic activity/volume] in Serum or Plasma 2024-08-29 16:23:21 12 U/L F 0.0-33.0 Aspartate aminotransferase [Enzymatic activity/volume] in Serum or Plasma 2024-08-29 16:23:21 12 U/L F 0.0-33.0 Chloride [Moles/volume] in Serum or Plasma 2024-08-23 07:15:16 99 mEq/L F 99.0-109.0 Chloride [Moles/volume] in Serum or Plasma 2024-08-23 07:15:16 99 mEq/L F 99.0-109.0 Chloride [Moles/volume] in Serum or Plasma 2024-08-23 07:15:16 99 mEq/L F 99.0-109.0 Aspartate aminotransferase [Enzymatic activity/volume] in Serum or Plasma 2024-08-22 21:55:14 17 U/L F 0.0-33.0 Alanine aminotransferase [Enzymatic activity/volume] in Serum or Plasma 2024-08-22 21:55:14 19 U/L F 10.0-49.0 Aspartate aminotransferase [Enzymatic activity/volume] in Serum or Plasma 2024-08-22 21:55:14 17 U/L F 0.0-33.0 Alanine aminotransferase [Enzymatic activity/volume] in Serum or Plasma 2024-08-22 21:55:14 19 U/L F 10.0-49.0 Aspartate aminotransferase [Enzymatic activity/volume] in Serum or Plasma 2024-08-22 21:55:14 17 U/L F 0.0-33.0 Alanine aminotransferase [Enzymatic activity/volume] in Serum or Plasma 2024-08-22 21:55:14 19 U/L F 10.0-49.0 Aluminum [Mass/volume] in Serum or Plasma 2024-05-23 18:52:44 10 ug/L F 0.0-9.0 Aluminum [Mass/volume] in Serum or Plasma 2024-05-23 18:52:44 10 ug/L F 0.0-9.0 Aluminum [Mass/volume] in Serum or Plasma 2024-05-23 18:52:44 10 ug/L F 0.0-9.0 Chloride [Moles/volume] in Serum or Plasma 2024-05-23 16:57:22 100 mEq/L F 99.0-109.0 Chloride [Moles/volume] in Serum or Plasma 2024-05-23 16:57:22 100 mEq/L F 99.0-109.0 Chloride [Moles/volume] in Serum or Plasma 2024-05-23 16:57:22 100 mEq/L F 99.0-109.0 Aspartate aminotransferase [Enzymatic activity/volume] in Serum or Plasma 2024-05-23 15:46:22 14 U/L F 0.0-33.0 Alanine aminotransferase [Enzymatic activity/volume] in Serum or Plasma 2024-05-23 15:46:22 14 U/L F 10.0-49.0 Aspartate aminotransferase [Enzymatic activity/volume] in Serum or Plasma 2024-05-23 15:46:22 14 U/L F 0.0-33.0 Alanine aminotransferase [Enzymatic activity/volume] in Serum or Plasma 2024-05-23 15:46:22 14 U/L F 10.0-49.0 Aspartate aminotransferase [Enzymatic activity/volume] in Serum or Plasma 2024-05-23 15:46:22 14 U/L F 0.0-33.0 Alanine aminotransferase [Enzymatic activity/volume] in Serum or Plasma 2024-05-23 15:46:22 14 U/L F 10.0-49.0 Chloride [Moles/volume] in Serum or Plasma 2023-09-22 02:12:23 102 mEq/L F 99.0-109.0 Aspartate aminotransferase [Enzymatic activity/volume] in Serum or Plasma 2023-09-21 15:50:35 15 U/L F 0.0-33.0 Alanine aminotransferase [Enzymatic activity/volume] in Serum or Plasma 2023-09-21 15:50:35 14 U/L F 10.0-49.0 Chloride [Moles/volume] in Serum or Plasma 2023-08-24 17:28:31 97 mEq/L F 99.0-109.0 Chloride [Moles/volume] in Serum or Plasma 2023-08-24 17:28:31 97 mEq/L F 99.0-109.0 Chloride [Moles/volume] in Serum or Plasma 2023-08-24 17:28:31 97 mEq/L F 99.0-109.0 Aspartate aminotransferase [Enzymatic activity/volume] in Serum or Plasma 2023-08-24 16:20:03 11 U/L F 0.0-33.0 Alanine aminotransferase [Enzymatic activity/volume] in Serum or Plasma 2023-08-24 16:20:03 9 U/L F 10.0-49.0 Aspartate aminotransferase [Enzymatic activity/volume] in Serum or Plasma 2023-08-24 16:20:03 11 U/L F 0.0-33.0 Alanine aminotransferase [Enzymatic activity/volume] in Serum or Plasma 2023-08-24 16:20:03 9 U/L F 10.0-49.0 Aspartate aminotransferase [Enzymatic activity/volume] in Serum or Plasma 2023-08-24 16:20:03 11 U/L F 0.0-33.0 Alanine aminotransferase [Enzymatic activity/volume] in Serum or Plasma 2023-08-24 16:20:03 9 U/L F 10.0-49.0 Chloride [Moles/volume] in Serum or Plasma 2023-07-20 21:08:52 93 mEq/L F 99.0-109.0 Chloride [Moles/volume] in Serum or Plasma 2023-07-20 21:08:52 93 mEq/L F 99.0-109.0 Aspartate aminotransferase [Enzymatic activity/volume] in Serum or Plasma 2023-07-20 16:08:42 109 U/L F 0.0-33.0 Alanine aminotransferase [Enzymatic activity/volume] in Serum or Plasma 2023-07-20 16:08:42 185 U/L F 10.0-49.0 Aspartate aminotransferase [Enzymatic activity/volume] in Serum or Plasma 2023-07-20 16:08:42 109 U/L F 0.0-33.0 Alanine aminotransferase [Enzymatic activity/volume] in Serum or Plasma 2023-07-20 16:08:42 185 U/L F 10.0-49.0 Chloride [Moles/volume] in Serum or Plasma 2023-06-22 18:28:41 97 mEq/L F 99.0-109.0 Chloride [Moles/volume] in Serum or Plasma 2023-06-22 18:28:41 97 mEq/L F 99.0-109.0 Chloride [Moles/volume] in Serum or Plasma 2023-06-22 18:28:41 97 mEq/L F 99.0-109.0 Aspartate aminotransferase [Enzymatic activity/volume] in Serum or Plasma 2023-06-22 15:18:32 20 U/L F 0.0-33.0 Alanine aminotransferase [Enzymatic activity/volume] in Serum or Plasma 2023-06-22 15:18:32 18 U/L F 10.0-49.0 Aspartate aminotransferase [Enzymatic activity/volume] in Serum or Plasma 2023-06-22 15:18:32 20 U/L F 0.0-33.0 Alanine aminotransferase [Enzymatic activity/volume] in Serum or Plasma 2023-06-22 15:18:32 18 U/L F 10.0-49.0 Aspartate aminotransferase [Enzymatic activity/volume] in Serum or Plasma 2023-06-22 15:18:32 20 U/L F 0.0-33.0 Alanine aminotransferase [Enzymatic activity/volume] in Serum or Plasma 2023-06-22 15:18:32 18 U/L F 10.0-49.0 Aspartate aminotransferase [Enzymatic activity/volume] in Serum or Plasma 2023-05-18 20:21:37 19 U/L F 0.0-33.0 Alanine aminotransferase [Enzymatic activity/volume] in Serum or Plasma 2023-05-18 20:21:37 23 U/L F 10.0-49.0 Chloride [Moles/volume] in Serum or Plasma 2023-05-18 20:21:37 98 mEq/L F 99.0-109.0 Aluminum [Mass/volume] in Serum or Plasma 2023-05-18 19:29:23 10 ug/L F 0.0-9.0 Aspartate aminotransferase [Enzymatic activity/volume] in Serum or Plasma 2023-04-20 19:35:36 84 U/L F 0.0-33.0 Alanine aminotransferase [Enzymatic activity/volume] in Serum or Plasma 2023-04-20 19:35:36 94 U/L F 10.0-49.0 Chloride [Moles/volume] in Serum or Plasma 2023-04-20 19:35:36 101 mEq/L F 99.0-109.0 Aspartate aminotransferase [Enzymatic activity/volume] in Serum or Plasma 2023-03-23 19:55:35 20 U/L F 0.0-33.0 Alanine aminotransferase [Enzymatic activity/volume] in Serum or Plasma 2023-03-23 19:55:35 22 U/L F 10.0-49.0 Chloride [Moles/volume] in Serum or Plasma 2023-03-23 19:55:35 94 mEq/L F 99.0-109.0 Aspartate aminotransferase [Enzymatic activity/volume] in Serum or Plasma 2023-03-23 19:55:35 20 U/L F 0.0-33.0 Alanine aminotransferase [Enzymatic activity/volume] in Serum or Plasma 2023-03-23 19:55:35 22 U/L F 10.0-49.0 Chloride [Moles/volume] in Serum or Plasma 2023-03-23 19:55:35 94 mEq/L F 99.0-109.0 Aspartate aminotransferase [Enzymatic activity/volume] in Serum or Plasma 2023-02-23 14:23:38 20 U/L F 0.0-33.0 Alanine aminotransferase [Enzymatic activity/volume] in Serum or Plasma 2023-02-23 14:23:38 21 U/L F 10.0-49.0 Chloride [Moles/volume] in Serum or Plasma 2023-02-23 14:23:38 100 mEq/L F 99.0-109.0 Aspartate aminotransferase [Enzymatic activity/volume] in Serum or Plasma 2023-01-19 18:49:17 17 U/L F 0.0-33.0 Alanine aminotransferase [Enzymatic activity/volume] in Serum or Plasma 2023-01-19 18:49:17 22 U/L F 10.0-49.0 Chloride [Moles/volume] in Serum or Plasma 2023-01-19 18:49:17 95 mEq/L F 99.0-109.0 Aspartate aminotransferase [Enzymatic activity/volume] in Serum or Plasma 2022-12-22 18:13:11 18 U/L F 0.0-33.0 Alanine aminotransferase [Enzymatic activity/volume] in Serum or Plasma 2022-12-22 18:13:11 15 U/L F 10.0-49.0 Chloride [Moles/volume] in Serum or Plasma 2022-12-22 18:13:11 94 mEq/L F 99.0-109.0 Alanine aminotransferase [Enzymatic activity/volume] in Serum or Plasma 2022-12-22 18:13:11 15 U/L F 10.0-49.0 Chloride [Moles/volume] in Serum or Plasma 2022-12-22 18:13:11 94 mEq/L F 99.0-109.0 Aspartate aminotransferase [Enzymatic activity/volume] in Serum or Plasma 2022-12-22 18:13:11 18 U/L F 0.0-33.0 Aspartate aminotransferase [Enzymatic activity/volume] in Serum or Plasma 2022-12-22 18:13:11 18 U/L F 0.0-33.0 Alanine aminotransferase [Enzymatic activity/volume] in Serum or Plasma 2022-12-22 18:13:11 15 U/L F 10.0-49.0 Chloride [Moles/volume] in Serum or Plasma 2022-12-22 18:13:11 94 mEq/L F 99.0-109.0 Aspartate aminotransferase [Enzymatic activity/volume] in Serum or Plasma 2022-05-05 19:23:51 23 U/L F 0.0-33.0 Alanine aminotransferase [Enzymatic activity/volume] in Serum or Plasma 2022-05-05 19:23:51 22 U/L F 10.0-49.0 Chloride [Moles/volume] in Serum or Plasma 2022-05-05 19:23:51 97 mEq/L F 99.0-109.0 Aspartate aminotransferase [Enzymatic activity/volume] in Serum or Plasma 2022-05-05 19:23:51 23 U/L F 0.0-33.0 Alanine aminotransferase [Enzymatic activity/volume] in Serum or Plasma 2022-05-05 19:23:51 22 U/L F 10.0-49.0 Chloride [Moles/volume] in Serum or Plasma 2022-05-05 19:23:51 97 mEq/L F 99.0-109.0 Aluminum [Mass/volume] in Serum or Plasma 2022-05-05 18:02:39 10 ug/L F 0.0-9.0 Aluminum [Mass/volume] in Serum or Plasma 2022-05-05 18:02:39 10 ug/L F 0.0-9.0 InfectionVaccination Description Draw Date Result/Unit Status Ref Range Result Comments Basophils/100 leukocytes in Blood by Automated count 2025-03-20 14:01:14 0.9 % F Neutrophils/100 leukocytes in Blood by Automated count 2025-03-20 14:01:14 74.5 % F Lymphocytes/100 leukocytes in Blood by Automated count 2025-03-20 14:01:14 16.6 % F Monocytes/100 leukocytes in Blood by Automated count 2025-03-20 14:01:14 6.9 % F Eosinophils/100 leukocytes in Blood by Automated count 2025-03-20 14:01:14 1.1 % F Leukocytes [#/volume] in Blood by Automated count 2025-03-20 14:01:14 7.6 x 10^3 cells/uL F 4.0-11.0 Neutrophils [#/volume] in Blood by Automated count 2025-03-20 14:01:14 5632 Cells/uL F 2000.0-8800. 0 Lymphocytes [#/volume] in Blood by Automated count 2025-03-20 14:01:14 1255 Cells/uL F 620.0-3660.0 Monocytes [#/volume] in Blood by Automated count 2025-03-20 14:01:14 522 Cells/uL F 0.0-1100.0 Basophils [#/volume] in Blood by Automated count 2025-03-20 14:01:14 68 Cells/uL F 0.0-400.0 Eosinophils [#/volume] in Blood by Automated count 2025-03-20 14:01:14 83 Cells/uL F 0.0-700.0 Basophils/100 leukocytes in Blood by Automated count 2025-03-20 14:01:14 0.9 % F Neutrophils/100 leukocytes in Blood by Automated count 2025-03-20 14:01:14 74.5 % F Monocytes/100 leukocytes in Blood by Automated count 2025-03-20 14:01:14 6.9 % F Lymphocytes/100 leukocytes in Blood by Automated count 2025-03-20 14:01:14 16.6 % F Eosinophils/100 leukocytes in Blood by Automated count 2025-03-20 14:01:14 1.1 % F Leukocytes [#/volume] in Blood by Automated count 2025-03-20 14:01:14 7.6 x 10^3 cells/uL F 4.0-11.0 Neutrophils [#/volume] in Blood by Automated count 2025-03-20 14:01:14 5632 Cells/uL F 2000.0-8800. 0 Lymphocytes [#/volume] in Blood by Automated count 2025-03-20 14:01:14 1255 Cells/uL F 620.0-3660.0 Basophils [#/volume] in Blood by Automated count 2025-03-20 14:01:14 68 Cells/uL F 0.0-400.0 Monocytes [#/volume] in Blood by Automated count 2025-03-20 14:01:14 522 Cells/uL F 0.0-1100.0
[2025-03-29 14:14] VITALS: BP 122/83; PULSE 101; RESP 16; O2SAT 94
--- NOTE | 2025-03-29 14:29 | PC.NURSE ---
Patient is a 59 yo female with a history of ESRD recently discharged from [facility] for penile swelling. Was walking home from [facility] to [place] and chose to lay on the sidewalk to cool off . Bystanders notified the police and patient transferred to this facility. scabbed abrasion noted to bottom lip for a previous fall. Respirations even and non-labored. Abdomen soft, non-tender with positive bowel sounds. SILVIA AVF noted with multiple bruises noted. Significant edema noted from his penis to his feet. Penis care provided by the provider. Patient denies any complaints at this time. Requesting food and water.
[2025-03-29 15:07] VITALS: BP 117/65; PULSE 86; RESP 16; TEMP 36.4; O2SAT 94
[2025-03-29 15:18] VITALS: BP 117/65; PULSE 86; RESP 16; TEMP 36.4; O2SAT 94
== END 2025-03-29 15:09 | disposition home or self-care (01) ==
PROVIDERS: Emergency Provider Emergency Medicine
DX: N18.6 End stage renal disease (principal); Z99.2 Dependence on renal dialysis
CPT/HCPCS: 99283; 99284